=== PATIENT | female | born 1980 | race Caucasian/White ===

== ENCOUNTER 2021-12-10 15:27 | Outpatient (REF) | payer SELFPAY ==
--- OUTSIDE RECORDS SUMMARY | 2021-12-10 15:34 | XMS_ITS | Clinical Summary ---
:1980 Author Organization [facility] Address [address] [place] [address] Care Team Providers Name Role Phone Chelsea Ferrer APRN, C.N.P., D.N.P. Primary Care Provide r Source Comments Patient records contain information from all sites at [facility]. For routine questions regarding patient records, call [phone] during business hours, M-F 8:00 AM - 5:00 PM Central Time. Record requests for emergency care only can be directed to [phone] at any time.[facility] Allergies Active Allergy Reactions Severity Noted Date Comments Ketorolac Itching Low 07/16/2014 Tramadol GI intolerance Low 08/10/2014 Medications Medication Sig Dispensed Refills Start Date End Date Status MULTIVITAMIN WITH Take 1 capsule by 0 12/23/2012 Active MINERALS ORAL mouth daily. ACETAMINOPHEN ORAL Take by mouth. 0 07/16/2014 Active IBUPROFEN ORAL ibuprofen 0 07/16/2014 Acti ve propranolol Take 1 tablet (20 60 tablet 2 07/15/2017 Active (for_INDERAL) 20 mg mg total) by mouth tablet 2 (two) times a day. dextroamphetamine-amph Take 1 tablet (5 60 tablet 0 11/14/2017 Active etamine (ADDERALL) 5 mg total) by mouth mg tablet 2 (two) times a day Earliest Fill Date: 11/14/17. zolpidem (AMBIEN) 5 mg Take 1 tablet (5 30 tablet 1 11/14/2017 Active tablet mg total) by mouth at bedtime as needed for sleep. predniSONE (DELTASONE) Take 6 tabs (60mg) 42 tablet 0 07/30/19 19 Active 10 mg tablet daily for 2 days, then take 5 tabs (50mg) daily for 2 days. Continue to decrease by 1 tab (10mg) every 2 days until gone. 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 Headache Unspecified 07/14/2011 Encounters Date Type Specialty Care Team Description 10/03/2021 Telemedicine General Internal Alex Perez Personal History Of Infectious And Parasitic Disease (COVID-19) (Primary Dx); Medicine Shakila Saez Post COVID-19 Condition Parag Mark M.D. 09/09/2021 Clinical Communication General Internal Prescheduling, Triage Medicine Provider from Last 3 Months Immunizations Name Administration Dates Next Due Influenza Split 01/27/2016 Influenza, Unspecified 02/07/2017, 01/25/2015, 02/14/2014, 1 MMR 10/09/2016 Tdap 10/05/2016 Family History Medical History Relation Name Comments Migraines Brother Hypertension Father Alzheimer's disease Grandfather paternal Breast cancer Grandmother maternal Migraines Mother Ulcerative colitis Mother colonectomy w ith j-pouch Depression Sister Relation Name Status Comments Brother Father Grandfather paternal Grandmother maternal Mother Sister Social History Tobacco Use Types Packs/Day Years Used Date Smoking Tobacco: Never Smokeless Tobacco: Never Alcohol Use Standard Drinks/Week Comments Yes 0 (1 standard drink = 0.6 oz pure alcoho l) OCC Alcohol Habits Answer Date Recorded How often do you have a drink containing alcohol? Not asked How many drinks containing alcohol do you have on a typical Not asked day when you are drinking? How often do you have six or more drinks on one occasion? 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 Body Mass Index 22.31 03/01/2017 2:02 PM BUTCHER HELPER Plan of Treatment Health Maintenance Due Date Last Done Comments Depression Monitoring 1980 (PHQ-9) HIV Screening 1980 Hepatitis C Screening 1980 Mammogram 11/06/2016 11/07/2015 Fasting Lipid Panel 09/29/2017 09/29/2012 Influenza Vaccine (#1) 2022 02/27/2021, 02/27/2021, 02/20/2020, Additional history exists DTaP,Tdap,and Td Vaccines 10/05/2026 10/05/2016, 10/07/2011 , (8 - Td or Tdap) 08/14/2006, Additional history exists Hepatitis B Vaccines Completed 02/04/2005, 08/10/2004, 10/03/2003 COVID-19 Vaccine Completed 03/11/2021, 07/13/2020, 05/19/2020 Pneumococcal vaccine (0-64 Aged Out No lo nger eligible years) based on patient 's age to complete this topic Insurance Payer Benefit Plan / Subscriber ID Effective Phone Address T ype Group Dates PREFERREDONE PREFERREDONE [id number] 2018-Pr [phone] PPO ADMINISTRATIVE ADMINISTRATIVE esent [phone] SERVICES SERVICES [place] [phone] 1988 [address] [place] [address] Care Teams Mother Baby Rn Relationship Specialty Start Date End Date Chelsea Ferrer, NGHIA, C.N.P., D.N.P. PCP - General 01/05/18 [address] [address]
--- OUTSIDE RECORDS SUMMARY | 2021-12-10 15:35 | XMS_ITS | Encounter Summary ---
:1980 Author Organization [facility] Address [address] [place] [address] Care Team Providers Name Role Phone Carlos Nolan M.D. Primary Care Provider [phone] Reason for Visit Reason Comments Communication LABS PRIOR TO HER MED REFILL ? Encounter Details Date Type Department Care Team Description 03/25/2017 Clinical Department of [place] Nolan (LABS Communication Family MedicineCarlos M.D. 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 DISTRIBUTOR TENDER Telephone Encounter - Ana Bedoya L.P.N. - 03/25/2017 4:21 PM OIL DISTRIBUTOR TENDER DISTRIBUTOR TENDER Telephone Encounter - Armani Garcia - 03/25/2017 8:17 AM CST Denice is coming for her med refill on 05-05-17 and can do lab work on 05-04-16 at 9 AM. DISTRIBUTOR TENDER documented in 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 Plan of Treatment Not on filedocumented as of 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 Visit Diagnoses Diagnosis General Medical Examination Adult - Prim edwige documented in 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 Additional Health Concerns Assessment Noted Time PHQ-9 Depression Total Score: 2 09/03/2016 10:31 AM CD T documented as of 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 Care Teams Blockmason Relationship Specialty Start Date End Date Carlos Nolan M.D. PCP - General 10/08/16 01/04/18 documented as of 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
--- OUTSIDE RECORDS SUMMARY | 2021-12-10 15:35 | XMS_ITS | Encounter Summary ---
:1980 Author Organization [facility] Address [address] [place] [address] Care Team Providers Name Role Phone NabilBunnyChelseakaveh Hewitt APRN, C.N.P., D.N.P. Primary Care Provide r Reason for Visit Appointment Request (Routine) - Closed Specialty Diagnoses / Procedures Referred By Contact Refer red To Contact Allergy and Immunology Referral ID Status Reason Start Date Expiration Date Visits Requ ested Visits Authorized [id number] Closed 07/18/2018 07/18/2019 1 1 Encounter Details Date Type Department Care Team Description 07/29/2018 Office Visit Division of Allergic [place], Thanai, Harvey matitis Contact (Primary Dx); Diseases in [place] Rhinitis Allergic [place] [address] [facility] [address] [place] [phone] Social History Tobacco Use Types Packs/Day Years [...] at Date Recorded 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 - 07/29/2018 2:30 PM CDT SUBJECTIVE REFERRAL Established CHIEF COMPLAINT / REASON FOR VISIT Follow-up of contact dermatitis and chronic rhinitis HISTORY OF PRESENT ILLNESS Denice Arcos is a 38 y.o. female who presents today for follow-up of her history of contact dermatitis and chronic rhinitis. I last saw Mrs. Arcos in clinic on 03/01/2017. She has a history ofcontact dermatitis to wool products. She has been evaluated by Dermatology for this same issue. She notes no skin issues as long as she continues avoidance of wool products. In terms of her chronic rhinitis, Mrs. Arcos has a history of both allergic rhinitis and rhinitis medicamentosa. She has had difficulty weaning off of Afrin in the past despite using a Medrol Dosepak.She notes continued rhinitis symptoms consisting primarily of nasal congestion and postnasal drainage. She is using Afrin on an almost daily basis. She had been using Flonase previously, but it was discontinued due to associated headaches. Data: Allergy skin testing was last performed on 12/21/2016 that demonstrated positive results to dust mite and to several grasses. MEDICATIONS Current Outpatient Prescriptions on File Prior to Visit Medication Sig Dispense Refill ??? ACETAMINOPHEN ORAL Take by mouth. ??? dextroamphetamine-amphetamine (ADDERALL) 5 mg tablet Take 1 tablet (5 mg total) by mouth 2 (two)times a day Earliest Fill Date: 11/14/17. 60 tablet 0 ??? IBUPROFEN ORAL ibuprofen ??? MULTIVITAMIN WITH MINERALS ORAL Take 1 capsule by mouth daily. ??? propranolol (for_INDERAL) 20 mg tablet Take 1 tablet (20 mg total) by mouth 2 (two) times a day.60 tablet 2 ??? zolpidem (AMBIEN) 5 mg tablet Take 1 tablet (5 mg total) by mouth at bedtime as needed for sleep. 30 tablet 1 No current facility-administered medications on file prior to visit. ALLERGIES/ADVERSE REACTIONS Allergies Allergen Reactions ??? Toradol [Ketorolac] Itching ??? Tramadol GI intolerance REVIEW OF SYSTEMS Pertinent positives and negatives included in the History of Present Illness. ENT: Positive for sinus congestion. The following systems were negative: Constitutional, Skin, Eyes, CV, Respiratory, GI, , Hematologic, Musculoskeletal, Neuro, Psych The following portions of the patient's history were reviewed and updated as appropriate: medical history, surgical history, family history, and social history. OBJECTIVE PHYSICAL EXAM Vitals: 07/29/18 1420 Temp: 36.9 ??C TempSrc: Tympanic General: Alert in no acute distress. Head: Normocephalic, atraumatic. ENT: Ears: Tympanic membranes clear bilaterally. Nose: Erythematous nasal mucosa; no visible nasal polyps on anterior inspection. Mouth and throat are unremarkable. Lungs: Clear bilaterally. No wheezes, crackles, or rubs. Good air exchange. Heart: Regular rate and rhythm. Normal S1, S2. Neurologic: Nonfocal. Normal gait. Skin: No urticaria or angioedema. ASSESSMENT / PLAN #1 Contact dermatitis #2 Allergic rhinitis #3 Rhinitis medicamentosa In terms of her contact dermatitis, Mrs. Arcos should continue avoidance of wool products. For her chronic rhinitis symptoms, I advised her to start Zyrtec 10 mg daily as well as Nasacort AQ nasal spray two sprays to each nostril once daily. I also prescribed her a prolonged prednisone taper to assist with the weaning of her Afrin nasal spray. If she has continued rhinitis issues, she may contact meat her convenience. She voiced understanding of our discussion, and she had no further questions at the end of her visit. documented in 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 Plan of Treatment Not on filedocumented as of 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 Visit Diagnoses Diagnosis Dermatitis Contact - Primary Rhinitis Allergic documented in 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 Additional Health Concerns Assessment Noted Time PHQ-9 Depression Total Score: 1 05/14/2017 7:51 AM CAGE/VAULT SUPERVISOR documented as of 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 Care Teams Inspector Canvas Products Relationship Specialty Start Date End Date Chelsea Ferrer APRN, C.N.P., D.N.P. PCP - General 01/05/18 [address] [place] [address] documented as of 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
--- OUTSIDE RECORDS SUMMARY | 2021-12-10 15:35 | XMS_ITS | Encounter Summary ---
:1980 Author Organization [facility] Address [address] [place] [address] Care Team Providers Name Role Phone Carlos Nolan M.D. 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 documented in 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 Results DERMATOLOGY IMAGE EXAM (02/08/2017 12:00 PM CDT) Specimen (Source) Anatomical Collection Method Collection Time Re ceived Time Location / / Volume Laterality 02/08/2017 12:00 PM CDT Narrative [facility] - 02/08/2017 12:05 PM CDT This order has been created and auto-finalized to support the import of images acquired without order. The clini seth documentation to support these images can be found on the encounter mable t produced images. Provider Not In System IMG NON RAD IMAGING PROCEDUR ES Performing Organization Address City/State/ZIP Code Phon e Number [facility] NA documented in 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 Visit Diagnoses Not on filedocumented in 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 Additional Health Concerns Assessment Noted Time PHQ-9 Depression Total Score: 2 09/03/2016 10:31 AM CD T documented as of 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 Care Teams Power Press Supervisor Relationship Specialty Start Date End Date Carlos Nolan M.D. PCP - General 10/08/16 01/04/18 documented as of 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
--- OUTSIDE RECORDS SUMMARY | 2021-12-10 15:35 | XMS_ITS | Encounter Summary ---
:1980 Author Organization [facility] Address [address] [place] [address] Care Team Providers Name Role Phone Carlos Nolan M.D. Primary Care Provider Encounter Details Date Type Department Care Team Description 11/10/2016 Hospital Encounter HX [facility] Garrick Foster M.D. 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 0 07/16/2014 IBUPROFEN ORAL ibuprofen 0 07/16/2014 MULTIVITAMIN WITH MINERALS Take 1 capsule by 0 ORAL mouth daily. documented as of 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 Miscellaneous Notes Miscellaneous - Dominga Foster M.D. - 11/10/2016 2:16 PM CDT Reminder Msg Document Contains Addenda Addendum by JEANNINE FARR RN on November 10, 2016 14:30:27 CDT Pt advised and voiced understanding. From: DOMINGA FOSTER MD To: [facility]iat[facility]/Physical Medicine Rehab Nurse Line; Sent: 11/10/2016 14:16:27 CDT Show up: 11/10/2016 14:15:00 CDT Subject: Reminder Msg Please Remember to: Hi x-ray: FINDINGS: Bilateral hip joints and bilateral sacroiliac joints appear unremarkable. No evidence of fracture or dislocation. Lower pelvic phleboliths. PATIENT: ( x ) Call Patient ( ) Ask Patient to ( ) ( ) Call Relative ( ) Schedule Patient ( ) ( ) Call for Felt Hanger ( ) Follow up on Results ( ) Other: PROVIDER: ( ) Call Physician ( ) Call Pharmacist ( ) Call Lab ( ) Other: Special Instructions: Comments: Source: [facility] minicabit Document Id: [id number] Electronically signed by Zac [facility] Editor Dictionary [id number] at 11/11/2016 7:07 AM CDT documented in 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 Plan of Treatment Not on filedocumented as of 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 Procedures Procedure Name Priority Date/Time Associated Diagnosis Comme nts DX HIP AND PELVIS Routine 11/10/2016 1:19 PM Resu lts for this RIGHT 1 VIEW CDT procedure are i n the results section. documented in 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 Results DX Hips And Pelvis Right 1 View (11/10/2016 1:19 PM CDT) Anatomical Region Laterality Modality Lower Extremity, Pelvis, Hip Right Radiographi c Imaging Specimen (Source) Anatomical Collection Method Collection Time Re ceived Time Location / / Volume Laterality 11/10/2016 1:19 PM CDT Addenda Addendum by ProviderTyshawn M.D. o n 11/10/2016 1:19 PM CDT RAD^^^AL XR Pelvis Hip Right 1 view 11/10/2016 13:19:51 XR Pelvis Hip Right 1 view Addendum by ProviderTyshawn M.D. o n 11/10/2016 1:19 PM CDT RAD^^^AL XR Pelvis Hip Right 1 view 11/10/2016 13:19:51 XR Pelvis Hip Right 1 view Impressions 11/10/2016 1:44 PM CDT See below findings. FINDINGS: Bilateral hip joints and bilat eral sacroiliac joints appear unremarkable. No evidence of fracture or dislocation. Lower pelvic phleboliths. Narrative 11/10/2016 1:44 PM CDT EXAM: XR Pelvis Hip Right 1 view INDICATION: hip pain COMPARISON: None. ?? Procedure Note Jose Goel M.D. / Provider, His ryder M.D. - 01/28/2017 EXAM: XR Pelvis Hip Right 1 view INDICATION: hip pain COMPARISON: None. IMPRESSION: See below findings. FINDINGS: Bilateral hip joints and bilat eral sacroiliac joints appear unremarkable. No evidence of fracture or dislocation. Lower pelvic phleboliths. Adelaida Garrison(R)(CT), Bladimir(R) IMG DIAGNOSTIC IMAGING PROCEDURES documented in 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 Visit Diagnoses Not on filedocumented in 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 Additional Health Concerns Assessment Noted Time PHQ-9 Depression Total Score: 2 09/03/2016 10:31 AM CD T documented as of 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 Care Teams Cigarette Catcher Relationship Specialty Start Date End Date Carlos Nolan M.D. PCP - General 10/08/16 01/04/18 documented as of 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
--- OUTSIDE RECORDS SUMMARY | 2021-12-10 15:35 | XMS_ITS | Encounter Summary ---
:1980 Author Organization [facility] Address [address] [place] [address] Care Team Providers Name Role Phone Carlos Nolan M.D. 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 Nolan and was brought to 4th floor, front end technician to be faxed to Madi HEBERT documented in 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 Plan of Treatment Not on filedocumented as of 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 Visit Diagnoses Not on filedocumented in 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 Additional Health Concerns Assessment Noted Time PHQ-9 Depression Total Score: 1 05/14/2017 7:51 AM WELLNESS INSTRUCTOR documented as of 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 Care Teams Adult Education Professional Relationship Specialty Start Date End Date Carlos Nolan M.D. PCP - General 10/08/16 01/04/18 documented as of 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
--- OUTSIDE RECORDS SUMMARY | 2021-12-10 15:35 | XMS_ITS | Encounter Summary ---
:1980 Author Organization [facility] Address [address] [place] [address] Care Team Providers Name Role Phone Carlos Nolan M.D. Primary Care Provider [phone] Encounter Details Date Type Department Care Team Description 06/15/2017 Orders Only [facility], Ashwin Cardona M .D. 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 PCP - General 10/08/16 01/04/18 documented as of 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
--- OUTSIDE RECORDS SUMMARY | 2021-12-10 15:35 | XMS_ITS | Encounter Summary ---
:1980 Author Organization [facility] Address [address] [place] [address] Care Team Providers Name Role Phone Carlos Nolan M.D. Primary Care Provider [phone] Reason for Referral Medication Prior Authorization (Routine) - Closed Specialty Diagnoses / Procedures Referred By Contact Refer red To Contact Carlos Nolan M.D. [address] [place] [phone] Referral ID Status Reason Start Date Expiration Date Visits Requ ested Visits Authorized [id number] Closed . UNIX SYSTEM ADMINISTRATOR Encounter Details Date Type Department Care Team Description 06/11/2017 Orders Only Department of [facility] Carlos Nolan, Medicine, Jarod Hall M.D. 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 UNIX SYSTEM ADMINISTRATOR documented as of 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 Care Teams Dental Professional Relationship Specialty Start Date End Date Carlos Nolan M.D. PCP - General 10/08/16 01/04/18 documented as of 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
--- OUTSIDE RECORDS SUMMARY | 2021-12-10 15:35 | XMS_ITS | Encounter Summary ---
:1980 Author Organization [facility] Address [address] [place] [address] Care Team Providers Name Role Phone Carlos Nolan M.D. Primary Care Provider [phone] Encounter Details Date Type Department Care Team Description 05/31/2017 Orders Only Department of Wound Care [place] Nolan i, Medicine in Jarod Hall M.D. 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 PCP - General 10/08/16 01/04/18 documented as of 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
--- OUTSIDE RECORDS SUMMARY | 2021-12-10 15:35 | XMS_ITS | Encounter Summary ---
:1980 Author Organization [facility] Address [address] [place] [address] Care Team Providers Name Role Phone Carlos Nolan M.D. Primary Care Provider [phone] Reason for Visit Reason Onset Date Comments Medication Problem 05/14/2017 Encounter Details Date Type Department Care Team Description 05/14/[address] of [facility], Carlos Peña M.D. 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 - 05/17/2017 8:18 AM CARVING MACHINE OPERATOR Per Dr Nolan pt is call us once she gets to her destination and he will send the prescription there. Contacted pt and she stated that because of the shut down she was not able to leave town, she was told Madi was getting the medication today so she might be able to get medication here but if she doesn't she will call us once she reaches her destination. ING MACHINE OPERATOR Telephone Encounter - Colleen Rhodes R.N. - 05/14/2017 10:29 AM CARVING MACHINE OPERATOR Please advise ING MACHINE OPERATOR Telephone Encounter - Elisabeth Lyn - 05/14/2017 10:02 AM CST Medication that was prescribed this morning is not in stock at pharmacy. Patient is leaving with themilitary Wednesday and needing something more common she can get today. [facility]. ING MACHINE OPERATOR documented in 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 Plan of Treatment Not on filedocumented as of 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 Visit Diagnoses Not on filedocumented in 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 Additional Health Concerns Assessment Noted Time PHQ-9 Depression Total Score: 1 05/14/2017 7:51 AM CARVING MACHINE OPERATOR documented as of 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 Care Teams Engineer [employer] Relationship Specialty Start Date End Date Carlos Nolan M.D. PCP - General 10/08/16 01/04/18 documented as of 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
--- OUTSIDE RECORDS SUMMARY | 2021-12-10 15:35 | XMS_ITS | Encounter Summary ---
:1980 Author Organization [facility] Address [address] [place] [address] Care Team Providers Name Role Phone Carlos Nolan M.D. Primary Care Provider [phone] Reason for Visit Reason Comments Med Refill Encounter Details Date Type Department Care Team Description 05/20/2017 Refill Department of Family Medicine, Carlos Agudelo M.D. 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 - 05/20/2017 10:28 AM CORN HUSKER MACHINE OPERATOR Please confirm the dose requested per availability. Thanks. HUSKER MACHINE OPERATOR Telephone Encounter - Cari Zelaya - 05/20/2017 8:07 AM CST Nurse Review: Pharmacy Communication Provider: Dr. Nolan Medication: Butalbital/APAP Strength: 50-300 Pharmacy Comment: Rx for Butalbital 50/APAP 300 is not available at this time. Her previous Rx was for the 50-325 formulation. If this is ok, please send an Rx for the butalbital/APAP 50-325 that is available. Thank you. HUSKER MACHINE OPERATOR documented in 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 Plan of Treatment Not on filedocumented as of 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 Visit Diagnoses Not on filedocumented in 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 Additional Health Concerns Assessment Noted Time PHQ-9 Depression Total Score: 1 05/14/2017 7:51 AM CORN HUSKER MACHINE OPERATOR documented as of 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 Care Teams Wire Brush Operator Relationship Specialty Start Date End Date Carlos Nolan M.D. PCP - General 10/08/16 01/04/18 documented as of 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
--- OUTSIDE RECORDS SUMMARY | 2021-12-10 15:35 | XMS_ITS | Encounter Summary ---
:1980 Author Organization [facility] Address [address] [place] [address] Care Team Providers Name Role Phone Chelsea Ferrer APRN, C.N.P., D.N.P. Primary Care Provide r Encounter Details Date Type Department Care Team Description 12/01/2018 Orders Only [facility] PCP [facility] Chelsea Ferrer, Sc reening Mammogram MNT [facility] C.N.P., D. N.P. 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 PCP - General 01/05/18 [address] [phone] documented as of 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
--- OUTSIDE RECORDS SUMMARY | 2021-12-10 15:35 | XMS_ITS | Encounter Summary ---
:1980 Author Organization [facility] Address [address] [place] [address] Care Team Providers Name Role Phone Carlos Nolan M.D. Primary Care Provider Reason for Visit Reason Comments Med Refill Encounter Details Date Type Department Care Team Description 07/06/2017 Refill Department of Family Medicine, Carlos Agudelo M.D. 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 PCP - General 10/08/16 01/04/18 documented as of 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
--- OUTSIDE RECORDS SUMMARY | 2021-12-10 15:35 | XMS_ITS | Encounter Summary ---
:1980 Author Organization [facility] Address [address] [place] [address] Care Team Providers Name Role Phone Carlos Vang M.D. Primary Care Provider [phone] Encounter Details Date Type Department Care Team Description 10/30/2016 Hospital Encounter [facility] Carlos Vang M.D. 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 0 07/16/2014 IBUPROFEN ORAL ibuprofen 0 07/16/2014 MULTIVITAMIN WITH MINERALS Take 1 capsule by 0 ORAL mouth daily. documented as of 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 Progress Notes Carlos Vang M.D. - 10/30/2016 9:24 AM CDT [id number] CHIEF COMPLAINT/REASON FOR VISIT 1. Presumed wool allergy. 2. Right hip/right lower quadrant abdominal pain. HISTORY OF PRESENT ILLNESS Jeannine comes in her to have herself evaluated. She informs me that approximately a few weeks ago, she did come in contact with wool/woolen blanket. She says that she started having a rash in the armsas well as the neck and some tingling sensations in her lips with some bluish discoloration. She wasgiven some Benadryl immediately which helped with the symptoms. Jeannine had similar symptoms in the past and she is here to have this further evaluated. She informs me that the [employer] does require further evaluation completed. She declines any chest pain, shortness of breath, nausea, vomiting, or diarrhea. Jeannine also comes in today regarding her right-sided lower quadrant abdominal pain. We had worked this up in the past with a CT scan of the abdomen and pelvis without any significant findings. Jeannine says that she continues to feel some pain in the right lower quadrant/groin area. This can happen insidiously and sometimes can happen after exertion as well. For example, she did run 7 miles yesterday and after which the pain started then lasted for approximately an hour or 2. She declines any weakness of the extremities. Declines any bowel or bladder incontinence. Declines any back pain. She would like to have this further evaluated. PAST MEDICAL/SURGICAL HISTORY Reviewed on 10/30/2016. SOCIAL HISTORY Reviewed on 10/30/2016. FAMILY HISTORY Reviewed on 10/30/2016. MEDICATIONS Reviewed on 10/30/2016. ALLERGIES Reviewed on 10/30/2016. SYSTEMS REVIEW As above. All other systems reviewed and negative. PHYSICAL EXAMINATION VITAL SIGNS: Blood pressure 118/68, heart rate of 76, temperature 37.2. Weighs 60.6 kg. GENERAL: Alert, awake, and oriented x3. Not in distress. SPINE: No significant deformity noted. ABDOMEN: Soft, nontender. No organomegaly. No tenderness on the right quadrant noted. MUSCULOSKELETAL: Hip was examined. No significant deformity noted. Range of motion was normal. Strength was noted to be normal. She did complain of slight discomfort in the groin area. IMPRESSION/REPORT/PLAN 1. Presumed allergy to wool. Further testing has been recommended. A consultation to [facility]. She agrees with the plan. 2. Right-sided hip pain/right lower quadrant abdominal pain. The CT scan done fairly recently was noted to be negative. Further workup as well as management options were discussed. Conservative management has been recommended. In the meantime, we also did discuss evaluation by a physical therapist andshe agrees with the plan. If the symptoms do persist after the therapy, possibility of evaluation [facility] has been recommended and she agrees with the plan as well. I will have her come back to us as needed now. Vinod Orr/suly Electronically Signed By: CARLOS VANG MD On: 11/02/2016 02:21 PM Source: [facility] MHSDOLBEYNONRADSYS Document Id: [id number] documented in 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 Nursing Notes Negin Bedoya L.P.N. - 10/30/2016 2:42 PM CDT Referral to [facility]Allergy Dept Per Dr Vang referral sent to [facility] Allergy Dept to be tested for any Wool allergies Electronically Signed By: NEGIN BEDOYA LPN On: 10/30/2016 02:42 PM Source: [facility] POWERCHART Document Id: [id number] documented in 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 Miscellaneous Notes Miscellaneous - Carlos Vang M.D. - 10/30/2016 12:09 PM CDT Ambulatory Patient Summary [facility] [address] [facility] [address] [place] [id number] Visit Information Name: JEANNINE OWENS [facility] Number: [id number] Current Date: 10/30/2016 12:09:10 Physicians Attending Provider: CARLOS VANG MD Primary Care Provider: CARLOS VANG MD BETTY OWENSBRITTNY NEW has been given the following list of follow-up instructions, medication list,and patient education materials: Follow-up Instructions Your Medications Here is a list of your medications. It is important to take your medications as directed. Use a pillbox or chart to help remind you to take your medications. Please let your doctor or nurse know if you have problems taking your medications. Medication/Strength How to Take Indications/Special Instructions/Comments/Notes for Patient Medication Changes/Routing acetaminophen (Tylenol) Oral dextroamphetamine-amphetamine (dextroamphetamine-amphetamine 5 mg oral tablet) See Instructions 1 tab(s) PO with breakfast and lunch / (Adderal) please call pt for leaf size picker. Pt uses [facility]. DULoxetine (DULoxetine 40 mg oral delayed release capsule) 1 cap, Oral, once a day hydrOXYzine (hydrOXYzine pamoate 25 mg oral capsule) 1 cap, Oral, four times a day as needed for itching x 7 day(s) New Routed to [address] [id number] ibuprofen (ibuprofen) multivitamin with minerals (multivitamin with minerals Multiple Vitamins with Zinc oral capsule) 1 cap, Oral, once a day with magnesium Stop Taking the Following Medications: Medication list as of 10-30-16 12:09 Attention: If you have any medications at home that are not on this list, DO NOT take them until youcontact your provider for clarification. Give a copy of your medication list to your primary care provider. Update your medication list any time medications or doses are changed and carry your medication list at all times in case of emergency. Electronically Signed By: CARLOS VANG MD Signed On:30-OCT-2016 12:09:06 Your Allergies & Intolerances Substance Reaction Symptoms Category Comments Toradol IV/IM pruritis Drug traMADol nausea, dizzy Drug Your Problem List Problem Status Onset Comments Anxiety disorder NOS Active 07/01/2011 Palpitation Active 07/01/2011 Sleep disturbance, unspecified Active 07/14/2011 Flushing Active 07/14/2011 Headache Active 07/14/2011 Tachycardia NOS Active 07/14/2011 ADHD. Active Depression Active 02/12/12 external records Posttraumatic Stress Disorder Active 02/12/12 external records Closed fracture of phalanx of foot Active 01/23/2013 Pain Neck Active Pain Limb Generalized Active Pain Myofascial Cervical Active Pain Thoracic Myofascial Active Headache (CHRISTINE) Cervicogenic Active Your Upcoming Appointments Date Time Location Provider No Appointments found Attention: Contact your local Clinic if further appointment detail needed. Consider Using Patient Online Services Patient Online Services is a secure online and Mobile application that lets you: ?? View lab and test results ?? View portions of your medical record including clinical notes, immunizations and discharge summaries ?? Request an appointment or medication refill ?? Review your appointment schedule ?? Send secure messages to your care team Its easy to create an account if you dont have one. Go [email or web address] and click on Create Your Account. Then, follow the directions to complete the online form. Youll be asked for your [facility] number which you can find at the top of this document. Your Goals/Additional instructions: Source: [facility] POWERCHART Document Id: [id number] Miscellaneous - Carlos Vang M.D. - 10/30/2016 12:09 PM CDT Ambulatory Discharge Medication List [address] [id number] Visit Information Name: JEANNINE OWENS [facility] Number: [id number] Current Date: 10/30/2016 12:09:09 Attending Provider: CARLOS VANG MD Primary Care Provider: CARLOS VANG MD JEANNINE OWENS has been given the following list of medications: Your Medications It is important to take your medications as directed. Use a pill box or chart to help remind you to take your medications. Please let your doctor or nurse know if you have problems taking your medications. Medication/Strength How to Take Indications/Special Instructions/Comments/Notes for Patient Medication Changes/Routing acetaminophen (Tylenol) Oral dextroamphetamine-amphetamine (dextroamphetamine-amphetamine 5 mg oral tablet) See Instructions 1 tab(s) PO with breakfast and lunch / (Adderal) please call pt for leaf size picker. Pt uses [facility]. DULoxetine (DULoxetine 40 mg oral delayed release capsule) 1 cap, Oral, once a day hydrOXYzine (hydrOXYzine pamoate 25 mg oral capsule) 1 cap, Oral, four times a day as needed for itching x 7 day(s) New Routed to [place] [address] [place], [place] [id number] ibuprofen (ibuprofen) multivitamin with minerals (multivitamin with minerals Multiple Vitamins with Zinc oral capsule) 1 cap, Oral, once a day with magnesium Stop Taking the Following Medications: Medication list as of 10-30-16 12:09 Attention: If you have any medications at home that are not on this list, DO NOT take them until youcontact your provider for clarification. Give a copy of your medication list to your primary care provider. Update your medication list any time medications or doses are changed and carry your medication list at all times in case of emergency. Electronically Signed By: CARLOS VANG MD Signed On:30-OCT-2016 12:09:06 Additional Information: Source: [facility] POWERCHART Document Id: [id number] Miscellaneous - Negin Bedoya, L.P.N. - 10/30/2016 9:38 AM CDT Adult Shutdown Planner Intake/History Adult Shutdown Planner Intake/History Entered On: 10/30/2016 9:40 CDT Performed On: 10/30/2016 9:38 CDT by NEGIN BEDOYA [facility] Intake Chief Complaint : Lower right quadant pain/ Wanst referral to get tested for allergies Temperature Core : 37.2 DegC(Converted to: 99.0 DegF) Peripheral Pulse Rate : 76 /min Systolic Blood Pressure : 118 mmHg Diastolic Blood Pressure : 68 mmHg NIBP Mean : 85 mmHg BP Location : Right upper extremity Blood Pressure Cuff Size : Regular Height : 166 cm(Converted to: 5 ft 5 inch(es), 65 inch(es)) Actual Weight : 60.6 kg(Converted to: 133 lb 10 oz) Weight Source : Standing scale Dosing Weight Clinic : 60.6 kg Clinic BSA : 1.67 Body Mass Index : 21.99 kg/m2 NEGIN BEDOYA LPN - 10/30/2016 9:38 CDT General Info Information Given By : Patient Languages : Kittitian Is Patient Female and 13-50 no hysterectomy : No NEGIN BEDOYA [facility] - 10/30/2016 9:38 CDT Subjective Pain Symptoms : NEGIN Eller [facility] - 10/30/2016 9:38 CDT Dependent Habits Exposure to Tobacco Smoke : Care provider denies smoking in home, Other: NEVER Smoking Status : Never smoker Tobacco 2A : No Tobacco Use/Currently Using : No Tobacco Use/Last 30 Days : No Tobacco Use/Last 12 months : No Alcohol Use : No NEGIN BEDOYA LPN - 10/30/2016 9:38 CDT Caffeine Use Grid Caffeine Use : Current Type : Soft drinks Frequency : Weekly Amount : 3 cans per week NEGIN BEDOYA [facility] - 10/30/2016 9:38 CDT Recreational Drug Use Grid Drug Use : None NEGIN BEDOYA [facility] - 10/30/2016 9:38 CDT Source: [employer] Document Id: [id number]!39 documented in 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 Plan of Treatment Not on filedocumented as of 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 Visit Diagnoses Not on filedocumented in 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 Additional Health Concerns Assessment Noted Time PHQ-9 Depression Total Score: 2 09/03/2016 10:31 AM CD T documented as of 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 Care Teams Interior Design Consultant Relationship Specialty Start Date End Date Carlos Vang M.D. PCP - General 10/08/16 01/04/18 documented as of 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
--- OUTSIDE RECORDS SUMMARY | 2021-12-10 15:35 | XMS_ITS | Encounter Summary ---
:1980 Author Organization [facility] Address [address] [place] [address] Care Team Providers Name Role Phone Carlos Vang M.D. Primary Care Provider Encounter Details Date Type Department Care Team Description 12/28/2016 Hospital Encounter [facility] Hilario Cox, P.A. 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 0 07/16/2014 IBUPROFEN ORAL ibuprofen 0 07/16/2014 MULTIVITAMIN WITH MINERALS Take 1 capsule by 0 ORAL mouth daily. documented as of 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 Progress Notes Hilario Lomas - 12/28/2016 3:46 PM CDT [id number] Denice is a 36-year-old female who comes in today with complaints of UTI symptoms with burning. She states that symptoms started about a month ago and when they became more than she thought she couldhandle she went to her workplace walk-in clinic I suppose. At that point, she had a positive UTI based on urine dip that was performed. She was started on Bactrim this was all on Wednesday, December 25.Today she states that her symptoms just seem to be getting worse with abdominal pain and burning with urination. She denies any discharge and she has not noticed any odors. She had a hysterectomy in 2013, but still has her ovaries. Outside of the Bactrim she has not really tried anything except for nba or to being seen she did try a 3-day [id number] anti-yeast medication, but that did not seem to help either. MEDICATIONS Reviewed. ALLERGIES Reviewed. PHYSICAL EXAMINATION VITALS: Stable. GENERAL: Denice is a pleasant, awake, alert, oriented, 36-year-old female, who does not appear to be in acute distress. Nontoxic appearance. ABDOMEN: Nondistended. Positive bowel sounds throughout. Soft and supple. No tenderness with palpation present. No masses noted. No hepatomegaly. No splenomegaly. No CVA tenderness. PELVIC: On examination of the external genitalia there does not appear to be any abnormalities or discharge present. On speculum exam, there was some thick white discharge present, but no irritation orerythema of the vaginal lining. DIAGNOSTICS Urinalysis was performed which only came back with trace amount of ketones, a few epithelial cells, and some mucous. It will be set up for culture. The vaginosis panel was performed which was negative. IMPRESSION/REPORT/PLAN DIAGNOSIS: Vaginitis. TREATMENT: At this time because she is on the Diflucan I did go ahead and treat her for yeast. She was given 2 tablets of Diflucan 150 mg with instructions of taking 1 now and saving 1 for after she finishes the Diflucan if she is still having symptoms. Since all of the vaginal panels were negative she was advised to get an appointment with her CONFERENCE SERVICE COORDINATOR for further evaluation. Patient agreed with plan, acknowledged understanding. Lenny Damon/suly Electronically Signed By: HILARIO LOMAS PA-C On: 12/28/2016 07:10 PM Source: [facility] MHSDOLBEYNONRADSYS Document Id: [id number] documented in 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 Miscellaneous Notes Miscellaneous - CadottDelbert Hilario Mariana - 12/28/2016 4:26 PM CDT Ambulatory Patient Summary [place] [place] [id number] Visit Information Name: DENICE OWENS [facility] Number: [id number] Current Date: 12/28/2016 16:26:43 Physicians Attending Provider: UNKNOWN1, PROVIDER Primary Care Provider: CARLOS VANG MD DENICE OWENS has been given the following list [...] lunch / (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 DULoxetine (DULoxetine 40 mg oral delayed release capsule) 1 cap, Oral, once a day fluconazole (Diflucan 150 mg oral tablet) 1 Tablet(s), Oral, once New Routed to [facility] [address] [place] [id number] ibuprofen (ibuprofen) multivitamin with minerals (multivitamin with minerals Multiple Vitamins with Zinc oral capsule) 1 cap, Oral, once a day with magnesium Stop Taking the Following Medications: Medication list as of 12-28-16 16:26 Attention: If you have any medications at home that are not on this list, DO NOT take them until youcontact your provider for clarification. Give a copy of your medication list to your primary care provider. Update your medication list any time medications or doses are changed and carry your medication list at all times in case of emergency. Electronically Signed By: Signed On: Your Allergies & Intolerances Substance Reaction Symptoms [...] if you dont have one. Go to [email or web address] and click on Create Your Account. Then, follow the directions to complete the online form. Youll be asked for your [facility] number which you can find at the top of this document. 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 [facility] DULoxetine (DULoxetine 40 mg oral delayed release capsule) 1 cap, Oral, once a day fluconazole (Diflucan 150 mg oral tablet) 1 Tablet(s), Oral, once New Routed to [address] [id number] ibuprofen (ibuprofen) multivitamin with minerals (multivitamin with minerals Multiple Vitamins with Zinc oral capsule) 1 cap, Oral, once a day with magnesium Stop Taking the Following Medications: Medication list as of 12-28-16 16:26 Attention: If you have any medications at home that are not on this list, DO NOT take them until youcontact your provider for clarification. Give a copy of your medication list to your primary care provider. Update your medication list any time medications or doses are changed and carry your medication list at all times in case of emergency. Electronically Signed By: Signed On: Additional Information: Source: [facility] POWERCHART Document Id: [id number] Miscellaneous - Alejandra Rodriguez, C.M.A. - 12/28/2016 4:26 PM CDT Pipe Smoker Machine Operator Documentation Pipe Smoker Machine Operator Documentation Entered On: 12/28/2016 16:26 CDT Performed On: 12/28/2016 16:26 CDT by ALEJANDRA RODRIGUEZ PHYSICIAN PRACTICE MARKET MANAGER Pipe Smoker Machine Operator Documentation Exam/Procedure Performed : Pelvic exam and Vag panel CD Pipe Smoker Machine Operator Present : Yes CD Pipe Smoker Machine Operator Name : Alejandra Rodriguez Present in Room During Exam/Procedure : Alone ALEJANDRA RODRIGUEZ [facility] - 12/28/2016 16:26 CDT Source: [facility] POWERCHART Document Id: [id number] CDT!6 Miscellaneous - Alejandra Rodriguez C.M.[place]inth[place] - 12/28/2016 3:56 PM CDT Adult Preventive Medicine Specialist Intake/History Adult Preventive Medicine Specialist Intake/History Entered On: 12/28/2016 15:59 CDT Performed On: 12/28/2016 15:56 CDT by ALEJANDRA RODRIGUEZ [facility] Intake Chief Complaint : UTI Temperature Core : 37.9 DegC(Converted to: 100.2 DegF) Peripheral Pulse Rate : 64 /min Respiratory Rate : 16 /min Heart Rhythm : Regular Systolic Blood Pressure : 110 mmHg Diastolic Blood Pressure : 64 mmHg NIBP Mean : 79 mmHg BP Location : Right upper extremity Blood Pressure Cuff Size : Regular Height : 166 cm(Converted to: 5 ft 5 inch(es), 65 inch(es)) Actual Weight : 58.1 kg(Converted to: 128 lb 1 oz) Weight Source : Standing scale Dosing Weight Clinic : 58.1 kg Clinic BSA : 1.64 Body Mass Index : 21.08 kg/m2 ALEJANDRA RODRIGUEZ [facility] - 12/28/2016 15:56 CDT General Info Information Given By : Patient Preferred Communication Mode : Verbal Languages : Stateless Is Patient Female and 13-50 no hysterectomy : No ALEJANDRA RODRIGUEZ [facility] - 12/28/2016 15:56 CDT Subjective Pain Symptoms : No ALEJANDRA [facility]RIG[facility] - 12/28/2016 15:56 CDT Dependent Habits Exposure to Tobacco Smoke : Care provider denies smoking in home, Other: NEVER Smoking Status : Never smoker Tobacco 2A : No Tobacco Use/Currently Using : No Tobacco Use/Last 30 Days : No Tobacco Use/Last 12 months : No ALEJANDRA RODRIG[facility] - 12/28/2016 15:56 CDT Caffeine Use Grid Caffeine Use : Current Type : Soft drinks Frequency : Weekly Amount : 3 cans per week ALEJANDRA R[facility]IG[facility] - 12/28/2016 15:56 CDT Recreational Drug Use Grid Drug Use : None ALEJANDRA RODRIGUEZ PHYSICIAN PRACTICE MARKET MANAGER - 12/28/2016 15:56 CDT Source: [facility] POWERCHART Document Id: [id number] CDT!41 documented in 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 Plan of Treatment Not on filedocumented as of 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 Procedures Procedure Name Priority Date/Time Associated Diagnosis Comme nts VAGINITIS BATTERY, Routine 12/28/2016 4:26 PM Res ults for this DNA (GENITAL) CDT procedure are in the results section. URINALYSIS, Routine 12/28/2016 3:50 PM Results f or this MIDSTREAM, WITH CDT procedure ar e in CULTURE IF the results INDICATED section. documented in 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 Results VAGINITIS BATTERY, DNA (GENITAL) (12/28/2016 4:26 PM CDT) Component Value Ref Test Analysis Performed At [facility] gist Range Method Time Signature HXVaginitis POWERCHART Battery, DNA (Genital) HXFinal Trichomonas POWERCHART vaginalis DNA negative HXFinal Gardnerella POWERCHART vaginalis DNA negative HXFinal Yomaira species POWERCHART DNA negative HXFinal Reference: POWERCHART Negative Specimen (Source) Anatomical Collection Method Collection Time Re ceived Time Location / / Volume Laterality Vagina 12/28/2016 4:26 PM CDT Hilario Keenan LAB HISTORICAL ORDERS Performing Organization Address City/State/ZIP Code Phon e Number POWERCHART POWERCHART NA (ABNORMAL) Urinalysis, Midstream, with culture if indicated (12/28/2016 3:50 PM CDT) Analysis Performed At Patho logist Time Signature Clarity Clear Clear POWERCHART HXUr Color Colorless Colorless POWERCHART Specific 1.001 POWERCHART [place], POCT, U Comment: Reference Range Specific [place]: 1.000-1.035 pH, POCT, Urine 6.5 <5.0 POWERCHART Comment: Reference Range pH: 5.0-8.0 Protein, Ur, Dip Negative Negative MGDL POWERCHAR T Glucose Negative Negative MGDL POWERCHART Ketones, QL(U) Trace (A) Negative MGDL POWERCHART HXBILIRUBIN Negative Negative POWERCHART HXBLOOD Negative Negative POWERCHART Leukocyte Esterase Negative Negative POWERCHART HXNITRITE Negative Negative POWERCHART Urobilinogen 0.2 0.2 MGDL POWERCHART Comment: Reference Range Urobilinogen: 0.2-1.0 mg/dL HXUR WBC. None Seen None Seen HPF POWERCHART HXUR RBC. None Seen None Seen HPF POWERCHART Squamous Epithelial Occ-3 (A) None Seen HPF POWERC RUIZ Mucus Present (A) None Seen POWERCHART Specimen (Source) Anatomical Collection Method Collection Time Re ceived Time Location / / Volume Laterality Urine, First 12/28/2016 3:50 PM Voided CDT Hilario Keenan LAB URINE ORDERABLES Performing Organization Address City/State/ZIP Code Phon e Number POWERCHART POWERCHART NA documented in 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 Visit Diagnoses Not on filedocumented in 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 Additional Health Concerns Assessment Noted Time PHQ-9 Depression Total Score: 2 09/03/2016 10:31 AM CD T documented as of 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 Care Teams Welfare Manager Relationship Specialty Start Date End Date Carlos Vang M.D. PCP - General 10/08/16 01/04/18 documented as of 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
--- OUTSIDE RECORDS SUMMARY | 2021-12-10 15:35 | XMS_ITS | Encounter Summary ---
:1980 Author Organization [facility] Address [address] [place] [address] Care Team Providers Name Role Phone Carlos Nolan M.D. Primary Care Provider [phone] Reason for Visit Reason Comments Med Refill Encounter Details Date Type Department Care Team Description 09/03/2017 Refill Department of Internal Xochilt Mckeon, Med Refill Medicine in [place], NGHIA, C. N.P., HOUSE DETECTIVE-C [place] [address] 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 PCP - General 10/08/16 01/04/18 documented as of 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
--- OUTSIDE RECORDS SUMMARY | 2021-12-10 15:35 | XMS_ITS | Encounter Summary ---
:1980 Author Organization [facility] Address [address] [place] [address] Care Team Providers Name Role Phone Carlos Nolan M.D. Primary Care Provider [phone] Encounter Details Date Type Department Care Team Description 12/30/2016 Hospital Encounter [facility] Lesley Rodriguez i, M.D. 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 0 07/16/2014 IBUPROFEN ORAL ibuprofen 0 07/16/2014 MULTIVITAMIN WITH Take 1 capsule by 0 12/23/2012 MINERALS ORAL mouth daily. nortriptyline Take 1 capsule by 0 12/30/201603/27 (for_PAMELOR) 10 mg mouth daily. capsule documented as of 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 Progress Notes Dio Dickson M.D. - 12/30/2016 9:48 AM CDT [id number] CHIEF COMPLAINT/REASON FOR VISIT Presenting for abdominal discomfort and cramping. HISTORY OF PRESENT ILLNESS Denice is a 36-year-old lady who presents for the above reason. She reports that this has been going on for a few days now, around 4 to 5 days. She reports a lot of pain after urination. The pain canlast anywhere from few minutes to several hours, associated with deep vaginal itching. She has been also experiencing some urinary frequency and has not been going to work because of the discomfort. Today, she was not having any pain during the visit; however, she reports that the pain would start randomly with urination. The patient reports that she has been waking up around 2 times per night to go to the bathroom, and reports every time she wakes up she would have this pain that she will not be able to go back to sleep. Has not seen any blood in the urine. Denies any pain with urination. Most of the pain is after she urinates. Denies any changes in bowel movements. She is sexually active. Not concerned about sexually transmitted infection. She denies any pain with intercourse. Denies any fever or chills. She was evaluated in Urgent Care for those symptoms and she did have a urine which was within normal limits. She had a vaginitis panel which was negative; however, due to the itching she was empirically given a treatment with Diflucan and she has tried that without relief of her symptoms. I did review the urinalysis. The urine what seems to be clear. There were some ketones in the urine.However that urine was described as colorless with very low specific gravity. The patient currently rates her pain at 0; however, she reports that the pain can get up to 8 out of 10. PAST MEDICAL/SURGICAL HISTORY PAST MEDICAL HISTORY: Reviewed. Notable for history of ADHD, anxiety, chronic headaches; she is on nortriptyline for that. History of chest pains, abdominal pain, pelvic pain. PAST SURGICAL HISTORY: Notable for hysterectomy with bilateral salpingectomy, appendectomy, and endometrial ablation. PHYSICAL EXAMINATION GENERAL: The patient is no acute distress. Appears to be comfortable. PSYCHIATRIC: Patient is conscious, oriented, cooperative, has appropriate affect. NEUROLOGIC: Patient has grossly intact cranial nerves. No lateralizing signs. HEAD AND NECK: Head is normocephalic, atraumatic. Neck was supple, no masses. ABDOMEN: Soft, nontender. No guarding. No rebound. No evidence of any organomegaly. No evidence any hernias. PELVIC: External genitalia within normal limits. Bartholin's and Atka's glands are normal. Speculumwas inserted. The vaginal canal was inspected. Appeared to be normal. There is no abnormal discharge. No bleeding. Bimanual exam reveals no masses in the pelvis. Only positive findings on the pelvic exam was tenderness to palpation of the suprapubic area. IMPRESSION/REPORT/PLAN I did discuss the findings with the patient. At this point, due to tenderness of palpation of the bladder, we talked about giving her an empirical treatment for urinary tract infection. Advised the patient to just cut back on her fluid intake as the urine concentration was very low and then we talked about giving her Pyridium. However, the patient reports that she has tried that and that did not help. Does not seem to be interested in doing that. We talked about use of Motrin and Tylenol to manage her pain, and I did advise her that if she does not get better over the next few days that we can proceed with Urology consult. Patient was in agreement with the plan. PLAN: 1. Start Macrobid 1 tablet 2 times a day for 7 days. 2. If things do not get better, then we will proceed with Urology consult. Total time spent with the patient 25 minutes, 20 minutes were spent in counseling. Please note that her medications were reviewed and her Cymbalta was stopped by a neurologist in [place] and she was started on nortriptyline. She is taking that 10 mg every night for headache prevention and this seems to have been working well for her. Dio Dickson M.D./suly Electronically Signed By: DIO DICKSON MD On: 01/13/2017 08:47 AM Source: [facility] MHSDOLBEYNONRADSYS Document Id: [id number] documented in 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 Plan of Treatment Not on filedocumented as of 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 Visit Diagnoses Not on filedocumented in 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 Additional Health Concerns Assessment Noted Time PHQ-9 Depression Total Score: 2 09/03/2016 10:31 AM CD T documented as of 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 Care Teams Creasing Machine Operator Relationship Specialty Start Date End Date Carlos Nolan M.D. PCP - General 10/08/16 01/04/18 documented as of 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
--- OUTSIDE RECORDS SUMMARY | 2021-12-10 15:35 | XMS_ITS | Encounter Summary ---
:1980 Author Organization [facility] Address [address] [place] [address] Care Team Providers Name Role Phone Carlos Nolan M.D. Primary Care Provider [phone] Reason for Visit Reason Comments Other WANTS LETTER FOR [facility] Medication Problem Appointment Request (Routine) - Closed Specialty Diagnoses / Procedures Referred By Contact Refer red To Contact Family Medicine Referral ID Status Reason Start Date Expiration Date Visits Requ ested Visits Authorized [id number] Closed 06/15/2017 12/12/2017 1 1 Encounter Details Date Type Department Care Team Description 07/15/2017 Office Visit Department of Family Carlos Nolan (Primary Dx); Medicine, Racquel Peña M.D. 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 - 07/15/2017 2:45 PM CDT Chief Complaints: 1. Headache 2. Anxiety Generalized Disorder 3. Urticaria Idiopathic History of Present Illness Denice Arcos is a 37 y.o. female who comes in today regarding her abovementioned issues. She informs that she had been using Cymbalta was sometime. This has now stopped being effective. Instead she has been getting some side effects. She is to discuss some possible medication options to treat her chronic daily headaches. She informs that her anxiety has been well controlled. She has not taken Cymbalta for quite some time. She also continues to bothered by urticaria. In the past she has had benefit from hydroxyzine which she currently uses only as needed now. She declines any symptoms of nausea, vomiting, chest pain or shortness of breath. Past Medical History Patient Active Problem List Diagnosis ??? Depressive Disorder ??? Attention Deficit With Hyperactivity Disorder ??? Anxiety Generalized Disorder ??? Hypertension Diastolic ??? Headache ??? Urticaria Idiopathic Past Surgical History Past Surgical History: Procedure Laterality Date ??? APPENDECTOMY N/A Appendectomy ??? BILATERAL COMPLETE SALPINGECTOMY N/A 07/12/2014 Bilateral salpingectomy ??? BILATERAL TUBAL LIGATION N/A Bilateral tubal ligation ??? SECTION N/A section ??? ENDOMETRIAL ABLATION N/A Endometrial ablation ??? LAPAROSCOPIC TOTAL HYSTERECTOMY N/A 07/12/2014 Total laparoscopic hysterectomy Family History Family History Problem Relation Age of Onset ??? Migraines Mother ??? Ulcerative colitis Mother 50 colonectomy with j-pouch ??? Alzheimer's disease Grandfather ??? Breast cancer Grandmother 45 ??? Hypertension Father ??? Depression Sister ??? Migraines Brother Social History Social History Social History ??? Marital status: Spouse name: N/A ??? Number of children: N/A ??? Years of education: N/A Occupational History ??? Not on file. Social History Main Topics ??? Smoking status: Never Smoker ??? Smokeless tobacco: Never Used ??? Alcohol use Yes Comment: OCC ??? Drug use: Unknown ??? Sexual activity: Not on file Other Topics Concern ??? Not on file Social History Narrative ??? No narrative on file Current Medications Current Outpatient Prescriptions Medication Sig Dispense Refill ??? ACETAMINOPHEN ORAL Take by mouth. ??? IBUPROFEN ORAL ibuprofen ??? MULTIVITAMIN WITH MINERALS ORAL Take 1 capsule by mouth daily. ??? zolpidem (for_AMBIEN) 5 mg tablet TAKE 1 TABLET BY MOUTH DAILY AT BEDTIME NEEDED FOR SLEEP 30tablet 0 ??? propranolol (for_INDERAL) 20 mg tablet Take 1 tablet (20 mg total) by mouth 2 (two) times a day.60 tablet 2 No current facility-administered medications for this visit. Allergies Allergies Allergen Reactions ??? Toradol [Ketorolac] Itching ??? Tramadol GI intolerance Review of Systems: Per HPI, otherwise negative. Physical Examination: Vitals: BP 116/68 Pulse 72 Temp 36.2 ??C (Core) Wt 62.6 kg ? No BMI 22.31 kg/m?? GENERAL: In no apparent distress, comfortable and cooperative. EYES: JASMINA, EOMI, no conjunctival injection. ENT: Normal tympanic membrane, normal light reflex, bony landmarks visible. External nares normal and patent with no erythema or discharge. Oropharynx appears normal with no lesions. NECK: Supple with no lymphadenopathy. There is no apparent thyroid enlargement or masses. CARDIOVASCULAR: Heart sounds are normal S1, S2, no S3 or S4. Regular rate and rhythm, no murmurs or rubs. RESPIRATORY: Clear to auscultation, no wheezes. Air entry is equal bilaterally. ABDOMEN: Generally normal to inspection, palpation, percussion, and auscultation. There is no apparent hepatosplenomegaly. MUSCULOSKELETAL: No digital clubbing, cyanosis or edema. Full range of motion at all joints. NEUROLOGICAL: Alert and oriented x3. Cranial nerves II-XII grossly normal. Normal symmetrical reflexes, tone, power, and sensation. VASCULAR: Peripheral pulses generally normal and symmetrical. No peripheral cyanosis or edema. SKIN: Normal with no acute lesions. PSYCH: Mental status appears normal. LAB WORK: Lab Results Component Value Date CHOL 156 09/29/2012 Lab Results Component Value Date HDL 72 09/29/2012 Lab Results Component Value Date LDLCALC 70.6 09/29/2012 Lab Results Component Value Date TRIG 69 09/29/2012 Lab Results Component Value Date CREATININE 0.71 07/23/2016 BUN 13 07/23/2016 NA 139 07/23/2016 K 4.1 07/23/2016 CL 100 07/23/2016 CO2 27 07/23/2016 Assessment/Plan #1 Headache Med management options were discussed with her. She has tried multiple medications in the past and also has had occipital nerve block. Possible benefit of using propranolol twice a day was discussed with her. Possible side effects of the medications were discussed. Follow-up in a month or 2 from now. #2 Anxiety Generalized Disorder She currently prefers not to be on medication. No changes made.She will let me know if she does needfurther assistance. #3 Urticaria Idiopathic Hydroxyzine to be used on a daily basis has been recommended. She does have some medications remaining. She will give that a try. She will let me know if she does need further assistance. documented in 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 Plan of Treatment Not on filedocumented as of 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 Visit Diagnoses Diagnosis Headache Unspecified - Primary Anxiety Generalized Disorder Urticaria Idiopathic documented in 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 Additional Health Concerns Assessment Noted Time PHQ-9 Depression Total Score: 1 05/14/2017 7:51 AM DIRECTOR PUBLIC SERVICE documented as of 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 Care Teams Insulation Worker Furnace Installer Relationship Specialty Start Date End Date Carlos Nolan M.D. PCP - General 10/08/16 01/04/18 documented as of 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
--- OUTSIDE RECORDS SUMMARY | 2021-12-10 15:35 | XMS_ITS | Encounter Summary ---
:1980 Author Organization [facility] Address [address] [place] [address] Care Team Providers Name Role Phone Carlos Nolan M.D. Primary Care Provider [phone] Encounter Details Date Type Department Care Team Description 10/09/2016 Hospital Encounter [facility] Carlos Nolan M.D. 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 0 07/16/2014 IBUPROFEN ORAL ibuprofen 0 07/16/2014 MULTIVITAMIN WITH MINERALS Take 1 capsule by 0 ORAL mouth daily. documented as of 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 Plan of Treatment Not on filedocumented as of 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 Visit Diagnoses Not on filedocumented in 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 Additional Health Concerns Assessment Noted Time PHQ-9 Depression Total Score: 2 09/03/2016 10:31 AM CD T documented as of 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 Care Teams Surface Lay Out Technician Relationship Specialty Start Date End Date Carlos Nolan M.D. PCP - General 10/08/16 01/04/18 documented as of 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
--- OUTSIDE RECORDS SUMMARY | 2021-12-10 15:35 | XMS_ITS | Encounter Summary ---
:1980 Author Organization [facility] Address [address] [place] [address] Care Team Providers Name Role Phone Chelsea Ferrer APRN, C.N.P., D.N.P. Primary Care Provide r Encounter Details Date Type Department Care Team Description 05/01/2021 Orders Only [facility] Chelsea Ferrer, Sc reening Mammogram Breast Cancer; MNT NGHIA, C.N.P., D. N.P. 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 PCP - General 9/12/18 [address] [place] [phone] documented as of 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
--- OUTSIDE RECORDS SUMMARY | 2021-12-10 15:35 | XMS_ITS | Encounter Summary ---
:[address] [facility] Address [address] [place] [address] Care Team Providers Name Role Phone Chelsea Ferrer APRN, C.N.P., D.N.P. Primary Care Provide r Reason for Referral Outpatient (Routine) - Authorized Specialty Diagnoses / Procedures Referred By Contact Refer red To Contact General Internal Diagnoses Post COVID-19 Condition Alex Perez, [facility] [place] [address] Referral ID Status Reason Start Date Expiration Date Visits V isits Requested Authorized [id number] Authorized 09/04/2021 09/04/2022 1 1 Encounter Details Date Type Department Care Team Description 09/03/2021 [facility] Alex Perez ost COVID-19 AND BENTON Saez M.D. 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 documented as of 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 Plan of Treatment Scheduled Referrals Name Type Priority Associated Diagnoses Order [facility] Internal Outpatient Referral Routine Post COVID-19 Exp ected: Medicine Referral Condition 09/04/2021 (Approximate), Expires: 12/05/2022 documented as of 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 Visit Diagnoses Diagnosis Post COVID- Condition - Primary documented in 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 Additional Health Concerns Assessment Noted Time PHQ-9 Depression Total Score: 1 05/14/2017 7:51 AM INSTRUMENTATION ENGINEER documented as of 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 Care Teams Behavior Interventionist Relationship Specialty Start Date End Date Chelsea Ferrer, NGHIA, C.N.P., D.N.P. PCP - General 01/05/18 [address] [place] [phone] documented as of 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
--- OUTSIDE RECORDS SUMMARY | 2021-12-10 15:35 | XMS_ITS | Encounter Summary ---
:1980 Author Organization [facility] Address [address] [place] [address] Care Team Providers Name Role Phone Chelsea Ferrer APRN, C.N.P., D.N.P. Primary Care Provide r Encounter Details Date Type Department Care Team Description 05/23/2019 Orders Only [facility] MNT Chelsea Ferrer , Screening Lipid NGHIA, C.N.P., D. N.P. [address] [place] [phone] (Wo rk) Social History Tobacco Use Types [...] at Date Recorded Female 04/15/2017 7:38 PM ANSWERER documented as of 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 Plan of Treatment Scheduled Orders Name Type Priority Associated Diagnoses Order S chedule Lipid Panel Lab Routine Screening Lipid Expected: , Expires: 05/23/2022 documented as of 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 Visit Diagnoses Diagnosis Screening Lipid documented in 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 Additional Health Concerns Assessment Noted Time PHQ-9 Depression Total Score: 1 05/14/2017 7:51 AM ANSWERER documented as of 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 Care Teams Vice President Of Procurement Relationship Specialty Start Date End Date Chelsea Ferrer, NGHIA, C.N.P., D.N.P. PCP - General 01/05/18 [address] [place] [phone] documented as of 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
--- OUTSIDE RECORDS SUMMARY | 2021-12-10 15:35 | XMS_ITS | Encounter Summary ---
:1980 Author Organization [facility] Address [address] [place] [address] Care Team Providers Name Role Phone Chelsea Ferrer APRN, C.N.P., D.N.P. Primary Care Provide r Encounter Details Date Type Department Care Team Description 08/26/[address] [facility] Alex Perez ost COVID-19 AND BENTON Saez M.D. Condition (Primary [address] [facility] [address]) [place] [address] [place], [place] [phone] Social History Tobacco Use Types Packs/Day Years Used Date Smoking Tobacco: Never Smokeless Tobacco: Never Alcohol Use Standard Drinks/Week Comments Yes 0 (1 standard drink = 0.6 oz pure alcoho l) [facility] Alcohol Habits Answer Date Recorded How often do you have a drink containing alcohol? Not asked How many drinks containing alcohol do you have on a typical Not asked day when you are drinking? How often do you have six or more drinks on one occasion? 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 PCP - General 01/05/18 [address] [place] [phone] documented as of 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
--- OUTSIDE RECORDS SUMMARY | 2021-12-10 15:35 | XMS_ITS | Encounter Summary ---
:[address] [facility] Address [address] [place] [address] Care Team Providers Name Role Phone NabilBunnyChelseakaveh Hewitt APRN, C.N.P., D.N.P. 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 Request: I have medical symptoms without a clear diagnosis MAIN SYMPTOM Leg pain Description: Leg pain since michelle COVID in February of 2021. It is intermittent, moderate to severe, and worse after exercise or being active at work. Duration: Less than 6 months Previous Eval: Yes Institution: [facility] Have had: Blood or urine tests Diagnosis: Post-COVID syndrome Outcome: No outcome Expectations: Help manage symptoms ADDITIONAL - 1 Muscle twitching Description: Intermittent muscle twitching in bilateral legs Duration: Less than 6 months Previous Eval: Yes Institution: [facility] Have had: Blood or urine tests Diagnosis: Post-COVID syndrome Outcome: None Expectations: Help manage symptoms ADDITIONAL - 2 Elevated heart rate and blood pressure Description: Intermittent elevations of hr and bp Duration: Less than 6 months Previous Eval: Yes Institution: [facility] Have had: Blood or urine tests Diagnosis: Post-COVID syndrome Outcome: none Expectations: Manage symptoms ADDITIONAL - 3 Description: Duration: Previous Eval: Institution: Have had: Diagnosis: Outcome: Expectations: ADDITIONAL - 4 Description: Duration: Previous Eval: Institution: Have had: Diagnosis: Outcome: Expectations: ADDITIONAL CONCERNS: ? LIFESTYLE MEDICINE CONSULTATION: Yes? CONDITIONS: Anxiety, Pain BOTHERED BY: Feeling nervous, anxious or on edge - Several days Not being able to control or stop worrying - Several days Little interest or pleasure in doing things - Not at all Feeling down, depressed, or helpless - Not at all Willing to speak to a mental health professional - PAIN LONGER THAN 3 MONTHS: Yes CARE PROVIDERS TO DATE: 1 LOWEST PAIN LAST 7 DAYS (0 to 10): 3 PAIN INTERFERENCE PAST 3 MONTHS (0 to 10): 8 PAIN AREAS: Right HIP, Right Upper LEG, Right KNEE, Right Lower LEG, Left HIP, Left Upper LEG, Left KNEE, Left Lower LEG FATIGUE A MAIN REASON FOR VISIT: FATIGUE/HOW LONG: PROBLEMS WITH SLEEP: SLEEP PROBLEMS LAST 2 WEEKS: SLEEP APNEA DIAGNOSIS: Willing to attend FC or [facility] appointments - Definitely yes DAILY MEDS: 3 OPIOIDS: Yes CURRENT DIALYSIS: No CURRENT HEALTH/PAST YEAR: Good CONFIDENCE: Agree NOT AVAILABLE: I AM AVAILABLE ANY TIME PHONE: [phone] documented in 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 Plan of Treatment Not on filedocumented as of 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 Visit Diagnoses Not on filedocumented in 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 Additional Health Concerns Assessment Noted Time PHQ-9 Depression Total Score: 1 05/14/2017 7:51 AM CHAIRMAN documented as of 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 Care Teams Bus Attendant Relationship Specialty Start Date End Date Chelsea Ferrer APRN, C.N.P., D.N.P. PCP - General 01/05/18 [address] [place] [place] [phone] documented as of 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
--- OUTSIDE RECORDS SUMMARY | 2021-12-10 15:35 | XMS_ITS | Encounter Summary ---
:1980 Author Organization [facility] Address [address] [place] [address] Care Team Providers Name Role Phone Carlos Nolan M.D. Primary Care Provider [phone] Encounter Details Date Type Department Care Team Description 08/20/2017 Orders Only Department of Family Carlos Nolan, Medicine, [place] M.D. 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 PCP - General 10/08/16 01/04/18 documented as of 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
--- OUTSIDE RECORDS SUMMARY | 2021-12-10 15:35 | XMS_ITS | Encounter Summary ---
:1980 Author Organization [facility] Address [address] [place] [address] Care Team Providers Name Role Phone Carlos Nolan M.D. Primary Care Provider [phone] Encounter Details Date Type Department Care Team Description 04/03/2017 Abstract Department of Family Medicine, Provider, 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 PCP - General 10/08/16 01/04/18 documented as of 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
--- OUTSIDE RECORDS SUMMARY | 2021-12-10 15:35 | XMS_ITS | Encounter Summary ---
:1980 Author Organization [facility] Address [address] [place] [address] Care Team Providers Name Role Phone Carlos Nolan M.D. Primary Care Provider [phone] Reason for Visit Reason Onset Date Comments Medication Problem 05/26/2017 Encounter Details Date Type Department Care Team Description 05/26/[address] Nolan Family Medicine, Carlos Peña M.D. 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 OMER SALES DISTRIBUTOR Telephone Encounter - Carlos Nolan M.D. - 05/31/2017 12:48 PM CUSTOMER SALES DISTRIBUTOR Sent. Thanks OMER SALES DISTRIBUTOR Telephone Encounter - Charity Townsend R.N. - 05/31/2017 11:39 AM CST Spoke with patient, she states the pharmacist at [facility] recommended ordering the butalbital-acetaminophen 50-325 mg because they have had better luck with insurance companies covering the 325 mg versus the 300 mg. Please advise. OMER SALES DISTRIBUTOR Telephone Encounter - Carlos Nolan M.D. - 05/31/2017 11:28 AM CUSTOMER SALES DISTRIBUTOR We can try Imitrex or something similar. . Please see if she agrees with it. Thanks OMER SALES DISTRIBUTOR Telephone Encounter - Magda Loja - 05/26/2017 8:04 AM CST Patient was prescribed Rx for headaches back on 05/14/17 and Rx sent to [facility] although was out ofstock. When back in stock insurance was ran and cost came out to about $400. Patient wonders if provider would be able to prescribe something different that would be approved by insurance. Please call patient to discuss. Thank you. OMER SALES DISTRIBUTOR documented in 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 Plan of Treatment Not on filedocumented as of 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 Visit Diagnoses Not on filedocumented in 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 Additional Health Concerns Assessment Noted Time PHQ-9 Depression Total Score: 1 05/14/2017 7:51 AM CUSTOMER SALES DISTRIBUTOR documented as of 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 Care Teams Polymer Chemist Relationship Specialty Start Date End Date Carlos Nolan M.D. PCP - General 10/08/16 01/04/18 documented as of 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
--- OUTSIDE RECORDS SUMMARY | 2021-12-10 15:35 | XMS_ITS | Encounter Summary ---
:[address] [facility] Address [address] [place] [address] Care Team Providers Name Role Phone Carlos Nolan M.D. Primary Care Provider [phone] Reason for Visit Reason Comments Follow-up MEds Encounter Details Date Type Department Care Team Description 05/14/2017 Office Visit Department of Family Jesse Christy, PRECISION MECHANICAL INSTRUMENT MAKER, C.N.P. [address] [place] [address] Headache Chronic (Primary Dx); Medicine, [place] Carlos Nolan M.D. 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 documented as of 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 Last Filed Vital Signs Vital Sign Reading Time Taken Comments Blood Pressure 120/64 05/14/2017 7:29 AM INDIVIDUALIZED EDUCATION PLAN AIDE Pulse 68 05/14/2017 7:29 AM INDIVIDUALIZED EDUCATION PLAN AIDE Temperature 36.7 ??C (98.1 ??F) 05/14/2017 7:29 AM INDIVIDUALIZED EDUCATION PLAN AIDE Respiratory Rate - - Oxygen Saturation - - Inhaled Oxygen Concentration - - Weight 62.8 kg (138 lb 7.2 oz) 05/14/2017 7:29 AM INDIVIDUALIZED EDUCATION PLAN AIDE Height - - Body Mass Index 22.38 03/01/2017 2:02 PM INDIVIDUALIZED EDUCATION PLAN AIDE documented in 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 Progress Notes Carlos Nolan M.D. - 05/14/2017 7:30 AM CST Chief Complaints: 1. Headache Chronic 2. Insomnia Disorder 3. Attention Deficit With Hyperactivity Disorder 4. Anxiety Generalized Disorder History of Present Illness Denice Arcos is a 36 y.o. female who comes in today regarding her abovementioned issues. She comes in today as a follow-up. She informs that she has noticed significant benefit in terms of her headache as well as anxiety from Cymbalta. She declines any side effects from the medication. Maralso continues to use Ambien as needed for insomnia and this has been helping her well. Stressors have gotten better. She does have a history of anxiety issues from the past but believes he probably will not be needing any medications for now. She is also now off of her Adderall for her ADHD now that she is done with her school. She declines any symptoms of nausea, vomiting, chest pain or shortness of breath. Past Medical History Patient Active Problem List Diagnosis ??? Depressive Disorder ??? Attention Deficit With Hyperactivity Disorder ??? Anxiety Generalized Disorder Past Surgical History Past Surgical History: Procedure [...] tobacco: Never Used ??? Alcohol use Yes ??? Drug use: Unknown ??? Sexual activity: Not on file Other Topics Concern ??? Not on file Social History Narrative ??? No narrative on file Current Medications Current Outpatient Prescriptions Medication Sig Dispense Refill ??? ACETAMINOPHEN ORAL Take by mouth. ??? DULoxetine (for_CYMBALTA) [address] capsule Take 1 capsule (30 mg total) by mouth 2 (two) times aday. 180 capsule 1 ??? IBUPROFEN ORAL ibuprofen ??? MULTIVITAMIN WITH MINERALS ORAL Take 1 capsule by mouth daily. ??? zolpidem (for_AMBIEN) 5 mg tablet Take 1 tablet (5 mg total) by mouth at bedtime as needed for sleep. 30 tablet 0 ??? butalbital-acetaminophen 50-300 mg tablet Take 1 tablet by mouth 3 (three) times a day as needed(headache). 30 tablet 0 No current facility-administered medications for this visit. Allergies Allergies Allergen Reactions ??? Toradol [Ketorolac] Itching ??? Tramadol GI intolerance Review of Systems: Per HPI, otherwise negative. Physical Examination: Vitals: BP 120/64 Pulse 68 Temp 36.7 ??C Wt 62.8 kg ? No BMI 22.79 kg/m?? MENTAL STATUS: Patient is of average build, well-groomed and appears appropriate for stated age. No unusual movements or psychomotor changes noted. Makes appropriate eye contact. Very cooperative. Patient does not appear agitated, anxious, or depressed. Has normal speech with normal rate, tone, and volume without pressure. Affect reactive and mood congruent. No problems with expressive as well as receptive language. Thought processes goal directed and logical. No loose association or flight of ideasnoted. No suicidal or homicidal ideation, intent, or plan. No hallucinations or delusions during theinterview. Oriented to time, place and person. Short-term and long-term memory intact. Good insight and judgment. Assessment/Plan #1 Headache Chronic She continues to do well on Cymbalta. This has been continued. Refills provided. I have also provided her with some Fioricet to be used only as needed. #2 Insomnia Disorder Continue on Ambien as needed. Refills provided. #3 Attention Deficit With Hyperactivity Disorder Adderall has now been discontinued. She will let us know if she does need further assistance. #4 Anxiety Generalized Disorder Currently well controlled. No changes made. Continue on Cymbalta. VIDUALIZED EDUCATION PLAN AIDE documented in 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 Plan of Treatment Not on filedocumented as of 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 Visit Diagnoses Diagnosis Headache Chronic - Primary Insomnia Disorder Attention Deficit With Hyperactivity Dis order Anxiety Generalized Disorder documented in 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 Additional Health Concerns Assessment Noted Time PHQ-9 Depression Total Score: 1 05/14/2017 7:51 AM INDIVIDUALIZED EDUCATION PLAN AIDE documented as of 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 Care Teams Dean Of Boys Relationship Specialty Start Date End Date Carlos Nolan M.D. PCP - General 10/08/16 01/04/18 documented as of 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
--- OUTSIDE RECORDS SUMMARY | 2021-12-10 15:35 | XMS_ITS | Encounter Summary ---
:1980 Author Organization [facility] Address [address] [place] [address] Care Team Providers Name Role Phone Chelsea Ferrer APRN, C.N.P., D.N.P. 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 PCP - General 01/05/18 [address] [facility] [place] [address] documented as of 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
--- OUTSIDE RECORDS SUMMARY | 2021-12-10 15:35 | XMS_ITS | Encounter Summary ---
:1980 Author Organization [facility] Address [address] [place] [address] Care Team Providers Name Role Phone Chelsea Ferrer APRN, C.N.P., D.N.P. Primary Care Provide r Encounter Details Date Type Department Care Team Description 07/30/2020 Orders Only [facility] Chelsea Ferrer , Screening Lipid NGHIA C.N.P., D. N.P. 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 PCP - General 01/05/18 [address] [phone] documented as of 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
--- OUTSIDE RECORDS SUMMARY | 2021-12-10 15:35 | XMS_ITS | Encounter Summary ---
:1980 Author Organization [facility] Address [address] [place] [address] Care Team Providers Name Role Phone Carlos Nolan M.D. Primary Care Provider [phone] Encounter Details Date Type Department Care Team Description 12/23/2016 Hospital Encounter HX [facility] Adelaida Kerr, NGHIA, C.N.P., D.N.P. 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 PCP - General 10/08/16 01/04/18 documented as of 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
--- OUTSIDE RECORDS SUMMARY | 2021-12-10 15:35 | XMS_ITS | Encounter Summary ---
:1980 Author Organization [facility] Address [address] [place] [address] Care Team Providers Name Role Phone Unavailable Primary Care Provider Unavailable Encounter Details Date Type Department Care Team Description 10/05/2016 Hospital Encounter HX [facility] Carlos Nolan M.D. 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
--- OUTSIDE RECORDS SUMMARY | 2021-12-10 15:35 | XMS_ITS | Encounter Summary ---
:1980 Author Organization [facility] Address [address] [place] [address] Care Team Providers Name Role Phone Carlos Nolan M.D. Primary Care Provider [phone] Reason for Visit Reason Comments Med Refill Encounter Details Date Type Department Care Team Description 10/18/2017 Refill Department of Family Medicine, Carlos Agudelo M.D. Med Refill [facility], in [address] [address] [address] [facility] [place] [address] [phone] Social History Tobacco Use Types Packs/Day Years [...] at Date Recorded Female 04/15/2017 7:38 PM INVENTORY COORDINATOR documented as of 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 Plan of Treatment Not on filedocumented as of 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 Visit Diagnoses Not on filedocumented in 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 Additional Health Concerns Assessment Noted Time PHQ-9 Depression Total Score: 1 05/14/2017 7:51 AM INVENTORY COORDINATOR documented as of 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 Care Teams Digital Marketing Analyst Relationship Specialty Start Date End Date Carlos Nolan M.D. PCP - General 10/08/16 01/04/18 documented as of 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
--- OUTSIDE RECORDS SUMMARY | 2021-12-10 15:35 | XMS_ITS | Encounter Summary ---
:1980 Author Organization [facility] Address [address] [place] [address] Care Team Providers Name Role Phone Unavailable Primary Care Provider Unavailable Encounter Details Date Type Department Care Team Description 09/03/2016 Hospital Encounter HX [facility] Carlos Vang M.D. 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 0 07/16/2014 IBUPROFEN ORAL ibuprofen 0 07/16/2014 MULTIVITAMIN WITH MINERALS Take 1 capsule by 0 ORAL mouth daily. documented as of 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 Progress Notes Carlos Vang M.D. - 09/03/2016 9:15 AM CDT [id number] CHIEF COMPLAINT/REASON FOR VISIT 1. 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 2. Right lower quadrant abdominal pain. HISTORY OF PRESENT ILLNESS Jeannine comes in today with a request to obtain a few letters explaining to [employer] about herallergies, as well as her right lower quadrant abdominal pain. Jeannine informs me that back in 2010, while she was exercising and wearing a wool hat, she started noticing some hives in her forehead initially which subsequently became generalized to her entire body. Recently over the last week, she says that she did wear a wool sweater and she started noticing similar hives again. Jeannine would like to request a note informing the employer regarding the wool allergy and a suggestion regarding avoiding wool exposure. Jeannine also informs me that she continues to be bothered by her right lower quadrant abdominal pain. I had seen her back in 06/22/2016. Subsequent CT scan of the abdomen and pelvis on 07/27/2016, wasnoted to be normal. Jeannine informs me that if she does do some heavy lifting, she notices the paincome back again. We had discussed about possibility of developing hernia in <__IM_1: blank__>si tuations. Jeannine comes in today to request some weight restrictions, especially since she will be involved in some mobile medical unit placement within the next few weeks. She otherwise enjoys good health. IMPRESSION/REPORT/PLAN Management options including further workup regarding her possible allergy was discussed. An option of sending her to an regrind mill operator to confirm wool allergy was also mentioned. We have currently avoided that plan and currently, I did provide her with a letter mentioning the possibility of wool allergy and recommended that she avoid any exposure to wool. Weight limit of 10 pounds has also been recommended for now. If she does have some symptoms that areworsening in terms of abdominal pain or hernia, I have recommended that she let us know. She agrees with the plan. Follow up as needed. Total time spent, 15 minutes, all of which was [id number] time. Vinod Orr/suly Electronically Signed By: CARLOS VANG MD On: 09/07/2016 07:30 PM Source: [facility] MHSDOLBEYNONRADSYS Document Id: [id number] documented in 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 Miscellaneous Notes Miscellaneous - Leti Sorensen L.PCinthiaNCinthia - 09/03/2016 10:31 AM CDT PHQ-9 PHQ-9 Entered On: 09/03/2016 10:31 CDT Performed On: 09/03/2016 10:31 CDT by LETI SORENSEN LPN PHQ-9 Little interest or pleasure in doing things : Not at all Feeling down, depressed, or hopeless : Not at all Trouble falling or staying asleep, or sleeping too much : Several days Feeling tired or having little energy : Not at all Poor appetite or overeating : Not at all Feeling bad about yourself or that you are a failure : Not at all Trouble concentrating on things : Several days Moving or speaking slowly; restless or fidgety : Not at all Thoughts that you would be better off /hurting self : Not at all PHQ-9 Calculated Score : 2 Problems make work, home, or dealing with others : Not difficult at all LETI SORENSEN LPN - 09/03/2016 10:31 CDT Source: [employer] Document Id: [id number] CDT!13 Miscellaneous - Carlos Vang M.D. - 09/03/2016 9:48 AM CDT Ambulatory Patient Summary [address] [id number] Visit Information Name: JEANNINE OWENS [facility] Number: [id number] Current Date: 09/03/2016 09:48:37 Physicians Attending Provider: CARLOS VANG MD Primary [...] lunch / (Adderal) please call pt for warp picker. Pt uses [employer]. DULoxetine (DULoxetine 40 mg oral delayed release capsule) 1 cap, Oral, once a day ibuprofen (ibuprofen) multivitamin with minerals (multivitamin with minerals Multiple Vitamins with Zinc oral capsule) 1 cap, Oral, once a day with magnesium Stop Taking the Following Medications: Medication list as of 09-03-16 09:48 Attention: If you have any medications at [...] Electronically Signed By: CARLOS VANG MD Signed On:03-SEP-2016 09:48:34 Your Allergies & Intolerances Substance Reaction Symptoms [...] if you dont have one. Go to [email or web address] and click on Create Your Account. Then, follow the directions to complete the online form. Youll be asked for your [facility] number which you can find at the top of this document. Your Goals/Additional instructions: Source: [facility] POWERCHART Document Id: [id number] Miscellaneous - Carlos Vang M.D. - 09/03/2016 9:48 AM CDT Ambulatory Discharge Medication List [address] [id number] Visit Information Name: JEANNINE OWENS [facility] Number: [id number] Current Date: 09/03/2016 09:48:36 Attending Provider: CARLOS VANG MD Primary Care [...] lunch / (Adderal) please call pt for warp picker. Pt uses [employer]. DULoxetine (DULoxetine 40 mg oral delayed release capsule) 1 cap, Oral, once a day ibuprofen (ibuprofen) multivitamin with minerals (multivitamin with minerals Multiple Vitamins with Zinc oral capsule) 1 cap, Oral, once a day with magnesium Stop Taking the Following Medications: Medication list as of 09-03-16 09:48 Attention: If you have any medications at [...] Electronically Signed By: CARLOS VANG MD Signed On:03-SEP-2016 09:48:34 Additional Information: Source: [facility] POWERCHART Document Id: [id number] Andree - Carlos Vang M.D. - 09/03/2016 9:45 AM CDT Work Excuse September 03, 2016 JEANNINE OWENS [address] [place] [id number] Dear JEANNINE ROMAN, You were examined in my office on: 09/03/2016 Reason for work excuse: Medical Illness ( _ ) Yes ( _ ) No Injury ( _ ) Yes ( _ ) No Is excused from all work: ( _ ) Yes ( _ ) No Has work limitations: ( _ ) Yes ( _ ) No As follows: _ Limitations apply until: _ Follow-Up Appointment : ( _ ) Return to Work date: _ Note; 1. It appears that Ms. Jeannine Owens has an allergy to wool / wool products based on her history of recurrent reactions upon exposure. It is recommended that she avoid wool or wool products. 2.Recommend a 10 lbs weight lifting restriction until December 2016. Sincerely, CARLOS VANG [address] [place] [address] Electronic Signature Electronically Signed By: CARLOS VANG MD On: September 03, 2016 This document has images extracted. Source: [facility] POWERCHART Document Id: [id number] Andree - Negin Bedoya L.P.N. - 09/03/2016 9:23 AM CDT Adult Multimedia Engineer Intake/History Adult Multimedia Engineer Intake/History Entered On: 09/03/2016 9:25 CDT Performed On: 09/03/2016 9:23 CDT by NEGIN BEDOYA LPN Intake Chief Complaint : Talk allergic reaction to Mold Temperature Core : 36.8 DegC(Converted to: 98.2 DegF) Peripheral Pulse Rate : 72 /min Systolic Blood Pressure : 124 mmHg Diastolic Blood Pressure : 82 mmHg NIBP Mean : 96 mmHg BP Location : Right upper extremity Blood Pressure Cuff Size : Regular Height : 166 cm(Converted to: 5 ft 5 inch(es), 65 inch(es)) Actual Weight : 61.9 kg(Converted to: 136 lb 7 oz) Weight Source : Standing scale Dosing Weight Clinic : 61.9 kg Clinic BSA : 1.69 Body Mass Index : 22.46 kg/m2 NEGIN BEDOYA LPN - 09/03/2016 9:23 CDT General Info Information Given By : Patient Languages : French Is Patient Female and 13-50 no hysterectomy : No NEGIN BEDOYA LPN - 09/03/2016 9:23 CDT Subjective Pain Symptoms : No NEGIN BEDOYA LPN - 09/03/2016 9:23 CDT Dependent Habits Exposure to Tobacco Smoke : Care provider denies smoking in home, Other: NEVER Smoking Status : Never smoker Tobacco 2A : No Tobacco Use/Currently Using : No Tobacco Use/Last 30 Days : No Tobacco Use/Last 12 months : No Alcohol Use : Yes NEGIN BEDOYA LPN - 09/03/2016 9:23 CDT Caffeine Use Grid Caffeine Use : Current Type : Soft drinks Frequency : Weekly Amount : 3 cans per week NEGIN BEDOYA LPN - 09/03/2016 9:23 CDT Recreational Drug Use Grid Drug Use : None NEGIN BEDOYA LPN - 09/03/2016 9:23 CDT [facility] Document Id: [id number] CDT!39 Miscellaneous - Negin Bedoya L.P.NCinthia - 09/03/2016 9:22 AM CDT Health Assessment Health Assessment Entered On: 09/03/2016 9:23 CDT Performed On: 09/03/2016 9:22 CDT by NEGIN BEDOYA LPN Health Assessment Complete Health Assessment Complete or Modified : Annual Health Assessment Annual Health Assessment Completed : Yes NEGIN BEDOYA LPN - 09/03/2016 9:22 CDT Nutrition Nutrition Risk Factors by History Adult : None NEGIN BEDOYA LPN - 09/03/2016 9:22 CDT Functional Current Daily Living Assistance : None NEGIN BEDOYA LPN 09/03/2016 9:22 CDT Dependent Habits Exposure to Tobacco Smoke : Care provider denies smoking in home, Other: NEVER Smoking Status : Never smoker Tobacco 2A : No Tobacco Use/Currently Using : No Tobacco Use/Last 30 Days : No Tobacco Use/Last 12 months : No Alcohol Use : Yes NEGIN BEDOYA LPN 09/03/2016 9:22 CDT Caffeine Use Grid Caffeine Use : Current Type : Soft drinks Frequency : Weekly Amount : 3 cans per week NEGIN BEDOYA LPN - 09/03/2016 9:22 CDT Recreational Drug Use Grid Drug Use : None NEGIN BEDOYA LPN 09/03/2016 9:22 CDT AUDIT Tool How Often Do You Have A Drink : Monthly or less How Many Drinks in a Day When Drinking : 1 or 2 Six or More Drinks On One Occassion : Never Audit Phase 1 Score : 1 NEGIN BEDOYA LPN 09/03/2016 9:22 CDT Psychosocial Domestic Abuse Concerns : None Behavioral Health Screen/Safety Assmt : No Buddhist Preference : NEGIN Andino LPN 09/03/2016 9:22 CDT Advance Directive Advanced Directives : No Advance Directive Additional Information : No NEGIN BEDOYA LPN 09/03/2016 9:22 CDT Educ Needs Learning Style Preference Adult Grid Patient : Demonstration, Printed materials, Verbal explanation, Video/Educational TV Family : None NEGIN BEDOYA LPN 09/03/2016 9:22 CDT Source: [facility] POWERCHART Document Id: [id number] CDT!41 documented in 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 Plan of Treatment Not on filedocumented as of 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 Visit Diagnoses Not on filedocumented in 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 Additional Health Concerns Assessment Noted Time PHQ-9 Depression Total Score: 2 09/03/2016 10:31 AM CD T documented as of 

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
--- OUTSIDE RECORDS SUMMARY | 2021-12-10 15:35 | XMS_ITS | Encounter Summary ---
:[address] [facility] Address [address] [place] [address] Care Team Providers Name Role Phone Carlos Nolan M.D. 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 documented in this encounter Results DERMATOLOGY IMAGE EXAM (02/25/2017 12:00 PM CDT) Specimen (Source) Anatomical Location Collection Method / Collectio n Time Received Time / Laterality Volume Narrative [facility] - 02/26/2017 11:18 AM CDT This order has been created and [...] documented as of this encounter Care Teams Military Nurse Relationship Specialty Start Date End Date Carlos Nolan M.D. PCP - General 10/08/16 01/04/18 documented as of this encounter
--- OUTSIDE RECORDS SUMMARY | 2021-12-10 15:35 | XMS_ITS | Encounter Summary ---
:1980 Author Organization [facility] Address [address] [place] [address] Care Team Providers Name Role Phone Carlos Nolan M.D. Primary Care Provider [phone] Reason for Visit Reason Comments Med Refill Appointment Request (Routine) - Closed Specialty Diagnoses / Procedures Referred By Contact Refer red To Contact Family Medicine Referral ID Status Reason Start Date Expiration Date Visits Requ ested Visits Authorized [id number] Closed 04/15/2017 10/12/2017 1 1 Encounter Details Date Type Department Care Team Description 04/16/2017 Office Visit Department of Family Sarah Christy Head ache Benign (Primary Dx); Medicine, Jarod Jesus, NGHIA, C. N.P. 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 encounter Last Filed Vital Signs Vital Sign Reading Time Taken Comments Blood Pressure 133/89 04/16/2017 10:07 AM SILVER SOLUTION MIXER Pulse 94 04/16/2017 10:07 AM SILVER SOLUTION MIXER Temperature 36.7 ??C (98.1 ??F) 04/16/2017 10:07 AM SILVER SOLUTION MIXER Respiratory Rate - - Oxygen Saturation 99% 04/16/2017 10:07 AM SILVER SOLUTION MIXER Inhaled Oxygen Concentration - - Weight 62.9 kg (138 lb 10.7 oz) 04/16/2017 10:07 AM SILVER SOLUTION MIXER Height - - Body Mass Index 22.42 03/01/2017 2:02 PM SILVER SOLUTION MIXER documented in this encounter Progress Notes Sarah Christy APRN, RCinthiaN. - 04/16/2017 10:30 AM CST CHIEF COMPLAINT Medication renewal HISTORY OF PRESENT ILLNESS Denice Arcos is a 36 y.o. female who presents for medication renewal. Patient is requesting to resume Cymbalta for management of chronic headaches. This has worked well for her in the past for headache management but has not taken this medication for a few years. She has also tried nortriptyline but had increased irritability and weight gain; therefore, she discontinued this medication. Has afew headaches a week currently. Does not feel is headaches or migraine is in nature. Feels headachesare more tension in nature and start in the occipital region and radiates around to the forehead. Denies associated aura, nausea, numbness, tingling, weakness, lack of coordination, disorientation, decreased level consciousness. Denies weight loss or night sweats. Patient is also currently dealing with increased anxiety as she is feeling very overwhelmed she has many things going on in her life. 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 She feels she typically handle stress well and takes care of herself by eating a nutritious diet and exercises on a regular basis; however, things are getting to her more than the typically do lately. Feels her sleep is greatly impaired by her anxiety. States she is sleeping no more than 4 hours a night. Trazodone has given her tachycardia in the past. Has not tried melatonin. Ambien has been beneficial in the past. Feels she has good sleep hygiene. PHQ-9 score is 4. As patient has difficulty with sleep and fatigue. She denies thoughts of harming herself or suicidal ideation. Cruz 7 score is 11. Patient feels nervous and on edge, worries excessively about different things, trouble relaxing, was restless, easily annoyed, and frequently fears something bad is going to happen. The following portions of the patient's history were reviewed and updated as appropriate: allergies,current medications, family history, medical history, social history, surgical history and problem list. REVIEW OF SYSTEMS General: See HPI. Neurological: See HPI. Psychological: See HPI. PHYSICAL EXAMINATION VITALS: Blood pressure 133/89, pulse 94, temperature 36.7 ??C, temperature source Tympanic, weight 62.9 kg, SpO2 99 %. GENERAL: No acute distress, alert and oriented x3, dressed appropriately, well groomed, speech is clear and appropriate. LUNGS: Respirations regular and nonlabored on room air. CARDIOVASCULAR: S1 and S2, regular rhythm. MUSCULOSKELETAL: Normal range of motion and strength on extension and flexion against resistance of upper and lower extremities. NEUROLOGICAL: Alert and oriented x3, no evidence of distorted thinking. Cranial nerves II-XII intact, motor function normal. PSYCHOLOGICAL: Appropriate affect, cooperative, and makes good eye contact. PHQ- 9 score is 4. Cruz 7 score is 11. ASSESSMENT/PLAN 1. Headache Benign Prescribed Cymbalta 30 mg twice daily for chronic headaches. 2. Anxiety Prescribed Cymbalta 30 mg twice daily. Also prescribed Vistaril 25 mg up to 4 times a day to be usedfor acute anxiety and may try to prior to bedtime promote sleep. Also encouraged stress management and relaxation. 3. Insomnia Recommend patient take melatonin 5-15 mg nightly to promote sleep. Also discussed good sleep hygiene. Prescribed Ambien 5 mg to be used as needed if melatonin not beneficial. Explained that this medication is a controlled substance and should be used sparingly. Patient is going to follow up with myself or Dr. Nolan in 1 month for medication recheck. Patient is happy and receptive to this plan. ER SOLUTION MIXER documented in this encounter Plan of Treatment Not on filedocumented as of this encounter Visit Diagnoses Diagnosis Headache Benign - Primary Anxiety Insomnia documented in this encounter Additional Health Concerns Assessment Noted Time PHQ-9 Depression Total Score: 4 04/16/2017 10:40 AM CS T documented as of this encounter Care Teams Pediatric Cns Relationship Specialty Start Date End Date Carlos Nolan M.D. PCP - General 10/08/16 01/04/18 documented as of this encounter
--- OUTSIDE RECORDS SUMMARY | 2021-12-10 15:35 | XMS_ITS | Encounter Summary ---
:1980 Author Organization [facility] Address [address] [place] [address] Care Team Providers Name Role Phone Carlos Nolan M.D. Primary Care Provider [phone] Reason for Visit Reason Onset Date Comments Ovidio/ Call back 06/01/2017 Encounter Details Date Type Department Care Team Description 06/01/2017 Clinical Communication Department of Hosea Noaln/ [facility] Medicine[facility]os M.D. 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 - 06/11/2017 12:15 PM MONOLOGIST Prescription taken to 4th floor front to be faxed to [facility] LOGIST Telephone Encounter - Carlos Nolan M.D. - 06/11/2017 7:35 AM MONOLOGIST A script for 50/325 milligrams is ready. LOGIST Telephone Encounter - Elisabeth Bee R.N. - 06/01/2017 3:13 PM CST I did contact the pharmacy and the pharmacist states Ins. Would cover the 50/325 mg better, but you ordered the 25/325 mg. She states you might not want her to have that high of a dose of the Butalbital, and that Gen. Imitrex might be a better option. She doesn't see that she has ever had the Imitrex,so she wasn't sure how well ins. Would cover that, but generally most ins. Cover the generic. Pleaseadvise. I also contacted the patient and she states in the past she has gotten the 50/325 mg and didwell with that. Also she states you had sent in 50/300 mg and that was also very expensive. Please advise and send Rx to [facility]. Thanks. LOGIST Telephone Encounter - Willy Jefferson - 06/01/2017 10:52 AM CST Patient stated that she was advised by Dr. Nolan's nurse that her medication was sent to [facility] yesterday. She said that [facility] has not received the refill request. She would like a call back. Please advise, Thank you. LOGIST documented in this encounter Plan of Treatment Not on filedocumented as of this encounter Visit Diagnoses Not on filedocumented in this encounter Additional Health Concerns Assessment Noted Time PHQ-9 Depression Total Score: 1 05/14/2017 7:51 AM MONOLOGIST documented as of this encounter Care Teams Kettle Cleaner Relationship Specialty Start Date End Date Carlos Nolan M.D. PCP - General 10/08/16 01/04/18 documented as of this encounter
--- OUTSIDE RECORDS SUMMARY | 2021-12-10 15:35 | XMS_ITS | Encounter Summary ---
:1980 Author Organization [facility] Address [address] [place] [address] Care Team Providers Name Role Phone Carlos Vang M.D. Primary Care Provider [phone] Encounter Details Date Type Department Care Team Description 11/09/2016 Hospital Encounter HX [facility] Dominga Foster M.D. 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 0 07/16/2014 IBUPROFEN ORAL ibuprofen 0 07/16/2014 MULTIVITAMIN WITH MINERALS Take 1 capsule by 0 ORAL mouth daily. documented as of this encounter Progress Notes Dominga Foster M.D. - 11/09/2016 10:10 AM CDT [id number] Jeannine returns due to her pain in the right lower abdomen, pelvis, groin, thigh pain for over 1 year. She used to be seen by me for right neck pain. She underwent physical therapy and chiropractic treatment. She states her neck is doing well. She fell over her baby gate about 1 year ago. She had a history of fall, fell down some stairs in January 2016, tripped over a baby gate, injured her left thigh and right elbow. She was seen by Dr. Johnson at the time. She cannot recall whether this fall had made her pain worse. She states the pain has been over a year and seems to be getting worse, not getting any better. Pain seems to be getting worse by exercise, bending over, or position changes, sitting to stand. She is a runner regularly. At this time pain level is 4 on a scale 0 to 10 but with activity described above makes her pain worse, going up to 8 on a scale 0 to 10. She feels pain in the rightlower abdomen and groin. It goes to the anterior thigh and she does have pain lateral hip. Sometimesthe pain goes up to the abdomen, up to the lower rib area. She denies any numbness, tingling sensation. She has been taking Cymbalta 40 mg daily and ibuprofen 600 mg to 800 mg as needed for her pain and she takes Extra Strength Tylenol as well. Denies any weakness. Sometimes it is a sharp, burning, aching pain. Medication provides some relief of pain. Heat, sitting, resting makes her pain somewhat better. Denies any bladder or bowel dysfunction, any numbness, tingling any weakness sensation in the lower extremity. Sometimes pain gets worse by coughing. Denies unintentional weight loss, fever, nightsweats, chills, any sign of infection. Denies any worsening symptom at night. She does have some mild anxiety. At its best, the pain level goes to 0 on a scale 0 to 10. 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 She never tried any sort of physical therapyor chiropractic treatment for this problem. She had an abdominal CT scan due to her pain in the pelvis and groin in which was negative study. She is going to start her first physical therapy program November 23, 2016. PHYSICAL EXAMINATION GENERAL: The patient is a 36-year-old female, pleasant. MENTAL STATUS: Oriented to person, place. Appropriate mood and affect. MUSCULOSKELETAL: Ambulation without assist device. No antalgic gait noted. She has increased discomfort in the groin and thigh with stretching of the hip flexor muscle but negative for neural stretching test. She has severe tenderness in the right groin, iliopsoas bursa, tendon area and moderate tenderness in the right hip, trochanteric bursa and lower abdomen, pelvis pain on palpation as well. ABDOMEN: Soft but not distended. No palpable mass noted. MUSCLE STRENGTH: In the lower extremities normal symmetric. SENSORY: Intact to light touch, pinprick sensation. EXTREMITIES: Hip range of motion, sliding, discomfort increases with FADIR test. CHRIS test negative. Resistive hip flexor test, iliopsoas activation was negative. There is no significant tenderness inthe right SI joint, gluteal region. IMPRESSION/REPORT/PLAN Chronic right lower abdomen, pelvis, groin, thigh pain, likely iliopsoas tendonitis or bursitis. It could be some hip joint issue. Would like to have a right hip joint x-ray to evaluate any underlying hip joint osteoarthritis and also suggested diagnostic and therapeutic right hip iliopsoas bursa injection under the ultrasound guidance. She will be scheduled at her earliest convenience. She will continue current pharmacologic regimen. Dominga Foster M.D./suly Electronically Signed By: DOMINGA FOSTER MD On: 11/11/2016 03:12 PM Source: [facility] MHSDOLBEYNONRADSYS Document Id: [id number] documented in this encounter Miscellaneous Notes Miscellaneous - Dominga Foster M.D. - 11/09/2016 1:10 PM CDT Ambulatory Discharge Medication List [address] [id number] Visit Information Name: JEANNINE OWENS [facility] Number: [id number] Current Date: 11/09/2016 13:10:07 Attending Provider: DOMINGA FOSTER MD Primary Care Provider: CARLOS VNAG MD JEANNINE OWENS has been given the [...] lunch / (Adderal) please call pt for pick remover. Pt uses [employer]. DULoxetine (DULoxetine 40 mg oral delayed release capsule) 1 cap, Oral, once a day ibuprofen (ibuprofen) multivitamin with minerals (multivitamin with minerals Multiple Vitamins with Zinc oral capsule) 1 cap, Oral, once a day with magnesium Stop Taking the Following Medications: Medication list as of 11-09-16 13:10 Attention: If you have any medications at home that are not on this list, DO NOT take them until youcontact your provider for clarification. Give a copy of your medication list to your primary care provider. Update your medication list any time medications or doses are changed and carry your medication list at all times in case of emergency. Electronically Signed By: DOMINGA FOSTER MD Signed On:09-NOV-2016 13:10:05 Additional Information: Source: [facility] POWERCHART Document Id: [id number] Miscellaneous - Dominga Foster M.D. - 11/09/2016 1:10 PM CDT Ambulatory Patient Summary [address] [id number] Visit Information Name: JEANNINE OWENS [facility] Number: [id number] Current Date: 11/09/2016 13:10:08 Physicians Attending Provider: DOMINGA FOSTER MD Primary Care Provider: CARLOS VANG MD [...] lunch / (Adderal) please call pt for pick remover. Pt uses [email or web address]. DULoxetine (DULoxetine 40 mg oral delayed release capsule) 1 cap, Oral, once a day ibuprofen (ibuprofen) multivitamin with minerals (multivitamin with minerals Multiple Vitamins with Zinc oral capsule) 1 cap, Oral, once a day with magnesium Stop Taking the Following Medications: Medication list as of 11-09-16 13:10 Attention: If you have any medications at home that are not on this list, DO NOT take them until youcontact your provider for clarification. Give a copy of your medication list to your primary care provider. Update your medication list any time medications or doses are changed and carry your medication list at all times in case of emergency. Electronically Signed By: DOMINGA FOSTER MD Signed On:09-NOV-2016 13:10:05 Your Allergies & Intolerances Substance Reaction Symptoms [...] Your Upcoming Appointments Date Time Location Provider 11/18/2016 08:15 [facility] PMR Dominga Fotser MD 11/23/2016 09:30 [facility] PT Jeannine Cunha Attention: Contact your local Clinic if further [...] if you dont have one. Go to [email or web address] and click on Create Your Account. Then, follow the directions to complete the online form. Youll be asked for your [facility] number which you can find at the top of this document. Your Goals/Additional instructions: Source: [facility] POWERCHART Document Id: [id number] Miscellaneous - Karen Sweeney L.P.N. 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 Referred by . Patient reports pain comes and goes, today pain scale 4/10, can increase to 8/10 with bending, going from a sitting to standing position. Onset one year. Height : 166 cm(Converted to: 5 ft 5 inch(es), 65 inch(es)) KAREN SWEENEY LPN - 11/09/2016 10:34 CDT General Info Information Given By : Patient Languages : Chinese Is Patient Female and 13-50 no hysterectomy : No KAREN SWEENEY LPN - 11/09/2016 10:34 CDT Subjective Pain Symptoms : Yes KAREN SWEENEY LPN - 11/09/2016 10:34 CDT Pain Scale Pain Scale Verbal 0-10 : Open KAREN SWEENEY LPN - 11/09/2016 10:34 CDT Pain Pain Assessment Grid Pain 1 Pain 2 Pain 3 Location : Hip Groin Abdomen Laterality : Right Right Right Intensity : 4 4 4 KAREN SWEENEY LPN - 11/09/2016 10:34 CDT KAREN SWEENEY LPN - 11/09/2016 10:34 CDT KAREN SWEENEY LPN - 11/09/2016 10:34 CDT (Comment: Pain can increase at times to 8/10 with bending, excercise, going from a sitting to standing position. [KAREN SWEENEY LPN - 11/09/2016 10:34 CDT] ) Dependent Habits Exposure to Tobacco Smoke : Care provider denies smoking in home, Other: NEVER Smoking Status : Never smoker Tobacco 2A : No Tobacco Use/Currently Using : No Tobacco Use/Last 30 Days : No Tobacco Use/Last 12 months : No KAREN SWEENEY LPN - 11/09/2016 10:34 CDT Caffeine Use Grid Caffeine Use : Current Type : Soft drinks Frequency : Weekly Amount : 3 cans per week KAREN SWEENEY LPN - 11/09/2016 10:34 CDT Recreational Drug Use Grid Drug Use : None KAREN SWEENEY LPN - 11/09/2016 10:34 CDT Source: [employer] Document Id: [id number] documented in this encounter Plan of Treatment Not on filedocumented as of this encounter Visit Diagnoses Not on filedocumented in this encounter Additional Health Concerns Assessment Noted Time PHQ-9 Depression Total Score: 2 09/03/2016 10:31 AM CD T documented as of this encounter Care Teams Musical Performer Relationship Specialty Start Date End Date Carlos Vang M.D. PCP - General 10/08/16 01/04/18 documented as of this encounter
--- OUTSIDE RECORDS SUMMARY | 2021-12-10 15:35 | XMS_ITS | Encounter Summary ---
:1980 Author Organization [facility] Address [address] [place] [address] Care Team Providers Name Role Phone NabilChelsea Marcelina AGRAWAL, C.N.P., D.N.P. 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 - 09/11/2021 8:35 AM CDT PCOCC TRIAGE NOTE Ms. Arcos's appointment request form was reviewed with regard to potential post-COVID syndrome (PoCoS). 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 Tram Salamanca APRN, C.N.P., M.S.N. Telephone Encounter - Rhea Gilmore - 09/09/2021 1:56 PM CDT Images from the original note were not included. [id number] Denice Arcos 1980 Person filling out this form: Patient Primary critical care unit nurse: Dr. Perez Symptoms, complications, diagnosis have developed/worsened in relation to COVID-19: Yes Patient - hopes: Better ability to manage symptoms and to be able to return to somewhat of a normal life. 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 Feeling nervous, anxious, or on edge: Several days ??? Not being able to control or stop worrying: Not at all ??? Little interest or pleasure in doing things: Several days ??? Feeling down, depressed, or helpless:Not at all Willing to speak with a mental health professional: Willing to attend Health & Wellness Coaching: Yes Confident to take action: Agree Confident to follow through: Agree Why disagree with confidence in action/follow through: Read the [facility] Post COVID-19 Care Clinic online materials: Willing to do either virtual or [id number]-ov-pbyb: Yes Preference: [id number]-ke-wyiq CONTACT/SCHEDULING INFO I AM AVAILABLE ANY TIME Not available: SYMPTOMS SYMPTOM WHEN Medical Institution(s) Seen By Tests Abdominal pain Ansomia Parosmia Dysgeusia Anxiety During, After Blood clots Brain fog Chest pain/tightness Cough Depression Diarrhea Dizziness Dizziness when standing Fast beating, fluttering, or pounding heart After [facility] Primary care provider Fast heart rate After [facility] Primary care provider EKG Fatigue Fever Headache During, After [facility] Primary care provider Joint pain After [facility] Primary care provider Myalgias After [facility] Primary care provider Nausea Numbness & tingling Problems with memory, focusing, or learning Sensitivity to light Shortness of breath Sleep disturbance During, After [facility] Primary care provider Spells/tremors Tachycardia After [facility] Primary care provider EKG Tenderness Vomiting Weakness Widespread pain COMPLICATIONS COMPLICATION WHEN Medical Institution(s) Seen By Tests Amputation Blood Clots Debilitating hospitalization Pulmonary embolism Stroke DIAGNOSIS DIAGNOSIS WHEN Medical Institution(s) Seen By Tests Asthma Autonomic neuropathie Chronic fatigue COPD Fibromyalgia Interstitial lung disease POTS Pulmonary fibrosis Click Link for PDF View: [email or web address] elYwLHUOeHE1pZdD3eHv8iRVAI-855lgCumdI4lVZ-0Vg%3L6hTJp%7OpL4g-vz8ofyIMqIxU56XFKet -twZiYxxl9RLAge2R32h% 1BhwobxIAYt12gxiUux9oXehEzJLYH9c6Xo17YbOKesOSuWtBFRTXo%2E-ybwtVVaP%2ERSYPDIDVbTK CaRPjCKDmNY4R9rI6sZam Kvp6bz6%2NgmPgJwWciOTxry7ppL0Y-YHshHTzGqqGfNPzOZ-1IUO2zJXxfVVQtkz0qV6bRr%2ETPY COVID Documentation: documented in this encounter Plan of Treatment Not on filedocumented as of this encounter Visit Diagnoses Not on filedocumented in this encounter Additional Health Concerns Assessment Noted Time PHQ-9 Depression Total Score: 1 05/14/2017 7:51 AM PLASMA SPECIALIST documented as of this encounter Care Teams Case Therapist Relationship Specialty Start Date End Date Chelsea Ferrer, NGHIA, C.N.P., D.N.P. PCP - General 01/05/18 [address] [id number] documented as of this encounter
--- OUTSIDE RECORDS SUMMARY | 2021-12-10 15:35 | XMS_ITS | Encounter Summary ---
:1980 Author Organization [facility] Address [address] [place] [address] Care Team Providers Name Role Phone Chelsea Ferrer APRN, C.N.P., D.N.P. Primary Care Provide r Encounter Details Date Type Department Care Team Description 01/29/2020 Orders Only [facility] Chelsea Ferrer, Sc reening Mammogram MNT NGHIA C.N.P., D. N.P. 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 PCP - General 01/05/18 [address] [phone] documented as of this encounter
--- OUTSIDE RECORDS SUMMARY | 2021-12-10 15:35 | XMS_ITS | Encounter Summary ---
:1980 Author Organization [facility] Address [address] [place] [address] Care Team Providers Name Role Phone Carlos Nolan M.D. Primary Care Provider [phone] Encounter Details Date Type Department Care Team Description 11/12/2017 Orders Only Department of Family Carlos Nolan, Medicine, 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 PCP - General 10/08/16 01/04/18 documented as of this encounter
--- OUTSIDE RECORDS SUMMARY | 2021-12-10 15:35 | XMS_ITS | Encounter Summary ---
:1980 Author Organization [facility] Address [address] [place] [address] Care Team Providers Name Role Phone Chelsea Ferrer APRN, C.N.P., D.N.P. Primary Care Provide r Encounter Details Date Type Department Care Team Description 08/16/2020 Orders Only [facility] P[facility] Sa elmer Munoz M.D. 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 PCP - General 01/05/18 [address] [place] [address] documented as of this encounter
--- OUTSIDE RECORDS SUMMARY | 2021-12-10 15:35 | XMS_ITS | Encounter Summary ---
:1980 Author Organization [facility] Address [address] [place] [address] Care Team Providers Name Role Phone Carlos Nolan M.D. Primary Care Provider [phone] Encounter Details Date Type Department Care Team Description 11/14/2017 Orders Only Department of Family Carlos Nolan, Medicine, 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 PCP - General 10/08/16 01/04/18 documented as of this encounter
--- OUTSIDE RECORDS SUMMARY | 2021-12-10 15:36 | XMS_ITS | Encounter Summary ---
:1980 Author Organization [facility] Address [address] [place] [address] Care Team Providers Name Role Phone Unavailable Primary Care Provider Unavailable Encounter Details Date Type Department Care Team Description 07/23/2016 Hospital Encounter HX [facility] Carlos Gillette M.D. 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 documented in this encounter Results CMP (Comprehensive Metabolic Panel) (07/23/2016 9:55 AM CDT) P athologist Signature Alanine 16 7 - 45 UL POWERCHART Amniotransferas e, LD Albumin, S 4.6 3.5 - 5.2 POWERCHART GDL Comment: Reference values have not been established for patients that are less than 12 months of age. Alkaline Phosphatase, S 53 35 - 105 UL AUDREY RCHART Aspartate Aminotransferase (AST), S 16 8 - 43 POWERCHART Sodium, S 139 135 - 145 MMOLL POWERCHART Comment: Reference values have not been established for patients that are less than 12 months of age. Potassium, S 4.1 3.6 - 5.2 MMOLL POWERCHART Comment: Reference values have not been established for patients that are less than 12 months of age. Chloride, S 100 98 - 107 MMOLL POWERCHART Comment: Reference values have not been established for patients that are less than 12 months of age. CO2 Total 27 22 - 29 MMOLL POWERCHART Comment: Reference values have not been established for patients that are less than 12 months of age. BUN (Blood Urea Nitrogen), S 13 6 - 24 MGDL POWERCHART Creatinine, S 0.71 0.51 - 0.95 MGDL POWERCHAR T Comment: Reference values have not been establish ed for patients that are <12 months of age. ESTIMATED GFR >60 mL/min/BSA Note: eGFR results will not be calculate d for patients <18 Calcium, Total, S 9.8 8.6 - 10.3 MGDL POWERC RUIZ Anion Gap 12 7 - 15 MMOLL POWERCHART HXeGFR (MDRD) >60 >=60 [id number] POWERCHART eGFR Black/ >60 >=60 [id number] POWERCHART Bilirubin, Total, S 0.4 <=1.2 MGDL POWERCHAR T Comment: No estab ref range for patients 84 hours to 1 month of age. Total Protein, S 7.4 6.4 - 8.3 GDL POWERCHAR T Comment: Reference values have not been established for patients that are less than 12 months of age. Glucose 102 70 - 139 MGDL POWERCHART Comment: ADA Diagnostic Criteria: -Fasting glucose > or = 126 mg/dL after an 8 hr fast OR -2-Hr glucose > or = to 200 mg/dL during a 75 gram oral load OR -Glucose casual (random) glucose > or = 200 mg/dL plus typical symptoms 3-Hour Glucose Tolerance Diagnostic Cut- offs (after an 8-hour fast): Fasting >=95 mg/dL 1 Hour >=180 mg/dL 2 Hour >=155 mg/dL 3 Hour >=140 mg/dL Reference values have not been establish ed for patients that are less than 12 months of age. Specimen (Source) Anatomical Collection Method Collection Time Re ceived Time Location / / Volume Laterality Blood 07/23/2016 9:55 AM CDT Carlos Nolan M.D. LAB BLOOD ADD-ON Performing Organization Address City/State/ZIP Code Phon e Number POWERCHART documented in this encounter Visit Diagnoses Not on filedocumented in this encounter
--- OUTSIDE RECORDS SUMMARY | 2021-12-10 15:36 | XMS_ITS | Encounter Summary ---
:1980 Author Organization [facility] Address [address] [place] [address] Care Team Providers Name Role Phone Unavailable Primary Care Provider Unavailable Encounter Details Date Type Department Care Team Description 07/27/2016 Hospital Encounter HX [facility] Carlos Vang M.D. 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 0 07/16/2014 IBUPROFEN ORAL ibuprofen 0 07/16/2014 MULTIVITAMIN WITH MINERALS Take 1 capsule by 0 ORAL mouth daily. documented as of this encounter Procedure Notes Lenard Obando, RCinthiaT.(R) - 07/27/2016 1:15 PM CDT Peripheral IV Peripheral IV Entered On: 07/27/2016 13:10 CDT Performed On: 07/27/2016 13:15 CDT by LENARD OBANDO RT(R) Peripheral IV Peripheral IV Assess/Intervention Grid Peripheral IV #1 IV Activity : Discontinue Removal : Catheter intact, Hemostasis within expected timeframe Date of Insertion : 07/27/2016 CDT IV Site : Antecubital Laterality : Right Catheter Size : 20 Catheter Type : Protective Site Condition : No complications LENARD OBANDO(Jesse) - 07/27/2016 13:09 CDT Source: [facility] Document Id: [id number] CDT!12 Lenard Obando R.T.(Jesse) - 07/27/2016 1:05 PM CDT Peripheral IV Peripheral IV Entered On: 07/27/2016 13:06 CDT Performed On: 07/27/2016 13:05 CDT by LENARD OBANDO(R) Peripheral IV Peripheral IV Assess/Intervention Grid Peripheral IV #1 IV Activity : Start Number of Attempts : 1 Date of Insertion : 07/27/2016 CDT IV Site : Antecubital Laterality : Right Catheter Size : 20 Catheter Type : Protective Site Condition : No complications LENARD OBANDO(R) - 07/27/2016 13:05 CDT Source: [facility] Document Id: [id number] CDT!12 documented in this encounter Miscellaneous Notes Miscellaneous - Carlos Vang M.D. - 07/28/2016 9:49 PM CDT Results Notification Document Contains Addenda Addendum by STEPHAN RAJAN RN on July 29, 2016 11:22:24 CDT Pt notified of Dr. Vang's message below. From: CARLOS VANG MD To: [place] [facility] Team 1 Nurse; Sent: 07/28/2016 21:49:18 CDT Show up: 07/28/2016 21:47:00 CDT Subject: Results Notification Please inform Denice that her CT scan does not reveal any significant findings. The ovarian cyst is stable and there is a benign hemangioma in the liver. No further workup recommended. She can be reevaluated in the future if needed. Thanks Results: Date Result Type Result Name 07/27/2016 13:[address] Abdomen/Pelvis w/ contrast Source: [facility] POWERCHART Document Id: [id number] Electronically signed by Conversion, [facility] Rattling Machine Tender [id number] at 10/06/2016 6:07 AM CDT documented in this encounter Plan of Treatment Not on filedocumented as of this encounter Procedures Procedure Name Priority Date/Time Associated Diagnosis Comme nts CT ABDOMEN PELVIS Routine 07/27/2016 1:06 PM Resu lts for this WITH IV CONTRAST CDT procedure a re in the results section. documented in this encounter Results CT Abdomen Pelvis with IV Contrast (07/27/2016 1:06 PM CDT) Anatomical Region Laterality Modality Abdomen, Pelvis N/A Computed Tomography Specimen (Source) Anatomical Collection Method Collection Time Re ceived Time Location / / Volume Laterality 07/27/2016 1:06 PM CDT Addenda Addendum by Provider, Shakila Villagran n 07/27/2016 1:06 PM CDT RAD^^^AL CT Abdomen/Pelvis w/ contrast 07/27/2016 13:06:49 Addendum by Tyshawn Kim M.D. o n 07/27/2016 1:30 PM CDT RAD^^^AL CT Abdomen/Pelvis w/ contrast 07/27/2016 13:30:00 Impressions 07/27/2016 1:54 PM CDT Negative abdomen and pelvic CT. FINDINGS: Stable 8 mm cyst or hemangioma left hepatic lobe. The liver is otherwise unremarkable. The gallbladd er, spleen, pancreas, adrenal glands, and kidneys are unremarkable. No bowel obstruction. Hysterectomy. No free fluid or free air. No lymphadenopathy. Stable left ovarian cyst measuring 12 mm. No si gnificant change since 07/26/2014. Narrative 07/27/2016 1:54 PM CDT EXAM: CT Abdomen/Pelvis w/ contrast INDICATION: chronic RLQ pain COMPARISON: 07/26/2014 ?? Procedure Note Mayelin Wills M.D. / Provider, Juve alberts M.D. - 10/12/2016 EXAM: CT Abdomen/Pelvis w/ contrast INDICATION: chronic RLQ pain COMPARISON: 07/26/2014 IMPRESSION: Negative abdomen and pelvic CT. FINDINGS: Stable 8 mm cyst or hemangioma left hepatic lobe. The liver is otherwise unremarkable. The gallbladd er, spleen, pancreas, adrenal glands, and kidneys are unremarkable. No bowel obstruction. Hysterectomy. No free fluid or free air. No lymphadenopathy. Stable left ovarian cyst measuring 12 mm. No si gnificant change since 07/26/2014. Adelaida Garrison(R)(CT), R.T.(R) IMG CT PROCEDUR ES documented in this encounter Visit Diagnoses Not on filedocumented in this encounter
--- OUTSIDE RECORDS SUMMARY | 2021-12-10 15:36 | XMS_ITS | Encounter Summary ---
:1980 Author Organization [facility] Address [address] [place] [address] Care Team Providers Name Role Phone Unavailable Primary Care Provider Unavailable Encounter Details Date Type Department Care Team Description 03/25/2016 Hospital Encounter HX [facility] Carlos Vang M.D. 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 0 07/16/2014 IBUPROFEN ORAL ibuprofen 0 07/16/2014 MULTIVITAMIN WITH MINERALS Take 1 capsule by 0 ORAL mouth daily. documented as of this encounter Progress Notes Carlos Vang M.D. - 03/25/2016 8:02 AM CST [id number] CHIEF COMPLAINT/REASON FOR VISIT 1. Attention deficit with hyperactivity disorder. 2. Migraine headache. HISTORY OF PRESENT ILLNESS Denice comes in today to have herself evaluated and would like to have her medications refilled. She currently has been tolerating well from Adderall 10 mg tablet on a 2 times a day basis. She declines any significant side effects with the medication. Informs me that her ADHD symptoms have been fairly well controlled and would like to have the medications refilled. She also would like to have the medications pertaining to her migraine headache refilled. She now has been taking Cymbalta on a regular basis. She does take butalbital with acetaminophen for breakthrough pain. She would like to have that refilled as well. PAST MEDICAL/SURGICAL HISTORY Reviewed on 03/25/2016. SOCIAL HISTORY Reviewed on 03/25/2016. FAMILY HISTORY Reviewed on 03/25/2016. MEDICATIONS Reviewed on 03/25/2016. ALLERGIES Reviewed on 03/25/2016. SYSTEMS REVIEW As above. All other systems reviewed and negative. PHYSICAL EXAMINATION VITAL SIGNS: Reviewed. GENERAL: In no apparent distress, comfortable and cooperative. HEENT: Normocephalic, atraumatic. EOMI. PERRL. No conjunctival injection. Nose patent bilaterally without erythema or drainage. Oropharynx: [place] mucous membranes without lesions, exudate or drainage. NECK: Supple without lymphadenopathy. No thyromegaly or thyroid masses. CARDIOVASCULAR: Regular rate and rhythm without murmur, gallop or rubs. LUNGS: Clear to auscultation bilaterally without wheezing or rales. ABDOMEN: Soft, nontender and nondistended. Normal active positive bowel sounds. No hepatosplenomegaly or masses appreciated. EXTREMITIES: No clubbing, cyanosis or edema. IMPRESSION/REPORT/PLAN 1. Migraine headache. Currently doing well on Cymbalta on a daily basis. She does need butalbital with acetaminophen for breakthrough pain. This has been provided. Refills have been provided. 2. Attention deficit hyperactivity disorder. Currently doing well on Adderall 2 times a day. Three scripts provided. Followup as needed. Vinod Orr/suly Electronically Signed By: CARLOS VANG MD On: 03/26/2016 01:11 PM Source: [facility] MHSDOLBEYNONRADSYS Document Id: [id number] SELECTOR documented in this encounter Miscellaneous Notes Miscellaneous - Carlos Vang M.D. - 03/25/2016 9:37 AM CST Ambulatory Patient Summary [facility] [address] [facility] [place] [id number] Visit Information Name: ANDREW OWENSHUGH [facility] Number: [id number] Current Date: 03/25/2016 09:37:34 Physicians Attending Provider: CARLOS VANG MD Primary Care Provider: CARLOS VANG MD DENICE [...] for Patient Medication Changes/Routing acetaminophen (Tylenol) Oral butalbital-acetaminophen (butalbital-acetaminophen 50 mg-325 mg oral tablet) 2 Tablet(s), Oral, every 6 hours as needed for pain x 10 day(s) New Routed to [facility] dextroamphetamine-amphetamine (dextroamphetamine-amphetamine 5 mg oral tablet) See Instructions 1 tab(s) PO DAILY AM AND NOON. Can be filled 30 days after the last refill. 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 Pt uses [employer]. This is a CHANGE Routed to [facility] DULoxetine (DULoxetine 40 mg oral delayed release capsule) 1 cap, Oral, once a day This is a CHANGE Routed to [facility] [address] [facility] [place] [id number] ibuprofen (ibuprofen) indomethacin (indomethacin 25 mg oral capsule) 2 cap, Oral, three times a day as needed for Pain Take with food multivitamin with minerals (multivitamin with minerals Multiple Vitamins with Zinc oral capsule) 1 cap, Oral, once a day with magnesium Stop Taking the Following Medications: dihydroergotamine (dihydroergotamine 4 mg/mL nasal spray) ondansetron (ondansetron 4 mg oral tablet, disintegrating) Medication list as of 03-25-16 09:37 Attention: If you have any medications at [...] Electronically Signed By: CARLOS VANG MD Signed On:25-MAR-2016 09:37:31 Your Allergies & Intolerances Substance Reaction Symptoms [...] if you dont have one. Go to [email or web address] and click on Create Your Account. Then, follow the directions to complete the online form. Youll be asked for your [facility] number which you can find at the top of this document. Your Goals/Additional instructions: Source: [facility] POWERCHART Document Id: [id number] SELECTOR Miscellaneous - Carlos Vang M.D. - 03/25/2016 9:37 AM CST Ambulatory Discharge Medication List [facility] [address] [facility] [place] [id number] Visit Information Name: ASHLEYANDREW LinHUGH [facility] Number: [id number] Current Date: 03/25/2016 09:37:33 Attending Provider: CARLOS VANG MD Primary Care Provider: CARLOS VANG MD ASHLEYRileyANDREWDENICE LYNN has been given the following list of medications: Your Medications It is important to take your medications as directed. Use a pill box or chart to help remind you to take your medications. Please let your doctor or nurse know if you have problems taking your medications. Medication/Strength How to Take Indications/Special Instructions/Comments/Notes for Patient Medication Changes/Routing acetaminophen (Tylenol) Oral butalbital-acetaminophen (butalbital-acetaminophen 50 mg-325 mg oral tablet) 2 Tablet(s), Oral, every 6 hours as needed for pain x 10 day(s) New Routed to [employer] dextroamphetamine-amphetamine (dextroamphetamine-amphetamine 5 mg oral tablet) See Instructions 1 tab(s) PO DAILY AM AND NOON. Can be filled 30 days after the last refill. 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 Pt uses [facility]. This is a CHANGE Routed to [facility] DULoxetine (DULoxetine 40 mg oral delayed release capsule) 1 cap, Oral, once a day This is a CHANGE Routed to [facility] [address] [facility] [place] [id number] ibuprofen (ibuprofen) indomethacin (indomethacin 25 mg oral capsule) 2 cap, Oral, three times a day as needed for Pain Take with food multivitamin with minerals (multivitamin with minerals Multiple Vitamins with Zinc oral capsule) 1 cap, Oral, once a day with magnesium Stop Taking the Following Medications: dihydroergotamine (dihydroergotamine 4 mg/mL nasal spray) ondansetron (ondansetron 4 mg oral tablet, disintegrating) Medication list as of 03-25-16 09:37 Attention: If you have any medications at [...] Electronically Signed By: CARLOS VANG MD Signed On:25-MAR-2016 09:37:31 Additional Information: Source: [facility] POWERCHART Document Id: [id number] SELECTOR Miscellaneous - Negin Carrillo, L.P.N. - 03/25/2016 8:19 AM CST Adult Wave Guide Assembler Intake/History Adult Wave Guide Assembler Intake/History Entered On: 03/25/2016 8:21 FOOD SELECTOR Performed On: 03/25/2016 8:19 FOOD SELECTOR by NEGIN CARRILLO Intake Chief Complaint : Med refill Temperature Core : 36.6 DegC(Converted to: 97.9 DegF) Peripheral Pulse Rate : 72 /min Systolic Blood Pressure : 102 mmHg Diastolic Blood Pressure : 60 mmHg NIBP Mean : 74 mmHg Height : 166 cm(Converted to: 5 ft 5 inch(es), 65 inch(es)) Actual Weight : 59.6 kg(Converted to: 131 lb 6 oz) Weight Source : Standing scale Dosing Weight Clinic : 59.6 kg Clinic BSA : 1.66 Body Mass Index : 21.63 kg/m2 NEGIN CARRILLO - 03/25/2016 8:19 FOOD SELECTOR General Info Information Given By : Patient Languages : Swedish Is Patient Female and 13-50 no hysterectomy : No NEGIN CARRILLO - 03/25/2016 8:19 FOOD SELECTOR Subjective Pain Symptoms : No NEGIN CARRILLO - 03/25/2016 8:19 FOOD SELECTOR Dependent Habits Exposure to Tobacco Smoke : Care provider denies smoking in home, Other: NEVER Smoking Status : Never smoker Tobacco 2A : No Tobacco Use/Currently Using : No Tobacco Use/Last 30 Days : No Tobacco Use/Last 12 months : No Alcohol Use : Yes NEGIN CARRILLO - 03/25/2016 8:19 FOOD SELECTOR Caffeine Use Grid Caffeine Use : Current Type : Soft drinks Frequency : Weekly Amount : 3 cans per week NEGIN CARRILLO - 03/25/2016 8:19 FOOD SELECTOR Recreational Drug Use Grid Drug Use : None NEGIN CARRILLO - 03/25/2016 8:19 FOOD SELECTOR Source: [facility] [employer] Document Id: [id number] FOOD SELECTOR!37 SELECTOR documented in this encounter Plan of Treatment Not on filedocumented as of this encounter Visit Diagnoses Not on filedocumented in this encounter
--- OUTSIDE RECORDS SUMMARY | 2021-12-10 15:36 | XMS_ITS | Encounter Summary ---
:1980 Author Organization [facility] Address [address] [place] [address] Care Team Providers Name Role Phone Unavailable Primary Care Provider Unavailable Encounter Details Date Type Department Care Team Description 06/22/2016 Hospital Encounter HX [facility] Carlos Vang M.D. 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 documented as of this encounter Last Filed Vital Signs Vital Sign Reading Time Taken Comments Blood Pressure 123/79 06/22/2016 9:42 AM CHOCOLATE DIPPER Pulse 100 06/22/2016 9:42 AM CHOCOLATE DIPPER Temperature - - Respiratory Rate - - Oxygen Saturation - - Inhaled Oxygen Concentration - - Weight 60.3 kg (132 lb 15 oz) 06/22/2016 9:42 AM CHOCOLATE DIPPER Height 166 cm (5' 5.35) 06/22/2016 9:42 AM CHOCOLATE DIPPER Body Mass Index 21.88 06/22/2016 9:42 AM CHOCOLATE DIPPER documented in this encounter Medications at Time of Discharge Medication Sig Dispensed Refills Start Date End Date ACETAMINOPHEN ORAL Take by mouth. 0 07/16/2014 IBUPROFEN ORAL ibuprofen 0 07/16/2014 MULTIVITAMIN WITH MINERALS Take 1 capsule by 0 ORAL mouth daily. documented as of this encounter Progress Notes Carlos Vang M.D. - 06/22/2016 9:35 AM CST [id number] CHIEF COMPLAINT/REASON FOR VISIT 1. Right lower quadrant abdominal pain. 2. Migraine headache. HISTORY OF PRESENT ILLNESS Denice comes in to have herself evaluated. She informs me that approximately a year ago, she was evaluated at [facility] regarding her intermittent right-sided lower quadrant abdominal pain. She localizes the pain in the right lower quadrant almost in the groin area and informs that she notices some discomfort, sometimes starting pain. She says that the symptoms do get worse when she is trying to some activities. She declines ongoing symptoms of constipation, diarrhea, bloody stool, nausea or vomiting, chest pain, unintentional weight loss, nighttime fever or sweats. She does give a history of having had 2 C sections and hysterectomy done in the past. She is here tohave this further evaluated. In the past with Dr. Gross, she has had ultrasound of the pelvic region conducted without any significant findings. Denice also informs me that she did see Dr. Stafford at [place] for same concern without any significant findings. She comes in today to have this further evaluated. She rates the pain at around 3 to 4 out of 10 at its baseline and sometimes worse when it flares up. Denice also would like to discuss further consultation regarding ongoing issues with headache/migraine. She has been seeing her neurologist for some time now. She has had couple of occipital injections in the past with some benefit. However, the headache continues to persist. She would like to have this further evaluated. PAST MEDICAL/SURGICAL HISTORY Reviewed on 06/22/2016. SOCIAL HISTORY Reviewed on 06/22/2016. FAMILY HISTORY Reviewed on 06/22/2016. MEDICATIONS Reviewed on 06/22/2016. ALLERGIES Reviewed on 06/22/2016. SYSTEMS REVIEW As above. All other systems reviewed and negative PHYSICAL EXAMINATION VITAL SIGNS: Blood pressure 123/79, heart rate of 100, temperature 36.7, weighs 60.3 kg with a BMI of 21.88. GENERAL: In no apparent distress, comfortable and cooperative. HEENT: Normocephalic, atraumatic. EOMI. PERRL. No conjunctival injection. Nose patent bilaterally without erythema or drainage. Oropharynx: Morrow mucous membranes without lesions, exudate or drainage. NECK: Supple without lymphadenopathy. No thyromegaly or thyroid masses. CARDIOVASCULAR: Regular rate and rhythm without murmur, gallop or rubs. LUNGS: Clear to auscultation bilaterally without wheezing or rales. ABDOMEN: Soft, nontender and nondistended. Normal active positive bowel sounds. No hepatosplenomegaly or masses appreciated. The mid and the inner aspect of her right inguinal area does reveal some cough impulse with discomfort on palpation. No other findings are noted. EXTREMITIES: No clubbing, cyanosis or edema. IMPRESSION/REPORT/PLAN 1. Right-sided lower quadrant/inguinal pain. Various etiologies were discussed with Denice including possible hernia. We also did discuss the possible issues with this scar in that area secondary to a couple of sections as well as hysterectomy. She also has had an endovaginal ultrasound done without any significant findings. Various plan of workup was also discussed. I did discuss about possibly getting a CT scan of the abdomen specifically since the pain has been present for almost a year or more now. We also did discuss possible benefit of watchful waiting over the next few months especially since the pain does get worse when she is trying to some activities such as bending. Benefits of avoiding constipation as well as staying active, try not to lift heavy objects were discussed. Denice currently plans to be more proactive with observation for now and see how things go from there.If the symptoms do get worse, further workup including CT scan of the abdomen will be recommended and she agrees with the plan. 2. Regarding her ongoing issues with migraine, a consultation to [facility] Department has been placed. I will follow up as needed. Vinod Orr/suly Electronically Signed By: CARLOS VANG MD On: 07/02/2016 06:27 PM Modified by and Electronically Signed by: CARLOS VANG MD On: 07/02/2016 06:27 PM Source: [facility] MHSDOLBEYNONRADSYS Document Id: [id number] OLATE DIPPER documented in this encounter Nursing Notes Negin Bedoya L.PJennifer. - 06/23/2016 1:55 PM CST Referral To [facility] Per Dr Vang referral sent to [facility], migraines Electronically Signed By: NEGIN BEDOYA LPN On: 06/23/2016 01:56 PM Source: [facility] POWERCHART Document Id: [id number] OLATE DIPPER documented in this encounter Miscellaneous Notes Miscellaneous - Conversion, Historical Provider Ser - 07/15/2016 11:11 AM CDT CALL/CONCERNS/SHIRAMA Document Contains Addenda Addendum by RAMIRO WOLFE LPN on July 20, 2016 11:29:30 CDT Patient informed of message. Patient scheduled for blood draw on 07/20 @ 1040. Addendum by CALIXTO CHAIREZ RN on July 20, 2016 11:13:24 CDT message left for patient to return a phone call. Addendum by CARLOS VANG MD on July 20, 2016 07:29:03 CDT From: CARLOS VANG MD To: [facility]; Sent: 07/20/2016 07:29:03 CDT Subject: RE: CALL/FREDDY/TAJ CT ordered. Please recommend that she get her blood draw for kidney function taken care of within the next few days. Need it before the CT. Ordered. Thanks Addendum by CALIXTO CHAIREZ RN on July 15, 2016 11:58:21 CDT From: CALIXTO CHAIREZ RN ([facility] Nurse) To: CARLOS VANG MD; Sent: 07/15/2016 11:58:21 CDT Subject: FW: CALL/CONCERNS/TAJ patient states she experienced abdominal pain during her work out last night, went home to lay down and notice and are protruding in her right lower abdomen. patient states she went to sleep and whenshe woke up this morning the area was gone as well as the pain. patient is wondering about the CT previously discussed at her visit. please advise From: MIRELLA STOUT ([facility]) To: [facility] Nurse; Sent: 07/15/2016 11:11:58 CDT Subject: CALL/CONCERNS/ELVISJENIFFER Caller Name/Relationship: Patient Facility: Call Back #: [phone] Reason for Call: Patient calling states she has been seen recently for a hernia with Taj andstates she has been having some issues with exercising lately. Please call. Source: [facility] POWERCHART Document Id: [id number] Miscellaneous - Carlos Vang M.D. - 06/22/2016 10:04 AM CST Ambulatory Patient Summary [address] [id number] Visit Information Name: DENICE OWENS [facility] Number: [phone] Current Date: 06/22/2016 10:04:51 Physicians Attending Provider: CARLOS VANG MD Primary [...] refill. 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 Pt uses [facility]. DULoxetine (DULoxetine 40 mg oral delayed release capsule) 1 cap, Oral, once a day ibuprofen (ibuprofen) multivitamin with minerals (multivitamin with minerals Multiple Vitamins with Zinc oral capsule) 1 cap, Oral, once a day with magnesium Stop Taking the Following Medications: Medication list as of 06-22-16 10:04 Attention: If you have any medications at [...] Electronically Signed By: CARLOS VANG MD Signed On:22-JUN-2016 10:04:47 Your Allergies & Intolerances Substance Reaction Symptoms [...] if you dont have one. Go to [email or web address] and click on Create Your Account. Then, follow the directions to complete the online form. Youll be asked for your [facility] number which you can find at the top of this document. Your Goals/Additional instructions: Source: [facility] POWERCHART Document Id: [id number] OLATE DIPPER Miscellaneous - Carlos Vang M.D. - 06/22/2016 10:04 AM CST Ambulatory Discharge Medication List [address] [place] [id number] Visit Information Name: DENICE OWENS [facility] Number: [phone] Current Date: 06/22/2016 10:04:50 Attending Provider: CARLOS VANG MD Primary Care [...] refill. 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 Pt uses [facility]. 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/History 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 Intake/History Entered On: 06/22/2016 9:44 CHOCOLATE DIPPER Performed On: 06/22/2016 9:42 CHOCOLATE DIPPER by RAMIRO WOLFE LPN Intake Chief Complaint : Stomach cramps/headaches Temperature Core : 36.7 DegC(Converted to: 98.1 DegF) Peripheral Pulse Rate : 100 /min Systolic Blood Pressure : 123 mmHg Diastolic Blood Pressure : 79 mmHg NIBP Mean : 94 mmHg BP Location : Right upper extremity Blood Pressure Cuff Size : Regular SpO2 : 98 % Oxygen Therapy : Room air Height : 166 cm(Converted to: 5 ft 5 inch(es), 65 inch(es)) Actual Weight : 60.3 kg(Converted to: 132 lb 15 oz) Weight Source : Standing scale Dosing Weight Clinic : 60.3 kg Clinic BSA : 1.67 Body Mass Index : 21.88 kg/m2 RAMIRO WOLFE LPN - 06/22/2016 9:42 CHOCOLATE DIPPER General Info Information Given By : Patient Languages : Comoran Is Patient Female and 13-50 no hysterectomy : No RAMIRO WOLFE LPN - 06/22/2016 9:42 CHOCOLATE DIPPER Subjective Pain Symptoms : No RAMIRO WOLFE LPN - 06/22/2016 9:42 CHOCOLATE DIPPER Dependent Habits Exposure to Tobacco Smoke : Care provider denies smoking in home, Other: NEVER Smoking Status : Never smoker Tobacco 2A : No Tobacco Use/Currently Using : No Tobacco Use/Last 30 Days : No Tobacco Use/Last 12 months : No Alcohol Use : No RAMIRO WOLFE LPN - 06/22/2016 9:42 CHOCOLATE DIPPER Caffeine Use Grid Caffeine Use : Current Type : Soft drinks Frequency : Weekly Amount : 3 cans per week RAMIRO WOLFE LPN - 06/22/2016 9:42 CHOCOLATE DIPPER Recreational Drug Use Grid Drug Use : None RAMIRO WOLFE LPN - 06/22/2016 9:42 CHOCOLATE DIPPER [facility] Document Id: [id number] CHOCOLATE DIPPER!41 OLATE DIPPER documented in this encounter Plan of Treatment Not on filedocumented as of this encounter Visit Diagnoses Not on filedocumented in this encounter
--- OUTSIDE RECORDS SUMMARY | 2021-12-10 15:36 | XMS_ITS | Encounter Summary ---
:1980 Author Organization [facility] Address [address] [place] [address] Care Team Providers Name Role Phone Unavailable Primary Care Provider Unavailable Encounter Details Date Type Department Care Team Description 02/20/2016 Hospital Encounter HX [facility] Carlos Vang M.D. 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 0 07/16/2014 IBUPROFEN ORAL ibuprofen 0 07/16/2014 MULTIVITAMIN WITH MINERALS Take 1 capsule by 0 ORAL mouth daily. documented as of this encounter Progress Notes Carlos Vang M.D. - 02/20/2016 10:00 AM CDT [id number] CHIEF COMPLAINT/REASON FOR VISIT 1. Right shoulder pain. 2. Dysuria. HISTORY OF PRESENT ILLNESS Jeannine comes today to have herself evaluated. She informs me that approximately a week and a half ago she did end up sustaining a fall. She was evaluated by Dr. Johnson on 02/11/2016. She says that shelanded on her right shoulder. The shoulder continues to feel slightly painful. X-ray of that area did not reveal any significant findings. She complains of pain, especially when doing some overhead activities as well as some tightness in her upper back area. She rates the pain at 2 to 3 out of 10, sometimes worse. She has not been using anything over the counter so far, and has been tolerating the pain well so far. She declines any numbness of the extremities and would like to have this further evaluated. Jeannine also informs me that she completed antibiotics for a UTI approximately a month ago. Howeverho still continues to have some symptoms of dysuria and discomfort. She declines any fever or chills and currently is here to have this further evaluated. PAST MEDICAL/SURGICAL HISTORY Reviewed on 02/20/2016. SOCIAL HISTORY Reviewed on 02/20/2016. FAMILY HISTORY Reviewed on 02/20/2016. MEDICATIONS Reviewed on 02/20/2016. ALLERGIES Reviewed on 02/20/2016. SYSTEMS REVIEW As above. All other systems reviewed and negative. PHYSICAL EXAMINATION VITAL SIGNS: Blood pressure 116/62, heart rate of 80, temperature 36.6. Weighs 58.3 kg with a BMI of21.16. GENERAL: Alert, awake and oriented x3. Not in distress. Right shoulder on this person has no deformity noted. No tenderness along the bony prominences were noted. Range of motion was not compromised. She did complain of slight discomfort especially on abduction via 90 degrees as well as some resisted r otation strength of shoulder as well as elbow and wrist were noted to be normal. IMPRESSION/REPORT/PLAN 1. Right shoulder pain entirely muscular in nature. Most likely secondary to her recent fall. Conservative management was discussed with Jeannine. Benefits of Tylenol or Motrin as needed as well as adequate rest has been suggested. She also did discuss potential benefit of acupuncture to prevent future worsening pain in the neck area. I have recommended she try to give it some time and see how thingsgo. If it does get worse, a consultation with Dr. Foster will be placed. She agrees with the plan. 2. Dysuria. I have informed Jeannine that this likely may not be a recurrent urinary tract infection; however, we did talk about disruption in the bladder wall which might result from the infection. Benefits of adequate hydration was discussed. We will be checking a urinalysis today. I will update heronce the report comes back and she agrees with the plan. Vinod Orr/suly Electronically Signed By: CARLOS VANG MD On: 03/11/2016 07:18 AM Modified by and Electronically Signed by: CARLOS VANG MD On: 03/11/2016 07:18 AM Source: [facility] MHSDOLBEYNONRADSYS Document Id: [id number] ENTER/LABOR documented in this encounter Miscellaneous Notes Miscellaneous - Conversion, Historical Provider Ser - 03/12/2016 8:26 AM CARPENTER/LABOR Hosea/Adderall Document Contains Addenda Addendum by NEGIN BEDOYA on March 12, 2016 13:49:28 CARPENTER/LABOR Script taken to 4th floor front office developer to be picked up by pts ed. 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 Pt uses [facility]. 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 Pt uses [facility]. From: YOUNG JONAS ([facility] Harness Placer) To: [facility] 1 Nurse; Sent: 03/12/2016 08:26:26 CARPENTER/LABOR Subject: Hosea/Adderall Caller Name/Relationship: Pt Call Back # [phone] Reason for Call: Pt needs her Adderall refilled. Source: [facility] [employer]lect Document Id: [id number] Miscellaneous - Carlos Vang M.D. - 02/20/2016 12:23 PM CDT Results Notification Document Contains Addenda Addendum by STEPHAN RAJAN RN on February 20, 2016 13:58:29 CDT Pt notified of Dr. Vang's message below. From: CARLOS VANG MD To: [facility] 1 Nurse; Sent: 02/20/2016 12:23:41 CDT Show up: 02/20/2016 12:24:00 CDT Subject: Results Notification Please inform Jeannine that her Urine check is normal. Thanks Results: Date Result Name Ind Value Ref Range 02/20/2016 10:30 UA Color Colorless (Colorless - ) 02/20/2016 10:30 UA Clarity Clear (Clear - ) 02/20/2016 10:30 UA Spec Grav 1.002 02/20/2016 10:30 UA pH 5.5 (<5.0 - ) 02/20/2016 10:30 UA Protein Negative mg/dL (Negative - ) 02/20/2016 10:30 UA Glucose Negative mg/dL (Negative - ) 02/20/2016 10:30 UA Ketones Negative mg/dL (Negative - ) 02/20/2016 10:30 UA Bili Negative (Negative - ) 02/20/2016 10:30 UA Urobilinogen 0.2 mg/dL (0.2 - ) 02/20/2016 10:30 UA Blood Negative (Negative - ) 02/20/2016 10:30 UA Nitrite Negative (Negative - ) 02/20/2016 10:30 UA Leuk Est Negative (Negative - ) 02/20/2016 10:30 UR WBC Occ-3 /HPF (None Seen - ) 02/20/2016 10:30 UR RBC Occ-2 /HPF (None Seen - ) 02/20/2016 10:30 UR Squamous Epi Cells (*) 4-10 /HPF (None Seen - ) Source: [facility] POWERCHART Document Id: [id number] Electronically signed by Conversion, [facility] Hydraulic Boom Operator [id number] at 09/20/2016 10:17 AM CDT Miscellaneous - Carlos Vang M.D. - 02/20/2016 10:23 AM CDT Ambulatory Patient Summary [address] [id number] Visit Information Name: JEANNINE OWENS [facility] Number: [id number] Current Date: 02/20/2016 10:23:46 Physicians Attending Provider: CARLOS VANG MD Primary [...] for Patient Medication Changes/Routing acetaminophen (Tylenol) Oral azelaic acid topical (azelaic acid 20% topical cream) 1 oliver, Topical, two times a day dextroamphetamine-amphetamine (dextroamphetamine-amphetamine 5 mg oral tablet) See Instructions 1 tab(s) PO DAILY AM AND NOON. Ok to fill 30 days after the last visit. 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 dihydroergotamine (dihydroergotamine 4 mg/mL nasal spray) 1 Raleigh(s), Nostrils(Both), as needed as needed for Migraine headache Can repeat dose after 15 minutes if migraine persists. DULoxetine (Cymbalta 20 mg oral delayed release capsule) 1 cap, Oral, once a day If tolerated increase to 40mg after a week ibuprofen (ibuprofen) indomethacin (indomethacin 25 mg oral capsule) 2 cap, Oral, three times a day as needed for Pain Take with food multivitamin with minerals (multivitamin with minerals Multiple Vitamins with Zinc oral capsule) 1 cap, Oral, once a day with magnesium ondansetron (ondansetron 4 mg oral tablet, disintegrating) 1 Tablet(s), Oral, four times a day as needed for Nausea Stop Taking the Following Medications: Medication list as of 02-20-16 10:23 Attention: If you have any medications at [...] Electronically Signed By: CARLOS VANG MD Signed On:20-FEB-2016 10:23:43 Your Allergies & Intolerances Substance Reaction Symptoms [...] if you dont have one. Go to [email or web address] and click on Create Your Account. Then, follow the directions to complete the online form. Youll be asked for your [facility] number which you can find at the top of this document. Your Goals/Additional instructions: Source: [facility] POWERCHART Document Id: [id number] Miscellaneous - Carlos Vang M.D. - 02/20/2016 10:23 AM CDT Ambulatory Discharge Medication List [address] [id number] Visit Information Name: JEANNINE OWENS [facility] Number: [id number] Current Date: 02/20/2016 10:23:45 Attending Provider: CARLOS VANG MD Primary Care [...] for Patient Medication Changes/Routing acetaminophen (Tylenol) Oral azelaic acid topical (azelaic acid 20% topical cream) 1 oliver, Topical, two times a day dextroamphetamine-amphetamine (dextroamphetamine-amphetamine 5 mg oral tablet) See Instructions 1 tab(s) PO DAILY AM AND NOON. Ok to fill 30 days after the last visit. 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 dihydroergotamine (dihydroergotamine 4 mg/mL nasal spray) 1 Raleigh(s), Nostrils(Both), as needed as needed for Migraine headache Can repeat dose after 15 minutes if migraine persists. DULoxetine (Cymbalta 20 mg oral delayed release capsule) 1 cap, Oral, once a day If tolerated increase to 40mg after a week ibuprofen (ibuprofen) indomethacin (indomethacin 25 mg oral capsule) 2 cap, Oral, three times a day as needed for Pain Take with food multivitamin with minerals (multivitamin with minerals Multiple Vitamins with Zinc oral capsule) 1 cap, Oral, once a day with magnesium ondansetron (ondansetron 4 mg oral tablet, disintegrating) 1 Tablet(s), Oral, four times a day as needed for Nausea Stop Taking the Following Medications: Medication list as of 02-20-16 10:23 Attention: If you have any medications at [...] Electronically Signed By: CARLOS VANG MD Signed On:20-FEB-2016 10:23:43 Additional Information: Source: [facility] POWERCHART Document Id: [id number] Miscellaneous - Negin Bedoya, L.P.N. - 02/20/2016 10:09 AM CDT Adult Casing Splitter Intake/History Adult Casing Splitter Intake/History Entered On: 02/20/2016 10:11 CDT Performed On: 02/20/2016 10:09 CDT by NEGIN BEDOYA Intake Chief Complaint : Right shoulder pain- wanat referral for accupunture/ Still having kindey infectionsx Temperature Core : 36.6 DegC(Converted to: 97.9 DegF) Peripheral Pulse Rate : 80 /min Heart Rhythm : Regular Systolic Blood Pressure : 116 mmHg Diastolic Blood Pressure : 62 mmHg NIBP Mean : 80 mmHg BP Location : Right upper extremity Blood Pressure Cuff Size : Regular Height : 166 cm(Converted to: 5 ft 5 inch(es), 65 inch(es)) Actual Weight : 58.3 kg(Converted to: 128 lb 8 oz) Weight Source : Standing scale Dosing Weight Clinic : 58.3 kg Clinic BSA : 1.64 Body Mass Index : 21.16 kg/m2 NEGIN BEDOYA 02/20/2016 10:09 CDT General Info Information Given By : Patient Languages : Kiswahili Is Patient Female and 13-50 no hysterectomy : No NEGIN BEDOYA - 02/20/2016 10:09 CDT Subjective Pain Symptoms : No NEGIN BEDOYA 02/20/2016 10:09 CDT Dependent Habits Exposure to Tobacco Smoke : Care provider denies smoking in home, Other: NEVER Smoking Status : Never smoker Tobacco 2A : No Tobacco Use/Currently Using : No Tobacco Use/Last 30 Days : No Tobacco Use/Last 12 months : No Alcohol Use : Yes NEGIN BEDOYA 02/20/2016 10:09 CDT Caffeine Use Grid Caffeine Use : Current Type : Soft drinks Frequency : Weekly Amount : 3 cans per week NEGIN BEDOYA - 02/20/2016 10:09 CDT Recreational Drug Use Grid Drug Use : None NEGIN BEDOYA 02/20/2016 10:09 CDT Source: [employer] Document Id: [id number]!40 documented in this encounter Plan of Treatment Not on filedocumented as of this encounter Procedures Procedure Name Priority Date/Time Associated Diagnosis Comme nts URINALYSIS, Routine 02/20/2016 10:30 AM Results for this MIDSTREAM, WITH CDT procedure ar e in CULTURE IF the results INDICATED section. documented in this encounter Results (ABNORMAL) Urinalysis, Midstream, with culture if indicated (02/20/2016 10:30 AM CDT) Analysis Performed At [facility] Time Signature Clarity Clear Clear POWERCHART HXUr Color Colorless Colorless POWERCHART Specific 1.002 POWERCHART [place], POCT, U Comment: Reference Range Specific [place]: 1.000-1.035 pH, POCT, Urine 5.5 <5.0 POWERCHART Comment: Reference Range pH: 5.0-8.0 Protein, Ur, Dip Negative Negative MGDL POWERCHAR T Glucose Negative Negative MGDL POWERCHART Ketones, QL(U) Negative Negative MGDL POWERCHART HXBILIRUBIN Negative Negative POWERCHART HXBLOOD Negative Negative POWERCHART Leukocyte Esterase Negative Negative POWERCHART HXNITRITE Negative Negative POWERCHART Urobilinogen 0.2 0.2 MGDL POWERCHART Comment: Reference Range Urobilinogen: 0.2-1.0 mg/dL HXUR WBC. Occ-3 None Seen HPF POWERCHART HXUR RBC. Occ-2 None Seen HPF POWERCHART Squamous Epithelial 4-10 (A) None Seen HPF POWERC RUIZ Specimen (Source) Anatomical Collection Method Collection Time Re ceived Time Location / / Volume Laterality Urine, First 02/20/2016 10:30 Voided AM CDT Carlos Vang M.D. LAB URINE ORDERABLES Performing Organization Address City/State/ZIP Code Phon e Number POWERCHART documented in this encounter Visit Diagnoses Not on filedocumented in this encounter
--- OUTSIDE RECORDS SUMMARY | 2021-12-10 15:37 | XMS_ITS | Encounter Summary ---
:1980 Author Organization [facility] Address [address] [place] [address] Care Team Providers Name Role Phone Unavailable Primary Care Provider Unavailable Encounter Details Date Type Department Care Team Description 04/04/2015 Hospital Encounter [facility]X [facility] Carlos Vang M.D. 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 0 07/16/2014 IBUPROFEN ORAL ibuprofen 0 07/16/2014 MULTIVITAMIN WITH MINERALS Take 1 capsule by 0 ORAL mouth daily. documented as of this encounter Progress Notes Carlos Vang M.D. - 04/04/2015 7:39 AM CST [id number] CHIEF COMPLAINT/REASON FOR VISIT Chronic headaches and migraines. HISTORY OF PRESENT ILLNESS Jeannine comes today along with her . She is here to discuss ongoing issues with her migraines. She had seen Dr. Khan recently and currently is on Topamax 75 mg 2 times a day. Jeannine says that she initially did not like the side effects from the medication, however she continues to use it. Now she has been tolerating it much better, however the headache continues to persist. The headache was gone for approximately a week and for the last few days she has been noticing some significant headache come back again. She localizes the headache in the same area in her occiput mainly and then radiating all the way to her temporal and forehead area. She has tried some Vicodin in between with significant benefit. Most of the time she states she sleeps through it. She did try Maxalt as well without much benefit. She does have an upcoming visit with her neurologist on 05/14/2015 already planned. She declines any significant new changes during her medical history since her last visit. IMPRESSION/REPORT/PLAN Significant amount of time was spent today discussing management options. She currently is on Topamax and has an appointment planned with Dr. Khan already. I have avoided myself from changing anything today. I did provide her with some Percocet to be used only as needed for breakthrough pain while continuing to use Tylenol or Motrin if needed in between. She agrees with the plan. Total time spent 15 minutes, all of which was [id number] time. Vinod Orr/suly Electronically Signed By: CARLOS VANG MD On: 04/09/2015 12:05 PM Source: [facility] MHSDOLBEYNONRADSYS Document Id: [id number] LL SHEAR OPERATOR documented in this encounter Miscellaneous Notes Miscellaneous - Carlos Vang M.D. - 04/04/2015 8:20 AM CST Ambulatory Patient Summary [facility] [address] [facility] [place] [id number] Visit Information Name: JEANNINE OWENS [facility] Number: [id number] Current Date: 04/04/2015 08:20:22 Physicians Attending Provider: CARLOS VANG MD Primary Care Provider: CARLOS VANG MD ROMAN JEANNINE NEW has been given the following list [...] visit. 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 Pt uses [facility]al[facility]. ibuprofen (ibuprofen) multivitamin with minerals (multivitamin with minerals Multiple Vitamins with Zinc oral capsule) 1 cap, Oral, once a day with magnesium oxyCODONE-acetaminophen (Percocet 5/325 oral tablet) 1 to 2 tablets, Oral, once a day (at bedtime) as needed for Pain No more than 4,000mg acetaminophen/24hrs This is a CHANGE Routed to Printer rizatriptan (Maxalt 10 mg oral tablet) 1 Tablet(s), Oral, as directed as needed for Migraine headache Take 1 tablet at onset of headache. Repeat after two hours if needed. topiramate (Topamax 25 mg oral tablet) 3 Tablet(s), Oral, two times a day Stop Taking the Following Medications: Medication list as of 04-04-15 08:20 Attention: If you have any medications at [...] Electronically Signed By: CARLOS VANG MD Signed On:04-APR-2015 08:20:12 Your Allergies & Intolerances Substance Reaction Symptoms [...] Your Upcoming Appointments Date Time Location Provider 05/14/2015 08:15 [facility] Erin MARTINEZ, Tamara Attention: Contact your local Clinic if further [...] if you dont have one. Go to [email or web address] and click on Create Your Account. Then, follow the directions to complete the online form. Youll be asked for your [facility] number which you can find at the top of this document. Your Goals/Additional instructions: Source: [facility] POWERCHART Document Id: [id number] LL SHEAR OPERATOR Miscellaneous - Carlos Vang M.D. - 04/04/2015 8:20 AM CST Ambulatory Discharge Medication List [address] [id number] Visit Information Name: JEANNINE OWENS [facility] Number: [id number] Visit Date: 04/04/2015 08:20:20 Attending Provider: CARLOS VANG MD Primary Care Provider: CARLOS VANG MD ROMAN JEANNINE NEW has been given the following list [...] visit. 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 Pt uses [facility]. ibuprofen (ibuprofen) multivitamin with minerals (multivitamin with minerals Multiple Vitamins with Zinc oral capsule) 1 cap, Oral, once a day with magnesium oxyCODONE-acetaminophen (Percocet 5/325 oral tablet) 1 to 2 tablets, Oral, once a day (at bedtime) as needed for Pain No more than 4,000mg acetaminophen/24hrs This is a CHANGE Routed to Printer rizatriptan (Maxalt 10 mg oral tablet) 1 Tablet(s), Oral, as directed as needed for Migraine headache Take 1 tablet at onset of headache. Repeat after two hours if needed. topiramate (Topamax 25 mg oral tablet) 3 Tablet(s), Oral, two times a day Stop Taking the Following Medications: Medication list as of 04-04-15 08:20 Attention: If you have any medications at [...] Electronically Signed By: CARLOS VANG MD Signed On:04-APR-2015 08:20:12 Additional Information: Source: [facility] POWERCHART Document Id: [id number] LL SHEAR OPERATOR Miscellaneous - Buren, Shira K, L.PCinthiaNCinthia - 04/04/2015 7:53 AM CST Adult Automobile Radio Repairer Intake/History Adult Automobile Radio Repairer Intake/History Entered On: 04/04/2015 7:55 SCROLL SHEAR OPERATOR Performed On: 04/04/2015 7:53 SCROLL SHEAR OPERATOR by SHIRA GRIMALDO LPN Intake Chief Complaint : CHRISTINE Temperature Core : 36.5 DegC(Converted to: 97.7 DegF) Peripheral Pulse Rate : 82 /min Systolic Blood Pressure : 124 mmHg Diastolic Blood Pressure : 76 mmHg NIBP Mean : 92 mmHg BP Location : Right upper extremity Blood Pressure Cuff Size : Regular Height : 166 cm(Converted to: 5 ft 5 inch(es), 65 inch(es)) SHIRA GRIMALDO LPN - 04/04/2015 7:53 SCROLL SHEAR OPERATOR General Info Languages : Indonesian Is Patient Female and 13-50 no hysterectomy : No SHIRA GRIMALDO LPN - 04/04/2015 7:53 SCROLL SHEAR OPERATOR Subjective Pain Symptoms : Yes SHIRA GRIMALDO LPN - 04/04/2015 7:53 SCROLL SHEAR OPERATOR Pain Scale Pain Scale Verbal 0-10 : Open SHIRA GRIMALDO LPN - 04/04/2015 7:53 SCROLL SHEAR OPERATOR Pain Pain Assessment Grid Pain 1 Location : Head Intensity : 5 SHIRA GRIMALDO LPN - 04/04/2015 7:53 SCROLL SHEAR OPERATOR Dependent Habits Exposure to Tobacco Smoke : Care provider denies smoking in home, Other: NEVER Smoking Status : Never smoker Tobacco 2A : No SHIRA GRIMALDO LPN - 04/04/2015 7:53 SCROLL SHEAR OPERATOR Caffeine Use Grid Caffeine Use : Current Type : Soft drinks Frequency : Weekly Amount : 3 cans per week SHIRA GRIMALDO LPN - 04/04/2015 7:53 SCROLL SHEAR OPERATOR Recreational Drug Use Grid Drug Use : None SHIRA GRIMALDO LPN - 04/04/2015 7:53 SCROLL SHEAR OPERATOR [facility] Document Id: [id number] SCROLL SHEAR OPERATOR!36 LL SHEAR OPERATOR documented in this encounter Plan of Treatment Not on filedocumented as of this encounter Visit Diagnoses Not on filedocumented in this encounter Additional Health Concerns Assessment Noted Time PHQ-9 Depression Total Score: 3 11/29/2014 4:18 PM CDT documented as of this encounter
--- OUTSIDE RECORDS SUMMARY | 2021-12-10 15:37 | XMS_ITS | Encounter Summary ---
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 0 07/16/2014 IBUPROFEN ORAL ibuprofen 0 07/16/2014 MULTIVITAMIN WITH MINERALS Take 1 capsule by 0 ORAL mouth daily. documented as of this encounter Progress Notes Staci Gross D.Abby - 10/31/2015 11:00 AM CDT [id number] CHIEF COMPLAINT/REASON FOR VISIT Abdominal pain. HISTORY OF PRESENT ILLNESS Denice is a 35-year-old G2, P2-0-0-3, who reports today with chief complaint of right sided lower abdominal pain and left breast pain. Regarding her abdominal pain, this has been ongoing for approximately 5 months and is somewhat intermittent in nature. At its worst it is a throbbing, stabbing pain,but it can also be a burning or an aching pain. It is typically on the right lower quadrant with no radiation. She does also report that she experiences some bloating and has had some weight gain sinceApril when she began taking Cymbalta. She denies any dysuria or hematuria. She does report several episodes of urge urinary incontinence over the last couple of weeks, but this is not particularly bothe rsome to her. She denies any symptoms of constipation, diarrhea, blood in the stool or dyschezia. She denies dyspareunia. Denice had a hysterectomy performed via laparoscopic approach in 2014 with bilateral salpingectomy due to continued vaginal bleeding after an ablation. Both ovaries remained intact and she has never had any problems with her ovaries, such as cysts or otherwise. She has a historyof 2 sections and had 1 child with a surrogate for the . Additionally, Dencie reports breast pain on the left breast on the lateral side, which lasts approximately 1 week. This occurred roughly 1 month ago. During that week it was quite significant and at this time it is more of just a dull ache or an awareness of the discomfort. She feels that with self breast exams, the tissue on the outer side of that breast is somewhat more dense or thickened. Denice reports no skin changes or nipple discharge. She denies any personal history of breast imaging or biopsy. ALLERGIES Toradol. Tramadol. MEDICATIONS Azelaic acid 20% topical cream. Cymbalta 20 mg daily. Dextroamphetamine - amphetamine 5 mg morning and noon. Dihydroergotamine. Ibuprofen. Indomethacin. Multivitamin. Ondansetron. Tylenol. SOCIAL HISTORY Negative for tobacco. Reports rare alcohol intake. PAST MEDICAL/SURGICAL HISTORY PAST MEDICAL HISTORY: ADHD, anxiety, depression, post traumatic stress disorder, flushing, headache,cervicogenic, myofascial cervical neck pain, and thoracic pain, palpitations and tachycardia. PAST SURGICAL HISTORY: Salpingectomy with total laparoscopic hysterectomy July 12, 2014, appendectomy, tubal ligation, section x2 and endometrial ablation. FAMILY HISTORY She reports a maternal aunt with breast cancer diagnosed in her 50s, maternal grandmother diagnosed with breast cancer in her late 30s and at age 50, and her mother has had multiple breast biopsies but no cancer. SOCIAL HISTORY Negative for tobacco. PHYSICAL EXAMINATION VITAL SIGNS: Blood pressure 100/70, height 166 cm, weight 59.8 kg, BMI 21.7. GENERAL: No apparent distress. Alert and oriented x3. Denice does have some flushing of the skin around the neck and face during discussion. HEART: Regular rate and rhythm without murmurs, rubs, or gallops. LUNGS: Clear to auscultation bilaterally with unlabored respirations. BREASTS: Symmetry is noted bilaterally. There is no skin changes noted nor dimpling. There are no masses palpated. She does have somewhat fibrocystic type tissue. No discharge is elicited from the nipple. ABDOMEN: Soft, nondistended, nontender to palpation although she does report that there is just kindof a pressure sensation with palpation in the right lower quadrant. PELVIC: External genitalia are within normal limits. On bimanual exam, there is no tenderness to palpation over the bladder. Vaginal cuff is intact. There is no point tenderness, but again some awareness or pressure type feeling on the right aspect of the vaginal cuff. Ovaries are not specifically palpated. IMPRESSION/REPORT/PLAN 1. Right sided pelvic pain. To further evaluate Denice's ovaries, we have ordered an ultrasound ofthe pelvis. We have discussed that pelvic pain could be from multiple etiologies and we will continue to investigate for her. 2. Left breast pain. While clinical breast exam shows no abnormalities, ultrasound has been ordered for further evaluation to ensure that there are no pathologic reasons for Denice's breast pain. Approximately 20 minutes were spent on this visit, with majority being face to face counseling time. Staci Gross D.O./suly Electronically Signed By: STACI GROSS DO On: 11/29/2015 07:26 AM Modified by and Electronically Signed by: STACI GROSS DO On: 11/29/2015 07:26 AM Source: [facility] MHSDOLBEYNONRADSYS Document Id: [id number] documented in this encounter Miscellaneous Notes Miscellaneous - Nida Hassan LCinthiaP.N. - 10/31/2015 11:35 AM CDT Spa Concierge Documentation Spa Concierge Documentation Entered On: 10/31/2015 11:36 CDT Performed On: 10/31/2015 11:35 CDT by NIDA HASSAN LPN Spa Concierge Documentation Exam/Procedure Performed : Breast and bimanual exam.- CD Spa Concierge Present : Yes CD Spa Concierge Name : Kristin Hassan LPN Present in Room During Exam/Procedure : Alone NIDA HASSAN LPN - 10/31/2015 11:35 CDT [facility] Document Id: [id number] CDT!6 Miscellaneous - Nida Hassan LCinthiaP.N. 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 Patient also reports Left breast pain.- LMP Date : Hysterectomy Systolic Blood Pressure : 100 mmHg Diastolic Blood Pressure : 70 mmHg NIBP Mean : 80 mmHg BP Location : Right upper extremity Blood Pressure Cuff Size : Large Height : 166 cm(Converted to: 5 ft 5 inch(es), 65 inch(es)) Actual Weight : 59.8 kg(Converted to: 131 lb 13 oz) Dosing Weight Clinic : 59.8 kg Clinic BSA : 1.66 Body Mass Index : 21.7 kg/m2 NIDA HASSAN LPN - 10/31/2015 11:06 CDT General Info Information Given By : Patient Languages : Portuguese Is Patient Female and 13-50 no hysterectomy : No NIDA HASSAN LPN - 10/31/2015 11:06 CDT Subjective Pain Symptoms : Yes NIDA HASSAN ELEAZAR - 10/31/2015 11:06 CDT Pain Scale Pain Scale Verbal 0-10 : Open NIDA HASSAN ELEAZAR 10/31/2015 11:06 CDT Pain Pain Assessment Grid Pain 1 Pain 2 Location : Abdomen Breast Laterality : Right Left Intensity : 8 4 THEO NIDA Hewitt LPN 10/31/2015 11:06 CDT PREMLOC NIDA Hewitt LPN 10/31/2015 11:06 CDT Dependent Habits Exposure to Tobacco Smoke : Care provider denies smoking in home, Other: NEVER Smoking Status : Never smoker Tobacco 2A : No Tobacco Use/Currently Using : No Tobacco Use/Last 30 Days : No Tobacco Use/Last 12 months : No Alcohol Use : Yes RASHEEDA NIDA Hewitt LPN 10/31/2015 11:06 CDT Caffeine Use Grid Caffeine Use : Current Type : Soft drinks Frequency : Weekly Amount : 3 cans per week THEO NIDA Hewitt LPN 10/31/2015 11:06 CDT Recreational Drug Use Grid Drug Use : None DANIELLOC NIDA Hewitt LPN 10/31/2015 11:06 CDT Allergy Latex Reaction : No Latex Hives/Itch : No Latex Congestion/Eye Irr/Breathing : No Latex Symptom Progression : No Latex Previous Test : No THEO NIDA Hewitt LPN 10/31/2015 11:06 CDT (As Of: 10/31/2015 11:09:06 CDT) Allergies (Active) Toradol IV/IM Estimated Onset Date: Unspecified ; Reactions: pruritis ; Created By: KAYLYN GOULD CMA; Reaction Status: Active ; Category: Drug ; Substance: Toradol IV/IM ; Type: Allergy ; Severity: Severe ; Updated By: KAYLYN GOULD CMA; Reviewed Date: 10/31/2015 11:05 CDT traMADol Estimated Onset Date: Unspecified ; Reactions: nausea, dizzy ; Created By: NATALEE CARLSON MD; Reaction Status: Active ; Category: Drug ; Substance: traMADol ; Type: Allergy ; Updated By: NATALEE CARLSON MD; Reviewed Date: 10/31/2015 11:05 CDT Source: [facility]ART Document Id: [id number] CDT!55 documented in this encounter Plan of Treatment Not on filedocumented as of this encounter Visit Diagnoses Not on filedocumented in this encounter Additional Health Concerns Assessment Noted Time PHQ-9 Depression Total Score: 2 07/10/2015 3:55 PM CDT documented as of this encounter
--- OUTSIDE RECORDS SUMMARY | 2021-12-10 15:37 | XMS_ITS | Encounter Summary ---
:1980 Author Organization [facility] Address [address] [place] [address] Care Team Providers Name Role Phone Unavailable Primary Care Provider Unavailable Encounter Details Date Type Department Care Team Description 10/24/2014 Hospital Encounter HX [facility] Dominga Foster M.D. 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 0 07/16/2014 IBUPROFEN ORAL ibuprofen 0 07/16/2014 MULTIVITAMIN WITH MINERALS Take 1 capsule by 0 ORAL mouth daily. documented as of this encounter Progress Notes Dominga Foster M.D. - 10/24/2014 1:24 PM CDT [id number] Denice clark in Den[place] returns for acupuncture treatment. She feels much better. She feels 90% improvement for her pain. She has a right neck and headache pain. At present time she rated the pain joao 2 on a scale 0 to 10. At its worst, it was 4 on a scale 0 to 10. and the severe pain was less frequent. No other concern in other systems. PHYSICAL EXAMINATION GENERAL: The patient is a 34 year female, not in distress. MENTAL STATUS: Oriented to person, place. Appropriate mood and affect. Ambulation without assist device. NECK: The tightness of the right cervical paraspinal, tenderness in the right suboccipital region ismuch improved. There is mild trigger point noted in the right upper trapezius muscle. There is no skin lesion noted. IMPRESSION/REPORT/PLAN Chronic right posterior neck and shoulder pain. Cervicogenic headache pain improving with acupuncture treatment. Pain level rated 2 to 4 on a scale 0 to 10. She wishes to go ahead with acupuncture treatment. Written informed consent was obtained. PROCEDURE Patient was in the prone position. Skin was prepped with the ChloraPrep preparation. Acupuncture wascarried out as follows: 1. Principal Edwards treatment using points, BL 60, KI 3, KI 10 SI 3 HT 7 bilaterally with electrical stimulation from KI 3 to KI10, duration 10 minutes. 2. Si Mandujano Diaz (star) treatment with electrical stimulation in a glynn chain stimulation at 15 hertz stimulation, duration 15 minutes. 3. Local neck treatment using points, GV 15, GV 16, right GB 20, BL 10, GV 20 without electrical stimulation. Duration 15 minutes. Patient tolerated procedure well. Dominga Foster M.D./suly Electronically Signed By: DOMINGA FOSTER MD On: 10/25/2014 12:32 PM Modified by and Electronically Signed by: DOMINGA FOSTER MD On: 10/25/2014 12:32 PM Source: [facility] MHSDOLBEYNONRADSYS Document Id: [id number] documented in this encounter Miscellaneous Notes Miscellaneous - Radha Sweeney L.P.N. 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 Systolic Blood Pressure : 108 mmHg Diastolic Blood Pressure : 78 mmHg NIBP Mean : 88 mmHg BP Location : Right upper extremity Blood Pressure Cuff Size : Regular Height : 166 cm(Converted to: 5 ft 5 inch(es), 65 inch(es)) RADHA SWEENEY LPN - 10/24/2014 13:33 CDT General Info Information Given By : Patient Languages : Khmer Is Patient Female and 13-50 no hysterectomy : No RADHA SWEENEY LPN - 10/24/2014 13:33 CDT Subjective Pain Symptoms : Yes RADHA SWEENEY LPN - 10/24/2014 13:33 CDT Pain Scale Pain Scale Verbal 0-10 : Open RADHA SWEENEY LPN - 10/24/2014 13:33 CDT Pain Pain Assessment Grid Pain 1 Pain 2 Location : Head Neck Laterality : Right Right Intensity : 2 2 RADHA SWEENEY LPN - 10/24/2014 13:33 CDT RADHA SWEENEY LPN - 10/24/2014 13:33 CDT Dependent Habits Tobacco Use/Currently Using : No Exposure to Tobacco Smoke : Care provider denies smoking in home Smoking Status : Never smoker RADHA SWEENEY LPN - 10/24/2014 13:33 CDT Caffeine Use Grid Caffeine Use : Current Type : Soft drinks Frequency : Weekly Amount : 3 cans per week RADHA SWEENEY LPN - 10/24/2014 13:33 CDT Recreational Drug Use Grid Drug Use : None RADHA SWEENEY LPN - 10/24/2014 13:33 CDT [facility] Document Id: [id number] CDT!40 documented in this encounter Plan of Treatment Not on filedocumented as of this encounter Visit Diagnoses Not on filedocumented in this encounter Additional Health Concerns Assessment Noted Time PHQ-9 Depression Total Score: 2 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
--- OUTSIDE RECORDS SUMMARY | 2021-12-10 15:37 | XMS_ITS | Encounter Summary ---
:1980 Author Organization [facility] Address [address] [place] [address] Care Team Providers Name Role Phone Unavailable Primary Care Provider Unavailable Encounter Details Date Type Department Care Team Description 05/14/2015 Hospital Encounter HX [facility] Tamara Pfeiffer M .D. [address] [place] [address] (Wo rk) Social History Tobacco Use Types Packs/Day Years Used Date Smoking Tobacco: Never Assessed Sex Assigned at Date Recorded Female 04/15/2017 7:38 PM BEAUTY THERAPIST documented as of this encounter Last Filed Vital Signs Vital Sign Reading Time Taken Comments Blood Pressure 120/80 05/14/2015 8:14 AM BEAUTY THERAPIST Pulse 76 05/14/2015 8:14 AM BEAUTY THERAPIST Temperature - - Respiratory Rate - - Oxygen Saturation - - Inhaled Oxygen Concentration - - Weight 58.7 kg (129 lb 6.6 oz) 05/14/2015 8:14 AM BEAUTY THERAPIST Height 166 cm (5' 5.35) 05/14/2015 8:14 AM BEAUTY THERAPIST Body Mass Index 21.3 05/14/2015 8:14 AM BEAUTY THERAPIST documented in this encounter Medications at Time of Discharge Medication Sig Dispensed Refills Start Date End Date ACETAMINOPHEN ORAL Take by mouth. 0 07/16/2014 IBUPROFEN ORAL ibuprofen 0 07/16/2014 MULTIVITAMIN WITH MINERALS Take 1 capsule by 0 ORAL mouth daily. documented as of this encounter Progress Notes Tamara Pfeiffer M.D. - 05/14/2015 8:09 AM CST [id number] CHIEF COMPLAINT/REASON FOR VISIT Headaches. HISTORY OF PRESENT ILLNESS Denice is a 34-year-old young lady who was last seen by me in March 10, presents to the clinic with worsening headaches. During her last visit, patient was started on Topamax and titrated up to 75 mg 2 times daily. The patient reports that she is not tolerating the medication, secondary to excessive sedation and drowsiness. Subsequently was seen by her primary and was given as needed Percocet until she follows up with me. Patient reports that normally her headaches are about 2 to 3 per month but in the last few months has increased about 3 to 4 per week. Did try Maxalt as well for abortive but did not work. 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 Sleep: Poor currently, only gets about 4 to 5 hours of sleep. Depression: Denies. Bowel and bladder: Stable. Speech and swallow: Stable. Diagnostic tests done/Treatments tried: No changes. PAST MEDICAL/SURGICAL HISTORY Reviewed and unchanged as per the medical record. SOCIAL HISTORY Unchanged. FAMILY HISTORY Unchanged. SYSTEMS REVIEW All systems were reviewed and were negative unless noted here or in the HPI. PHYSICAL EXAMINATION VITALS: Her blood pressure is 120/80, pulse 76, weight 58.7. CARDIOVASCULAR: S1, S2 positive, within normal limits. RESPIRATORY: Normal breath sounds. NEUROLOGICAL EXAMINATION: The patient is well-dressed, well nourished and was an extreme pleasure totalk with. MENTAL STATUS: Alert and oriented x 3. Cranial nerves normal. Fund of knowledge is normal. Recent and remote memory are intact. Attention and concentration are normal. Speech and language are normal. CRANIAL NERVES: 2: Visual holman are full to confrontation. 3, 4, 6: Pupils are equal, and reactive to light and extraocular movements are full and conjugate. No nystagmus. 5: Facial sensation and masseter strength is normal and symmetrical. 7: Facial movements are normal and symmetrical. Eye closure is normal and symmetrical. Cheek puff isnormal and there is no facial droop. 8: Hearing clinically intact bilaterally. 9: Palate elevates symmetrically. No uvular deviation. 11: Shoulder shrug is strong and symmetrical. SCM/Trap normal. 12: Tongue protrudes in the midline and there is no tongue atrophy or fasciculations. EYES: Ophthalmoscopic examination of the optic disks and posterior elements reveals sharp disk margins, normal vessels and pigmentation. No frontal release signs. Frontal lesions: None. MUSCULOSKELETAL: Handedness: Right. Neck strength: Supple MUSCLE TONE: Normal. Muscle bulk is normal. Muscle strength is as follows: SENSORY: Intact on LT,VIB, Proprioception, Pinprick and temp bilaterally. CEREBELLAR: Normal [id number] and [id number]-[id number]. GAIT AND STATION: Tandem walking normal. Negative Romberg's. Able to walk on heels and toes. DIAGNOSTICS Past labs and imaging reviewed and discussed with the patient. IMPRESSION/REPORT/PLAN Denice is a 34-year-old young individual presents with regard to headaches. DIAGNOSIS: Chronic headaches and migraines without aura. PLAN: With regard to headaches, since she has not tolerated Topamax we will start her on indomethacin. Patient does report that most of her headaches on the right side are throbbing in nature. Denies any reddening of her eyes but does report occasionally feeling nauseous, rarely vomits and is occasionally sensitive to light and sound. We will start her on indomethacin 25 mg and slowly titrate to maximum of 50 mg 3 times a day if tolerated. In addition for abortive will start the patient on as neededMidrin. In addition, since patient is also complaining of some tenderness over the right scalp, patient wasgiven occipital nerve block. Will follow up in 3 months with regard to this. If this intervention does not work then other options would be Cymbalta or Botox. The plan of care discussed. Medications reconciled. Patient acknowledged. The plan of care was printed out, medications reconciled and discussed with patient at length and counselled and patient acknowledged understanding of the treatment and plan of care. Weic-oo-iemi was 28 minute of which the majority was spent in counseling regarding the diagnosis andaddressing concerns and questions. An additional 10 minutes was spent in doing the occipital nerve block which will be dictated separately. Tamara Pfeiffer M.D./suly Electronically Signed By: TAMARA PFEIFFER MD On: 05/17/2015 03:52 PM Modified by and Electronically Signed by: TAMARA PFEIFFER MD On: 05/17/2015 03:52 PM [facility] Document Id: [id number] TY THERAPIST documented in this encounter Procedure Notes Tamara Pfeiffer M.D. - 05/14/2015 8:48 AM CST Migraines PROCEDURAL PAUSE Procedural pause conducted to verify: correct patient identity, procedure to be performed and as applicable, correct side and site, correct patient position, and availability of implants, special equipment or special requirements PROCEDURE NOTE The occipital areas of point tenderness were identified on the right side. Used universal protocol. The rationale, risks, and benefits occipital injection in headaches were reviewed with the patient again. She has decided to proceed with the injections. After marking with pen and ink and prepped with Betadine and alcohol, skin wheal was made with 1 mL of bupivacaine and then a mixture of 3 mL bupivacaine and i mL of Kenalog 40 was injected in right side. She had complete relief of his space pressure and neck tenderness. Tolerated the injection well. INFORMED CONSENT Discussed the risks, benefits, alternatives, and the necessity of other members of the healthcare team participating in the procedure. All questions answered and consent given. IMPRESSION/REPORT/PLAN Chronic headaches with occipital neuralgia . Electronically Signed By: TAMARA PFEIFFER MD On: 05/14/2015 08:49 AM Source: [facility] POWERCHART Document Id: [id number] TY THERAPIST documented in this encounter Miscellaneous Notes Miscellaneous - Bettye Reynoso RCinthiaN. - 05/14/2015 9:22 AM CST *General Message Document Contains Addenda Addendum by BETTYE REYNOSO RN on 14 May 2015 09:25:47 BEAUTY THERAPIST pharmacy calling in error, disregard this call. From: BETTYE REYNOSO RN ([facility]) To: [facility]; Sent: 05/14/2015 09:22:49 BEAUTY THERAPIST Subject: *General Message Source: [facility] POWERCHART Document Id: [id number] Miscellaneous - Tamara Pfeiffer M.D. - 05/14/2015 8:39 AM BEAUTY THERAPIST Ambulatory Patient Summary Jarod [facility] [address] [place] [id number] Visit Information Name: ANDREW OWENSHUGH GAYTANN [facility] Number: [id number] Current Date: 05/14/2015 08:39:13 Physicians Attending Provider: TAMARA PFEIFFER MD Primary Care Provider: YOBANY VANG MD DENICE OWENS has been given [...] visit. 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 ibuprofen (ibuprofen) indomethacin (indomethacin 25 mg oral capsule) 2 cap, Oral, three times a day as needed for Pain Take with food New Routed to [place] [address] [facility] [place] [id number] isometheptene/dichloralphenazon/acetaminophen (Midrin oral capsule) See Instructions 2 capsules oncefollowed by 1 capsule every 2 hour up to 5 capsules per 24 hour period New Routed to [facility] multivitamin with minerals (multivitamin with minerals Multiple Vitamins with Zinc oral capsule) 1 cap, Oral, once a day with magnesium oxyCODONE-acetaminophen (Percocet 5/325 oral tablet) 1 to 2 tablets, Oral, once a day (at bedtime) as needed for Pain No more than 4,000mg acetaminophen/24hrs Stop Taking the Following Medications: Medication list as of 05-14-15 08:39 Attention: If you have any medications at home that are not on this list, DO NOT take them until youcontact your provider for clarification. Give a copy of your medication list to your primary care provider. Update your medication list any time medications or doses are changed and carry your medication list at all times in case of emergency. Electronically Signed By: TAMARA PFEIFFER MD Signed On:14-MAY-2015 08:39:05 Your Allergies & Intolerances Substance Reaction Symptoms [...] if you dont have one. Go to [email or web address] and click on Create Your Account. Then, follow the directions to complete the online form. Youll be asked for your [facility] number which you can find at the top of this document. Your Goals/Additional instructions: Source: [facility] POWERCHART Document Id: [id number] TY THERAPIST Miscellaneous - Tamara Pfeiffer M.D. - 05/14/2015 8:39 AM BEAUTY THERAPIST Ambulatory Discharge Medication List Jar[facility] [address] [place] [id number] Visit Information Name: ROMAN DENICE NEW [facility] Number: [id number] Visit Date: 05/14/2015 08:39:12 Attending Provider: TAMARA PFEIFFER MD Primary Care Provider: YOBANY VANG MD DENICE OWENS SHAQ has been given the following list of [...] visit. 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 ibuprofen (ibuprofen) indomethacin (indomethacin 25 mg oral capsule) 2 cap, Oral, three times a day as needed for Pain Take with food New Routed to [address] [place] [id number] isometheptene/dichloralphenazon/acetaminophen (Midrin oral capsule) See Instructions 2 capsules oncefollowed by 1 capsule every 2 hour up to 5 capsules per 24 hour period New Routed to [facility] multivitamin with minerals (multivitamin with minerals Multiple Vitamins with Zinc oral capsule) 1 cap, Oral, once a day with magnesium oxyCODONE-acetaminophen (Percocet 5/325 oral tablet) 1 to 2 tablets, Oral, once a day (at bedtime) as needed for Pain No more than 4,000mg acetaminophen/24hrs Stop Taking the Following Medications: Medication list as of 05-14-15 08:39 Attention: If you have any medications at home that are not on this list, DO NOT take them until youcontact your provider for clarification. Give a copy of your medication list to your primary care provider. Update your medication list any time medications or doses are changed and carry your medication list at all times in case of emergency. Electronically Signed By: TAMARA PFEIFFER MD Signed On:14-MAY-2015 08:39:05 Additional Information: Source: [facility] POWERCHART Document Id: [id number] TY THERAPIST Miscellaneous - Charity Johnson, L.P.N. 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 Intake/History Entered On: 05/14/2015 8:16 BEAUTY THERAPIST Performed On: 05/14/2015 8:14 BEAUTY THERAPIST by CHARITY JOHNSON LPN Intake Chief Complaint : H/A recheck Peripheral Pulse Rate : 76 /min Heart Rhythm : Regular Systolic Blood Pressure : 120 mmHg Diastolic Blood Pressure : 80 mmHg NIBP Mean : 93 mmHg BP Location : Right upper extremity Blood Pressure Cuff Size : Regular Height : 166 cm(Converted to: 5 ft 5 inch(es), 65 inch(es)) Actual Weight : 58.7 kg(Converted to: 129 lb 7 oz) Weight Source : Standing scale Dosing Weight Clinic : 58.7 kg Clinic BSA : 1.65 Body Mass Index : 21.3 kg/m2 CHARITY JOHNSON LPN - 05/14/2015 8:14 BEAUTY THERAPIST General Info Information Given By : Patient Languages : Macedonian Is Patient Female and 13-50 no hysterectomy : No CHARITY JOHNSON LPN - 05/14/2015 8:14 BEAUTY THERAPIST Subjective Pain Symptoms : No CHARITY JOHNSON LPN - 05/14/2015 8:14 BEAUTY THERAPIST Dependent Habits Exposure to Tobacco Smoke : Care provider denies smoking in home, Other: NEVER Smoking Status : Never smoker Tobacco 2A : No Tobacco Use/Currently Using : No Tobacco Use/Last 30 Days : No Tobacco Use/Last 12 months : No CHARITY JOHNSON LPN - 05/14/2015 8:14 BEAUTY THERAPIST Caffeine Use Grid Caffeine Use : Current Type : Soft drinks Frequency : Weekly Amount : 3 cans per week CHARITY JOHNSON LPN - 05/14/2015 8:14 BEAUTY THERAPIST Recreational Drug Use Grid Drug Use : None CHARITY JOHNSON LPN - 05/14/2015 8:14 BEAUTY THERAPIST Source: [facility] [employer] Document Id: [id number] BEAUTY THERAPIST!38 TY THERAPIST documented in this encounter Plan of Treatment Not on filedocumented as of this encounter Visit Diagnoses Not on filedocumented in this encounter Additional Health Concerns Assessment Noted Time PHQ-9 Depression Total Score: 3 11/29/2014 4:18 PM CDT documented as of this encounter
--- OUTSIDE RECORDS SUMMARY | 2021-12-10 15:37 | XMS_ITS | Encounter Summary ---
:1980 Author Organization [facility] Address [address] [place] [address] Care Team Providers Name Role Phone Unavailable Primary Care Provider Unavailable Encounter Details Date Type Department Care Team Description 10/08/2015 Hospital Encounter [facility]X [facility] Tamara Pfeiffer M .D. 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 0 07/16/2014 IBUPROFEN ORAL ibuprofen 0 07/16/2014 MULTIVITAMIN WITH MINERALS Take 1 capsule by 0 ORAL mouth daily. documented as of this encounter Progress Notes Tamara Pfeiffer M.D. - 10/08/2015 8:04 AM CDT [id number] CHIEF COMPLAINT/REASON FOR VISIT Headaches. HISTORY OF PRESENT ILLNESS Ms. Galdamez is a 35-year-old young lady who presents with regard to headaches. Patient was last seen in July 2015. Started on Cymbalta. Patient is currently on Cymbalta 40 mg and reports that her headaches have significantly gone down. Reports that since she last saw me, she has had only 2 headachesand was able to break it with an ibuprofen and Tylenol. Does not take her Vicodin. During one of those episodes, did take indomethacin and seems to have helped out with the headaches. Sleep overall is good. Denies any depression. Bowel, bladder, speech, and swallow stable. Weight feels like she has put on some weight since she last saw me. Appetite and exercise pretty good. PAST MEDICAL/SURGICAL HISTORY Unchanged. SOCIAL HISTORY Unchanged. Currently works at [employer] and also the [employer] as an [employer] 1 weekend a month. ALLERGIES Reviewed and reconciled. MEDICATIONS Reviewed and reconciled. FAMILY HISTORY Sister and mom both have supraventricular tachycardia and her dad has hypertension. SYSTEMS REVIEW All systems are reviewed and were negative unless stated in HPI. PHYSICAL EXAMINATION VITAL SIGNS: Blood pressure noted to be stable 120/62, pulse 60 weight 60. CARDIOVASCULAR: S1, S2 positive. RESPIRATORY: Normal breath sounds NEUROLOGICAL EXAMINATION: Patient is well dressed, well nourished, extreme pleasure to talk with. MENTAL STATUS: Alert and oriented x 3. Fund of knowledge is normal. Recent and [...] vessels and pigmentation. No frontal release signs. MUSCULOSKELETAL: Handedness: Right. MUSCLE TONE: Normal. Muscle bulk is normal. Muscle strength is as follows: SENSORY: Intact on LT,VIB, Proprioception, Pinprick and temp bilaterally. GAIT: Normal. IMPRESSION/REPORT/PLAN Ms. Galdamez is a 35-year-old young lady presents to the clinic with regard to her headaches. DIAGNOSIS: Chronic headaches and migraines without aura. With regard to the recommended, continue the Cymbalta. Indomethacin as needed. For abortive treatment, will start the patient on dihydroergotamine nasal spray since patient does not tolerate triptans. The side effects of this medication were discussed at length, including chest pain, hypertension, etc. I advised the patient not to use more than4 sprays in a day and not more than 6 sprays in a week. Will follow up as needed. Other diagnoses include performance anxiety . Advised the patient if her occipital neuralgia were to worsen in the future, then to come back for an occipital nerve block. The plan of care discussed. Medications were reconciled. Patient acknowledged understanding. Tamara Pfeiffer M.D./suly Electronically Signed By: TAMARA PFEIFFER MD On: 10/09/2015 08:09 AM Modified by and Electronically Signed by: TAMARA PFEIFFER MD On: 10/09/2015 08:09 AM Source: [facility] MHSDOLBEYNONRADSYS Document Id: [id number] documented in this encounter Miscellaneous Notes Miscellaneous - Emily Cortez R.N. - 12/11/2015 10:13 AM CDT *General Message Document Contains Addenda Addendum by YESENIA WHITING on December 12, 2015 11:40:39 CDT Patient is scheduled for 8:15am Wednesday12/16/15. Addendum by NANCI RUDOLPH on December 11, 2015 15:32:54 CDT From: NANCI RUDOLPH ([place] Neurology Nurse) To: [facility] Cardiology/Neurology Aerial Hurricane Hunter; Sent: 12/11/2015 15:32:54 CDT Subject: RE: *General Message Please call patient and Dr. Pressley will see her during the next available noon hour on Tuesdays Addendum by TAMARA PFEIFFER MD on December 11, 2015 12:07:04 CDT From: TAMARA PFEIFFER MD To: [place] Neurology Nurse; Specialty Queen'S Counsel; Sent: 12/11/2015 12:07:04 CDT Subject: RE: *General Message Thats fine with me...try to fir her in anywhere(lunch time) except lunch time on Wednesday... Addendum by CHANTEL ORR on December 11, 2015 11:40:25 CDT From: CHANTEL ORR ( Specialty Queen'S Counsel) To: TAMARA PFEIFFER MD; [place] Neurology Nurse; Sent: 12/11/2015 11:40:25 CDT Subject: RE: *General Message offered appts in [place] for and wednesday and neither day or time worked for her. wondering ifho could be seen next week? Addendum by WONG DOW LPN on December 11, 2015 11:17:31 CDT From: WONG DOW LPN ( Neurology Nurse) To: Specialty Queen'S Counsel; Sent: 12/11/2015 11:17:31 CDT Subject: FW: *General Message Addendum by WONG DOW LPN on December 11, 2015 11:17:[address] Pressley message below and call pt to schedule a 30 min-thank you. Addendum by TAMARA PFEIFFER MD on December 11, 2015 10:39:06 CDT From: TAMARA PFEIFFER MD To: [facility] Neurology Nurse; Sent: 12/11/2015 10:39:06 CDT Subject: RE: *General Message we can do it here in [place] if she wants to drive up...anytime tomorroow or Wednesday during lunch time...thx From: EMILY CORTEZ RN ([place] Specialty Nurse Line) To: TAMARA PFEIFFER MD; Cc: [place] Neurology Nurse; Sent: 12/11/2015 10:13:59 CDT Subject: *General Message Pt. calling, she was last seen for headaches 10-08-15. States she was told she could call back to schedule occipital nerve block if needed. She is aware that Dr. Pressley is out until 12-16-15. I told her thatI would put message in and request neurology nurse call her back for further assistance. Thanks. Source: [facility] POWERCHART Document Id: [id number] Electronically signed by Zac [facility] Director Regulatory Affairs [id number] at 09/19/2016 8:45 PM CDT Miscellaneous - Bettye Reynoso RCinthiaN. - 10/16/2015 3:14 PM CDT *General Message Document Contains Addenda Addendum by BETTYE REYNOSO RN on October 18, 2015 16:01:01 CDT Noted Addendum by NANCI RUDOLPH on October 18, 2015 15:54:54 CDT From: NANCI RUDOLPH ([place] Neurology Nurse) To: [place] Specialty Nurse Line; Sent: 10/18/2015 15:54:54 CDT Subject: RE: Prior auth status Receive information from [employer] that Dihydroergotamine Mesylate was approved . [email or web address] Addendum by BETTYE REYNOSO RN on October 16, 2015 15:21:02 CDT From: BETTYE REYNOSO RN ([place] Specialty Nurse Line) To: [place] Neurology Nurse; Sent: 10/16/2015 15:21:02 CDT Subject: Prior auth status Caller aware of neurology nurse return to office 10/17/15. Mariajose, from [facility] [employer] [phone]. Calling regarding prior auth for Dihydroergotamine Nasal [place]. Mariajose was informed per note in chart that prior auth was faxed on 10/14/15. Mariajose states she checked covermymeds and prior auth is in there, but not sent to the plan and that pts insurance hasn't received anything either. Please update Mariajose on status of prior auth. From: BETTYE REYNOSO RN ([place] Specialty Nurse Line) To: [place] Specialty Nurse Line; Sent: 10/16/2015 15:14:41 CDT Subject: *General Message Source: [facility] [employer]Way Document Id: [id number] Electronically signed by [employer]version, [facility] Director Regulatory Affairs [id number] at 09/19/2016 8:45 PM CDT Miscellaneous - Tamara Pfeiffer M.D. - 10/08/2015 8:36 AM CDT Ambulatory Patient Summary [address] [id number] Visit Information Name: DENICE [facility] Number: [id number] Current Date: 10/08/2015 08:36:12 Physicians Attending Provider: TAMARA PFEIFFER MD Primary [...] visit. 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 DULoxetine (Cymbalta 20 mg oral delayed release capsule) 1 cap, Oral, once a day If tolerated increase to 40mg after a week *HYDROcodone-acetaminophen (HYDROcodone-acetaminophen 5 mg-325 mg oral tablet) 1 Tablet(s), Oral, every 8 hours as needed for Pain No more than 4,000mg acetaminophen/24hrs ibuprofen (ibuprofen) indomethacin (indomethacin 25 mg oral capsule) 2 cap, Oral, three times a day as needed for Pain Take with food multivitamin with minerals (multivitamin with minerals Multiple Vitamins with Zinc oral capsule) 1 cap, Oral, once a day with magnesium ondansetron (ondansetron 4 mg oral tablet, disintegrating) 1 Tablet(s), Oral, four times a day as needed for Nausea * You have let us know that you are not taking this medication as listed. Please talk with your primary care provider or the health care provider who prescribed the medication as soon as possible. Stop Taking the Following Medications: propranolol (propranolol 20 mg oral tablet) Medication list as of 10-08-15 08:36 Attention: If you have any medications at [...] Electronically Signed By: TAMARA PFEIFFER MD Signed On:08-OCT-2015 08:36:08 Your Allergies & Intolerances Substance Reaction Symptoms [...] if you dont have one. Go to [email or web address] and click on Create Your Account. Then, follow the directions to complete the online form. Youll be asked for your [facility] number which you can find at the top of this document. Your Goals/Additional instructions: Source: [facility] POWERCHART Document Id: [id number] Miscellaneous - Tamara Pfeiffer M.D. - 10/08/2015 8:36 AM CDT Ambulatory Discharge Medication List [address] [id number] Visit Information Name: DENICE OW[facility] Number: [id number] Visit Date: 10/08/2015 08:36:11 Attending Provider: TAMARA PFEIFFER MD Primary Care [...] visit. 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 DULoxetine (Cymbalta 20 mg oral delayed release capsule) 1 cap, Oral, once a day If tolerated increase to 40mg after a week *HYDROcodone-acetaminophen (HYDROcodone-acetaminophen 5 mg-325 mg oral tablet) 1 Tablet(s), Oral, every 8 hours as needed for Pain No more than 4,000mg acetaminophen/24hrs ibuprofen (ibuprofen) indomethacin (indomethacin 25 mg oral capsule) 2 cap, Oral, three times a day as needed for Pain Take with food multivitamin with minerals (multivitamin with minerals Multiple Vitamins with Zinc oral capsule) 1 cap, Oral, once a day with magnesium ondansetron (ondansetron 4 mg oral tablet, disintegrating) 1 Tablet(s), Oral, four times a day as needed for Nausea * You have let us know that you are not taking this medication as listed. Please talk with your primary care provider or the health care provider who prescribed the medication as soon as possible. Stop Taking the Following Medications: propranolol (propranolol 20 mg oral tablet) Medication list as of 10-08-15 08:36 Attention: If you have any medications at [...] Electronically Signed By: TAMARA PFEIFFER MD Signed On:08-OCT-2015 08:36:08 Additional Information: Source: [facility] POWERCHART Document Id: [id number] Miscellaneous - Nanci Rudolph, L.P.N. 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 Entered On: 10/08/2015 8:23 CDT Performed On: 10/08/2015 8:21 CDT by NANCI RUDOLPH Intake Chief Complaint : Recheck Occipital Block Peripheral Pulse Rate : 60 /min Systolic Blood Pressure : 110 mmHg Diastolic Blood Pressure : 62 mmHg NIBP Mean : 78 mmHg BP Location : Left upper extremity Blood Pressure Cuff Size : Large Height : 166 cm(Converted to: 5 ft 5 inch(es), 65 inch(es)) Actual Weight : 60.0 kg(Converted to: 132 lb 4 oz) Dosing Weight Clinic : 60 kg Clinic BSA : 1.66 Body Mass Index : 21.77 kg/m2 NANCI RUDOLPH - 10/08/2015 8:21 CDT General Info Information Given By : Patient Languages : Guinean Is Patient Female and 13-50 no hysterectomy : No NANCI RUDOLPH - 10/08/2015 8:21 CDT Subjective Pain Symptoms : No NANCI RUDOLPH - 10/08/2015 8:21 CDT Dependent Habits Exposure to Tobacco Smoke : Care provider denies smoking in home, Other: NEVER Smoking Status : Never smoker Tobacco 2A : No Tobacco Use/Currently Using : No Tobacco Use/Last 30 Days : No Tobacco Use/Last 12 months : No Alcohol Use : Yes NANCI RUDOLPH - 10/08/2015 8:21 CDT Caffeine Use Grid Caffeine Use : Current Type : Soft drinks Frequency : Weekly Amount : 3 cans per week NANCI RUDOLPH - 10/08/2015 8:21 CDT Recreational Drug Use Grid Drug Use : None NANCI RUDOLPH - 10/08/2015 8:21 CDT [facility] Document Id: [id number] CDT!37 documented in this encounter Plan of Treatment Not on filedocumented as of this encounter Visit Diagnoses Not on filedocumented in this encounter Additional Health Concerns Assessment Noted Time PHQ-9 Depression Total Score: 2 07/10/2015 3:55 PM CDT documented as of this encounter
--- OUTSIDE RECORDS SUMMARY | 2021-12-10 15:37 | XMS_ITS | Encounter Summary ---
:1980 Author Organization [facility] Address [address] [place] [address] Care Team Providers Name Role Phone Unavailable Primary Care Provider Unavailable Encounter Details Date Type Department Care Team Description 02/22/2015 Hospital Encounter HX [facility] Carlos Vang M.D. 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 0 07/16/2014 IBUPROFEN ORAL ibuprofen 0 07/16/2014 MULTIVITAMIN WITH MINERALS Take 1 capsule by 0 ORAL mouth daily. documented as of this encounter Progress Notes Carlos Vang M.D. - 02/22/2015 10:38 AM CDT [id number] CHIEF COMPLAINT/REASON FOR VISIT Cough, postinfectious. HISTORY OF PRESENT ILLNESS Jeannine comes in today regarding her above mentioned issues. She informs me that over the last month or two she has been noticing some cough symptoms on and off. She did get symptoms of upper respiratory tract infection in the past. This continues to persist along with her son has been sick. She complains of some significant amount of drainage in the nighttime, especially when laying down associatedwith some bouts of cough. She declines any fever, declines any chills. Declines any chest pain or shortness of breath. She has been using ekzr-zru-qjhtcod antihistamines as well as nasal spray with slight benefit. She is here to see if anything further needs to be done for the symptoms. PAST MEDICAL/SURGICAL HISTORY Reviewed on 02/22/2015. SOCIAL HISTORY Reviewed on 02/22/2015. FAMILY HISTORY Reviewed on 02/22/2015. MEDICATIONS Reviewed on 02/22/2015. ALLERGIES Reviewed on 02/22/2015. SYSTEMS REVIEW As above. All other systems reviewed and negative. PHYSICAL EXAMINATION VITAL SIGNS: Reviewed. GENERAL: In no apparent distress, comfortable and cooperative. HEENT: Normocephalic, atraumatic. EOMI. PERRL. No conjunctival injection. Nose patent bilaterally without erythema or drainage. Oropharynx: [place] mucous membranes without lesions, exudate or drainage. NECK: Supple without lymphadenopathy. No thyromegaly or thyroid masses. CARDIOVASCULAR: Regular rate and rhythm without murmur, gallop or rubs. LUNGS: Clear to auscultation bilaterally without wheezing or rales. ABDOMEN: Soft, nontender and nondistended. Normal active positive bowel sounds. No hepatosplenomegaly or masses appreciated. EXTREMITIES: No clubbing, cyanosis or edema. IMPRESSION/REPORT/PLAN Cough, postinfectious. Pathophysiology of the disease was discussed with Jeannine today. Benefits ofconservative management including resting, adequate hydration as well as symptomatic treatment was discussed. Currently no further workup will be recommended. Physical examination appears normal. She agrees with the plan. I will have her come back to us as needed now. Vinod Orr/suly Electronically Signed By: CARLOS VANG MD On: 02/25/2015 06:18 PM Source: [facility] MHSDOLBEYNONRADSYS Document Id: [id number] RVISOR RECLAMATION documented in this encounter Miscellaneous Notes Miscellaneous - Carlos Vang M.D. - 02/22/2015 12:09 PM CDT Ambulatory Patient Summary [address] [place] [id number] Visit Information Name: HARDYSHAYAN JEANNINE LYNN [facility] Number: [id number] Current Date: 02/22/2015 12:09:20 Physicians Attending Provider: CARLOS VANG MD Primary [...] visit. 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 ibuprofen (ibuprofen) multivitamin with minerals (multivitamin with minerals Multiple Vitamins with Zinc oral capsule) 1 cap, Oral, once a day with magnesium Stop Taking the Following Medications: Medication list as of 02-22-15 12:09 Attention: If you have any medications [...] Electronically Signed By: CARLOS VANG MD Signed On:22-FEB-2015 12:09:15 Your Allergies & Intolerances Substance Reaction Symptoms [...] Your Upcoming Appointments Date Time Location Provider 03/01/2015 15:30 [facility] Injection Nurse 03/04/2015 14:00 [facility] RN FP Team 1 04/01/2015 09:45 [facility] Neurology Erin MARTINEZ, Tamara Attention: Contact [...] if you dont have one. Go to [email or web address] and click on Create Your Account. Then, follow the directions to complete the online form. Youll be asked for your [facility] number which you can find at the top of this document. Your Goals/Additional instructions: Source: [facility] POWERCHART Document Id: [id number] Miscellaneous - Carlos Vang M.D. - 02/22/2015 12:09 PM CDT Ambulatory Discharge Medication List [place] [address] [place] [id number] Visit Information Name: JEANNINE OWENS [facility] Number: [id number] Visit Date: 02/22/2015 12:09:19 Attending Provider: CARLOS VANG MD Primary Care [...] visit. 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 ibuprofen (ibuprofen) multivitamin with minerals (multivitamin with minerals Multiple Vitamins with Zinc oral capsule) 1 cap, Oral, once a day with magnesium Stop Taking the Following Medications: Medication list as of 02-22-15 12:09 Attention: If you have any medications [...] Electronically Signed By: CARLOS VANG MD Signed On:22-FEB-2015 12:09:15 Additional Information: Source: [facility] POWERCHART Document Id: [id number] Miscellaneous - Shira Grimaldo L.P.N. 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 Entered On: 02/22/2015 10:51 CDT Performed On: 02/22/2015 10:48 CDT by SHIRA GRIMALDO LPN Intake Chief Complaint : cough Temperature Core : 36.8 DegC(Converted to: 98.2 DegF) Peripheral Pulse Rate : 78 /min Systolic Blood Pressure : 128 mmHg Diastolic Blood Pressure : 82 mmHg NIBP Mean : 97 mmHg BP Location : Right upper extremity Blood Pressure Cuff Size : Regular SpO2 : 98 % Oxygen Therapy : Room air Height : 166 cm(Converted to: 5 ft 5 inch(es), 65 inch(es)) Actual Weight : 58.5 kg(Converted to: 129 lb 0 oz) Weight Source : Standing scale Dosing Weight Clinic : 58.5 kg Clinic BSA : 1.64 Body Mass Index : 21.23 kg/m2 SHIRA GRIMALDO LPN - 02/22/2015 10:48 CDT General Info Languages : Nigerien Is Patient Female and 13-50 no hysterectomy : No SHIRA GRIMALDO LPN - 02/22/2015 10:48 CDT Subjective Pain Symptoms : No SHIRA GRIMALDO LPN - 02/22/2015 10:48 CDT Dependent Habits Tobacco Use/Currently Using : No Exposure to Tobacco Smoke : Care provider denies smoking in home Smoking Status : Never smoker SHIRA GRIMALDO LPN - 02/22/2015 10:48 CDT Caffeine Use Grid Caffeine Use : Current Type : Soft drinks Frequency : Weekly Amount : 3 cans per week SHIRA GRIMALDO LPN - 02/22/2015 10:48 CDT Recreational Drug Use Grid Drug Use : None SHIRA GRIMALDO LPN - 02/22/2015 10:48 CDT Source: [employer] Document Id: [id number] CDT!36 documented in this encounter Plan of Treatment Not on filedocumented as of this encounter Visit Diagnoses Not on filedocumented in this encounter Additional Health Concerns Assessment Noted Time PHQ-9 Depression Total Score: 3 11/29/2014 4:18 PM CDT documented as of this encounter
--- OUTSIDE RECORDS SUMMARY | 2021-12-10 15:37 | XMS_ITS | Encounter Summary ---
:1980 Author Organization [facility] Address [address] [place] [address] Care Team Providers Name Role Phone Unavailable Primary Care Provider Unavailable Encounter Details Date Type Department Care Team Description 11/07/2015 Hospital Encounter [facility]X [facility] Jah Gross idi, D.O. 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 BI BREAST DIAGNOSTIC Routine 11/07/2015 10:16 AM Results for this BILATERAL CDT procedure are i n the results section. documented in this encounter Results BI Ultrasound Breast Focused Left (11/07/2015 10:45 AM CDT) Anatomical Region Laterality Modality Breast Left Ultrasound Specimen (Source) Anatomical Collection Method Collection Time Re ceived Time Location / / Volume Laterality 11/07/2015 10:45 AM CDT Addenda Addendum by Provider, Shakila Villagran n 11/07/2015 10:45 AM CDT RAD^^^AL US Breast Left Limited 11/07/2015 10:45:36 Impressions 11/07/2015 11:22 AM CDT Targeted left breast ultrasound was performed and dictated in conjunction with diagnostic mammogram from the same day. Please see diagnostic mammogram report d ated 11/07/2015 for full ultrasound details. BIRADS Narrative 11/07/2015 11:22 AM CDT EXAM: US Breast Left Limited Procedure Note Mayelin Wills M.D. / Provider, Juve alberts M.D. - 08/29/2016 EXAM: US Breast Left Limited IMPRESSION: Targeted left breast ultraso und was performed and dictated in conjunction with diagnostic mammogram from the same day. Please see diagnostic mammogram report d ated 11/07/2015 for full ultrasound details. BIRADS Westley Gaytan R.V.T., GypsyM.S. IMG BI PROCEDURES BI Breast Diagnostic Bilateral (11/07/2015 10:16 AM CDT) Anatomical Region Laterality Modality Breast Bilateral Mammography Specimen (Source) Anatomical Collection Method Collection Time Re ceived Time Location / / Volume Laterality 11/07/2015 10:16 AM CDT Addenda Addendum by Provider, Shakila Villagran n 11/07/2015 10:16 AM CDT RAD^^^AL MA Mammo Digital Diag Bilat Mammo 11/07/2015 10:16:10 Impressions 11/07/2015 11:21 AM CDT Negative. There is no mammographic or targeted son ographic evidence of malignancy. RECOMMENDATIONS: Screening per ACR guide lines. CODE: 1-NEGATIVE Appropriate letter sent. Full field digital mammography is used a nd Computer Aided Detection is performed on the digital mammogram im ages. Narrative 11/07/2015 11:21 AM CDT EXAM: MA Mammo Digital Diag Bilat Mammo INDICATION: Left breast pain DENSITY: The breasts are heterogeneously dense, which may obscure small masses. FINDINGS: Bilateral full field 2D and to mosynthesis images were obtained. No significant masses, calcifi cations, or other mammographic finding in either breast. S pecifically, no mammographic finding in the lateral left breast at th e site of patient's pain. Targeted left breast ultrasound was perf ormed by both the drywall worker and myself. Ultrasound images of the lat eral and inferior left breast demonstrate normal fibroglandular tissue without significant sonographic adenopathy. Procedure Note Mayelin Wills M.D. / Provider, Juve alberts M.D. - 08/29/2016 EXAM: MA Mammo Digital Diag Bilat Mammo INDICATION: Left breast pain DENSITY: The breasts are heterogeneously dense, which may obscure small masses. FINDINGS: Bilateral full field 2D and to mosynthesis images were obtained. No significant masses, calcifi cations, or other mammographic finding in either breast. S pecifically, no mammographic finding in the lateral left breast at th e site of patient's pain. Targeted left breast ultrasound was perf ormed by both the drywall worker and myself. Ultrasound images of the lat eral and inferior left breast demonstrate normal fibroglandular tissue without significant sonographic adenopathy. IMPRESSION: Negative. There is no mammographic or targeted son ographic evidence of malignancy. RECOMMENDATIONS: Screening per ACR guide lines. CODE: 1-NEGATIVE Appropriate letter sent. Full field digital mammography is used a nd Computer Aided Detection is performed on the digital mammogram im ages. Yamel Garrison(R), RCinthiaTCinthia(R)(M) IMG BI PROCEDURES documented in this encounter Visit Diagnoses Not on filedocumented in this encounter Additional Health Concerns Assessment Noted Time PHQ-9 Depression Total Score: 2 07/10/2015 3:55 PM CDT documented as of this encounter
--- OUTSIDE RECORDS SUMMARY | 2021-12-10 15:37 | XMS_ITS | Encounter Summary ---
:1980 Author Organization [facility] Address [address] [place] [address] Care Team Providers Name Role Phone Unavailable Primary Care Provider Unavailable Encounter Details Date Type Department Care Team Description 01/16/2016 Hospital Encounter HX [facility] Carlos Vang M.D. 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 0 07/16/2014 IBUPROFEN ORAL ibuprofen 0 07/16/2014 MULTIVITAMIN WITH MINERALS Take 1 capsule by 0 ORAL mouth daily. documented as of this encounter Progress Notes Carlos Vnag M.D. - 01/16/2016 8:28 AM CDT [id number] CHIEF COMPLAINT/REASON FOR VISIT Acute pyelonephritis. HISTORY OF PRESENT ILLNESS Denice comes today to have herself evaluated. She informs me that she was at the urgent care on 01/15/2016 and had complained about symptoms of urinary tract infection. She was diagnosed with UTI after urinalysis and culture currently has been pending. She says that she has been now taking Bactrim twice a day for 7 days. However, she informs me that she has a significant amount of tenderness in herleft back area. She has had a history of pyelonephritis in the past and currently wonders if she might have had this same diagnosis. She declines any chest pain, shortness of breath, nausea, vomiting, chills. She informs me that the pain has an intensity of 5 to 6 out of 10. She does feel lethargic. She would like to have this further evaluated. PAST MEDICAL/SURGICAL HISTORY Reviewed on 01/16/2016. SOCIAL HISTORY Reviewed on 01/16/2016. FAMILY HISTORY Reviewed on 01/16/2016. MEDICATIONS Reviewed on 01/16/2016. ALLERGIES Reviewed on 01/16/2016. SYSTEMS REVIEW As above. All other systems reviewed negative. VITAL SIGNS Blood pressure of 124/82, heart rate of 84, temp 37, weight 58.1 kg with a BMI of 21.08. PHYSICAL EXAMINATION GENERAL: In no apparent distress, comfortable and cooperative. HEENT: Normocephalic, atraumatic. EOMI. PERRL. No conjunctival injection. Nose patent bilaterally without erythema or drainage. Oropharynx: [place] mucous membranes without lesions, exudate or drainage. NECK: Supple without lymphadenopathy. No thyromegaly or thyroid masses. CARDIOVASCULAR: Regular rate and rhythm without murmur, gallop or rubs. LUNGS: Clear to auscultation bilaterally without wheezing or rales. ABDOMEN: Soft, nontender and nondistended. Normal active positive bowel sounds. No hepatosplenomegaly or masses appreciated. EXTREMITIES: No clubbing, cyanosis or edema. MUSCULOSKELETAL: No significant deformity in the spine noted. She did complain of slight tenderness in the left CVA area. DIAGNOSTICS Lab work from 01/15/2016 reveals cloudy urine with trace amount of ketones, moderate amount of bloodand large amount of leukocyte esterase. Culture currently pending. IMPRESSION/REPORT/PLAN Urinary tract infection with possibility of acute pyelonephritis, left. Management options were discussed with Denice. I did inform her that Bactrim can be used as an antibiotic to treat acute pyelonephritis as well. Currently, especially since she does not have any fever or chills, I have recommended against changing the antibiotic right away. I have suggested that we wait for a culture report to come back and plan for further evaluation if needed. I will update Denice once the report of culture does come back. I did suggest that if it does come back sensitive we might benefit from extending the dose of antibiotics to at least 10 to 14 days. If the symptoms worsen, we might need a CT scan of the abdomen. She agrees with the plan. I will be awaiting her culture report. Vinod Orr/suly Electronically Signed By: CARLOS VANG MD On: 01/20/2016 07:51 AM Modified by and Electronically Signed by: CARLOS VANG MD On: 01/20/2016 07:51 AM Source: [facility] MHSDOLBEYNONRADSYS Document Id: [id number] documented in this encounter Miscellaneous Notes Miscellaneous - Conversion, Historical Provider Ser - 02/12/2016 2:58 PM CDT Hosea/Adderall Document Contains Addenda Addendum by LETI SORENSEN LPN on February 13, 2016 09:32:37 CDT Rx readsy and taken to front for cone picker Addendum by SHAAN CLINE MD on February 12, 2016 16:02:07 CDT Approved Order:dextroamphetamine-amphetamine (dextroamphetamine-amphetamine 5 mg oral tablet) See Instructions 1 tab(s) PO DAILY AM AND NOON. Ok to fill 30 days after the last visit. Qty: 60 tab(s) Refills: 0 Substitutions Allowed Print - [id number] (Adderal) please call pt for cone picker. Pt uses [facility]. Signed by SHAAN CLINE MD 02/12/2016 16:02:05 Addendum by LETI SORENSEN LPN on February 12, 2016 15:46:59 CDT From: LETI SORENSEN LPN ([facility] Team 1 Nurse) To: SHAAN CLINE MD; Sent: 02/12/2016 15:46:59 CDT Subject: adderall On hold pending signature Order:dextroamphetamine-amphetamine (dextroamphetamine-amphetamine 5 mg oral tablet) See Instructions 1 tab(s) PO DAILY AM AND NOON. Ok to fill 30 days after the last visit. Qty: 60 tab(s) Refills: 0 Substitutions Allowed Print - [id number] (Adderal) please call pt for cone picker. Pt uses [facility]. From: YOUNG JONAS ([facility] Job Coaching) To: [facility] Team 1 Nurse; Sent: 02/12/2016 14:58:06 CDT Subject: Hosea/Adderall Caller Name/Relationship: Pt Call Back # [phone] Reason for Call: Pt needs refill Adderall pharmacy [facility]. Please call pt when ready. Source: [facility] POWERBookBub Document Id: [id number] Miscellaneous - Carlos Vang M.D. - 01/16/2016 4:03 PM CDT Ambulatory Patient Summary [address] [id number] Visit Information Name: DENICE OWENS [facility] Number: [id number] Current Date: 01/16/2016 16:03:15 Physicians Attending Provider: CARLOS VANG MD Primary [...] visit. / (Adderal) please call pt for cone picker. Pt uses [facility]. dihydroergotamine (dihydroergotamine 4 mg/mL nasal spray) 1 [place](s), Nostrils(Both), as needed as needed for Migraine [...] times a day as needed for Nausea sulfamethoxazole-trimethoprim (Bactrim DS 800 mg-160 mg oral tablet) 1 Tablet(s), Oral, two times a day x 7 day(s) Stop Taking the Following Medications: Medication list as of 01-16-16 16:03 Attention: If you have any medications at [...] Electronically Signed By: CARLOS VANG MD Signed On:16-JAN-2016 16:03:12 Your Allergies & Intolerances Substance Reaction Symptoms [...] if you dont have one. Go to [email or web address] and click on Create Your Account. Then, follow the directions to complete the online form. Youll be asked for your [facility] number which you can find at the top of this document. Your Goals/Additional instructions: Source: [facility] POWERCHART Document Id: [id number] Miscellaneous - Carlos Vang M.D. - 01/16/2016 4:03 PM CDT Ambulatory Discharge Medication List [address] [id number] Visit Information Name: DENICE OWENS [facility] Number: [id number] Visit Date: 01/16/2016 16:03:14 Attending Provider: CARLOS VANG MD Primary Care [...] visit. / (Adderal) please call pt for cone picker. Pt uses [facility]. dihydroergotamine (dihydroergotamine 4 mg/mL nasal spray) 1 [place](s), Nostrils(Both), as needed as needed for Migraine [...] times a day as needed for Nausea sulfamethoxazole-trimethoprim (Bactrim DS 800 mg-160 mg oral tablet) 1 Tablet(s), Oral, two times a day x 7 day(s) Stop Taking the Following Medications: Medication list as of 01-16-16 16:03 Attention: If you have any medications at [...] Electronically Signed By: CARLOS VANG MD Signed On:16-JAN-2016 16:03:12 Additional Information: Source: [facility] POWERCHART Document Id: [id number] Miscellaneous - Cords, Leti Lin L.P.NCinthia - 01/16/2016 9:21 AM CDT PHQ-9 PHQ-9 Entered On: 01/16/2016 9:21 CDT Performed On: 01/16/2016 9:21 CDT by LETI SORENSEN LPN PHQ-9 Little interest or pleasure in doing things : Not at all Feeling down, depressed, or hopeless : Not at all Trouble falling or staying asleep, or sleeping too much : Not at all Feeling tired or having little energy : Not at all Poor appetite or overeating : Not at all Feeling bad about yourself or that you are a failure : Not at all Trouble concentrating on things : Not at all Moving or speaking slowly; restless or fidgety : Not at all Thoughts that you would be better off /hurting self : Not at all PHQ-9 Calculated Score : 0 Problems make work, home, or dealing with others : Not difficult at all LETI SORENSEN LPN - 01/16/2016 9:21 CDT Source: [employer] Document Id: [id number] CDT!13 Miscellaneous - Carlos Vang M.D. - 01/16/2016 9:19 AM CDT Work Excuse January 16, 2016 DENICE OWENS [id number] [place] [id number] Dear DENICE OWENS, You were examined in my office on: 01/16/2016 Reason for work excuse: Medical Illness ( [...] _ ) Return to Work date: _ Notes: Excuse from work for 01/16/2016 and 01/17/2016 Sincerely, CARLOS VANG [address] [place] [address] Electronic Signature Electronically Signed By: CARLOS VANG MD On: January 16, 2016 This document has images extracted. Source: [facility] POWERCHART Document Id: [id number] Electronically signed by Zac [facility] Lasting Room Supervisor [id number] at 09/20/2016 4:10 AM CDT Miscellaneous - Negin Bedoya, L.P.N. 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 Entered On: 01/16/2016 8:40 CDT Performed On: 01/16/2016 8:38 CDT by NEGIN BEDOYA Intake Chief Complaint : UC follow up- bladder infection, pt states it is a kidney infection Temperature Core : 37.0 DegC(Converted to: 98.6 DegF) Peripheral Pulse Rate : 84 /min Heart Rhythm : Regular Systolic Blood Pressure : 124 mmHg Diastolic [...] 1.64 Body Mass Index : 21.08 kg/m2 NEGIN BEDOYA - 01/16/2016 8:38 CDT General Info Information Given By : Patient Languages : Greek Is Patient Female and 13-50 no hysterectomy : No NEGIN BEDOAY - 01/16/2016 8:38 CDT Subjective Pain Symptoms : Yes NEGIN BEDOYA - 01/16/2016 8:38 CDT Pain Scale Pain Scale Verbal 0-10 : Open NEGIN BEDOYA 01/16/2016 8:38 CDT Pain Pain Assessment Grid Pain 1 Location : Other: Kidneys Intensity : 6 NEGIN BEDOYA 01/16/2016 8:38 CDT Dependent Habits Exposure to Tobacco Smoke : Care provider denies smoking in home, Other: NEVER Smoking Status : Never smoker Tobacco 2A : No Tobacco Use/Currently Using : No Tobacco Use/Last 30 Days : No Tobacco Use/Last 12 months : No Alcohol Use : Yes NEGIN BEDOYA - 01/16/2016 8:38 CDT Caffeine Use Grid Caffeine Use : Current Type : Soft drinks Frequency : Weekly Amount : 3 cans per week NEGIN BEDOYA - 01/16/2016 8:38 CDT Recreational Drug Use Grid Drug Use : None NEGIN BEDOYA - 01/16/2016 8:38 CDT Source: [employer] Document Id: [id number] CDT!47 documented in this encounter Plan of Treatment Not on filedocumented as of this encounter Visit Diagnoses Not on filedocumented in this encounter
--- OUTSIDE RECORDS SUMMARY | 2021-12-10 15:37 | XMS_ITS | Encounter Summary ---
:1980 Author Organization [facility] Address [address] [place] [address] Care Team Providers Name Role Phone Unavailable Primary Care Provider Unavailable Encounter Details Date Type Department Care Team Description 10/31/2014 Hospital Encounter [facility]X [facility] Dominga Foster M.D. 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 0 07/16/2014 IBUPROFEN ORAL ibuprofen 0 07/16/2014 MULTIVITAMIN WITH MINERALS Take 1 capsule by 0 ORAL mouth daily. documented as of this encounter Progress Notes Dominga Foster M.D. - 10/31/2014 1:02 PM CDT [id number] Jeannine returns for acupuncture treatment for her neck and headache pain. Her headache pain resolved. Her posterior neck pain is resolved. She has a pain in the right upper chest muscle which is intermittent in nature. She rates the pain level 4 on a scale 0 to 10. Denies any radicular pain to the upper extremity. No longer has upper back interscapular pain. The pain gets worse by prolonged driving or sitting too long. She is working continuously with her neck and shoulder stretching exercises thatshe was taught by the therapist. This is her last session out of 12 acupuncture treatment. She had a0 no show. PHYSICAL EXAMINATION GENERAL: The patient is a 34-year-old female, not in distress. MENTAL STATUS: Oriented to person, place. Appropriate mood and affect. MUSCULOSKELETAL: Ambulation without assist device. The muscle bulging, tightness of the upper cervical paraspinal in the suboccipital region resolved. There is no significant tenderness noted in the suboccipital region on the right side. She does have still some tightness of the right upper trapezius muscle with trigger point remains to some degree. Neck range of motion within normal limits. There isno abnormal skin lesion noted. IMPRESSION/REPORT/PLAN Chronic right neck and shoulders pain and headache pain, cervicogenic origin; posterior neck and headache pain resolved at this time. She has remaining some pain in the right upper chest muscle area, myofascial pain. She wanted to go ahead with acupuncture treatment. Written informed consent was obtained. She responded very well to the dry needling technique as well to the upper trapezius muscle. PROCEDURE: Patient was in the prone position. Skin was prepped with the ChloraPrep preparation. Acupuncture was carried out as follows: 1. Principal [place] treatment using points, BL 60, KI 3, KI 10, SI 3, HT 7 bilaterally with electrical stimulation from KI 3 to KI 10, duration 10 minutes. 2. Posterior neck treatment using points, GV 15, GV 16, bilateral GB 20, BL 10, GB 21, and inner bladder line at T2, T4 bilaterally with electrical stimulation, centrally 15 Hz, peripherally 4 Hz stimulation, duration 15 minutes, duration 20 minutes. Patient tolerated procedure well. Immediately after the acupuncture treatment, she noted significant relief of pain in the right shoulder upper trapezius muscle area. I recommended she continue her home exercise program as she was taught by the therapist with the neck and shoulder with the muscle stretching exercise and strengthening program and activity modification, moist heat 20 minutes in the neck area and she will return to me if she has recurrent significant pain. She may need episodic acupuncture treatment for recurrent pain. She indicated understanding and agreed to the plan of care. Dominga Foster M.D./suly Electronically Signed By: DOMINGA FOSTER MD On: 11/28/2014 09:06 AM Modified by and Electronically Signed by: DOMINGA FOSTER MD On: 11/28/2014 09:06 AM Source: [facility] MHSDOLBEYNONRADSYS Document Id: [id number] documented in this encounter Miscellaneous Notes Miscellaneous - Dominga Foster M.D. 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 Pt uses [employer]. HYDROcodone-acetaminophen (HYDROcodone-acetaminophen 5 mg-325 mg oral tablet) 1 Tablet(s), Oral, every 8 hours as needed for Pain No more than 4,000mg acetaminophen/24hrs ibuprofen (ibuprofen) multivitamin with minerals (multivitamin with minerals Multiple Vitamins with Zinc oral capsule) 1 cap, Oral, once a day with magnesium Stop Taking the Following Medications: Medication list as of 10-31-14 17:38 Attention: If you have any medications at [...] Electronically Signed By: DOMINGA FOSTER MD Signed On:31-OCT-2014 17:37:58 Your Allergies & Intolerances Substance Reaction Symptoms [...] form. Youll be asked for your [facility] number which you can find at the top of this document. Your Goals/Additional instructions: Source: [facility] POWERCHART Document Id: [id number] Miscellaneous - Dominga Foster M.D. - 10/31/2014 5:38 PM CDT Ambulatory Discharge Medication List 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 Pt uses [employer]. HYDROcodone-acetaminophen (HYDROcodone-acetaminophen 5 mg-325 mg oral tablet) 1 Tablet(s), Oral, every 8 hours as needed for Pain No more than 4,000mg acetaminophen/24hrs ibuprofen (ibuprofen) multivitamin with minerals (multivitamin with minerals Multiple Vitamins with Zinc oral capsule) 1 cap, Oral, once a day with magnesium Stop Taking the Following Medications: Medication list as of 10-31-14 17:37 Attention: If you have any medications at [...] Electronically Signed By: DOMINGA FOSTER MD Signed On:31-OCT-2014 17:37:58 Additional Information: Source: [facility] POWERCHART Document Id: [id number] Miscellaneous - Vee, Marissa L, L.PCinthiaN. 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 Rates painat a 4/10 in right side of neck/shoulder today which patient reports is improved Height : 166 cm(Converted to: 5 ft 5 inch(es), 65 inch(es)) KEYSHA MARISSA Peña LPN - 10/31/2014 13:13 CDT General Info Information Given By : Patient Preferred Communication Mode : Verbal Languages : Hungarian Is Patient Female and 13-50 no hysterectomy : No MARISSA CHOPRA LPN - 10/31/2014 13:13 CDT Subjective Pain Symptoms : Yes MARISSA CHOPRA LPN - 10/31/2014 13:13 CDT Pain Scale Pain Scale Verbal 0-10 : Open MARISSA CHOPRA LPN - 10/31/2014 13:13 CDT Pain Pain Assessment Grid Pain 1 Pain 2 Location : Neck Shoulder Laterality : Right Right Intensity : 4 4 MARISSA CHOPRA LPN - 10/31/2014 13:13 CDT MARISSA CHOPRA LPN - 10/31/2014 13:13 CDT Dependent Habits Tobacco Use/Currently Using : No Exposure to Tobacco Smoke : Care provider denies smoking in home Smoking Status : Never smoker MARISSA CHOPRA LPN - 10/31/2014 13:13 CDT Caffeine Use Grid Caffeine Use : Current Type : Soft drinks Frequency : Weekly Amount : 3 cans per week MARISSA CHOPRA LPN - 10/31/2014 13:13 CDT Recreational Drug Use Grid Drug Use : None MARISSA CHOPRA LPN - 10/31/2014 13:13 CDT Source: [facility] SiteflyCHART Document Id: [id number] CDT!36 documented in this encounter Plan of Treatment Not on filedocumented as of this encounter Visit Diagnoses Not on filedocumented in this encounter Additional Health Concerns Assessment Noted Time PHQ-9 Depression Total Score: 2 05/04/2014 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
--- OUTSIDE RECORDS SUMMARY | 2021-12-10 15:37 | XMS_ITS | Encounter Summary ---
:1980 Author Organization [facility] Address [address] [place] [address] Care Team Providers Name Role Phone Unavailable Primary Care Provider Unavailable Encounter Details Date Type Department Care Team Description 02/25/2015 Hospital Encounter HX [facility] LABCLINIC Phan Pfeiffer M .D. 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 0 07/16/2014 IBUPROFEN ORAL ibuprofen 0 07/16/2014 MULTIVITAMIN WITH MINERALS Take 1 capsule by 0 ORAL mouth daily. documented as of this encounter Miscellaneous Notes Miscellaneous - Phan Pfeiffer M.D. - 02/25/2015 1:46 PM EYE CLINIC MANAGER Results Notification Document Contains Addenda Addendum by CHARITY JOHNSON LPN on 25 February 2015 15:32:07 EYE CLINIC MANAGER Pt. called back and I gave her lab results. Charity Addendum by CHARITY JOHNSON LPN on 25 February 2015 14:41:34 EYE CLINIC MANAGER Called and left message to call back about labs. Charity Johnson From: PHAN PFEIFFER MD To: PEGGY Neurology Nurse; Sent: 02/25/2015 13:46:35 EYE CLINIC MANAGER Show up: 02/25/2015 13:47:00 EYE CLINIC MANAGER Subject: Results Notification Normal thyroid Results: Date Result Name Value Ref Range 02/25/2015 09:43 TSH 0.55 mIU/L (0.27 - 4.20) Source: [facility] POWERCHART Document Id: [id number] documented in this encounter Plan of Treatment Not on filedocumented as of this encounter Procedures Procedure Name Priority Date/Time Associated Diagnosis Comme nts THYROID FUNCTION Routine 02/25/2015 9:43 AM Resul ts for this CASCADE, S EYE CLINIC MANAGER procedure are i n the results section. documented in this encounter Results Thyroid Function Grant (02/25/2015 9:43 AM EYE CLINIC MANAGER) P athologist Signature TSH 0.55 0.27 - 4.20 POWERCHART (Thyrotropin) MIUL Specimen (Source) Anatomical Collection Method Collection Time Re ceived Time Location / / Volume Laterality Blood 02/25/2015 9:43 AM EYE CLINIC MANAGER Phan Pfeiffer M.D. LAB BLOOD ADD-ON Performing Organization Address City/State/ZIP Code Phon e Number POWERCHART documented in this encounter Visit Diagnoses Not on filedocumented in this encounter Additional Health Concerns Assessment Noted Time PHQ-9 Depression Total Score: 3 11/29/2014 4:18 PM CDT documented as of this encounter
--- OUTSIDE RECORDS SUMMARY | 2021-12-10 15:37 | XMS_ITS | Encounter Summary ---
:1980 Author Organization [facility] Address [address] [place] [address] Care Team Providers Name Role Phone Unavailable Primary Care Provider Unavailable Encounter Details Date Type Department Care Team Description 08/19/2015 Hospital Encounter [facility]X [facility] NEUROLOGY Tamara Pfeiffer M .D. 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 0 07/16/2014 IBUPROFEN ORAL ibuprofen 0 07/16/2014 MULTIVITAMIN WITH MINERALS Take 1 capsule by 0 ORAL mouth daily. documented as of this encounter Progress Notes Tamara Pfeiffer M.D. - 08/19/2015 8:04 AM CDT [id number] PRIMARY CARE PHYSICIAN MARIANNA Orr. CHIEF COMPLAINT/REASON FOR VISIT Headaches. HISTORY OF PRESENT ILLNESS Denice is a 35-year-old young lady who presents to the clinic with regard to headaches. Patient was last seen by me in April 2015 when she received an occipital nerve block subsequent to a followup. Patient reports that overall she has been doing extremely well on indomethacin. Did have some breakthrough headaches for which she was seen by her primary back in June and was started on Midrin. Since the Midrin increased her blood pressures, was subsequently started on butalbital as needed. The patient reports the butalbital did help her. But last week when she had a severe breakthrough headache did contact her primary and was started on as needed Vicodin which has helped her.Patient reports that overall her sleep is good and denies any problems with depression or anxiety. In the past patient has not been able to tolerate any triptan since it increases the heart rate and often causes significant palpitations. Bowel and bladder stable. Speech and swallow stable. Weight and appetite stable. PAST MEDICAL/SURGICAL HISTORY Unchanged. ALLERGIES Reviewed and reconciled. MEDICATIONS Reviewed and reconciled. 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 FAMILY HISTORY Her sister and mom have history of supraventricular tachycardia and her dad has also a history of hypertension. SYSTEMS REVIEW All systems are reviewed and were negative unless stated as in HPI. PHYSICAL EXAMINATION VITAL SIGNS: Blood pressure noted stable at 110/70, pulse 62. Weight 57.6. CARDIOVASCULAR: S1, S2 positive. RESPIRATORY: Normal vesicular breath sounds. NEUROLOGIC EXAMINATION GENERAL: Patient is well dressed, well nourished. Was an extreme pleasure to talk with. MENTAL STATUS: Alert, oriented x3. CRANIAL NERVES: 2: Visual holman are full [...] vessels and pigmentation. No frontal release signs. HANDEDNESS: Right. MUSCLE TONE, BULK, AND STRENGTH: Normal. FINGER TAPS: Deferred. SENSORY: Intact to vibratory and light touch. REFLEXES: Present all over. Ankles were deferred at this time. GAIT: Normal. CEREBELLAR: Normal [id number]. IMPRESSION/REPORT/PLAN 1. Ms. Galdamez is a 35-year-old young individual who presents to the clinic with regard to headaches upon chronic headaches and migraines without aura. With regard to her headaches, patient has overall been doing well. Given the increased risk of strokes and heart attacks on indomethacin, will try her on a low dose of Cymbalta. Patient is agreeable with this plan. Will start Cymbalta at 20 mg and slowly titrate to a maximum of 40 mg at bedtime. The side effects of the medication discussed and advised the patient to call if she has any issues. If the Cymbalta works well, then the indomethacin can be used as needed when she has a breakthrough headache. The side effects of narcotics were again discussed and reiterated that they can worsen headaches in the future. The Cymbalta can also help with hermild depression and anxiety if there is any underlying atypical depression. Patient is also interested in a repeat of occipital nerve blocks to be scheduled on a later date. 2. Performance anxiety, currently stable on as-needed propranolol. Other things counseled upon were the importance of sleep. The plan of care discussed. Medications reconciled. Patient acknowledged understanding. Will follow up in a few weeks with regard to occipital nerve block and to follow up with her regarding her Cymbalta. Tamara Pfeiffer M.D./suly Electronically Signed By: TAMARA PFEIFFER MD On: 08/20/2015 09:21 AM Modified by and Electronically Signed by: TAMARA PFEIFFER MD On: 08/20/2015 09:21 AM Source: [facility] MHSDOLBEYNONRADSYS Document Id: [id number] documented in this encounter Miscellaneous Notes Miscellaneous - Tamara Pfeiffer M.D. - 08/19/2015 2:34 PM CDT Ambulatory Patient Summary [place] [facility] [address] [facility] [place] [id number] Visit Information Name: BETTY OWENSBRITTNY NEW [facility] Number: [id number] Current Date: 08/19/2015 14:34:08 Physicians Attending Provider: TAMARA PFEIFFER MD Primary Care Provider: YOBANY VANG MD ASHLEYRileyANDREWDENICE LYNN has been given [...] visit. 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 Pt uses [facility]. DULoxetine (Cymbalta 20 mg oral delayed release capsule) 1 cap, Oral, once a day If tolerated increase to 40mg after a week New Routed to [facility] [address] [facility] [place] [id number] HYDROcodone-acetaminophen (HYDROcodone-acetaminophen 5 mg-325 mg oral tablet) [...] times a day as needed for Nausea propranolol (propranolol 20 mg oral tablet) 1 Tablet(s), Oral, two times a day take as needed for performance anxiety Stop Taking the Following Medications: Medication list as of 08-19-15 14:34 Attention: If you have any medications at [...] Electronically Signed By: TAMARA PFEIFFER MD Signed On:19-AUG-2015 14:34:04 Your Allergies & Intolerances Substance Reaction Symptoms [...] if you dont have one. Go to [email or web address] and click on Create Your Account. Then, follow the directions to complete the online form. Youll be asked for your [facility] number which you can find at the top of this document. Your Goals/Additional instructions: Source: [facility] POWERCHART Document Id: [id number] Miscellaneous - Tamara Pfeiffer M.D. - 08/19/2015 2:34 PM CDT Ambulatory Discharge Medication List [place] - [address] [place] [id number] Visit Information Name: ANDREW OWENSHUGH NEW [facility] Number: [id number] Visit Date: 08/19/2015 14:34:07 Attending Provider: TAMARA PFEIFFER MD Primary Care [...] visit. 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 Pt uses [employer]. DULoxetine (Cymbalta 20 mg oral delayed release capsule) 1 cap, Oral, once a day If tolerated increase to 40mg after a week New Routed to [address] [place] [id number] HYDROcodone-acetaminophen (HYDROcodone-acetaminophen 5 mg-325 mg oral tablet) [...] times a day as needed for Nausea propranolol (propranolol 20 mg oral tablet) 1 Tablet(s), Oral, two times a day take as needed for performance anxiety Stop Taking the Following Medications: Medication list as of 08-19-15 14:34 Attention: If you have any medications at [...] Electronically Signed By: TAMARA PFEIFFER MD Signed On:19-AUG-2015 14:34:04 Additional Information: Source: [facility] POWERCHART Document Id: [id number] Miscellaneous - Nacni Rudolph, L.P.N. - 08/19/2015 8:14 AM CDT Adult Wildlife Biologist Intake/History Adult Wildlife Biologist Intake/History Entered On: 08/19/2015 8:16 CDT Performed On: 08/19/2015 8:14 CDT by NANCI RUDOLPH Intake Chief Complaint : Recheck Headaches Peripheral Pulse Rate : 62 /min Systolic Blood Pressure : 110 mmHg Diastolic Blood Pressure : 70 mmHg NIBP Mean : 83 mmHg BP Location : Left upper extremity Blood Pressure Cuff Size : Large Height : 166 cm(Converted to: 5 ft 5 inch(es), 65 inch(es)) Actual Weight : 57.6 kg(Converted to: 127 lb 0 oz) Dosing Weight Clinic : 57.6 kg Clinic BSA : 1.63 Body Mass Index : 20.9 kg/m2 NANCI RUDOLPH - 08/19/2015 8:14 CDT General Info Information Given By : Patient Languages : Puerto Rican Is Patient Female and 13-50 no hysterectomy : No NANCI RUDOLPHH - 08/19/2015 8:14 CDT Subjective Pain Symptoms : No NANCI RUDOLPHH - 08/19/2015 8:14 CDT Dependent Habits Exposure to Tobacco Smoke : Care provider denies smoking in home, Other: NEVER Smoking Status : Never smoker Tobacco 2A : No Tobacco Use/Currently Using : No Tobacco Use/Last 30 Days : No Tobacco Use/Last 12 months : No Alcohol Use : Yes NANCI RUDOLPH - 08/19/2015 8:14 CDT Caffeine Use Grid Caffeine Use : Current Type : Soft drinks Frequency : Weekly Amount : 3 cans per week NANCI RUDOLPH - 08/19/2015 8:14 CDT Recreational Drug Use Grid Drug Use : None NANCI RUDOLPHH - 08/19/2015 8:14 CDT Source: [facility] Document Id: [id number] CDT!37 documented in this encounter Plan of Treatment Not on filedocumented as of this encounter Visit Diagnoses Not on filedocumented in this encounter Additional Health Concerns Assessment Noted Time PHQ-9 Depression Total Score: 2 07/10/2015 3:55 PM CDT documented as of this encounter
--- OUTSIDE RECORDS SUMMARY | 2021-12-10 15:37 | XMS_ITS | Encounter Summary ---
:1980 Author Organization [facility] Address [address] [place] [address] Care Team Providers Name Role Phone Unavailable Primary Care Provider Unavailable Encounter Details Date Type Department Care Team Description 11/29/2014 Hospital Encounter HX [facility] Carlos Vang M.D. 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 0 07/16/2014 IBUPROFEN ORAL ibuprofen 0 07/16/2014 MULTIVITAMIN WITH MINERALS Take 1 capsule by 0 ORAL mouth daily. documented as of this encounter Progress Notes Carlos Vang M.D. - 11/29/2014 2:31 PM CDT [id number] CHIEF COMPLAINT/REASON FOR VISIT Left lower extremity numbness. HISTORY OF PRESENT ILLNESS Jeannine comes today to have herself evaluated. She informs me that over the last few years she has been noticing some on and off numbness of her left lower extremity always below her left knee. She has always been a runner and runs approximately 3 to 5 miles on a daily basis. She states that now the numbness has been a lot worse. She complains of numbness especially in her inner calf area and sometimes into her sole as well. She declines any significant weakness. She does complain of some pain in the inner aspect of the left calf. Declines any weakness of the extremities. She also states that she has been noticing some heaviness in her left foot and sometimes while walking she notices some swellin g. She declined any chest pain, shortness of breath, nausea, vomiting, or diarrhea. PAST MEDICAL/SURGICAL HISTORY Reviewed on 11/29/2014. SOCIAL HISTORY Reviewed on 11/29/2014. FAMILY HISTORY Reviewed on 11/29/2014. MEDICATIONS Reviewed on 11/29/2014. ALLERGIES Reviewed on 11/29/2014. SYSTEMS REVIEW As above. All other systems reviewed and negative. PHYSICAL EXAMINATION VITAL SIGNS: Reviewed. GENERAL: In no apparent distress, comfortable and cooperative. HEENT: Normocephalic, atraumatic. EOMI. PERRL. No conjunctival injection. Nose patent bilaterally without erythema or drainage. Oropharynx: [place] mucous membranes without lesions, exudate or drainage. NECK: Supple without lymphadenopathy. No thyromegaly or thyroid masses. CARDIOVASCULAR: Regular rate and rhythm without murmur, gallop or rubs. LUNGS: Clear to auscultation bilaterally without wheezing or rales. ABDOMEN: Soft, nontender and nondistended. Normal active positive bowel sounds. No hepatosplenomegaly or masses appreciated. EXTREMITIES: Both lower extremities were examined. No significant deformity noted. SLRT negative. External rotation of the hip did not cause any pain. Knee examination was completely normal. Ankle was normal. Peripheral pulses including dorsalis pedis as well as posterior tibial artery was noted to benormal. Her bilateral popliteal artery was also palpable. Homans and Kike signs were negative. Skinoverlying the joint as well as the entire lower extremity was noted to be normal. She did complain of some subjective numbness especially in the distribution of S2. IMPRESSION/REPORT/PLAN Left-sided leg numbness as well as some tenderness on and off, chronic. No significant findings werenoted today on the examination. It has been years since she has had this problem and she believes this has been getting slightly worse. She declines any back pain. Also declines any hip pain. No weakness or gait abnormalities were noted either. She continues to run without any significant issues. She also mentioned that the symptoms never occur while she is running. Various conditions including neuralgia were discussed with Jeannine today. I have recommended that we have this further evaluated by Dr. Foster at our PMR department. She agrees with the plan. No workup from my side has been recommended for now and she agrees with the plan. Vinod Orr/suly Electronically Signed By: CARLOS VANG MD On: 12/12/2014 03:18 PM Source: [facility] MHSDOLBEYNONRADSYS Document Id: [id number] documented in this encounter Miscellaneous Notes Miscellaneous - Conversion, Historical Provider Ser - 11/29/2014 4:18 PM CDT PHQ-9 PHQ-9 Entered On: 11/29/2014 16:18 CDT Performed On: 11/29/2014 16:18 CDT by DINO FONTENOT LPN PHQ-9 Little interest or pleasure in doing things : Not at all Feeling down, depressed, or hopeless : Not at all Trouble falling or staying asleep, or sleeping too much : Several days Feeling tired or having little energy : Several days Poor appetite or overeating : Not at all Feeling bad about yourself or that you are a failure : Not at all Trouble concentrating on things : Several days Moving or speaking slowly; restless or fidgety : Not at all Thoughts that you would be better off /hurting self : Not at all PHQ-9 Calculated Score : 3 DINO FONTENOT LPN - 11/29/2014 16:18 CDT Source: [facility] POWERCHART Document Id: [id number] CDT!12 Miscellaneous - Carlos Vang M.D. - 11/29/2014 3:20 PM CDT Ambulatory Patient Summary [facility] [facility] [address] [place] [id number] Visit Information Name: ROMAN JEANNINE LYNN [facility] Number: [id number] Current Date: 11/29/2014 15:20:57 Physicians Attending Provider: CARLOS VANG MD Primary [...] 1 tab(s) PO DAILY AM AND NOON. / (Adderal) please call pt for supervisor opening and picking. Pt uses [facility]. *HYDROcodone-acetaminophen (HYDROcodone-acetaminophen 5 mg-325 mg oral tablet) 1 Tablet(s), Oral, every 8 hours as needed for Pain No more than 4,000mg acetaminophen/24hrs ibuprofen (ibuprofen) multivitamin with minerals (multivitamin with minerals Multiple Vitamins with Zinc oral capsule) 1 cap, Oral, once a day with magnesium * You have let us know that you are not taking this medication as listed. Please talk with your primary care provider or the health care provider who prescribed the medication as soon as possible. Stop Taking the Following Medications: Medication list as of 11-29-14 15:20 Attention: If you have any medications at [...] Electronically Signed By: CARLOS VANG MD Signed On:29-NOV-2014 15:19:57 Your Allergies & Intolerances Substance Reaction Symptoms [...] online form. Youll be asked for your [facility] number which you can find at the top of this document. Your Goals/Additional instructions: Source: [facility] POWERCHART Document Id: [id number] Miscellaneous - Carlos Vang M.D. - 11/29/2014 3:20 PM CDT Ambulatory Discharge Medication List [address] [place], [place] [id number] Visit Information Name: JEANNINE OWENS [facility] Number: [id number] Visit Date: 11/29/2014 15:20:56 Attending Provider: CARLOS VANG MD Primary Care Provider: CARLOS VANG MD JEANNINE OEWNS has been given the following list of [...] 1 tab(s) PO DAILY AM AND NOON. / (Adderal) please call pt for supervisor opening and picking. Pt uses [facility]. *HYDROcodone-acetaminophen (HYDROcodone-acetaminophen 5 mg-325 mg oral tablet) 1 Tablet(s), Oral, every 8 hours as needed for Pain No more than 4,000mg acetaminophen/24hrs ibuprofen (ibuprofen) multivitamin with minerals (multivitamin with minerals Multiple Vitamins with Zinc oral capsule) 1 cap, Oral, once a day with magnesium * You have let us know that you are not taking this medication as listed. Please talk with your primary care provider or the health care provider who prescribed the medication as soon as possible. Stop Taking the Following Medications: Medication list as of 11-29-14 15:20 Attention: If you have any medications at [...] Electronically Signed By: CARLOS VANG MD Signed On:29-NOV-2014 15:19:57 Additional Information: Source: [facility] POWERCHART Document Id: [id number] Miscellaneous - Conversion, Historical Provider Ser - 11/29/2014 2:46 PM CDT Adult Director Of Analytical Development Intake/History Adult Director Of Analytical Development Intake/History Entered On: 11/29/2014 14:48 CDT Performed On: 11/29/2014 14:46 CDT by DINO FONTENOT LPN Intake Chief Complaint : left leg swelling/ pain Temperature Core : 37.2 DegC(Converted to: 99.0 DegF) Peripheral Pulse Rate : 76 /min Systolic Blood Pressure : 110 mmHg Diastolic Blood Pressure : 70 mmHg NIBP Mean : 83 mmHg Height : 166 cm(Converted to: 5 ft 5 inch(es), 65 inch(es)) Actual Weight : 59.1 kg(Converted to: 130 lb 5 oz) Dosing Weight Clinic : 59.1 kg Clinic BSA : 1.65 Body Mass Index : 21.45 kg/m2 DINO FONTENOT LPN - 11/29/2014 14:46 CDT General Info Information Given By : Patient Languages : Danish Is Patient Female and 13-50 no hysterectomy : No DINO FONTENOT LPN - 11/29/2014 14:46 CDT Subjective Pain Symptoms : No DINO FONTENOT LPN - 11/29/2014 14:46 CDT Dependent Habits Tobacco Use/Currently Using : No Exposure to Tobacco Smoke : Care provider denies smoking in home Smoking Status : Never smoker DINO FONTENOT LPN - 11/29/2014 14:46 CDT Caffeine Use Grid Caffeine Use : Current Type : Soft drinks Frequency : Weekly Amount : 3 cans per week DINO FONTENOT LPN - 11/29/2014 14:46 CDT Recreational Drug Use Grid Drug Use : None DINO FONTENOT LPN - 11/29/2014 14:46 CDT Source: [employer] POWERCHART Document Id: [id number] CDT!32 documented in this encounter Plan of Treatment Not on filedocumented as of this encounter Visit Diagnoses Not on filedocumented in this encounter Additional Health Concerns Assessment Noted Time PHQ-9 Depression Total Score: 3 11/29/2014 4:18 PM CDT documented as of this encounter
--- OUTSIDE RECORDS SUMMARY | 2021-12-10 15:37 | XMS_ITS | Encounter Summary ---
:1980 Author Organization [facility] Address [address] [place] [address] Care Team Providers Name Role Phone Unavailable Primary Care Provider Unavailable Encounter Details Date Type Department Care Team Description 03/01/2015 Hospital Encounter HX [facility] Carlos Nolan M.D. 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 0 07/16/2014 IBUPROFEN ORAL ibuprofen 0 07/16/2014 MULTIVITAMIN WITH MINERALS Take 1 capsule by 0 ORAL mouth daily. documented as of this encounter Nursing Notes Jeri Rodriguez - 03/01/2015 3:03 PM CST Nurse Only Documentation Nurse Only Documentation Entered On: 03/01/2015 15:03 GREENKEEPER Performed On: 03/01/2015 15:03 GREENKEEPER by JERI RODRIGUEZ Nurse Only Documentation Nurse Only Visit Documentation : Mantoux screening test applied right mid forearm at 1453. Will return in 48-72 hrs to be read. JERI RODRIGUEZ - 03/01/2015 15:03 GREENKEEPER Source: [facility] POWERCHART Document Id: [id number] GREENKEEPER!3 NKEEPER documented in this encounter Miscellaneous Notes Miscellaneous - Jeri Rodriguez - 03/01/2015 3:01 PM CST PPD Screen PPD Screen Entered On: 03/01/2015 15:01 GREENKEEPER Performed On: 03/01/2015 15:01 GREENKEEPER by JERI RODRIGUEZ [facility] PPD Screening PPD Screening Grid Severe reaction to previous TST (necrosis, blistering, anaphylactic shock, or ulcerations) : No Smallpox vaccine within last 4 - 6 weeks : No Yellow Fever vaccine in last 4 - 6 weeks : No Varicella vaccine within last 4 - 6 weeks : No Measles vaccine within last 4 - 6 weeks : No Any live virus vaccine within last 4 - 6 weeks : No JERI RODRIGUEZ [facility] - 03/01/2015 15:01 GREENKEEPER [facility] Document Id: [id number] GREENKEEPER!9 NKEEPER documented in this encounter Plan of Treatment Not on filedocumented as of this encounter Visit Diagnoses Not on filedocumented in this encounter Additional Health Concerns Assessment Noted Time PHQ-9 Depression Total Score: 3 11/29/2014 4:18 PM CDT documented as of this encounter
--- OUTSIDE RECORDS SUMMARY | 2021-12-10 15:37 | XMS_ITS | Encounter Summary ---
:[address] [facility] Address [address] [place] [address] Care Team Providers Name Role Phone Unavailable Primary Care Provider Unavailable Encounter Details Date Type Department Care Team Description 07/10/2015 Hospital Encounter HX [facility] Carlos Vang M.D. [address] [place], [place] [address] (Wo rk) Social History Tobacco Use Types Packs/Day Years Used Date Smoking Tobacco: Never Assessed Sex Assigned at Date Recorded Female 04/15/2017 7:38 PM [employer] documented as of this encounter Last Filed Vital Signs Vital Sign Reading Time Taken Comments Blood Pressure 122/84 07/10/2015 1:37 PM CDT Pulse 88 07/10/2015 1:37 PM CDT Temperature - - Respiratory Rate - - Oxygen Saturation - - Inhaled Oxygen Concentration - - Weight 58.2 kg (128 lb 4.9 oz) 07/10/2015 1:37 PM CDT Height 166 cm (5' 5.35) 07/10/2015 1:37 PM CDT Body Mass Index 21.12 07/10/2015 1:37 PM CDT documented in this encounter Medications at Time of Discharge Medication Sig Dispensed Refills Start Date End Date ACETAMINOPHEN ORAL Take by mouth. 0 07/16/2014 IBUPROFEN ORAL ibuprofen 0 07/16/2014 MULTIVITAMIN WITH MINERALS Take 1 capsule by 0 ORAL mouth daily. documented as of this encounter Progress Notes Carlos Vang M.D. - 07/10/2015 1:18 PM CDT [id number] CHIEF COMPLAINT/REASON FOR VISIT 1. Gastroenteritis. 2. Headache. 3. Abnormal blood test. HISTORY OF PRESENT ILLNESS Denice comes in today as a followup. She was recently evaluated in the ER on 06/23/2015 after she started having a bout of possible gastroenteritis with significant nausea and vomiting. She says that she had multiple episodes of vomiting and that is when she passed out for a moment. She was evaluatedin the ER and fluid was provided. Denice comes in today as a followup. She says she has been feeling a lot better. She declines any symptoms of nausea, vomiting, chest pain or shortness of breath. She would like to, however, be evaluated further regarding her abnormal glucose level. During the ER visit, her glucose level was noted to be high at 161. Of note, she was getting dextrose 5 fluid for rehydration. Denice says that she has been doing significantly better since her injection in the occipital areafor her ongoing headache. She continues to use oxycodone as needed. Recently, she was started on Midrin which did not agree with her. She has not taken that. She would like to know if there are any other options to help her with some breakthrough pain in the future. PAST MEDICAL/SURGICAL HISTORY Reviewed on 07/10/2015. SOCIAL HISTORY Reviewed on 07/10/2015. FAMILY HISTORY Reviewed on 07/10/2015. MEDICATIONS Reviewed on 07/10/2015. ALLERGIES Reviewed on 07/10/2015. SYSTEMS REVIEW As above. All other systems reviewed are negative. EXAMINATION VITAL SIGNS: Reviewed. GENERAL: In no apparent distress, comfortable and cooperative. HEENT: Normocephalic, atraumatic. EOMI. PERRL. No conjunctival injection. Nose patent bilaterally without erythema or drainage. Oropharynx: [place] mucous membranes without lesions, exudate or drainage. NECK: Supple without lymphadenopathy. No thyromegaly or thyroid masses. CARDIOVASCULAR: Regular rate and rhythm without murmur, gallop or rubs. LUNGS: Clear to auscultation bilaterally without wheezing or rales. ABDOMEN: Soft, nontender and nondistended. Normal active positive bowel sounds. No hepatosplenomegaly or masses appreciated. EXTREMITIES: No clubbing, cyanosis or edema. IMPRESSION/REPORT/PLAN 1. Gastroenteritis, acute. Denice currently seems to be doing very well symptomatically. No further workup will be recommended. Benefits of adequate hydration as well as proper hygiene were discussed. 2. Abnormal blood test. I have currently sent Denice to get her fasting comprehensive metabolic panel checked. This will be updated once the report comes back. 3. Headache/migraine. Management options were discussed. She did not agree with the side effects of Midrin. I have started her on butalbital/acetaminophen without caffeine to be used every 6 hours as needed. I also recommend that she try to limit the dose of Percocet for now. She agrees with the plan.She does have an upcoming visit with her neurologist next month. Vinod Orr/suly Electronically Signed By: CARLOS VANG MD On: 07/15/2015 07:37 PM Source: [facility] [email or web address] Document Id: [id number] documented in this encounter Miscellaneous Notes Miscellaneous - Maame Grimaldo L.PCinthiaN. - 07/10/2015 3:55 PM CDT PHQ-9 PHQ-9 Entered On: 07/10/2015 15:56 CDT Performed On: 07/10/2015 15:55 CDT by MAAME GRIMALDO LPN PHQ-9 Little interest or pleasure in [...] with others : Not difficult at all MAAME GRIMALDO LPN - 07/10/2015 15:55 CDT Source: [facility] POWERCHART Document Id: [id number] CDT!13 Miscellaneous - Carlos Vang M.D. - 07/10/2015 2:06 PM CDT Ambulatory Patient Summary [place] [place], [place] [id number] Visit Information Name: ROMAN DENICE LYNN [facility] Number: [id number] Current Date: 07/10/2015 14:06:37 Physicians Attending Provider: CARLOS VANG MD Primary [...] 1 oliver, Topical, two times a day butalbital-acetaminophen (butalbital-acetaminophen 50 mg-325 mg oral tablet) 2 Tablet(s), Oral, every 6 hours as needed for pain x 5 day(s) Routed to [employer] dextroamphetamine-amphetamine (dextroamphetamine-amphetamine 5 mg oral tablet) See Instructions 1 tab(s) PO DAILY AM AND NOON. Ok to fill 30 days after the last visit. / (Adderal) please call pt for tack picker. Pt uses Miiix. ibuprofen (ibuprofen) indomethacin (indomethacin 25 mg oral capsule) 2 cap, Oral, three times a day as needed for Pain Take with food *isometheptene/dichloralphenazon/acetaminophen (Midrin oral capsule) See Instructions 2 capsules once followed by 1 capsule every 2 hour up to 5 capsules per 24 hour period multivitamin with minerals (multivitamin with minerals Multiple Vitamins with Zinc oral capsule) 1 cap, Oral, once a day with magnesium ondansetron (ondansetron 4 mg oral tablet, disintegrating) 1 Tablet(s), Oral, four times a day as needed for Nausea oxyCODONE-acetaminophen (Percocet 5/325 oral tablet) 1 to 2 tablets, Oral, once a day (at bedtime) as needed for Pain No more than 4,000mg acetaminophen/24hrs * You have let us know that you are not taking this medication as listed. Please talk with your primary care provider or the health care provider who prescribed the medication as soon as possible. Stop Taking the Following Medications: Medication list as of 07-10-15 14:06 Attention: If you have any medications at [...] Electronically Signed By: CARLOS VANG MD Signed On:10-JUL-2015 14:06:31 Your Allergies & Intolerances Substance Reaction Symptoms [...] Your Upcoming Appointments Date Time Location Provider 08/19/2015 08:15 [facility] Erin MARTINEZ, Tamara Attention: Contact your local Clinic if further appointment detail needed. Consider Using Patient Online Services Patient Online [employer] is a secure online and Mobile application that lets you: ?? View lab and test results ?? View portions of your medical record including clinical notes, immunizations and discharge summaries ?? Requestan appointment or medication refill ?? Review your appointment schedule ?? Send secure messages to your care team Its easy to create an account if you dont have one. Go to [email or web address] and click on Create Your Account. Then, follow the directions to complete the online form. Youll be asked for your [facility] number which you can find at the top of this document. Your Goals/Additional instructions: Source: [facility] POWERCHART Document Id: [id number] Miscellaneous - Carlos Vang M.D. - 07/10/2015 2:06 PM CDT Ambulatory Discharge Medication List [address] [id number] Visit Information Name: DENICE OWENS [facility] Number: [id number] Visit Date: 07/10/2015 14:06:36 Attending Provider: CARLOS VANG MD Primary Care [...] 1 oliver, Topical, two times a day butalbital-acetaminophen (butalbital-acetaminophen 50 mg-325 mg oral tablet) 2 Tablet(s), Oral, every 6 hours as needed for pain x 5 day(s) Routed to [employer] dextroamphetamine-amphetamine (dextroamphetamine-amphetamine 5 mg oral tablet) See Instructions 1 tab(s) PO DAILY AM AND NOON. Ok to fill 30 days after the last visit. / (Adderal) please call pt for tack picker. Pt uses Miiix. ibuprofen (ibuprofen) indomethacin (indomethacin 25 mg oral capsule) 2 cap, Oral, three times a day as needed for Pain Take with food *isometheptene/dichloralphenazon/acetaminophen (Midrin oral capsule) See Instructions 2 capsules once followed by 1 capsule every 2 hour up to 5 capsules per 24 hour period multivitamin with minerals (multivitamin with minerals Multiple Vitamins with Zinc oral capsule) 1 cap, Oral, once a day with magnesium ondansetron (ondansetron 4 mg oral tablet, disintegrating) 1 Tablet(s), Oral, four times a day as needed for Nausea oxyCODONE-acetaminophen (Percocet 5/325 oral tablet) 1 to 2 tablets, Oral, once a day (at bedtime) as needed for Pain No more than 4,000mg acetaminophen/24hrs * You have let us know that you are not taking this medication as listed. Please talk with your primary care provider or the health care provider who prescribed the medication as soon as possible. Stop Taking the Following Medications: Medication list as of 07-10-15 14:06 Attention: If you have any medications at [...] Electronically Signed By: CARLOS VANG MD Signed On:10-JUL-2015 14:06:31 Additional Information: Source: [facility] POWERCHART Document Id: [id number] Miscellaneous - Maame Grimaldo, L.P.N. 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 Intake/History Entered On: 07/10/2015 13:39 CDT Performed On: 07/10/2015 13:37 CDT by MAAME GRIMALDO LPN Intake Chief Complaint : ER f/u-syncope, BS mars, CHRISTINE f/u Temperature Core : 36.4 DegC(Converted to: 97.5 DegF) (LOW) Peripheral Pulse Rate : 88 /min Systolic Blood Pressure : 122 mmHg Diastolic Blood Pressure : 84 mmHg NIBP Mean : 97 mmHg BP Location : Right upper extremity Blood Pressure Cuff Size : Regular Height : 166 cm(Converted to: 5 ft 5 inch(es), 65 inch(es)) Actual Weight : 58.2 kg(Converted to: 128 lb 5 oz) Dosing Weight Clinic : 58.2 kg Clinic BSA : 1.64 Body Mass Index : 21.12 kg/m2 MAAME GRIMALDO LPN - 07/10/2015 13:37 CDT General Info Languages : Indonesian Is Patient Female and 13-50 no hysterectomy : No MAAME GRIMALDO LPN - 07/10/2015 13:37 CDT Subjective Pain Symptoms : No MAAME GRIMALDO LPN - 07/10/2015 13:37 CDT Dependent Habits Exposure to Tobacco Smoke : Care provider denies smoking in home, Other: NEVER Smoking Status : Never smoker Tobacco 2A : No Tobacco Use/Currently Using : No Tobacco Use/Last 30 Days : No Tobacco Use/Last 12 months : No MAAME GRIMALDO LPN - 07/10/2015 13:37 CDT Caffeine Use Grid Caffeine Use : Current Type : Soft drinks Frequency : Weekly Amount : 3 cans per week MAAME GRIMALDO LPN - 07/10/2015 13:37 CDT Recreational Drug Use Grid Drug Use : None MAAME GRIMALDO LPN - 07/10/2015 13:37 CDT Source: [email or web address] Document Id: [id number] CDT!36 Miscellaneous - Maame Grimaldo, L.P.N. - 07/10/2015 1:37 PM CDT Health Assessment Health Assessment Entered On: 07/10/2015 13:40 CDT Performed On: 07/10/2015 13:37 CDT by MAAME GRIMALDO LPN Health Assessment Complete Health Assessment Complete or Modified : Annual Health Assessment Annual Health Assessment Completed : Yes MAAME GRIMALDO LPN - 07/10/2015 13:37 CDT Nutrition Nutrition Risk Factors by History Adult : None MAAME GRIMALDO LPN - 07/10/2015 13:37 CDT Functional Current Daily Living Assistance : None MAAME GRIMALDO LPN - 07/10/2015 13:37 CDT Dependent Habits Exposure to Tobacco Smoke : Care provider denies smoking in home, Other: NEVER Smoking Status : Never smoker Tobacco 2A : No Tobacco Use/Currently Using : No Tobacco Use/Last 30 Days : No Tobacco Use/Last 12 months : No MAAME GRIMALDO ELEAZAR - 07/10/2015 13:37 CDT Caffeine Use Grid Caffeine Use : Current Type : Soft drinks Frequency : Weekly Amount : 3 cans per week MAAME GRIMALDO ELEAZAR - 07/10/2015 13:37 CDT Alcohol Use : Yes MAAME GRIMALDO ELEAZAR - 07/10/2015 13:37 CDT Recreational Drug Use Grid Drug Use : None MAAME GRIMALDO ELEAZAR - 07/10/2015 13:37 CDT AUDIT Tool How Often Do You Have A Drink : 2 to 4 times a month How Many Drinks in a Day When Drinking : 1 or 2 Six or More Drinks On One Occassion : Never Audit Phase 1 Score : 2 MAAME GRIMALDO ELEAZAR - 07/10/2015 13:37 CDT Psychosocial Domestic Abuse Concerns : None Behavioral Health Screen/Safety Assmt : No Shinto Preference : Celia MAAME GRIMALDO Marcelina BUSH - 07/10/2015 13:37 CDT Advance Directive Advanced Directives : No Advance Directive Additional Information : No MAAME GRIMALDO Marcelina BUSH - 07/10/2015 13:37 CDT Educ Needs Learning Style Preference Adult Grid Patient : None Family : None MAAME GRIMALDO Marcelina BUSH - 07/10/2015 13:37 CDT Source: [email or web address] Document Id: [id number] CDT!41 documented in this encounter Plan of Treatment Not on filedocumented as of this encounter Visit Diagnoses Not on filedocumented in this encounter Additional Health Concerns Assessment Noted Time PHQ-9 Depression Total Score: 2 07/10/2015 3:55 PM CDT documented as of this encounter
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
--- OUTSIDE RECORDS SUMMARY | 2021-12-10 15:37 | XMS_ITS | Encounter Summary ---
:1980 Author Organization [facility] Address [address] [place] [address] Care Team Providers Name Role Phone Unavailable Primary Care Provider Unavailable Encounter Details Date Type Department Care Team Description 12/16/2015 Hospital Encounter HX [facility] Phan Pfeiffer M .D. 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 0 07/16/2014 IBUPROFEN ORAL ibuprofen 0 07/16/2014 MULTIVITAMIN WITH MINERALS Take 1 capsule by 0 ORAL mouth daily. documented as of this encounter Procedure Notes Phan Pfeiffer M.D. - 12/16/2015 8:51 AM CDT Occipital nerve block PROCEDURAL PAUSE Procedural pause conducted to verify: [...] 3 mL bupivacaine and i mL of Depomedrol was injected in right side. She had complete relief of his space pressure and neck tenderness. Tolerated the injection well. Patient is allergic to Toradol so was not injected. INFORMED CONSENT Discussed the risks, benefits, alternatives, and the necessity of other members of the healthcare team participating in the procedure. All questions answered and consent given. IMPRESSION/REPORT/PLAN Chronic headaches with occipital neuralgia Electronically Signed By: PHAN PFEIFFER MD On: 12/16/2015 08:53 AM Source: [facility] POWERCHART Document Id: [id number] documented in this encounter Miscellaneous Notes Miscellaneous - Conversion, Historical Provider Ser - 01/07/2016 11:53 AM CDT [facility] Document Contains Addenda Addendum by HOMERO SORENSEN LPN on January 08, 2016 10:11:23 CDT Rx ready and taken to bin for pharmacy picking tech Addendum by YOBANY VANG MD on January 08, 2016 07:07:06 CDT From: YOBANY VANG MD Sent: 01/08/2016 07:07:06 CDT Subject: RE:adderall Approved Order:dextroamphetamine-amphetamine (dextroamphetamine-amphetamine 5 mg oral tablet) See Instructions 1 tab(s) PO DAILY AM AND NOON. Ok to fill 30 days after the last visit. Qty: 60 tab(s) Refills: 0 Substitutions Allowed Print - [id number] (Adderal) please call pt for pharmacy picking tech. Pt [facility]. Signed by YOBANY VANG MD 01/08/2016 07:07:03 Addendum by HOMERO SORENSEN LPN on January 07, 2016 13:51:09 CDT From: HOMERO SORENSEN LPN ([facility] Family Medicine Team 1 Nurse) To: YOBANY VANG MD; Sent: 01/07/2016 13:51:09 CDT Subject: adderall On hold pending signature Order:dextroamphetamine-amphetamine (dextroamphetamine-amphetamine 5 mg oral tablet) See Instructions 1 tab(s) PO DAILY AM AND NOON. Ok to fill 30 days after the last visit. Qty: 60 tab(s) Refills: 0 Substitutions Allowed Print - [id number] (Adderal) please call pt for pharmacy picking tech. [facility]. From: MILAGRO WATSON ([facility] Family Medicine Career Technical Education Teacher) To: [facility] Family Medicine Team 1 Nurse; Sent: 01/07/2016 11:53:45 CDT Subject: [facility] Caller Name/Relationship: Self Facility: Call Back #:[phone] Reason for Call:Patient needs refill of Adderall. Madi hall. Source: [facility] POWERCHART Document Id: [id number] Miscellaneous - Phan Pfeiffer M.D. - 12/16/2015 8:55 AM CDT Ambulatory Patient Summary [place] [address] [place] [id number] Visit Information Name: JEANNINE OWENS [facility] Number: [id number] Current Date: 12/16/2015 08:55:46 Physicians Attending Provider: PHAN PFEIFFER MD Primary [...] visit. / (Adderal) please call pt for pharmacy picking tech. Pt uses [facility]. dihydroergotamine (dihydroergotamine 4 mg/mL nasal spray) 1 [place](s), Nostrils(Both), as needed as needed for Migraine headache Can repeat dose after 15 minutes if migraine persists. *DULoxetine (Cymbalta 20 mg oral delayed release capsule) [...] the Following Medications: Medication list as of 12-16-15 08:55 Attention: If you have any medications at [...] Electronically Signed By: PHAN PFEIFFER MD Signed On:16-DEC-2015 08:55:43 Your Allergies & Intolerances Substance Reaction Symptoms [...] if you dont have one. Go to [email or web address] and click on Create Your Account. Then, follow the directions to complete the online form. Youll be asked for your [facility] number which you can find at the top of this document. Your Goals/Additional instructions: Source: [facility] POWERCHART Document Id: [id number] Miscellaneous - Phan Pfeiffer M.D. - 12/16/2015 8:55 AM CDT Ambulatory Discharge Medication List [place] [place], [place] [id number] Visit Information Name: JEANNINE OWENS [facility] Number: [id number] Visit Date: 12/16/2015 08:55:45 Attending Provider: PHAN PFEIFFER MD Primary Care [...] visit. / (Adderal) please call pt for pharmacy picking tech. Pt uses [facility]. dihydroergotamine (dihydroergotamine 4 mg/mL nasal spray) 1 [place](s), Nostrils(Both), as needed as needed for Migraine headache Can repeat dose after 15 minutes if migraine persists. *DULoxetine (Cymbalta 20 mg oral delayed release capsule) [...] the Following Medications: Medication list as of 12-16-15 08:55 Attention: If you have any medications at [...] Electronically Signed By: PHAN PFEIFFER MD Signed On:16-DEC-2015 08:55:43 Additional Information: Source: [facility] POWERCHART Document Id: [id number] Miscellaneous - Nanci Rudolph L.PCinthiaNCinthia - 12/16/2015 8:21 AM CDT Adult Steam Trap Man Intake/History Adult Steam Trap Man Intake/History Entered On: 12/16/2015 8:23 CDT Performed On: 12/16/2015 8:21 CDT by NANCI RUDOLPH Intake Chief Complaint : Recheck Headaches Peripheral Pulse Rate : 62 /min Systolic Blood Pressure : 110 mmHg Diastolic Blood Pressure : 70 mmHg NIBP Mean : 83 mmHg BP Location : Right upper extremity Blood Pressure Cuff Size : Large Height : 166 cm(Converted to: 5 ft 5 inch(es), 65 inch(es)) Actual Weight : 59.8 kg(Converted to: 131 lb 13 oz) Dosing Weight Clinic : 59.8 kg Clinic BSA : 1.66 Body Mass Index : 21.7 kg/m2 NANCI RUDOLPH - 12/16/2015 8:21 CDT General Info Information Given By : Patient Languages : Slovak Is Patient Female and 13-50 no hysterectomy : No NANCI RUDOLPH - 12/16/2015 8:21 CDT Subjective Pain Symptoms : Yes NANCI RUDOLPH - 12/16/2015 8:21 CDT Pain Scale Pain Scale Verbal 0-10 : Open NANCI RUDOLPH - 12/16/2015 8:21 CDT Pain Pain Assessment Grid Pain 1 Location : Other: Headache Intensity : 5 NANCI RUDOLPH - 12/16/2015 8:21 CDT Dependent Habits Exposure to Tobacco Smoke : Care provider denies smoking in home, Other: NEVER Smoking Status : Never smoker Tobacco 2A : No Tobacco Use/Currently Using : No Tobacco Use/Last 30 Days : No Tobacco Use/Last 12 months : No Alcohol Use : Yes NANCI RUDOLPH - 12/16/2015 8:21 CDT Caffeine Use Grid Caffeine Use : Current Type : Soft drinks Frequency : Weekly Amount : 3 cans per week NANCI RUDOLPH - 12/16/2015 8:21 CDT Recreational Drug Use Grid Drug Use : None NANCI RUDOLPH - 12/16/2015 8:21 CDT Source: [facility] POWERCHART Document Id: [id number] CDT!44 documented in this encounter Plan of Treatment Not on filedocumented as of this encounter Visit Diagnoses Not on filedocumented in this encounter Additional Health Concerns Assessment Noted Time PHQ-9 Depression Total Score: 2 07/10/2015 3:55 PM CDT documented as of this encounter
--- OUTSIDE RECORDS SUMMARY | 2021-12-10 15:37 | XMS_ITS | Encounter Summary ---
:1980 Author Organization [facility] Address [address] [place] [address] Care Team Providers Name Role Phone Unavailable Primary Care Provider Unavailable Encounter Details Date Type Department Care Team Description 01/15/2016 Hospital Encounter [facility]X [facility] Marcelina Esquivel, NGHIA, C.N.P., FN [facility] [address] [place] [address] (Wo rk) Social History Tobacco Use Types Packs/Day Years Used Date Smoking Tobacco: Never Assessed Sex Assigned at Date Recorded Female 04/15/2017 7:38 PM [employer]ER [employer]ER documented as of this encounter Last Filed Vital Signs Vital Sign Reading Time Taken Comments Blood Pressure 143/99 01/15/2016 5:39 PM CDT Pulse - - Temperature - - Respiratory Rate 14 01/15/2016 5:37 PM CDT Oxygen Saturation - - Inhaled Oxygen Concentration - - Weight - - Height 166 cm (5' 5.35) 01/15/2016 5:39 PM CDT Body Mass Index - - documented in this encounter Medications at Time of Discharge Medication Sig Dispensed Refills Start Date End Date ACETAMINOPHEN ORAL Take by mouth. 0 07/16/2014 IBUPROFEN ORAL ibuprofen 0 07/16/2014 MULTIVITAMIN WITH MINERALS Take 1 capsule by 0 ORAL mouth daily. documented as of this encounter Progress Notes Kristin Esquivel, C.N.P. - 01/15/2016 5:23 PM CDT [id number] CHIEF COMPLAINT/REASON FOR VISIT UTI. HISTORY OF PRESENT ILLNESS Patient states she has had urinary frequency and burning for about one week. She has been trying to increase her fluids to help with her symptoms. She noticed some back pain on the left flank this afternoon. States the pain does radiate to the front to the left abdomen. The pain is a 6 out of 10. She has tried ibuprofen for this. Denies any fever, vomiting. However, she does have some nausea, no diarrhea. Denies any vaginal discharge. Denies being . She has had a hysterectomy. Has had a kidney infection, patient states in the remote past. PAST MEDICAL/SURGICAL HISTORY Reviewed. ALLERGIES Reviewed. MEDICATIONS Reviewed. PHYSICAL EXAMINATION VITAL SIGNS: 151/94, 36.7 temp, pulse 100, respirations 14, sats 99. GENERAL: Patient appears to be in no acute distress. SKIN: Warm, dry, and pink. HEART: Rate regular. LUNGS: Sound clear. ABDOMEN: Soft, nontender. Bowel sounds active. CVA tenderness on the left. DIAGNOSTICS Urinalysis positive for blood, leukocyte esterase, WBCs, RBCs, and bacteria present. A culture is pending at present. IMPRESSION/REPORT/PLAN Urinary tract infection. We will treat with Bactrim 2 times a day for 7 days. Tylenol or Motrin as needed. Discussion with patient, I have some concern because she has pain in the left flank area, which radiates to the front. This possibly could indicate a kidney stone. If pain worsens or if there is no improvement, if she gets a fever or she gets nausea and vomiting or generally feels worse, she must return for reevaluation and possibly evaluate for stone at the time. Patient is understanding of instructions. Caitlin Duff/suly Electronically Signed By: KRISTIN ESQUIVEL [facility] On: 01/17/2016 07:49 AM Source: [facility] MHSDOLBEYNONRADSYS Document Id: [id number] documented in this encounter Nursing Notes Kristin Esquivel C.NBk. - 01/15/2016 5:57 PM CDT Ambulatory Patient Education The following Patient Education Materials have been given to the patient: Patient Education Materials: Ambulatory BLADDER INFECTION, Female (Adult) Ambulatory Bladder Infection, Female (Adult) A bladder infection (cystitis or UTI) usually causes a constant urge to urinate and a burning when passing urine. Urine may be cloudy, smelly or dark. There may be pain in the lower abdomen. A bladder infection occurs when bacteria from the vaginal area enter the bladder opening (urethra). This can occur from sexual intercourse, wearing tight clothing, dehydration and other factors. Home Care: ?? Drink lots of fluids (at least 6-8 glasses a day, unless you must restrict fluids for other medical reasons). This will force the medicine into your urinary system and flush the bacteria out of yourbody. ?? Avoid sexual intercourse until your symptoms are gone. ?? Avoid caffeine, alcohol and spicy foods. These can irritate the bladder. ?? A bladder infection is treated with antibiotics. You may also be given Pyridium (generic = phenazopyridine) to reduce the burning sensation. This medicine will cause your urine to become a bright orange color. The orange urine may stain clothing. You may wear a pad or panty-liner to protect clothing. Preventing Future Infections: ?? Always wipe from front to back after a bowel movement. ?? Keep the genital area clean and dry. ?? Drink plenty of fluids each day to avoid dehydration. ?? Both sexual partners should wash before intercourse. ?? Urinate right after intercourse to flush out the bladder. ?? Wear cotton underwear and cotton-lined panty hose; avoid tight-fitting pants. ?? If you are on control pills and are having frequent bladder infections, discuss with your doctor. Follow Up: Return to this facility or see your doctor if ALL symptoms are not gone after three days of treatment. Get Prompt Medical Attention if any of the following occur: ?? Fever of 100.4??F (38??C) or higher, or as directed by your healthcare provider ?? No improvement by the third day of treatment ?? Increasing back or abdominal pain ?? Repeated vomiting; unable to keep medicine down ?? Weakness, dizziness or fainting ?? Vaginal discharge ?? Pain, redness or swelling in the labia (outer vaginal area) ?? [phone] Alejandra Sullivan, [address] [place] [address], [place] [address]. All rights reserved. This information is not intended as a substitute for professional medical care. Always follow your healthcare professional's instructions. This document has images extracted. Please consider using OneBuild for all your patient education needs. Source: [facility] POWERCHART Document Id: [id number] documented in this encounter Miscellaneous Notes Miscellaneous - Kristin Esquivel C.N.P. - 01/15/2016 5:57 PM CDT Ambulatory Patient Summary [address] [place] [id number] Visit Information Name: DENICE OWENS [facility] Number: [phone] Current Date: 01/15/2016 17:57:45 Physicians Attending Provider: UNKNOWN1, PROVIDER Primary Care Provider: CARLOS VANG MD HARDYDENICE DOWNEY has been given the following list of follow-up instructions, medication list,and patient education materials: Follow-up Instructions With: Address: When: Follow up with primary care provider Within As Needed Your Medications Here is a list of [...] visit. 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 dihydroergotamine (dihydroergotamine 4 mg/mL nasal spray) 1 [place](s), Nostrils(Both), as needed as needed for Migraine [...] two times a day x 7 day(s) New Routed to [address] [id number] Stop Taking the Following Medications: Medication list as of 01-15-16 17:57 Attention: If you have any medications at home that are not on this list, DO NOT take them until youcontact your provider for clarification. Give a copy of your medication list to your primary care provider. Update your medication list any time medications or doses are changed and carry your medication list at all times in case of emergency. Electronically Signed By: KRISTIN ESQUIVEL Signed On:15-JAN-2016 17:57:04 Your Allergies & Intolerances Substance Reaction Symptoms [...] Your Upcoming Appointments Date Time Location Provider 01/16/2016 08:30 [facility] Ovidio MARTINEZ, Carlos Peña Attention:Contact your local Clinic if further appointment detail needed. Bladder Infection, Female (Adult) A bladder infection (cystitis or UTI) usually causes a constant urge to urinate and a burning when passing urine. Urine may be cloudy, smelly or dark. There may be pain in the lower abdomen. A bladder infection occurs when bacteria from the vaginal area enter the bladder opening (urethra). This can occur from sexual intercourse, wearing tight clothing, dehydration and other factors. Home Care: ?? Drink lots of fluids (at least 6-8 glasses a day, unless you must restrict fluids for other medical reasons). This will force the medicine into your urinary system and flush the bacteria out of yourbody. ?? Avoid sexual intercourse until your symptoms are gone. ?? Avoid caffeine, alcohol and spicy foods. These can irritate the bladder. ?? A bladder infection is treated with antibiotics. You may also be given Pyridium (generic = phenazopyridine) to reduce the burning sensation. This medicine will cause your urine to become a bright orange color. The orange urine may stain clothing. You may wear a pad or panty-liner to protect clothing. Preventing Future Infections: ?? Always wipe from front to back after a bowel movement. ?? Keep the genital area clean and dry. ?? Drink plenty of fluids each day to avoid dehydration. ?? Both sexual partners should wash before intercourse. ?? Urinate right after intercourse to flush out the bladder. ?? Wear cotton underwear and cotton-lined panty hose; avoid tight-fitting pants. ?? If you are on control pills and are having frequent bladder infections, discuss with your doctor. Follow Up: Return to this facility or see your doctor if ALL symptoms are not gone after three days of treatment. Get Prompt Medical Attention if any of the following occur: ?? Fever of 100.4?F (38?C) or higher, or as directed by your healthcare provider ?? No improvement by the third day of treatment ?? Increasing back or abdominal pain ?? Repeated vomiting; unable to keep medicine down ?? Weakness, dizziness or fainting ?? Vaginal discharge ?? Pain, redness or swelling in the labia (outer vaginal area) ?? [phone] Alejandra Sullivan, [address] [place] [address], [place] [address]. All rights reserved. This information is not intended as a substitute for professional medical care. Always follow your healthcare professional's instructions. Consider Using Patient Online Services Patient Online [...] if you dont have one. Go to [email or web address] and click on Create Your Account. Then, follow the directions to complete the online form. Youll be asked for your [facility] number which you can find at the top of this document. Your Goals/Additional instructions: This document has images extracted. Please consider using OneBuild for all your patient education needs. Source: [facility] POWERCHART Document Id: [id number] Miscellaneous - Kristin Esquivel C.NCinthiaP. - 01/15/2016 5:57 PM CDT Ambulatory Discharge Medication List [address] [id number] Visit Information Name: ANDREW OWENSHUGH GAYTANN [facility] Number: [phone] Visit Date: 01/15/2016 17:57:44 Attending Provider: UNKNOWN1, PROVIDER Primary Care Provider: [...] visit. 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 dihydroergotamine (dihydroergotamine 4 mg/mL nasal spray) 1 [place](s), Nostrils(Both), as needed as needed for Migraine [...] two times a day x 7 day(s) New Routed to [address] [phone] Stop Taking the Following Medications: Medication list as of 01-15-16 17:57 Attention: If you have any medications at home that are not on this list, DO NOT take them until youcontact your provider for clarification. Give a copy of your medication list to your primary care provider. Update your medication list any time medications or doses are changed and carry your medication list at all times in case of emergency. Electronically Signed By: KRISTIN ESQUIVEL [facility] Signed On:15-JAN-2016 17:57:04 Additional Information: Source: [facility] POWERCHART Document Id: [id number] Miscellaneous - Kay Pena, L.P.N. - 01/15/2016 5:39 PM CDT Ambulatory Vitals Height Weight Ambulatory Vitals Height Weight Entered On: 01/15/2016 17:40 CDT Performed On: 01/15/2016 17:39 CDT by KAY PENA Vitals/Ht/Wt Systolic Blood Pressure : 143 mmHg (HI) Diastolic Blood Pressure : 99 mmHg (>HHI) NIBP Mean : 114 mmHg Height : 166 cm(Converted to: 5 ft 5 inch(es), 65 inch(es)) KAY PENA SN - 01/15/2016 17:39 CDT Source: [facility] [employer] Document Id: [id number] CDT!6 Miscellaneous - Kay Pena L.P.N. 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 Has had symptoms for about a week. Temperature Core : 36.7 DegC(Converted to: 98.1 DegF) Apical Heart Rate : 100 /min Respiratory Rate : 14 /min Systolic Blood Pressure : 155 mmHg (HI) Diastolic Blood Pressure : 94 mmHg (>HHI) NIBP Mean : 114 mmHg BP Location : Right upper extremity Blood Pressure Cuff Size : Regular SpO2 : 99 % Oxygen Therapy : Room air Height : 166 cm(Converted to: 5 ft 5 inch(es), 65 inch(es)) KAY PENA - 01/15/2016 17:37 CDT General Info Information Given By : Patient Preferred Communication Mode : Verbal Languages : Thai Is Patient Female and 13-50 no hysterectomy : No KAY PENA - 01/15/2016 17:37 CDT Subjective Pain Symptoms : Yes KAY PENA - 01/15/2016 17:37 CDT Pain Scale Pain Scale Verbal 0-10 : Open KAY PENA - 01/15/2016 17:37 CDT Pain Pain Assessment Grid Pain 1 Location : Lower back Laterality : Left Intensity : 6 KAY PENA - 01/15/2016 17:37 CDT Dependent Habits Exposure to Tobacco Smoke : Care provider denies smoking in home, Other: NEVER Smoking Status : Never smoker Tobacco 2A : No Tobacco Use/Currently Using : No Tobacco Use/Last 30 Days : No Tobacco Use/Last 12 months : No KAY PENA - 01/15/2016 17:37 CDT Caffeine Use Grid Caffeine Use : Current Type : Soft drinks Frequency : Weekly Amount : 3 cans per week KAY PENA SN - 01/15/2016 17:37 CDT Recreational Drug Use Grid Drug Use : None KAY PENA SN - 01/15/2016 17:37 CDT Source: [facility] POWERCHART Document Id: [id number] CDT!45 documented in this encounter Plan of Treatment Not on filedocumented as of this encounter Procedures Procedure Name Priority Date/Time Associated Comments Diagnosis BACTERIAL CULTURE, Routine 01/15/2016 5:42 PM Res ults for this AEROBIC, URINE CDT procedure are in the results section. HXUR % DYSMORPHIC RBC Routine 01/15/2016 5:40 PM Results for this CDT procedure are i n the results section. URINALYSIS WITH Routine 01/15/2016 5:40 PM Result s for this MICROSCOPIC CDT procedure are i n the results section. documented in this encounter Results (ABNORMAL) Bacterial Culture, Aerobic, Urine (01/15/2016 5:42 PM CDT) Analysis Performed At Patho logist Time Signature Bacterial EC <=2 POWERCHART Culture, (POSITIVE) Aerobic, Urine HXPre EC POWERCHART Comment: >100,000 cfu/mL Escherichia coli Susceptibility to follow. HXFinal EC POWERCHART Comment: >100,000 cfu/mL Escherichia col i Specimen (Source) Anatomical Collection Method Collection Time Re ceived Time Location / / Volume Laterality Urine, First 01/15/2016 5:42 PM Voided CDT Organism Antibiotic Method Susceptibility Escherichia coli Ampicillin SUSCEPTIBILITY, ALICIA <=2: Suscep tible (MCG/ML) Escherichia coli Ampicillin + Sulbactam SUSCEPTIBILITY, ALICIA <=2: Susceptible (MCG/ML) Escherichia coli Aztreonam SUSCEPTIBILITY, ALICIA <=1: Suscep tible (MCG/ML) Escherichia coli Cefazolin SUSCEPTIBILITY, ALICIA <=4: Suscep tible (MCG/ML) Escherichia coli Cefepime SUSCEPTIBILITY, ALICIA <=1: Suscep tible (MCG/ML) Escherichia coli Ceftazidime SUSCEPTIBILITY, ALICIA <=1: Suscep tible (MCG/ML) Escherichia coli Ceftriaxone SUSCEPTIBILITY, ALICIA <=1: Suscep tible (MCG/ML) Escherichia coli ESBL Confirmation Test SUSCEPTIBILITY, ALICIA Neg: Negative (MCG/ML) Escherichia coli Ertapenem SUSCEPTIBILITY, ALICIA <=0.5: Susc eptible (MCG/ML) Escherichia coli Gentamicin SUSCEPTIBILITY, ALICIA <=1: Suscep tible (MCG/ML) Escherichia coli Levofloxacin SUSCEPTIBILITY, ALICIA <=0.12: Kavya ceptible (MCG/ML) Escherichia coli Meropenem SUSCEPTIBILITY, ALICIA <=0.25: Kavya ceptible (MCG/ML) Escherichia coli Nitrofurantoin SUSCEPTIBILITY, ALICIA <=16: Susce ptible (MCG/ML) Escherichia coli Piperacillin + Tazobactam SUSCEPTIBILITY, ALICIA < =4: Susceptible (MCG/ML) Escherichia coli Trimethoprim + SUSCEPTIBILITY, ALICIA <=20: Susce ptible Sulfamethoxazole (MCG/ML) Escherichia coli Tobramycin SUSCEPTIBILITY, ALICIA <=1: Suscep tible (MCG/ML) Kristin Esquivel APRN, C.N.P., [facility]-C LAB MICROBIOLOGY - GENERAL ORDERABLES Performing Organization Address City/[facility] Phon e Number POWERCHART HXUR % DYSMORPHIC RBC (01/15/2016 5:40 PM CDT) athologist Signature Dysmorphic RBC <=25 <=25 POWERCHART Specimen Anatomical Collection Method Collection Time Receive d Time (Source) Location / / Volume Laterality Urine, First 01/15/2016 5:40 PM 6 5:40 Voided CDT PM CDT Kristin Esquivel APRN, C.N.P., [facility]-C LAB HISTORICAL ORD ERS Performing Organization Address City/[facility] Phon e Number POWERCHART (ABNORMAL) Urinalysis, Complete, Includes Microscopic (01/15/2016 5:40 PM CDT) [facility] gist Method Time Signature Clarity Slightly Clear POWERCHART Cloudy (A) HXUr Color Colorless Colorless POWERCHART Specific 1.003 POWERCHART Merritt, POCT, U pH, POCT, Urine 6.0 <5.0 POWERCHART Protein, Ur, Trace Negative POWERCHART Dip MGDL Glucose Negative Negative POWERCHART MGDL Ketones, QL(U) Trace (A) Negative POWERCHART MGDL HXBILIRUBIN Negative Negative POWERCHART HXBLOOD Moderate (A) Negative POWERCHART Leukocyte Large (A) Negative POWERCHART Esterase HXNITRITE Negative Negative POWERCHART Urobilinogen 0.2 0.2 MGDL POWERCHART HXUR WBC. 51-100 (A) None Seen POWERCHART HPF HXUR RBC. 3-10 (A) None Seen POWERCHART HPF Squamous Occ-3 (A) None Seen POWERCHART Epithelial HPF HXUR Bacteria, Present (A) None Seen POWERCHART Specimen (Source) Anatomical Collection Method Collection Time Re ceived Time Location / / Volume Laterality Urine, First 01/15/2016 5:40 PM Voided CDT Kristin Esquivel APRN, C.N.P., [facility]-C LAB URINE ORDERABL ES Performing Organization Address City/State/ZIP Code Phon e Number POWERCHART documented in this encounter Visit Diagnoses Not on filedocumented in this encounter Additional Health Concerns Assessment Noted Time PHQ-9 Depression Total Score: 2 07/10/2015 3:55 PM CDT documented as of this encounter
--- OUTSIDE RECORDS SUMMARY | 2021-12-10 15:37 | XMS_ITS | Encounter Summary ---
:1980 Author Organization [facility] Address [address] [place] [address] Care Team Providers Name Role Phone Unavailable Primary Care Provider Unavailable Encounter Details Date Type Department Care Team Description 11/05/2015 Hospital Encounter HX 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 0 07/16/2014 IBUPROFEN ORAL ibuprofen 0 07/16/2014 MULTIVITAMIN WITH MINERALS Take 1 capsule by 0 ORAL mouth daily. documented as of this encounter Progress Notes Staci Gross, D.Abby - 11/05/2015 9:58 AM CDT [id number] CHIEF COMPLAINT/REASON FOR VISIT Follow up on pelvic pain. HISTORY OF PRESENT ILLNESS Denice is a 35-year-old female who had a hysterectomy in June 2014 with bilateral salpingectomy. She reports today for an ultrasound to evaluate intermittent chronic right pelvic pain. Additionally,she has a scheduled mammogram to evaluate her left breast pain. She reports that after her clinical breast exam she did experience increased tenderness in the left breast. ALLERGIES Toradol and tramadol. MEDICATIONS Azelaic acid. Cymbalta. Dextroamphetamine-amphetamine. Dihydroergotamine. Ibuprofen. Indomethacin. Multivitamins. Zofran. Tylenol. PHYSICAL EXAMINATION VITAL SIGNS: From 10/31/2015: Blood pressure 100/70, height 166 cm, weight 59.8 kg. BMI 21.7. GENERAL: No apparent distress. Alert and oriented x3. HEART: Regular rate and rhythm without murmurs, rubs, or gallops. LUNGS: Clear to auscultation bilaterally with unlabored respirations. DIAGNOSTICS Pelvic ultrasound is performed, which reveals surgical absence of the uterus. Bilateral ovaries appeared normal. These images are reviewed with the patient. Please see ultrasound report for further details. IMPRESSION/REPORT/PLAN 1. Chronic pelvic pain, right side greater than left. At this time does it does not appear to be a pathologic etiology of the ovaries. We did discuss that though she does not have a uterus anymore she is still of reproductive age and may have ovarian follicles develop into cysts and perhaps 1 of the episodes with acute pain may have been a cyst rupturing. At this time no further gynecologic intervention is necessary for this pain nor does Denice request any. 2. Breast pain. Mammogram is ordered to further evaluate. We have discussed that as she had pain after clinical breast exam she is likely to have pain after mammogram as well but she plans to proceed with this to further evaluate this complaint. 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.- LMP Date : Hysterectomy BP Location : Other: VS WNL in past 30 days.- Height : 166 cm(Converted to: 5 ft 5 inch(es), 65 inch(es)) NIDA HASSAN LPN - 11/05/2015 10:04 CDT General Info Information Given By : Patient Languages : Ukrainian Is Patient Female and 13-50 no hysterectomy : No NIDA HASSAN LPN - 11/05/2015 10:04 CDT Subjective Pain Symptoms : Yes NIDA HASSAN LPN - 11/05/2015 10:04 CDT Pain Scale Pain Scale Verbal 0-10 : Open NIDA HASSAN LPN - 11/05/2015 10:04 CDT Pain Pain Assessment Grid Pain 1 Location : Abdomen (Comment: RLQ.- [NIDA HASSAN LPN - 11/05/2015 10:04 CDT] ) NIDA HASSAN LPN - 11/05/2015 10:04 CDT Dependent Habits Exposure to Tobacco Smoke : Care provider denies smoking in home, Other: NEVER Smoking Status : Never smoker Tobacco 2A : No Tobacco Use/Currently Using : No Tobacco Use/Last 30 Days : No Tobacco Use/Last 12 months : No Alcohol Use : Yes NIDA HASSAN LPN - 11/05/2015 10:04 CDT Caffeine Use Grid Caffeine Use : Current Type : Soft drinks Frequency : Weekly Amount : 3 cans per week NIDA HASSAN LPN - 11/05/2015 10:04 CDT Recreational Drug Use Grid Drug Use : None NIDA HASSAN LPN - 11/05/2015 10:04 CDT Allergy Latex Reaction : No Latex Hives/Itch : No Latex Congestion/Eye Irr/Breathing : No Latex Symptom Progression : No Latex Previous Test : No NIDA HASSAN LPN - 11/05/2015 10:04 CDT (As Of: 11/05/2015 10:06:27 CDT) Allergies (Active) Toradol IV/IM Estimated Onset Date: Unspecified ; Reactions: pruritis ; Created By: HAMERSMA, KAYLYN J OPTICAL LAB TECHNICIAN; Reaction Status: Active ; Category: Drug ; Substance: Toradol IV/IM ; Type: Allergy ; Severity: Severe ; Updated By: KAYLYN GOULD CMA; Reviewed Date: 11/05/2015 10:03 CDT traMADol Estimated Onset Date: Unspecified ; Reactions: nausea, dizzy ; Created By: NATALEE CARLSON MD; Reaction Status: Active ; Category: Drug ; Substance: traMADol ; Type: Allergy ; Updated By: NATALEE CARLSON MD; Reviewed Date: 11/05/2015 10:03 CDT Source: [facility] PrestigosCHART Document Id: [id number] CDT!41 documented in this encounter Plan of Treatment Not on filedocumented as of this encounter Procedures Procedure Name Priority Date/Time Associated Diagnosis Comme nts US OB ENDOVAGINAL Routine 11/05/2015 10:11 AM Res ults for this CDT procedure are i n the results section. documented in this encounter Results US OB Endovaginal (11/05/2015 10:11 AM CDT) Anatomical Region Laterality Modality Ultrasound Specimen (Source) Anatomical Collection Method Collection Time Re ceived Time Location / / Volume Laterality 11/05/2015 10:11 AM CDT Addenda Addendum by Provider, Shakila Villagran 11/05/2015 10:11 AM CDT RAD^^^AL US OB Endovaginal 11/05/2015 10:11:03 Impressions 11/07/2015 8:09 AM CDT 1.Surgically absent uterus and cervix. N ormal-appearing bilateral ovaries. Narrative 11/07/2015 8:09 AM CDT EXAM: US OB Endovaginal INDICATION: right sided pelvic pain- s/p hysterectomy COMPARISON: Previous ultrasound on 2014 is prior to hysterectomy TECHNIQUE: Transvaginal ultrasound FINDINGS: Uterus: Surgically absent Cervix: Surgically absent Adnexa: Right Ovary: Measures 2.81 x 1.71 x 2.02 cm. Several small follicles are noted. Left Ovary: Measures 2.32 x 2.25 x 2.06 cm. cul-de-sac: No free fluid noted Procedure Note Staci Gross D.OCinthia / Provider, Chun hernandez M.D. - 08/29/2016 EXAM: US OB Endovaginal INDICATION: right sided pelvic pain- s/p hysterectomy COMPARISON: Previous ultrasound on 2014 is prior to hysterectomy TECHNIQUE: Transvaginal ultrasound FINDINGS: Uterus: Surgically absent Cervix: Surgically absent Adnexa: Right Ovary: Measures 2.81 x 1.71 x 2.02 cm. Several small follicles are noted. Left Ovary: Measures 2.32 x 2.25 x 2.06 cm. cul-de-sac: No free fluid noted IMPRESSION: 1.Surgically absent uterus and cervix. N ormal-appearing bilateral ovaries. Karen Brandon R.V.T. RRainaMCinthiaS. IMG OB US PROCEDURES documented in this encounter Visit Diagnoses Not on filedocumented in this encounter Additional Health Concerns Assessment Noted Time PHQ-9 Depression Total Score: 2 07/10/2015 3:55 PM CDT documented as of this encounter
--- OUTSIDE RECORDS SUMMARY | 2021-12-10 15:37 | XMS_ITS | Encounter Summary ---
:1980 Author Organization [facility] Address [address] [place] [address] Care Team Providers Name Role Phone Unavailable Primary Care Provider Unavailable Encounter Details Date Type Department Care Team Description 02/11/2016 Hospital Encounter HX [facility] Valentine Prado M.D. 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 0 07/16/2014 IBUPROFEN ORAL ibuprofen 0 07/16/2014 MULTIVITAMIN WITH MINERALS Take 1 capsule by 0 ORAL mouth daily. documented as of this encounter Progress Notes David Woodson M.D. - 02/11/2016 2:49 PM CDT [id number] Denice is a <__IM_1: right vs. left? __> -hand dominant 35-year-old, who fell down some stairs yesterday, tripped over a baby gate and injured her left thigh, but then landed onto her right elbow and had pain in her right shoulder. [facility] and is in today now to see me for followup. She is complaining of anterior shoulder pain. Denies any numbness or tingling. Again, she is <__IM_2: right vs. left? __>-hand dominant. X-rays were obtained prior to seeing her and I do not see any evidence of fracture, dislocation or separation. PHYSICAL EXAMINATION On exam, she is tender over her coracoid and along her subscapularis. Resisted internal rotation causes her pain. External rotation is excellent. Empty can testing is excellent, although generates a little bit of pain. She has full internal and external rotation, full abduction and forward flexion. IMPRESSION/REPORT/PLAN I do not see any evidence of any kind of definitive fracture. She seems to have some pain with internal rotation. She may have a strain of her subscapularis. I recommend watching this at this point. Weare just a day out. There is no bruising. If she has any issues over the next couple of weeks then we could consider an MRI. She seemed pleased this approach. She will update us on her progress. Ten minutes, 8 of which was discussion. David Woodson M.D./suly Electronically Signed By: DAVID WOODSON MD On: 02/18/2016 04:26 PM Source: [facility] MHSDOLBEYNONRADSYS Document Id: [id number] documented in this encounter Miscellaneous Notes Miscellaneous - Jeovanny James - 02/11/2016 3:33 PM CDT Ambulatory Patient Summary [place] [facility] [address] [facility] [place], [place] [id number] Visit Information Name: DENICE OWENS [facility] Number: [id number] Current Date: 02/11/2016 15:33:44 Physicians Attending Provider: DAVID WOODSON MD Primary Care Provider: CARLOS VANG MD [...] visit. / (Adderal) please call pt for apple picker. Pt uses [facility]. dihydroergotamine (dihydroergotamine 4 mg/mL nasal spray) 1 [place](s), Nostrils(Both), as needed as needed for Migraine [...] the Following Medications: Medication list as of 02-11-16 15:33 Attention: If you have any medications at home that are not on this list, DO NOT take them until youcontact your provider for clarification. Give a copy of your medication list to your primary care provider. Update your medication list any time medications or doses are changed and carry your medication list at all times in case of emergency. Electronically Signed By: JEOVANNY JAMES PA-C Signed On:11-FEB-2016 15:33:40 Your Allergies & Intolerances Substance Reaction Symptoms [...] Your Upcoming Appointments Date Time Location Provider 02/11/2016 16:00 [facility] Urgent Care Scheduled C 02/13/2016 14:15 [facility]ARTINE[facility], Mary Gonzalez 02/20/2016 10:00 [facility] Carlos Vang MD Attention: Contact your local Clinic if further [...] have one. Go to [email or web address] and click on Create Your Account. Then, follow the directions to complete the online form. Youll be asked for your [facility] number which you can find at the top of this document. Your Goals/Additional instructions: Source: [facility] POWERCHART Document Id: [id number] Miscellaneous - Jeovanny James - 02/11/2016 3:33 PM CDT Ambulatory Discharge Medication List [address] [id number] Visit Information Name: DENICE OWENS [facility] Number: [id number] Current Date: 02/11/2016 15:33:43 Attending Provider: DAVID WOODSON MD Primary Care Provider: CARLOS VANG MD [...] visit. / (Adderal) please call pt for apple picker. Pt uses [facility]. dihydroergotamine (dihydroergotamine 4 mg/mL nasal spray) 1 [place](s), Nostrils(Both), as needed as needed for Migraine [...] the Following Medications: Medication list as of 02-11-16 15:33 Attention: If you have any medications at home that are not on this list, DO NOT take them until youcontact your provider for clarification. Give a copy of your medication list to your primary care provider. Update your medication list any time medications or doses are changed and carry your medication list at all times in case of emergency. Electronically Signed By: JEOVANNY JAMES PA-C Signed On:11-FEB-2016 15:33:40 Additional Information: Source: [facility] POWERCHART Document Id: [id number] Miscellaneous - Arabella Ragland L.P.N. 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 States she fell down stairs last evening. Height : 166 cm(Converted to: 5 ft 5 inch(es), 65 inch(es)) ARABELLA RAGLAND LPN - 02/11/2016 14:59 CDT General Info Information Given By : Patient Preferred Communication Mode : Verbal Languages : Arabic Is Patient Female and 13-50 no hysterectomy : No ARABELLA RAGLAND LPN - 02/11/2016 14:59 CDT Subjective Pain Symptoms : Yes ARABELLA RAGLAND LPN - 02/11/2016 14:59 CDT Pain Scale Pain Scale Verbal 0-10 : Open ARABELLA RAGLAND LPN - 02/11/2016 14:59 CDT Pain Pain Assessment Grid Pain 1 Location : Shoulder Laterality : Right Intensity : 7 ARABELLA RAGLAND LPN - 02/11/2016 14:59 CDT Dependent Habits Exposure to Tobacco Smoke : Care provider denies smoking in home, Other: NEVER Smoking Status : Never smoker Tobacco 2A : No Tobacco Use/Currently Using : No Tobacco Use/Last 30 Days : No Tobacco Use/Last 12 months : No ARABELLA RAGLAND LPN - 02/11/2016 14:59 CDT Caffeine Use Grid Caffeine Use : Current Type : Soft drinks Frequency : Weekly Amount : 3 cans per week ARABELLA RAGLAND LPN - 02/11/2016 14:59 CDT Recreational Drug Use Grid Drug Use : None ARABELLA RAGLAND LPN - 02/11/2016 14:59 CDT Source: [facility] Document Id: [id number] CDT!35 documented in this encounter Plan of Treatment Not on filedocumented as of this encounter Procedures Procedure Name Priority Date/Time Associated Diagnosis Comme nts DX SHOULDER RIGHT Routine 02/11/2016 3:10 PM Resu lts for this 2+ VIEWS CDT procedure are i n the results section. documented in this encounter Results DX Shoulder Right 2+ Views (02/11/2016 3:10 PM CDT) Anatomical Region Laterality Modality Upper Extremity, Shoulder Right Radiographic I maging Specimen (Source) Anatomical Collection Method Collection Time Re ceived Time Location / / Volume Laterality 02/11/2016 3:10 PM CDT Addenda Addendum by Provider, Shakila Villagran 02/11/2016 3:10 PM CDT RAD^^^AL XR Shoulder Right 2 or more views 02/11/2016 15:10:34 Impressions 02/11/2016 3:24 PM CDT Normal right shoulder Narrative 02/11/2016 3:24 PM CDT EXAM: XR Shoulder Right 2 or more views INDICATION: right shoulder COMPARISON: None. FINDINGS: No abnormality is identified Procedure Note Alvaro Waite D.O. / Provider, Km beltran M.D. - 08/29/2016 EXAM: XR Shoulder Right 2 or more views INDICATION: right shoulder COMPARISON: None. FINDINGS: No abnormality is identified IMPRESSION: Normal right shoulder Elli Berman R.T.(R)(CT), R.T.(R) IMG DIAGNOSTIC GYPSY GING PROCEDURES documented in this encounter Visit Diagnoses Not on filedocumented in this encounter
--- OUTSIDE RECORDS SUMMARY | 2021-12-10 15:37 | XMS_ITS | Encounter Summary ---
:1980 Author Organization [facility] Address [address] [place] [address] Care Team Providers Name Role Phone Unavailable Primary Care Provider Unavailable Encounter Details Date Type Department Care Team Description 03/04/2015 Hospital Encounter HX [facility] Carlos Nolan M.D. 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 0 07/16/2014 IBUPROFEN ORAL ibuprofen 0 07/16/2014 MULTIVITAMIN WITH MINERALS Take 1 capsule by 0 ORAL mouth daily. documented as of this encounter Procedure Notes Wesley Mustafa, C.M.A. - 03/04/2015 2:03 PM CST PPD Reading PPD Reading Entered On: 03/04/2015 14:04 WATER TREATMENT TECHNICIAN Performed On: 03/04/2015 14:03 WATER TREATMENT TECHNICIAN by WESLEY MUSTAFA CMA PPD Reading MM of Induration : 0 mm PPD Interpretation : Negative PPD Placed On : Right inner forearm PPD Date/Time Administered : 03/01/2015 14:53 WATER TREATMENT TECHNICIAN WESLEY MUSTAFA CMA - 03/04/2015 14:03 WATER TREATMENT TECHNICIAN Source: [facility] POWERCHART Document Id: [id number] WATER TREATMENT TECHNICIAN!6 R TREATMENT TECHNICIAN documented in this encounter Miscellaneous Notes Telephone Encounter - Conversion, Historical Provider Ser - 03/28/2015 2:10 PM CST Vishwak/headaches Document Contains Addenda Addendum by NORA GREGG on 29 March 2015 08:59:49 WATER TREATMENT TECHNICIAN This is done. Addendum by YANA LOPEZ RN on 29 March 2015 08:47:15 WATER TREATMENT TECHNICIAN From: YANA LOPEZ RN ([facility] Team 1 Nurse) To: [facility] Aircraft Cabin Cleaner; Sent: 03/29/2015 08:47:15 WATER TREATMENT TECHNICIAN Subject: FW: Vishwak/headaches Addendum by YANA LOPEZ RN on 29 March 2015 08:47:07 WATER TREATMENT TECHNICIAN Please schedule patient to Dr. Nolan on 04/04 at 8 am nurse-headaches Patient aware. Thanks Addendum by RUBIN PALAFOX on 29 March 2015 08:18:13 WATER TREATMENT TECHNICIAN From: RUBIN PALAFOX ([facility] Aircraft Cabin Cleaner) To: [facility] Team 1 Nurse; Sent: 03/29/2015 08:18:13 WATER TREATMENT TECHNICIAN Subject: FW: Vishwak/headaches Spouse Phan called to cancel appt w/ Obermeyer for today. Pt would like to see Dr Nolan pcp, nazia. Spouse thought discussion may have lead to a 04/04/15 appt w/ pcp. Pls advise. Bobby phone is [phone]. Addendum by HOMERO SORENSEN LPN on 28 March 2015 16:00:21 WATER TREATMENT TECHNICIAN called back. She has been taking topamax and still not improving at all off and on headachex3 weeks. Really would like to be seen again, had discussed with Ovidio last week when brought baby in. Was able work her into [email or web address] schedule tomorrow at 1000 03/29/2015. Addendum by YANA LOPEZ RN on 28 March 2015 14:46:43 WATER TREATMENT TECHNICIAN Left messaege for Phan to return call. From: YOUNG JONAS ([facility] Aircraft Cabin Cleaner) To: [facility] Team 1 Nurse; Sent: 03/28/2015 14:10:06 WATER TREATMENT TECHNICIAN Subject: Vishwak/headaches Caller is: ( ) Patient ( ) Mother ( ) Father ( ) Spouse ( ) Daughter ( ) Son ( ) Pharmacy ( ) Other: Physician: Ovidio Patient Reason for Call: Pts Phan calling regarding his Denice she has been having headaches and would like a nurse to call back [phone]. Message: Advice/Action: Source used: ( ) Verbalizes understanding of instructions ( ) Instructed to call back if symptoms worsen or do not resolve ( ) Refused to see provider ( ) Appointment Scheduled ( ) OK to leave message on voice mail ( ) Patient told to expect return call: ( ) today ( ) tomorrow ( ) next work day ( ) Patient's email ( ) Patient told physician out of office, will call upon return call on ( ) ( ) Patient told physician out of office, routed to other physician ( ) Other ( ) Call back telephone number ( ) Call back cell phone number ( ) Source: [facility] POWERCHART Document Id: [id number] documented in this encounter Plan of Treatment Not on filedocumented as of this encounter Procedures Procedure Name Priority Date/Time Associated Diagnosis Comme nts HX TB SKIN TEST-LAB Routine 03/04/2015 2:03 PM Re sults for this WATER TREATMENT TECHNICIAN procedure are i n the results section. documented in this encounter Results HX TB SKIN TEST-LAB (03/04/2015 2:03 PM WATER TREATMENT TECHNICIAN) P athologist Signature TB Skin Test 0 MM POWERCHART TB Skin Test Negative POWERCHART Specimen (Source) Anatomical Collection Method Collection Time Re ceived Time Location / / Volume Laterality 03/04/2015 2:03 PM WATER TREATMENT TECHNICIAN Carlos Nolan M.D. LAB HISTORICAL ORDERS Performing Organization Address City/State/ZIP Code Phon e Number POWERCHART documented in this encounter Visit Diagnoses Not on filedocumented in this encounter Additional Health Concerns Assessment Noted Time PHQ-9 Depression Total Score: 3 11/29/2014 4:18 PM CDT documented as of this encounter
--- OUTSIDE RECORDS SUMMARY | 2021-12-10 15:37 | XMS_ITS | Encounter Summary ---
:1980 Author Organization [facility] Address [address] [place] [address] Care Team Providers Name Role Phone Unavailable Primary Care Provider Unavailable Encounter Details Date Type Department Care Team Description 07/15/2015 Hospital Encounter [facility]X [facility] Homa Wong APRN, C.N.P. 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 0 07/16/2014 IBUPROFEN ORAL ibuprofen 0 07/16/2014 MULTIVITAMIN WITH MINERALS Take 1 capsule by 0 ORAL mouth daily. documented as of this encounter Progress Notes Sarah Wong APRN, R.N. - 07/15/2015 2:43 PM CDT [id number] CHIEF COMPLAINT/REASON FOR VISIT Facial flushing HISTORY OF PRESENT ILLNESS Denice Owens is a 35-year-old female who presents today for facial flushing secondary to performance anxiety. Patient previously sought dermatology and was given a beta lidia to take prior tostressful situations that may provoke facial flushing secondary to performance anxiety. She has a job interview on and is requesting a refill of this medication. Patient has history of anxietyand ADHD. Patient is without other complaints or concerns today as she saw Dr. Vang, her primary care provider, this past Wednesday and had all other concerns addressed. MEDICATIONS Reviewed, as listed in the electronic medical record. ALLERGIES Reviewed, as listed in the electronic medical record. PAST MEDICAL/SURGICAL HISTORY PAST MEDICAL HISTORY: Reviewed, as listed in the electronic medical record. SURGICAL HISTORY: Reviewed, as listed in the electronic medical record. SYSTEMS REVIEW SKIN: See HPI PSYCHOLOGICAL: See HPI PHYSICAL EXAMINATION VITAL SIGNS: Blood pressure 136/95, temperature 36.8, pulse 96, weight 58kg. GENERAL: No acute distress, alert and oriented x3, dressed appropriately, well groomed, speech is clear and appropriate. SKIN: Warm, dry, intact, without rash, lesions, or abrasions. PSYCHOLOGICAL: Appropriate affect, patient is alert, cooperative, and makes good eye contact. IMPRESSION/REPORT/PLAN Performance anxiety PLAN: Patient discussed with Dr. Vang, her primary care provider, prescribed propranolol 20 mg twice daily to be used as needed for performance anxiety. Patient will follow up as needed with . Patient receptive and happy with this plan. Sarah Wong N.Michael/grady Electronically Signed By: SARAH WONG APRN, CNP On: 07/17/2015 08:22 AM Modified by and Electronically Signed by: SARAH WONG APRN, CNP On: 07/17/2015 08:22 AM Source: [facility] MHSDOLBEYNAMOSSYJenna Document Id: [id number] documented in this encounter Miscellaneous Notes Miscellaneous - Sarah Wong APRN, R.N. - 07/15/2015 3:43 PM CDT Ambulatory Discharge Medication List [address] [place] [id number] Visit Information Name: DENICE OWENS [facility] Number: [id number] Visit Date: 07/15/2015 15:43:49 Attending Provider: SARAH WONG APRN TROUBLE DISPATCHER Primary Care Provider: YOBANY VANG MD DENICE [...] visit. / (Adderal) please call pt for peanut picker. Pt uses [facility]. ibuprofen (ibuprofen) indomethacin (indomethacin 25 mg oral [...] day take as needed for performance anxiety New Routed to [address] [place] [phone] Stop Taking the Following Medications: isometheptene/dichloralphenazon/acetaminophen (Midrin oral capsule) oxyCODONE-acetaminophen (Percocet 5/325 oral tablet) Medication list as of 07-15-15 15:43 Attention: If you have any medications at home that are not on this list, DO NOT take them until youcontact your provider for clarification. Give a copy of your medication list to your primary care provider. Update your medication list any time medications or doses are changed and carry your medication list at all times in case of emergency. Electronically Signed By: SARAH WONG APRN, CNP Signed On:15-JUL-2015 15:43:44 Additional Information: Source: [facility] POWERCHART Document Id: [id number] Miscellaneous - Sarah Wong APRN, R.N. - 07/15/2015 3:43 PM CDT Ambulatory Patient Summary [address] [id number] Visit Information Name: DENICE OWENS [facility] Number: [id number] Current Date: 07/15/2015 15:43:50 Physicians Attending Provider: SARAH WONG APRN, CNP Primary Care Provider: YOBANY VANG MD DENICE [...] visit. / (Adderal) please call pt for peanut picker. Pt uses [facility]. ibuprofen (ibuprofen) indomethacin (indomethacin 25 mg oral [...] day take as needed for performance anxiety New Routed to [address] [phone] Stop Taking the Following Medications: isometheptene/dichloralphenazon/acetaminophen (Midrin oral capsule) oxyCODONE-acetaminophen (Percocet 5/325 oral tablet) Medication list as of 07-15-15 15:43 Attention: If you have any medications at home that are not on this list, DO NOT take them until youcontact your provider for clarification. Give a copy of your medication list to your primary care provider. Update your medication list any time medications or doses are changed and carry your medication list at all times in case of emergency. Electronically Signed By: SARAH WONG APRN, CNP Signed On:15-JUL-2015 15:43:44 Your Allergies & Intolerances Substance Reaction Symptoms [...] if you dont have one. Go to [email or web address] and click on Create Your Account. Then, follow the directions to complete the online form. Youll be asked for your [facility] number which you can find at the top of this document. Your Goals/Additional instructions: Source: [facility] Document Id: [id number] Andree - Ramiro Mendiola L.P.N. - 07/15/2015 2:53 PM CDT Ambulatory Vitals Height Weight Ambulatory Vitals Height Weight Entered On: 07/15/2015 14:53 CDT Performed On: 07/15/2015 14:53 CDT by RAMIRO MENDIOLA LPN Vitals/Ht/Wt Systolic Blood Pressure : 136 mmHg Diastolic Blood Pressure : 95 mmHg (>HHI) NIBP Mean : 109 mmHg BP Location : Right upper extremity Blood Pressure Cuff Size : Regular Height : 166 cm(Converted to: 5 ft 5 inch(es), 65 inch(es)) RAMIRO MENDIOLA LPN - 07/15/2015 14:53 CDT Source: [facility] Document Id: [id number] CDT!8 Andree - Ramiro Mendiola L.P.[place] - 07/15/2015 2:50 PM CDT Adult Crotch Breaker Intake/History Adult Crotch Breaker Intake/History Entered On: 07/15/2015 14:53 CDT Performed On: 07/15/2015 14:50 CDT by RAMIRO MENDIOLA LPN Intake Chief Complaint : Concern/skin Ambulatory Intake Additional Information : skin gets blotchy Temperature Core : 36.8 DegC(Converted to: 98.2 DegF) Peripheral Pulse Rate : 96 /min Systolic Blood Pressure : 141 mmHg (HI) Diastolic Blood Pressure : 97 mmHg (>HHI) NIBP Mean : 112 mmHg BP Location : Right upper extremity Blood Pressure Cuff Size : Regular SpO2 : 99 % Oxygen Therapy : Room air Height : 166 cm(Converted to: 5 ft 5 inch(es), 65 inch(es)) Actual Weight : 58 kg(Converted to: 127 lb 14 oz) Weight Source : Standing scale Dosing Weight Clinic : 58 kg Clinic BSA : 1.64 Body Mass Index : 21.05 kg/m2 RAMIRO MENDIOLA LPN - 07/15/2015 14:50 CDT General Info Information Given By : Patient Languages : Venezuelan Is Patient Female and 13-50 no hysterectomy : No RAMIRO MENDIOLA LPN - 07/15/2015 14:50 CDT Subjective Pain Symptoms : No RAMIRO MENDIOLA LPN 07/15/2015 14:50 CDT Dependent Habits Exposure to Tobacco Smoke : Care provider denies smoking in home, Other: NEVER Smoking Status : Never smoker Tobacco 2A : No Tobacco Use/Currently Using : No Tobacco Use/Last 30 Days : No Tobacco Use/Last 12 months : No Alcohol Use : Yes RAMIRO MENDIOLA LPN - 07/15/2015 14:50 CDT Caffeine Use Grid Caffeine Use : Current Type : Soft drinks Frequency : Weekly Amount : 3 cans per week RAMIRO MENDIOLA LPN - 07/15/2015 14:50 CDT Recreational Drug Use Grid Drug Use : None RAMIRO MENDIOLA LPN - 07/15/2015 14:50 CDT Source: [facility] Document Id: [id number] CDT!42 documented in this encounter Plan of Treatment Not on filedocumented as of this encounter Visit Diagnoses Not on filedocumented in this encounter Additional Health Concerns Assessment Noted Time PHQ-9 Depression Total Score: 2 07/10/2015 3:55 PM CDT documented as of this encounter
--- OUTSIDE RECORDS SUMMARY | 2021-12-10 15:37 | XMS_ITS | Encounter Summary ---
:1980 Author Organization [facility] Address [address] [place] [address] Care Team Providers Name Role Phone Unavailable Primary Care Provider Unavailable Encounter Details Date Type Department Care Team Description 01/25/2015 Hospital Encounter HX [facility] Carlos Vang M.D. 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 0 07/16/2014 IBUPROFEN ORAL ibuprofen 0 07/16/2014 MULTIVITAMIN WITH MINERALS Take 1 capsule by 0 ORAL mouth daily. documented as of this encounter Progress Notes Carlos Vang M.D. - 01/25/2015 10:19 AM CDT [id number] CHIEF COMPLAINT/REASON FOR VISIT Headache, cervical. HISTORY OF PRESENT ILLNESS Jeannine comes in today, along with her . She has now been following Dr. Foster regarding her ongoing neck pain as well as headache. She has been complaining about this pain for quite some time now, localizing it in the neck area, especially at the nape of the neck, and sometimes radiating to almost her vertex as well as the temporal area. She complains of this pain sometimes coming up suddenly, lasting from a few hours to some sometimes a few days. She complains of more of a stabbing pain with this. We had tried amitriptyline in the past, also tried Flexeril, from which she did get some side effects of palpitations. Recently with Dr. Foster she had been getting some sessions with acupuncture. This did in fact help her significantly, but she informs me that the pain is now back again. She has had significant amount of pain lately, sometimes rating it around 8 to 9 out of 10, localizing on the above-mentioned area. She declines any nausea, vomiting, chest pain, or shortness of breath. Declines any gait problems associated with this. PAST MEDICAL/SURGICAL HISTORY Reviewed on 01/25/2015. SOCIAL HISTORY Reviewed on 01/25/2015. FAMILY HISTORY Reviewed on 01/25/2015. MEDICATIONS Reviewed on 01/25/2015. ALLERGIES Reviewed on 01/25/2015. SYSTEMS REVIEW As above. All other systems reviewed and negative. PHYSICAL EXAMINATION VITAL SIGNS: Reviewed. GENERAL: Alert, awake, and oriented x3. Not in distress. MUSCULOSKELETAL: Cervical spine area was examined. No significant deformity noted. No tenderness along the entire spinous processes were noted. However, she did have pain localized at the back of the neck, more on the right side. This has always been limited on the right side. Some stiffness in the neck muscle area was also noted today. IMPRESSION/REPORT/PLAN Headache. Various etiologies, including possibility of occipital neuralgia, was discussed with Jeannine today. Management options were discussed. I have currently recommended that we have this further evaluated and confirmed by a neurological evaluation. A consultation to our neurologist has been placed. Treatment options including antidepressants or antiseizure medications if diagnosed was also discussed. We also did discuss the possibility of having this injected in further diagnosis. Jeannine does inform me that in the past, in the [facility], she had some injections done in the area but does not recall if it helped her significantly. Until she sees Dr. Khan, I have provided her with a script of [place], which she has used in the past for these kind of headaches. She agrees with the plan. I will have her come back to us as needed now. Vinod Orr/suly Electronically Signed By: CARLOS VANG MD On: 01/28/2015 02:53 PM Source: [facility] MHSDOLBEYNONRADSYS Document Id: [id number] documented in this encounter Miscellaneous Notes Miscellaneous - Carlos Vang M.D. - 01/25/2015 11:17 AM CDT Ambulatory Patient Summary [address] [id number] Visit Information Name: JEANNINE OWENS [facility] Number: [id number] Current Date: 01/25/2015 11:17:59 Physicians Attending Provider: CARLOS VANG MD Primary [...] visit. / (Adderal) please call pt for nut picker. Pt uses [facility]. HYDROcodone-acetaminophen ([place] 5 mg-325 mg oral tablet) 1 to 2 tablets, Oral, every 6 hours as needed for Pain x 7 day(s) No more than 4,000mg acetaminophen/24hrs New Routed to [facility] ibuprofen (ibuprofen) multivitamin with minerals (multivitamin with minerals Multiple Vitamins with Zinc oral capsule) 1 cap, Oral, once a day with magnesium Stop Taking the Following Medications: Medication list as of 01-25-15 11:17 Attention: If you have any medications at [...] Electronically Signed By: CARLOS VANG MD Signed On:25-JAN-2015 11:17:52 Your Allergies & Intolerances Substance Reaction Symptoms [...] if you dont have one. Go to [email or web address] and click on Create Your Account. Then, follow the directions to complete the online form. Youll be asked for your [facility] number which you can find at the top of this document. Your Goals/Additional instructions: Source: [facility] POWERCHART Document Id: [id number] Miscellaneous - Carlos Vang M.D. - 01/25/2015 11:17 AM CDT Ambulatory Discharge Medication List [address] [place], [place] [id number] Visit Information Name: ANDREW OWENSHUGH NEW [facility] Number: [id number] Visit Date: 01/25/2015 11:17:57 Attending Provider: CARLOS VANG MD Primary Care Provider: CARLOS VANG MD ANDREW OWENSHUGH NEW has been given the following list [...] visit. / (Adderal) please call pt for nut picker. Pt uses [facility]. HYDROcodone-acetaminophen ([place] 5 mg-325 mg oral tablet) 1 to 2 tablets, Oral, every 6 hours as needed for Pain x 7 day(s) No more than 4,000mg acetaminophen/24hrs New Routed to [facility] ib[facility]rofen (ibuprofen) multivitamin with minerals (multivitamin with minerals Multiple Vitamins with Zinc oral capsule) 1 cap, Oral, once a day with magnesium Stop Taking the Following Medications: Medication list as of 01-25-15 11:17 Attention: If you have any medications at [...] Electronically Signed By: CARLOS VANG MD Signed On:25-JAN-2015 11:17:52 Additional Information: Source: [facility] POWERCHART Document Id: [id number] Miscellaneous - Leti Martin L.PCinthiaN. - 01/25/2015 10:40 AM CDT Adult Intervention Analyst Intake/History Adult Intervention Analyst Intake/History Entered On: 01/25/2015 10:43 CDT Performed On: 01/25/2015 10:40 CDT by LETI MARTIN LPN Intake Chief Complaint : CHRISTINE chronic/ flu shots Temperature Core : 37 DegC(Converted to: 98.6 DegF) Peripheral Pulse Rate : 82 /min Heart Rhythm : Regular Systolic Blood Pressure : 106 mmHg Diastolic Blood Pressure : 78 mmHg NIBP Mean : 87 mmHg BP Location : Right upper extremity Blood Pressure Cuff Size : Regular Height : 166 cm(Converted to: 5 ft 5 inch(es), 65 inch(es)) Actual Weight : 60.1 kg(Converted to: 132 lb 8 oz) Weight Source : Standing scale Dosing Weight Clinic : 60.1 kg Clinic BSA : 1.66 Body Mass Index : 21.81 kg/m2 LETI MARTIN LPN - 01/25/2015 10:40 CDT General Info Information Given By : Patient Languages : Mongolian Is Patient Female and 13-50 no hysterectomy : No LETI MARTIN LPN - 01/25/2015 10:40 CDT Subjective Pain Symptoms : No LETI MARTIN LPN - 01/25/2015 10:40 CDT Dependent Habits Tobacco Use/Currently Using : No Exposure to Tobacco Smoke : Care provider denies smoking in home Smoking Status : Former smoker LETI MARTIN LPN - 01/25/2015 10:40 CDT Caffeine Use Grid Caffeine Use : Current Type : Soft drinks Frequency : Weekly Amount : 3 cans per week LETI MARTIN LPN - 01/25/2015 10:40 CDT Recreational Drug Use Grid Drug Use : None LETI MARTIN LPN - 01/25/2015 10:40 CDT Source: [facility] [employer] Document Id: [id number] CDT!36 documented in this encounter Plan of Treatment Not on filedocumented as of this encounter Visit Diagnoses Not on filedocumented in this encounter Additional Health Concerns Assessment Noted Time PHQ-9 Depression Total Score: 3 11/29/2014 4:18 PM CDT documented as of this encounter
--- OUTSIDE RECORDS SUMMARY | 2021-12-10 15:37 | XMS_ITS | Encounter Summary ---
:1980 Author Organization [facility] Address [address] [place] [address] Care Team Providers Name Role Phone Unavailable Primary Care Provider Unavailable Encounter Details Date Type Department Care Team Description 09/03/2015 Hospital Encounter HX [facility] Carlos Vang M.D. [address] [place], [place] [address] (Wo rk) Social History Tobacco Use Types Packs/Day Years Used Date Smoking Tobacco: Never Assessed Sex Assigned at Date Recorded Female 04/15/2017 7:38 PM [employer] documented as of this encounter Last Filed Vital Signs Vital Sign Reading Time Taken Comments Blood Pressure 122/72 09/03/2015 10:59 AM CDT Pulse 80 09/03/2015 10:59 AM CDT Temperature - - Respiratory Rate - - Oxygen Saturation - - Inhaled Oxygen Concentration - - Weight 58.1 kg (128 lb 1.4 oz) 09/03/2015 10:59 AM CDT Height 166 cm (5' 5.35) 09/03/2015 10:59 AM CDT Body Mass Index 21.08 09/03/2015 10:59 AM CDT documented in this encounter Medications at Time of Discharge Medication Sig Dispensed Refills Start Date End Date ACETAMINOPHEN ORAL Take by mouth. 0 07/16/2014 IBUPROFEN ORAL ibuprofen 0 07/16/2014 MULTIVITAMIN WITH MINERALS Take 1 capsule by 0 ORAL mouth daily. documented as of this encounter Progress Notes Carlos Vang M.D. - 09/03/2015 10:51 AM CDT [id number] CHIEF COMPLAINT/REASON FOR VISIT Headache, occipital. HISTORY OF PRESENT ILLNESS Denice comes in today to have herself evaluated. She currently comes in requesting a letter to present to her office informing that she is not able to do pushups secondary to her ongoing issues with right-sided occipital pain. She has had a history of ongoing headache, especially in the occipital area and has undergone occipital nerve block per Dr. Khan fairly recently. Denice says she isable to do her usual activities including running without any significant issues. However while she does the pushups she can notice a significant amount of stiffness in her right side of the neck, napeof the neck. This leads her to have worsening headaches. IMPRESSION/REPORT/PLAN A note was provided to Denice. Please have a look at the scanned documents for details. I will have her come back to us as needed now. Vinod Orr/suly Electronically Signed By: CARLOS VANG MD On: 09/04/2015 11:57 AM Source: [facility] MHSDOLBEYNONRADSYS Document Id: [id number] documented in this encounter Miscellaneous Notes Miscellaneous - Carlos Vang M.D. - 01/17/2016 1:17 PM CDT Work Excuse January 17, 2016 DENICE OWENS [id number] [place] [id number] Dear DENICE OWENS, You were examined in [...] ) Return to Work date: _ Notes: Return to work on 01/20/2016 Sincerely, CARLOS VANG [address] [place] [address] Electronic Signature Electronically Signed By: CARLOS VANG MD On: January 17, 2016 This document has images extracted. 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 Pt will be notified when ready to be picked up Addendum by CARLOS VANG MD on January 17, 2016 13:17:57 CDT From: CARLOS VANG MD To: [place] [facility] 1 Nurse; Sent: 01/17/2016 13:17:57 CDT Subject: RE: Hosea/ Work Note Ready. Thanks Addendum by NEGIN CARRILLO on January 17, 2016 13:11:36 CDT From: NEGIN CARRILLO ([place] [facility] Team 1 Nurse) To: CARLOS VANG MD; Sent: 01/17/2016 13:11:36 CDT Subject: RE: Hosea/ Work Note Please note message below and advise, pt was seen yesterday 01/15 From: NORA GREGG ([place] [facility] Therapist Physical) To: [place] [facility] Team 1 Nurse; Sent: 01/17/2016 12:20:46 CDT Subject: Hosea/ Work Note Caller/ Relationship:Self Facility: Call Back #[phone] Reason For Call: Denice would like her work note extended through the weekend with a return date of 01/19. Please advise, thank you. [facility] Document Id: [id number] Miscellaneous - Conversion, Historical Provider Ser - 11/27/2015 10:56 AM CDT Hosea/adderall Document Contains Addenda Addendum by CHERYL MATTHEWS on November 27, 2015 14:34:58 CDT Rx brought to registration for patient ed pick-up. Addendum by FIDENCIO NELSON on November 27, 2015 11:45:32 CDT From: FIDENCIO NELSON Sent: 11/27/2015 11:45:32 CDT Subject: RE:adderall Approved Order:dextroamphetamine-amphetamine (dextroamphetamine-amphetamine 5 mg oral tablet) See Instructions 1 tab(s) PO DAILY AM AND NOON. Ok to fill 30 days after the last visit. Qty: 60 tab(s) Refills: 0 Substitutions Allowed Print - [id number] (Adderal) please call pt for pepper picker. Pt uses [facility]. Signed by FIDENCIO NELSON 11/27/2015 11:45:30 Addendum by PRIYA FARR LPN on November 27, 2015 11:43:42 CDT From: PRIYA FARR LPN ([place] [facility] Team 1 Nurse) To: FIDENCIO NELSON; Sent: 11/27/2015 11:43:42 CDT Subject: adderall Addendum by PRIYA FARR LPN on November 27, 2015 11:42:53 CDT On hold pending signature Order:dextroamphetamine-amphetamine (dextroamphetamine-amphetamine 5 mg oral tablet) See Instructions 1 tab(s) PO DAILY AM AND NOON. Ok to fill 30 days after the last visit. Qty: 60 tab(s) Refills: 0 Substitutions Allowed Print - [id number] (Adderal) please call pt for pepper picker. Pt uses [facility]. Addendum by PRIYA FARR LPN on November 27, 2015 11:16:17 CDT Left generic message for pt to call back. From: YOUNG JONAS ([place] [facility] Therapist Physical) To: [place] [facility] Team 1 Nurse; Sent: 11/27/2015 10:56:33 CDT Subject: Hosea/adderall Caller Name/Relationship: Pt Facility: Call Back # [phone] Reason for Call: Pt calling regarding her adderall Source: [facility] [employer] Document Id: [id number] Miscellaneous - Conversion, Historical Provider Ser - 10/07/2015 11:51 AM CDT [facility] Document Contains Addenda Addendum by NEGIN CARRILLO on October 08, 2015 08:08:43 CDT Pt notified of script ready to be picked up at 4th floor front end ui developer. Addendum by CARLOS VANG MD on October 07, 2015 16:30:59 CDT From: CARLOS VANG MD Sent: 10/07/2015 16:30:59 CDT Subject: RE:adderrall Approved Order:dextroamphetamine-amphetamine (dextroamphetamine-amphetamine 5 mg oral tablet) See Instructions 1 tab(s) PO DAILY AM AND NOON. Ok to fill 30 days after the last visit. Qty: 60 tab(s) Refills: 0 Substitutions Allowed Print - [id number] (Adderal) please call pt for pepper picker. Pt uses [facility]. Signed by CARLOS VANG MD 10/07/2015 16:30:56 Addendum by PRIYA FARR LPN on October 07, 2015 12:46:47 CDT From: PRIYA FARR LPN ([place] [facility] Team 1 Nurse) To: CARLOS VANG MD; Sent: 10/07/2015 12:46:47 CDT Subject: adderrall Addendum by PRIYA FARR LPN on October 07, 2015 12:46:36 CDT On hold pending signature Order:dextroamphetamine-amphetamine (dextroamphetamine-amphetamine 5 mg oral tablet) See Instructions 1 tab(s) PO DAILY AM AND NOON. Ok to fill 30 days after the last visit. Qty: 60 tab(s) Refills: 0 Substitutions Allowed Print - [id number] (Adderal) please call pt for pepper picker. Pt uses [facility]. From: DINO MENDIOLA ([place] [facility] Therapist Physical) To: [place] [facility] Team 1 Nurse; Sent: 10/07/2015 11:51:50 CDT Subject: MEDS-ELVISKmRAJESH Patient calling in. States she needs a refill on her adderall. Patient uses [facility] pharmacy. She can be reached at [phone]. Source: [facility] [employer] Document Id: [id number] Miscellaneous - Carlos Vang M.D. - 09/03/2015 11:31 AM CDT Ambulatory Patient Summary [address] [id number] Visit Information Name: DENICE OWENS [facility] Number: [id number] Current Date: 09/03/2015 11:31:07 Physicians Attending Provider: CARLOS VANG MD Primary [...] for Patient Medication Changes/Routing acetaminophen (Tylenol) Oral *azelaic acid topical (azelaic acid 20% topical cream) 1 oliver, Topical, two times a day dextroamphetamine-amphetamine (dextroamphetamine-amphetamine 5 mg oral tablet) See Instructions 1 tab(s) PO DAILY AM AND NOON. Ok to fill 30 days after the last visit. / (Adderal) please call pt for pepper picker. Pt uses [facility]. DULoxetine (Cymbalta 20 mg oral delayed release capsule) 1 cap, Oral, once a day If tolerated increase to 40mg after a week HYDROcodone-acetaminophen (HYDROcodone-acetaminophen 5 mg-325 mg oral tablet) 1 Tablet(s), Oral, every 8 hours as needed for Pain No more than 4,000mg acetaminophen/24hrs ibuprofen (ibuprofen) *indomethacin (indomethacin 25 mg oral capsule) 2 cap, Oral, three times a day as needed for Pain Take with food multivitamin with minerals (multivitamin with minerals Multiple Vitamins with Zinc oral capsule) 1 cap, Oral, once a day with magnesium ondansetron (ondansetron 4 mg oral tablet, disintegrating) 1 Tablet(s), Oral, four times a day as needed for Nausea *propranolol (propranolol 20 mg oral tablet) 1 Tablet(s), Oral, two times a day take as needed for performance anxiety * You have let us know that you are not taking this medication as listed. Please talk with your primary care provider or the health care provider who prescribed the medication as soon as possible. Stop Taking the Following Medications: Medication list as of 09-03-15 11:31 Attention: If you have any medications at [...] Electronically Signed By: CARLOS VANG MD Signed On:03-SEP-2015 11:31:04 Your Allergies & Intolerances Substance Reaction Symptoms [...] Your Upcoming Appointments Date Time Location Provider 10/08/2015 08:15 [facility] Erin MARTINEZ, Tamara Attention: [...] if you dont have one. Go to [email or web address] and click on Create Your Account. Then, follow the directions to complete the online form. Youll be asked for your [facility] number which you can find at the top of this document. Your Goals/Additional instructions: Source: [facility] POWERCHART Document Id: [id number] Miscellaneous - Carlos Vang M.D. - 09/03/2015 11:31 AM CDT Ambulatory Discharge Medication List [address] [id number] Visit Information Name: DENICE OWENS [facility] Number: [id number] Visit Date: 09/03/2015 11:31:06 Attending Provider: CARLOS VANG MD Primary Care [...] for Patient Medication Changes/Routing acetaminophen (Tylenol) Oral *azelaic acid topical (azelaic acid 20% topical cream) 1 oliver, Topical, two times a day dextroamphetamine-amphetamine (dextroamphetamine-amphetamine 5 mg oral tablet) See Instructions 1 tab(s) PO DAILY AM AND NOON. Ok to fill 30 days after the last visit. / (Adderal) please call pt for pepper picker. Pt uses [facility]. DULoxetine (Cymbalta 20 mg oral delayed release capsule) 1 cap, Oral, once a day If tolerated increase to 40mg after a week HYDROcodone-acetaminophen (HYDROcodone-acetaminophen 5 mg-325 mg oral tablet) 1 Tablet(s), Oral, every 8 hours as needed for Pain No more than 4,000mg acetaminophen/24hrs ibuprofen (ibuprofen) *indomethacin (indomethacin 25 mg oral capsule) 2 cap, Oral, three times a day as needed for Pain Take with food multivitamin with minerals (multivitamin with minerals Multiple Vitamins with Zinc oral capsule) 1 cap, Oral, once a day with magnesium ondansetron (ondansetron 4 mg oral tablet, disintegrating) 1 Tablet(s), Oral, four times a day as needed for Nausea *propranolol (propranolol 20 mg oral tablet) 1 Tablet(s), Oral, two times a day take as needed for performance anxiety * You have let us know that you are not taking this medication as listed. Please talk with your primary care provider or the health care provider who prescribed the medication as soon as possible. Stop Taking the Following Medications: Medication list as of 09-03-15 11:31 Attention: If you have any medications at [...] Electronically Signed By: CARLOS VANG MD Signed On:03-SEP-2015 11:31:04 Additional Information: Source: [facility]OWERCHART Document Id: [id number] Jennifercellmadeline - Carlos Vang M.D. 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 Sincerely, CARLOS VANG [address] [place] [address] Electronic Signature Electronically Signed By: CARLOS VANG MD On: September 03, 2015 This document has images extracted. Source: [facility] POWERCHART Document Id: [id number] Miscellaneous - Alejandra Grossman LCinthiaPCinthiaN. - 09/03/2015 10:59 AM CDT Adult Therapeutic Strategy Lead Intake/History Adult Therapeutic Strategy Lead Intake/History Entered On: 09/03/2015 11:02 CDT Performed On: 09/03/2015 10:59 CDT by ALEJANDRA GROSSMAN LPN Intake Chief Complaint : Need medical documentation for physical restrictions Temperature Core : 37.2 DegC(Converted to: 99.0 DegF) Peripheral Pulse Rate : 80 /min Systolic Blood Pressure : 122 mmHg Diastolic Blood Pressure : 72 mmHg NIBP Mean : 89 mmHg BP Location : Right upper extremity Height : 166 cm(Converted to: 5 ft 5 inch(es), 65 inch(es)) Actual Weight : 58.1 kg(Converted to: 128 lb 1 oz) Dosing Weight Clinic : 58.1 kg Clinic BSA : 1.64 Body Mass Index : 21.08 kg/m2 ALEJANDRA GROSSMAN LPN - 09/03/2015 10:59 CDT General Info Information Given By : Patient Languages : Libyan Is Patient Female and 13-50 no hysterectomy : No ALEJANDRA GROSSMAN [facility] - 09/03/2015 10:59 CDT Subjective Pain Symptoms : No ALEJANDRA GROSSMAN LPN - 09/03/2015 10:59 CDT Dependent Habits Exposure to Tobacco Smoke : Care provider denies smoking in home, Other: NEVER Smoking Status : Never smoker Tobacco 2A : No Tobacco Use/Currently Using : No Tobacco Use/Last 30 Days : No Tobacco Use/Last 12 months : No ALEJANDRA GROSSMAN LPN - 09/03/2015 10:59 CDT Caffeine Use Grid Caffeine Use : Current Type : Soft drinks Frequency : Weekly Amount : 3 cans per week ALEJANDRA GROSSMAN LPN - 09/03/2015 10:59 CDT Recreational Drug Use Grid Drug Use : None ALEJANDRA GROSSMAN DISABILITY CASE MANAGER - 09/03/2015 10:59 CDT Source: [employer] Document Id: [id number] CDT!36 documented in this encounter Plan of Treatment Not on filedocumented as of this encounter Visit Diagnoses Not on filedocumented in this encounter Additional Health Concerns Assessment Noted Time PHQ-9 Depression Total Score: 2 07/10/2015 3:55 PM CDT documented as of this encounter
--- OUTSIDE RECORDS SUMMARY | 2021-12-10 15:37 | XMS_ITS | Encounter Summary ---
:1980 Author Organization [facility] Address [address] [place] [address] Care Team Providers Name Role Phone Unavailable Primary Care Provider Unavailable Encounter Details Date Type Department Care Team Description 06/23/2015 Hospital Encounter HX [facility] ED Igor Navas M.B ., [place], M.B. [id number] [id number] (Wo rk) Social History Tobacco Use Types Packs/Day Years Used Date Smoking Tobacco: Never Assessed Sex Assigned at Date Recorded Female 04/15/2017 7:38 PM GRADUATE TEACHING ASSISTANT documented as of this encounter Last Filed Vital Signs Vital Sign Reading Time Taken Comments Blood Pressure 122/82 06/23/2015 8:36 PM GRADUATE TEACHING ASSISTANT Pulse - - Temperature - - Respiratory Rate 22 06/23/2015 8:36 PM GRADUATE TEACHING ASSISTANT Oxygen Saturation - - Inhaled Oxygen Concentration - - Weight 57.9 kg (127 lb 10.3 oz) 06/23/2015 4:48 PM GRADUATE TEACHING ASSISTANT Height - - Body Mass Index 21.01 05/14/2015 8:14 AM GRADUATE TEACHING ASSISTANT documented in this encounter Discharge Summaries Brittany Mckeon RCinthiaN. - 06/23/2015 9:13 PM CST ED Discharge Instructions [address] [address] or [phone] Name: DENICE OWENS Date of : 1980 12:00 AM Visit Date: 06/23/2015 4:45 PM [facility] Number: [id number] Address: [address] [place] [address] [place] [id number] Primary Care Provider: YOBANY VANG MD IMPORTANT: [facility] in [place] would like to thank you for allowing us to assistyou with your healthcare needs. The following includes patient education materials and information regarding your injury/illness Diagnosis: Dehydration; Gastroenteritis Infectious Follow-Up Instructions: With: Address: When: YOBANY VANG [address] [facility] [place] [address] Business (1) Within As Needed Comments: Keep well hydrated by drinking a variety of liquids including Gatoraide. If you crave salt, try drinking broth. Gently advance your diet to discourage nausea. Use the ONDANSETRON as needed and prescribed for nausea. Be extra careful about washing your hands since your condition is likely contageous. Followup with your provider in two days if your symptoms have not significantly improved or resolved. If your symptoms worsen or change in a way that concerns you, please be seen sooner or return to the ER. Your Upcoming Appointments: Date Time Location Provider 08/19/2015 08:15 [facility] Erin MARTINEZ, Tamara Patient Education Materials: Viral Gastroenteritis (6Yr-Adult) Gastroenteritis is another name for the stomach flu. It is most often caused by a virus that affectsthe stomach and intestinal tract. Symptoms include stomach cramping and fever, vomiting and/or diarrhea, and can last from 2 to 7 days. The danger from repeated vomiting or diarrhea is dehydration. This is the loss of too much water andminerals from the body. When this occurs, body fluids must be replaced. Antibiotics are not effective for this illness, but simple home treatment will be helpful. Home Care ?? If symptoms are severe, rest at home for the next 24 hours. ?? Avoid tobacco, caffeine, and alcohol use, which can worsen symptoms. ?? Acetaminophen (Tylenol) or ibuprofen (Motrin, Advil) may be used for fever or pain unless anothermedication was prescribed. NOTE: If you have chronic liver or kidney disease or ever had a stomach ulcer or GI bleeding, talk with your doctor before using these medicines. Aspirin should never be usedin anyone under 18 years of age who is ill with a fever. It may cause severe liver damage. ?? If medicines for diarrhea or vomiting were prescribed, be sure they are taken only as directed. ?? If vomiting, drink small amounts of clear fluids (such as water, sports drinks, clear sodas) at frequent intervals to prevent dehydration. Start with 1 to 2 tablespoons every 10 minutes. Once vomiting stops, follow these guidelines: During The First 12 To 24 Hours follow the diet below: ?? Beverages: Sport drinks like Gatorade, soft drinks without caffeine; bruna rip, mineral water (plain or flavored), decaffeinated tea and coffee. ?? Soups: Clear broth, consomm? and bouillon ?? Desserts: Plain gelatin (Jell-O), Popsicles and fruit juice bars. During The Next 24 Hours you may add the following to the above: ?? Hot cereal, plain toast, bread, rolls, crackers ?? Plain noodles, rice, mashed potatoes, chicken noodle or rice soup ?? Unsweetened canned fruit (avoid pineapple), bananas ?? Limit fat intake to less than 15 grams per day by avoiding margarine, butter, oils, mayonnaise, sauces, gravies, fried foods, peanut butter, meat, poultry, and fish. ?? Limit fiber; avoid raw or cooked vegetables, fresh fruits (except bananas), and bran cereals. ?? Limit caffeine and chocolate. Do not use spices or seasonings except salt. During The Next 24 Hours The patient can gradually resume a normal diet as symptoms lessen. Preventing Spread ?? Hand washing with soap and water is the best way to prevent the spread of viruses. Caregivers should wash their hands before and after touching the sick person. ?? The sick person, as well as everyone in the family, should wash their hands after using the toilet and before meals. ?? Clean the toilet after each use. ?? People with diarrhea should not prepare food for others. If you are preparing your own foods, wash your hands before and after. Follow Up with your doctor as advised. Call your doctor if you are not improving over the next 2 to 3 days. Ifa stool (diarrhea) sample was taken, you may call in 2 days (or as directed) for the results. Get Prompt Medical Attention if any of the following occur: ?? Increasing abdominal pain ?? Continued vomiting (unable to keep liquids down) ?? Frequent diarrhea (more than 5 times a day) ?? Blood in vomit or stool (black or red color) ?? Dark urine, reduced urine output, or extreme thirst ?? Weakness, dizziness, fainting ?? Drowsiness, confusion, stiff neck, or seizure ?? Fever of 100.4?F (38?C) oral or higher, not better with fever medication ?? New rash ?? [phone] [facility], [address] [place] [address], [place] [address]. All rights reserved. This information is not [...] if you dont have one. Go to [email or web address] and click on Create Your Account. Then, follow the directions to complete the online form. Youll be asked for your [facility] number which you can find at the top of this document. ED Tests and Procedures: Order Status Glucose POC. Completed EKG-Lab. InProcess CBC (includes Auto Differential) Completed Comprehensive Metabolic Panel Completed Automated Diff-5 Part Completed Urinalysis with Culture if Indicated Completed Beta hCG Qualitative Urine Completed Discharge Prescriptions & Home Medications: Medication/Strength Dose Route Frequency Indications/Special Instructions/Comments/Notes ondansetron (ondansetron 4 mg oral tablet, disintegrating) 4 mg Oral four times a day as needed for Nausea ondansetron (ondansetron 4 mg oral tablet, disintegrating) See Instructions 1 tab(s) PO 4 times per day indomethacin (indomethacin 25 mg oral capsule) 50 mg Oral three times a day as needed for Pain Take with food isometheptene/dichloralphenazon/acetaminophen (Midrin oral capsule) See Instructions 2 capsules oncefollowed by 1 capsule every 2 hour up to 5 capsules per 24 hour period oxyCODONE-acetaminophen (Percocet 5/325 oral tablet) 1 to 2 tablets Oral once a day (at bedtime) as needed for Pain No more than 4,000mg acetaminophen/24hrs dextroamphetamine-amphetamine (dextroamphetamine-amphetamine 5 mg oral tablet) See Instructions 1 tab(s) PO DAILY AM AND NOON. Ok to fill 30 days after the last visit. 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 Pt uses [facility]. acetaminophen (Tylenol) Oral ibuprofen (ibuprofen) azelaic acid topical (azelaic acid 20% topical cream) 1 oliver Topical two times a day multivitamin with minerals (multivitamin with minerals Multiple Vitamins with Zinc oral capsule) 1 cap(s) Oral once a day with magnesium Comment: Attention: If you have any medications at home that are not on this list, DO NOT take them until youcontact your provider for clarification. Give a copy of your medication list to your primary care provider. Update your medication list any time medications or doses are changed and carry your medication list at all times in case of emergency. IMPORTANT: We examined and treated you today on an emergency basis only. This was not a substitute for, or an effort to provide, complete medical care. In most cases, you must let your doctor check youagain. Tell your doctor about any new or lasting problems. We cannot recognize and treat all injuries or illnesses in one Emergency Department visit. If you had special tests, such as EKG's or X- rays, we will review them again within 24 hours. We will call you if there are any new suggestions. Please follow the instructions above carefully. If you are being transferred to another facility your followup plan of care will be determined by the receiving facility. If you are a patient that is being discharged from the Emergency Department after receiving narcotics or other medications that may impair your judgment you may be a risk to yourself or others if you operate a motor vehicle. We recommend that you arrange a ride home with a responsible libertarian. ROMAN Velasco JENNIFER LYNN , or responsible libertarian have received this information and my questions have been answered. I have discussed any challenges I see with this plan with the nurse or physician. Patient Signature or Responsible Democrat/Relationship Date Time Provider Signature Date Time IMPORTANT: We examined and treated you today on an emergency basis only. This was not a substitute for, or an effort to provide, complete medical care. In most cases, you must let your doctor check youagain. Tell your doctor about any new or lasting problems. We cannot recognize and treat all injuries or illnesses in one Emergency Department visit. If you had special tests, such as EKG's or X- rays, we will review them again within 24 hours. We will call you if there are any new suggestions. Please follow the instructions above carefully. If you are being transferred to another facility your followup plan of care will be determined by the receiving facility. If you are a patient that is being discharged from the Emergency Department after receiving narcotics or other medications that may impair your judgment you may be a risk to yourself or others if you operate a motor vehicle. We recommend that you arrange a ride home with a responsible libertarian. ROMAN Velasco JENNIFER LYNN , or responsible libertarian have received this information and my questions have been answered. I have discussed any challenges I see with this plan with the nurse or physician. Patient Signature or Responsible Democrat/Relationship Date Time Provider Signature Date Time This document has images extracted. Please consider using [employer] for all your patient education needs. Source: [facility] POWERCHART Document Id: [id number] UATE TEACHING ASSISTANT Brittany Mckeon, RCinthiaN. - 06/23/2015 9:13 PM CST ED Depart Summary [facility] Emergency Department Clinical Discharge Summary PERSON INFORMATION Name DENICE OWENS Age 35 Years 1980 12:00 AM Sex Female Language New Zealander PCP YOBANY VANG MD Marital Status Visit Id Visit Reason Syncope/Near syncope; Weakness or fatigue; Vomiting; VOMITING / WEAK Specialty Enc Type Emergency Med Service Emergency Medicine Referred by Track Group [facility] ED/UC Discharge 06/23/2015 8:44 PM Tracking Id [id number] Checkout 06/23/2015 8:44 PM Checkin 06/23/2015 4:45 PM Acuity 2 -Emergent Dispo Type * Discharged to Home or Self Care Arrival 06/23/2015 4:45 PM Reg Status Complete LOS 000 03:59 Address: [address] [place] [phone] Comment: PROVIDER INFORMATION Provider Role Provider Contact Time BRITTANY MCKEON RN ED Nurse 06/23/15 17:00 IGOR NAVAS MD ED Provider 06/23/15 17:14 DIAGNOSIS Dehydration; Gastroenteritis Infectious Comment: PATIENT EDUCATION INFORMATION Instructions: GASTROENTERITIS, Viral [6y-Adult] Follow up: With: Address: When: YOBANY VANG [address] [place] [id number] [facility] (1) Within As Needed Comments: Keep well hydrated by drinking a variety of liquids including Gatoraide. If you crave salt, try drinking broth. Gently advance your diet to discourage nausea. Use the ONDANSETRON as needed and prescribed for nausea. Be extra careful about washing your hands since your condition is likely contageous. Followup with your provider in two days if your symptoms have not significantly improved or resolved. If your symptoms worsen or change in a way that concerns you, please be seen sooner or return to the ER. Source: [facility] POWERCHART Document Id: [id number] UATE TEACHING ASSISTANT documented in this encounter Medications at Time of Discharge Medication Sig Dispensed Refills Start Date End Date ACETAMINOPHEN ORAL Take by mouth. 0 07/16/2014 IBUPROFEN ORAL ibuprofen 0 07/16/2014 MULTIVITAMIN WITH MINERALS Take 1 capsule by 0 ORAL mouth daily. documented as of this encounter ED Notes Brittany Mckeon R.N. - 06/23/2015 8:44 PM CST ED Disposition Summary ED Disposition Summary Entered On: 06/23/2015 21:13 GRADUATE TEACHING ASSISTANT Performed On: 06/23/2015 20:44 GRADUATE TEACHING ASSISTANT by BRITTANY MCKEON RN ED Disposition Summary Present in Room During Exam/Procedure : Spouse Mode of Discharge : Ambulatory Transportation : Private vehicle Discharge From ED With : Home Med List Printed Discharge Instructions Given to Patient : Yes Patient Status at Discharge from ED : Improved BRITTANY MCKEON RN - 06/23/2015 21:12 GRADUATE TEACHING ASSISTANT Source: [employer] Document Id: [id number] GRADUATE TEACHING ASSISTANT!8 UATE TEACHING ASSISTANT Brittany Mckeon R.N. - 06/23/2015 8:30 PM CST ED Nurse Reassess ED Nurse Reassess Entered On: 06/23/2015 21:12 GRADUATE TEACHING ASSISTANT Performed On: 06/23/2015 20:30 GRADUATE TEACHING ASSISTANT by BRITTANY MCKEON RN Pain Assessment Pain Symptoms : Yes BRITTANY MCKEON RN - 06/23/2015 21:09 GRADUATE TEACHING ASSISTANT Pain Scale Pain Scale Verbal 0-10 : Open BRITTANY MCKEON RN - 06/23/2015 21:09 GRADUATE TEACHING ASSISTANT Pain Pain Assessment Grid Pain 1 Location : Lower back Intensity : 1 BRITTANY MCKEON RN - 06/23/2015 21:09 GRADUATE TEACHING ASSISTANT Resp Reassess Respiratory Patient Stated Symptoms : None Distress : None Airway : Patent Respiratory Pattern : Regular Respirations : Unlabored Cough : None BRITTANY MCKEON RN - 06/23/2015 21:09 GRADUATE TEACHING ASSISTANT CV Reassess CV Patient Stated Symptoms : None Skin Color : Normal for ethnicity Skin Description : Dry Skin Temperature : Warm Nail Bed Color : Thrall Capillary Refill : Less than 2 seconds Heart Rhythm : Regular BRITTANY MCKEON RN - 06/23/2015 21:09 GRADUATE TEACHING ASSISTANT Neuro Reassess Last Well Time Known : Not applicable Orientation : Oriented x 3 Characteristics of Speech : Clear Level of Consciousness : Alert BRITTANY MCKEON RN - 06/23/2015 21:09 GRADUATE TEACHING ASSISTANT Behavioral Health Screen/Safety Reassmt Affect/Behavior : Calm, Cooperative, Appropriate Behavioral Health Note : reports feeling better BRITTANY MCKEON RN - 06/23/2015 21:09 GRADUATE TEACHING ASSISTANT Integumentary Integumentary Patient Stated Symptoms : None Skin Turgor : Elastic Skin Integrity : Intact Mucous Membrane Color : Thrall Mucous Membrane Description : Moist Skin Color : Normal for ethnicity Skin Description : Dry Skin Temperature : Warm BRITTANY MCKEON RN - 06/23/2015 21:09 GRADUATE TEACHING ASSISTANT Source: [employer] Document Id: [id number] GRADUATE TEACHING ASSISTANT!42 UATE TEACHING ASSISTANT Brittany Mckeon R.N. - 06/23/2015 7:40 PM CST ED Nurse Reassess ED Nurse Reassess Entered On: 06/23/2015 20:51 GRADUATE TEACHING ASSISTANT Performed On: 06/23/2015 19:40 GRADUATE TEACHING ASSISTANT by BRITTANY MCKEON RN Pain Assessment Pain Symptoms : Yes BRITTANY MCKEON RN - 06/23/2015 20:49 GRADUATE TEACHING ASSISTANT Pain Scale Pain Scale Verbal 0-10 : Open BRITTANY MCKEON RN - 06/23/2015 20:49 GRADUATE TEACHING ASSISTANT Pain Pain Assessment Grid Pain 1 Location : Lower back Laterality : Bilateral Intensity : 2 BRITTANY MCKEON RN - 06/23/2015 20:49 GRADUATE TEACHING ASSISTANT Resp Reassess Respiratory Patient Stated Symptoms : None Distress : None Airway : Patent Respiratory Pattern : Regular Respirations : Unlabored Cough : None BRITTANY MCKEON RN - 06/23/2015 20:49 GRADUATE TEACHING ASSISTANT CV Reassess CV Patient Stated Symptoms : None Skin Color : Normal for ethnicity Skin Description : Dry Skin Temperature : Warm Nail Bed Color : Thrall Capillary Refill : Less than 2 seconds Heart Rhythm : Regular BRITTANY MCKEON RN - 06/23/2015 20:49 GRADUATE TEACHING ASSISTANT Neuro Reassess Last Well Time Known : Not applicable Orientation : Oriented x 3 Characteristics of Speech : Clear Level of Consciousness : Alert BRITTANY MCKEON RN - 06/23/2015 20:49 GRADUATE TEACHING ASSISTANT Behavioral Health Screen/Safety Reassmt Affect/Behavior : Calm, Cooperative, Appropriate BRITTANY MCKEON RN - 06/23/2015 20:49 GRADUATE TEACHING ASSISTANT /OB Reassess /OB Note : pt transfers to/from commode. denies feeling lightheaded. urine is dk yellow- urine sample obtained and sent to lab for UA BRITTANY MCKEON RN - 06/23/2015 20:49 GRADUATE TEACHING ASSISTANT Integumentary Integumentary Patient Stated Symptoms : None Skin Turgor : Elastic Skin Integrity : Intact Mucous Membrane Color : Thrall Mucous Membrane Description : Moist Skin Color : Normal for ethnicity Skin Description : Dry Skin Temperature : Warm BRITTANY MCKEON RN - 06/23/2015 20:49 GRADUATE TEACHING ASSISTANT Source: [employer] Document Id: [id number] GRADUATE TEACHING ASSISTANT!44 UATE TEACHING ASSISTANT Brittany Mckeon R.N. - 06/23/2015 6:51 PM CST ED Nurse Reassess ED Nurse Reassess Entered On: 06/23/2015 18:51 GRADUATE TEACHING ASSISTANT Performed On: 06/23/2015 18:51 GRADUATE TEACHING ASSISTANT by BRITTANY MCKEON RN Pain Assessment Pain Symptoms : Yes BRITTANY MCKEON RN - 06/23/2015 18:51 GRADUATE TEACHING ASSISTANT Pain Scale Pain Scale Verbal 0-10 : Open BRITTANY MCKEON RN - 06/23/2015 18:51 GRADUATE TEACHING ASSISTANT Pain Pain Assessment Grid Pain 1 Location : Lower back Intensity : 6 BRITTANY MCKEON RN - 06/23/2015 18:51 GRADUATE TEACHING ASSISTANT Resp Reassess Respiratory Patient Stated Symptoms : None Distress : None Airway : Patent Respiratory Pattern : Regular Respirations : Unlabored Cough : None BRITTANY MCKEON RN - 06/23/2015 18:51 GRADUATE TEACHING ASSISTANT CV Reassess CV Patient Stated Symptoms : None Skin Color : Normal for ethnicity Skin Description : Dry Skin Temperature : Warm Nail Bed Color : Thrall Capillary Refill : Less than 2 seconds Heart Rhythm : Regular BRITTANY MCKEON RN - 06/23/2015 18:51 GRADUATE TEACHING ASSISTANT Neuro Reassess Last Well Time Known : Not applicable Orientation : Oriented x 3 Characteristics of Speech : Clear Level of Consciousness : Alert BRITTANY MCKEON RN - 06/23/2015 18:51 GRADUATE TEACHING ASSISTANT Behavioral Health Screen/Safety Reassmt Affect/Behavior : Calm, Cooperative, Appropriate BRITTANY MCKEON RN - 06/23/2015 18:51 GRADUATE TEACHING ASSISTANT Source: [employer] Document Id: [id number] GRADUATE TEACHING ASSISTANT!32 UATE TEACHING ASSISTANT Brittany Mckeon R.N. - 06/23/2015 6:10 PM CST ED Nurse Reassess ED Nurse Reassess Entered On: 06/23/2015 19:00 GRADUATE TEACHING ASSISTANT Performed On: 06/23/2015 18:10 GRADUATE TEACHING ASSISTANT by BRITTANY MCKEON RN Pain Assessment Pain Symptoms : Yes BRITTANY MCKEON RN - 06/23/2015 18:59 GRADUATE TEACHING ASSISTANT Pain Scale Pain Scale Verbal 0-10 : Open BRITTANY MCKEON RN - 06/23/2015 18:59 GRADUATE TEACHING ASSISTANT Pain Pain Assessment Grid Pain 1 Location : Lower back Laterality : Bilateral Intensity : 7 BRITTANY MCKEON RN - 06/23/2015 18:59 GRADUATE TEACHING ASSISTANT Resp Reassess Respiratory Patient Stated Symptoms : None Distress : None Airway : Patent Respiratory Pattern : Regular Respirations : Unlabored Cough : None BRITTANY MCKEON RN - 06/23/2015 18:59 GRADUATE TEACHING ASSISTANT CV Reassess CV Patient Stated Symptoms : None Skin Color : Normal for ethnicity Skin Description : Dry Skin Temperature : Warm Nail Bed Color : Thrall Capillary Refill : Less than 2 seconds Heart Rhythm : Regular BRITTANY MCKEON RN - 06/23/2015 18:59 GRADUATE TEACHING ASSISTANT Neuro Reassess Last Well Time Known : Not applicable Orientation : Oriented x 3 Characteristics of Speech : Clear Level of Consciousness : Alert BRITTANY MCKEON RN - 06/23/2015 18:59 GRADUATE TEACHING ASSISTANT Behavioral Health Screen/Safety Reassmt Affect/Behavior : Anxious, Restless Behavioral Health Note : pt restless after haldol administered. Dr. Navas notified. will administer benadryl IV- see MAR. BRITTANY MCKEON RN - 06/23/2015 18:59 GRADUATE TEACHING ASSISTANT Source: [employer] Document Id: [id number] GRADUATE TEACHING ASSISTANT!34 UATE TEACHING ASSISTANT Brittany Mckeon R.N. - 06/23/2015 5:50 PM CST ED Nurse Reassess ED Nurse Reassess Entered On: 06/23/2015 19:03 GRADUATE TEACHING ASSISTANT Performed On: 06/23/2015 17:50 GRADUATE TEACHING ASSISTANT by BRITTANY MCKEON RN Pain Assessment Pain Symptoms : Yes BRITTANY MCKEON RN - 06/23/2015 19:01 GRADUATE TEACHING ASSISTANT Pain Scale Pain Scale Verbal 0-10 : Open BRITTANY MCKEON RN - 06/23/2015 19:01 GRADUATE TEACHING ASSISTANT Pain Pain Assessment Grid Pain 1 Location : Lower back Laterality : Bilateral Intensity : 8 BRITTANY MCKEON RN - 06/23/2015 19:01 GRADUATE TEACHING ASSISTANT Resp Reassess Respiratory Patient Stated Symptoms : None Distress : None Airway : Patent Respiratory Pattern : Regular Respirations : Labored, Tachypnea Cough : None BRITTANY MCKEON RN - 06/23/2015 19:01 GRADUATE TEACHING ASSISTANT CV Reassess CV Patient Stated Symptoms : None Skin Color : Normal for ethnicity Skin Description : Dry Skin Temperature : Warm Nail Bed Color : Thrall Capillary Refill : Less than 2 seconds Heart Rhythm : Regular Cardiac Rhythm : Sinus tachycardia BRITTANY MCKEON RN - 06/23/2015 19:01 GRADUATE TEACHING ASSISTANT Neuro Reassess Last Well Time Known : Not applicable Orientation : Oriented x 3 Characteristics of Speech : Clear Level of Consciousness : Alert BRITTANY MCKEON RN - 06/23/2015 19:01 GRADUATE TEACHING ASSISTANT Behavioral Health Screen/Safety Reassmt Affect/Behavior : Calm, Cooperative, Appropriate BRITTANY MCKEON RN - 06/23/2015 19:01 GRADUATE TEACHING ASSISTANT Integumentary Integumentary Patient Stated Symptoms : None Skin Turgor : Elastic Skin Integrity : Intact Mucous Membrane Color : Thrall Mucous Membrane Description : Moist Skin Color : Normal for ethnicity Skin Description : Dry Skin Temperature : Warm BRITTANY MCKEON RN - 06/23/2015 19:01 GRADUATE TEACHING ASSISTANT Source: [facility] POWERCHART Document Id: [id number] GRADUATE TEACHING ASSISTANT!43 UATE TEACHING ASSISTANT Igor Navas M.B., Ch.B. - 06/23/2015 5:24 PM CST Vomiting, Weakness or fatigue, Syncope/Near syncope Document Contains Addenda Addendum by IGOR NAVAS MD on 23 June 2015 20:41 GRADUATE TEACHING ASSISTANT I discussed the patient's glucosuria and elevated blood sugar and the need for followup. As indicated above, I think there is a possibility this is spurious and not an component of today's presentation. With regard to the latter, she did receive IV D5LR. I would not expect this to bump her sugar thismuch but perhaps in the setting of elevated cortisol from her illness, she has had less tight endogenous glucose control. In any event, she will followup this week for a recheck. Electronically Signed By: IGOR NAVAS MD On: 06/23/2015 08:32 PM Modified by and Electronically Signed by: IGOR NAVAS MD On: 06/23/2015 08:36 PM Co-Signed By: IGOR NAVAS MD On: 06/23/2015 08:36 PM Modified by and Electronically Signed by: IGOR NAVAS MD On: 06/23/2015 08:41 PM Addendum by IGOR NAVAS MD on 23 June 2015 20:36 GRADUATE TEACHING ASSISTANT UA is negative for infection. Glucose inurine is incongruous with the patient's serum glucose level. Nursing indicates a similar situation occurred yesterday. May be lab error. Hemoconcentration. Normal renal function and electrolytes. Electronically Signed By: IGOR NAVAS MD On: 06/23/2015 08:32 PM Modified by and Electronically Signed by: IGOR NAVAS MD On: 06/23/2015 08:36 PM Co-Signed By: IGOR NAAVS MD On: 06/23/2015 08:36 PM Modified by and Electronically Signed by: IGOR NAVAS MD On: 06/23/2015 08:36 PM Vomiting, Weakness or fatigue, Syncope/Near syncope Patient: DENICE OWENS Age: 35 years Sex: Female : 1980 Author: IGOR NAVAS MD Attachments: None Basic Information Time seen: Date & time 06/23/2015 17:24:00. History source: Patient. Arrival mode: Private vehicle. History limitation: None. 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 Her had similar symptoms yesterday. She estimates about 10 episodes of non-bloody, non-bilious vomiting andan episode of diarrhea. She denies any significant abdominal pain. She took Imodium prior to arrival. She takes Percocet for chronic headaches and neck pain. She has had an appendectomy, BROOKE, and cesarian section in the past, though none recently. She reports RIGHT CVA tenderness that seems roughly coincident with her vomiting. She denies any urinary symptoms. She reports chills but denies fevers or sweats. She thinks she may have fallen unconscious and her says he found her laying on the lena or. She is denying any symptoms or signs of injury. Review of Systems Constitutional symptoms: Chills, but no fever or no sweats. Skin symptoms: No jaundice or no rash. Eye symptoms: No recent vision problems. ENMT symptoms: No ear pain, no sore throat or no nasal congestion. Respiratory symptoms: No shortness of breath, no cough or no hemoptysis. Cardiovascular symptoms: No chest pain or no palpitations. Gastrointestinal symptoms: Nausea, vomiting and diarrhea, but no abdominal pain. Genitourinary symptoms: No dysuria or no hematuria. Musculoskeletal symptoms: Back pain. Neurologic symptoms: Headache, but no dizziness or no altered level of consciousness. Psychiatric symptoms: Anxiety, but no depression. Endocrine symptoms: Negative except as documented in HPI. Hematologic/Lymphatic symptoms: Negative except as documented in HPI. Allergy/immunologic symptoms: Negative except as documented in HPI. Additional review of systems information: All other systems reviewed and otherwise negative, All systems reviewed as documented in chart. Health Status Allergies: Allergic Reactions (All) Severe Toradol IV/IM- Pruritis. Severity Not Documented TraMADol- Nausea, dizzy. Canceled/Inactive Reactions (All) NKA. Medications: Per nurse's notes. Immunizations: Per nurse's notes. Menstrual history: Per nurse's notes. history: reviewed in medical record. Past Medical/ Family/ Social History Medical history: Resolved acute pyelonephritis (590.10): Onset in 2010 at 30 years. Resolved. Bilateral tubal ligation (201362107): Onset in 2008 at 28 years. Resolved. delivery NOS (669.71): Onset in 2001 at 21 years. Resolved. Headache Migraine (346.90): Onset in 2000 at 20 years. Resolved. section (): Onset in 1999 at 19 years. Resolved. Appendectomy ([id number]): Onset in 1997 at 17 years. Resolved. (197151501): Resolved in 1999 at 18 years. ([id number]): Resolved in 2000 at 19 years., Reviewed as documented in chart. Surgical history: Bilateral salpingectomy ([id number]) on 07/12/2014 at 34 Years. Total laparoscopic hysterectomy ([id number]) on 07/12/2014 at 34 Years. Appendectomy ([id number]). section (). Comments: 02/12/2012 10:14 - DENICE DAVIS x2 Endometrial ablation ([id number]). Bilateral tubal ligation (053903126)., Reviewed as documented in chart. Family history: Ulcerative colitis Mother: onset at 50 . 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 Hypertension Father Migraine Mother Brother Depression Sister Alzheimer's disease Grandfather (paternal, ) , Reviewed as documented in chart. Social history: Reviewed as documented in chart, Alcohol use: per nurses notes, Tobacco use: per nurses notes, Drug use: per nurses notes, Occupation: per nurses notes, Family/social situation: per nurses notes. Problem list: All Problems Anxiety disorder NOS / 300.00 / Confirmed Posttraumatic Stress Disorder / 309.81 / Confirmed external records Depression / 311 / Confirmed external records ADHD. / 314.01 / Confirmed Pain Neck / 723.1 / Confirmed Pain Myofascial Cervical / 723.1 / Confirmed Pain Thoracic Myofascial / 724.1 / Confirmed Pain Limb Generalized / 729.5 / Confirmed Sleep disturbance, unspecified / 780.50 / Confirmed Flushing / 782.62 / Confirmed Headache / 784.0 / Confirmed Headache (CHRISTINE) Cervicogenic / 784.0 / Confirmed Tachycardia NOS / 785.0 / Confirmed Palpitation / 785.1 / Confirmed Closed fracture of phalanx of foot / 826.0 / Confirmed Resolved: Appendectomy / [id number] Resolved: / 876103035 Resolved: / 308781923 Resolved: section / 22352980 Resolved: Headache Migraine / 346.90 Resolved: Bilateral tubal ligation / 260380020 Resolved: acute pyelonephritis / 590.10 Resolved: delivery NOS / 669.71. Physical Examination Vital Signs: Vital Signs 06/23/2015 17:45 GRADUATE TEACHING ASSISTANT Heart Rate Monitored 109 /min HI Pulse SpO2 109 /min Respiratory Rate 24 /min HI SpO2 100 % Systolic Blood Pressure 120 mmHg Diastolic Blood Pressure 75 mmHg Mean Arterial Pressure 88 mmHg 06/23/2015 17:30 GRADUATE TEACHING ASSISTANT Heart Rate Monitored 131 /min HI Pulse SpO2 125 /min Respiratory Rate 23 /min HI SpO2 99 % Systolic Blood Pressure 108 mmHg Diastolic Blood Pressure 82 mmHg Mean Arterial Pressure 91 mmHg 06/23/2015 17:15 GRADUATE TEACHING ASSISTANT Heart Rate Monitored 122 /min HI Pulse SpO2 126 /min Respiratory Rate 29 /min HI SpO2 98 % Systolic Blood Pressure 108 mmHg Diastolic Blood Pressure 85 mmHg Mean Arterial Pressure 93 mmHg 06/23/2015 17:00 GRADUATE TEACHING ASSISTANT Heart Rate Monitored 139 /min HI Pulse SpO2 140 /min Respiratory Rate 44 /min >HHI SpO2 100 % Systolic Blood Pressure 108 mmHg Diastolic Blood Pressure 85 mmHg Mean Arterial Pressure 93 mmHg 06/23/2015 16:48 GRADUATE TEACHING ASSISTANT Temperature Core 37.6 DegC Apical Heart Rate 140 /min HI Respiratory Rate 40 /min >HHI SpO2 98 % Systolic Blood Pressure 108 mmHg Diastolic Blood Pressure 76 mmHg Mean Arterial Pressure 87 mmHg , oxygen saturation. General: Alert, mild distress and anxious, but not ill-appearing. Skin: Warm, dry, intact and normal for ethnicity. Head: Normocephalic. Neck: Trachea midline. Eye: Extraocular movements are intact and normal conjunctiva. Ears, nose, mouth and throat: dehydration of the oral mucosa. Cardiovascular: Normal peripheral perfusion and No edema. Respiratory: Respirations are non-labored and Symmetrical chest wall expansion. Chest wall: No deformity. Back: mild right CVA tenderness to percussion; left is negative. Gastrointestinal: Soft, Nontender and Non distended. Neurological: Alert and oriented to person, place, time, and situation and normal speech observed. Psychiatric: Cooperative, appropriate mood & affect and normal judgment. Medical Decision Making Differential Diagnosis:Nausea, vomiting, gastroenteritis, food toxicity, gastritis, ischemic bowel, bowel obstruction, renal colic, dehydration, electrolyte abnormality, viral syndrome not appendicitis, not . Differential Diagnosis:Syncope, near syncope. Differential Diagnosis:Hypoglycemia. Rationale:The patient has been seen for lightheadedness type symptoms in the past without any specific findings to account for it. She has no seizure history and is denying any injuries from her possible syncope. Given the fact that her had nearly identical symptoms yesterday, I am inclined tobelieve that she has caught the GI bug that has been going around lately. We are conducting labs andrehydrating her currently., The patient has a history of sinus tachycardia and I noted that she is currently tachycardic. 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 Documents reviewed:Emergency department nurses' notes. Electrocardiogram:Time 06/23/2015 17:00:00, rate 142, normal sinus rhythm, EP Interp, Computer reading PA interval as short but likely rate related. I do not see stigmata of WPW. Reexamination/ Reevaluation Time: 06/23/2015 19:30:00 . Course: improving. Pain status: decreased. Notes: The patient reports she is feeling much better but has yet to urinate. We will continue fluids until she does., Rechecked patient again at 2029. She indicates she is feeling even better and has voided a second time. Discussed home measures and the near for care to prevent infection of others. Impression and Plan Diagnosis gastroenteritis dehydration Plan Condition: Improved, Stable. Disposition: Discharged: Time 06/23/2015 20:32:00, to home. Prescriptions: Prescription [facility]: ondansetron 4 mg oral tablet, disintegrating (Prescribe): See Instructions, 1 tab(s) PO 4 times per day, 2 tab(s), 0 Refill(s). Patient was given the following educational materials: GASTROENTERITIS, Viral [6y-Adult]. Follow up with: YOBANY VANG Within As Needed Keep well hydrated by drinking a variety of liquids including Gatoraide. If you crave salt, try drinking broth. Gently advance your diet to discourage nausea. Use the ONDANSETRON as needed and prescribed for nausea. Be extra careful about washing your hands since your condition is likely contageous. Followup with your provider in two days if your symptoms have not significantly improved or resolved. If your symptoms worsen or change in a way that concerns you, please be seen sooner or return to the ER.. Counseled: Patient, Regarding diagnosis, Regarding diagnostic results, Regarding treatment plan, Regarding prescription, Patient indicated understanding of instructions. Notes: All questions asked were answered and the patient is discharged in stable and much improved condition.. Electronically Signed By: IGOR NAVAS MD On: 06/23/2015 08:32 PM Modified by and Electronically Signed by: IGOR NAVAS MD On: 06/23/2015 08:36 PM Co-Signed By: IGOR NAVAS MD On: 06/23/2015 08:36 PM Source: [facility] First Opinion Document Id: {[id number]} UATE TEACHING ASSISTANT Brittany Mckeon, RCinthiaN. - 06/23/2015 4:48 PM CST ED Primary Assessment Document Has Been Updated ED Primary Assessment Entered On: 06/23/2015 17:27 GRADUATE TEACHING ASSISTANT Performed On: 06/23/2015 16:48 GRADUATE TEACHING ASSISTANT by BRITTANY MCKEON RN Reason For Visit (As Of: 06/23/2015 17:27:35 GRADUATE TEACHING ASSISTANT) Problems(Active) ADHD. (ICD-9-CM :314.01 ) Name of Problem: ADHD. ; Recorder: YOBANY VANG MD; Confirmation: Confirmed ; Classification: Medical ; Code: 314.01 ; Contributor System: ISORG ; Last Updated: 02/03/2012 17:05 CDT ; Life Cycle Date: 02/03/2012 ; Life Cycle Status: Active ; Responsible Provider: YOBANY LARRY MD; Vocabulary: ICD-9-CM Anxiety disorder NOS (ICD-9-CM :300.00 ) Name of Problem: Anxiety disorder NOS ; Onset Date: 07/01/2011 ; Recorder: LEEANN SANDERS MD; Confirmation: Confirmed ; Classification: Medical ; Code: 300.00 ; Last Updated: 07/01/2011 5:45 GRADUATE TEACHING ASSISTANT ; Life Cycle Status: Active ; Responsible Provider: LEEANN SANDERS MD;Vocabulary: ICD-9-CM Closed fracture of phalanx of foot (ICD-9-CM :826.0 ) Name of Problem: Closed fracture of phalanx offoot ; Onset Date: 01/23/2013 ; Recorder: FIDEL EDMONDS DPM; Confirmation: Confirmed ; Classification: Medical ; Code: 826.0 ; Last Updated: 01/23/2013 9:40 CDT ; Life Cycle Status: Active ; Responsible Provider: FIDEL EDMONDS DPM; Vocabulary: ICD-9-CM Depression (ICD-9-CM :311 ) Name of Problem: Depression ; Recorder: DENICE DAVIS; Confirmation: Confirmed ; Classification: Medical ; Code: 311 ; Contributor System: ISORG ; Last Updated: 02/12/2012 10:13 CDT ; Life Cycle Date: 02/12/2012 ; Life Cycle Status: Active ; Responsible Provider:DENICE DAVIS; Vocabulary: ICD-9-CM ; Comments: 02/12/2012 10:13 - DENICE DAVIS external records Flushing (ICD-9-CM :782.62 ) Name of Problem: Flushing ; Onset Date: 07/14/2011 ; Recorder: TO NGO RN, CNP; Confirmation: Confirmed ; Classification: UPDATE NEEDED ; Code: 782.62 ; Last Updated: 07/14/2011 15:30 CDT ; Life Cycle Status: Active ; Responsible Provider: TO NGO RN, CNP; Vocabulary: ICD-9-CM Headache (ICD-9-CM :784.0 ) Name of Problem: Headache ; Onset Date: 07/14/2011 ; Recorder: TO NGO RN, CNP; Confirmation: Confirmed ; Classification: Medical ; Code: 784.0 ; Last Updated: 07/14/2011 15:30 CDT ; Life Cycle Status: Active ; Responsible Provider: TO NGO RN, CNP; Vocabulary: ICD-9-CM Headache (CHRISTINE) Cervicogenic (ICD-9-CM :784.0 ) Name of Problem: Headache (CHRISTINE) Cervicogenic ; Recorder: NATALEE CARLSON MD; Confirmation: Confirmed ; Classification: Medical ; Code: 784.0 ; Contributor System: ISORG ; Last Updated: 10/10/2014 15:18 CDT ; Life Cycle Status: Active ; Responsible Provider:NATALEE CARLSON MD; Vocabulary: ICD-9-CM Pain Limb Generalized (ICD-9-CM :729.5 ) Name of Problem: Pain Limb Generalized ; Recorder: MAINOR CARLSON MD; Confirmation: Confirmed ; Classification: Medical ; Code: 729.5 ; Contributor System: WrappChart ; Last Updated: 04/27/2014 15:51 GRADUATE TEACHING ASSISTANT ; Life Cycle Status: Active ; Responsible Provider: NATALEE CARLSON MD; Vocabulary: ICD-9-CM Pain Myofascial Cervical (ICD-9-CM :723.1 ) Name of Problem: Pain Myofascial Cervical ; Recorder: NATALEE CARLSON MD; Confirmation: Confirmed ; Classification: Medical ; Code: 723.1 ; Contributor System: PowerChart ; Last Updated: 05/18/2014 16:10 GRADUATE TEACHING ASSISTANT ; Life Cycle Status: Active ; Responsible Provider: NATALEE CARLSON MD; Vocabulary: ICD-9-CM Pain Neck (ICD-9-CM :723.1 ) Name of Problem: Pain Neck ; Recorder: NATALEE CARLSON MD; Confirmation: Confirmed ; Classification: Medical ; Code: 723.1 ; Contributor System: PowerChart ; Last Updated: 04/27/2014 14:57 GRADUATE TEACHING ASSISTANT ; Life Cycle Status: Active ; Responsible Provider: NATALEE CARLSON MD; Vocabulary: ICD-9-CM Pain Thoracic Myofascial (ICD-9-CM :724.1 ) Name of Problem: Pain Thoracic Myofascial ; Recorder: NATALEE CARLSON MD; Confirmation: Confirmed ; Classification: Medical ; Code: 724.1 ; Contributor System: PowerChart ; Last Updated: 06/22/2014 14:56 GRADUATE TEACHING ASSISTANT ; Life Cycle Status: Active ; Responsible Provider: NATALEE CARLSON MD; Vocabulary: ICD-9-CM Palpitation (ICD-9-CM :785.1 ) Name of Problem: Palpitation ; Onset Date: 07/01/2011 ; Recorder: LEEANN SANDERS MD; Confirmation: Confirmed ; Classification: Medical ; Code: 785.1 ; Last Updated: 07/01/2011 6:47 GRADUATE TEACHING ASSISTANT ; Life Cycle Status: Active ; Responsible Provider: LEEANN SANDERS MD; Vocabulary: ICD-9-CM Posttraumatic Stress Disorder (ICD-9-CM :309.81 ) Name of Problem: Posttraumatic Stress Disorder ; Recorder: DENICE DAVIS; Confirmation: Confirmed ; Classification: Medical ; Code: 309.81 ; Contributor System: PowerChart ; Last Updated: 02/12/2012 10:13 CDT ; Life Cycle Date: 02/12/2012 ; Life Cycle Status: Active ; Responsible Provider: DENICE DAVIS; Vocabulary: ICD-9-CM ; Comments: 02/12/2012 10:13 - DENICE DAVIS external records Sleep disturbance, unspecified (ICD-9-CM :780.50 ) Name of Problem: Sleep disturbance, unspecified ;Onset Date: 07/14/2011 ; Recorder: TO NGO RN, CNP; Confirmation: Confirmed ; Classification:Medical ; Code: 780.50 ; Last Updated: 07/14/2011 15:29 CDT ; Life Cycle Status: Active ; Responsible Provider: TO NGO RN, CNP; Vocabulary: ICD-9-CM Tachycardia NOS (ICD-9-CM :785.0 ) Name of Problem: Tachycardia NOS ; Onset Date: 07/14/2011 ; Recorder: TO NGO RN, CNP; Confirmation: Confirmed ; Classification: Medical ; Code: 785.0 ; Last Updated: 07/14/2011 15:31 CDT ; Life Cycle Status: Active ; Responsible Provider: TO NGO RN, CNP; Vocabulary: ICD-9-CM Diagnoses(Active) Syncope/Near syncope Date: 06/23/2015 ; Diagnosis Type: Reason For Visit ; Confirmation: Complaint of ; Clinical Dx: Syncope/Near syncope ; Classification: Medical ; Clinical Service: Emergency medicine ; Code: PNED ; Probability: 0 ; Diagnosis Code: [id number] Vomiting Date: 06/23/2015 ; Diagnosis Type: Reason For Visit ; Confirmation: Complaint of ; ClinicalDx: Vomiting ; Classification: Medical ; Clinical Service: Emergency medicine ; Code: PNED ; Probability: 0 ; Diagnosis Code: [id number] Weakness or fatigue Date: 06/23/2015 ; Diagnosis Type: Reason For Visit ; Confirmation: Complaint of; Clinical Dx: Weakness or fatigue ; Classification: Medical ; Clinical Service: Emergency medicine ; Code: PNED ; Probability: 0 ; Diagnosis Code: [id number] Triage Chief Complaint Description : pt c/o diarrhea. hyperventilating. reports numbness/tingling to fingers/toes. reports passing out repeatedly this afternoon. c/o lower back pain- 12/03 Information Given By : Patient Present in Room During Exam/Procedure : Spouse Mode of Arrival ED : Private vehicle Track : Medical Languages : [place] Vital Signs Assessed : Yes GCS Assessed : Yes Treatments Prior to Arrival : None Is Patient Female and 13-50 no hysterectomy : No BRITTANY MCKEON RN - 06/23/2015 17:07 GRADUATE TEACHING ASSISTANT Vital Signs Temperature Core : 37.6 DegC(Converted to: 99.7 DegF) Apical Heart Rate : 140 /min (HI) Respiratory Rate : 40 /min (>HHI) Systolic Blood Pressure : 108 mmHg Diastolic Blood Pressure : 76 mmHg NIBP Mean : 87 mmHg SpO2 : 98 % Oxygen Therapy : Room air Actual Weight : 57.9 kg Actual Weight Conversion to Pounds : 127.38 lb BRITTANY MCKEON RN - 06/23/2015 17:07 GRADUATE TEACHING ASSISTANT [place] Coma Eye Opening Response Irene : Spontaneously Best Verbal Response [place] : Oriented Best Motor Response [place] : Obeys simple commands Irene Coma Score : 15 BRITTANY MCKEON RN - 06/23/2015 17:07 GRADUATE TEACHING ASSISTANT Pain Assessment Pain Symptoms : Yes BRITTANY MCKEON RN - 06/23/2015 17:07 GRADUATE TEACHING ASSISTANT Pain Scale Pain Scale Verbal 0-10 : Open BRITTANY MCKEON RN - 06/23/2015 17:07 GRADUATE TEACHING ASSISTANT Pain Pain Assessment Grid Pain 1 Location : Lower back Laterality : Bilateral Intensity : 8 BRITTANY MCKEON RN - 06/23/2015 17:07 GRADUATE TEACHING ASSISTANT ED Physician Notification Time ED Physician Notification Time : 06/23/2015 16:48 GRADUATE TEACHING ASSISTANT BRITTANY MCKEON RN - 06/23/2015 17:07 GRADUATE TEACHING ASSISTANT HORACIO HORACIO Level 1 : No HORACIO Level 2 : Yes BRITTANY MCKEON RN - 06/23/2015 17:07 GRADUATE TEACHING ASSISTANT DCP GENERIC CODE Tracking Acuity : 2 -Emergent Tracking Group : [facility] ED/ BRITTANY MCKEON RN - 06/23/2015 17:07 GRADUATE TEACHING ASSISTANT Respiratory Airway : Patent Respirations : Unlabored, Labored, Tachypnea Respiratory Pattern : Regular Respiratory Detailed Assessment : Yes BRITTANY MCKEON RN - 06/23/2015 17:07 GRADUATE TEACHING ASSISTANT Resp Detailed Respiratory Patient Stated Symptoms : None Distress : Mild Cough : None BRITTANY MCKEON RN - 06/23/2015 17:07 GRADUATE TEACHING ASSISTANT Cardiovascular Heart Rhythm : Regular Skin Color : Normal for ethnicity Skin Description : Dry Skin Temperature : Warm Cardiovascular Detailed Assessment : Yes Monitoring Lead : III Monitoring Lead Tool Repair Technician : Initiated BRITTANY MCKEON RN - 06/23/2015 17:07 GRADUATE TEACHING ASSISTANT CV Detailed CV Patient Stated Symptoms : None Nail Bed Color : Thrall Capillary Refill : Less than 2 seconds Cardiac Rhythm : Sinus tachycardia BRITTANY MCKEON RN - 06/23/2015 17:07 GRADUATE TEACHING ASSISTANT Neurological Last Well Time Known : Not applicable Level of Consciousness : Alert Orientation : Oriented x 3 Characteristics of Speech : Clear BRITTANY MCKEON RN - 06/23/2015 17:07 GRADUATE TEACHING ASSISTANT ED Psychosocial Affect/Behavior : Cooperative, Anxious Domestic Abuse Concerns : None Behavioral Health Screen/Safety Assmt : No Emotional Support Available : Yes ED Psychosocial Deviation : at bedside with pt BRITTANY MCKEON RN - 06/23/2015 17:07 GRADUATE TEACHING ASSISTANT Gastrointestinal Nutrition ED : Adequate BRITTANY MCKEON RN - 06/23/2015 17:07 GRADUATE TEACHING ASSISTANT Musculoskeletal Fall Prevention Education Provided : BRITTANY CHATMAN RN - 06/23/2015 17:07 GRADUATE TEACHING ASSISTANT Social Habits Exposure to Tobacco Smoke : Care provider denies smoking in home, Other: NEVER Smoking Status : Never smoker Tobacco 2A : No Tobacco Use/Currently Using : No Tobacco Use/Last 30 Days : No Tobacco Use/Last 12 months : No BRITTANY MCKEON RN - 06/23/2015 17:07 GRADUATE TEACHING ASSISTANT Alcohol Use Grid Alcohol Use : Yes Type : Wine Frequency : Weekly Amount : 2 glasses BRITTANY MCKEON RN - 06/23/2015 17:07 GRADUATE TEACHING ASSISTANT Recreational Drug Use Grid Drug Use : None BRITTANY MCKEON RN - 06/23/2015 17:07 GRADUATE TEACHING ASSISTANT Peripheral IV Peripheral IV Assess/Intervention Grid Peripheral IV #1 IV Activity : Start, Saline lock Number of Attempts : 1 Date of Insertion : 06/23/2015 GRADUATE TEACHING ASSISTANT IV Site : Antecubital Laterality : Left Catheter Size : 18 Catheter Type : Protective Site Condition : No complications Drainage Description : None BRITTANY MCKEON RN - 06/23/2015 17:07 GRADUATE TEACHING ASSISTANT Source: [facility] First Opinion Document Id: [id number] GRADUATE TEACHING ASSISTANT!111 UATE TEACHING ASSISTANT documented in this encounter Miscellaneous Notes Miscellaneous - Brittany Mckeon R.N. - 06/23/2015 8:44 PM CST Valuables/Belongings Valuables/Belongings Entered On: 06/23/2015 21:13 GRADUATE TEACHING ASSISTANT Performed On: 06/23/2015 20:44 GRADUATE TEACHING ASSISTANT by BRITTANY MCKEON RN Valuables/Belongings Valuables/Belongings Grid Valuables with Patient Clothes, Patient Valuables : Coat, Pants, Shirt, Shoes, Undergarments BRITTANY MCKEON RN - 06/23/2015 21:13 GRADUATE TEACHING ASSISTANT Belongings Sent Home With : patient Home Medication Disposition : None brought in with patient BRITTANY MCKEON RN - 06/23/2015 21:13 GRADUATE TEACHING ASSISTANT Source: [facility] First Opinion Document Id: [id number] GRADUATE TEACHING ASSISTANT!7 UATE TEACHING ASSISTANT Miscellaneous - Conversion, Historical Provider Ser - 06/23/2015 8:44 PM GRADUATE TEACHING ASSISTANT Coding Summary-Paper Based CODING DATE: 07/03/2015 FINAL [facility] STATUS: * Discharged to Home or Self Care PAYOR: Commercial Insurance ADMIT DX: R11.10 Vomiting, unspecified REASON FOR VISIT DX: R11.10 Vomiting, unspecified FINAL DX: PRINCIPAL: K52.9 Noninfective gastroenteritis and colitis, unspecified SECONDARY: E86.0 Dehydration PROCEDURES DOCTOR NAME DATE NOTE: The code number assigned matches the documented diagnosis and / or procedure in the patient's chart. However, the narrative phrase printed from the coding software may appear abbreviated, or result in slightly different terminology. Coded By: BRADEN MAK Date Saved: 07/03/2015 10:53 am Source: [facility] First Opinion Document Id: [id number] Miscellaneous - Brittany Mckeon RCinthiaN. - 06/23/2015 8:39 PM CST Communication Note Communication Note Entered On: 06/23/2015 20:46 GRADUATE TEACHING ASSISTANT Performed On: 06/23/2015 20:39 GRADUATE TEACHING ASSISTANT by BRITTANY MCKEON RN Communication Assessment Communication Note : Dr. Navas in to see pt BRITTANY MCKEON RN - 06/23/2015 20:45 GRADUATE TEACHING ASSISTANT [facility]: [facility] [facility] POWERCHART Document Id: [id number] GRADUATE TEACHING ASSISTANT!3 UATE TEACHING ASSISTANT documented in this encounter Plan of Treatment Not on filedocumented as of this encounter Procedures Procedure Name Priority Date/Time Associated Comments Diagnosis GLUCOSE POCT, B Routine 06/23/2015 8:36 PM Result s for this GRADUATE TEACHING ASSISTANT procedure are i n the results section. TEST, U Routine 06/23/2015 7:40 PM Resu lts for this GRADUATE TEACHING ASSISTANT procedure are i n the results section. URINALYSIS, MIDSTREAM, Routine 06/23/2015 7:40 PM Results for this WITH CULTURE IF GRADUATE TEACHING ASSISTANT procedure ar e in INDICATED the results section. AUTOMATED Routine 06/23/2015 5:00 PM Results f or this DIFFERENTIAL, B GRADUATE TEACHING ASSISTANT procedure ar e in the results section. CBC WITH DIFFERENTIAL, Routine 06/23/2015 5:00 PM Results for this B GRADUATE TEACHING ASSISTANT procedure are i n the results section. COMPREHENSIVE Routine 06/23/2015 5:00 PM Results for this METABOLIC PANEL, S/P GRADUATE TEACHING ASSISTANT procedu re are in the results section. documented in this encounter Results (ABNORMAL) Glucose, POCT (06/23/2015 8:36 PM GRADUATE TEACHING ASSISTANT) P athologist Signature Glucose, POCT, 161 (H) 70 - 139 POWERCHART B MGDL Comment: AnalyzedBy [id number] Joe Meléndez Performed at [facility] [address] ??[id number] Specimen Anatomical Collection Method Collection Time Receive d Time (Source) Location / / Volume Laterality Blood 06/23/2015 8:36 PM 6 8:36 GRADUATE TEACHING ASSISTANT PM GRADUATE TEACHING ASSISTANT Denia Oliveira M.D., M.S. LAB POCT ORDERABLES-MANUAL Performing Organization Address [facility] Phon e Number POWERCHART Test, Qualitative, Urine (06/23/2015 7:40 PM GRADUATE TEACHING ASSISTANT) [facility] [employer] Method Time Signature HXBeta-hCG Negative POWERCHART Qualitative Urine Specimen (Source) Anatomical Collection Method Collection Time Re ceived Time Location / / Volume Laterality Urine 06/23/2015 7:40 PM GRADUATE TEACHING ASSISTANT Igor Whyte, Casey, M.B. LAB URINE ORDERABLES Performing Organization Address [facility] Phon e Number POWERCHART (ABNORMAL) Urinalysis, Midstream, with culture if indicated (06/23/2015 7:40 PM GRADUATE TEACHING ASSISTANT) [facility] [employer] Method Time Signature Clarity Clear Clear POWERCHART HXUr Color Yellow Colorless POWERCHART Specific 1.018 POWERCHART [place], POCT, U pH, POCT, Urine 5.5 <5.0 POWERCHART Protein, Ur, Negative Negative POWERCHART Dip MGDL Glucose >=1000 (A) Negative POWERCHART MGDL Ketones, QL(U) 80 (A) Negative POWERCHART MGDL HXBILIRUBIN Negative Negative POWERCHART HXBLOOD Negative Negative POWERCHART Leukocyte Negative Negative POWERCHART Esterase HXNITRITE Negative Negative POWERCHART Urobilinogen 0.2 0.2 MGDL POWERCHART HXUR WBC. Occ-3 None Seen POWERCHART HPF HXUR RBC. Occ-2 None Seen POWERCHART HPF Squamous Occ-3 (A) None Seen POWERCHART Epithelial HPF Mucus Present (A) None Seen POWERCHART Specimen (Source) Anatomical Collection Method Collection Time Re ceived Time Location / / Volume Laterality Urine, First 06/23/2015 7:40 PM Voided GRADUATE TEACHING ASSISTANT Igor Whyte, Casey, M.B. LAB URINE ORDERABLES Performing Organization Address [place]/[facility] Phon e Number POWERCHART (ABNORMAL) Automated Differential (06/23/2015 5:00 PM GRADUATE TEACHING ASSISTANT) [facility] [employer] Method Time Signature Absolute 13.43 (H) 1.70 - POWERCHART Neutrophils 7.00 109L Lymphocytes 1.07 0.90 - POWERCHART 2.90 X109L Monocytes 0.61 0.30 - POWERCHART 0.90 X109L Eosinophils 0.05 0.05 - POWERCHART 0.50 X109L Absolute 0.01 0.00 - POWERCHART Basophil 0.30 X109L Specimen Anatomical Collection Method Collection Time Receive d Time (Source) Location / / Volume Laterality Blood 06/23/2015 5:00 PM 6 5:00 GRADUATE TEACHING ASSISTANT PM GRADUATE TEACHING ASSISTANT Igor Whyte, Casey, M.B. LAB BLOOD ADD-ON Performing Organization Address [place]/[facility] Code Phon e Number POWERCHART (ABNORMAL) CBC with Differential (06/23/2015 5:00 PM GRADUATE TEACHING ASSISTANT) Analysis Performed At Patho logist Time Signature Leukocytes 15.2 (H) 3.4 - 10.5 POWERCHART X109L Erythrocytes 5.03 3.90 - POWERCHART 5.03 [id number] Hemoglobin 15.9 (H) 12.0 - POWERCHART 15.5 GDL Hematocrit 45.5 (H) 34.9 - POWERCHART 44.5 MCV 90.5 82.0 - POWERCHART 98.0 FL HX RDW 12.9 11.9 - POWERCHART 15.5 Platelet Count 204 150 - 450 POWERCHART X109L Specimen (Source) Anatomical Collection Method Collection Time Re ceived Time Location / / Volume Laterality Blood 06/23/2015 5:00 PM GRADUATE TEACHING ASSISTANT Igor Whyte, Casey, M.B. LAB BLOOD ADD-ON Performing Organization Address [facility] Phon e Number POWERCHART (ABNORMAL) CMP (Comprehensive Metabolic Panel) (06/23/2015 5:00 PM GRADUATE TEACHING ASSISTANT) P athologist Signature Alanine 18 7 - 45 UL POWERCHART Amniotransferas e, LD Albumin, S 4.7 3.5 - 5.2 POWERCHART GDL Comment: Reference values have not been established for patients that are less than 12 months of age. Alkaline Phosphatase, S 56 35 - 105 UL AUDREY RCHART Aspartate Aminotransferase (AST), S 20 8 - 43 POWERCHART Sodium, S 138 135 - 145 MMOLL POWERCHART Comment: Reference values have not been established for patients that are less than 12 months of age. Potassium, S 3.7 3.5 - 5.1 MMOLL POWERCHART Comment: Reference values have not been established for patients that are less than 12 months of age. Chloride, S 100 98 - 107 MMOLL POWERCHART Comment: Reference values have not been established for patients that are less than 12 months of age. CO2 Total 20 (L) 22 - 29 MMOLL POWERCHART Comment: Reference values have not been established for patients that are less than 12 months of age. BUN (Blood Urea Nitrogen), S 16 6 - 24 MGDL POWERCHART Creatinine, S 0.68 0.51 - 0.95 MGDL POWERCHAR T Comment: Reference values have not been establish ed for patients that are <12 months of age. ESTIMATED GFR >60 mL/min/BSA Note: eGFR results will not be calculate d for patients <18 Calcium, Total, S 9.9 8.6 - 10.3 MGDL POWERC RUIZ Anion Gap 18 (H) 7 - 15 MMOLL POWERCHART HXeGFR (MDRD) >60 >=60 [id number] POWERCHART eGFR Black/ >60 >=60 [id number] POWERCHART Bilirubin, Total, S 0.8 <=1.2 MGDL POWERCHAR T Comment: No estab ref range for patients 84 hours to 1 month of age. Total Protein, S 8.1 6.4 - 8.3 GDL POWERCHAR T Comment: Reference values have not been established for patients that are less than 12 months of age. Glucose 114 70 - 139 MGDL POWERCHART Comment: ADA [...] Time Location / / Volume Laterality Blood 06/23/2015 5:00 PM GRADUATE TEACHING ASSISTANT Igor Whyte, Casey, M.B. LAB BLOOD ADD-ON Performing Organization Address City/State/ZIP Code Phon e Number POWERCHART documented in this encounter Visit Diagnoses Not on filedocumented in this encounter Additional Health Concerns Assessment Noted Time PHQ-9 Depression Total Score: 3 11/29/2014 4:18 PM CDT documented as of this encounter
--- OUTSIDE RECORDS SUMMARY | 2021-12-10 15:38 | XMS_ITS | Encounter Summary ---
:1980 Author Organization [facility] Address [address] [place] [address] Care Team Providers Name Role Phone Unavailable Primary Care Provider Unavailable Encounter Details Date Type Department Care Team Description 09/19/2014 Hospital Encounter HX [facility] Dominga Foster M.D. 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 0 07/16/2014 IBUPROFEN ORAL ibuprofen 0 07/16/2014 MULTIVITAMIN WITH MINERALS Take 1 capsule by 0 ORAL mouth daily. documented as of this encounter Progress Notes Dominga Foster M.D. - 09/19/2014 1:32 PM CDT [id number] Jeannine returns for acupuncture treatment. She rated the pain level 8 on a scale of 0 to 10 in the right posterior neck and shoulder, upper chest muscle. Most pain is in the suboccipital region and itgoes up to the right side of the occipital frontal temporal area up to the eye. She feels like a throbbing headache pain in the right frontotemporal area. Denies any new injury incidence. PHYSICAL EXAMINATION GENERAL: The patient is a pleasant 34-year-old female, not in acute distress. MENTAL STATUS: Oriented to person, place. Appropriate mood and affect. Ambulation without assist device. MUSCULOSKELETAL: There is a tight muscle in the right suboccipital region with tenderness in the right suboccipital region, cervical paraspinal muscle very tight. Tenderness in the right upper trapezius muscles with trigger point palpated. There is no skin lesion noted. Her skin is very sensitive and with some pressure will leave red dave immediately. Mild tenderness in the upper thoracic paraspinal muscle. IMPRESSION/REPORT/PLAN Chronic neck and shoulders pain right much greater than the left side with severe muscle spasm tightness in the cervical paraspinal muscles, upper trapezius muscle, myofascial pain. She does have referred pain to the occipital temporoparietal on the right side. Discussed about acupuncture treatment and she has agreed to go ahead with the treatment as planned. Written informed consent was obtained. PROCEDURE Patient was in the prone position. Skin was prepped with ChloraPrep preparation and acupuncture was carried out as follows. 1. [place] treatment using points BL 40, BL 60, KI 3, KI 10, SI 3 bilaterally without electrical stimulation. Duration 20 minutes. 2. Local treatment in the neck and head area using points GB 20, GB 21, (dry needling in the GB 21 point), GV 20, and local scalp needling in the right temporoparietal area in a circular pattern without electrical stimulation, duration 15 minutes. Patient tolerated procedure well. She reported immediately the throbbing pain has lessened in the head area and some loosened up and reduced pain in the neck and shoulder area as well. She will return to [place] for another acupuncture treatment as scheduled. Dominga Foster M.D./suly Electronically Signed By: DOMINGA FOSTER MD On: 09/22/2014 05:26 AM Modified by and Electronically Signed by: DOMINGA FOSTER MD On: 09/22/2014 05:26 AM Source: [facility] MHSDOLBEYNONRADSYS Document Id: [id number] documented in this encounter Miscellaneous Notes Miscellaneous - Dominga Foster M.D. - 09/19/2014 2:39 PM CDT Ambulatory Patient Summary [facility] [address] [facility] [place] [place] [id number] Visit Information Name: JEANNINE OWENS [facility] Number: [id number] Current Date: 09/19/2014 14:39:14 Physicians Attending Provider: DOMINGA FOSTER MD Primary [...] the morning) AM & Noon / (Adderal) HYDROcodone-acetaminophen (HYDROcodone-acetaminophen 5 mg-325 mg oral tablet) 1 Tablet(s), Oral, every 8 hours as needed for Pain No more than 4,000mg acetaminophen/24hrs ibuprofen (ibuprofen) multivitamin with minerals (multivitamin with minerals Multiple Vitamins with Zinc oral capsule) 1 cap, Oral, once a day with magnesium Stop Taking the Following Medications: Medication list as of 09-19-14 14:39 Attention: If you have any medications at [...] Electronically Signed By: DOMINGA FOSTER MD Signed On:19-SEP-2014 14:39:06 Your Allergies & Intolerances Substance Reaction Symptoms [...] Myofascial Cervical Active Pain Thoracic Myofascial Active Your Upcoming Appointments Date Time Location Provider 09/26/2014 14:15 ALCL PMR Dominga Foster MD 10/03/2014 10:15 [facility] PMDominga Flores MD 10/10/2014 14:15 ALCL PMR Kristin MARTINEZ, Dominga Gamez 10/17/2014 13:45 ALCL PMR Dominga Foster MD 10/24/2014 13:30 ALCL PMR Kristin MARTINEZ, Dominga Gamez 10/31/2014 13:15 ALCL PMR Kristin MARTINEZ, Dominga Gamez Attention: Contact your local Clinic if further appointment detail needed. Your Goals/Additional instructions: Source: [facility] POWERCHART Document Id: [id number] Miscellaneous - Dominga Foster M.D. - 09/19/2014 2:39 PM CDT Ambulatory Discharge Medication List [address] [id number] Visit Information Name: JEANNINE OWENS [facility] Number: [id number] Visit Date: 09/19/2014 14:39:13 Attending Provider: DOMINGA FOSTER MD Primary Care [...] the morning) AM & Noon / (Adderal) HYDROcodone-acetaminophen (HYDROcodone-acetaminophen 5 mg-325 mg oral tablet) 1 Tablet(s), Oral, every 8 hours as needed for Pain No more than 4,000mg acetaminophen/24hrs ibuprofen (ibuprofen) multivitamin with minerals (multivitamin with minerals Multiple Vitamins with Zinc oral capsule) 1 cap, Oral, once a day with magnesium Stop Taking the Following Medications: Medication list as of 09-19-14 14:39 Attention: If you have any medications at [...] Electronically Signed By: DOMINGA FOSTER MD Signed On:19-SEP-2014 14:39:06 Additional Information: Source: [facility] POWERCHART Document Id: [id number] Miscellaneous - Shannan Urban LCinthiaPCinthiaN. - 09/19/2014 1:58 PM CDT Adult Cardiology Clinical Nurse Specialist Intake/History Adult Cardiology Clinical Nurse Specialist Intake/History Entered On: 09/19/2014 14:02 CDT Performed On: 09/19/2014 13:58 CDT by SHANNAN URBAN Intake Chief Complaint : patient presents for acupuncture rates discomfort 8/10 neck and head. but also states she feels this procedure is helping Height : 166 cm(Converted to: 5 ft 5 inch(es), 65 inch(es)) SHANNAN URBAN - 09/19/2014 13:58 CDT General Info Information Given By : Patient Preferred Communication Mode : Verbal Languages : Slovak Is Patient Female and 13-50 no hysterectomy : No SHANNAN URBAN - 09/19/2014 13:58 CDT Subjective Pain Symptoms : Yes SHANNAN URBAN 09/19/2014 13:58 CDT Pain Scale Pain Scale Verbal 0-10 : Open SHANNAN URBAN 09/19/2014 13:58 CDT Pain Pain Assessment Grid Pain 1 Pain 2 Location : Neck Head Intensity : 8 8 SHANNAN URBAN 09/19/2014 13:58 CDT SHANNAN URBAN 09/19/2014 13:58 CDT Dependent Habits Tobacco Use/Currently Using : No Exposure to Tobacco Smoke : Care provider denies smoking in home Smoking Status : Unknown if ever smoke SHANNAN URBAN 09/19/2014 13:58 CDT Caffeine Use Grid Caffeine Use : Current Type : Soft drinks Frequency : Weekly Amount : 3 cans per week SHANNAN URBAN - 09/19/2014 13:58 CDT Recreational Drug Use Grid Drug Use : None SHANNAN URBAN 09/19/2014 13:58 CDT ID Screen Drug Resistant Organism : No Travel Within Last 21 Days : No Contact with someone with Ebola : No SHANNAN URBAN 09/19/2014 13:58 CDT Source: [employer] Document Id: [id number] CDT!38 Miscellaneous - Shannan Urban L.P.N. - 09/19/2014 1:58 PM CDT Health Assessment Health Assessment Entered On: 09/19/2014 14:03 CDT Performed On: 09/19/2014 13:58 CDT by SHANNAN URBAN Health Assessment Complete Health Assessment Complete or Modified : Modified Health Assessment SHANNAN URBAN - 09/19/2014 13:58 CDT Nutrition Nutrition Risk Factors by History Adult : None SHANNAN URBAN - 09/19/2014 13:58 CDT Functional Current Daily Living Assistance : None SHANNAN URBAN - 09/19/2014 13:58 CDT Dependent Habits Tobacco Use/Currently Using : No Exposure to Tobacco Smoke : Care provider denies smoking in home Smoking Status : Unknown if ever smoke SHANNAN URBAN - 09/19/2014 13:58 CDT Caffeine Use Grid Caffeine Use : Current Type : Soft drinks Frequency : Weekly Amount : 3 cans per week SHANNAN URBAN - 09/19/2014 13:58 CDT Recreational Drug Use Grid Drug Use : None SHANNAN URBAN - 09/19/2014 13:58 CDT Psychosocial Domestic Abuse Concerns : None Behavioral Health Screen/Safety Assmt : No Adventism Preference : SHANNAN Becker - 09/19/2014 13:58 CDT Advance Directive Advanced Directives : No Advance Directive Additional Information : No SHANNAN URBAN - 09/19/2014 13:58 CDT Educ Needs Learning Style Preference Adult Grid Patient : Verbal explanation Family : Verbal explanation SHANNAN URBAN - 09/19/2014 13:58 CDT Source: [employer] Document Id: [id number] CDT!31 documented in this encounter Plan of Treatment Not on filedocumented as of this encounter Visit Diagnoses Not on filedocumented in this encounter Additional Health Concerns Assessment Noted Time PHQ-9 Depression Total Score: 2 05/04/2014 8:13 AM 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
--- OUTSIDE RECORDS SUMMARY | 2021-12-10 15:38 | XMS_ITS | Encounter Summary ---
:1980 Author Organization [facility] Address [address] [place] [address] Care Team Providers Name Role Phone Unavailable Primary Care Provider Unavailable Encounter Details Date Type Department Care Team Description 05/07/2014 Hospital Encounter HX [facility] MRI Dominga Foster M.D. 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 documented as of this encounter Plan of Treatment Not on filedocumented as of this encounter Procedures Procedure Name Priority Date/Time Associated Diagnosis Comme nts MR CERVICAL SPINE Routine 05/07/2014 12:30 PM Res ults for this WITHOUT IV CONTRAST [employer] procedur e are in the results section. documented in this encounter Results MR Cervical Spine without IV Contrast (05/07/2014 12:30 PM LABOR[employer]) Anatomical Region Laterality Modality Spine, Cervical Spine N/A Magnetic Resonance Specimen (Source) Anatomical Collection Method Collection Time Re ceived Time Location / / Volume Laterality 05/07/2014 12:30 PM [employer] Impressions 05/07/2014 3:47 PM [employer] 1. ??Straightening of the curve 2. No disc herniation demonstrated Addendum: In the body of C7 right of mid line focal region of increased signal seen particularly on th e T2 examination diminishing slightly with the fat saturation in a pa ttern most consistent with a hemangioma. Impression: 3. C7 hemangioma Narrative 05/07/2014 3:47 PM [employer] EXAM: MR Cervical Spine w/o contrast INDICATION: right posterior neck and per iscapular pain and radicular pain to right upper limb, r/o HNP COMPARISON: None. FINDINGS: MRI the cervical spine was done in sagit sebas and axial projection utilizing conventional protocols. Height and shape of vertebral bodies are maintained. Marrow signal is normal. Intervertebral discs have normal height, shape in position. N o disc herniations are demonstrated. Craniocervical junction is normal. Spinal cord is of normal course caliber and signal intensi ty. Posterior elements are intact. Mild straightening of the curve which may suggest muscle spasm Procedure Note Alyssa, Yo Jesus M.D. / Provider, Jones ann M.D. - 09/02/2016 EXAM: MR Cervical Spine w/o contrast INDICATION: right posterior neck and per iscapular pain and radicular pain to right upper limb, r/o HNP COMPARISON: None. FINDINGS: MRI the cervical spine was done in sagit sebas and axial projection utilizing conventional protocols. Height and shape of vertebral bodies are maintained. Marrow signal is normal. Intervertebral discs have normal height, shape in position. N o disc herniations are demonstrated. Craniocervical junction is normal. Spinal cord is of normal course caliber and signal intensi ty. Posterior elements are intact. Mild straightening of the curve which may suggest muscle spasm IMPRESSION: 1. Straightening of the curve 2. No disc herniation demonstrated Addendum: In the body of C7 right of mid line focal region of increased signal seen particularly on th e T2 examination diminishing slightly with the fat saturation in a pa ttern most consistent with a hemangioma. Impression: 3. C7 hemangioma Lexi Molina.TCinthia(R)(CT), R.TCinthia(R) IMG MRI PROCEDUR ES documented in this encounter Visit Diagnoses Not on filedocumented in this encounter Additional Health Concerns Assessment Noted Time PHQ-9 Depression Total Score: 2 05/04/2014 8:13 AM LAB[employer]ER [employer] documented as of this encounter
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
--- OUTSIDE RECORDS SUMMARY | 2021-12-10 15:38 | XMS_ITS | Encounter Summary ---
:1980 Author Organization [facility] Address [address] [place] [address] Care Team Providers Name Role Phone Unavailable Primary Care Provider Unavailable Encounter Details Date Type Department Care Team Description 07/26/2014 Hospital Encounter HX [facility] Lesley Rodriguez i, M.D. [address] [place] 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 0 07/16/2014 IBUPROFEN ORAL ibuprofen 0 07/16/2014 MULTIVITAMIN WITH MINERALS Take 1 capsule by 0 ORAL mouth daily. documented as of this encounter Progress Notes Dio Dickson M.D. - 07/26/2014 3:36 PM CDT [id number] CHIEF COMPLAINT/REASON FOR VISIT Presenting for postop check. HISTORY OF PRESENT ILLNESS Ms. Galdamez is a 34-year-old lady who presents for the above reason. She is status post laparoscopic hysterectomy with uterosacral ligament suspension, cystoscopy and bilateral salpingectomy. Patient's postop course was complicated by acute postop fever that seems to have resolved the 2nd day. Patient was then discharged home. She did well; however, she was then re-evaluated because of persistent fever at home. On the day of evaluation, the patient did not have a temperature. She had an evaluation which was negative. This included CBC, CMP and urine evaluation. Patient then was instructed to follow up in case of fever, chills. She did not report any fever. Today, she presents and reports that she has continued to have a fever at night. She reports that the temperature reaches up to 101. Yesterday it was 100.8 and the day before was 100.5. Patient pains have been gradually improving. She has been improving. She has not used narcotic medicines over the last 3 days. She has been using Tylenol andMotrin and this seems to be controlling her pain well. Denies any urinary symptoms. Denies any discharge or bleeding. Denies any bowel symptoms. Tolerating by mouth intake well and overall is active and feels well. PHYSICAL EXAMINATION GENERAL: Appears in no acute distress. VITAL SIGNS: Temperature 37.5, blood pressure 124/68, pulse in the 80s, respirations 16. ABDOMEN: Soft, nontender. No guarding. No rebound. Incisions have healed well. PELVIC: External genitalia within normal limits. Bartholin's and Panacea's are normal. Speculum inserted. The vaginal apex was identified, appeared to be normal. There is no evidence of any abnormal discharge. No adhesions, no erythema, no signs of infection. Bimanual exam reveals an intact apex, soft, m obile, appropriately tender. IMPRESSION/REPORT/PLAN Patient was reassured about the findings on the exam. However, given her persistent fever, we decided to proceed with a CT scan evaluation of the pelvis to exclude pelvic vein thrombosis, ureteral injury, deep pelvic abscess. All her questions in this regard were answered. PLAN: 1. Check results of CT scan. 2. Further management accordingly. iDo Dickson M.D./suly Electronically Signed By: DIO DICKSON MD On: 08/24/2014 09:50 AM Source: [facility] MHSDOLBEYNONRADSYS Document Id: [id number] documented in this encounter Procedure Notes Debby Marcelino R.T.(Jesse) - 07/26/2014 4:39 PM CDT Peripheral IV Peripheral IV Entered On: 07/26/2014 16:40 CDT Performed On: 07/26/2014 16:39 CDT by DEBBY MARCELINO Peripheral IV Peripheral IV Assess/Intervention Grid Peripheral IV #1 IV Activity : Discontinue Number of Attempts : 1 Date of Insertion : 07/26/2014 CDT IV Site : Antecubital Laterality : Right Catheter Size : 20 Catheter Type : Protective Site Condition : No complications DEBBY MARCELINO - 07/26/2014 16:38 CDT Source: [employer] Document Id: [id number] CDT!12 Debby Marcelino R.T.(Jesse) - 07/26/2014 4:20 PM CDT Peripheral IV Peripheral IV Entered On: 07/26/2014 16:38 CDT Performed On: 07/26/2014 16:20 CDT by DEBBY MARCELINO Peripheral IV Peripheral IV Assess/Intervention Grid Peripheral IV #1 IV Activity : Start Number of Attempts : 1 Date of Insertion : 07/26/2014 CDT IV Site : Antecubital Laterality : Right Catheter Size : 20 Catheter Type : Protective Site Condition : No complications DEBBY MARCELINO - 07/26/2014 16:37 CDT Source: [employer] Document Id: [id number] CDT!12 documented in this encounter Miscellaneous Notes Miscellaneous - Dio Dickson M.D. - 07/27/2014 8:56 AM CDT Results Notification Document Contains Addenda Addendum by KAYLYN GOULD CMA on 27 July 2014 14:50:07 CDT Patient notified and verbalizes understanding and will call next week. From: DIO DICKSON MD To: PEGGY Dickson Nurse; Sent: 07/27/2014 08:56:31 CDT Show up: 07/27/2014 08:56:00 CDT Subject: Results Notification plz let Denice know that her ct scan did not show any problems. let her monitor her temp and giveus an update on how things are going next week. Results: Date Result Type Result Name 07/26/2014 17:[address] Abdomen/Pelvis w/ contrast Source: [facility] POWERCHART Document Id: [id number] Electronically signed by Conversion, [facility] Commercial Installer [id number] at 09/20/2016 3:04 PM CDT Miscellaneous - Dio Dickson M.D. - 07/26/2014 4:36 PM CDT Ambulatory Patient Summary [address] [id number] Visit Information Name: ANDREW OWENSHUGH GAYTANN [facility] Number: [id number] Current Date: 07/26/2014 16:36:47 Physicians Attending Provider: DIO DICKSON MD Primary Care Provider: YOBANY VANG MD [...] 1 oliver, Topical, two times a day docusate (Colace 100 mg oral capsule) 1 cap, Oral, two times a day ibuprofen (ibuprofen) multivitamin with minerals (multivitamin with minerals Multiple Vitamins with Zinc oral capsule) 1 cap, Oral, once a day with magnesium Stop Taking the Following Medications: Medication list as of 07-26-14 16:36 Attention: If you have any medications at [...] Symptoms Category Comments Toradol IV/IM pruritis Drug Your Problem List Problem Status Onset [...] Your Upcoming Appointments Date Time Location Provider 08/10/2014 13:45 AL[facility] PMDominga Flores MD 08/21/2014 12:45 [facility] PMDominga Flores MD 08/28/2014 13:00 ALCL Dominga Estrada MD 09/04/2014 14:00 [facility]CL PMR Kristin MARTINEZ, Dominga Gamez Attention: Contact your local Clinic if further appointment detail needed. Your Goals/Additional instructions: Source: [facility] POWERCHART Document Id: [id number] Miscellaneous - Dio Dickson M.D. - 07/26/2014 4:36 PM CDT Ambulatory Discharge Medication List [address] [id number] Visit Information Name: DENICE OWENS [facility] Number: [id number] Visit Date: 07/26/2014 16:36:46 Attending Provider: DIO DICKSON MD Primary Care Provider: YOBANY VANG MD [...] 1 oliver, Topical, two times a day docusate (Colace 100 mg oral capsule) 1 cap, Oral, two times a day ibuprofen (ibuprofen) multivitamin with minerals (multivitamin with minerals Multiple Vitamins with Zinc oral capsule) 1 cap, Oral, once a day with magnesium Stop Taking the Following Medications: Medication list as of 07-26-14 16:36 Attention: If you have any medications at [...] Signed By: Signed On: Additional Information: Source: [facility] POWERCHART Document Id: [id number] Miscellaneous - Kaylyn Gould, C.M.A. 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 Assistant Attorney General Intake/History Entered On: 07/26/2014 15:42 CDT Performed On: 07/26/2014 15:41 CDT by KAYLYN GOULD LANGUAGE INTERPRETER Intake Chief Complaint : 2 wk post op Temperature Core : 37.5 DegC(Converted to: 99.5 DegF) Systolic Blood Pressure : 124 mmHg Diastolic Blood Pressure : 68 mmHg NIBP Mean : 87 mmHg BP Location : Left upper extremity Blood Pressure Cuff Size : Regular Height : 166 cm(Converted to: 5 ft 5 inch(es), 65 inch(es)) KAYLYN GOULD [facility] - 07/26/2014 15:41 CDT General Info Information Given By : Patient Languages : Romanian Is Patient Female and 13-50 no hysterectomy : No KAYLYN GOULD [facility] - 07/26/2014 15:41 CDT Subjective Pain Symptoms : Yes KAYLYN GOULD [facility] - 07/26/2014 15:41 CDT Pain Scale Pain Scale Verbal 0-10 : Open KAYLYN GOULD [facility] - 07/26/2014 15:41 CDT Pain Pain Assessment Grid Pain 1 Location : Other: incisional pain on right side Intensity : 5 KAYLYN GOULD [facility] - 07/26/2014 15:41 CDT Dependent Habits Tobacco Use/Currently Using : No Exposure to Tobacco Smoke : Care provider denies smoking in home Smoking Status : Never smoker KAYLYN GOULD [facility] - 07/26/2014 15:41 CDT Tobacco Use Grid Last Use : never KAYLYN GOULD [facility] - 07/26/2014 15:41 CDT Caffeine Use Grid Caffeine Use : Current Type : Soft drinks Frequency : Weekly Amount : 3 cans per week KAYLYN GOULD [facility] - 07/26/2014 15:41 CDT Recreational Drug Use Grid Drug Use : None KAYLYN GOULD [facility] - 07/26/2014 15:41 CDT ID Screen Drug Resistant Organism : No Travel Within Last 21 Days : No Contact with someone with Ebola : No KAYLYN GOULD [facility] - 07/26/2014 15:41 CDT Source: [facility] POWERCHART Document Id: [id number] CDT!43 Miscellaneous - Carol Ann Gates S, R.N. - 07/16/2014 12:51 PM CDT Addendum by STEPHAN RAJAN RN on 16 July 2014 13:08:19 CDT Pt notified and transferred to registration to book appt. Addendum by DIO DICKSON MD on 16 July 2014 13:00:08 CDT From: DIO DICKSON MD To: PEGGY Obstetrics/Gynecology Nurse Line; Sent: 07/16/2014 13:00:08 CDT Subject: RE: let her come in for evaluation From: CAROL ANN GATES RN ([facility] Nurse [facility]) To: DIO DICKSON MD; Sent: 07/16/2014 12:51:12 CDT Patient called stating sh had her Hysterectomy last week and was discharged 07/13. she was told to call if fever/ She had temp of 101 last evening and today at 101.3 with takine her Tylenol and Ibuprofen. Medication helps pain but she feels really blah and did have feve in Hospital as well. Please advise. followup. Patient would use [facility] and may be reached at [phone] Source: [facility] POWERCHART Document Id: [id number] Electronically signed by Conversion, [facility] Commercial Installer [id number] at 09/20/2016 3:04 PM CDT documented in this encounter Plan of Treatment Not on filedocumented as of this encounter Procedures Procedure Name Priority Date/Time Associated Diagnosis Comme nts CT ABDOMEN PELVIS Routine 07/26/2014 4:28 PM Resu lts for this WITH IV CONTRAST CDT procedure a re in the results section. documented in this encounter Results CT Abdomen Pelvis with IV Contrast (07/26/2014 4:28 PM CDT) Anatomical Region Laterality Modality Abdomen, Pelvis N/A Computed Tomography Specimen (Source) Anatomical Collection Method Collection Time Re ceived Time Location / / Volume Laterality 07/26/2014 4:28 PM CDT Impressions 07/26/2014 5:00 PM CDT 1. ??Status post recent hysterectomy 2. Normal ureters without evidence of ex travasation 3. Trace amount of pelvic fluid as noted above 4. No definitive abscess in the pelvis n oted however multiple loops of nonopacified bowel may obscure a smal l collection as noted above Narrative 07/26/2014 5:00 PM CDT EXAM: CT Abdomen/Pelvis w/ contrast INDICATION: post op pain COMPARISON: August 04, 2011 FINDINGS: CT scan of the abdomen pelvis was done f rom the inferior cardiac border to the symphysis pubis following 80 cc of intravenous Omnipaque and no oral contrast. Heart si ze is normal. Lung bases are free of infiltrate or effusion. Liver, s pleen, pancreas, gallbladder adrenal glands are unremarkable. Kidneys enhance equally. Aorta shows normal course and caliber with no retrop eritoneal lymphadenopathy. Noncontrast in the bowel diminishes cons picuity and made secure a subtle abnormality. Bladder outlines nor francisca. Uterus is absent consist with a recent hysterectomy. Appe ars be a very small amount of free fluid in the left pelvis. Following a delay ureters are identified well opacified extending to t he bladder with no extraneous leakage. Small amount of contrast is see n in the bladder. Small bowel shows a normal course and caliber withou t evidence of obstruction with multiple loops in the pelvis. These loops of fluid-filled the possible of a subtle small extraluminal fluid collection being obscured cannot be totally dismissed. Co keren shows a normal course and caliber. Some retained fecal material in the colon. Bones are unremarkable. Procedure Note Yo Shah M.D. / Provider, Jones ann M.D. - 09/02/2016 EXAM: CT Abdomen/Pelvis w/ contrast INDICATION: post op pain COMPARISON: August 04, 2011 FINDINGS: CT scan of the abdomen pelvis was done f rom the inferior cardiac border to the symphysis pubis following 80 cc of intravenous Omnipaque and no oral contrast. Heart si ze is normal. Lung bases are free of infiltrate or effusion. Liver, s pleen, pancreas, gallbladder adrenal glands are unremarkable. Kidneys enhance equally. Aorta shows normal course and caliber with no retrop eritoneal lymphadenopathy. Noncontrast in the bowel diminishes cons picuity and made secure a subtle abnormality. Bladder outlines nor francisca. Uterus is absent consist with a recent hysterectomy. Appe ars be a very small amount of free fluid in the left pelvis. Following a delay ureters are identified well opacified extending to t he bladder with no extraneous leakage. Small amount of contrast is see n in the bladder. Small bowel shows a normal course and caliber withou t evidence of obstruction with multiple loops in the pelvis. These loops of fluid-filled the possible of a subtle small extraluminal fluid collection being obscured cannot be totally dismissed. Co keren shows a normal course and caliber. Some retained fecal material in the colon. Bones are unremarkable. IMPRESSION: 1. Status post recent hysterectomy 2. Normal ureters without evidence of ex travasation 3. Trace amount of pelvic fluid as noted above 4. 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
--- OUTSIDE RECORDS SUMMARY | 2021-12-10 15:38 | XMS_ITS | Encounter Summary ---
:1980 Author Organization [facility] Address [address] [place] [address] Care Team Providers Name Role Phone Unavailable Primary Care Provider Unavailable Encounter Details Date Type Department Care Team Description 09/26/2014 Hospital Encounter HX [facility] Dominga Foster M.D. 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 0 07/16/2014 IBUPROFEN ORAL ibuprofen 0 07/16/2014 MULTIVITAMIN WITH MINERALS Take 1 capsule by 0 ORAL mouth daily. documented as of this encounter Progress Notes Dominga Foster M.D. - 09/26/2014 2:03 PM CDT [id number] Denice returns for acupuncture treatment for her chronic neck and shoulder headache pain. She feltbetter improvement for 3 days after the acupuncture treatment. She occasionally takes Vicodin a couple times of week. It provides good relief of pain for a day if she takes it. This morning she took it2 hours before she came in today. She rated the pain level today 2 on a scale 0 to 10. Daily she gets headache pain in the right temporoparietal area. She gets increased pain after sitting in the classif she goes to school, by sitting or long driving. PHYSICAL EXAMINATION GENERAL: Patient is a 34-year-old female, not in acute distress. MENTAL STATUS: Oriented to person, place. Appropriate mood and affect. MUSCULOSKELETAL: Ambulation without assist device. Her gait is stable. She still has tightness in the right upper chest muscle, tenderness to the suboccipital region, but overall muscle spasm in the cervical paraspinal area is much relieved. There is no significant tenderness in the upper thoracic interscapular area. SKIN: There is no skin lesion. IMPRESSION/REPORT/PLAN Chronic right posterior neck and shoulder pain, mostly in the suboccipital region, headache pain going into the occiput temporoparietal area on the right side. She feels somewhat improvement of her headache and neck pain with acupuncture treatment. She wishes to go ahead with acupuncture treatment as [place]en [place]. Written informed consent was obtained. PROCEDURE Patient was in the prone position. Skin was prepped with the ChloraPrep preparation. Acupuncture wascarried out as follows: 1. Principal [place] treatment using points, BL 40, BL 60, KI 3, KI 10, SI 3 bilaterally, without electrical stimulation, duration 20 minutes. 2. Right ear acupuncture treatment using points, Mandujano Men, Point Zero, tranquilizer, master cerebral, occiput headache point, shoulder point, without electrical stimulation. At the same time local point in the right scalp temporoparietal area in a circular pattern, and GV 20, right GB 20 and GB 21 (dry needling was done in the upper trapezius muscle belly, which caused significant muscle twitching response) without electrical stimulation, duration 15 minutes. 3. Patient tolerated procedure well. She reported significant improvement of her muscle tightness inthe neck area after the acupuncture treatment. Post acupuncture care discussed with her and she willreturn to me in 1 week for another acupuncture treatment. 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 Entered On: 09/26/2014 14:18 CDT Performed On: 09/26/2014 14:17 CDT by SHANNAN URBAN Intake Chief Complaint : patient presents for acupuncture Height : 166 cm(Converted to: 5 ft 5 inch(es), 65 inch(es)) SHANNAN URBAN - 09/26/2014 14:17 CDT General Info Information Given By : Patient Preferred Communication Mode : Verbal Languages : Turkish Is Patient Female and 13-50 no hysterectomy : No SHANNAN URBAN - 09/26/2014 14:17 CDT Subjective Pain Symptoms : Yes SHANNAN URBAN - 09/26/2014 14:17 CDT Pain Scale Pain Scale Verbal 0-10 : Open SHANNAN URBAN - 09/26/2014 14:17 CDT Pain Pain Assessment Grid Pain 1 Location : Neck Intensity : 2 SHANNAN URBAN - 09/26/2014 14:17 CDT Dependent Habits Tobacco Use/Currently Using : No Exposure to Tobacco Smoke : Care provider denies smoking in home Smoking Status : Unknown if ever smoke SHANNAN URBAN - 09/26/2014 14:17 CDT Caffeine Use Grid Caffeine Use : Current Type : Soft drinks Frequency : Weekly Amount : 3 cans per week SHANNAN URBAN - 09/26/2014 14:17 CDT Recreational Drug Use Grid Drug Use : None SHANNAN URBAN - 09/26/2014 14:17 CDT ID Screen Drug Resistant Organism : No Travel Within Last 21 Days : No Contact with someone with Ebola : No SHANNAN URBAN - 09/26/2014 14:17 CDT Source: [facility] POWERCHART Document Id: [id number] CDT!35 Miscellaneous - Shannan Urban LCinthiaPCinthiaN. - 09/26/2014 2:17 PM CDT Health Assessment Health Assessment Entered On: 09/26/2014 14:19 CDT Performed On: 09/26/2014 14:17 CDT by SHANNAN URBAN Health Assessment Complete Health Assessment Complete or Modified : Modified Health Assessment SHANNAN URBAN - 09/26/2014 14:17 CDT Nutrition Nutrition Risk Factors by History Adult : None SHANNAN URBAN - 09/26/2014 14:17 CDT Functional Current Daily Living Assistance : None SHANNAN URBAN - 09/26/2014 14:17 CDT Dependent Habits Tobacco Use/Currently Using : No Exposure to Tobacco Smoke : Care provider denies smoking in home Smoking Status : Unknown if ever smoke SHANNAN URBAN - 09/26/2014 14:17 CDT Caffeine Use Grid Caffeine Use : Current Type : Soft drinks Frequency : Weekly Amount : 3 cans per week SHANNAN URBAN - 09/26/2014 14:17 CDT Recreational Drug Use Grid Drug Use : None SHANNAN URBAN - 09/26/2014 14:17 CDT Psychosocial Domestic Abuse Concerns : None Behavioral Health Screen/Safety Assmt : No Religion Preference : SHANNAN Becker - 09/26/2014 14:17 CDT Advance Directive Advanced Directives : No Advance Directive Additional Information : No SHANNAN URBAN - 09/26/2014 14:17 CDT Educ Needs Learning Style Preference Adult Grid Patient : Verbal explanation Family : Verbal explanation SHANNAN URBAN - 09/26/2014 14:17 CDT Source: [facility] POWERCHART Document Id: [id number] CDT!31 documented in this encounter Plan of Treatment Not on filedocumented as of this encounter Visit Diagnoses Not on filedocumented in this encounter Additional Health Concerns Assessment Noted Time PHQ-9 Depression Total Score: 2 05/04/2014 8:13 AM 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
--- OUTSIDE RECORDS SUMMARY | 2021-12-10 15:38 | XMS_ITS | Encounter Summary ---
:1980 Author Organization [facility] Address [address] [place] [address] Care Team Providers Name Role Phone Unavailable Primary Care Provider Unavailable Encounter Details Date Type Department Care Team Description 10/17/2014 Hospital Encounter HX [facility] Dominga Foster M.D. 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 0 07/16/2014 IBUPROFEN ORAL ibuprofen 0 07/16/2014 MULTIVITAMIN WITH MINERALS Take 1 capsule by 0 ORAL mouth daily. documented as of this encounter Progress Notes Dominga Foster M.D. - 10/17/2014 1:39 PM CDT [id number] Jeannine returns for acupuncture treatment for her neck and headache pain. She feels much better. Her pain level is 3 on a scale of 0 to 10. She feels somewhat better in her headache pain, in the temporal area. No upper trapezius or thoracic paraspinal pain. PHYSICAL EXAMINATION GENERAL: The patient is a pleasant 34-year-old female, not in acute distress. MENTAL STATUS: Oriented to person, place. Appropriate mood and affect. MUSCULOSKELETAL: Ambulation without assist device. The upper trapezius dry needling did not recreateany muscle twitch response. Still tight muscles in the right upper cervical paraspinal muscles with tenderness in the suboccipital region but overall cervical paraspinal muscle tightness is much relieved. There is no skin lesion noted. IMPRESSION/REPORT/PLAN 1. Chronic neck and right neck and shoulder pain. 2. Cervicogenic headache pain. She is making significant improvement with acupuncture treatment. Muscle spasm which was very tight in the upper cervical paraspinal and upper chest muscle is much, much improved. She wishes to go ahead with acupuncture treatment. Written informed consent was obtained. PROCEDURE Patient was in the prone position. Skin was prepped with the ChloraPrep preparation. Acupuncture wascarried out as follows: 1. Principal Levels treatment using points, BL 60, KI 3, KI 10, SI 3, HT 7 bilaterally, with electrical stimulation. Duration 10 minutes. 2. Local neck treatment using points, GV 15, GV 16, right GB 20, GB 21, BL 10, without electrical stimulation. Duration 15 minutes. At the same time, GV 20, Si Mandujano Diaz (star) treatment with electrical stimulation, in a glynn chain pattern frequency, 15 hertz. Duration 15 minutes. Patient tolerated the procedure well. Dominga Foster M.D./suly Electronically Signed By: DOMINGA FOSTER MD On: 10/18/2014 10:24 PM Modified by and Electronically Signed by: DOMINGA FOSTER MD On: 10/18/2014 10:24 PM Source: [facility] MHSDOLBEYNONRADSYS Document Id: [id number] documented in this encounter Miscellaneous Notes Miscellaneous - Dominga Foster M.D. - 10/17/2014 2:32 PM CDT Ambulatory Patient Summary [address] [id number] Visit Information Name: JEANNINE OWENS [facility] Number: [id number] Current Date: 10/17/2014 14:32:05 Physicians Attending Provider: DOMINGA FOSTER MD Primary [...] the Following Medications: Medication list as of 10-17-14 14:32 Attention: If you have any medications at [...] Electronically Signed By: DOMINGA FOSTER MD Signed On:17-OCT-2014 14:31:59 Your Allergies & Intolerances Substance Reaction Symptoms [...] Your Upcoming Appointments Date Time Location Provider 10/24/2014 13:30 ALCL PMR Dominga Foster MD 10/31/2014 13:15 ALCL PMR Dominga Foster MD Attention: Contact your local Clinic if further appointment detail needed. Your Goals/Additional instructions: Source: [facility] POWERCHART Document Id: [id number] Miscellaneous - Dominga Foster M.D. - 10/17/2014 2:32 PM CDT Ambulatory Discharge Medication List [address] [id number] Visit Information Name: ANDREW OWENSHUGH GAYTANN [facility] Number: [id number] Visit Date: 10/17/2014 14:32:04 Attending Provider: DOMINGA FOSTER MD Primary Care [...] the Following Medications: Medication list as of 10-17-14 14:32 Attention: If you have any medications at [...] Electronically Signed By: DOMINGA FOSTER MD Signed On:17-OCT-2014 14:31:59 Additional Information: Source: [facility] POWERCHART Document Id: [id number] Miscellaneous - Shannan Urban L.PCinthiaNCinthia - 10/17/2014 2:04 PM CDT 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 Operator 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 Operator Intake/History Entered On: 10/17/2014 14:05 CDT Performed On: 10/17/2014 14:04 CDT by SHANNAN URBAN Intake Chief Complaint : presents for acupuncture, rates discomfort 07/03 Height : 166 cm(Converted to: 5 ft 5 inch(es), 65 inch(es)) SHANNAN URBAN - 10/17/2014 14:04 CDT General Info Information Given By : Patient Preferred Communication Mode : Verbal Languages : Tamazight Is Patient Female and 13-50 no hysterectomy : No SHANNAN URBAN - 10/17/2014 14:04 CDT Subjective Pain Symptoms : Yes SHANNAN URBAN - 10/17/2014 14:04 CDT Pain Scale Pain Scale Verbal 0-10 : Open SHANNAN URBAN - 10/17/2014 14:04 CDT Pain Pain Assessment Grid Pain 1 Location : Neck Intensity : 3 SHANNAN URBAN - 10/17/2014 14:04 CDT Dependent Habits Tobacco Use/Currently Using : No Exposure to Tobacco Smoke : Care provider denies smoking in home Smoking Status : Never smoker SHANNAN URBAN - 10/17/2014 14:04 CDT Caffeine Use Grid Caffeine Use : Current Type : Soft drinks Frequency : Weekly Amount : 3 cans per week SHANNAN URBAN - 10/17/2014 14:04 CDT Recreational Drug Use Grid Drug Use : None SHANNAN URBAN - 10/17/2014 14:04 CDT Source: [employer] Document Id: [id number] CDT!31 Miscellaneous - Shannan Urban L.P.N. - 10/17/2014 2:04 PM CDT Health Assessment Health Assessment Entered On: 10/17/2014 14:05 CDT Performed On: 10/17/2014 14:04 CDT by SHANNAN URBAN Health Assessment Complete Health Assessment Complete or Modified : Modified Health Assessment SHANNAN URBAN - 10/17/2014 14:04 CDT Nutrition Nutrition Risk Factors by History Adult : None SHANNAN URBAN - 10/17/2014 14:04 CDT Functional Current Daily Living Assistance : None SHANNAN URBAN - 10/17/2014 14:04 CDT Dependent Habits Tobacco Use/Currently Using : No Exposure to Tobacco Smoke : Care provider denies smoking in home Smoking Status : Never smoker SHANNAN URBAN - 10/17/2014 14:04 CDT Caffeine Use Grid Caffeine Use : Current Type : Soft drinks Frequency : Weekly Amount : 3 cans per week SHANNAN URBAN - 10/17/2014 14:04 CDT Recreational Drug Use Grid Drug Use : None SHANNAN URBAN - 10/17/2014 14:04 CDT Psychosocial Domestic Abuse Concerns : None Behavioral Health Screen/Safety Assmt : No Mosque Preference : SHANNAN Becker - 10/17/2014 14:04 CDT Advance Directive Advanced Directives : No Advance Directive Additional Information : No SHANNAN URBAN - 10/17/2014 14:04 CDT Educ Needs Learning Style Preference Adult Grid Patient : Verbal explanation Family : Verbal explanation SHANNAN URBAN - 10/17/2014 14:04 CDT Source: [employer] Document Id: [id number] CDT!31 documented in this encounter Plan of Treatment Not on filedocumented as of this encounter Visit Diagnoses Not on filedocumented in this encounter Additional Health Concerns Assessment Noted Time PHQ-9 Depression Total Score: 2 05/04/2014 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
--- OUTSIDE RECORDS SUMMARY | 2021-12-10 15:38 | XMS_ITS | Encounter Summary ---
:1980 Author Organization [facility] Address [address] [place] [address] Care Team Providers Name Role Phone Unavailable Primary Care Provider Unavailable Encounter Details Date Type Department Care Team Description 09/12/2014 Hospital Encounter HX [facility] Lesley Rodriguez i, M.D. 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 0 07/16/2014 IBUPROFEN ORAL ibuprofen 0 07/16/2014 MULTIVITAMIN WITH MINERALS Take 1 capsule by 0 ORAL mouth daily. documented as of this encounter Progress Notes Dio Dickson M.D. - 09/12/2014 3:46 PM CDT [id number] CHIEF COMPLAINT/REASON FOR VISIT Presenting for spotting after hysterectomy. HISTORY OF PRESENT ILLNESS Denice is a 34-year-old lady who had a hysterectomy in June of 2014, presents because she has been spotting consistently. Reports that she changes around a pad per day. A very scant amount of pinkish brownish discharge. She also had some yellowish discharge. She reports that sometimes she would go the whole day without any brownish discharge and then she might have some or wake up in the morning with some when she wipes. She has had intercourse without any problems. SYSTEMS REVIEW Otherwise negative. PHYSICAL EXAMINATION GENERAL APPEARANCE: No acute distress. PELVIC: External genitalia within normal limits. Bartholin's and Tutwiler's are normal. Speculum inserted. The vaginal apex was identified, appeared to be healed well. There is normal discharge with a very light pinkish tinge. There are no signs of infection. There is no granulation tissue noted on the vaginal apex. No raw areas noted. The apex was put on stretch and palpated thoroughly with no defects noted. I did use silver nitrate on the vaginal apex line. Then a bimanual exam was performed confirming that the apex is without any defects. IMPRESSION/REPORT/PLAN The patient was instructed of the findings. I think that this is normal part of the healing. She could be experiencing some continued discharge with the presence of PDS sutures that might require some additional time to heal and resolve completely. I did reassure the patient and informed her to expectthis to gradually resolve. If she continues to have those symptoms in 4 weeks, she is to follow up for re-evaluation. If she has heavier bleeding, she is to follow up earlier. I do not expect any complications based on today's exam. Total time spent with the patient 15 minutes, more than 50% of time was spent in counseling. Dio Dickson M.D./suly Electronically Signed By: DIO DICKSON MD On: 10/12/2014 01:40 PM Source: [facility] MHSDOLBEYNONRADSYS Document Id: [id number] documented in this encounter Miscellaneous Notes Miscellaneous - Dio Dickson M.D. - 09/12/2014 4:29 PM CDT Ambulatory Patient Summary [place] [address] [place] [id number] Visit Information Name: DENICE OWENS [facility] Number: [id number] Current Date: 09/12/2014 16:29:43 Physicians Attending Provider: DIO DICKSON MD Primary [...] the Following Medications: Medication list as of 09-12-14 16:29 Attention: If you have any medications at [...] NOS Active 07/14/2011 ADHD. Active Depression Active 10/19/12 external records Posttraumatic Stress Disorder Active 02/12/12 external records Closed fracture of phalanx of foot Active 01/23/2013 Pain Neck Active Pain Limb Generalized Active Pain Myofascial Cervical Active Pain Thoracic Myofascial Active Your Upcoming Appointments Date Time Location Provider 09/19/2014 13:45 ALCL TWYLA Foster MD, Dominga Gamez 09/26/2014 14:15 ALCL PMJesse Foster MD, Dominga Gamez 10/03/2014 10:15 ALCL WTYLA Foster MD, Dominga Gamez 10/10/2014 14:15 ALCL TWYLA Foster MD, Dominga Gamez 10/17/2014 13:45 ALCL TWYLA Foster MD, Dominga Gamez 10/24/2014 13:30 ALCL TWYLA Foster MD, Dominga Gamez 10/31/2014 13:15 ALCL PMJesse Foster MD, Dominga Gamez Attention: Contact your local Clinic if further appointment detail needed. Your Goals/Additional instructions: [facility] Document Id: [id number] Miscellaneous - Dio Dickson M.D. - 09/12/2014 4:29 PM CDT Ambulatory Discharge Medication List [address] [id number] Visit Information Name: DENICE OWENS [facility] Number: [id number] Visit Date: 09/12/2014 16:29:42 Attending Provider: DIO DICKSON MD Primary Care [...] the Following Medications: Medication list as of 09-12-14 16:29 Attention: If you have any medications at [...] Signed By: Signed On: Additional Information: Source: [facility] IMshopping Document Id: [id number] Andree - Aristeo Joyce R.N. - 09/12/2014 4:22 PM CDT Automatic Clipper And Stripper Documentation Automatic Clipper And Stripper Documentation Entered On: 09/12/2014 16:22 CDT Performed On: 09/12/2014 16:22 CDT by ARISTEO JOYCE LPN Automatic Clipper And Stripper Documentation CD Procedure Performed : pelvic exam CD Automatic Clipper And Stripper Present : Yes CD Automatic Clipper And Stripper Name : aristeo Accompanied By : Alone ARISTEO JOYCE LPN - 09/12/2014 16:22 CDT Source: [facility] [employer] Document Id: [id number] CDT!6 Jennifercellmadeline - Aristeo Joyce R.N. - 09/12/2014 3:53 PM CDT Adult Network Director Intake/History Adult Network Director Intake/History Entered On: 09/12/2014 15:53 CDT Performed On: 09/12/2014 15:53 CDT by ARISTEO JOYCE CARD GAME OPERATOR Intake Chief Complaint : spotting after surgery Temperature Core : 37.4 DegC(Converted to: 99.3 DegF) Height : 166 cm(Converted to: 5 ft 5 inch(es), 65 inch(es)) ARISTEO JOYCE [facility] - 09/12/2014 15:53 CDT General Info Information Given By : Patient Languages : Irish Is Patient Female and 13-50 no hysterectomy : No ARISTEO JOYCE [facility] - 09/12/2014 15:53 CDT Subjective Pain Symptoms : Yes ARISTEO JOYCE [facility] 09/12/2014 15:53 CDT Pain Scale Pain Scale Verbal 0-10 : Open ARISTEO JOYCE [facility] 09/12/2014 15:53 CDT Pain Pain Assessment Grid Pain 1 Location : Suprapubic Intensity : 2 ARISTEO JOYCE [facility] - 09/12/2014 15:53 CDT Dependent Habits Tobacco Use/Currently Using : No Exposure to Tobacco Smoke : Care provider denies smoking in home Smoking Status : Never smoker ARISTEO JOYCE [facility] - 09/12/2014 15:53 CDT Caffeine Use Grid Caffeine Use : Current Type : Soft drinks Frequency : Weekly Amount : 3 cans per week ARISTEO JOYCE [facility] 09/12/2014 15:53 CDT Recreational Drug Use Grid Drug Use : None ARISTEO JOYCE [facility] - 09/12/2014 15:53 CDT ID Screen Drug Resistant Organism : No Travel Within Last 21 Days : No Contact with someone with Ebola : No ARISTEO JOYCE 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
--- OUTSIDE RECORDS SUMMARY | 2021-12-10 15:38 | XMS_ITS | Encounter Summary ---
:1980 Author Organization [facility] Address [address] [place] [address] Care Team Providers Name Role Phone Unavailable Primary Care Provider Unavailable Encounter Details Date Type Department Care Team Description 05/29/2014 Hospital Encounter HX [facility] Lesley Rodriguez i, M.D. [address] [facility] [place] [id number] (Wo rk) Social History Tobacco Use Types Packs/Day Years Used Date Smoking Tobacco: Never Assessed Sex Assigned at Date Recorded Female 04/15/2017 7:38 PM TEAM PRIMARY CARE PHYSICIAN documented as of this encounter Last Filed Vital Signs Vital Sign Reading Time Taken Comments Blood Pressure 110/78 05/29/2014 9:14 AM TEAM PRIMARY CARE PHYSICIAN Pulse - - Temperature - - Respiratory Rate - - Oxygen Saturation - - Inhaled Oxygen Concentration - - Weight 58.5 kg (128 lb 15.5 oz) 05/29/2014 9:14 AM TEAM PRIMARY CARE PHYSICIAN Height 166 cm (5' 5.35) 05/29/2014 9:14 AM TEAM PRIMARY CARE PHYSICIAN Body Mass Index 21.23 05/29/2014 9:14 AM TEAM PRIMARY CARE PHYSICIAN documented in this encounter Medications at Time of Discharge Medication Sig Dispensed Refills Start Date End Date MULTIVITAMIN WITH MINERALS Take 1 capsule by 0 ORAL mouth daily. documented as of this encounter Progress Notes Dio Dickson M.D. - 05/29/2014 8:52 AM CST [id number] CHIEF COMPLAINT/REASON FOR VISIT Presenting to discuss hysterectomy. HISTORY OF PRESENT ILLNESS Ms. Galdamez is a 33-year-old lady, who presents for the above reason. Patient has been experiencingcyclic pelvic pain that recently has exacerbated and became continuous pain. Patient has history of tubal ligation and previous endometrial ablation. 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 This is supported by finding of hypoechogenic material trapped inside the endometrial cavity.Previously, we talked about the management of this issue and we talked about different modalities including hormonal treatment, conservative surgery with hysteroscopy and laparoscopy with bilateral salpingectomy, and we talked about definitive treatment with hysterectomy. Today, she presents and wouldlike to proceed with hysterectomy. We reviewed the operative consent. We discussed indication: 1. Pelvic pain. 2. History suggestive of post tubal ligation syndrome. 3. Stage I uterine prolapse. Procedure: 1. Total laparoscopic hysterectomy. 2. Bilateral salpingectomy. 3. Uterosacral ligament suspension. 4. Cystoscopy. We talked about the procedure, risks including serious intra-abdominal organ injury, need for laparotomy, need for further surgery, risk of infection, risk of blood clots, and risk of , benefits and the patient was instructed that this is the best treatment for post tubal ligation syndrome. The patient, however, was instructed that pain complaints can arise from any organ in the pelvis and so she was instructed to expect 3 possible outcomes, 1. Resolution of the pain. 2. Persistent back pain. 3. Worsening of the pain. So she does understand the results of the procedure as I am not guaranteed and this fact was discussed with her today and on her last evaluation. We talked about alternatives as mentioned above including hormonal suppression including conservative surgery. We discussed the teams involved in her care. We talked about the fact that additional procedure may be necessary based on the findings on exam. We discussed risks related to blood transfusion and alternatives. We talked about sending specimen to pathology. We talked about performing appropriate workup, if we get exposed to blood or body fluids. Patient understands, was given the opportunity to ask questions. All her questions were answered. She did sign the operative consent. We did review the sterilization form. Note that the patient is sterile by bilateral tubal ligation, so the patient understands that hysterectomy is a much higher level sterilization as compared to tubal ligation. She did sign the consent form. PAST MEDICAL/SURGICAL HISTORY PAST MEDICAL HISTORY: Is notable for history of ADHD. Patient is rarely uses Adderall. In her chart,she had a history of palpitation. Patient reports that this has happened to her once in the past, her cardiology evaluation, which was negative and over the last 3 years, has not had any symptoms. Notethat the patient is very active. She runs around an hour every day 5 days a week. She is in the [employer] together with her partner. So her functional status is close to 10 metabolic equivalents. PAST SURGICAL HISTORY: Notable for, Two C sections. Bilateral tubal ligation. Endometrial ablation in 2007. MEDICATIONS [place]. Ibuprofen. IMPRESSION/REPORT/PLAN Patient appears to be optimized for surgical procedure. She will need to follow up a week prior to her procedure date, which is June 14 in order to have an updated preoperative clearance. Note that the patient's Pap smear is up to date. Total time spent with the patient 25 minutes. More than 50% of the time was spent in counseling. Dio Dickson M.D./suly Electronically Signed By: DIO DICKSON MD On: 06/27/2014 09:43 AM Source: [facility] MHSDOLBEYNONRADSYS Document Id: [id number] PRIMARY CARE PHYSICIAN documented in this encounter Miscellaneous Notes Miscellaneous - Dio Dickson M.D. - 05/29/2014 1:13 PM CST Ambulatory Patient Summary [address] [id number] Visit Information Name: DENICE OWENS [facility] Number: [id number] Current Date: 05/29/2014 13:13:13 Physicians Attending Provider: DIO DICKSON MD Primary [...] Take Indications/Special Instructions/Comments/Notes for Patient Medication Changes/Routing azelaic acid topical (azelaic acid 20% topical cream) 1 oliver, Topical, two times a day dextroamphetamine-amphetamine (Adderall XR 10 mg oral capsule, extended release) 1 cap, Oral, once aday (in the morning) HYDROcodone-acetaminophen (HYDROcodone-acetaminophen 5 mg-325 mg oral tablet) 1 Tablet(s), Oral, twotimes a day as needed for Pain No more than 4,000mg acetaminophen/24hrs HYDROcodone-acetaminophen ([place] 5 mg-325 mg oral tablet) 1 to 2 tablets, Oral, every 6 hours as needed for Pain x 7 day(s) No more than 4,000mg acetaminophen/24hrs multivitamin with minerals (multivitamin with minerals Multiple Vitamins with Zinc oral capsule) 1 cap, Oral, once a day with magnesium tiZANidine (tiZANidine 2 mg oral tablet) 1 Tablet(s), Oral, three times a day as needed for muscle spasm, pain Stop Taking the Following Medications: Medication list as of 05-29-14 13:13 Attention: If you have any medications at [...] & Intolerances Substance Reaction Symptoms Category Comments No Known Allergies Drug Your Problem List Problem Status Onset [...] Limb Generalized Active Pain Myofascial Cervical Active Your Upcoming Appointments Date Time Location Provider 06/08/2014 13:35 [facility] Cy MARTINEZ, Dio 06/15/2014 12:45 [facility] Kristin MARTINEZ, Dominga Gamez 06/22/2014 12:45 [facility] Dominga Foster MD 06/29/2014 12:45 [facility] Kristin MARTINEZ, Dominga Gamez 07/06/2014 12:45 [facility] Dominga Foster MD 07/13/2014 12:45 [facility] Kristin MARTINEZ, Dominga Gamez 07/20/2014 12:45 [facility] Kristin MARTINEZ, Dominga Gamez Attention: Contact your local Clinic if further appointment detail needed. Your Goals/Additional instructions: Source: [facility] POWERCHART Document Id: [id number] PRIMARY CARE PHYSICIAN Miscellaneous - Dio Dickson M.D. - 05/29/2014 1:13 PM CST Ambulatory Discharge Medication List [address] [id number] Visit Information Name: DENICE OWENS [facility] Number: [id number] Visit Date: 05/29/2014 13:13:11 Attending Provider: DIO DICKSON MD Primary Care [...] Take Indications/Special Instructions/Comments/Notes for Patient Medication Changes/Routing azelaic acid topical (azelaic acid 20% topical cream) 1 oliver, Topical, two times a day dextroamphetamine-amphetamine (Adderall XR 10 mg oral capsule, extended release) 1 cap, Oral, once aday (in the morning) HYDROcodone-acetaminophen (HYDROcodone-acetaminophen 5 mg-325 mg oral tablet) 1 Tablet(s), Oral, twotimes a day as needed for Pain No more than 4,000mg acetaminophen/24hrs HYDROcodone-acetaminophen ([place] 5 mg-325 mg oral tablet) 1 to 2 tablets, Oral, every 6 hours as needed for Pain x 7 day(s) No more than 4,000mg acetaminophen/24hrs multivitamin with minerals (multivitamin with minerals Multiple Vitamins with Zinc oral capsule) 1 cap, Oral, once a day with magnesium tiZANidine (tiZANidine 2 mg oral tablet) 1 Tablet(s), Oral, three times a day as needed for muscle spasm, pain Stop Taking the Following Medications: Medication list as of 05-29-14 13:13 Attention: If you have any medications at [...] Signed By: Signed On: Additional Information: Source: [facility] POWERCHART Document Id: [id number] PRIMARY CARE PHYSICIAN Andree - Carol Ann Gates RChoco - 05/29/2014 10:21 AM CST Addendum by ARISTEO JOYCE LPN on 29 May 2014 11:11:03 TEAM PRIMARY CARE PHYSICIAN spoke to pt and she would like it rescheduled to july 12, she will come in the week of july 02for recheck and instructions. From: CAROL ANN GATES RN ([place] Obstetrics/Gynecology Nurse Line) To: PEGGY Dickson Nurse; Sent: 05/29/2014 10:21:35 TEAM PRIMARY CARE PHYSICIAN Patient called stating she was just in and scheduled Hysterectomy but found conflict in her scheduleand asked to reschedule her Surgery. She may be reached at [phone] Source: [facility] POWERCHART Document Id: [id number] Electronically signed by Zac [facility] Sub[facility] Abuse Counselor [id number] at 09/20/2016 8:35 PM CDT Andree - Aristeo Joyce R.N. - 05/29/2014 9:14 AM CST Adult Technical Professional Intake/History Adult Technical Professional Intake/History Entered On: 05/29/2014 9:15 TEAM PRIMARY CARE PHYSICIAN Performed On: 05/29/2014 9:14 TEAM PRIMARY CARE PHYSICIAN by ARISTEO JOYCE FLATCAR WHACKER Intake Systolic Blood Pressure : 110 mmHg Diastolic Blood Pressure : 78 mmHg NIBP Mean : 89 mmHg BP Location : Left upper extremity Blood Pressure Cuff Size : Regular Height : 166 cm(Converted to: 5 ft 5 inch(es), 65 inch(es)) Actual Weight : 58.5 kg(Converted to: 129 lb 0 oz) Weight Source : Standing scale Dosing Weight Clinic : 58.5 kg Clinic BSA : 1.64 Body Mass Index : 21.23 kg/m2 ARISTEO JOYCE [facility] 05/29/2014 9:14 TEAM PRIMARY CARE PHYSICIAN General Info Information Given By : Patient Languages : [place] Is Patient Female and 13-50 no hysterectomy : Yes Status : Patient denies Are you ? : No ARISTEO JOYCE [facility] 05/29/2014 9:14 TEAM PRIMARY CARE PHYSICIAN Subjective Pain Symptoms : Yes ARISTEO JOYCE [facility] 05/29/2014 9:14 TEAM PRIMARY CARE PHYSICIAN Pain Scale Pain Scale Verbal 0-10 : Open ARISTEO JOYCE [facility] 05/29/2014 9:14 TEAM PRIMARY CARE PHYSICIAN Pain Pain Assessment Grid Pain 1 Location : Pelvic Laterality : Left Intensity : 5 ARISTEO JOYCE [facility] 05/29/2014 9:14 TEAM PRIMARY CARE PHYSICIAN Dependent Habits Tobacco Use/Currently Using : No Exposure to Tobacco Smoke : Care provider denies smoking in home Smoking Status : Never smoker ARISTEO JOYCE [facility] 05/29/2014 9:14 TEAM PRIMARY CARE PHYSICIAN Tobacco Use Grid Last Use : never ARISTEO JOYCE [facility] 05/29/2014 9:14 TEAM PRIMARY CARE PHYSICIAN Alcohol Use : No ARISTEO JOYCE [facility] 05/29/2014 9:14 TEAM PRIMARY CARE PHYSICIAN Caffeine Use Grid Caffeine Use : Current Type : Soft drinks Frequency : Weekly Amount : 3 cans per week ARISTEO JOYCE [facility] 05/29/2014 9:14 TEAM PRIMARY CARE PHYSICIAN Recreational Drug Use Grid Drug Use : None ARISTEO JOYCE [facility] 05/29/2014 9:14 TEAM PRIMARY CARE PHYSICIAN ID Screen Drug Resistant Organism : No Travel Within Last 21 Days : No ARISTEO JOYCE [facility] 05/29/2014 9:14 TEAM PRIMARY CARE PHYSICIAN Source: [facility] POWERCHART Document Id: [id number] TEAM PRIMARY CARE PHYSICIAN!49 PRIMARY CARE PHYSICIAN documented in this encounter Plan of Treatment Not on filedocumented as of this encounter Visit Diagnoses Not on filedocumented in this encounter Additional Health Concerns Assessment Noted Time PHQ-9 Depression Total Score: 2 05/04/2014 8:13 AM TEAM PRIMARY CARE PHYSICIAN documented as of this encounter
--- OUTSIDE RECORDS SUMMARY | 2021-12-10 15:38 | XMS_ITS | Encounter Summary ---
:1980 Author Organization [facility] Address [address] [place] [address] Care Team Providers Name Role Phone Unavailable Primary Care Provider Unavailable Encounter Details Date Type Department Care Team Description 07/12/2014 - Hospital Encounter HX [facility] Rocco Dickson , 07/13/2014 [place] [address] [place] [id number] Social History Tobacco Use Types Packs/Day Years Used Date Smoking Tobacco: Never Assessed Sex Assigned at Date Recorded Female 04/15/2017 7:38 PM [employer] documented as of this encounter Last Filed Vital Signs Vital Sign Reading Time Taken Comments Blood Pressure 134/90 07/13/2014 8:30 PM CDT Pulse 76 07/13/2014 12:15 PM CDT Temperature - - Respiratory Rate 16 07/13/2014 8:30 PM CDT Oxygen Saturation - - Inhaled Oxygen Concentration - - Weight 58.2 kg (128 lb 4.9 oz) 07/12/2014 6:17 AM CDT Height 166 cm (5' 5.35) 07/13/2014 6:30 PM CDT Body Mass Index 21.12 07/12/2014 6:17 AM CDT documented in this encounter Discharge Summaries Anne Alexander R.N. - 07/13/2014 9:50 PM CDT Discharge Summary Discharge Summary Entered On: 07/13/2014 21:53 CDT Performed On: 07/13/2014 21:50 CDT by ANNE ALEXANDER RN DC Information Discharged to : Home independently Current Home Treatments : None Home Equipment : None Professional Skilled Services : None Special Services and Community Resources : None Mode of Discharge : Wheelchair Discharge Transportation : Private vehicle Accompanied By : Nurse Date/Time of Discharge : 07/13/2014 21:45 CDT ANNE ALEXANDER RN - 07/13/2014 21:51 CDT Education General Patient Education [employer] Topics : Activity limitations/expectations, Bathing/Hygiene, Discharge instructions/Medication list,Exercise, Importance of follow-up visits, Individual plan for pain management, Medication dosage, route, scheduling, Pain Management, Physical limitations, Turn/Cough/Deep breathing Individuals Taught : Patient, Spouse Barriers to Learning : None evident Teaching Method : Demonstration, Explanation, Printed materials Teaching Evaluation : Verbalizes understanding ANNE ALEXANDER RN - 07/13/2014 21:51 CDT Source: [employer] Document Id: [id number] CDT!19 Anne Alexander R.N. - 07/13/2014 9:32 PM CDT Hospital Discharge Instructions [address] [address] Patient Discharge Instructions Name: DENICE OWENS Current Date: 07/13/2014 21:32:31 : 1980 12:00 AM [facility] Number: [id number] Patient [address]: [address] [place] [phone] Patient Primary Care Provider: Name: YOBANY VANG MD Discharge Diagnosis: [facility] in [place] would like to thank you for allowing us to assist you with your healthcare needs. The following includes patient education materials and information regarding your injury/illness. Comment: DENICE OWENS has been given the following list of follow-up instructions, medication list and patient education materials: Follow-up Instructions Discharge Diet Diet Type: Regular Discharge Instruction General Activity Limitations: Activity as tolerated Avoid Lifting: Greater than 20 pounds Duration of Lifting Limitations: 6 weeks Exercise Instructions: Avoid Strenuous exercise Driving Limitations: Don't drive while taking pain medicine Sexual Activity Limitations: No intercourse for 6 weeks Call for worsening symptoms: Contact Primary Care Provider Special Instructions: FOLLOW UP IMMEDIATELY IN CASE OF FEVER, CHILLS, NAUSEA, VOMITING, EXCESSIVE BLEEDING OR PAIN. Medications Medication/Strength How to Take Indications/Special Instructions/Comments/Notes for Patient Medication Changes/Routing azelaic acid topical (azelaic acid 20% topical cream) 1 oliver, Topical, two times a day docusate (Colace 100 mg oral capsule) 1 cap, Oral, two times a day Routed to [address] [phone] multivitamin with minerals (multivitamin with minerals Multiple Vitamins with Zinc oral capsule) 1 cap, Oral, once a day with magnesium oxyCODONE (oxyCODONE 5 mg oral tablet) 2 Tablet(s), Oral, every 4 hours as needed for pain x 14 day(s) Routed to [employer] Taking the Following Medications: misoprostol (Cytotec 200 mcg oral tablet) Medication list as of 07-13-14 21:32 Attention: If you have any medications at home that are not on this list, DO NOT take them until youcontact your provider for clarification. Give a copy of your medication list to your primary care provider. Update your medication list any time medications or doses are changed and carry your medication list at all times in case of emergency. Comment: Electronically Signed By: ROCCO DICKSON MD Signed On:13-JUL-2014 21:25:50 Your Upcoming Appointments Date Time Location Provider 07/20/2014 12:45 [facility] TWYLA Foster MD, Dominga Gamez 07/26/2014 15:35 [facility] HR OPERATIONS ADVISOR Rocco Dickson MD 08/03/2014 13:45 [facility] TWYLA Foster MD, Dominga Gamez 08/10/2014 13:45 [facility] TW[facility] Foster MD, Dominga Gamez 08/21/2014 12:45 [facility] TW[facility]LA Foster MD, ROMAN Lopez JENNIFER LYNN , have received the attached patient education materials/instructions and have verbalized understanding: Patient Signature Date Time Care Provider Signature Date Time Laparoscopic Hysterectomy: Your Home Recovery When you leave the hospital, youll receive instructions on caring for yourself at home. Following these instructions helps ensure a faster recovery. It often takes about 1 to 4 weeks to recover from laparoscopic hysterectomy. But recovery time varies from woman to woman. Taking Care of Yourself ainFollow these tips to make your recovery as safe and comfortable as possible: ?? To avoid constipation, eat fruits, vegetables, and whole grains. Drink plenty of water. Your doctor may suggest that you use a laxative or a mild stool softener. ?? Ask your friends and family to help with chores and errands while you recover. ?? Do not lift anything over 10 pounds to avoid straining your incisions. ?? Do not get your incisions wet until your doctor says its okay to do so. ?? Do not put anything in the vagina until your doctor says its safe to do so. This includes using tampons and douches and having sexual intercourse. ?? Schedule follow-up visits with your doctor. When to Call Your Doctor Call your doctor if you notice any of the following: Chills or a fever of 100.4?F or higher. Bright red vaginal bleeding or a smelly discharge. Difficulty urinating or burning during urination. Severe abdominal pain or bloating. A red, swollen, or draining incision site. ?? [id number] [facility], [address] [place] [address], [place] [address]. All rights reserved. This information is not intended as a substitute for professional medical care. Always follow your healthcare professional's instructions. Discharge Instructions for Laparoscopic Hysterectomy You had a procedure called laparoscopic hysterectomy. A surgeon removed your uterus using instruments inserted through small incisions in your abdomen. These incisions may be tender or sore. You may also have pain in your upper back or shoulders. This is from the gas used to enlarge your abdomen to allow your doctor to see inside your pelvis and perform the procedure. This pain usually goes away in aday or two. It usually takes from 1--4 weeks to recover from laparoscopic hysterectomy. Remember, though, that recovery time varies from woman to woman. Here's what you can do to speed your recovery following surgery. Home Care ?? Continue the coughing and deep breathing exercises that you learned in the hospital. ?? Take your medications exactly as directed by your doctor. ?? Avoid constipation. ?? Eat fruits, vegetables, and whole grains. ?? Drink 6--8 glasses of water a day, unless told to do otherwise. ?? Use a laxative or a mild stool softener if your doctor says it's okay. ?? Shower as usual. Wash your incisions with mild soap and water. Pat dry. ?? Don't use oils, powders, or lotions on your incisions. ?? Don't put anything in your vagina until your doctor says it's safe to do so. Don't use tampons ordouches. Don't have sexual intercourse. ?? If you had both ovaries removed, report hot flashes, mood swings, and irritability to your doctor. There may be medications that can help you. Activity ?? Ask your doctor when you can start driving again. It's usually okay to drive as soon as you are free of pain and able to move comfortably from side to side. Don't drive while you are still taking narcotic pain medications. ?? Ask others to help with chores and errands while you recover. ?? Dont lift anything heavier than 10 pounds for 4 weeks. ?? Dont vacuum or do other strenuous activities until the doctor says it's okay. ?? Walk as often as you feel able. ?? Climb stairs slowly and pause after every few steps. Follow-Up Make a follow-up appointment as directed by our staff. When to Call Your Doctor Call your doctor right away if you have any of the following: Fever above 100.4?F (38?C) or chills Bright red vaginal bleeding or vaginal bleeding that soaks more than one sanitary pad per hour A foul smelling discharge from the vagina Trouble urinating or burning when you urinate Severe pain or bloating in your abdomen Redness, swelling, or drainage at your incision sites Shortness of breath or chest pain ?? [id number] [facility], [address] [place] [address], [place] [address]. All rights reserved. This information is not intended as a substitute for professional medical care. Always follow your healthcare professional's instructions. This document has images extracted. Please consider using [employer] for all your patient education needs. Source: [facility] POWERCHART Document Id: [id number] Anne Alexander R.N. - 07/13/2014 9:32 PM CDT Hospital Discharge Medication List [address] [address] Discharge Medication List Name: DENICE OWENS Current Date: 07/13/2014 21:32:30 : 1980 12:00 AM [facility] Number: [id number] Patient Address: [address] [place] [phone] Patient Primary Care Provider: Name: YOBANY VANG MD Discharge Diagnosis: [facility] in [place] would like to thank you for allowing us to assist you with your healthcare needs. The following includes patient education materials and information regarding your injury/illness. Medications Medication/Strength How to Take Indications/Special Instructions/Comments/Notes for Patient Medication Changes/Routing azelaic acid topical (azelaic acid 20% topical cream) 1 oliver, Topical, two times a day docusate (Colace 100 mg oral capsule) 1 cap, Oral, two times a day Routed to [address] [phone] multivitamin with minerals (multivitamin with minerals Multiple Vitamins with Zinc oral capsule) 1 cap, Oral, once a day with magnesium oxyCODONE (oxyCODONE 5 mg oral tablet) 2 Tablet(s), Oral, every 4 hours as needed for pain x 14 day(s) Routed to [employer] Taking the Following Medications: misoprostol (Cytotec 200 mcg oral tablet) Medication list as of 07-13-14 21:32 Attention: If you have any medications at home that are not on this list, DO NOT take them until youcontact your provider for clarification. Give a copy of your medication list to your primary care provider. Update your medication list any time medications or doses are changed and carry your medication list at all times in case of emergency. Comment: Electronically Signed By: ROCCO DICKSON MD Signed On:13-JUL-2014 21:25:50 Source: [facility] POWERCHART Document Id: [id number] Rocco Dickson M.D. - 07/13/2014 12:00 AM CDT [id number] ADMISSION DATE: 07/12/2014 DISCHARGE DATE: 07/13/2014 DISCHARGE DIAGNOSES 1. Status post laparoscopic hysterectomy with uterosacral ligament suspension, bilateral salpingectomy and cystoscopy with lysis of adhesions. 2. Postop fever. HISTORY OF PRESENT ILLNESS Ms. Galdamez is a 34-year-old lady who present to the hospital for surgical intervention. This was performed without intraoperative complications and postop, the patient developed a fever up to 37.9, that is postop and later on postop day #0, she had a temperature of 38.6. There was no focus of infection noted. Initially, she was on morphine. This was DC'd due to the possibility of causing a fever. Patient had intrathecal narcotic block immediately postoperative for pain management. On postop day #1, the patient remained afebrile. However, the highest temperature was 37.8. She improved significantly, was able to tolerate by mouth intake well. Has had multiple meals during her stay in the hospital,again had no nausea. Her pains were initially not well controlled; however, with modification of thepain medication, her pain control improved significantly. She was able to ambulate, tolerated ambulation without difficulty, had minimal bleeding. Was able to void without difficulty. PHYSICAL EXAMINATION On postop day 1, I have performed serial physical exam evaluations during the day. All her exams were benign and those include lung exam, abdominal exam and check for signs of deep vein thrombosis. VITAL SIGNS: She remains for the most part to be normotensive, no tachycardia, high oxygen saturation levels and her temperature on postop day #1 range between 37 to 37.8. The patient was kept throughout the day for monitoring and was discharged around hour 2100. In my last evaluation, I did discuss with the patient, keeping her overnight for observation prior to discharge home, patient reports that she felt very well and wanted to be discharged home. We talked about signs and symptoms that should bring her in including a temperature of 100.4, nausea, vomiting, excessive pain, excessive bleeding, or any other concerns. Patient was given prescription for oxycodone. Patient reports she had Motrin 800 at home and Tylenol, which she would be taking. She was also given a prescription for Colace. Patient is to follow up in2 weeks for postop check. Patient is to stay without intercourse. Rocco Dickson M.D./suly Electronically Signed By: ROCCO DICKSON MD On: 08/12/2014 01:52 PM Source: [facility] MHSDOLBEYNONRADSYS Document Id: [id number] documented in this encounter Medications at Time of Discharge Medication Sig Dispensed Refills Start Date End Date MULTIVITAMIN WITH MINERALS Take 1 capsule by 0 ORAL mouth daily. documented as of this encounter Progress Notes Rocco Dickson M.D. - 07/13/2014 12:00 AM CDT [id number] I was called and the patient had some complaints about itching and medication concerns in regard to metoprolol. Denice is status post laparoscopic hysterectomy with uterosacral ligament suspension, cystoscopy and bilateral salpingectomy. It was brought to my attention the patient had developed a fever, the highest was 38.6. The patient, postop, had a temperature of 37.9, then her temperature went up to 38.1, then came down to the 37s, and then I was called because her temperature was 38.6. Patient otherwise is doing well, ambulating, tolerating oral intake well. Has had multiple meals. She is passing gas. Denies any focus of significant pain or discomfort. Her pains were adequately controlled. PHYSICAL EXAMINATION GENERAL APPEARANCE: No acute distress. Appears to be comfortable. LUNGS: Clear. Good bilateral air entry. ABDOMEN: Soft, appropriately tender. No guarding. No rebound. No peritoneal signs. Incisions clean, dry, and intact. LOWER EXTREMITIES: No evidence of deep vein thrombosis and SCDs applied. Urine output adequate. VITAL SIGNS: Blood pressures are normotensive, pulse in the 80s to 90s, respirations 16. Patient hasbeen using her incentive spirometer. IMPRESSION/REPORT/PLAN This is an immediate postop fever, most likely secondary to medication. Review of her medicine revealed the patient is on morphine, and this was discontinued. We will continue to monitor the patient and reassess in the morning, or earlier as needed. Rocco Dickson M.D./suly Electronically Signed By: ROCCO DICKSON MD On: 08/12/2014 01:52 PM Source: [facility] MHSDOLBEYNONRADSYS Document Id: [id number] documented in this encounter Procedure Notes Eliana Osorio R.N. - 07/13/2014 7:35 AM CDT Urinary Catheter Insertion/Discontinuation Urinary Catheter Insertion/Discontinuation Entered On: 07/13/2014 7:48 CDT Performed On: 07/13/2014 7:35 CDT by ELIANA OSORIO RN Urinary Catheter Urinary Catheter Activity Type : Discontinue Date/Time Catheter Discontinued : 07/13/2014 7:35 CDT Urinary Catheter Procedure Response : Expected ELIANA OSORIO RN - 07/13/2014 7:48 CDT Source: [facility] POWERCHART Document Id: [id number] CDT!5 Nico Pagan R.R.[facility], C.R.T. - 07/12/2014 3:45 PM CDT RT Oxygen Therapy w/ Exercise RT Oxygen Therapy w/ Exercise Entered On: 07/12/2014 15:45 CDT Performed On: 07/12/2014 15:45 CDT by NICO PAGAN O2 Therapy w/ Exercise Done By : Respiratory Therapy Oxygen Therapy : Room air NICO PAGAN - 07/12/2014 15:45 CDT RT Charges Therapy Subsequent : RT Visit Oxygen Hourly Charge : 2 units NICO PAGAN - 07/12/2014 15:45 CDT Source: [employer] Document Id: [id number] CDT!7 Jace Perdomo R.R.T. - 07/12/2014 2:20 PM CDT RT Oxygen Therapy w/ Exercise RT Oxygen Therapy w/ Exercise Entered On: 07/12/2014 14:20 CDT Performed On: 07/12/2014 14:20 CDT by JACE PERDOMO O2 Therapy w/ Exercise Done By : Respiratory Therapy Oxygen Therapy : Nasal Cannula Oxygen Flow Rate : 3 L/min JACE PERDOMO - 07/12/2014 14:20 CDT RT Charges Therapy Initial : RT Visit JACE PERDOMO - 07/12/2014 14:20 CDT RT Therapy Equipment Charges Equipment Set-Up/Initial Charges : Nasal Cannula JACE PERDOMO - 07/12/2014 14:20 CDT Source: [employer] Document Id: [id number] CDT!9 Jace Perdomo R[employer] - 07/12/2014 2:14 PM CDT RT Hyperinflation Therapy RT Hyperinflation Therapy Entered On: 07/12/2014 14:16 CDT Performed On: 07/12/2014 14:14 CDT by JACE PERDOMO Hyperinflation Therapy Done By : Respiratory Therapy RT Indication : Prevent atelectasis Incentive Spirometry Volume Achieved : 1,200 mL Number of Breaths : 20 Self Administration Frequency : q 1 hour Turn, Cough, and Deep Breath : With encouragement Breath Hold : Yes Incentive Spirometry Patient Effort : Good Pt Participation in Treatment - IS : Cooperative JACE PERDOMO - 07/12/2014 14:14 CDT Post Tx Assess Cough and Deep Breathe : Done Spontaneous Cough : No Suction : None Cough : Dry, Fair, Non-Productive Sputum Amount : None JACE PERDOMO - 07/12/2014 14:14 CDT Post Tx Assess II Level of Consciousness : Alert JACE PERDOMO 07/12/2014 14:14 CDT Education Respiratory Therapy Education Grid. Topics : Incentive spirometry Individuals Taught : Patient Barriers to Learning : None evident Teaching Method : Explanation Teaching Evaluation : Returns demonstrations correctly JACE PERDOMO - 07/12/2014 14:14 CDT RT Charges Therapy Initial : RT Visit JACE PERDOMO - 07/12/2014 14:14 CDT RT Therapy Equipment Charges Equipment Set-Up/Initial Charges : Incentive spirometry device JACE PERDOMO 07/12/2014 14:14 CDT Source: [employer] Document Id: [id number] CDT!31 Debby Campos R.N. - 07/12/2014 6:17 AM CDT Preprocedure Checklist Document Has Been Updated Preprocedure Checklist Entered On: 07/12/2014 6:19 CDT Performed On: 07/12/2014 6:17 CDT by DEBBY CAMPOS RN Checklist Last Fluid Intake : 07/11/2014 21:00 CDT Last Food Intake : 07/11/2014 21:00 CDT DEBBY CAMPOS RN - 07/12/2014 6:30 CDT Surgery Prep Grid Contacts/Glasses Removed : NA Dentures Removed : NA Hairpins/Hairpiecies Removed : NA Hearing Aid Removed : NA Home Prep Complete : NA Jewelry/Piercing Removed : NA Makeup/Nail [place] Removed : NA Oral Hygiene : Yes Preop Scrub AM of Surgery : Yes Preop Scrub Night Prior to Surgery : Yes Prosthesis Removed : NA Surgical Prep Verified : Yes Tampon Removed : NA Wearing Patient Gown : Yes Voided manager utilization review to procedure : Yes DEBBY CAMPOS RN - 07/12/2014 6:30 CDT Surgical Preparation : Clipped DEBBY CAMPOS RN - 07/12/2014 6:30 CDT Patient Rights Grid Blood Consent Signed : Yes Surgical/Procedure Consent Signed : Yes DEBBY CAMPOS RN - 07/12/2014 6:30 CDT Family Location : [facility] here DEBBY CAMPOS RN - 07/12/2014 6:30 CDT Status : Patient denies (Comment: had tubal [DEBBY CAMPOS RN - 07/12/2014 6:17 CDT] ) DEBBY CAMPOS RN - 07/12/2014 6:17 CDT Checklist II Patient Safety Grid Allergy Band on and Verified : Yes Anesthesia Consult : Yes DEBBY CAMPOS RN - 07/12/2014 6:17 CDT Band on for Limb Alert : NA Blood Band on and Verified : NA DEBBY CAMPOS RN - 07/12/2014 6:30 CDT Current ECG in Medical Record : Yes Current H&P in Medical Record : Yes DEBBY CAMPOS RN - 07/12/2014 6:17 CDT Implants Verified : DEBBY ARANA RN - 07/12/2014 6:30 CDT Medication Reconciliation on Chart : Yes DEBBY CAMPOS RN - 07/12/2014 6:17 CDT Pacemaker/AICD Verified : DEBBY ARANA RN - 07/12/2014 6:30 CDT ID Band on and Verified : Yes Preop Medications Sent With Patient : Yes Relevant Images in Medical Record : Yes Review of Labs : Yes Procedure/Site Verified by Patient/Family : Yes Procedure/Site Verified by RN : Yes Procedure/Site Verified by Physician : Yes Type & Screen/Type & Cross Completed : Yes RN Who Verified Site : DEBBY CAMPOS RN Physician Who Verified Site : ROCCO DICKSON MD, CHERYL ANN RN - 07/12/2014 6:17 CDT Valuables/Belongings Valuables/Belongings Grid Valuables at Bedside Clothes, Patient Valuables : Jacket, Pants, Shirt, Shoes, Undergarments Electronic Devices : Cell phone Jewelry : None Monetary Items : None Personal Devices : None Miscellaneous : None DEBBY CAMPOS RN - 07/12/2014 6:30 CDT Room Orientation/Facility Policy Reviewed : Yes Home Medication Disposition : None brought in with patient DEBBY CAMPOS RN - 07/12/2014 6:30 CDT Education Preprocedure Education Grid Procedure Type : hysterectomy Education Topics : Pain management, Patient rights and responsibilities, Plan of care, Tubes/Drains/IV's Individuals Taught : Patient Barriers to Learning : None evident Teaching Method : Explanation Teaching Evaluation : Verbalizes understanding DEBBY CAMPOS RN - 07/12/2014 6:17 CDT Preop Holding Mode of Arrival : Cart Preoperative Orders Complete : Yes DEBBY CAMPOS RN - 07/12/2014 6:17 CDT Advance Directive Advanced Directives : No Advance Directive Additional Information : No DEBBY CAMPOS RN - 07/12/2014 6:17 CDT Vital Signs Temperature Core : 37.0 DegC(Converted to: 98.6 DegF) Apical Heart Rate : 111 /min (HI) Respiratory Rate : 16 /min Systolic Blood Pressure : 132 mmHg Diastolic Blood Pressure : 94 mmHg (>HHI) NIBP Mean : 107 mmHg BP Location : Left upper extremity SpO2 : 99 % Oxygen Saturation Monitoring Frequency : Continuous Oxygen Therapy : Room air DEBBY CAMPOS RN - 07/12/2014 6:30 CDT Height : 166 cm(Converted to: 5 ft 5 inch(es)) Actual Weight : 58.2 kg Actual Weight Conversion to Pounds : 128.04 lb Weight Source : Standing scale Height Source : Measured Body Mass Index : 21.12 kg/m2 DEBBY CAMPOS RN - 07/12/2014 6:17 CDT Allergy (As Of: 07/12/2014 06:19:31 CDT) Allergies (Active) NKA Estimated Onset Date: Unspecified ; Created By: BRITTANY WALTON; Reaction Status: Active ; Category: Drug ; Substance: NKA ; Type: Allergy ; Updated By: BRITTANY WALTON; Reviewed Date: 07/12/2014 6:16 CDT Source: [employer] Document Id: [id number] CDT!53 documented in this encounter Nursing Notes Joycelyn Angeles R.N. - 07/13/2014 5:38 PM CDT PRN Response PRN Response Entered On: 07/13/2014 19:44 CDT Performed On: 07/13/2014 17:38 CDT by JOYCELYN ANGELES RN PRN Medication Effectiveness Evaluation PRN Medication Effective : Yes Post Medication Pain Assessment : 3 JOYCELYN ANGELES RN - 07/13/2014 19:40 CDT Source: [employer] Document Id: [id number] CDT!4 Yvonne Torres R.N. - 07/13/2014 1:15 PM CDT PRN Response PRN Response Entered On: 07/13/2014 13:44 CDT Performed On: 07/13/2014 13:15 CDT by YVONNE TORRES RN PRN Medication Effectiveness Evaluation PRN Medication Effective : Yes Post Medication Pain Assessment : 3 YVONNE TORRES RN - 07/13/2014 13:44 CDT Source: [employer] Document Id: [id number] CDT!4 Yvonne Torres R.N. - 07/13/2014 9:25 AM CDT PRN Response PRN Response Entered On: 07/13/2014 9:41 CDT Performed On: 07/13/2014 9:25 CDT by YVONNE TORRES RN PRN Medication Effectiveness Evaluation PRN Medication Effective : Yes Post Medication Pain Assessment : 5 YVONNE TORRES RN - 07/13/2014 9:41 CDT Source: [employer] Document Id: [id number] CDT!4 Eliana Osorio R.N. - 07/13/2014 5:30 AM CDT PRN Response PRN Response Entered On: 07/13/2014 5:31 CDT Performed On: 07/13/2014 5:30 CDT by ELIANA OSORIO RN PRN Medication Effectiveness Evaluation PRN Medication Effective : Yes Post Medication Pain Assessment : 6 ELIANA OSORIO RN - 07/13/2014 5:31 CDT Jurado Jurado Agitation Sedation Scale (RASS) : Alert and calm RASS Score : 0 ELIANA OSORIO RN - 07/13/2014 5:31 CDT Respiratory Respirations : Unlabored Respiratory Pattern : Regular ELIANA OSORIO RN - 07/13/2014 5:31 CDT Source: [employer] Document Id: [id number] CDT!10 Eliana Osorio R.N. - 07/13/2014 4:00 AM CDT PRN Response PRN Response Entered On: 07/13/2014 4:26 CDT Performed On: 07/13/2014 4:00 CDT by ELIANA OSORIO RN PRN Medication Effectiveness Evaluation PRN Medication Effective : No ELIANA OSORIO RN - 07/13/2014 4:25 CDT Source: [employer] Document Id: [id number] CDT!3 Eliana Osorio R.N. - 07/13/2014 1:36 AM CDT PRN Response PRN Response Entered On: 07/13/2014 1:37 CDT Performed On: 07/13/2014 1:36 CDT by ELIANA OSORIO RN PRN Medication Effectiveness Evaluation PRN Medication Effective : Yes Post Medication Pain Assessment : 5 ELIANA OSORIO RN - 07/13/2014 1:36 CDT Comfort Measures Comfort Measures Grid Heat Therapy : Yes Positioning : Yes Quiet Environment : Yes CHRISELIANA ALEXANDRA RN - 07/13/2014 1:36 CDT Comfort Measures Response : Comfort level increased CHRISELIANA ALEXANDRA RN - 07/13/2014 1:36 CDT Jurado Jurado Agitation Sedation Scale (RASS) : Alert and calm RASS Score : 0 ELIANA OSORIO RN - 07/13/2014 1:36 CDT Respiratory Respirations : Unlabored Respiratory Pattern : Regular ELIANA OSORIO RN - 07/13/2014 1:36 CDT Source: [employer] Document Id: [id number] CDT!16 Steff De La Cruz R.N. - 07/13/2014 12:03 AM CDT PRN Response PRN Response Entered On: 07/12/2014 23:50 CDT Performed On: 07/13/2014 0:03 CDT by STEFF DE LA CRUZ RN PRN Medication Effectiveness Evaluation PRN Medication Effective : Yes STEFF DE LA CRUZ RN - 07/12/2014 23:50 CDT Source: [employer] Document Id: [id number] CDT!3 Steff De La Cruz R.N. - 07/12/2014 10:33 PM CDT PRN Response PRN Response Entered On: 07/12/2014 22:36 CDT Performed On: 07/12/2014 22:33 CDT by STEFF DE LA CRUZ RN PRN Medication Effectiveness Evaluation PRN Medication Effective : Yes Post Medication Pain Assessment : 6 STEFF DE LA CRUZ RN - 07/12/2014 22:36 CDT Source: [employer] Document Id: [id number] CDT!4 Steff De La Cruz R.N. - 07/12/2014 9:07 PM CDT PRN Response PRN Response Entered On: 07/12/2014 22:11 CDT Performed On: 07/12/2014 21:07 CDT by STEFF DE LA CRUZ RN PRN Medication Effectiveness Evaluation PRN Medication Effective : Yes Post Medication Pain Assessment : 5 STEFF DE LA CRUZ RN - 07/12/2014 22:11 CDT Source: [employer] Document Id: [id number] CDT!4 Steff De La Cruz R.N. - 07/12/2014 5:29 PM CDT PRN Response PRN Response Entered On: 07/12/2014 17:27 CDT Performed On: 07/12/2014 17:29 CDT by STEFF DE LA CRUZ RN PRN Medication Effectiveness Evaluation PRN Medication Effective : Yes Post Medication Pain Assessment : 4 STEFF DE LA CRUZ RN - 07/12/2014 17:27 CDT Source: [employer] Document Id: [id number] CDT!4 Steff De La Cruz R.N. - 07/12/2014 4:21 PM CDT PRN Response PRN Response Entered On: 07/12/2014 16:41 CDT Performed On: 07/12/2014 16:21 CDT by STEFF DE LA CRUZ RN PRN Medication Effectiveness Evaluation PRN Medication Effective : Yes Post Medication Pain Assessment : 6 STEFF DE LA CRUZ RN - 07/12/2014 16:41 CDT Source: [employer] Document Id: [id number] CDT!4 Steff De La Cruz R.N. - 07/12/2014 3:53 PM CDT PRN Response PRN Response Entered On: 07/12/2014 16:25 CDT Performed On: 07/12/2014 15:53 CDT by STEFF DE LA CRUZ RN PRN Medication Effectiveness Evaluation PRN Medication Effective : Yes STEFF DE LA CRUZ RN - 07/12/2014 16:25 CDT Source: [employer] Document Id: [id number] CDT!3 Bhavesh Reddy R.N. - 07/12/2014 1:42 PM CDT PRN Response PRN Response Entered On: 07/12/2014 13:32 CDT Performed On: 07/12/2014 13:42 CDT by BHAVESH REDDY RN PRN Medication Effectiveness Evaluation PRN Medication Effective : Yes Post Medication Pain Assessment : 6 BHAVESH REDDY RN - 07/12/2014 13:31 CDT Source: [employer] Document Id: [id number] CDT!4 Bhavesh Reddy R.N. - 07/12/2014 1:12 PM CDT PRN Response PRN Response Entered On: 07/12/2014 13:03 CDT Performed On: 07/12/2014 13:12 CDT by BHAVESH REDDY RN PRN Medication Effectiveness Evaluation PRN Medication Effective : Yes Post Medication Pain Assessment : 5 BHAVESH REDDY RN - 07/12/2014 13:03 CDT Source: [employer] Document Id: [id number] CDT!4 Bhavesh Reddy R.N. - 07/12/2014 12:20 PM CDT PRN Response PRN Response Entered On: 07/12/2014 13:44 CDT Performed On: 07/12/2014 12:20 CDT by BHAVESH REDDY RN PRN Medication Effectiveness Evaluation PRN Medication Effective : Yes BHAVESH REDDY RN - 07/12/2014 13:44 CDT Source: [employer] Document Id: [id number] CDT!3 Bhavesh Reddy R.N. - 07/12/2014 12:10 PM CDT PRN Response PRN Response Entered On: 07/12/2014 12:25 CDT Performed On: 07/12/2014 12:10 CDT by BHAVESH REDDY RN PRN Medication Effectiveness Evaluation PRN Medication Effective : No BHAVESH REDDY RN - 07/12/2014 12:25 CDT Source: [employer] Document Id: [id number] CDT!3 Bhavesh Reddy R.N. - 07/12/2014 12:02 PM CDT PRN Response PRN Response Entered On: 07/12/2014 12:25 CDT Performed On: 07/12/2014 12:02 CDT by BHAVESH REDDY RN PRN Medication Effectiveness Evaluation PRN Medication Effective : No BHAVESH REDDY RN - 07/12/2014 12:25 CDT Source: [employer] Document Id: [id number] CDT!3 Bhavesh Reddy R.N. - 07/12/2014 11:53 AM CDT PRN Response PRN Response Entered On: 07/12/2014 12:25 CDT Performed On: 07/12/2014 11:53 CDT by BHAVESH REDDY RN PRN Medication Effectiveness Evaluation PRN Medication Effective : No BHAVESH REDDY RN - 07/12/2014 12:25 CDT Source: [employer] Document Id: [id number] CDT!3 Bhavesh Reddy R.N. - 07/12/2014 11:12 AM CDT PRN Response PRN Response Entered On: 07/12/2014 13:41 CDT Performed On: 07/12/2014 11:12 CDT by BHAVESH REDDY RN PRN Medication Effectiveness Evaluation PRN Medication Effective : No BHAVESH REDDY RN - 07/12/2014 13:40 CDT Source: [employer] Document Id: [id number] CDT!3 Bhavesh Reddy R.N. - 07/12/2014 11:08 AM CDT PRN Response PRN Response Entered On: 07/12/2014 13:41 CDT Performed On: 07/12/2014 11:08 CDT by BHAVESH REDDY RN PRN Medication Effectiveness Evaluation PRN Medication Effective : No BHAVESH REDDY RN - 07/12/2014 13:41 CDT Source: [employer] Document Id: [id number] CDT!3 Debby Campos R.N. - 07/12/2014 6:21 AM CDT Pneumonia Immunization Assessment Pneumonia Immunization Assessment Entered On: 07/12/2014 6:21 CDT Performed On: 07/12/2014 6:21 CDT by DEBBY CAMPOS RN Pneumonia Protocol Pneumococcal Vaccine Exclusions : Patient has none of the below exclusions Pneumococcal Vaccine Age Group : Age 5 to 64 Pneumococcal Criteria 5 to 64 : Patient has none of the below criteria, vaccine is not indicated Pneumococcal Vaccine Candidate : No - Patient does not meet the criteria DEBBY CAMPOS RN - 07/12/2014 6:21 CDT Source: [employer] Document Id: [id number] CDT!6 Debby Campos R.N. - 07/12/2014 6:21 AM CDT Influenza Immunization Asmt Influenza Immunization Asmt Entered On: 07/12/2014 6:21 CDT Performed On: 07/12/2014 6:21 CDT by DEBBY CAMPOS RN Influenza Protocol Influenza Vaccine Exclusions : Patient is 9 years of age or older and has been previously immunized this season DEBBY CAMPOS RN - 07/12/2014 6:21 CDT Source: [employer] Document Id: [id number] CDT!3 Debby Campos R.N. - 07/12/2014 6:17 AM CDT Protocol Vascular Access Adult Protocol Vascular Access Adult Entered On: 07/12/2014 6:17 CDT Performed On: 07/12/2014 6:17 CDT by DEBBY CAMPOS RN Vascular Access Adult Protocol Age 15 years or older Adult Protocol : Yes Vascular Access Device Adult : Yes Exclusion Criteria Adult Vascular Access Protocol : Patient has none of the below exclusions Vascular Access Protocol Status Adult : Criteria Met DEBBY CAMPOS RN - 07/12/2014 6:17 CDT Source: [facility] [employer] Document Id: [id number] CDT!6 documented in this encounter OR Notes Op Note - Rocco Dickson M.D. - 07/12/2014 12:00 AM CDT [id number] PREOPERATIVE DIAGNOSES 1. Pelvic pain. 2. History suggestive of post tubal ligation syndrome. 3. Stage I uterine prolapse. PROCEDURES 1. Total laparoscopic hysterectomy. 2. Bilateral salpingectomy. 3. Uterosacral ligament suspension. 4. Cystoscopy. 5. Lysis of adhesions. ANESTHESIA General. ESTIMATED BLOOD LOSS 25 mL. COMPLICATIONS None. PROCEDURE DESCRIPTION The patient was taken to the operating room, was put under general anesthesia in the dorsal lithotomy position. The abdomen, perineum, and vagina were scrubbed and draped in the usual sterile fashion. A timeout was performed identifying the patient and the procedure. The procedure was then initiated by assembling the ZUMI uterine manipulator. The cervix was initially dilated with Chow dilators and then two 0 Vicryl sutures were taken to attach the DOMINGO colpotomizer to the cervix and the ZUMI was assembled adequately. A Valladares catheter was inserted. Attention was then turned to the abdomen. Local anesthetic was applied to the umbilical area and a 5 mm incision was made and the abdomen was entered under direct visualization. The abdomen was inflated with CO2 gas. There was no visceral injuries, adhesions at the level of entry. There was some adhesions in the lower abdomen blocking access to the pelvic. These adhesions were omentum adherent to the anterior abdominal wall. Those were released. A right 11 mm trocar was introduced and a left 5 mm trocar was introduced. The procedure was then initiated on the left side. The utero-ovarian round ligament and tube were resected. The anterior and posterior leaf of the broad ligament was dissected. The bladder flap was developed on the right side. The uterine vasculature was skeletonized and coagulated using LigaSure. Attention was taken to visualize the ureter which appeared to be away the areas of dissection. Similar procedure was performed on the right side. The uterine vasculature was resected using LigaSure and then the cervicovaginal junction was resected. The uterus was then exteriorized. The vaginal apex was closed using 0 PDS sutures [id number]. The uterosacral ligaments were then identified and then were attached to the vaginal apex. A total of 4 sutures were taken attaching the uterosacral ligament to the vaginal apex. Attention wastaken to avoid ureteral injuries. At this point, the tubes were excised using LigaSure and then the abdomen was deflated of CO2 gas and inspected under low pressure. There was some oozing from the right edge of the vaginal apex. The oozer was identified and then the proximity of the vaginal apex angleto the ureter was identified and I was able to visualize the ureter in that area and then coagulatedthe bladder making sure that the ureter was not injured. Otherwise, there did not appear to be any si gnificant oozing. At this point, cystoscopy was performed revealing an intact bladder. No blood in the bladder. No sutures in the bladder. The bowel was visualized. Bilateral jets of urine were visualized coming out of the ureter orifices. At this point, a Ced-Ewa device was used to close the 11 mm trocar fascial defect and then a second 0 Vicryl was taken. There was some oozing from the 5 mmtrocar in the left lower quadrant. This was controlled with a 0 Vicryl in the fascia and subcutaneous suture using 3-0 Vicryl. There was also some minor oozing from the right lower quadrant subcutaneous layer. This was controlled by using 3-0 Vicryl subcutaneous suture. The skin was then approximated using 3-0 Vicryl subcuticular sutures. The vagina was inspected. The apex appeared to be adequately closed. There was no blood in the vaginal canal. Patient received intravenous antibiotics manager utilization review to the OR. Instruments, needle, and lap count were correct x2. Patient was transferred to the recovery room in good condition. Rocco Dickson M.D./suly Electronically Signed By: ROCCO DICKSON MD On: 07/26/2014 02:11 PM Source: [facility]OLBE[facility]SYS Document Id: [id number] documented in this encounter Miscellaneous Notes Miscellaneous - Conversion, Historical Provider Ser - 07/13/2014 9:45 PM CDT Coding Summary-Paper Based CODING DATE: 07/16/2014 [facility] STATUS: * Discharged to Home or Self Care PAYOR: Commercial Insurance APC DESCRIPTION 0131 Level II Laparoscopy ADMIT DX: 625.9 Unspecified Symptom Associated with Female Genital Organs REASON FOR VISIT DX: 625.9 Unspecified Symptom Associated with Female Genital Organs FINAL DX: PRINCIPAL: 625.9 Unspecified Symptom Associated with Female Genital Organs SECONDARY: 618.1 Uterine Prolapse without Mention of Vaginal Wall Prolapse 621.8 Other Specified Disorders of Uterus, Not Elsewhere Classified 620.8 Other Noninflammatory Disorders of Ovary, Fallopian Tube, and Broad Ligament 780.62 Postprocedural Fever PYMT PROC APC STAT DESCRIPTION DOCTOR NAME DATE [id number] T Laparoscopymelany YAHYA, FADI B MD 07/12/2014 with total hysterectomy, for uterus 250 g or less; with removal of tube(s) and/or ovary(s).. [id number] T Laparoscopymelany YAHYA, FADI B MD 07/12/2014 colpopexy (suspension of vaginal apex).. NOTE: The code number assigned matches the documented diagnosis and / or procedure in the patient's chart. However, the narrative phrase printed from the coding software may appear abbreviated, or result in slightly different terminology. Coded By: DARRYL HINSON Date Saved: 07/16/2014 01:50 pm [facility] [employer] Document Id: [id number] Miscellaneous - Anne Alexander R.N. - 07/13/2014 8:30 PM CDT Adult Activities of Daily Living Adult Activities of Daily Living Entered On: 07/13/2014 20:48 CDT Performed On: 07/13/2014 20:30 CDT by ANNE ALEXANDER RN ADLs I Patient Position : Sitting in bed Activity Status ADL : Up ad mariano Activity Assistance : Independent Assistive Device : None Repositioning/Pressure Reducing Devices : Pillow ANNE ALEXANDER RN - 07/13/2014 20:46 CDT ADLs II Hygiene Assistance Grid Back Rub : Maximum assistance Oral Care : Independent Yasmeen Care : Independent ANNE ALEXANDER RN - 07/13/2014 20:46 CDT Bowel Movement Last Date : 07/12/2014 CDT Standard Safety : Bed in low position, Call device within reach, ID band check, Night light, Non-Slip footwear, Rounds every 1 hour, Upper/Half-length side- rails up, Wheels locked ANNE ALEXANDER RN - 07/13/2014 20:46 CDT [facility] [employer] Document Id: [id number] CDT!14 Miscellaneous - Anne Alexander R.N. - 07/13/2014 8:30 PM CDT Adult Ongoing Assessment Adult Ongoing Assessment Entered On: 07/13/2014 20:54 CDT Performed On: 07/13/2014 20:30 CDT by ANNE ALEXANDER RN Respiratory Respiratory Patient Stated Symptoms : None Respirations : Unlabored Respiratory Pattern : Regular All Lobes Breath Sounds : Clear Cough and Deep Breathe : Done Cough : None ANNE ALEXANDER RN - 07/13/2014 20:48 CDT Cardiovascular CV Patient Stated Symptoms : None Heart Rhythm : Regular Antiembolism Device Yes/No : Yes Nail Bed Color : [place] Capillary Refill : Less than 2 seconds Edema Assessment : No ANNE ALEXANDER RN - 07/13/2014 20:48 CDT Pulses Grid Dorsalis Pedis Pulse, Left : 2+ Normal Dorsalis Pedis Pulse, Right : 2+ Normal ANNE ALEXANDER RN - 07/13/2014 20:48 CDT Skin Color : Normal for ethnicity Skin Description : Dry Skin Temperature : Warm Activity Tolerance : Without distress ANNE ALEXANDER RN - 07/13/2014 20:48 CDT Antiembolism Device Antiembolism Device : Sequential Compression Device Antiembolism Device Laterality : Bilateral Antiembolism Device Removal Reason : Activity, Patient refused Antiembolism Device Status : Off ANNE ALEXANDER RN - 07/13/2014 20:48 CDT Neurological Neuro Patient Stated Symptoms : None Orientation : Oriented x 3 Level of Consciousness : Alert Gait : Steady Swallowing Difficulty/Aspiration Risk : None ANNE ALEXANDER RN - 07/13/2014 20:48 CDT Psycho/Emotional Affect/Behavior : Calm, Cooperative, Appropriate Pain Symptoms : No ANNE ALEXANDER RN - 07/13/2014 20:48 CDT Coping Grid Identifies effective strategies : Yes Uses effective strategies : Yes Reports increase in psychological comfort : Yes Indicates sense of control : Yes Stressors perceived within control : Yes Stable mood with appropriate affect : Yes Behaviors indicate use of coping mechanism : Yes Family supportive and involved in care : Yes Values/Beliefs incorporated appropriately : Yes ANNE ALEXANDER RN - 07/13/2014 20:48 CDT Safety Grid Vision, Hearing, Mobility Adequate to Meet Safety Needs : Yes ANNE ALEXANDER RN - 07/13/2014 20:48 CDT Gastrointestinal GI Patient Stated Symptoms : None Abdomen Description : Incision/Open wound, Symmetric Abdomen Palpation : Soft Bowel Movement Last Date : 07/12/2014 CDT Bowel Sounds All Quadrants : Present Passing Flatus : Yes ANNE ALEXANDER RN - 07/13/2014 20:48 CDT Genitourinary Patient Stated Symptoms : None Urinary Elimination : Voiding, no difficulties Urine Color : Yellow Urine Description : Clear ANNE ALEXANDER RN - 07/13/2014 20:48 CDT Integumentary Integumentary Patient Stated Symptoms : None Skin Turgor : Elastic Skin Integrity : Not intact Mucous Membrane Color : [place] Mucous Membrane Description : Moist ANNE ALEXANDER RN - 07/13/2014 20:48 CDT Bar Assistant Integumentary - Grid Bar Assistant : Sequential Compression Device ANNE ALEXANDER RN - 07/13/2014 20:48 CDT Skin Color : Normal for ethnicity Skin Description : Dry Skin Temperature : Warm ANNE ALEXANDER RN - 07/13/2014 20:48 CDT Incision/Wound Incision/Wound Care Grid Activity : Assessed, Dressing intact Assessed, Dressing intact Assessed, Dressing intact Assessed Type : Surgical incision Surgical incision Surgical incision Other: yasmeen pad Location : Abdomen Abdomen Abdomen Vagina Laterality : Other: Right #1 Central Other: Left #3 Drainage : None None None Bloody Drainage Amount : Scant ANNE ALEXANDER RN - 07/13/2014 20:48 CDT ANNE ALEXANDER RN - 07/13/2014 20:48 CDT ANNE ALEXANDER RN - 07/13/2014 20:48 CDT ANNE ALEXANDER RN - 07/13/2014 20:48 CDT Musculoskeletal Musculoskeletal Patient Stated Symptoms : None Activity Tolerance : Without distress ANNE ALEXANDER RN - 07/13/2014 20:48 CDT Peripheral IV Peripheral IV Assess/Intervention Grid Peripheral IV #1 IV Activity : Assessment, Saline lock Number of Attempts : 1 Date of Insertion : 07/12/2014 CDT IV Site : Hand Laterality : Left Catheter Size : 18 Catheter Type : Protective Primary Tubing Changed : 07/12/2014 CDT ANNE ALEXANDER RN - 07/13/2014 20:48 CDT Hendrich II Fall Risk Confusion/Disorientation Hendrich : No Depression Fall Risk Hendrich : No Altered Elimination Fall Risk Hendrich : No Dizziness/Vertigo Fall Risk Hendrich : No Gender, Male Fall Risk Hendrich : No Prescribed Antiepileptics Hendrich : No Prescribed Benzodiazepines Hendrich : No Rising From Chair Fall Risk Hendrich : Able to rise in a single movement, no loss of balance with steps Fall Risk Score Hendrich II : 0 ANNE ALEXANDER RN - 07/13/2014 20:48 CDT Safe Patient Handling Safe Pt Handling Independent : Yes - No equipment needed Safe Pt Handling Equipment Rec : No Equipment Needed ANNE ALEXANDER RN - 07/13/2014 20:48 CDT Education General Patient Education [employer] Topics : Activity limitations/expectations, Equipment, Medication generic/brand names, purpose, action, Pain Management, Plan of care, Safety, fall, Unit procedures, Use of pain scale(s) Individuals Taught : Patient Barriers to Learning : None evident Teaching Method : Explanation Teaching Evaluation : Verbalizes understanding ANNE ALEXANDER RN - 07/13/2014 20:48 CDT [facility] [employer] Document Id: [id number] CDT!133 Miscellaneous - Joycelyn Angeles R.N. - 07/13/2014 5:00 PM CDT Adult Activities of Daily Living Adult Activities of Daily Living Entered On: 07/13/2014 17:51 CDT Performed On: 07/13/2014 17:00 CDT by JOYCELYN ANGELES RN ADLs I Activity Status ADL : Ambulating in tse, Ambulating in room Activity Assistance : Independent JOYCELYN ANGELES RN - 07/13/2014 17:51 CDT ADLs II Elimination Assistance Offered Q2H : Independent Bowel Movement Last Date : 07/12/2014 CDT Standard Safety : Bed in low position, Call device within reach, ID band check, Non-Slip footwear, Rounds every 1 hour, Upper/Half-length side-rails up, Wheels locked JOYCELYN ANGELES RN - 07/13/2014 17:51 CDT ADLs Adult Nutrition Diet Type : Diet -- 07/12/14 12:13:00 CDT, Transition, transition to regular as tolerated JOYCELYN ANGELES RN - 07/13/2014 17:51 CDT Source: [employer] Document Id: [id number] CDT!10 Miscellaneous - Joycelyn Angeles RChoco - 07/13/2014 4:30 PM CDT Adult Ongoing Assessment Adult Ongoing Assessment Entered On: 07/13/2014 17:32 CDT Performed On: 07/13/2014 16:30 CDT by JOYCELYN ANGELES RN Respiratory Respiratory Patient Stated Symptoms : None Respirations : Unlabored Respiratory Pattern : Regular All Lobes Breath Sounds : Clear Cough and Deep Breathe : Done Cough : None JOYCELYN ANGELES RN - 07/13/2014 17:31 CDT Cardiovascular CV Patient Stated Symptoms : None Heart Rhythm : Regular Antiembolism Device Yes/No : No Nail Bed Color : [place] Capillary Refill : Less than 2 seconds Edema Assessment : No JOYCELYN ANGELES RN - 07/13/2014 17:31 CDT Pulses Grid Dorsalis Pedis Pulse, Left : 2+ Normal Dorsalis Pedis Pulse, Right : 2+ Normal JOYCELYN ANGELES RN - 07/13/2014 17:31 CDT Skin Color : Normal for ethnicity Skin Description : Dry Skin Temperature : Warm JOYCELYN ANGELES RN - 07/13/2014 17:31 CDT Neurological Neuro Patient Stated Symptoms : None Orientation : Oriented x 3 Level of Consciousness : Alert Gait : Steady Swallowing Difficulty/Aspiration Risk : None JOYCELYN ANGELES 07/13/2014 17:31 CDT Psycho/Emotional Affect/Behavior : Calm, Cooperative, Appropriate Pain Symptoms : Yes JOYCELYN ANGELES 07/13/2014 17:31 CDT Pain Scale Pain Scale Verbal 0-10 : Open JOYCELYN ANGELES 07/13/2014 17:31 CDT Pain Pain Assessment Grid Pain 1 Location : Abdomen Laterality : Bilateral Intensity : 8 JOYCELYN ANGELES 07/13/2014 17:31 CDT Gastrointestinal GI Patient Stated Symptoms : None Abdomen Palpation : Non-Tender, Soft Bowel Movement Last Date : 07/12/2014 CDT Bowel Sounds All Quadrants : Present JOYCELYN ANGELES 07/13/2014 17:46 CDT Nutrition Eating Difficulties : None Appetite : Good JOYCELYN ANGELES 07/13/2014 17:46 CDT Genitourinary Patient Stated Symptoms : None Urinary Elimination : Voiding, no difficulties JOYCELYN ANGELES 07/13/2014 17:46 CDT Integumentary Integumentary Patient Stated Symptoms : None Skin Turgor : Elastic Skin Integrity : Not intact Mucous Membrane Color : [place] Mucous Membrane Description : Moist JOYCELYN ANGELES 07/13/2014 17:46 CDT Bar Assistant Integumentary - Grid Bar Assistant : Sequential Compression Device JOYCELYN ANGELES 07/13/2014 17:46 CDT Skin Color : Normal for ethnicity Skin Description : Dry Skin Temperature : Warm JOYCELYN ANGELES 07/13/2014 17:46 CDT Incision/Wound Incision/Wound Care Grid Activity : Assessed, Dressing intact Assessed, Dressing intact Assessed, Dressing intact Assessed Type : Surgical incision Surgical incision Surgical incision Other: yasmeen pad Location : Abdomen Abdomen Abdomen Vagina Laterality : Other: Right #1 Central Other: Left #3 Drainage : None None None None JOYCELYN ANGELES 07/13/2014 17:46 CDT JOYCELYN ANGELES 07/13/2014 17:46 CDT JOYCELYN ANGELES 07/13/2014 17:46 CDT JOYCELYN ANGELES 07/13/2014 17:46 CDT Koby Sensory Perception Koby : No impairment Moisture Koby : Rarely moist Activity Koby : Walks frequently Mobility Koby : No limitations Nutrition Koby : Excellent Friction and Shear Koby : Potential problem Koby Score : 22 JOYCELYN ANGELES RN - 07/13/2014 17:46 CDT Musculoskeletal Musculoskeletal Patient Stated Symptoms : None Activity Tolerance : Without distress JOYCELYN ANGELES RN - 07/13/2014 17:46 CDT Peripheral IV Peripheral IV Assess/Intervention Grid Peripheral IV #1 IV Activity : Assessment, Saline lock Number of Attempts : 1 Date of Insertion : 07/12/2014 CDT IV Site : Hand Laterality : Left Catheter Size : 18 Catheter Type : Protective Site Condition : No complications Primary Tubing Changed : 07/12/2014 CDT JOYCELYN ANGELES RN - 07/13/2014 17:46 CDT Hendrich II Fall Risk Confusion/Disorientation Hendrich : No Depression Fall Risk Hendrich : No Altered Elimination Fall Risk Hendrich : No Dizziness/Vertigo Fall Risk Hendrich : No Gender, Male Fall Risk Hendrich : No Prescribed Antiepileptics Hendrich : No Prescribed Benzodiazepines Hendrich : No Rising From Chair Fall Risk Hendrich : Able to rise in a single movement, no loss of balance with steps Fall Risk Score Hendrich II : 0 JOYCELYN ANGELES RN - 07/13/2014 17:46 CDT Safe Patient Handling Safe Pt Handling Independent : Yes - No equipment needed Safe Pt Handling Equipment Rec : No Equipment Needed JOYCELYN ANGELES RN - 07/13/2014 17:46 CDT Education General Patient Education Power[employer] Topics : Activity limitations/expectations, Disease process, Individual plan for pain management, Medication dosage, route, scheduling, Plan of care, Safety, fall, Turn/Cough/Deep breathing, Unit procedures, Use of pain scale(s) Individuals Taught : Patient Barriers to Learning : Acuity of Illness Teaching Method : Explanation, Printed materials Teaching Evaluation : Verbalizes understanding JOYCELYN ANGELES RN - 07/13/2014 17:46 CDT Source: [employer] Document Id: [id number] CDT!130 Miscellaneous - Yvonne Torres R.N. - 07/13/2014 12:20 PM CDT Neurovascular Assessment Lower Extremity Neurovascular Assessment Lower Extremity Entered On: 07/13/2014 13:03 CDT Performed On: 07/13/2014 12:20 CDT by YVONNE TORRES RN Lower Extremity Nail Bed Color Feet Grid Left Foot : [place] Right Foot : [place] YVONNE TORRES RN - 07/13/2014 13:03 CDT Capillary Refill Feet Grid Left Foot : < 2 seconds Right Foot : < 2 seconds YVONNE TORRES RN - 07/13/2014 13:03 CDT NV Lower Extremity Color Grid Left : [place] Right : [place] YVONNE TORRES RN - 07/13/2014 13:03 CDT NV Lower Extremity Temperature Grid Left : Warm Right : Warm YVONNE TORRES RN - 07/13/2014 13:03 CDT Lower Extremity Peripheral Pulses Grid Dorsalis Pedis Pulse, Left : 2+ Normal Dorsalis Pedis Pulse, Right : 2+ Normal YVONNE TORRES RN - 07/13/2014 13:03 CDT Effected Lower Extremity Pain : Controlled with medications, Within expected range Pain With Passive Flexion LE : None Pain With Passive Extension LE : None Muscle Tension LE : Not applicable YVONNE TORRES RN - 07/13/2014 13:03 CDT Source: [employer] Document Id: [id number] CDT!21 Miscellaneous - Yvonne Torres R.N. - 07/13/2014 12:20 PM CDT Adult Ongoing Assessment Adult Ongoing Assessment Entered On: 07/13/2014 13:07 CDT Performed On: 07/13/2014 12:20 CDT by YVONNE TORRES RN Respiratory Respiratory Patient Stated Symptoms : None Incentive Spirometry Volume Achieved : 2,500 mL Respirations : Unlabored Respiratory Pattern : Regular All Lobes Breath Sounds : Clear Cough and Deep Breathe : Done Cough : Able to clear secretions, Fair, Non-Productive, Spontaneous Sputum Amount : None Suction : None Airway : Patent YVONNE TORRES RN - 07/13/2014 13:04 CDT Cardiovascular CV Patient Stated Symptoms : None Heart Rhythm : Regular Heart Sounds ICU : S1S2 Antiembolism Device Yes/No : Yes YVONNE TORRES RN - 07/13/2014 13:04 CDT Antiembolism Device Antiembolism Device : Sequential Compression Device Antiembolism Device Laterality : Bilateral Antiembolism Device Removal Reason : Activity Compression Stockings : Knee High Antiembolism Device Status : Off YVONNE TORRES - 07/13/2014 13:04 CDT Neurological Neuro Patient Stated Symptoms : None Orientation : Oriented x 3 Level of Consciousness : Alert Gait : Steady Swallowing Difficulty/Aspiration Risk : None YVONNE TORRES - 07/13/2014 13:04 CDT Psycho/Emotional Affect/Behavior : Calm, Cooperative, Appropriate Pain Symptoms : Yes Feels Rested : Yes YVONNE TORRES - 07/13/2014 13:04 CDT Safety Grid Vision, Hearing, Mobility Adequate to Meet Safety Needs : Yes YVONNE TORRES - 07/13/2014 13:04 CDT Pain Scale Pain Scale Verbal 0-10 : Open YVONNE TORRES - 07/13/2014 13:04 CDT Pain Pain Assessment Grid Pain 1 Location : Abdomen Laterality : Bilateral Intensity : 7 YVONNE TORRES - 07/13/2014 13:04 CDT Gastrointestinal GI Patient Stated Symptoms : Abdominal pain Abdomen Description : Flat, Symmetric Abdomen Palpation : Soft, Tender Tenderness : All quadrants Bowel Movement Last Date : 07/12/2014 CDT Bowel Sounds All Quadrants : Present Passing Flatus : Yes YVONNE TORRES - 07/13/2014 13:04 CDT Nutrition Eating Difficulties : None Appetite : Good Nutrition Risk Factors by History Adult : None YVONNE TORRES - 07/13/2014 13:04 CDT Genitourinary Urinary Elimination : Voiding, no difficulties Bladder Distention : Absent YVONNE TORRES - 07/13/2014 13:04 CDT Integumentary Integumentary Patient Stated Symptoms : None Skin Turgor : Elastic Skin Integrity : Not intact Mucous Membrane Color : [place] Mucous Membrane Description : Moist YVONNE TORRES ELIO - 07/13/2014 13:04 CDT Bar Assistant Integumentary - Grid Bar Assistant : Sequential Compression Device Assessment/Action : Removed Skin Appearance : Normal YVONNE TORRES - 07/13/2014 13:04 CDT Incision/Wound Incision/Wound Care Grid Activity : Assessed, Dressing intact Assessed, Dressing intact Assessed, Dressing intact Assessed Type : Surgical incision Surgical incision Surgical incision Other: yasmeen pad Location : Abdomen Abdomen Abdomen Vagina Laterality : Other: Right #1 Central Other: Left #3 Drainage : None None None Serosanguineous Drainage Amount : Scant Surrounding Tissue : Dry, Intact Dry, Intact Dry, Intact Dry, Intact Wound Dressing : Gauze bandage, Transparent dressing Gauze bandage, Transparent dressing Gauze bandage, Transparent dressing Neurovascular Status : Neurovascular intact distal to injury Neurovascular intact distal to injury Neurovascular intact distal to injury YVONNE TORRES RN - 07/13/2014 13:04 CDT YVONNE TORRES RN - 07/13/2014 13:04 CDT YVONNE TORRES RN - 07/13/2014 13:04 CDT YVONNE TORRES RN - 07/13/2014 13:04 CDT Peripheral IV Peripheral IV Assess/Intervention Grid Peripheral IV #1 IV Activity : Assessment, Saline lock Number of Attempts : 1 Date of Insertion : 07/12/2014 CDT IV Site : Hand Laterality : Left Catheter Size : 18 Catheter Type : Protective Site Condition : No complications Drainage Description : None Infiltration Score : 0 Phlebitis Score : 0 Primary Tubing Changed : 07/12/2014 CDT Dressing/ Activity : Dry, Intact, Transparent YVONNE TORRES RN - 07/13/2014 13:04 CDT Source: [employer] Document Id: [id number] CDT!121 Miscellaneous - Yvonne Torres R.N. - 07/13/2014 10:45 AM CDT Adult Activities of Daily Living Adult Activities of Daily Living Entered On: 07/13/2014 11:02 CDT Performed On: 07/13/2014 10:45 CDT by YVONNE TORRES RN ADLs I Activity Assistance : Stand-by assistance Assistive Device : None Antiembolism Device : Sequential Compression Device Antiembolism Device Laterality : Bilateral Antiembolism Device Removal Reason : Activity Range of Motion LUE : Active Range of Motion RUE : Active Range of Motion LLE : Active Range of Motion RLE : Active Ambulation Distance : 0 m(Converted to: 0 ft 0 inch(es), 0 cm) (Comment: AMBULATING IN ROOM. TO SHOWER ROOM, BACK TO BED [YVONNE TORRES RN - 07/13/2014 11:04 CDT] ) Ambulation Patient Effort : Good YVONNE TORRES RN - 07/13/2014 11:04 CDT ADLs II Hygiene Assistance Grid Hair Care : Independent Oral Care : Independent Yasmeen Care : Independent Shower : Independent YVONNE TORRES RN - 07/13/2014 11:02 CDT Elimination Assistance Offered Q2H : Independent Bowel Movement Last Date : 07/12/2014 CDT YVONNE TORRES RN - 07/13/2014 11:02 CDT Source: [employer] Document Id: [id number] CDT!13 Miscellaneous - Yvonne Torres R.N. - 07/13/2014 8:15 AM CDT Neurovascular Assessment Lower Extremity Neurovascular Assessment Lower Extremity Entered On: 07/13/2014 8:16 CDT Performed On: 07/13/2014 8:15 CDT by YVONNE TORRES RN Lower Extremity Nail Bed Color Feet Grid Left Foot : [place] Right Foot : [place] YVONNE TORRES RN - 07/13/2014 8:15 CDT Capillary Refill Feet Grid Left Foot : < 2 seconds Right Foot : < 2 seconds YVONNE TORRES RN - 07/13/2014 8:15 CDT NV Lower Extremity Color Grid Left : [place] Right : [place] YVONNE TORRES RN - 07/13/2014 8:15 CDT NV Lower Extremity Temperature Grid Left : Warm Right : Warm YVONNE TORRES RN - 07/13/2014 8:15 CDT Lower Extremity Peripheral Pulses Grid Dorsalis Pedis Pulse, Left : 2+ Normal Dorsalis Pedis Pulse, Right : 2+ Normal YVONNE TORRES RN - 07/13/2014 8:15 CDT Effected Lower Extremity Pain : Controlled with medications Pain With Passive Flexion LE : None Pain With Passive Extension LE : None Muscle Tension LE : Not applicable YVONNE TORRES RN - 07/13/2014 8:15 CDT Source: [employer] Document Id: [id number] CDT!21 Miscellaneous - Yvonne Torres R.N. - 07/13/2014 8:15 AM CDT Adult Ongoing Assessment Adult Ongoing Assessment Entered On: 07/13/2014 8:40 CDT Performed On: 07/13/2014 8:15 CDT by YVONNE TORRES RN Respiratory Respiratory Patient Stated Symptoms : None Incentive Spirometry Volume Achieved : 2,500 mL Respirations : Unlabored Respiratory Pattern : Regular All Lobes Breath Sounds : Clear Cough and Deep Breathe : Done Cough : Able to clear secretions, Fair, Non-Productive, Spontaneous Sputum Amount : None Suction : None Airway : Patent YVONNE TORRES RN - 07/13/2014 8:33 CDT Cardiovascular CV Patient Stated Symptoms : None Heart Rhythm : Regular Heart Sounds ICU : S1S2 Antiembolism Device Yes/No : Yes Nail Bed Color : [place] Capillary Refill : Less than 2 seconds Edema Assessment : No Pacer : No YVONNE TORRES RN - 07/13/2014 8:33 CDT Pulses Grid Radial Pulse, Left : 2+ Normal Radial Pulse, Right : 2+ Normal Dorsalis Pedis Pulse, Left : 2+ Normal Dorsalis Pedis Pulse, Right : 2+ Normal YVONNE TORRES RN - 07/13/2014 8:33 CDT Skin Color : Normal for ethnicity Skin Description : Normal Skin Temperature : Warm Activity Tolerance : Minimal distress YVONNE TORRES RN - 07/13/2014 8:33 CDT Antiembolism Device Antiembolism Device : Sequential Compression Device Antiembolism Device Laterality : Bilateral Antiembolism Device Removal Reason : Activity Compression Stockings : Knee High Antiembolism Device Status : Off YVONNE TORRES RN - 07/13/2014 8:33 CDT Neurological Neuro Patient Stated Symptoms : Weakness Orientation : Oriented x 3 Level of Consciousness : Alert Swallowing Difficulty/Aspiration Risk : None YVONNE TORRES RN - 07/13/2014 8:33 CDT Psycho/Emotional Affect/Behavior : Calm, Cooperative, Appropriate Pain Symptoms : Yes Feels Rested : Yes YVONNE TORRES RN 07/13/2014 8:33 CDT Coping Grid Identifies effective strategies : Yes Uses effective strategies : Yes Reports increase in psychological comfort : Yes Indicates sense of control : Yes Stressors perceived within control : Yes Stable mood with appropriate affect : Yes Behaviors indicate use of coping mechanism : Yes Family supportive and involved in care : Yes Values/Beliefs incorporated appropriately : Yes YVONNE TORRES - 07/13/2014 8:33 CDT Safety Grid Vision, Hearing, Mobility Adequate to Meet Safety Needs : Yes YVONNE TORRES 07/13/2014 8:33 CDT Pain Scale Pain Scale Verbal 0-10 : Open YVONNE TORRES - 07/13/2014 8:33 CDT Effects of Pain Grid Appetite : Mild Concentration : Mild Daily Life : Mild Sleep : Mild YVONNE TORRES 07/13/2014 8:33 CDT Pain Pain Assessment Grid Pain 1 Location : Abdomen Laterality : Bilateral Intensity : 8 YVONNE TORRES 07/13/2014 8:33 CDT Gastrointestinal GI Patient Stated Symptoms : Abdominal pain Abdomen Description : Flat, Symmetric Abdomen Palpation : Soft, Tender Tenderness : All quadrants Bowel Movement Last Date : 07/12/2014 CDT Bowel Sounds All Quadrants : Present Passing Flatus : Yes YVONNE TORRES - 07/13/2014 8:33 CDT Nutrition Eating Difficulties : None Appetite : Good Nutrition Risk Factors by History Adult : None YVONNE TORRES 07/13/2014 8:33 CDT Genitourinary Patient Stated Symptoms : None Urinary Elimination : Other: VALLADARES CATHETER DISCONTINUED THIS AM. NO VOID YET. Bladder Distention : Absent YVONNE TORRES - 07/13/2014 8:33 CDT Integumentary Integumentary Patient Stated Symptoms : None Skin Turgor : Elastic Skin Integrity : Not intact Mucous Membrane Color : [place] Mucous Membrane Description : Moist YVONNE TORRES - 07/13/2014 8:33 CDT Bar Assistant Integumentary - Grid Bar Assistant : Sequential Compression Device Assessment/Action : Removed Skin Appearance : Normal YVONNE TORRES 07/13/2014 8:33 CDT Skin Color : Normal for ethnicity Skin Description : Normal Skin Temperature : Warm YVONNE TORRES - 07/13/2014 8:33 CDT Incision/Wound Incision/Wound Care Grid Activity : Assessed, Dressing intact Assessed, Dressing intact Assessed, Dressing intact Assessed Type : Surgical incision Surgical incision Surgical incision Other: yasmeen pad Location : Abdomen Abdomen Abdomen Vagina Laterality : Other: Right #1 Central Other: Left #3 Drainage : None None None Serosanguineous Drainage Amount : Scant Surrounding Tissue : Dry, Intact Dry, Intact Dry, Intact Dry, Intact Wound Dressing : Gauze bandage, Transparent dressing Gauze bandage, Transparent dressing Gauze bandage, Transparent dressing Neurovascular Status : Neurovascular intact distal to injury Neurovascular intact distal to injury Neurovascular intact distal to injury NARCISO TORRESLE Riley - 07/13/2014 8:33 CDT YVONNE TORRES [facility] 07/13/2014 8:33 CDT YVONNE TORRES [facility] - 07/13/2014 8:33 CDT YVONNE TORRES [facility] - 07/13/2014 8:33 CDT Koby Sensory Perception Koby : No impairment Moisture Koby : Rarely moist Activity Koby : Walks occasionally Mobility Koby : Slightly limited Nutrition Koby : Adequate Friction and Shear Koby : No apparent problem Koby Score : 20 LILY YVONNE [facility] 07/13/2014 8:33 CDT Musculoskeletal Musculoskeletal Patient Stated Symptoms : None Activity Tolerance : Without distress YVONNE TORRES - 07/13/2014 8:33 CDT Musculoskeletal Strength Grid Left Upper Extremity Right Upper Extremity Left Lower Extremity Right Lower Extremity Strength : Strong to gravity and resistance Strong to gravity and resistance Strong to gravity and resistance Strong to gravity and resistance Sensation : Normal Normal Normal Normal NARCISO TORRESLE [facility] - 07/13/2014 8:33 CDT YVONNE TORRES [facility] 07/13/2014 8:33 CDT YVONNE TORRES [facility] - 07/13/2014 8:33 CDT YVONNE TORRES [facility] 07/13/2014 8:33 CDT Peripheral IV Peripheral IV Assess/Intervention Grid Peripheral IV #1 IV Activity : Assessment Number of Attempts : 1 Date of Insertion : 07/12/2014 CDT IV Site : Hand Laterality : Left Catheter Size : 18 Catheter Type : Protective Site Condition : No complications Drainage Description : None Infiltration Score : 0 Phlebitis Score : 0 Primary Tubing Changed : 07/12/2014 CDT Dressing/ Activity : Dry, Intact, Transparent Flow/ Patency : No complications YVONNE TORRES - 07/13/2014 8:33 CDT Hendrich II Fall Risk Confusion/Disorientation Hendrich : No Depression Fall Risk Hendrich : No Altered Elimination Fall Risk Hendrich : No Dizziness/Vertigo Fall Risk Hendrich : No Gender, Male Fall Risk Hendrich : No Prescribed Antiepileptics Hendrich : No Prescribed Benzodiazepines Hendrich : No Rising From Chair Fall Risk Hendrich : Multiple attempts but successful Fall Risk Score Hendrich II : 3 YVONNE TORRES RN - 07/13/2014 8:33 CDT Safe Patient Handling Safe Pt Handling Independent : Yes - No equipment needed Safe Pt Handling Equipment Rec : No Equipment Needed Repositioning Device Recommended : No YVONNE TORRES RN - 07/13/2014 8:33 CDT Education General Patient Education [employer] Topics : Activity limitations/expectations, Equipment, Medication dosage, route, scheduling, Medication generic/brand names, purpose, action, Nutrition/Diet, Pain Management, Plan of care, Safety, fall, Turn/Cough/Deep breathing, Use of pain scale(s) Individuals Taught : Patient Barriers to Learning : None evident Teaching Method : Explanation Teaching Evaluation : Verbalizes understanding YVONNE TORRES RN - 07/13/2014 8:33 CDT Source: [employer] Document Id: [id number] CDT!199 Miscellaneous - Yvonne Torres R.N. - 07/13/2014 8:05 AM CDT Adult Activities of Daily Living Adult Activities of Daily Living Entered On: 07/13/2014 8:32 CDT Performed On: 07/13/2014 8:05 CDT by YVONNE TORRES RN ADLs I Patient Position : Supine Antiembolism Device : Sequential Compression Device Antiembolism Device Laterality : Bilateral Antiembolism Device Removal Reason : Activity Range of Motion LUE : Active Range of Motion RUE : Active Range of Motion LLE : Active Range of Motion RLE : Active YVONNE TORRES RN - 07/13/2014 8:32 CDT ADLs II Elimination Assistance Offered Q2H : Offered/Declined Bowel Movement Last Date : 07/12/2014 CDT Standard Safety : TABATHA/SCD/HERMAN on per policy, Bed in low position, Call device within reach, ID band check, Non-Slip footwear, Rounds every 1 hour, Upper/Half- length side-rails up, Wheels locked YVONNE TORRES RN - 07/13/2014 8:32 CDT Source: [employer] Document Id: [id number] CDT!14 Eliana Marquez R.N. - 07/13/2014 4:27 AM CDT Neurovascular Assessment Lower Extremity Neurovascular Assessment Lower Extremity Entered On: 07/13/2014 4:28 CDT Performed On: 07/13/2014 4:27 CDT by ELIANA OSORIO RN Lower Extremity Nail Bed Color Feet Grid Left Foot : [place] Right Foot : [place] ELIANA OSORIO RN - 07/13/2014 4:27 CDT Capillary Refill Feet Grid Left Foot : < 2 seconds Right Foot : < 2 seconds ELIANA OSORIO RN - 07/13/2014 4:27 CDT NV Lower Extremity Color Grid Left : [place] Right : [place] ELIANA OSORIO RN - 07/13/2014 4:27 CDT NV Lower Extremity Temperature Grid Left : Warm Right : Warm ELIANA OSORIO RN - 07/13/2014 4:27 CDT Lower Extremity Peripheral Pulses Grid Dorsalis Pedis Pulse, Left : 2+ Normal Dorsalis Pedis Pulse, Right : 2+ Normal ELIANA OSORIO RN - 07/13/2014 4:27 CDT Effected Lower Extremity Pain : Controlled with medications ELIANA OSORIO RN - 07/13/2014 4:27 CDT Source: [employer] Document Id: [id number] CDT!18 Eliana Marquez R.N. - 07/13/2014 12:30 AM CDT Neurovascular Assessment Lower Extremity Neurovascular Assessment Lower Extremity Entered On: 07/13/2014 0:30 CDT Performed On: 07/13/2014 0:30 CDT by ELIANA OSORIO RN Lower Extremity Nail Bed Color Feet Grid Left Foot : [place] Right Foot : [place] ELIANA OSORIO RN - 07/13/2014 0:28 CDT Capillary Refill Feet Grid Left Foot : < 2 seconds Right Foot : < 2 seconds ELIANA OSORIO RN - 07/13/2014 0:28 CDT NV Lower Extremity Color Grid Left : [place] Right : [place] ELIANA OSORIO RN - 07/13/2014 0:28 CDT NV Lower Extremity Temperature Grid Left : Warm Right : Warm ELIANA OSORIO RN - 07/13/2014 0:28 CDT Lower Extremity Peripheral Pulses Grid Dorsalis Pedis Pulse, Left : 2+ Normal Dorsalis Pedis Pulse, Right : 2+ Normal ELIANA OSORIO RN - 07/13/2014 0:28 CDT Source: [employer] Document Id: [id number] CDT!17 Miscellaneous - Eliana Osorio R.N. - 07/13/2014 12:20 AM CDT Adult Activities of Daily Living Adult Activities of Daily Living Entered On: 07/13/2014 0:29 CDT Performed On: 07/13/2014 0:20 CDT by ELIANA OSORIO RN ADLs I Patient Position : Supine ELIANA OSORIO RN - 07/13/2014 0:28 CDT ADLs II Bowel Movement Last Date : 07/12/2014 CDT Standard Safety : TABATHA/SCD/HERMAN on per policy, Bed in low position, Call device within reach, Night light, Non-Slip footwear, Rounds every 2 hours, Upper/Half- length side-rails up, Wheels locked ELIANA OSORIO RN - 07/13/2014 0:28 CDT ADLs Adult Nutrition Diet Type : Diet -- 07/12/14 12:13:00 CDT, Transition, transition to regular as tolerated ELIANA OSORIO RN - 07/13/2014 0:28 CDT Source: [employer] Document Id: [id number] CDT!8 Miscellaneous - Eliana Osorio R.N. - 07/13/2014 12:05 AM CDT Adult Ongoing Assessment Adult Ongoing Assessment Entered On: 07/13/2014 3:12 CDT Performed On: 07/13/2014 0:05 CDT by ELIANA OSORIO RN Respiratory Respiratory Patient Stated Symptoms : None Respirations : Unlabored Respiratory Pattern : Regular All Lobes Breath Sounds : Clear Cough and Deep Breathe : Done Cough : None Sputum Amount : None Suction : None Airway : Patent ELIANA OSORIO RN - 07/13/2014 3:06 CDT Cardiovascular CV Patient Stated Symptoms : None Heart Rhythm : Regular Antiembolism Device Yes/No : Yes Nail Bed Color : [place] Capillary Refill : Less than 2 seconds Edema Assessment : No ELIANA OSORIO RN - 07/13/2014 3:06 CDT Pulses Grid Dorsalis Pedis Pulse, Left : 2+ Normal Dorsalis Pedis Pulse, Right : 2+ Normal ELIANA OSORIO RN - 07/13/2014 3:06 CDT Skin Color : Normal for ethnicity Skin Description : Normal Skin Temperature : Warm ELIANA OSORIO RN - 07/13/2014 3:06 CDT Antiembolism Device Antiembolism Device : Sequential Compression Device Antiembolism Device Laterality : Bilateral Antiembolism Device Status : On ELIANA OSORIO RN - 07/13/2014 3:06 CDT Neurological Neuro Patient Stated Symptoms : None Orientation : Oriented x 3 Level of Consciousness : Alert Swallowing Difficulty/Aspiration Risk : None ELIANA OSORIO RN - 07/13/2014 3:06 CDT Psycho/Emotional Affect/Behavior : Calm, Cooperative, Appropriate Pain Symptoms : Yes ELIANA OSORIO RN - 07/13/2014 3:06 CDT Coping Grid Identifies effective strategies : Yes Uses effective strategies : Yes Reports increase in psychological comfort : Yes Indicates sense of control : Yes Stressors perceived within control : Yes Stable mood with appropriate affect : Yes Behaviors indicate use of coping mechanism : Yes Family supportive and involved in care : Yes ELIANA OSORIO RN - 07/13/2014 3:06 CDT Safety Grid Vision, Hearing, Mobility Adequate to Meet Safety Needs : Yes LEIANA OSORIO RN - 07/13/2014 3:06 CDT Pain Scale Pain Scale Verbal 0-10 : Open ELIANA OSORIO Pamela - 07/13/2014 3:06 CDT Pain Pain Assessment Grid Pain 1 Location : Abdomen Intensity : 7 Quality : Cramping Alleviating Factors : Medication, Moist heat, Repositioning Associated Symptoms : None Interventions : Heat, Medications, Repositioning ELIANA OSORIO Pamela - 07/13/2014 3:06 CDT Gastrointestinal GI Patient Stated Symptoms : None Abdomen Description : Flat Abdomen Palpation : Non-Tender, Soft Bowel Movement Last Date : 07/12/2014 CDT Bowel Sounds All Quadrants : Present Passing Flatus : Yes ELIANA OSORIO Pamela - 07/13/2014 3:06 CDT Genitourinary Patient Stated Symptoms : None Urinary Elimination : Urinary catheter Urine Color : Yellow Urine Description : Clear Urine Odor : Odorless ELIANA OSORIO Pamela - 07/13/2014 3:06 CDT Urinary Catheter Details Urinary Catheter Clinical Indication : Perioperative management Continued Need for Urinary Catheter : Yes Catheter discontinued : No SHARIF ELIANA Santiago - 07/13/2014 3:06 CDT Integumentary Integumentary Patient Stated Symptoms : None Skin Turgor : Elastic Skin Integrity : Not intact Mucous Membrane Color : [place] Mucous Membrane Description : Moist ELIANA OSORIO Pamela - 07/13/2014 3:06 CDT Bar Assistant Integumentary - Grid Bar Assistant : Sequential Compression Device Assessment/Action : Repositioned Skin Appearance : Normal ELIANA OSORIO Pamela - 07/13/2014 3:06 CDT Incision/Wound Incision/Wound Care Grid Activity : Assessed, Dressing intact Assessed, Dressing intact Assessed, Dressing intact Assessed, Dressing intact Type : Surgical incision Surgical incision Surgical incision Other: yasmeen pad Location : Abdomen Abdomen Abdomen Vagina Laterality : Other: Right #1 Central Other: Left #3 Drainage : None None None None Neurovascular Status : Neurovascular intact distal to injury, Pulses distal to injury palpable, Skindistal to injury warm and pink Neurovascular intact distal to injury, Pulses distal to injury palpable, Skin distal to injury warm and pink Neurovascular intact distal to injury, Pulses distal to injury palpable, Skin distal to injury warm and pink Neurovascular intact distal to injury, Pulses distal to injury palpable, Skin distal to injury warm and pink ELIANA OSORIO - 07/13/2014 3:06 CDT ELIANA OSORIO [facility] 07/13/2014 3:06 CDT ELIANA OSORIO RN - 07/13/2014 3:06 CDT ELIANA OSORIO RN - 07/13/2014 3:06 CDT Musculoskeletal Musculoskeletal Patient Stated Symptoms : None ELIANA OSORIO RN - 07/13/2014 3:06 CDT Peripheral IV Peripheral IV Assess/Intervention Grid Peripheral IV #1 IV Activity : Assessment Number of Attempts : 1 Date of Insertion : 07/12/2014 CDT IV Site : Hand Laterality : Left Catheter Size : 18 Catheter Type : Protective Site Condition : No complications Drainage Description : None Infiltration Score : 0 Phlebitis Score : 0 Primary Tubing Changed : 07/12/2014 CDT Dressing/ Activity : Dry, Intact, Transparent Flow/ Patency : No complications IV Equipment/Supplies : Regular ELIANA OSORIO RN - 07/13/2014 3:06 CDT Hendrich II Fall Risk Confusion/Disorientation Hendrich : No Depression Fall Risk Hendrich : No Altered Elimination Fall Risk Hendrich : No Dizziness/Vertigo Fall Risk Hendrich : No Gender, Male Fall Risk Hendrich : No Prescribed Antiepileptics Hendrich : No Prescribed Benzodiazepines Hendrich : No Rising From Chair Fall Risk Hendrich : Multiple attempts but successful Fall Risk Score Hendrich II : 3 ELIANA OSORIO RN - 07/13/2014 3:06 CDT Safe Patient Handling Safe Pt Handling Independent : Yes - No equipment needed Safe Pt Handling Equipment Rec : No Equipment Needed ELIANA OSORIO RN - 07/13/2014 3:06 CDT Education General Patient Education Powergrid Topics : Activity limitations/expectations, Medication dosage, route, scheduling, Plan of care, Safety, fall, Turn/Cough/Deep breathing, Unit procedures, Use of pain scale(s) Individuals Taught : Patient Barriers to Learning : None evident Teaching Method : Demonstration, Explanation Teaching Evaluation : Verbalizes understanding ELIANA OSORIO RN - 07/13/2014 3:06 CDT [facility] [employer] Document Id: [id number] CDT!156 Miscellaneous - Steff De La Cruz R.N. - 07/12/2014 11:30 PM CDT Communication Note Communication Note Entered On: 07/12/2014 23:53 CDT Performed On: 07/12/2014 23:30 CDT by STEFF DE LA CRUZ RN Communication Subject of Note : M.D. Notification Assessment Communication Note : temp now 38.0. Benadryl helped itching. Feels fine. Using I/S well. Lungs clear. Pain level about a 6. Name of provider notified : ROCCO DICKSON MD Name of provider notified d/t : 07/12/2014 23:30 CDT Response : Dr. britt Morphine--pt informed. Has Percocet and Motrin for pain. pt fine w/ this. STEFF DE LA CRUZ RN - 07/12/2014 23:51 CDT Source: [employer] Document Id: [id number] CDT!7 Miscellaneous - Steff De La Cruz R.[place] - 07/12/2014 10:25 PM CDT Communication Note Communication Note Entered On: 07/12/2014 23:27 CDT Performed On: 07/12/2014 22:25 CDT by STEFF DE LA CRUZ RN Communication Assessment Communication Note : temp 38.6, also c/o Toradol making her nauseated, stomach pain and itching. Says this happened once in ER and had to have Benadryl. Says tolerates Motrin at home. Name of provider notified : ROCCO DICKSON MD Name of provider notified d/t : 07/12/2014 22:25 CDT Response : orders entered into computer by Dr. Dickson. Will recheck temp at 2330 and call him back with report. STEFF DE LA CRUZ RN - 07/12/2014 23:24 CDT Source: [employer] Document Id: [id number] CDT!6 Miscellaneous - Steff De La Cruz R.N. - 07/12/2014 10:15 PM CDT Neurovascular Assessment Lower Extremity Neurovascular Assessment Lower Extremity Entered On: 07/12/2014 23:50 CDT Performed On: 07/12/2014 22:15 CDT by STEFF DE LA CRUZ RN Lower Extremity Nail Bed Color Feet Grid Left Foot : [place] Right Foot : [place] STEFF DE LA CRUZ RN - 07/12/2014 23:50 CDT Capillary Refill Feet Grid Left Foot : < 2 seconds Right Foot : < 2 seconds STEFF DE LA CRUZ RN - 07/12/2014 23:50 CDT NV Lower Extremity Color Grid Left : [place] Right : [place] STEFF DE LA CRUZ RN - 07/12/2014 23:50 CDT NV Lower Extremity Temperature Grid Left : Warm Right : Warm STEFF DE LA CRUZ RN - 07/12/2014 23:50 CDT Lower Extremity Peripheral Pulses Grid Dorsalis Pedis Pulse, Left : 2+ Normal Dorsalis Pedis Pulse, Right : 2+ Normal STEFF DE LA CRUZ RN - 07/12/2014 23:50 CDT Source: [employer] Document Id: [id number] CDT!17 Miscellaneous - Steff De La Cruz R.N. - 07/12/2014 9:10 PM CDT Adult Activities of Daily Living Adult Activities of Daily Living Entered On: 07/12/2014 23:57 CDT Performed On: 07/12/2014 21:10 CDT by STEFF DE LA CRUZ RN ADLs I Activity Status ADL : Ambulating in tse, Other: walked to about 212 and back to room and back to bed. Tolerated well. Activity Assistance : Supervision/Minimum 1 person assistance Assistive Device : Other: cart Antiembolism Device : Sequential Compression Device Antiembolism Device Laterality : Bilateral Antiembolism Device Removal Reason : Activity STEFF DE LA CRUZ RN - 07/12/2014 23:56 CDT Source: [employer] Document Id: [id number] CDT!8 Miscellaneous - Steff De La Cruz R.N. - 07/12/2014 7:00 PM CDT Adult Ongoing Assessment Adult Ongoing Assessment Entered On: 07/12/2014 19:13 CDT Performed On: 07/12/2014 19:00 CDT by STEFF DE LA CRUZ RN Respiratory Respiratory Patient Stated Symptoms : None Incentive Spirometry Volume Achieved : 1,500 mL Respirations : Unlabored Respiratory Pattern : Regular Cough : None Airway : Patent STEFF DE LA CRUZ RN - 07/12/2014 19:09 CDT Cardiovascular CV Patient Stated Symptoms : None Heart Rhythm : Regular Antiembolism Device Yes/No : Yes Nail Bed Color : [place] Skin Color : Normal for ethnicity Skin Description : Normal Skin Temperature : Warm STEFF DE LA CRUZ RN - 07/12/2014 19:09 CDT Antiembolism Device Antiembolism Device : Sequential Compression Device Antiembolism Device Laterality : Bilateral STEFF DE LA CRUZ RN 07/12/2014 19:09 CDT Neurological Neuro Patient Stated Symptoms : None Orientation : Oriented x 3 Level of Consciousness : Alert STEFF DE LA CRUZ RN - 07/12/2014 19:09 CDT Psycho/Emotional Affect/Behavior : Calm, Cooperative, Appropriate Pain Symptoms : Yes STEFF DE LA CRUZ RN - 07/12/2014 19:09 CDT Coping Grid Uses effective strategies : Yes Stressors perceived within control : Yes Stable mood with appropriate affect : Yes Behaviors indicate use of coping mechanism : Yes STEFF DE LA CRUZ RN - 07/12/2014 19:09 CDT Safety Grid Vision, Hearing, Mobility Adequate to Meet Safety Needs : No (Comment: up with help [STEFF DE LA CRUZ RN - 07/12/2014 19:09 CDT] ) STEFF DE LA CRUZ RN - 07/12/2014 19:09 CDT Gastrointestinal GI Patient Stated Symptoms : None Abdomen Description : Flat Abdomen Palpation : Soft Bowel Movement Last Date : 07/12/2014 CDT Bowel Sounds All Quadrants : Present Passing Flatus : No STEFF DE LA CRUZ RN - 07/12/2014 19:09 CDT Genitourinary Patient Stated Symptoms : None Urinary Elimination : Urinary catheter Urine Color : Yellow Urine Description : Clear STEFF DE LA CRUZ RN - 07/12/2014 19:09 CDT Urinary Catheter Details Urinary Catheter Clinical Indication : Perioperative management Continued Need for Urinary Catheter : Yes Catheter discontinued : No STEFF DE LA CRUZ RN 07/12/2014 19:09 CDT Integumentary Integumentary Patient Stated Symptoms : None Skin Turgor : Elastic Skin Integrity : Not intact Mucous Membrane Color : [place] Mucous Membrane Description : Moist Skin Color : Normal for ethnicity Skin Description : Normal Skin Temperature : Warm STEFF DE LA CRUZ 07/12/2014 19:09 CDT Incision/Wound Incision/Wound Care Grid Activity : Assessed, Dressing intact Assessed, Dressing intact Assessed Type : Surgical incision Surgical incision Surgical incision Other: yasmeen pad Location : Abdomen Abdomen Abdomen Laterality : Other: Right #1 Central Other: Left #3 Drainage : None None None None JONO STEFF Peña 07/12/2014 19:09 CDT LIGHT, STEFF Peña 07/12/2014 19:09 CDT JONO STEFF Peña 07/12/2014 19:09 CDT LIGHT, STEFF Peña 07/12/2014 19:09 CDT Koby Sensory Perception Koby : No impairment Moisture Koby : Rarely moist Activity Koby : Walks occasionally Mobility Koby : Slightly limited Nutrition Koby : Adequate Friction and Shear Koby : No apparent problem Koby Score : 20 JONOSTEFF 07/12/2014 19:09 CDT Peripheral IV Peripheral IV Assess/Intervention Grid Peripheral IV #1 IV Activity : Assessment Number of Attempts : 1 Date of Insertion : 07/12/2014 CDT IV Site : Hand Laterality : Left Catheter Size : 18 Catheter Type : Protective Infiltration Score : 0 Phlebitis Score : 0 Primary Tubing Changed : 07/12/2014 CDT IV Equipment/Supplies : Pump tubing, Pump, infusion JONOSTEFF 07/12/2014 19:09 CDT Hendrich II Fall Risk Confusion/Disorientation Hendrich : No Depression Fall Risk Hendrich : No Altered Elimination Fall Risk Hendrich : No Dizziness/Vertigo Fall Risk Hendrich : No Gender, Male Fall Risk Hendrich : No Prescribed Antiepileptics Hendrich : No Prescribed Benzodiazepines Hendrich : No Rising From Chair Fall Risk Hendrich : Multiple attempts but successful Fall Risk Score Hendrich II : 3 STEFF DE LA CRUZ 07/12/2014 19:09 CDT Safe Patient Handling Safe Pt Handling Independent : No Safe Pt Handling Supervision/Minimal Assistance : Yes - Unmotorized Equipment Safe Pt Handling Equipment Rec : Unmotorized Equipment JONO STEFF Mariana 07/12/2014 19:09 CDT Education General Patient Education Powergrid Topics : Activity limitations/expectations, Pain Management Individuals Taught : Patient Barriers to Learning : None evident Teaching Method : Explanation Teaching Evaluation : Verbalizes understanding STEFF DE LA CRUZ RN - 07/12/2014 19:09 CDT Source: [facility] [employer] Document Id: [id number] CDT!125 Miscellaneous - Steff De La Cruz R.N. - 07/12/2014 4:20 PM CDT Adult Postprocedure Assessment Adult Postprocedure Assessment Entered On: 07/12/2014 16:47 CDT Performed On: 07/12/2014 16:20 CDT by STEFF DE LA CRUZ RN Vital Signs Temperature Core : 37.4 DegC(Converted to: 99.3 DegF) Apical Heart Rate : 76 /min Respiratory Rate : 16 /min Systolic Blood Pressure : 105 mmHg Diastolic Blood Pressure : 70 mmHg NIBP Mean : 82 mmHg BP Location : Right upper extremity SpO2 : 96 % Oxygen Saturation Monitoring Frequency : Continuous Oxygen Therapy : Room air Height : 166 cm(Converted to: 5 ft 5 inch(es)) STEFF DE LA CRUZ RN - 07/12/2014 16:42 CDT General Level of Consciousness : Alert Orientation : Oriented x 3 Skin Color : Normal for ethnicity Skin Description : Normal Skin Temperature : Warm Pain Symptoms : Yes STEFF DE LA CRUZ RN - 07/12/2014 16:42 CDT Pain Scale Pain Scale Verbal 0-10 : Open STEFF DE LA CRUZ RN - 07/12/2014 16:42 CDT Pain Pain Assessment Grid Pain 1 Location : Abdomen Laterality : Bilateral Intensity : 7 Interventions : Heat, Medications, Rest STEFF DE LA CRUZ RN - 07/12/2014 16:42 CDT Cardiovascular Heart Rhythm : Regular Nail Bed Color : [place] Antiembolism Device : Sequential Compression Device Antiembolism Device Laterality : Bilateral STEFF DE LA CRUZ RN - 07/12/2014 16:42 CDT Respiratory All Lobes Breath Sounds : Clear Cough and Deep Breathe : Done STEFF DE LA CRUZ RN - 07/12/2014 16:49 CDT Respiratory Patient Stated Symptoms : None Respirations : Unlabored Respiratory Pattern : Regular Cough : None Airway : Patent LIGHT, STEFF L 07/12/2014 16:42 CDT GI/ Nausea Symptoms : No Urinary Elimination : Urinary catheter Urine Color : Yellow STEFF DE LA CRUZ 07/12/2014 16:42 CDT Urinary Catheter Details Urinary Catheter Clinical Indication : Perioperative management Continued Need for Urinary Catheter : Yes Catheter discontinued : No STEFF DE LA CRUZ 07/12/2014 16:42 CDT Integumentary Integumentary Patient Stated Symptoms : None Skin Turgor : Elastic Skin Integrity : Not intact Mucous Membrane Color : [place] Mucous Membrane Description : Moist Skin Color : Normal for ethnicity Skin Description : Normal Skin Temperature : Warm STEFF DE LA CRUZ 07/12/2014 16:42 CDT Incision/Wound Incision/Wound Care Grid Activity : Assessed, Dressing intact Assessed, Dressing intact Assessed Assessed Type : Surgical incision Surgical incision Surgical incision Other: yasmeen pad Location : Abdomen Abdomen Abdomen Laterality : Other: Right #1 Central Other: Left #3 Drainage : None None None None STEFF DE LA CRUZ 07/12/2014 16:42 CDT STEFF DE LA CRUZ 07/12/2014 16:42 CDT STEFF DE LA CRUZ 07/12/2014 16:42 CDT STEFF DE LA CRUZ 07/12/2014 16:42 CDT Peripheral IV Peripheral IV Assess/Intervention Grid Peripheral IV #1 IV Activity : Assessment Number of Attempts : 1 Date of Insertion : 07/12/2014 CDT IV Site : Hand Laterality : Left Catheter Size : 18 Catheter Type : Protective Infiltration Score : 0 Phlebitis Score : 0 Primary Tubing Changed : 07/12/2014 CDT STEFF DE LA CRUZ 07/12/2014 16:42 CDT Lower Extremity Nail Bed Color Feet Grid Left Foot : [place] Right Foot : [place] JONOSTEFF 07/12/2014 16:42 CDT Capillary Refill Feet Grid Left Foot : < 2 seconds Right Foot : < 2 seconds STEFF DE LA CRUZ 07/12/2014 16:42 CDT NV Lower Extremity Color Grid Left : [place] Right : [place] STEFF DE LA CRUZ 07/12/2014 16:42 CDT NV Lower Extremity Temperature Grid Left : Warm Right : Warm JONOSTEFF 07/12/2014 16:42 CDT Lower Extremity Peripheral Pulses Grid Dorsalis Pedis Pulse, Left : 2+ Normal Dorsalis Pedis Pulse, Right : 2+ Normal STEFF DE LA CRUZ RN - 07/12/2014 16:42 CDT Activity Patient Position : Semi-Dotson's STEFF DE LA CRUZ RN - 07/12/2014 16:42 CDT Jurado Jurado Agitation Sedation Scale (RASS) : Alert and calm RASS Score : 0 STEFF DE LA CRUZ RN - 07/12/2014 16:42 CDT Source: [facility] [employer] Document Id: [id number] CDT!4 Miscellaneous - Steff De La Cruz R.N. - 07/12/2014 3:20 PM CDT Adult Postprocedure Assessment Document Has Been Updated Adult Postprocedure Assessment Entered On: 07/12/2014 16:00 CDT Performed On: 07/12/2014 15:20 CDT by STEFF DE LA CRUZ RN Vital Signs Temperature Core : 37.6 DegC(Converted to: 99.7 DegF) Apical Heart Rate : 72 /min Respiratory Rate : 16 /min Systolic Blood Pressure : 108 mmHg Diastolic Blood Pressure : 70 mmHg NIBP Mean : 83 mmHg BP Location : Right upper extremity SpO2 : 95 % Oxygen Saturation Monitoring Frequency : Continuous Oxygen Therapy : Room air Height : 166 cm(Converted to: 5 ft 5 inch(es)) STEFF DE LA CRUZ RN - 07/12/2014 16:01 CDT General Level of Consciousness : Alert Orientation : Oriented x 3 Skin Color : Normal for ethnicity Skin Description : Normal Skin Temperature : Warm Pain Symptoms : Yes STEFF DE LA CRUZ RN 07/12/2014 16:01 CDT Pain Scale Pain Scale Verbal 0-10 : Open STEFF DE LA CRUZ RN 07/12/2014 16:01 CDT Pain Pain Assessment Grid Pain 1 Location : Abdomen STEFF DE LA CRUZ RN 07/12/2014 16:01 CDT Laterality : Bilateral STEFF DE LA CRUZ RN 07/12/2014 16:01 CDT Intensity : 7 STEFF DE LA CRUZ RN - 07/12/2014 16:01 CDT Quality : Cramping, Sharp STEFF DE LA CRUZ RN 07/12/2014 16:01 CDT Interventions : Heat, Medications, Rest STEFF DE LA CRUZ 07/12/2014 16:01 CDT LIGHTSTEFF 07/12/2014 15:52 CDT Cardiovascular Heart Rhythm : Regular Nail Bed Color : [place] Edema Assessment : No Capillary Refill : Less than 2 seconds STEFF DE LA CRUZ 07/12/2014 16:01 CDT Pulses Grid Dorsalis Pedis Pulse, Left : 2+ Normal Dorsalis Pedis Pulse, Right : 2+ Normal STEFF DE LA CRUZ 07/12/2014 16:01 CDT Antiembolism Device : Sequential Compression Device Antiembolism Device Laterality : Bilateral STEFF DE LA CRUZ 07/12/2014 16:01 CDT Respiratory Respiratory Patient Stated Symptoms : None Respirations : Unlabored Respiratory Pattern : Regular Airway : Patent STEFF DE LA CRUZ 07/12/2014 16:01 CDT GI/ Urinary Elimination : Urinary catheter Urine Color : Yellow STEFF DE LA CRUZ 07/12/2014 16:47 CDT Nausea Symptoms : Yes Nursing Interventions : Patient medicated Abdomen Palpation : Soft Bowel Sounds All Quadrants : Absent (Comment: except rare LLQ [STEFF DE LA CRUZ 07/12/2014 16:01 CDT] ) STEFF DE LA CRUZ 07/12/2014 16:01 CDT Urinary Catheter Details Urinary Catheter Clinical Indication : Perioperative management Continued Need for Urinary Catheter : Yes Catheter discontinued : No STEFF DE LA CRUZ 07/12/2014 16:47 CDT Integumentary Integumentary Patient Stated Symptoms : None Skin Turgor : Elastic Skin Integrity : Not intact Mucous Membrane Color : [place] Mucous Membrane Description : Moist, Dry Skin Color : Normal for ethnicity Skin Description : Normal Skin Temperature : Warm STEFF DE LA CRUZ 07/12/2014 16:01 CDT Incision/Wound Incision/Wound Care Grid Activity : Assessed Assessed, Dressing intact Assessed, Dressing intact Assessed, Dressing intact Type : Other: yasmeen pad Surgical incision Surgical incision Surgical incision Location : Abdomen Abdomen Abdomen Laterality : Other: Right #1 Central Other: Left #3 Drainage : None None None None STEFF DE LA CRUZ 07/12/2014 16:47 CDT STEFF DE LA CRUZ 07/12/2014 15:52 CDT STEFF DE LA CRUZ [facility]07/12/2014 15:52 CDT LIGHT, STEFF Peña 07/12/2014 15:52 CDT Peripheral IV Peripheral IV Assess/Intervention Grid Peripheral IV #1 IV Activity : Assessment LIGHT, STEFF Peña 07/12/2014 16:01 CDT Number of Attempts : 1 STEFF DE LA CRUZ 07/12/2014 16:01 CDT Date of Insertion : 07/12/2014 CDT LIGHT, STEFF [facility] 07/12/2014 16:01 CDT IV Site : Hand LIGHT, STEFF Peña 07/12/2014 16:01 CDT Laterality : Left STEFF DE LA CRUZ 07/12/2014 16:01 CDT Catheter Size : 18 LIGHT, STEFF [facility] 07/12/2014 16:01 CDT Catheter Type : Protective LIGHT, STEFF Peña 07/12/2014 16:01 CDT Infiltration Score : 0 LIGHT, STEFF [facility] 07/12/2014 16:01 CDT Phlebitis Score : 0 LIGHT, STEFF Peña 07/12/2014 16:01 CDT Primary Tubing Changed : 07/12/2014 CDT LIGHT, STEFF [facility] 07/12/2014 16:01 CDT IV Equipment/Supplies : Pump tubing, Pump, infusion LIGHT, STEFF [facility] 07/12/2014 16:01 CDT LIGHT, STEFF [facility] 07/12/2014 15:52 CDT Lower Extremity Nail Bed Color Feet Grid Left Foot : [place] Right Foot : [place] LIGHT, STEFF Peña 07/12/2014 16:01 CDT Capillary Refill Feet Grid Left Foot : < 2 seconds Right Foot : < 2 seconds LIGHT STEFF Peña 07/12/2014 16:01 CDT NV Lower Extremity Color Grid Left : [place] Right : [place] LIGHT, STEFF Peña 07/12/2014 16:01 CDT NV Lower Extremity Temperature Grid Left : Warm Right : Warm LIGHT, STEFF Peña 07/12/2014 16:01 CDT Lower Extremity Peripheral Pulses Grid Dorsalis Pedis Pulse, Left : 2+ Normal Dorsalis Pedis Pulse, Right : 2+ Normal LIGHT, STEFF Peña 07/12/2014 16:01 CDT Upper Extremity Nail Bed Color Hands Grid Left Hand : [place] Right Hand : [place] LIGHT, STEFF Peña 07/12/2014 16:01 CDT Upper Extremity Color Grid Left : [place] Right : [place] STEFF DE LA CRUZ RN - 07/12/2014 16:01 CDT Activity Patient Position : Semi-Dotson's STEFF DE LA CRUZ RN - 07/12/2014 16:01 CDT Jurado Jurado Agitation Sedation Scale (RASS) : Alert and calm RASS Score : 0 STEFF DE LA CRUZ RN - 07/12/2014 16:01 CDT Koby Sensory Perception Koby : No impairment Moisture Koby : Rarely moist Activity Koby : Walks occasionally Mobility Koby : Slightly limited Nutrition Koby : Very poor Friction and Shear Koby : No apparent problem Koby Score : 18 STEFF DE LA CRZU RN - 07/12/2014 16:01 CDT Hendrich II Fall Risk Confusion/Disorientation Hendrich : No Depression Fall Risk Hendrich : No Altered Elimination Fall Risk Hendrich : No Dizziness/Vertigo Fall Risk Hendrich : No Gender, Male Fall Risk Hendrich : No Prescribed Antiepileptics Hendrich : No Prescribed Benzodiazepines Hendrich : No Rising From Chair Fall Risk Hendrich : Unable to rise without assistance Fall Risk Score Hendrich II : 4 STEFF DE LA CRUZ RN - 07/12/2014 16:01 CDT Safe Patient Handling Safe Pt Handling Independent : Yes - No equipment needed Safe Pt Handling Equipment Rec : No Equipment Needed STEFF DE LA CRUZ RN - 07/12/2014 16:01 CDT Education General Patient Education [employer] Topics : Medication dosage, route, scheduling, Medication generic/brand names, purpose, action, PainManagement, Plan of care STEFF DE LA CRUZ RN - 07/12/2014 16:01 CDT Individuals Taught : Patient STEFF DE LA CRUZ RN - 07/12/2014 16:01 CDT Barriers to Learning : None evident STEFF DE LA CRUZ RN - 07/12/2014 16:01 CDT Teaching Method : Explanation STEFF DE LA CRUZ RN - 07/12/2014 16:01 CDT Teaching Evaluation : Verbalizes understanding STEFF DE LA CRUZ RN - 07/12/2014 16:01 CDT STEFF DE LA CRUZ RN - 07/12/2014 15:52 CDT Source: [place] Document Id: [id number] CDT!14 Miscellaneous - Steff De La Cruz R.N. - 07/12/2014 3:20 PM CDT Neurovascular Assessment Lower Extremity Neurovascular Assessment Lower Extremity Entered On: 07/12/2014 16:41 CDT Performed On: 07/12/2014 15:20 CDT by STEFF DE LA CRUZ RN Lower Extremity Nail Bed Color Feet Grid Left Foot : [place] Right Foot : [place] STEFF DE LA CRUZ RN - 07/12/2014 16:41 CDT Capillary Refill Feet Grid Left Foot : < 2 seconds Right Foot : < 2 seconds STEFF DE LA CRUZ RN - 07/12/2014 16:41 CDT NV Lower Extremity Color Grid Left : [place] Right : [place] STEFF DE LA CRUZ RN - 07/12/2014 16:41 CDT NV Lower Extremity Temperature Grid Left : Warm Right : Warm STEFF DE LA CRUZ RN - 07/12/2014 16:41 CDT Lower Extremity Peripheral Pulses Grid Dorsalis Pedis Pulse, Left : 2+ Normal Dorsalis Pedis Pulse, Right : 2+ Normal STEFF DE LA CRUZ RN - 07/12/2014 16:41 CDT Source: [employer] Document Id: [id number] CDT!17 Andree - Bhavesh Reddy R.N. - 07/12/2014 3:00 PM CDT Neurovascular Assessment Lower Extremity Neurovascular Assessment Lower Extremity Entered On: 07/12/2014 15:41 CDT Performed On: 07/12/2014 15:00 CDT by BHAVESH REDDY RN Lower Extremity Nail Bed Color Feet Grid Left Foot : [place] Right Foot : [place] BHAVESH REDDY RN - 07/12/2014 15:41 CDT Capillary Refill Feet Grid Left Foot : < 2 seconds Right Foot : < 2 seconds BHAVESH REDDY RN - 07/12/2014 15:41 CDT NV Lower Extremity Color Grid Left : [place] Right : [place] BHAVESH REDDY RN - 07/12/2014 15:41 CDT NV Lower Extremity Temperature Grid Left : Warm Right : Warm BHAVESH REDDY RN - 07/12/2014 15:41 CDT Lower Extremity Peripheral Pulses Grid Dorsalis Pedis Pulse, Left : 2+ Normal Dorsalis Pedis Pulse, Right : 2+ Normal BHAVESH REDDY RN - 07/12/2014 15:41 CDT Source: [facility] [employer] Document Id: [id number] CDT!17 Miscellaneous - Bhavesh Reddy R.N. - 07/12/2014 2:30 PM CDT Adult Postprocedure Assessment Adult Postprocedure Assessment Entered On: 07/12/2014 15:47 CDT Performed On: 07/12/2014 14:30 CDT by BHAVESH REDDY RN Vital Signs Temperature Core : 37.9 DegC(Converted to: 100.2 DegF) Apical Heart Rate : 72 /min Respiratory Rate : 12 /min (LOW) Systolic Blood Pressure : 115 mmHg Diastolic Blood Pressure : 72 mmHg NIBP Mean : 86 mmHg BP Location : Right upper extremity SpO2 : 99 % Oxygen Saturation Monitoring Frequency : Continuous Oxygen Flow Rate : 1 L/min Oxygen Therapy : Nasal Cannula Height : 166 cm(Converted to: 5 ft 5 inch(es)) BHAVESH REDDY RN - 07/12/2014 15:43 CDT General Level of Consciousness : Alert Orientation : Oriented x 3 Skin Color : [place] Skin Description : Dry Skin Temperature : Warm Pain Symptoms : Yes BHAVESH REDDY RN - 07/12/2014 15:43 CDT Pain Scale Pain Scale Verbal 0-10 : Open BHAVESH REDDY RN - 07/12/2014 15:43 CDT Pain Pain Assessment Grid Pain 1 Location : Abdomen Laterality : Bilateral Intensity : 6 Acceptable Intensity : 3 BHAVESH REDDY RN - 07/12/2014 15:43 CDT Cardiovascular Heart Rhythm : Regular Nail Bed Color : [place] Edema Assessment : No Capillary Refill : Less than 2 seconds BHAVESH REDDY RN - 07/12/2014 15:43 CDT Pulses Grid Dorsalis Pedis Pulse, Left : 2+ Normal Dorsalis Pedis Pulse, Right : 2+ Normal BHAVESH REDDY RN - 07/12/2014 15:43 CDT Antiembolism Device : Sequential Compression Device Antiembolism Device Laterality : Bilateral BHAVESH REDDY - 07/12/2014 15:43 CDT Respiratory Respiratory Patient Stated Symptoms : None Respirations : Unlabored Respiratory Pattern : Regular All Lobes Breath Sounds : Clear Cough and Deep Breathe : Done Cough : None Sputum Amount : None Suction : None RAIMUNDO REDDYARA Wendie - 07/12/2014 15:43 CDT GI/ Nausea Symptoms : No Abdomen Palpation : Soft Bowel Sounds All Quadrants : Present Abdomen Description : Flat Urinary Elimination : Urinary catheter Urine Color : Straw VIRGIEPerfectoRAIMUNDOBHAVESH Wendie - 07/12/2014 15:43 CDT Urinary Catheter Details Urinary Catheter Clinical Indication : Perioperative management Continued Need for Urinary Catheter : Yes Catheter discontinued : No RAIMUNDO REDDYARA Wendie - 07/12/2014 15:43 CDT Integumentary Integumentary Patient Stated Symptoms : None Skin Turgor : Elastic Skin Integrity : Not intact Mucous Membrane Color : [place] Mucous Membrane Description : Moist Skin Color : [place] Skin Description : Dry Skin Temperature : Warm VIRGIEPerfectoRAIMUNDOBHAVESH [place]ie - 07/12/2014 15:43 CDT Incision/Wound Incision/Wound Care Grid Activity : Assessed, Dressing intact Assessed, Dressing intact Assessed, Dressing intact Type : Surgical incision Surgical incision Surgical incision Location : Abdomen Abdomen Abdomen Laterality : Other: Right #1 Central Other: Left #3 Drainage : None None None RAIMUNDO REDDYARA [place]ie - 07/12/2014 15:43 CDT BHAVESH REDDY - 07/12/2014 15:43 CDT BHAVESH REDDY - 07/12/2014 15:43 CDT Nutrition Afternoon Snack : 75 % BHAVESH REDDY - 07/12/2014 15:43 CDT Activity Patient Position : Supine Activity Status ADL : Complete bedrest Positioning/Pressure Reducing Devices : Pillow Range of Motion LUE : Active Range of Motion RUE : Active Range of Motion LLE : Active Range of Motion RLE : Active DAGOBERTO BHAVESH Wendie - 07/12/2014 15:43 CDT Modified Bert Activity : Moves 4 extremities voluntarily or on command Respiratory : Able to deep breathe and cough freely Circulation : BP +/- 20% of preprocedural level or not unusually high or low Consciousness : Fully awake O2 Saturation : O2 SAT at preprocedural level Bert l Score : 10 BHAVESH REDDY RN - 07/12/2014 15:43 CDT Koby Sensory Perception Koby : No impairment Moisture Koby : Rarely moist Activity Koby : Walks occasionally Mobility Kboy : No limitations Nutrition Koby : Adequate Friction and Shear Koby : No apparent problem Koby Score : 21 BHAVESH REDDY RN - 07/12/2014 15:43 CDT Safe Patient Handling Safe Pt Handling Independent : Yes - No equipment needed Safe Pt Handling Equipment Rec : No Equipment Needed BHAVESH REDDY RN - 07/12/2014 15:43 CDT Source: [employer] Document Id: [id number] CDT!117 Miscellaneous - Bhavesh Reddy RCinthiaNCinthia - 07/12/2014 1:15 PM CDT Adult Postprocedure Assessment Adult Postprocedure Assessment Entered On: 07/12/2014 14:08 CDT Performed On: 07/12/2014 13:15 CDT by BHAVESH REDDY RN Vital Signs Temperature Core : 37.2 DegC(Converted to: 99.0 DegF) Apical Heart Rate : 82 /min Respiratory Rate : 12 /min (LOW) Systolic Blood Pressure : 115 mmHg Diastolic Blood Pressure : 68 mmHg NIBP Mean : 84 mmHg BP Location : Right upper extremity SpO2 : 99 % Oxygen Saturation Monitoring Frequency : Continuous Oxygen Flow Rate : 2 L/min Oxygen Therapy : Nasal Cannula Height : 166 cm(Converted to: 5 ft 5 inch(es)) BHAVESH REDDY RN - 07/12/2014 14:05 CDT General Level of Consciousness : Alert Orientation : Oriented x 3 Skin Color : [place] Skin Description : Dry Skin Temperature : Warm Pain Symptoms : Yes BHAVESH REDDY RN - 07/12/2014 14:05 CDT Pain Scale Pain Scale Verbal 0-10 : Open BHAVESH REDDY RN - 07/12/2014 14:05 CDT Pain Pain Assessment Grid Pain 1 Location : Abdomen Laterality : Bilateral Intensity : 5 Acceptable Intensity : 3 BHAVESH REDDY 07/12/2014 14:05 CDT Cardiovascular Heart Rhythm : Regular Nail Bed Color : [place] Edema Assessment : No Capillary Refill : Less than 2 seconds BHAVESH REDDY 07/12/2014 14:05 CDT Pulses Grid Dorsalis Pedis Pulse, Left : 2+ Normal Dorsalis Pedis Pulse, Right : 2+ Normal BHAVESH REDDY 07/12/2014 14:05 CDT Antiembolism Device : Sequential Compression Device Antiembolism Device Laterality : Bilateral BHAVESH REDDY 07/12/2014 14:05 CDT Respiratory Respiratory Patient Stated Symptoms : None Respirations : Unlabored Respiratory Pattern : Regular All Lobes Breath Sounds : Clear BHAVESH REDDY 07/12/2014 14:05 CDT GI/ Nausea Symptoms : No Abdomen Palpation : Soft Abdomen Description : Flat Urinary Elimination : Urinary catheter Urine Color : Straw PATRICEKYARABHAVESH [place] 07/12/2014 14:05 CDT Urinary Catheter Details Urinary Catheter Clinical Indication : Perioperative management Continued Need for Urinary Catheter : Yes Catheter discontinued : No PATRICEKYARABHAVESH rGove 07/12/2014 14:05 CDT Integumentary Integumentary Patient Stated Symptoms : None Skin Turgor : Elastic Skin Integrity : Not intact Mucous Membrane Color : [place] Mucous Membrane Description : Moist Skin Color : [place] Skin Description : Dry Skin Temperature : Warm BHAVESH REDDY 07/12/2014 14:05 CDT Incision/Wound Incision/Wound Care Grid Activity : Assessed, Dressing intact Assessed, Dressing intact Assessed, Dressing intact Type : Surgical incision Surgical incision Surgical incision Location : Abdomen Abdomen Abdomen Laterality : Other: Right #1 Central Other: Left #3 Drainage : None None None PATRICEKYARABHAVESH [place] 07/12/2014 14:05 CDT DAGOBERTO BHAVESH [place] 07/12/2014 14:05 CDT PATRICEKYARAPerfecto BHAVESH [place] 07/12/2014 14:05 CDT Jurado Jurado Agitation Sedation Scale (RASS) : Alert and calm RASS Score : 0 PATRICEKYARABHAVESH [place] 07/12/2014 14:05 CDT Koby Sensory Perception Koby : No impairment Moisture Koby : Rarely moist Activity Koby : Walks occasionally Mobility Koby : No limitations Nutrition Koby : Adequate Friction and Shear Koby : No apparent problem Koby Score : 21 BHAVESH REDDY RN - 07/12/2014 14:05 CDT Hendrich II Fall Risk Confusion/Disorientation Hendrich : No Depression Fall Risk Hendrich : No Altered Elimination Fall Risk Hendrich : No Dizziness/Vertigo Fall Risk Hendrich : No Gender, Male Fall Risk Hendrich : No Prescribed Antiepileptics Hendrich : No Prescribed Benzodiazepines Hendrich : No Rising From Chair Fall Risk Hendrich : Unable to rise without assistance Fall Risk Score Hendrich II : 4 BHAVESH REDDY RN - 07/12/2014 14:05 CDT Source: [employer] Document Id: [id number] CDT!105 Miscellaneous - Bhavesh Reddy R.N. - 07/12/2014 12:45 PM CDT Adult Postprocedure Assessment Adult Postprocedure Assessment Entered On: 07/12/2014 14:05 CDT Performed On: 07/12/2014 12:45 CDT by BHAVESH REDDY RN Vital Signs Temperature Core : 37.5 DegC(Converted to: 99.5 DegF) Apical Heart Rate : 80 /min Respiratory Rate : 12 /min (LOW) Systolic Blood Pressure : 121 mmHg Diastolic Blood Pressure : 75 mmHg NIBP Mean : 90 mmHg BP Location : Right upper extremity SpO2 : 100 % Oxygen Saturation Monitoring Frequency : Continuous Oxygen Flow Rate : 3 L/min Oxygen Therapy : Nasal Cannula Height : 166 cm(Converted to: 5 ft 5 inch(es)) BHAVESH REDDY RN - 07/12/2014 14:02 CDT General Level of Consciousness : Alert Orientation : Oriented x 3 Skin Description : Dry Skin Temperature : Warm Pain Symptoms : Yes BHAVESH REDDY RN - 07/12/2014 14:02 CDT Pain Scale Pain Scale Verbal 0-10 : Open BHAVESH REDYD RN - 07/12/2014 14:02 CDT Pain Pain Assessment Grid Pain 1 Location : Abdomen Laterality : Bilateral Intensity : 5 Acceptable Intensity : 3 BHAVESH REDDY RN - 07/12/2014 14:02 CDT Cardiovascular Heart Rhythm : Regular Nail Bed Color : [place] Edema Assessment : No Capillary Refill : Less than 2 seconds Antiembolism Device : Sequential Compression Device Antiembolism Device Laterality : Bilateral BHAVESH REDDY RN - 07/12/2014 14:02 CDT Respiratory Respiratory Patient Stated Symptoms : None Respirations : Unlabored Respiratory Pattern : Regular All Lobes Breath Sounds : Clear Cough : None Suction : None BHAVESH REDDY RN - 07/12/2014 14:02 CDT GI/ Nausea Symptoms : No Abdomen Palpation : Soft Abdomen Description : Flat Urinary Elimination : Urinary catheter Urine Color : Straw BHAVESH REDDY RN - 07/12/2014 14:02 CDT Urinary Catheter Details Urinary Catheter Clinical Indication : Perioperative management Continued Need for Urinary Catheter : Yes Catheter discontinued : No BHAVESH REDDY RN - 07/12/2014 14:02 CDT Integumentary Integumentary Patient Stated Symptoms : None Skin Turgor : Elastic Skin Integrity : Not intact Mucous Membrane Color : [place] Mucous Membrane Description : Moist Skin Color : [place] Skin Description : Dry Skin Temperature : Warm BHAVESH REDDY RN - 07/12/2014 14:02 CDT Incision/Wound Incision/Wound Care Grid Activity : Assessed, Dressing intact Assessed, Dressing intact Assessed, Dressing intact Type : Surgical incision Surgical incision Surgical incision Location : Abdomen Abdomen Abdomen Laterality : Other: Right #1 Central Other: Left #3 Drainage : None None None BHAVESH REDDY RN - 07/12/2014 14:02 CDT BHAVESH REDDY RN - 07/12/2014 14:02 CDT BHAVESH REDDY RN - 07/12/2014 14:02 CDT Activity Patient Position : Elevate head of bed 30 degrees, Supine Activity Status ADL : Complete bedrest Range of Motion LUE : Active Range of Motion RUE : Active Range of Motion LLE : Active Range of Motion RLE : Active BHAVESH REDDY RN - 07/12/2014 14:02 CDT Modified Bert Activity : Moves 4 extremities voluntarily or on command Respiratory : Able to deep breathe and cough freely Circulation : BP +/- 20% of preprocedural level or not unusually high or low Consciousness : Fully awake O2 Saturation : O2 SAT at preprocedural level Bert l Score : 10 BHAVESH REDDY RN - 07/12/2014 14:02 CDT Jurado Jurado Agitation Sedation Scale (RASS) : Alert and calm RASS Score : 0 BHAVESH REDDY RN - 07/12/2014 14:02 CDT Safe Patient Handling Safe Pt Handling Independent : Yes - No equipment needed Safe Pt Handling Equipment Rec : No Equipment Needed BHAVESH REDDY RN - 07/12/2014 14:02 CDT [facility] [employer] Document Id: [id number] CDT!102 Miscellaneous - Bhavesh Reddy R.N. - 07/12/2014 12:15 PM CDT Adult Postprocedure Assessment Adult Postprocedure Assessment Entered On: 07/12/2014 14:01 CDT Performed On: 07/12/2014 12:15 CDT by BHAVESH REDDY RN Vital Signs Temperature Core : 37.4 DegC(Converted to: 99.3 DegF) Apical Heart Rate : 80 /min Respiratory Rate : 12 /min (LOW) Systolic Blood Pressure : 123 mmHg Diastolic Blood Pressure : 78 mmHg NIBP Mean : 93 mmHg BP Location : Right upper extremity SpO2 : 100 % Oxygen Saturation Monitoring Frequency : Continuous Oxygen Flow Rate : 3 L/min Oxygen Therapy : Nasal Cannula Height : 166 cm(Converted to: 5 ft 5 inch(es)) BHAVESH REDDY RN - 07/12/2014 13:44 CDT General Level of Consciousness : Alert Orientation : Oriented x 3 Skin Color : [place] Skin Description : Dry Skin Temperature : Warm Pain Symptoms : Yes BHAVESH REDDY RN - 07/12/2014 13:44 CDT Pain Scale Pain Scale Verbal 0-10 : Open BHAVESH REDDY RN - 07/12/2014 13:44 CDT Pain Pain Assessment Grid Pain 1 Location : Abdomen Laterality : Bilateral Intensity : 7 Acceptable Intensity : 3 Aggravating Factors : Movement Alleviating Factors : Medication BHAVESH REDDY RN - 07/12/2014 13:44 CDT Cardiovascular Heart Rhythm : Regular Nail Bed Color : [place] Edema Assessment : No Capillary Refill : Less than 2 seconds VIRGIEBHAVESH [place] Wendie - 07/12/2014 13:44 CDT Pulses Grid Dorsalis Pedis Pulse, Left : 2+ Normal Dorsalis Pedis Pulse, Right : 2+ Normal VIRGIEPerfecto BHAVESH [place] - 07/12/2014 13:44 CDT Antiembolism Device : Sequential Compression Device Antiembolism Device Laterality : Bilateral VIRGIEPerfectoRAIMUNDOBHAVESH [place] - 07/12/2014 13:44 CDT Respiratory Respiratory Patient Stated Symptoms : None Respirations : Unlabored Respiratory Pattern : Regular All Lobes Breath Sounds : Clear Cough : None Sputum Amount : None Suction : None DAGOBERTO BHAVESH [place] - 07/12/2014 13:44 CDT GI/ Nausea Symptoms : No Abdomen Palpation : Soft Bowel Sounds All Quadrants : Hypoactive Abdomen Description : Flat Urinary Elimination : Urinary catheter Urine Color : Yellow RAIMUNDO REDDYARA [place] - 07/12/2014 13:44 CDT Urinary Catheter Details Urinary Catheter Clinical Indication : Perioperative management Continued Need for Urinary Catheter : Yes Catheter discontinued : No BHAVESH REDDY - 07/12/2014 13:44 CDT Integumentary Integumentary Patient Stated Symptoms : None Skin Turgor : Elastic Skin Integrity : Not intact Mucous Membrane Color : [place] Mucous Membrane Description : Moist Skin Color : [place] Skin Description : Dry Skin Temperature : Warm VIRGIEPerfecto BHAVESH Wendie - 07/12/2014 13:44 CDT Incision/Wound Incision/Wound Care Grid Activity : Assessed, Dressing intact Assessed, Dressing intact Assessed, Dressing intact Type : Surgical incision Surgical incision Surgical incision Location : Abdomen Abdomen Abdomen Laterality : Other: Right #1 Central Other: Left #3 Drainage : None None None Surrounding Tissue : Healthy, Intact Healthy, Intact Healthy, Intact DAGOBERTO BHAVESH Wendie - 07/12/2014 13:44 CDT BHAVESH REDDY - 07/12/2014 13:44 CDT BHAVESH REDDY - 07/12/2014 13:44 CDT Peripheral IV Peripheral IV Assess/Intervention Grid Peripheral IV #1 IV Activity : Assessment Number of Attempts : 1 Date of Insertion : 07/12/2014 CDT IV Site : Hand Laterality : Left Catheter Size : 18 Catheter Type : Protective Site Condition : No complications Drainage Description : None Primary Tubing Changed : 07/12/2014 CDT DYVIBHAVESH [place] - 07/12/2014 13:44 CDT Neurologic Swallowing Difficulty/Aspiration Risk : None Extremity Movement : Equal BHAVESH REDDY 07/12/2014 13:44 CDT Lower Extremity Nail Bed Color Feet Grid Left Foot : [place] Right Foot : [place] BHAVESH REDDY - 07/12/2014 13:44 CDT Capillary Refill Feet Grid Left Foot : < 2 seconds Right Foot : < 2 seconds BHAVESH REDDY 07/12/2014 13:44 CDT NV Lower Extremity Color Grid Left : [place] Right : [place] BHAVESH REDDY 07/12/2014 13:44 CDT NV Lower Extremity Temperature Grid Left : Warm Right : Warm BHAVESH REDDY 07/12/2014 13:44 CDT Lower Extremity Peripheral Pulses Grid Dorsalis Pedis Pulse, Left : 2+ Normal Dorsalis Pedis Pulse, Right : 2+ Normal BHAVESH REDDY 07/12/2014 13:44 CDT Activity Patient Position : Head of bed flat, Supine Activity Status ADL : Complete bedrest Positioning/Pressure Reducing Devices : Pillow Range of Motion LUE : Active Range of Motion RUE : Active Range of Motion LLE : Active Range of Motion RLE : Active VIRGIEBHAVESH [place] 07/12/2014 13:44 CDT Modified Bert Activity : Moves 4 extremities voluntarily or on command Respiratory : Able to deep breathe and cough freely Circulation : BP +/- 20% of preprocedural level or not unusually high or low Consciousness : Fully awake O2 Saturation : O2 SAT at preprocedural level Bert l Score : 10 PATRICEBHAVESH IRVIN - 07/12/2014 13:44 CDT Jurado Jurado Agitation Sedation Scale (RASS) : Alert and calm RASS Score : 0 PATRICEBHAVESH IRVIN - 07/12/2014 13:44 CDT Koby Sensory Perception Koby : No impairment Moisture Koby : Rarely moist Activity Koby : Walks occasionally Mobility Koby : No limitations Nutrition Koby : Adequate Friction and Shear Koby : No apparent problem Koby Score : 21 VIRGIEBHAVESH [place] - 07/12/2014 13:44 CDT Hendrich II Fall Risk Confusion/Disorientation Hendrich : No Depression Fall Risk Hendrich : No Altered Elimination Fall Risk Hendrich : No Dizziness/Vertigo Fall Risk Hendrich : No Gender, Male Fall Risk Hendrich : No Prescribed Antiepileptics Hendrich : No Prescribed Benzodiazepines Hendrich : No Rising From Chair Fall Risk Hendrich : Pushes up, successful in one attempt Fall Risk Score Hendrich II : 1 BHAVESH REDDY RN - 07/12/2014 13:44 CDT Safe Patient Handling Safe Pt Handling Independent : Yes - No equipment needed Safe Pt Handling Equipment Rec : No Equipment Needed BHAVESH REDDY RN - 07/12/2014 13:44 CDT Education General Patient Education Powergrid Topics : Activity limitations/expectations, Medication dosage, route, scheduling, Nutrition/Diet, Pain Management, Physical limitations, Plan of care, Safety, fall Individuals Taught : Patient Barriers to Learning : None evident Teaching Method : Explanation Teaching Evaluation : Verbalizes understanding BHAVESH REDDY RN - 07/12/2014 13:44 CDT Source: [employer] Document Id: [id number] CDT!172 Miscellaneous - Debby Campos R.N. - 07/12/2014 6:32 AM CDT Adult Admission History Adult Admission History Entered On: 07/12/2014 6:32 CDT Performed On: 07/12/2014 6:32 CDT by DEBBY CAMPOS RN General Info Preferred Name : denice Admitted From : Non-Health Care Facility Point of Origin Mode of Arrival : Ambulatory Accompanied By : Spouse Chief Complaint : hyst Preferred Communication Mode : Verbal Information Given By : Patient Languages : Slovak Have you received chemotherapy in last 48 hours? : No Is Patient Female and 13-50 no hysterectomy : Yes Status : Patient denies Are you ? : No DEBBY CAMPOS RN - 07/12/2014 6:32 CDT ID Screen Drug Resistant Organism : No Travel Within Last 21 Days : No Contact with someone with Ebola : No DEBBY CAMPOS RN - 07/12/2014 6:32 CDT Nutrition Nutrition Risk Factors by History Adult : None Home Diet : Regular DEBBY CAMPOS RN - 07/12/2014 6:32 CDT Home Environment Current Daily Living Assistance : None Living Situation : Home independently Home Equipment : None Sensory Deficits : None Mobility Assistance Prior to Admission : Independent Current Home Treatments : None Professional Skilled Services : None Special Services and Community Resources : None DEBBY CAMPOS RN - 07/12/2014 6:32 CDT Psychosocial Adult Domestic Abuse Concerns : None Islam Preference : Quaker DEBBY CAMPOS RN - 07/12/2014 6:32 CDT Advance Directive Advanced Directives : No Advance Directive Additional Information : No DEBBY CAMPOS RN - 07/12/2014 6:32 CDT Educ Needs Patient/Family Education Needs : Surgery DEBBY CAMPOS RN - 07/12/2014 6:32 CDT Learning Style Preference Adult Grid Patient : Verbal explanation, Printed materials Family : Printed materials, Verbal explanation DEBBY CAMPOS RN - 07/12/2014 6:32 CDT Source: [employer] Document Id: [id number] CDT!41 Miscellaneous - Debby Campos RCinthiaNCinthia - 07/12/2014 6:21 AM CDT Adult Admission Assessment Adult Admission Assessment Entered On: 07/12/2014 6:22 CDT Performed On: 07/12/2014 6:21 CDT by DEBBY CAMPOS RN Respiratory Respiratory Patient Stated Symptoms : None Respirations : Unlabored All Lobes Breath Sounds : Clear DEBBY CAMPOS RN - 07/12/2014 6:21 CDT Cardiovascular CV Patient Stated Symptoms : None Heart Rhythm : Regular Antiembolism Device Yes/No : Yes Nail Bed Color : [place] Skin Color : Normal for ethnicity Skin Description : Dry Skin Temperature : Warm DEBBY CAMPOS RN - 07/12/2014 6:21 CDT Antiembolism Device Antiembolism Device : Sequential Compression Device Antiembolism Device Laterality : Bilateral Anti Embolism Devices Time Applied : 07/12/2014 6:21 CDT Compression Stockings : Knee High Antiembolism Device Status : Off DEBBY CAMPOS RN - 07/12/2014 6:21 CDT Neurological Neuro Patient Stated Symptoms : None Orientation : Oriented x 3 Level of Consciousness : Alert Gait : Steady Swallowing Difficulty/Aspiration Risk : None DEBBY CAMPOS MARYJANE RN - 07/12/2014 6:21 CDT Psycho/Emotional Pain Symptoms : No Affect/Behavior : Calm, Cooperative, Appropriate Feels Rested : Yes DEBBY CAMPOS MARYJANE RN - 07/12/2014 6:21 CDT Safety Grid Vision, Hearing, Mobility Adequate to Meet Safety Needs : Yes DEBBY CAMPOS MARYJANE RN - 07/12/2014 6:21 CDT Gastrointestinal GI Patient Stated Symptoms : None Bowel Movement Last Date : 07/12/2014 CDT Bowel Sounds All Quadrants : Present DEBBY CAMPOS MARYJANE RN - 07/12/2014 6:33 CDT Genitourinary Patient Stated Symptoms : None Urinary Elimination : Voiding, no difficulties IMANSAMANTHA DEBBY WESLEY RN - 07/12/2014 6:33 CDT Koby Sensory Perception Koby : No impairment Moisture Koby : Rarely moist Activity Koby : Walks frequently Mobility Koby : No limitations Nutrition Koby : Excellent Friction and Shear Koby : No apparent problem Koby Score : 23 IMANDEBBY SINGH MARYJANE RN - 07/12/2014 6:33 CDT Peripheral IV Peripheral IV Assess/Intervention Grid Peripheral IV #1 IV Activity : Start Number of Attempts : 1 Date of Insertion : 07/12/2014 CDT IV Site : Hand Laterality : Left Catheter Size : 18 Catheter Type : Protective Site Condition : No complications DEBBY CAMPOS MARYJANE RN - 07/12/2014 6:33 CDT Hendrich II Fall Risk Confusion/Disorientation Hendrich : No Depression Fall Risk Hendrich : No Altered Elimination Fall Risk Hendrich : No Dizziness/Vertigo Fall Risk Hendrich : No Gender, Male Fall Risk Hendrich : No Prescribed Antiepileptics Hendrich : No Prescribed Benzodiazepines Hendrich : No Rising From Chair Fall Risk Hendrich : Able to rise in a single movement, no loss of balance with steps Fall Risk Score Hendrich II : 0 KATHLEEN CAMPOSKATALINA WESLEY RN - 07/12/2014 6:33 CDT Source: [employer] Document Id: [id number] CDT!37 documented in this encounter Plan of Treatment Not on filedocumented as of this encounter Procedures Procedure Name Priority Date/Time Associated Diagnosis Comme nts SURGICAL PATHOLOGY Routine 07/12/2014 11:29 AM Re sults for this CDT procedure are i n the results section. documented in this encounter Results Pathology Surgical Pathology (07/12/2014 11:29 AM CDT) Specimen (Source) Anatomical Collection Method Collection Time Re ceived Time Location / / Volume Laterality 07/12/2014 11:29 AM CDT Narrative [facility] - 07/16/2014 10:26 AM CDT [facility] in [address] [place] [id number] Patient Name: DENICE OWENS Patient ID #: [id number] Collected: 07/12/2014 Address: City/State/Zip: [id number] [place] [address] ??[phone] Received: Reported: 07/13/2014 07/16/2014 Soc. Sec. #: ?/Age/Sex 1980 (Age: 34) ??F Physician(s): Efraín DICKSON Copy To: ? [facility] ??[phone] [facility], ??[place] ??[id number] SURGICAL PATHOLOGY REPORT FINAL DIAGNOSIS: UTERUS, CERVIX: --- NO HISTOPATHOLOGICAL DIAGNOSIS. UTERUS, ENDOMETRIUM: --- ABLATION WITH FIBROSIS. UTERUS, MYOMETRIUM: --- NO HISTOPATHOLOGICAL DIAGNOSIS. FALLOPIAN TUBES, BILATERAL: --- ONE REVEALING PARATUBAL CYSTS. --- ACCOMPANYING FIMBRIA. [facility]/07/16/2014 JUANJO ELIZABETH M.D. Report electronically released. Interpretation by JUANJO ELIZABETH M.D. SPECIMEN(S) RECEIVED: UTERUS AND BILATERAL FALLOPIAN TUBES CLINICAL HISTORY: PELVIC PAIN ??STAGE I UTERINE PROLAPSE GROSS DESCRIPTION: Submitted as uterus and bilateral tubes is a 103 gram, 8.5 x 6.5 x 4.3 cm symmetrical uterus without adnexa. The overlying serosa is richey and smooth. The cervix is pink white with an ovoid os. The endoce rvical canal is patent. The endometrial cavity is dilated and contains blood, but no maribell s or polyps. The endometrium is 0.1 cm thick. The myometrium is 1.9 cm thick, without masses or polyps. One free-floating fallopian tube is 3 x 0.5 cm. The second fallopian tube is 3.3 x 0.7 cm and has a distal 0.5 cm richey clear cyst. RS, seven cassettes. 1-2 ? - cervix 3-5 ? - full thickness endometrium, myometrium, serosa 6 ? - first described fallopian tube 7 ? - last described fallopian tube with cyst ([id number]) EAE/AMANDA/07/13/2014 MICROSCOPIC DESCRIPTION: Reviewed by Juanjo Elizabeth M.D.; Path ologist AMANDA/07/16/2014 Rocco Dickson M.D. 

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
--- OUTSIDE RECORDS SUMMARY | 2021-12-10 15:38 | XMS_ITS | Encounter Summary ---
:1980 Author Organization [facility] Address [address] [place] [address] Care Team Providers Name Role Phone Unavailable Primary Care Provider Unavailable Encounter Details Date Type Department Care Team Description 07/16/2014 Hospital Encounter HX [facility] Lesley Rodriguez i, M.D. 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 0 07/16/2014 IBUPROFEN ORAL ibuprofen 0 07/16/2014 MULTIVITAMIN WITH MINERALS Take 1 capsule by 0 ORAL mouth daily. documented as of this encounter Progress Notes Dio Dickson M.D. - 07/16/2014 1:54 PM CDT [id number] CHIEF COMPLAINT/REASON FOR VISIT Presenting for fever. HISTORY OF PRESENT ILLNESS Ms. Galdamez is a 34-year-old lady who presents for the above reason. She reports that yesterday evening, she had a temperature of 101 and this morning, she had a temperature of 101.3. Denies any nausea or vomiting. Reports that her pains are well controlled when she is taking the medication. She alsoreports that when her temperatures are at 99 when she is taking the meds and when she stops the painmeds, her temperature goes up to 101. She reports that today, she has taken Tylenol around 2 hours prior to presentation to the hospital and ibuprofen around 4 hours prior to presentation. Patient reports that she is tolerating by mouth intake well. Denies any abnormal discharge or bleeding. Denies any problems with urination. Denies any troubles with bowel movements. She reports that she has not pass a bowel movement since discharge from the hospital although she has been passing gas regularly. Denies any cough. Denies any chest pain. Denies any trouble breathing. Denies any nasal congestion. Denie s any sore throat. Denies any CVA tenderness. PHYSICAL EXAMINATION GENERAL: Appears in no acute distress. Well dressed, well groomed, well developed. PSYCHIATRIC/NEUROLOGIC: Patient is conscious, oriented, cooperative, has appropriate affect. VITAL SIGNS: Blood pressure 100/74, temperature 37.3, pulse initially was 112 and then decreased to the 80s. LUNGS: Clear. Good bilateral air entry. HEART: Normal S1, S2. No murmurs. ABDOMEN: Soft, nontender. No guarding. No rebound. No evidence of peritoneal signs. PELVIC: External genitalia within normal limits. Bartholin and Raton glands are normal. Speculum inserted. The vaginal apex was identified. Appeared to be healing well. There is small amount of brownish discharge. There is no evidence of cellulitis or pus discharge or dehiscence. Bimanual exam revealsthe apex to be very adequately closed and I could palpate the pelvis without any obvious discomfort to the patient. IMPRESSION/REPORT/PLAN We discussed the findings on the examination and we decided to proceed with evaluation as patient reports that temperature keeps recurring. We did perform a compressive metabolic panel, which was normal except for the ALT, which was slightly elevated at 50. A CBC was also performed revealing a hemoglobin and hematocrit of 13.1 and 39.4 with a white blood cell count of 7800 and 60% segmented. Her urine analysis was also within normal limits. The patient was then informed of the results. We decided togive her a course of treatment with Flagyl just to cover any potential bacterial infection. The patient was instructed to monitor her temperature and her symptoms over the next few days and to follow up for re-evaluation. If her temperature continues to spike, we will consider performing a CT scan to rule out urological injury as there does not seem to be any gastrointestinal injuries as the patient has been tolerating by mouth intake very well. All her questions were answered. Dio Dickson M.D./suly Electronically Signed By: DIO DICKSON MD On: 08/12/2014 01:51 PM Source: [facility] MHSDOLBEYNONRADSYS Document Id: [id number] documented in this encounter Miscellaneous Notes Miscellaneous - Dio Dickson M.D. - 07/16/2014 5:25 PM CDT Ambulatory Patient Summary [address] [id number] Visit Information Name: DENICE OWENS [facility] Number: [id number] Current Date: 07/16/2014 17:25:32 Physicians Attending Provider: DIO DICKSON MD Primary Care Provider: CARLOS VANG MD [...] Oral, two times a day ibuprofen (ibuprofen) metroNIDAZOLE (Flagyl 500 mg oral tablet) 1 Tablet(s), Oral, two times a day x 7 day(s) New Routed to [address] [place] [id number] multivitamin with minerals (multivitamin with minerals Multiple Vitamins with Zinc oral capsule) 1 cap, Oral, once a day with magnesium oxyCODONE (oxyCODONE 5 mg oral tablet) 2 Tablet(s), Oral, every 4 hours as needed for pain x 14 day(s) Stop Taking the Following Medications: Medication list as of 07-16-14 17:25 Attention: If you have any medications at [...] Date Time Location Provider 07/20/2014 12:45 ALCL Dominga Estrada MD 07/26/2014 13:45 ALCL FamilyPrac Ovidio MARTINEZ, Carlos Peña 07/26/2014 15:35 AL[facility] TOOL AND 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 Your Goals/Additional instructions: Source: [facility] POWERCHART Document Id: [id number] Miscellaneous - Dio Dickson M.D. - 07/16/2014 5:25 PM CDT Ambulatory Discharge Medication List [place] [address] [place] [id number] Visit Information Name: DENICE OWENS [facility] Number: [id number] Visit Date: 07/16/2014 17:25:31 Attending Provider: DIO DICKSON MD Primary Care Provider: CARLOS VANG MD [...] Oral, two times a day ibuprofen (ibuprofen) metroNIDAZOLE (Flagyl 500 mg oral tablet) 1 Tablet(s), Oral, two times a day x 7 day(s) New Routed to [address] [place], [place] [phone] multivitamin with minerals (multivitamin with minerals Multiple Vitamins with Zinc oral capsule) 1 cap, Oral, once a day with magnesium oxyCODONE (oxyCODONE 5 mg oral tablet) 2 Tablet(s), Oral, every 4 hours as needed for pain x 14 day(s) Stop Taking the Following Medications: Medication list as of 07-16-14 17:25 Attention: If you have any medications at [...] Signed By: Signed On: Additional Information: Source: [facility] POWERCHART Document Id: [id number] Jennifercellmadeline - Carol Ann Gates R.N. - 07/16/2014 5:08 PM CDT Addendum by CAROL ANN GATES RN on 17 July 2014 09:27:32 CDT Spoke with patient and her ,Phan, will come to pepper picker RX. Addendum by DIO DICKSON MD on 17 July 2014 09:17:47 CDT From: DIO DICKSON MD To: [facility]; Sent: 07/17/2014 09:17:47 CDT Subject: RE: i have printed a prescription for her. From: CAROL ANN AGTES RN ([facility]) To: DIO DICKSON MD; Sent: 07/16/2014 17:08:20 CDT Patient called stating she was seen today and forgot to ask for futher RX of her Oxycodone. She has i1days worth left.. She may be reached at [phone] and her could come to pick this up tomorow. Source: [facility] POWERCHART Document Id: [id number] Andree - Kaylyn Gould, C.M.A. - 07/16/2014 2:40 PM CDT Transmitter Engineer Documentation Transmitter Engineer Documentation Entered On: 07/16/2014 14:40 CDT Performed On: 07/16/2014 14:40 CDT by KAYLYN GOULD HOG MAN Transmitter Engineer Documentation CD Procedure Performed : pelvic exam CD Transmitter Engineer Present : Yes CD Transmitter Engineer Name : KAYLYN Starr CMA, CMA - 07/16/2014 14:40 CDT Source: [facility] POWERCHART Document Id: [id number] CDT!5 Miscellaneous - Kaylyn Gould C.M.A. 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 Automatic Intake/History Entered On: 07/16/2014 14:07 CDT Performed On: 07/16/2014 14:05 CDT by KAYLYN GOULD [facility] Intake Chief Complaint : post op fever Temperature Core : 37.3 DegC(Converted to: 99.1 DegF) Peripheral Pulse Rate : 112 /min (HI) Systolic Blood Pressure : 100 mmHg Diastolic Blood Pressure : 74 mmHg NIBP Mean : 83 mmHg BP Location : Left upper extremity Blood Pressure Cuff Size : Regular Height : 166 cm(Converted to: 5 ft 5 inch(es), 65 inch(es)) KAYLYN GOULD [facility] - 07/16/2014 14:05 CDT General Info Information Given By : Patient Languages : Maori Is Patient Female and 13-50 no hysterectomy : No KAYLYN GOULD HOG MAN - 07/16/2014 14:05 CDT Subjective Pain Symptoms : No KAYLYN GOULD CMA - 07/16/2014 14:05 CDT Dependent Habits Tobacco Use/Currently Using : No Exposure to Tobacco Smoke : Care provider denies smoking in home Smoking Status : Never smoker KAYLYN GOULD [facility] - 07/16/2014 14:05 CDT Tobacco Use Grid Last Use : never KAYLYN GOULD CMA - 07/16/2014 14:05 CDT Caffeine Use Grid Caffeine Use : Current Type : Soft drinks Frequency : Weekly Amount : 3 cans per week KAYLYN GOULD [facility] - 07/16/2014 14:05 CDT Recreational Drug Use Grid Drug Use : None KAYLYN GOULD CMA - 07/16/2014 14:05 CDT ID Screen Drug Resistant Organism : No Travel Within Last 21 Days : No Contact with someone with Ebola : No KAYLYN GOULD CMA - 07/16/2014 14:05 CDT Source: [facility] POWERCHART Document Id: [id number] CDT!37 documented in this encounter Plan of Treatment Not on filedocumented as of this encounter Procedures Procedure Name Priority Date/Time Associated Comments Diagnosis URINALYSIS, MIDSTREAM, Routine 07/16/2014 2:45 PM Results for this WITH CULTURE IF CDT procedure ar e in INDICATED the results section. HXCBC W/ MANUAL DIFF Routine 07/16/2014 2:38 PM R esults for this CDT procedure are i n the results section. COMPREHENSIVE Routine 07/16/2014 2:38 PM Results for this METABOLIC PANEL, S/P CDT procedu re are in the results section. documented in this encounter Results (ABNORMAL) Urinalysis, Midstream, with culture if indicated (07/16/2014 2:45 PM CDT) [facility] Qewz Method Time Signature Clarity Clear Clear POWERCHART HXUr Color Yellow Colorless POWERCHART Specific 1.010 POWERCHART Clarinda, POCT, U pH, POCT, Urine 7.0 <5.0 POWERCHART Protein, Ur, Negative Negative POWERCHART Dip MGDL Glucose Negative Negative POWERCHART MGDL Ketones, QL(U) Negative Negative POWERCHART MGDL HXBILIRUBIN Negative Negative POWERCHART HXBLOOD Negative Negative POWERCHART Leukocyte Negative Negative POWERCHART Esterase HXNITRITE Negative Negative POWERCHART Urobilinogen 0.2 0.2 MGDL POWERCHART HXUR WBC. Occ-3 None Seen POWERCHART HPF HXUR RBC. None Seen None Seen POWERCHART HPF Squamous Occ-3 (A) None Seen POWERCHART Epithelial HPF Mucus Present (A) None Seen POWERCHART Specimen (Source) Anatomical Collection Method Collection Time Re ceived Time Location / / Volume Laterality Urine, First 07/16/2014 2:45 PM Voided CDT Dio Dickson M.D. LAB URINE ORDERABLES Performing Organization Address City/State/ZIP Code Phon e Number POWERCHART HXCBC W/ MANUAL DIFF (07/16/2014 2:38 PM CDT) [facility] Qewz Method Time Signature Leukocytes 7.8 3.4 - POWERCHART 10.5 X109L Erythrocytes 4.18 3.90 - POWERCHART 5.03 [id number] Hemoglobin 13.1 12.0 - POWERCHART 15.5 GDL Hematocrit 39.4 34.9 - POWERCHART 44.5 MCV 94.3 82.0 - POWERCHART 98.0 FL Platelet Count 182 150 - 450 POWERCHART X109L RBC Morphology Unremarkable POWERCHART . PLT Estimate Adequate POWERCHART HX RDW 13.0 11.9 - POWERCHART 15.5 Absolute 60.0 41.0 - POWERCHART Neutrophil Count 77.0 Absolute 4.68 1.70 - POWERCHART Neutrophil Count 7.00 X109L HX Lymph Manual 33.0 20.0 - POWERCHART 45.0 Monocytes 7.0 0.0 - POWERCHART 12.0 Specimen (Source) Anatomical Collection Method Collection Time Re ceived Time Location / / Volume Laterality Blood 07/16/2014 2:38 PM CDT Dio Dickson M.D. LAB HISTORICAL ORDERS Performing Organization Address City/State/ZIP Code Phon e Number POWERCHART (ABNORMAL) CMP (Comprehensive Metabolic Panel) (07/16/2014 2:38 PM CDT) [facility] gist Method Time Signature Anion Gap 14 7 - 15 POWERCHART MMOLL Alkaline 57 35 - 105 POWERCHART Phosphatase, S UL Alanine 50 (H) 7 - 45 UL POWERCHART Amniotransferase, LD Aspartate 40 8 - 43 POWERCHART Aminotransferase (AST), S Bilirubin, Total, S 0.2 <=1.2 POWERCHART MGDL Comment: No estab ref range for patients 84 hours to 1 month of age. BUN (Blood Urea Nitrogen), S 10 6 - 24 MGDL POWERCHART Chloride, S 100 98 - 107 MMOLL POWERCHART Comment: Reference values have not been established for patients that are less than 12 months of age. CO2 Total 27 22 - 29 MMOLL POWERCHART Comment: Reference values have not been established for patients that are less than 12 months of age. Creatinine, S 0.83 0.51 - 0.95 MGDL POWERCHAR T Comment: Reference values have not been establish ed for patients that are <12 months of age. ESTIMATED GFR >60 mL/min/BSA Note: eGFR results will not be calculate d for patients <18 Total Protein, S 7.0 6.4 - 8.3 GDL POWERCHAR T Comment: Reference values have not been established for patients that are less than 12 months of age. Glucose 97 70 - 139 MGDL POWERCHART Comment: ADA [...] are less than 12 months of age. Calcium, Total, S 9.8 8.6 - 10.3 MGDL POWERC RUIZ Sodium, S 141 136 - 145 MMOLL POWERCHART Comment: Reference values have not been established for patients that are less than 12 months of age. Potassium, S 4.3 3.5 - 5.1 MMOLL POWERCHART Comment: Reference values have not been established for patients that are less than 12 months of age. Albumin, S 4.4 3.5 - 5.2 GDL POWERCHART Comment: Reference values have not been established for patients that are less than 12 months of age. HXeGFR (MDRD) >60 >=60 [id number] POWERCHART eGFR Black/ >60 >=60 [id number] POWERCHART Specimen (Source) Anatomical Collection Method Collection Time Re ceived Time Location / / Volume Laterality Blood 07/16/2014 2:38 PM CDT Dio Dickson M.D. 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
--- OUTSIDE RECORDS SUMMARY | 2021-12-10 15:38 | XMS_ITS | Encounter Summary ---
:[address] [facility] Address [address] [place] [address] Care Team Providers Name Role Phone Unavailable Primary Care Provider Unavailable Encounter Details Date Type Department Care Team Description 07/26/2014 Hospital Encounter HX [facility] FAMILYPRA Carlos Vang M.D. 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 0 07/16/2014 IBUPROFEN ORAL ibuprofen 0 07/16/2014 MULTIVITAMIN WITH MINERALS Take 1 capsule by 0 ORAL mouth daily. documented as of this encounter Progress Notes Carlos Vang M.D. - 07/26/2014 1:34 PM CDT [id number] CHIEF COMPLAINT/REASON FOR VISIT Fever, postoperative. HISTORY OF PRESENT ILLNESS Denice comes in today to have herself evaluated. She underwent laparoscopic hysterectomy with uterosacral ligament suspension and bilateral salpingectomy and cystoscopy with lysis of adhesions back on 07/12/2014. It has been 2 weeks postop and Denice says that she continues to have some fever especially in the night time. There was a mention of immediate postop fever most likely secondary to medication. Her examination during her hospital stay was noted to be normal along with the blood work. She has seen Dr. Benoit back on 07/16/2014 for postop fever, again. Denice informs me that her morningtemperatures have ranged from 99-100 degrees Fahrenheit, while her afternoon temperatures have ranged from 98- 99. In the night time, however, after 10:00, she has been noticing some fever ranging from 100.8-101 degrees Fahrenheit today. Denice otherwise feels completely normal she says she has been doing a lot better postoperatively. She declines any headache, blurred vision, slurred speech, declines any sinus issues, declines any cough, cold, or runny nose. Also declines any chest pain, or shortness of breath. Her abdominal pain has been getting better and she has some tenderness in the incisionline. She also declines any bowel or bladder dysfunction. Also declines any burning urination. She says that she feels energetic. She has feels more energetic every day and apart from her fevers only in the nighttime, she has been recovering well. PAST MEDICAL/SURGICAL HISTORY Reviewed on 07/26/2014. SOCIAL HISTORY Reviewed on 07/26/2014. FAMILY HISTORY Reviewed on 07/26/2014. MEDICATIONS Reviewed on 07/26/2014. ALLERGIES Reviewed on 07/26/2014. SYSTEMS REVIEW As above. All other systems reviewed and negative. PHYSICAL EXAMINATION VITAL SIGNS: Reviewed. GENERAL: In no apparent distress, comfortable and cooperative. HEENT: Normocephalic, atraumatic. EOMI. PERRL. No conjunctival injection. Nose patent bilaterally without erythema or drainage. Oropharynx: [place] mucous membranes without lesions, exudate or drainage. NECK: Supple without lymphadenopathy. No thyromegaly or thyroid masses. CARDIOVASCULAR: Regular rate and rhythm without murmur, gallop or rubs. LUNGS: Clear to auscultation bilaterally without wheezing or rales. ABDOMEN: Soft, nontender and nondistended. Normal active positive bowel sounds. No hepatosplenomegaly or masses appreciated. Slight tenderness along the incision sites were noted. EXTREMITIES: No clubbing, cyanosis or edema. IMPRESSION/REPORT/PLAN Fever postoperatively. Various etiologies of these kinds of fever were discussed, immediate as well as delayed postop. Her physical examination, however, looks completely normal. Her recent lab work from 07/16/2014 were also noted to be normal. No significant events were noted pre and postoperatively.She has been eating well, voiding well. He declines any recent changes in her medication. We did discuss the possibility of getting a blood count as well as blood culture, chest x-ray, and a possible CT scan of the abdomen done if needed. She does see Dr. Benoit today at 3:15. I also did get a chance to talk to Dr. Benoit regarding her condition. We will get back together after her visit and plan for further workup if needed. Denice currently agrees with the plan. Vinod Orr/suly Electronically Signed By: CARLOS VANG MD On: 07/27/2014 08:01 AM Source: [facility] MHSDOLBEYNONRADSYS Document Id: [id number] documented in this encounter Miscellaneous Notes Miscellaneous - Carlos Vang M.D. - 07/26/2014 2:15 PM CDT Ambulatory Patient Summary [address] [place], [place] [id number] Visit Information Name: DENICE OWENS [facility] Number: [id number] Current Date: 07/26/2014 14:15:27 Physicians Attending Provider: CARLOS VANG MD Primary [...] Following Medications: Medication list as of 07-26-14 14:15 Attention: If you have any medications at [...] Electronically Signed By: CARLOS VANG MD Signed On:26-JUL-2014 14:15:21 Your Allergies & Intolerances Substance Reaction Symptoms [...] Your Upcoming Appointments Date Time Location Provider 07/26/2014 15:35 AL[facility] SAP BI DEVELOPER Cy MARTINEZ, Dio 08/10/2014 13:45 ALCL Dominga Estrada MD 08/21/2014 12:45 ALCL Dominga Estrada MD 08/28/2014 13:00 ALCL Dominga Estrada MD 09/04/2014 14:00 ALCL PMR Kristin MARTINEZ, Dominga Gamez Attention: Contact your local Clinic if further appointment detail needed. Your Goals/Additional instructions: Source: [facility] POWERCHART Document Id: [id number] Miscellaneous - Carlos Vang M.D. - 07/26/2014 2:15 PM CDT Ambulatory Discharge Medication List [address] [id number] Visit Information Name: HARDYBETTY DOWNEYBRITTNY NEW [facility] Number: [id number] Visit Date: 07/26/2014 14:15:25 Attending Provider: CARLOS VANG MD Primary Care [...] Following Medications: Medication list as of 07-26-14 14:15 Attention: If you have any medications at [...] Electronically Signed By: CARLOS VANG MD Signed On:26-JUL-2014 14:15:21 Additional Information: Source: [facility] POWERCHART Document Id: [id number] Miscellaneous - Lydia Monsivais L.P.N. - 07/26/2014 1:40 PM CDT Adult Messenger Office Intake/History Adult Messenger Office Intake/History Entered On: 07/26/2014 13:43 CDT Performed On: 07/26/2014 13:40 CDT by LYDIA MONSIVAIS [facility] Intake Chief Complaint : Hospital follwo up- fever after recent hysterectomy. Temperature Core : 37.5 DegC(Converted to: 99.5 DegF) Peripheral Pulse Rate : 80 /min Systolic Blood Pressure : 112 mmHg Diastolic Blood Pressure : 70 mmHg NIBP Mean : 84 mmHg BP Location : Right upper extremity Blood Pressure Cuff Size : Regular Height : 166 cm(Converted to: 5 ft 5 inch(es), 65 inch(es)) Actual Weight : 58.4 kg(Converted to: 128 lb 12 oz) Weight Source : Standing scale Dosing Weight Clinic : 58.4 kg Clinic BSA : 1.64 Body Mass Index : 21.19 kg/m2 LYDIA MONSIVAIS [facility] - 07/26/2014 13:40 CDT General Info Languages : Australian Is Patient Female and 13-50 no hysterectomy : No LYDIA MONSIVAIS [facility] - 07/26/2014 13:40 CDT Subjective Pain Symptoms : No LYDIA MONSIVAIS [facility] - 07/26/2014 13:40 CDT Dependent Habits Tobacco Use/Currently Using : No Exposure to Tobacco Smoke : Care provider denies smoking in home Smoking Status : Never smoker LYDIA MONSIVAIS [facility] - 07/26/2014 13:40 CDT Tobacco Use Grid Last Use : never LYDIA MONSIVAIS [facility] - 07/26/2014 13:40 CDT Caffeine Use Grid Caffeine Use : Current Type : Soft drinks Frequency : Weekly Amount : 3 cans per week LYDIA MONSIVAIS [facility] - 07/26/2014 13:40 CDT Recreational Drug Use Grid Drug Use : None LYDIA MONSIVAIS [facility] - 07/26/2014 13:40 CDT ID Screen Drug Resistant Organism : No Travel Within Last 21 Days : No Contact with someone with Ebola : No LYDIA MONSIVAIS LPN - 07/26/2014 13:40 CDT Source: [facility] WorldWinger Document Id: [id number] CDT!41 documented in this encounter Plan of Treatment Not on filedocumented as of this encounter Visit Diagnoses Not on filedocumented in this encounter Additional Health Concerns Assessment Noted Time PHQ-9 Depression Total Score: 2 05/04/2014 8:13 AM 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
--- OUTSIDE RECORDS SUMMARY | 2021-12-10 15:38 | XMS_ITS | Encounter Summary ---
:1980 Author Organization [facility] Address [address] [place] [address] Care Team Providers Name Role Phone Unavailable Primary Care Provider Unavailable Encounter Details Date Type Department Care Team Description 08/15/2014 Hospital Encounter [facility]X [facility] FAMILYPRA Carlos Vang M.D. 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 0 07/16/2014 IBUPROFEN ORAL ibuprofen 0 07/16/2014 MULTIVITAMIN WITH MINERALS Take 1 capsule by 0 ORAL mouth daily. documented as of this encounter Progress Notes Carlos Vang M.D. - 08/15/2014 2:02 PM CDT [id number] CHIEF COMPLAINT/REASON FOR VISIT 1. Dermatographic urticaria. 2. ADHD. HISTORY OF PRESENT ILLNESS Denice comes in today to have herself evaluated. She says that over the last couple of months she has been noticing some rash develop through her body. 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 This later spread to her entire body with significant amount of itchiness.She states that the blotchiness then spread to her back as well as legs and the thighs, which lastedfor a day or 2. This got better; however, since then she has been getting these welts approximately once every 2 to 3 days. They can last for an hour or so and then get better. She also complains of some significant amount of itchiness associated with this. She also has been noticing some small red palpable rashes along with this. She had an episode yesterday but none today. She has been using Benadryl as needed for the itchiness which does seem to calm things down; however, she complains of the rashes coming back again. She would like to have this further evaluated. The rashes are more predominantespecially in the evening. No other family members have noticed similar symptoms. She declines any contact with possible scabies or other transmissible infections. Denice also would like to give a trial of Adderall. She had been using Adderall XR 10 mg in the past only as needed. She would like to give a trial of 5 mg immediate release to help her with her studies, especially in the morning and noontime. PAST MEDICAL/SURGICAL HISTORY Reviewed on 08/15/2014. SOCIAL HISTORY Reviewed on 08/15/2014. FAMILY HISTORY Reviewed on 08/15/2014. MEDICATIONS Reviewed on 08/15/2014. ALLERGIES Reviewed on 08/15/2014. SYSTEMS REVIEW As above. All other systems reviewed and negative. PHYSICAL EXAMINATION VITAL SIGNS: Reviewed. GENERAL: Alert, awake and oriented x3. Not in distress. SKIN: Skin of the forearm as well as neck areas were examined. On inspection no significant deformity noted. No visible rashes noted today, no urticaria noted. However, dermatographism was positive on the right forearm. IMPRESSION/REPORT/PLAN 1. Dermatographic urticaria. Various management options were discussed with Denice. We also did discuss the difficulty in treating these kinds of issues. She has been using Benadryl. I have recommended that she could try using Marlene or cetirizine to see if the side effect of drowsiness can be better tolerated. I have also provided her with some hydroxyzine 25 mg tablet which can be used 4 times aday as needed for itchiness. If her symptoms do get worse, I have recommended that she let us know. She agrees with the plan. 2. Attention deficit hyperactivity disorder. A trial of Adderall 5 mg immediate release once a day as needed has been recommended. Prescription has been provided. Possible side effects were discussed. I will have Denice come back to us as needed now. She will update me on how things go. Vinod Orr/suly Electronically Signed By: CARLOS VANG MD On: 08/17/2014 12:37 PM Source: [facility] MHSDOLBEYNONRADSYS Document Id: [id number] documented in this encounter Miscellaneous Notes Miscellaneous - Conversion, Historical Provider Ser - 11/15/2014 9:39 AM CDT *Medication Refill Msg Document Contains Addenda Addendum by SHIRA GRIMALDO LPN on 15 November 2014 10:29:02 CDT Patient contacted and told that RX is ready for picker box operator from 4th floor front desk team member. Addendum by CARLOS VANG MD on 15 November 2014 10:06:18 CDT Approved Order:dextroamphetamine-amphetamine (dextroamphetamine-amphetamine 5 mg oral tablet) See Instructions 1 tab(s) PO DAILY AM AND NOON. Qty: 60 tab(s) Refills: 0 Substitutions Allowed Print - [id number] (Adderal) please call pt for picker box operator. Pt uses [facility]. Signed by CARLOS VANG MD 11/15/2014 10:06:13 Addendum by SHIRA GRIMALDO LPN on 15 November 2014 09:45:22 CDT From: SHIRA GRIMALDO LPN ([facility] Team 1 Nurse) To: CARLOS VANG MD; Sent: 11/15/2014 09:45:22 CDT Subject: Adderall On hold pending signature Order:dextroamphetamine-amphetamine (dextroamphetamine-amphetamine 5 mg oral tablet) See Instructions 1 tab(s) PO DAILY AM AND NOON. Qty: 60 tab(s) Refills: 0 Substitutions Allowed Print - [id number] (Adderal) please call pt for picker box operator. Pt uses [facility]. From: FANI RODRIGUES ([facility] Turbine Operator) To: [facility] Team 1 Nurse; Sent: 11/15/2014 09:39:05 CDT Subject: *Medication Refill Msg Caller is: ( X ) Patient ( ) Mother ( ) Father ( ) Spouse ( ) Daughter ( ) Son ( ) Pharmacy ( ) Other: Provider: [facility]: Name of Medications Needing Refill: ADHD Last Refill Date: Additional Information: Was told if she needs to increase due to school she may call in for this. Please advise and call Pt. Last / Future Appointment: Disposition: ( ) Send to Pharmacy ( ) Call to Pharmacy ( X ) Patient will picker box operator Script ( ) Mail Rxto Patient Source: [facility] POWERCHART Document Id: [id number] Miscellaneous - Carlos Vang M.D. - 08/15/2014 3:38 PM CDT Ambulatory Patient Summary [address] [place] [id number] Visit Information Name: DENICE OWENS [facility] Number: [id number] Current Date: 08/15/2014 15:38:27 Physicians Attending Provider: CARLOS VANG MD Primary [...] the morning) AM & Noon / (Adderal) New Routed to [facility] docusate (Colace 100 mg oral capsule) 1 cap, Oral, two times a day HYDROcodone-acetaminophen (Wilmore 5 mg-325 mg oral tablet) 1 Tablet(s), Oral, once a day as needed for Pain No more than 4,000mg acetaminophen/24hrs hydrOXYzine (hydrOXYzine pamoate 25 mg oral capsule) 1 cap, Oral, four times a day as needed for itching x 7 day(s) New Routed to [address] [id number] ibuprofen (ibuprofen) multivitamin with minerals (multivitamin with minerals Multiple Vitamins with Zinc oral capsule) 1 cap, Oral, once a day with magnesium Stop Taking the Following Medications: Medication list as of 08-15-14 15:38 Attention: If you have any medications at [...] Electronically Signed By: CARLOS VANG MD Signed On:15-AUG-2014 15:38:19 Your Allergies & Intolerances Substance Reaction Symptoms [...] Your Upcoming Appointments Date Time Location Provider 08/21/2014 12:45 ALCL PMR Kristin MARTINEZ, Dominga Gamez 08/24/2014 13:45 [facility]CL DICTAPHONE OPERATOR Cy MARTINEZ, Dio 08/28/2014 13:00 ALCL PMJesse Foster MD, Dominga Gamez 09/04/2014 14:00 ALCL PMJesse Foster MD, Dominga Gamez Attention: Contact your local Clinic if further appointment detail needed. Your Goals/Additional instructions: Source: [facility] POWERCHART Document Id: [id number] Miscellaneous - Carlos Vang M.D. - 08/15/2014 3:38 PM CDT Ambulatory Discharge Medication List [address] [id number] Visit Information Name: DENICE OWENS [facility] Number: [id number] Visit Date: 08/15/2014 15:38:26 Attending Provider: CARLOS VANG MD Primary Care [...] the morning) AM & Noon / (Adderal) New Routed to [employer] docusate (Colace 100 mg oral capsule) 1 cap, Oral, two times a day HYDROcodone-acetaminophen (Wilmore 5 mg-325 mg oral tablet) 1 Tablet(s), Oral, once a day as needed for Pain No more than 4,000mg acetaminophen/24hrs hydrOXYzine (hydrOXYzine pamoate 25 mg oral capsule) 1 cap, Oral, four times a day as needed for itching x 7 day(s) New Routed to [address] [id number] ibuprofen (ibuprofen) multivitamin with minerals (multivitamin with minerals Multiple Vitamins with Zinc oral capsule) 1 cap, Oral, once a day with magnesium Stop Taking the Following Medications: Medication list as of 08-15-14 15:38 Attention: If you have any medications at [...] Electronically Signed By: CARLOS VANG MD Signed On:15-AUG-2014 15:38:19 Additional Information: Source: [facility] POWERCHART Document Id: [id number] Miscellaneous - Lydia Monsivais, L.P.N. - 08/15/2014 2:30 PM CDT Adult Toe Pounder Intake/History Adult Toe Pounder Intake/History Entered On: 08/15/2014 14:33 CDT Performed On: 08/15/2014 14:30 CDT by LYDIA MONSIVAIS LPN Intake Chief Complaint : medication refills and hives. Temperature Core : 37.7 DegC(Converted to: 99.9 DegF) Peripheral Pulse Rate : 80 /min Systolic Blood Pressure : 118 mmHg Diastolic Blood Pressure : 74 mmHg NIBP Mean : 89 mmHg BP Location : Right upper extremity Blood Pressure Cuff Size : Regular Height : 166 cm(Converted to: 5 ft 5 inch(es), 65 inch(es)) Actual Weight : 58.7 kg(Converted to: 129 lb 7 oz) Weight Source : Standing scale Dosing Weight Clinic : 58.7 kg Clinic BSA : 1.65 Body Mass Index : 21.3 kg/m2 LYDIA MONSIVAIS [facility] - 08/15/2014 14:30 CDT General Info Information Given By : Patient Languages : Ivorian Is Patient Female and 13-50 no hysterectomy : No LYDIA MONSIVAIS [facility] 08/15/2014 14:30 CDT Subjective Pain Symptoms : LYDIA Foley [facility] 08/15/2014 14:30 CDT Dependent Habits Tobacco Use/Currently Using : No Exposure to Tobacco Smoke : Care provider denies smoking in home Smoking Status : Never smoker LYDIA MONSIVAIS [facility] 08/15/2014 14:30 CDT Tobacco Use Grid Last Use : never LYDIA MONSIVAIS [facility] 08/15/2014 14:30 CDT Caffeine Use Grid Caffeine Use : Current Type : Soft drinks Frequency : Weekly Amount : 3 cans per week LYDIA MONSIVAIS [facility] 08/15/2014 14:30 CDT Recreational Drug Use Grid Drug Use : None LYDIA MONSIVAIS [facility] 08/15/2014 14:30 CDT ID Screen Drug Resistant Organism : No Travel Within Last 21 Days : No Contact with someone with Ebola : No LYDIA MONSIVAIS [facility] 08/15/2014 14:30 CDT Source: [employer] Document Id: [id number] CDT!42 documented in this encounter Plan of Treatment Not on filedocumented as of this encounter Visit Diagnoses Not on filedocumented in this encounter Additional Health Concerns Assessment Noted Time PHQ-9 Depression Total Score: 2 05/04/2014 8:13 AM FINISHER HAND documented as of this encounter
--- OUTSIDE RECORDS SUMMARY | 2021-12-10 15:38 | XMS_ITS | Encounter Summary ---
:1980 Author Organization [facility] Address [address] [place] [address] Care Team Providers Name Role Phone Unavailable Primary Care Provider Unavailable Encounter Details Date Type Department Care Team Description 05/25/2014 Hospital Encounter HX [facility] Joycelyn Capps, NGHIA, C.N.P. 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 documented as of this encounter Miscellaneous Notes Miscellaneous - Chelsea Kim, L.P.N. - 05/25/2014 3:08 PM RISK LEAD Adult Despatching And Receiving Clerk Intake/History Adult Despatching And Receiving Clerk Intake/History Entered On: 05/25/2014 15:09 RISK LEAD Performed On: 05/25/2014 15:08 RISK LEAD by CHELSEA KIM LPN Intake Chief Complaint : Cramping and pelvic pain Height : 166 cm(Converted to: 5 ft 5 inch(es), 65 inch(es)) CHELSEA KIM LPN - 05/25/2014 15:08 RISK LEAD General Info Information Given By : Patient Languages : Citizen Of [place] Is Patient Female and 13-50 no hysterectomy : Yes Status : Patient denies Are you ? : No CHELSEA KIM [facility] 05/25/2014 15:08 RISK LEAD Subjective Pain Symptoms : Yes CHELSEA KIM [facility] 05/25/2014 15:08 RISK LEAD Pain Scale Pain Scale Verbal 0-10 : Open CHELSEA KIM [facility] 05/25/2014 15:08 RISK LEAD Pain Pain Assessment Grid Pain 1 Location : Pelvic Intensity : 9 CHELSEA KIM [facility] 05/25/2014 15:08 RISK LEAD Dependent Habits Tobacco Use/Currently Using : No Exposure to Tobacco Smoke : Care provider denies smoking in home Smoking Status : Never smoker CHELSEA KIM [facility] 05/25/2014 15:08 RISK LEAD Tobacco Use Grid Last Use : never CHELSEA KIM [facility] 05/25/2014 15:08 RISK LEAD Caffeine Use Grid Caffeine Use : Current Type : Soft drinks Frequency : Weekly Amount : 3 cans per week CHELSEA KIM [facility] 05/25/2014 15:08 RISK LEAD Recreational Drug Use Grid Drug Use : None CHELSEA KIM [facility] 05/25/2014 15:08 RISK LEAD ID Screen Drug Resistant Organism : No Travel Within Last 21 Days : No CHELSEA KIM [facility] 05/25/2014 15:08 RISK LEAD [facility] [employer] Document Id: [id number] RISK LEAD!38 LEAD documented in this encounter Plan of Treatment Not on filedocumented as of this encounter Visit Diagnoses Not on filedocumented in this encounter Additional Health Concerns Assessment Noted Time PHQ-9 Depression Total Score: 2 05/04/2014 8:13 AM RISK LEAD documented as of this encounter
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
--- OUTSIDE RECORDS SUMMARY | 2021-12-10 15:38 | XMS_ITS | Encounter Summary ---
:1980 Author Organization [facility] Address [address] [place] [address] Care Team Providers Name Role Phone Unavailable Primary Care Provider Unavailable Encounter Details Date Type Department Care Team Description 07/11/2014 Hospital Encounter HX [facility] Dio Wilkins M.D. 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 documented as of this encounter Plan of Treatment Not on filedocumented as of this encounter Procedures Procedure Name Priority Date/Time Associated Diagnosis Comme nts ABSC GEL Routine 07/11/2014 10:40 AM Results for this CDT procedure are i n the results section. AUTOMATED Routine 07/11/2014 10:40 AM Results for this DIFFERENTIAL, B CDT procedure ar e in the results section. ABORH, RBC Routine 07/11/2014 10:40 AM Results for this CDT procedure are i n the results section. CBC WITH Routine 07/11/2014 10:40 AM Results for this DIFFERENTIAL, B CDT procedure ar e in the results section. documented in this encounter Results Automated Differential (07/11/2014 10:40 AM CDT) P athologist Signature Absolute 2.44 1.70 - POWERCHART Neutrophils 7.00 109L Lymphocytes 2.26 0.90 - POWERCHART 2.90 X109L Monocytes 0.47 0.30 - POWERCHART 0.90 X109L Eosinophils 0.11 0.05 - POWERCHART 0.50 X109L Absolute 0.04 0.00 - POWERCHART Basophil 0.30 X109L Specimen Anatomical Collection Method Collection Time Receive d Time (Source) Location / / Volume Laterality Blood 07/11/2014 10:40 07/11/2014 AM CDT 10:40 AM CDT Dio Benoit M.D. LAB BLOOD ADD-ON Performing Organization Address City/State/ZIP Code Phon e Number POWERCHART CBC with Differential (07/11/2014 10:40 AM CDT) athologist Signature Leukocytes 5.3 3.4 - 10.5 POWERCHART X109L Erythrocytes 4.37 3.90 - 5.03 POWERCHART H5480A Hemoglobin 13.4 12.0 - 15.5 POWERCHART GDL Hematocrit 40.8 34.9 - 44.5 POWERCHART MCV 93.4 82.0 - 98.0 POWERCHART FL HX RDW 12.9 11.9 - 15.5 POWERCHART Platelet Count 187 150 - 450 POWERCHART X109L Specimen (Source) Anatomical Collection Method Collection Time Re ceived Time Location / / Volume Laterality Blood 07/11/2014 10:40 AM CDT Dio Benoit M.D. LAB BLOOD ADD-ON Performing Organization Address City/State/ZIP Code Phon e Number POWERCHART ABSC GEL (07/11/2014 10:40 AM CDT) [facility] gist Method Time Signature HX ABSC Gel Negative ABSC POWERCHART Specimen (Source) Anatomical Collection Method Collection Time Re ceived Time Location / / Volume Laterality 07/11/2014 10:40 AM CDT Dio Benoit M.D. LAB HISTORICAL ORDERS Performing Organization Address City/State/ZIP Code Phon e Number POWERCHART ABO/Rh (07/11/2014 10:40 AM CDT) athologist Signature ABORh Interp A POS POWERCHART Specimen (Source) Anatomical Collection Method Collection Time Re ceived Time Location / / Volume Laterality 07/11/2014 10:40 AM CDT Dio Benoit M.D. LAB BLOOD BANK TEST ORDERABL ES Performing Organization Address City/State/ZIP Code Phon e Number POWERCHART documented in this encounter Visit Diagnoses Not on filedocumented in this encounter Additional Health Concerns Assessment Noted Time PHQ-9 Depression Total Score: 2 05/04/2014 8:13 AM MATERIALS COORDINATOR documented as of this encounter
--- OUTSIDE RECORDS SUMMARY | 2021-12-10 15:38 | XMS_ITS | Encounter Summary ---
:1980 Author Organization [facility] Address [address] [place] [address] Care Team Providers Name Role Phone Unavailable Primary Care Provider Unavailable Encounter Details Date Type Department Care Team Description 08/24/[address] [facility] Lesley Rodriguez i, M.D. 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 0 07/16/2014 IBUPROFEN ORAL ibuprofen 0 07/16/2014 MULTIVITAMIN WITH MINERALS Take 1 capsule by 0 ORAL mouth daily. documented as of this encounter Progress Notes Dio Dickson M.D. - 08/24/2014 1:49 PM CDT [id number] CHIEF COMPLAINT/REASON FOR VISIT Presenting for postop check. HISTORY OF PRESENT ILLNESS Ms. Galdamez is a 34-year-old lady status post laparoscopic hysterectomy, presents today. The patient has course complicated by fever of unknown origin. This has resolved spontaneously. During her evaluation, she did have a CT scan of the pelvis that was nonrevealing. At this point, patient reports that she has not experienced any fever, reports since her last evaluation reports no pelvic pain today, reports that she has experienced some spotting yesterday. Denies any significant discharge. Denies any troubles with urination or change in bowel movements. PHYSICAL EXAMINATION GENERAL: No acute distress. ABDOMEN: Soft, nontender. No guarding. No rebound. Incisions have healed well. PELVIC: External genitalia within normal limits. Bartholin's and [place]um[place]'s gland are normal. Speculum inserted. The vaginal canal was inspected. Appeared to be free of any abnormal discharge. The vaginalapex appeared to be healed well. There are very minor areas of granulation tissue noted. This was treated with silver nitrate. The apex was put on stretch and palpated and appeared to be very well closed. Bimanual exam reveals no masses in the pelvis. The apex very well closed and tight. Patient tolerated the exam very well. IMPRESSION/REPORT/PLAN Patient was instructed to avoid intercourse for 2 weeks and then to start having intercourse and I did explain how to resume intercourse after hysterectomy. Patient is to follow up as needed. Dio Dickson M.D./suly Electronically Signed By: DIO DICKSON MD On: 09/16/2014 09:28 PM Source: [facility] MHSDOLBEYNONRADSYS Document Id: [id number] documented in this encounter Miscellaneous Notes Miscellaneous - Nanci Qureshi, RCinthiaN. - 09/12/2014 12:43 PM CDT Addendum by OLGA NUNES RN on 12 Sep 2014 13:50:01 CDT From: OLGA NUNES RN ([facility] Obstetrics/Gynecology Nurse Line) To: DIO DICKSON MD; Cc: [facility] Dickson Nurse; Sent: 09/12/2014 13:50:01 CDT Subject: RE: Patient contacted and added to the schedule today at 1350. Thank you. Addendum by DIO DICKSON MD on 12 Sep 2014 13:43:41 CDT From: DIO DICKSON MD To: [place] Obstetrics/Gynecology Nurse Line; Sent: 09/12/2014 13:43:41 CDT Subject: RE: let her come inn for check From: NANCI QURESHI RN ([place] Obstetrics/Gynecology Nurse Line) To: DIO DICKSON MD; Sent: 09/12/2014 12:43:01 CDT Pt. had a hysterectomy in June. She started spotting 11 days ago ago and it continues. No pain or cramping. She is concerned as it is consistent. Please advise. Ph#[phone]. Thanks. Source: [facility] [employer] Document Id: [id number] Miscellaneous - Aristeo Joyce RCinthiaNCinthia - 08/24/2014 2:55 PM CDT Semiconductor Engineer Documentation Semiconductor Engineer Documentation Entered On: 08/24/2014 14:56 CDT Performed On: 08/24/2014 14:55 CDT by ARISTEO JOYCE LPN Semiconductor Engineer Documentation CD Procedure Performed : post op pelvic exam CD Semiconductor Engineer Present : Yes CD Semiconductor Engineer Name : aristeo Accompanied By : Alone ARISTEO JOYCE LPN - 08/24/2014 14:55 CDT Source: [facility] [employer] Document Id: [id number] CDT!6 Miscellaneous - Dio Dickson M.D. - 08/24/2014 2:24 PM CDT Ambulatory Patient Summary [facility] [address] [facility] [place] [id number] Visit Information Name: DENICE OWENS [facility] Number: [id number] Current Date: 08/24/2014 14:24:28 Physicians Attending Provider: DIO DICKSON MD Primary [...] morning) AM & Noon / (Adderal) HYDROcodone-acetaminophen ([place] 5 mg-325 mg oral tablet) 1 Tablet(s), Oral, once a day as needed for Pain No more than 4,000mg acetaminophen/24hrs ibuprofen (ibuprofen) multivitamin with minerals (multivitamin with minerals Multiple Vitamins with Zinc oral capsule) 1 cap, Oral, once a day with magnesium Stop Taking the Following Medications: Medication list as of 08-24-14 14:24 Attention: If you have any medications at [...] Your Upcoming Appointments Date Time Location Provider 08/28/2014 13:00 [facility] PMDominga Flores MD 09/04/2014 14:00 ALCL PMR Kristin MARTINEZ, Dominga Gamez Attention: Contact your local Clinic if further appointment detail needed. Your Goals/Additional instructions: Source: [facility] POWERCHART Document Id: [id number] Miscellaneous - Dio Dickson M.D. - 08/24/2014 2:24 PM CDT Ambulatory Discharge Medication List [address] [id number] Visit Information Name: DENICE OWENS [facility] Number: [id number] Visit Date: 08/24/2014 14:24:26 Attending Provider: DIO DICKSON MD Primary Care [...] morning) AM & Noon / (Adderal) HYDROcodone-acetaminophen ([place] 5 mg-325 mg oral tablet) 1 Tablet(s), Oral, once a day as needed for Pain No more than 4,000mg acetaminophen/24hrs ibuprofen (ibuprofen) multivitamin with minerals (multivitamin with minerals Multiple Vitamins with Zinc oral capsule) 1 cap, Oral, once a day with magnesium Stop Taking the Following Medications: Medication list as of 08-24-14 14:24 Attention: If you have any medications at [...] Signed By: Signed On: Additional Information: Source: [facility] POWERCHART Document Id: [id number] Miscellaneous - Aristeo Joyce R.N. 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 Intake/History Entered On: 08/24/2014 13:58 CDT Performed On: 08/24/2014 13:57 CDT by ARISTEO JOYCE LPN Intake Chief Complaint : post op check Temperature Core : 37.2 DegC(Converted to: 99.0 DegF) Height : 166 cm(Converted to: 5 ft 5 inch(es), 65 inch(es)) ARISTEO JOYCE [facility] - 08/24/2014 13:57 CDT General Info Information Given By : Patient Languages : Syriac Is Patient Female and 13-50 no hysterectomy : No ARISTEO JOYCE LPN 08/24/2014 13:57 CDT Subjective Pain Symptoms : No ARISTEO JOYCE LPN 08/24/2014 13:57 CDT Dependent Habits Tobacco Use/Currently Using : No Exposure to Tobacco Smoke : Care provider denies smoking in home Smoking Status : Never smoker ARISTEO JOYCE LPN 08/24/2014 13:57 CDT Caffeine Use Grid Caffeine Use : Current Type : Soft drinks Frequency : Weekly Amount : 3 cans per week ARISTEO JOYCE LPN 08/24/2014 13:57 CDT Recreational Drug Use Grid Drug Use : None ARISTEO JOYCE LPN 08/24/2014 13:57 CDT ID Screen Drug Resistant Organism : No Travel Within Last 21 Days : No Contact with someone with Ebola : No ARISTEO JOYCE LPN - 08/24/2014 13:57 CDT Source: [facility] [employer] Document Id: [id number] CDT!28 documented in this encounter Plan of Treatment Not on filedocumented as of this encounter Visit Diagnoses Not on filedocumented in this encounter Additional Health Concerns Assessment Noted Time PHQ-9 Depression Total Score: 2 05/04/2014 8:13 AM 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
--- OUTSIDE RECORDS SUMMARY | 2021-12-10 15:38 | XMS_ITS | Encounter Summary ---
:1980 Author Organization [facility] Address [address] [place] [address] Care Team Providers Name Role Phone Unavailable Primary Care Provider Unavailable Encounter Details Date Type Department Care Team Description 06/11/2014 Hospital Encounter HX [facility] OBLesley Farrell i, M.D. 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 documented as of this encounter Progress Notes Dio Dickson M.D. - 06/11/2014 2:38 PM CST [id number] CHIEF COMPLAINT/REASON FOR VISIT Presenting for followup. HISTORY OF PRESENT ILLNESS Ms. Galdamez is a 34-year-old lady who presents to discuss her level of activity and pain management. Previously, I evaluated her for pelvic pain. 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 The patient elected to proceed with a hysterectomy. Initially, we planned to perform her procedure on June 14. The patient then called and wanted to schedule her surgery on July 12. Today, she presents, reports that she is scheduled to have training through [employer], at around the time where she expects her cyclical pain to start. She was requesting to be taken off work for that period. Given her the intensity of the pain she has been experiencing, we decided togive her time off as of today. So, she will not have to be involved in any kind of exercises or training protocols until after her surgical procedure. Please see printed note for details of the plan. In regards to pain management, patient has used [place]. She reports that this has not helped with herpain. She is requesting to get something stronger. Patient report that she has received Percocet in the past and feels that this might help. Note also that the patient is already on Motrin. She takes Motrin 800 mg with the surgical pain and she alternates that with the narcotic pills. So, I did give her a prescription for Percocet 24 tablets. She is to use it at around the time when her cyclical painstarts. Patient is scheduled to follow up for preoperative clearance on July 06. All her questions were answered. Total time spent with the patient 15 minutes, more than 50% of the time was spent in counseling. Dio Dickson M.D./suly Electronically Signed By: DIO DICKSON MD On: 06/22/2014 01:26 PM Source: [facility] MHSDOLBEYNONRADSYS Document Id: [id number] MILL PROGRAMMER documented in this encounter Miscellaneous Notes Miscellaneous - Dio Dickson M.D. - 06/11/2014 4:23 PM CST Ambulatory Patient Summary [facility] [address] [facility] [place] [id number] Visit Information Name: DENICE OWENS [facility] Number: [id number] Current Date: 06/11/2014 16:23:27 Physicians Attending Provider: DIO DICKSON MD Primary [...] 7 day(s) No more than 4,000mg acetaminophen/24hrs This is a CHANGE Routed to Printer tiZANidine (tiZANidine 2 mg oral tablet) 1 Tablet(s), Oral, three times a day as needed for muscle spasm, pain Stop Taking the Following Medications: Medication list as of 06-11-14 16:23 Attention: If you have any medications at [...] Your Upcoming Appointments Date Time Location Provider 06/15/2014 12:45 [facility] PMJesse Foster MD, Dominga Gamez 06/22/2014 12:45 [facility] PMJesse Foster MD, Dominga Gamez 06/29/2014 12:45 [facility] PMJesse Foster MD, Dominga Gamez 07/06/2014 09:55 [facility] PRODUCTION SUPPORT SPECIALIST Dio Dickson MD 07/06/2014 12:45 [facility] PMJesse Foster MD, Dominga Gamez 07/13/2014 12:45 [facility] PMJesse Foster MD, Dominga Gamez 07/20/2014 12:45 [facility] PMJesse Foster MD, Dominga Gamez Attention: Contact your local Clinic if further appointment detail needed. Your Goals/Additional instructions: Source: [facility] POWERCHART Document Id: [id number] MILL PROGRAMMER Miscellaneous - Dio Dickson M.D. - 06/11/2014 4:23 PM CST Ambulatory Discharge Medication List [address] [id number] Visit Information Name: DENICE OWENS [facility] Number: [id number] Visit Date: 06/11/2014 16:23:26 Attending Provider: DIO DICKSON MD Primary Care [...] 7 day(s) No more than 4,000mg acetaminophen/24hrs This is a CHANGE Routed to Printer tiZANidine (tiZANidine 2 mg oral tablet) 1 Tablet(s), Oral, three times a day as needed for muscle spasm, pain Stop Taking the Following Medications: Medication list as of 06-11-14 16:23 Attention: If you have any medications at [...] Signed By: Signed On: Additional Information: Source: [facility] POWERCHART Document Id: [id number] MILL PROGRAMMER Miscellaneous - Dio Dickson M.D. - 06/11/2014 2:56 PM CST Work Excuse 11 June 2014 DENICE ROMAN [address] [place] [phone] Dear DENICE OWENS, Please allow Ms Owens to be excused from any duties with the [employer] as of 06/11/2014 and for 6 weeks after her planned surgical procedure on 07/12/2014. Sincerely, DIO DICKSON [address] [facility] [place] [place] [address] Electronic Signature Electronically Signed By: DIO DICKSON MD On: 11 June 2014 This document has images extracted. Source: [facility] POWERCHART Document Id: [id number] Miscellaneous - Kaylyn Gould C.M.A. - 06/11/2014 2:44 PM CST Adult Bottom Wheeler Intake/History Adult Bottom Wheeler Intake/History Entered On: 06/11/2014 14:45 CNC MILL PROGRAMMER Performed On: 06/11/2014 14:44 CNC MILL PROGRAMMER by KAYLYN GOULD [facility] Intake Chief Complaint : Talk regarding surgery and paperwork for [facility] Ambulatory Intake Additional Information : vitals normal within 30 days Height : 166 cm(Converted to: 5 ft 5 inch(es), 65 inch(es)) KAYLYN GOULD [facility] - 06/11/2014 14:44 CNC MILL PROGRAMMER General Info Information Given By : Patient Languages : British Is Patient Female and 13-50 no hysterectomy : Yes Status : Patient denies Are you ? : No KAYLYN GOULD [facility] - 06/11/2014 14:44 CNC MILL PROGRAMMER Subjective Pain Symptoms : No KAYLYN GOULD [facility] - 06/11/2014 14:44 CNC MILL PROGRAMMER Dependent Habits Tobacco Use/Currently Using : No Exposure to Tobacco Smoke : Care provider denies smoking in home Smoking Status : Never smoker KAYLYN GOULD [facility] - 06/11/2014 14:44 CNC MILL PROGRAMMER Tobacco Use Grid Last Use : never KYALYN GOULD [facility] - 06/11/2014 14:44 CNC MILL PROGRAMMER Caffeine Use Grid Caffeine Use : Current Type : Soft drinks Frequency : Weekly Amount : 3 cans per week KAYLYN GOULD [facility] - 06/11/2014 14:44 CNC MILL PROGRAMMER Recreational Drug Use Grid Drug Use : None KAYLYN GOULD [facility] - 06/11/2014 14:44 CNC MILL PROGRAMMER ID Screen Drug Resistant Organism : No Travel Within Last 21 Days : No KAYLYN GOULD BUILDING CUSTODIAN - 06/11/2014 14:44 CNC MILL PROGRAMMER Source: [facility] POWERCHART Document Id: [id number] CNC MILL PROGRAMMER!32 MILL PROGRAMMER documented in this encounter Plan of Treatment Not on filedocumented as of this encounter Visit Diagnoses Not on filedocumented in this encounter Additional Health Concerns Assessment Noted Time PHQ-9 Depression Total Score: 2 05/04/2014 8:13 AM CNC MILL PROGRAMMER documented as of this encounter
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
--- OUTSIDE RECORDS SUMMARY | 2021-12-10 15:38 | XMS_ITS | Encounter Summary ---
:1980 Author Organization [facility] Address [address] [place] [address] Care Team Providers Name Role Phone Unavailable Primary Care Provider Unavailable Encounter Details Date Type Department Care Team Description 10/10/2014 Hospital Encounter HX [facility] PMR Dominga Foster M.D. 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 0 07/16/2014 IBUPROFEN ORAL ibuprofen 0 07/16/2014 MULTIVITAMIN WITH MINERALS Take 1 capsule by 0 ORAL mouth daily. documented as of this encounter Progress Notes Dominga Foster M.D. - 10/10/2014 2:04 PM CDT [id number] Jeannine returns for acupuncture treatment. She states she feels much better with acupuncture treatment. The neck pain is almost resolved. She has continuous headache pain in the right side, the parietal area, and pain in the suboccipital region. She rated the pain level today 3 on a scale 0 to 10 in the headache. No neck and shoulders pain. No thoracic pain. Prolonged driving sitting makes her pain worse. At that time pain level goes up to 7. She takes Vicodin for severe pain. She used to take every day basis but now she takes very occasionally, once a week. She wants me to refill her Vicodin medication. She used to have severe pain up to 9 on a scale 0 to 10. PHYSICAL EXAMINATION GENERAL: Patient is a 34-year-old female not in acute distress. MENTAL STATUS: Oriented to person, place. Displays appropriate mood and affect. MUSCULOSKELETAL: Ambulation without assist device. She still has tenderness in the right suboccipital region. Tight muscle in the upper cervical paraspinal, but there is no significant tenderness notedin the lower cervical paraspinal and thoracic paraspinal and upper trapezius muscle. There is no skin lesion noted. IMPRESSION/REPORT/PLAN Chronic neck and shoulders pain and cervicogenic headache pain. She is making progress with acupuncture treatment. Current pain level 3 on a scale 0 to 10. At its worst it goes up to 7 on a scale 0 to 10. I renewed her Vicodin medication. She will take very occasionally, 15 tablets were given without refill. She wishes to go ahead with acupuncture treatment. Written informed consent was obtained. PROCEDURE Patient was in the prone position. Skin was prepped with the ChloraPrep preparation. Acupuncture wascarried out as follows: 1. Principal Aurora treatment using point BL 40, BL 60, KI 3, KI 10, HT 7 bilaterally with electrical stimulation, 10 minutes. 2. Local neck treatment using points, GV15, GV 16, right GB 20, GB 21, dry needling was performed inthe right upper trapezius muscle belly (still there is a slight muscle twitching response with dry needling), duration 15 minutes without electrical stimulation. 3. Right ear acupuncture treatment using points, Mandujano Men, point zero, tranquilizer, muscle cerebral, hypothalamus, hippocampus, amygdala without electrical stimulation, duration 15 minutes. 4. Si Mandujano Diaz (star) with electrical stimulation in a glynn chain, frequency 15 hertz, duration 15minutes. Patient tolerated the procedure well. Dominga Foster M.D./suly Electronically Signed By: DOMINGA FOSTER MD On: 10/11/2014 04:39 PM Modified by and Electronically Signed by: DOMINGA FOSTER MD On: 10/11/2014 04:39 PM Source: [facility] MHSDOLBEYNONRADSYS Document Id: [id number] documented in this encounter Miscellaneous Notes Miscellaneous - Dominga Foster M.D. - 10/10/2014 3:20 PM CDT Ambulatory Patient Summary [address] [place] [id number] Visit Information Name: JEANNINE OWENS [facility] Number: [id number] Current Date: 10/10/2014 15:20:07 Physicians Attending Provider: DOMINGA FOSTER MD Primary [...] This is a CHANGE Routed to Printer ibuprofen (ibuprofen) multivitamin with minerals (multivitamin with minerals Multiple Vitamins with Zinc oral capsule) 1 cap, Oral, once a day with magnesium Stop Taking the Following Medications: Medication list as of 10-10-14 15:20 Attention: If you have any medications [...] Electronically Signed By: DOMINGA FOSTER MD Signed On:10-OCT-2014 15:20:00 Your Allergies & Intolerances Substance Reaction Symptoms [...] Your Upcoming Appointments Date Time Location Provider 10/17/2014 13:45 ALCL PMR Dominga Foster MD 10/24/2014 13:30 ALCL PMR Dominga Foster MD 10/31/2014 13:15 ALCL PMR Dominga Foster MD Attention: Contact your local Clinic if further appointment detail needed. Your Goals/Additional instructions: Source: [facility] POWERCHART Document Id: [id number] Miscellaneous - Dominga Foster M.D. - 10/10/2014 3:20 PM CDT Ambulatory Discharge Medication List [address] [id number] Visit Information Name: JEANNINE OWENS [facility] Number: [id number] Visit Date: 10/10/2014 15:20:06 Attending Provider: DOMINGA FOSTER MD Primary Care [...] This is a CHANGE Routed to Printer ibuprofen (ibuprofen) multivitamin with minerals (multivitamin with minerals Multiple Vitamins with Zinc oral capsule) 1 cap, Oral, once a day with magnesium Stop Taking the Following Medications: Medication list as of 10-10-14 15:20 Attention: If you have any medications [...] Electronically Signed By: DOMINGA FOSTER MD Signed On:10-OCT-2014 15:20:00 Additional Information: Source: [facility] POWERCHART Document Id: [id number] Miscellaneous - Cassie Mederos L.P.N. 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 Primary Care Sales Intake/History Entered On: 10/10/2014 14:28 CDT Performed On: 10/10/2014 14:27 CDT by CASSIE MEDEROS LPN Intake Chief Complaint : Acupuncture for neck, head and R shoulder Height : 166 cm(Converted to: 5 ft 5 inch(es), 65 inch(es)) CASSIE MEDEROS LPN - 10/10/2014 14:27 CDT General Info Information Given By : Patient Languages : Armenian Is Patient Female and 13-50 no hysterectomy : No CA CASSIE Peña LPN - 10/10/2014 14:27 CDT Subjective Pain Symptoms : Yes CASSIE MEDEROS LPN - 10/10/2014 14:27 CDT Pain Scale Pain Scale Verbal 0-10 : Open CASSIE MEDEROS LPN - 10/10/2014 14:27 CDT Pain Pain Assessment Grid Pain 1 Pain 2 Location : Neck Shoulder Laterality : Right Right Intensity : 3 3 CASSIE MEDEROS LPN - 10/10/2014 14:27 CDT CASSIE MEDEROS LPN - 10/10/2014 14:27 CDT Dependent Habits Tobacco Use/Currently Using : No Exposure to Tobacco Smoke : Care provider denies smoking in home Smoking Status : Never smoker CASSIE MEDEROS LPN - 10/10/2014 14:27 CDT Caffeine Use Grid Caffeine Use : Current Type : Soft drinks Frequency : Weekly Amount : 3 cans per week CASSIE MEDEROS LPN - 10/10/2014 14:27 CDT Recreational Drug Use Grid Drug Use : None CASSIE MEDEROS LPN - 10/10/2014 14:27 CDT Source: [employer] Document Id: [id number]!35 documented in this encounter Plan of Treatment Not on filedocumented as of this encounter Visit Diagnoses Not on filedocumented in this encounter Additional Health Concerns Assessment Noted Time PHQ-9 Depression Total Score: 2 05/04/2014 8:13 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
--- OUTSIDE RECORDS SUMMARY | 2021-12-10 15:38 | XMS_ITS | Encounter Summary ---
:1980 Author Organization [facility] Address [address] [place] [address] Care Team Providers Name Role Phone Unavailable Primary Care Provider Unavailable Encounter Details Date Type Department Care Team Description 05/25/2014 Hospital Encounter HX [facility] Lesley Rodriguez i, M.D. 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 documented as of this encounter Progress Notes Dio Dickson M.D. - 05/25/2014 3:31 PM CST [id number] CHIEF COMPLAINT/REASON FOR VISIT Presenting for pelvic pain. HISTORY OF PRESENT ILLNESS Ms. Galdamez is a 33-year-old lady who presents for the above reason. The patient reports that the pain has been going on for 3 to 4 weeks now, the pain intensity reaching up to 9 out of 10. The pain is located in the pelvic area nonradiating. Patient has been trying to take Vicodin, has tried 800 mg of ibuprofen with only partial response. Denies any exacerbating factor and reports that she has not been finding any significant relieving factors. Patient denies any bleeding or abnormal discharge. Denies any concerns about sexually- transmitted infection. Reports that the pain history dates back to several months ago where she was experiencing cyclic pelvic pain, until the last 2 to 3 weeks where she had continuous pain. The patient has history of endometrial ablation with bilateral tubal ligation.She experiences very light cycles which are basically spotting for a day. The patient reports that the pain mostly happens around the time of her periods. Patient denies any nausea or vomiting. Denies any fever or chills. Denies any burning or pain with urination. Denies any troubles with bowel movements. SYSTEMS REVIEW Otherwise negative. PAST MEDICAL/SURGICAL HISTORY PAST MEDICAL HISTORY: Reviewed. Notable for: ADHD. History of heart palpitations evaluated through Cardiology with negative evaluation. PAST SURGICAL HISTORY: Notable for: Two C-sections. Bilateral tubal ligation. Endometrial ablation in 2007. PHYSICAL EXAMINATION GENERAL APPEARANCE: No acute distress. ABDOMEN: Soft, nontender. No guarding. No rebound. PELVIC: External genitalia within normal limits. Bartholin's and Lamboglia's are normal. Speculum inserted. Cervix identified, appeared to be normal. Bimanual exam reveals no cervical motion tenderness. There is tenderness to palpation of the uterus. IMPRESSION/REPORT/PLAN We did proceed with ultrasound evaluation and this reveals hypoechogenic areas inside the endometrial cavity with heterogeneity in the uterus. I did explain the findings to the patient. Those appear tome as isolated lakes of blood. 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 So, wetalked about that and discussed the management of that. The patient was instructed about conservative options with hormonal suppression of her ovarian cycle. We talked about surgical intervention with hysteroscopy, dilation and curettage, laparoscopy with bilateral salpingectomy and hysterectomy as the best treatment for her for her condition. The patient appeared to be leaning more towards a hysterectomy. So the risks of hysterectomy were discussed with her at length. Specifically about the potential outcome of the procedure. Patient instructed to expect 3 possible outcomes, most likely her pains would improve; however, she needs to expect that her pain will worsen or her pain will stay the same.Patient was instructed that multiple etiologies can cause pelvic pain. We also discussed the need toevaluate and exclude endometrial cancer/hyperplasia. We talked about the importance of that. She is low risk for endometrial cancer. The patient was instructed that if she decides to proceed with conservative management, then we will need to try to obtain a sample to exclude cancer or precancer. Patient understands all that. She was given some educational material about hysterectomy. She was also given a prescription for [place] to assist her with pain control. She is to communicate with us after she makes her final determinations. Total time spent with the patient 25 minutes. More than 50% of the time was spent in counseling. Dio Dickson M.D./suly Electronically Signed By: DIO DICKSON MD On: 06/05/2014 09:08 PM Source: [facility] MHSDOLBEYNONRADSYS Document Id: [id number] NESS APPLICATIONS SPECIALIST documented in this encounter Miscellaneous Notes Miscellaneous - Carol Ann Gates R.N. - 05/28/2014 8:41 AM CST Addendum by DIO DICKSON MD on 28 May 2014 12:59:54 BUSINESS APPLICATIONS SPECIALIST From: DIO DICKSON MD To: [facility] Line; Sent: 05/28/2014 12:59:54 BUSINESS APPLICATIONS SPECIALIST Subject: RE: THANKS Addendum by ANNE YORK RN on 28 May 2014 12:12:18 BUSINESS APPLICATIONS SPECIALIST From: ANNE YORK RN ([facility] Nurse Line) To: DIO DICKSON MD; Sent: 05/28/2014 12:12:18 BUSINESS APPLICATIONS SPECIALIST Subject: RE: Addendum by ANNE YORK RN on 28 May 2014 12:12:14 BUSINESS APPLICATIONS SPECIALIST Pt. called back and she was assisted in scheduling an appt. this week. Addendum by CAROL ANN GATES RN on 28 May 2014 09:22:26 BUSINESS APPLICATIONS SPECIALIST left message for patient to call nurseline of Dr. Dickson for further info Addendum by DIO DICKSON MD on 28 May 2014 09:16:49 BUSINESS APPLICATIONS SPECIALIST From: DIO DICKSON MD To: [facility] Nurse Line; Sent: 05/28/2014 09:16:49 BUSINESS APPLICATIONS SPECIALIST Subject: RE: let her schedule f/u this week and we can discuss this and schedule surgery From: CAROL ANN GATES RN ([facility] Nurse [facility]) To: DIO DICKSON MD; Sent: 05/28/2014 08:41:10 BUSINESS APPLICATIONS SPECIALIST Patient called stating she was seen 05/25/14 and was to call with decision regarding Hysterectomy andhas decided sshe would like to go forward with this. She may be reached at [phone] for further discussion and scheduling. Source: [facility] POWERCHART Document Id: [id number] Miscellaneous - Dio Dickson M.D. - 05/25/2014 8:32 PM CST Ambulatory Patient Summary [address] [id number] Visit Information Name: DENICE OWENS [facility] Number: [id number] Current Date: 05/25/2014 20:32:25 Physicians Attending Provider: DIO DICKSON MD Primary [...] 1 oliver, Topical, two times a day *dextroamphetamine-amphetamine (Adderall XR 10 mg oral capsule, extended release) 1 cap, Oral, once a day (in the morning) HYDROcodone-acetaminophen (HYDROcodone-acetaminophen 5 mg-325 mg oral tablet) 1 Tablet(s), Oral, twotimes a day as needed for Pain No more than 4,000mg acetaminophen/24hrs This is a CHANGE HYDROcodone-acetaminophen (Grand Canyon 5 mg-325 mg oral tablet) 1 to [...] day as needed for muscle spasm, pain * You have let us know that you are not taking this medication as listed. Please talk with your primary care provider or the health care provider who prescribed the medication as soon as possible. Stop Taking the Following Medications: Medication list as of 05-25-14 20:32 Attention: If you have any medications at [...] Foster MD, Dominga Gamez 06/22/2014 12:45 ALCL PMR Dominga Foster MD 06/29/2014 12:45 ALCL PMDominga Flores MD 07/06/2014 12:45 ALCL PMDominga Flores MD 07/13/2014 12:45 ALCL PMDominga Flores MD 07/20/2014 12:45 ALCL PMR Kristin MARTINEZ, Dominga Gamez Attention: Contact your local Clinic if further appointment detail needed. Your Goals/Additional instructions: Source: [facility] POWERCHART Document Id: [id number] NESS APPLICATIONS SPECIALIST Miscellaneous - Dio Dickson M.D. - 05/25/2014 8:32 PM CST Ambulatory Discharge Medication List [address] [id number] Visit Information Name: DENICE OWENS [facility] Number: [id number] Visit Date: 05/25/2014 20:32:23 Attending Provider: DIO DICKSON MD Primary Care [...] 1 oliver, Topical, two times a day *dextroamphetamine-amphetamine (Adderall XR 10 mg oral capsule, extended release) 1 cap, Oral, once a day (in the morning) HYDROcodone-acetaminophen (HYDROcodone-acetaminophen 5 mg-325 mg oral tablet) 1 Tablet(s), Oral, twotimes a day as needed for Pain No more than 4,000mg acetaminophen/24hrs This is a CHANGE HYDROcodone-acetaminophen ([place] 5 mg-325 mg oral tablet) 1 to [...] day as needed for muscle spasm, pain * You have let us know that you are not taking this medication as listed. Please talk with your primary care provider or the health care provider who prescribed the medication as soon as possible. Stop Taking the Following Medications: Medication list as of 05-25-14 20:32 Attention: If you have any medications at [...] Signed By: Signed On: Additional Information: Source: [facility] [employer] Document Id: [id number] NESS APPLICATIONS SPECIALIST Miscellaneous - Kaylyn Gould, C.M.[place]inth[place] - 05/25/2014 4:39 PM CST Retail Merchandising Specialist Documentation Retail Merchandising Specialist Documentation Entered On: 05/25/2014 16:39 BUSINESS APPLICATIONS SPECIALIST Performed On: 05/25/2014 16:39 BUSINESS APPLICATIONS SPECIALIST by KAYLYN GOULD [facility] Retail Merchandising Specialist Documentation CD Procedure Performed : pelvic exam CD Retail Merchandising Specialist Present : Yes KAYLYN GOULD CMA - 05/25/2014 16:39 BUSINESS APPLICATIONS SPECIALIST Source: [facility] [employer] Document Id: [id number] BUSINESS APPLICATIONS SPECIALIST!4 NESS APPLICATIONS SPECIALIST documented in this encounter Plan of Treatment Not on filedocumented as of this encounter Procedures Procedure Name Priority Date/Time Associated Comments Diagnosis TEST, U Routine 05/25/2014 4:51 PM Resu lts for this BUSINESS APPLICATIONS SPECIALIST procedure are i n the results section. US PELVIS Routine 05/25/2014 3:47 PM Results f or this TRANSABDOMINAL BUSINESS APPLICATIONS SPECIALIST procedure are in the results section. documented in this encounter Results Test, Qualitative, Urine (05/25/2014 4:51 PM BUSINESS APPLICATIONS SPECIALIST) Patholo gist Method Time Signature HXBeta-hCG Negative POWERCHART Qualitative Urine Specimen (Source) Anatomical Collection Method Collection Time Re ceived Time Location / / Volume Laterality Urine 05/25/2014 4:51 PM BUSINESS APPLICATIONS SPECIALIST Dio Dickson M.D. LAB URINE ORDERABLES Performing Organization Address City/State/ZIP Code Phon e Number POWERCHART US Pelvis Transabdominal (05/25/2014 3:47 PM BUSINESS APPLICATIONS SPECIALIST) Anatomical Region Laterality Modality Pelvis N/A Ultrasound Specimen (Source) Anatomical Collection Method Collection Time Re ceived Time Location / / Volume Laterality 05/25/2014 3:47 PM BUSINESS APPLICATIONS SPECIALIST Narrative 05/31/2014 10:30 AM BUSINESS APPLICATIONS SPECIALIST Procedure: Transvaginal ultrasound Indication: Pelvic pain. History of endo metrial ablation. History of bilateral tubal ligation. Findings: The uterus is heterogenous and measures 8.23 cm in longitudinal section. There are hypoecho genic fluid collections in the endometrial cavity and myometrium. T he largest of the fluid collection measures 1.05 cm. The finding s are ??suggestive of trapped blood. Findings are also suggestive of a denomyosis. Both ovaries were visualized and are within normal limits. 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 Procedure Note Dio Dickson M.D. / ProviderChun M.D. - 09/02/2016 Procedure: Transvaginal ultrasound Indication: Pelvic pain. History of endo metrial ablation. History of bilateral tubal ligation. Findings: The uterus is heterogenous and measures 8.23 cm in longitudinal section. There are hypoecho genic fluid collections in the endometrial cavity and myometrium. T he largest of the fluid collection measures 1.05 cm. The finding s are suggestive of trapped blood. Findings are also suggestive of a denomyosis. Both ovaries were visualized and are within normal limits. 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 Kathy Winter R.V.T., Gypsy[place]inthia[place]inth[place] IMG US PROCEDURES documented in this encounter Visit Diagnoses Not on filedocumented in this encounter Additional Health Concerns Assessment Noted Time PHQ-9 Depression Total Score: 2 05/04/2014 8:13 AM BUSINESS APPLICATIONS SPECIALIST documented as of this encounter
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
--- OUTSIDE RECORDS SUMMARY | 2021-12-10 15:38 | XMS_ITS | Encounter Summary ---
:1980 Author Organization [facility] Address [address] [place] [address] Care Team Providers Name Role Phone Unavailable Primary Care Provider Unavailable Encounter Details Date Type Department Care Team Description 07/06/2014 Hospital Encounter HX [facility] Lesley Rodriguez i, M.D. 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 documented as of this encounter Progress Notes Dio Dickson M.D. - 07/06/2014 9:51 AM CDT [id number] CHIEF COMPLAINT/REASON FOR VISIT Presenting for preoperative finalization. HISTORY OF PRESENT ILLNESS Ms. Galdamez is a 34-year-old lady who presents for the above reason. Has no complaints today. She reports that she continues to have some pelvic pain. She is using the pain medicines, which we have her given her before with adequate control. SYSTEMS REVIEW Otherwise negative. PAST MEDICAL/SURGICAL HISTORY PAST MEDICAL HISTORY: Reviewed and notable for ADHD. Patient has not been on Adderall and is doing well. Patient has a remote history of heart palpitations, this was evaluated through Cardiology and was negative and has not experienced any problems over the last 3 years, and she is very active and exercise on a regular basis. She is in the [employer]. Her functional status is close to 10 metabolic equivalents. PAST SURGICAL HISTORY: Notable for 2 C-sections, bilateral tubal ligation, and endometrial ablation. MEDICATIONS Currently on [place] and ibuprofen. SOCIAL HISTORY Denies any alcohol, drugs, or tobacco. DISCUSSION We reviewed the operative report. We talked about the indication of the surgery, including, 1. Pelvic pain. 2. History suggestive of post tubal ligation syndrome. 3. Stage I uterine prolapse. We discussed the procedure, which is, 1. Total laparoscopic hysterectomy. 2. Bilateral salpingectomy. 3. Uterosacral ligament suspension. 4. Cystoscopy. Patient understands the risks, benefits of the procedure, understands that the risks include seriousinjuries and , understands that the outcome is not guaranteed and there are 3 possible outcomes. Resolution of the pain, persistent pain, or worsening of the pain. Understands her alternatives including conservative management with conservative surgery or hormonal treatment. She understands the risks and alternatives to blood transfusion. She understands the teams involved in her care. She understands that the procedure is not going to be filmed. Patient understands all of the specimens collected will be sent to pathology for evaluation. She does allow us to perform appropriate workup if we get exposed to her blood or body fluids. Patient agrees with a procedure plan. The sterilization form was also reviewed and the patient understands that she would not be able to get after this procedure. All her questions in this regard were answered. PHYSICAL EXAMINATION GENERAL APPEARANCE: No acute distress. Well dressed, well groomed, well developed. PSYCHIATRIC/NEUROLOGIC: Patient is conscious, oriented, cooperative, has appropriate affect. VITAL SIGNS: Blood pressure 102/74, respirations 16, pulse in the 70s to 80s. NECK: Normal. Thyroid is normal. LUNGS: Clear. Good bilateral air entry. HEART: Normal S1, S2. No murmurs. ABDOMEN: Soft, nontender. No guarding. No rebound. No evidence of any organomegaly. No evidence of any hernias. Incisions of previous as noted in the lower abdomen. SKIN: Normal without evidence of rash. IMPRESSION/REPORT/PLAN Patient asked to stay nothing by mouth after midnight the night before the surgery. Follow up for surgical procedure on July 12. Total time spent with the patient 15 minutes, more than 50% of the time was spent in counseling. Dio Dickson M.D./suly Electronically Signed By: DIO DICKSON MD On: 07/26/2014 02:23 PM Source: [facility] MHSDOLBEYNONRADSYS Document Id: [id number] documented in this encounter Nursing Notes Kaylyn Gould C.MUlisses - 07/06/2014 10:50 AM CDT Surgery instructions Patient given surgery instructions for hysterectomy scheduled for 07/12/2014 Electronically Signed By: KAYLYN GOULD CMA On: 07/06/2014 10:51 AM Source: [facility] POWERCHART Document Id: [id number] documented in this encounter Miscellaneous Notes Miscellaneous - Dio Dickson M.D. - 07/06/2014 1:06 PM CDT Ambulatory Patient Summary [address] [id number] Visit Information Name: DENICE OWENS [facility] Number: [id number] Current Date: 07/06/2014 13:06:13 Physicians Attending Provider: DIO DICKSON MD Primary [...] 1 oliver, Topical, two times a day multivitamin with minerals (multivitamin with minerals Multiple Vitamins with Zinc oral capsule) 1 cap, Oral, once a day with magnesium Stop Taking the Following Medications: dextroamphetamine-amphetamine (Adderall XR 10 mg oral capsule, extended release) Medication list as of 07-06-14 13:06 Attention: If you have any medications at home that are not on this list, DO NOT take them until youcontact your provider for clarification. Give a copy of your medication list to your primary care provider. Update your medication list any time medications or doses are changed and carry your medication list at all times in case of emergency. Electronically Signed By: DIO DICKSON MD Signed On:06-JUL-2014 13:06:08 Your Allergies & Intolerances Substance Reaction Symptoms [...] Provider 07/20/2014 12:45 ALCL Dominga Estrada MD 08/03/2014 13:45 ALCL Dominga Estrada MD 08/10/2014 13:45 ALCL Dominga Estrada MD 08/21/2014 12:45 ALCL PMDominga Flores MD Attention: Contact your local Clinic if further appointment detail needed. Your Goals/Additional instructions: Source: [facility] POWERCHART Document Id: [id number] Andree - Dio Dickson M.D. - 07/06/2014 1:06 PM CDT Ambulatory Discharge Medication List [address] [place] [id number] Visit Information Name: DENICE OWENS [facility] Number: [id number] Visit Date: 07/06/2014 13:06:12 Attending Provider: DIO DICKSON MD Primary Care [...] 1 oliver, Topical, two times a day multivitamin with minerals (multivitamin with minerals Multiple Vitamins with Zinc oral capsule) 1 cap, Oral, once a day with magnesium Stop Taking the Following Medications: dextroamphetamine-amphetamine (Adderall XR 10 mg oral capsule, extended release) Medication list as of 07-06-14 13:06 Attention: If you have any medications at home that are not on this list, DO NOT take them until youcontact your provider for clarification. Give a copy of your medication list to your primary care provider. Update your medication list any time medications or doses are changed and carry your medication list at all times in case of emergency. Electronically Signed By: DIO DICKSON MD Signed On:06-JUL-2014 13:06:08 Additional Information: Source: [facility] POWERCHART Document Id: [id number] Andree - Kaylyn Gould C.M.A. - 07/06/2014 10:45 AM CDT Obstructive Sleep Apnea Obstructive Sleep Apnea Entered On: 07/06/2014 10:46 CDT Performed On: 07/06/2014 10:45 CDT by KAYLYN GOULD [facility] ROSALIA Screening Known Obstructive Sleep Apnea : No - NOT diagnosed with ROSALIA KAYLYN GOULD [facility] - 07/06/2014 10:45 CDT ROSALIA Assessment Do you have high blood pressure or have you been told to take medication for high blood pressure? : No Frequency of Snoring : Never Frequency of Gasping, Choking, Snorting : Never Total Number of Historical Features : 0 Neck Circumference (cm) : 32/33 Total Sleep Apnea Clinical Score Calc : 0 KAYLYN GOULD CMA - 07/06/2014 10:45 CDT Source: [employer] Document Id: [id number] CDT!10 Miscellaneous - Maria Guadalupe Panda, LCinthiaPCinthiaNCinthia - 07/06/2014 10:19 AM CDT Adult Emergency Room Nurse Intake/History Adult Emergency Room Nurse Intake/History Entered On: 07/06/2014 10:20 CDT Performed On: 07/06/2014 10:19 CDT by MARIA GUADALUPE PANDA LPN Intake Chief Complaint : PRE-OP Systolic Blood Pressure : 102 mmHg Diastolic Blood Pressure : 74 mmHg NIBP Mean : 83 mmHg BP Location : Left upper extremity Blood Pressure Cuff Size : Regular Height : 166 cm(Converted to: 5 ft 5 inch(es), 65 inch(es)) Actual Weight : 58.2 kg(Converted to: 128 lb 5 oz) Weight Source : Standing scale Dosing Weight Clinic : 58.2 kg Clinic BSA : 1.64 Body Mass Index : 21.12 kg/m2 MARIA GUADALUPE PANDA LPN - 07/06/2014 10:19 CDT General Info Information Given By : Patient Preferred Communication Mode : Verbal Languages : Romanian Is Patient Female and 13-50 no hysterectomy : Yes Status : Patient denies Are you ? : No MARIA GUADALUPE PANDA LPN - 07/06/2014 10:19 CDT Subjective Pain Symptoms : No PANDAGARYWendie [facility] 07/06/2014 10:19 CDT Dependent Habits Tobacco Use/Currently Using : No Exposure to Tobacco Smoke : Care provider denies smoking in home Smoking Status : Never smoker PANDAGARYWendie [facility] 07/06/2014 10:19 CDT Tobacco Use Grid Last Use : never MARIA GUADALUPE PANDA [facility] 07/06/2014 10:19 CDT Alcohol Use : Yes (Comment: Rarely [MARIA GUADALUPE PANDA [facility] - 07/06/2014 10:19 CDT] ) MARIA GUADALUPE PANDA [facility] 07/06/2014 10:19 CDT Caffeine Use Grid Caffeine Use : Current Type : Soft drinks Frequency : Weekly Amount : 3 cans per week MARIA GUADALUPE PANDA [facility] 07/06/2014 10:19 CDT Recreational Drug Use Grid Drug Use : None MARIA GUADALUPE PANDA [facility] 07/06/2014 10:19 CDT ID Screen Drug Resistant Organism : No Travel Within Last 21 Days : No Contact with someone with Ebola : No MRAIA GUADALUPE PANDA [facility] 07/06/2014 10:19 CDT Source: [employer] Document Id: [id number] CDT!44 documented in this encounter Plan of Treatment Not on filedocumented as of this encounter Visit Diagnoses Not on filedocumented in this encounter Additional Health Concerns Assessment Noted Time PHQ-9 Depression Total Score: 2 05/04/2014 8:13 AM 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
--- OUTSIDE RECORDS SUMMARY | 2021-12-10 15:39 | XMS_ITS | Encounter Summary ---
:1980 Author Organization [facility] Address [address] [place] [address] Care Team Providers Name Role Phone Unavailable Primary Care Provider Unavailable Encounter Details Date Type Department Care Team Description 03/16/2014 Hospital Encounter HX [facility] ALCL FAMILYPRA Carlos Nolan M.D. 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
--- OUTSIDE RECORDS SUMMARY | 2021-12-10 15:39 | XMS_ITS | Encounter Summary ---
:1980 Author Organization [facility] Address [address] [place] [address] Care Team Providers Name Role Phone Unavailable Primary Care Provider Unavailable Encounter Details Date Type Department Care Team Description 02/16/2013 Hospital Encounter HX [facility] Carlos Vang M.D. 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 documented as of this encounter Procedure Notes Conversion, Historical Provider Ser - 02/16/2013 2:53 PM CDT PPD Reading PPD Reading Entered On: 02/16/2013 14:54 CDT Performed On: 02/16/2013 14:53 CDT by MEI HAWKINS RN PPD Reading MM of Induration : 0 mm PPD Interpretation : Negative PPD Placed On : Right inner forearm PPD Date/Time Administered : 02/14/2013 14:36 CDT PPD Reading Comment : This completes #1 mantoux for school requirement. MEI HAWKINS RN - 02/16/2013 14:53 CDT Source: [facility] POWERCHART Document Id: [id number] CDT!7 documented in this encounter Miscellaneous Notes Miscellaneous - Yolis Lopez R.N. 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 Addendum by YOLIS LOPEZ RN on 07 February 2014 13:29:03 CDT From: YOLIS LOPEZ RN ([facility] Nurse Line) To: PEGGY Vang Nurse; Sent: 02/07/2014 13:29:03 CDT Subject: RE: Med Management Addendum by YOLIS LOPEZ RN on 07 February 2014 13:28:41 CDT Please contact patient when hard signed copy is ready. Addendum by CARLOS VANG MD on 07 February 2014 12:54:03 CDT From: CARLOS VANG MD Sent: 02/07/2014 12:54:03 CDT Subject: RE:Med Management Approved Order:dextroamphetamine-amphetamine (Adderall XR 10 mg oral capsule, extended release) 1 cap(s) PO Daily AM Qty: 30 cap(s) Refills: 0 Substitutions Allowed Print - [id number] Signed by CARLOS VANG MD 02/07/2014 12:53:54 From: YOLIS LOPEZ RN ([facility] Nurse Line) To: CARLOS VANG MD; Sent: 02/07/2014 10:57:13 CDT Subject: Med Management On hold pending signature Order:dextroamphetamine-amphetamine (Adderall XR 10 mg oral capsule, extended release) 1 cap(s) PO Daily AM Qty: 30 cap(s) Refills: 0 Substitutions Allowed Print - [id number] Patient was seen in September for ADHD. According to Denice the plan was use Adderall only in situations that she neeed increased concentratrion. She is currently taking a difficult class and would like this medication refilled. Source: [facility] POWERCHART Document Id: [id number] documented in this encounter Plan of Treatment Not on filedocumented as of this encounter Procedures Procedure Name Priority Date/Time Associated Diagnosis Comme nts HX TB SKIN TEST-LAB Routine 02/16/2013 2:53 PM Re sults for this CDT procedure are i n the results section. documented in this encounter Results HX TB SKIN TEST-LAB (02/16/2013 2:53 PM CDT) P athologist Signature TB Skin Test 0 MM POWERCHART TB Skin Test Negative POWERCHART Specimen (Source) Anatomical Collection Method Collection Time Re ceived Time Location / / Volume Laterality 02/16/2013 2:53 PM CDT Parag Flowers M.D. LAB HISTORICAL ORDERS Performing Organization Address City/State/ZIP Code Phon e Number POWERCHART documented in this encounter Visit Diagnoses Not on filedocumented in this encounter
--- OUTSIDE RECORDS SUMMARY | 2021-12-10 15:39 | XMS_ITS | Encounter Summary ---
:1980 Author Organization [facility] Address [address] [place] [address] Care Team Providers Name Role Phone Unavailable Primary Care Provider Unavailable Encounter Details Date Type Department Care Team Description 09/01/2012 Hospital Encounter [facility] Carlos Vang M.D. 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 - 09/01/2012 2:22 PM CDT [id number] CHIEF COMPLAINT/REASON FOR VISIT 1. Migraine headache. 2. ADHD. HISTORY OF PRESENT ILLNESS Denice comes in today to talk about her above-mentioned problem. She gives a history of having been diagnosed with migraine almost 11 years ago and says that it has been fairly well-controlled in thepast. She gives a history of having suffered through at least 2 headaches within the last year, the second 1 has been going on for at least a week and half now. She says that the headache is usually localized in the right parietal area and is associated with worsening symptoms if she hears noises. Mak complains of associated nausea with this, has been trying Excedrin migraine as well as naproxenwithout any significant problem and without any significant benefit. She also says that she has tried multiple medications in the past for migraine, but has not had any benefit. She currently denies any blurred vision, slurred speech, weakness of extremities or any bowel or bladder incontinence. The headaches are usually pretty mild but this time it has been there for quite some time. She also is here to talk about her ADHD medication. She has restarted taking her Adderall 5 mg tablet twice a day and says that though it controls her hyperactivity she feels significantly rundown by the end of the day. She currently wonders if the medication might be a little too strong for her and is here to see if other options are available. PAST MEDICAL/SURGICAL HISTORY Reviewed. CURRENT MEDICATIONS Reviewed. ALLERGIES Reviewed. SOCIAL HISTORY Reviewed. FAMILY HISTORY Reviewed. SYSTEMS REVIEW As above, all other systems reviewed and negative. PHYSICAL EXAMINATION VITAL SIGNS: Reviewed. GENERAL: In no apparent distress, comfortable and cooperative. HEENT: Normocephalic, atraumatic. EOMI. PERRL. No conjunctival injection. Nose patent bilaterally without erythema or drainage. Oropharynx: [place] mucous membranes without lesions, exudate or drainage. NECK: Supple without lymphadenopathy. No thyromegaly or thyroid masses. CARDIOVASCULAR: Regular rate and rhythm without murmur, gallop or rubs. LUNGS: Clear to auscultation bilaterally without wheezing or rales. ABDOMEN: Soft, nontender and nondistended. Normal active positive bowel sounds. No hepatosplenomegaly or masses appreciated. EXTREMITIES: No clubbing, cyanosis or edema. NEUROLOGICAL EXAM: Cranial nerves II-XII are normal. No sensory or motor deficit noted. Power 5/5 inall extremities. Gait not compromised. Deep tendon reflexes intact. IMPRESSION/REPORT/PLAN 1. Migraine headache. At this point I have suggested that we could give her an injection of Phenergan 25 mg intramuscular once has been provided today. I have also sent her home with some Fioricet to be taken 4 to 5 times a day as needed. Side effects of the medication discussed with the patient. 2. ADHD medication. We have agreed to switch her to Ritalin 10 mg twice a day. Side effects of the medication were discussed with the patient. I will have her update me on how the medication takes careof her. Vinod Orr/tong Electronically Signed By: CARLOS VANG MD On: 09/13/2012 07:51 AM Source: [facility] [id number] Document Id: [id number] documented in this encounter Miscellaneous Notes Miscellaneous - Yana Lopez [place] - 09/02/2012 11:18 AM CDT General Message Document Contains Addenda Addendum by CARLOS VANG MD on 02 Sep 2012 14:35:04 CDT Talked to the patient. I have recommended reducing the fioricet if needed. In addition, a script ofreglan has been sent to the pharmacy. She agrees. Carlos From: YANA LOPEZ RN To: CARLOS VANG MD; Sent: 09/02/2012 11:18:24 CDT ! Subject: General Message Patient was seen yesterday for headache and nausea. The injection for nausea helped but she feels she is more nauseated today and still has a headache and dizziness. Rates headache at 7-8/10. She tried the Fiorcet x 2 with no relief. [facility] Pharmacy is [facility]. She states you discussed other meds shecould try. Source: [facility] POWERCHART Document Id: [id number] Electronically signed by [facility] Director Furniture [id number] at 09/23/2016 6:26 AM CDT Miscellaneous - Carlos Vang M.D. - 09/01/2012 4:59 PM CDT Ambulatory Patient Summary [address] [place] [address] Visit Information Name: DENICE OWENS [facility] Number: [id number] Current Date: 09/01/2012 16:59:52 Physicians Attending Provider: CARLOS VANG MD Primary Care Provider: CARLOS VANG MD Your Medications Here is a list of your medications. It is important to take your medications as directed. Use a pillbox or chart to help remind you to take your medications. Please let your doctor or nurse know if you have problems taking your medications. Medication/Strength Dose Route Frequency Indications/Special Instructions/Comments butalbital/acetaminophen/caffeine (butalbital/acetaminophen/caffeine 50 mg-300 mg-40 mg oral capsule) 1 cap(s) Oral every 4 hours for 7 Days methylphenidate (Ritalin 10 mg oral tablet) 10 mg Oral two times a day AM & Afternoon ibuprofen (ibuprofen 200 mg oral tablet) 400 mg Oral as needed as needed for Pain APAP/ASA/caffeine (Excedrin Migraine Geltab oral tablet) 2 tab(s) Oral every 6 hours *lidocaine topical (lidocaine 2% mucous membrane solution) 1 oliver Topical four times a day as needed for mouth sore pain *triamcinolone topical (triamcinolone 0.1% mucous membrane paste) See Instructions Topical up to 4xDay to affected areas for 7 day(s) * You have let us know that you are not taking this medication as listed. Please talk with your primary care provider or the health care provider who prescribed the medication as soon as possible. Attention: If you have any medications at home that are not on this list, DO NOT take them until youcontact your provider for clarification. Your Allergies & Intolerances Substance Reaction Symptoms Category Comments No Known Allergies Drug Your Problem List Problem Status Onset Comments Anxiety disorder NOS Active 07/01/2011 Palpitation Active 07/01/2011 Sleep disturbance, unspecified Active 07/14/2011 [place]ushing Active 07/14/2011 Headache Active 07/14/2011 Tachycardia NOS Active 07/14/2011 ADHD. Active Depression Active 02/12/12 external records Posttraumatic Stress Disorder Active 02/12/12 external records Your Upcoming Appointments Date Time Location Reason Provider No Appointments found Your Goals/Additional instructions: Source: [facility] POWERCHART Document Id: [id number] Miscellaneous - Carlos Vang M.D. - 09/01/2012 4:59 PM CDT Ambulatory Depart Summary [address] [place] [address] Visit Information Name: ANDREW OWENSHUGH NEW [facility] Number: [id number] Visit Date: 09/01/2012 16:59:51 Attending Provider: CARLOS VANG MD Primary Care Provider: CARLOS VANG MD ANDREW OWENSFER SHAQ has been given the following list of medications: Your Medications It is important to take your medications as directed. Use a pill box or chart to help remind you to take your medications. Please let your doctor or nurse know if you have problems taking your medications. Medication/Strength Dose Route Frequency Indications/Special Instructions/Comments butalbital/acetaminophen/caffeine (butalbital/acetaminophen/caffeine 50 mg-300 mg-40 mg oral capsule) 1 cap(s) Oral every 4 hours for 7 Days methylphenidate (Ritalin 10 mg oral tablet) 10 mg Oral two times a day AM & Afternoon ibuprofen (ibuprofen 200 mg oral tablet) 400 mg Oral as needed as needed for Pain APAP/ASA/caffeine (Excedrin Migraine Geltab oral tablet) 2 tab(s) Oral every 6 hours *lidocaine topical (lidocaine 2% mucous membrane solution) 1 oliver Topical four times a day as needed for mouth sore pain *triamcinolone topical (triamcinolone 0.1% mucous membrane paste) See Instructions Topical up to 4xDay to affected areas for 7 day(s) * You have let us know that you are not taking this medication as listed. Please talk with your primary care provider or the health care provider who prescribed the medication as soon as possible. Attention: If you have any medications at home that are not on this list, DO NOT take them until youcontact your provider for clarification. Additional Information: Source: [facility] POWERCHART Document Id: [id number] Miscellaneous - Linda Dawkins C.MUlisses - 09/01/2012 2:41 PM CDT Adult Pediatric Physiatrist Intake/History Adult Pediatric Physiatrist Intake/History Entered On: 09/01/2012 14:44 CDT Performed On: 09/01/2012 14:41 CDT by LINDA DAWKINS Intake Chief Complaint : Headaches x 2 weeks / discuss Addrell Rx Temperature Core : 36.8 DegC(Converted to: 98.2 DegF) Peripheral Pulse Rate : 80 /min Systolic Blood Pressure : 112 mmHg Diastolic Blood Pressure : 72 mmHg NIBP Mean : 85 mmHg BP Location : Left upper extremity Blood Pressure Cuff Size : Large Actual Weight : 58.8 kg(Converted to: 129 lb 10 oz) Weight Source : Standing scale Dosing Weight Clinic : 58.8 kg LINDA DAWKINS - 09/01/2012 14:41 CDT General Info Languages : Grenadian LINDA DAWKINS - 09/01/2012 14:41 CDT Subjective Pain Symptoms : Yes LINDA DAWKINS 09/01/2012 14:41 CDT Pain Pain Assessment Grid Pain 1 Location : Head Laterality : Right (Comment: top [LINDA DAWKINS 09/01/2012 14:41 CDT] ) Intensity : 6 Time Pattern : Acute (Comment: 2 weeks [LINDA DAWKINS 09/01/2012 14:41 CDT] ) Quality : Throbbing Aggravating Factors : Movement (Comment: running [LINDA DAWKINS 09/01/2012 14:41 CDT] ) LINDA DAWKINS - 09/01/2012 14:41 CDT Dependent Habits Tobacco Use/Currently Using : No Smoking Status : Never smoker LINDA DAWKINS 09/01/2012 14:41 CDT Tobacco Use Grid Last Use : never LINDA DAWKINS - 09/01/2012 14:41 CDT Alcohol Use : No LINDA DAWKINS 09/01/2012 14:41 CDT Caffeine Use Grid Caffeine Use : Current Type : Soft drinks Frequency : Weekly Amount : 3 cans per week LINDA DAWKINS - 09/01/2012 14:41 CDT Recreational Drug Use Grid Drug Use : None LINDA DAWKINS - 09/01/2012 14:41 CDT Source: [facility] [employer] Document Id: [id number] CDT!42 Andree - Linda Dawkins C.M.A. - 09/01/2012 2:41 PM CDT PHQ-9 PHQ-9 Entered On: 09/01/2012 14:45 CDT Performed On: 09/01/2012 14:41 CDT by LINDA DAWKINS PHQ-9 Little interest or pleasure in doing [...] at all PHQ-9 Calculated Score : 0 LINDA DAWKINS - 09/01/2012 14:41 CDT Source: [facility] [employer] Document Id: [id number] CDT!12 Linda Castillo, C.M.A. - 09/01/2012 2:41 PM CDT Quality Measures Quality Measures Entered On: 09/01/2012 14:45 CDT Performed On: 09/01/2012 14:41 CDT by LINDA DAWKINS Depression PHQ-9 Score : 0 LINDA DAWKINS - 09/01/2012 14:41 CDT Source: [facility] AloompaCHART Document Id: [id number] CDT!3 documented in this encounter Plan of Treatment Not on filedocumented as of this encounter Visit Diagnoses Not on filedocumented in this encounter
--- OUTSIDE RECORDS SUMMARY | 2021-12-10 15:39 | XMS_ITS | Encounter Summary ---
:1980 Author Organization [facility] Address [address] [place] [address] Care Team Providers Name Role Phone Unavailable Primary Care Provider Unavailable Encounter Details Date Type Department Care Team Description 10/21/2011 Hospital Encounter HX [facility] AL[facility] CARDIOLOG Mati James M.D., Ph.D. 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 - 10/21/2011 12:00 AM CDT [id number] CHIEF COMPLAINT/REASON FOR VISIT Prescheduled followup HISTORY OF PRESENT ILLNESS Ms. Owens is a very pleasant 31-year-old woman from the [facility] whom I last saw on August 12, 2011. Please see my note from that date for an account of Ms. Owens's history of worsening palpitations and intermittent episodes of unheralded flushing, nausea and increased blood pressure increases up to 180 systolically and up to 120 diastolically, that was new in the 6 weeks preceding her visit with me. She also described her toes turning purple in the shower and at night. At the time of Ms. Owens's initial visit with us, our plan was to have her seen in autonomic neurology after completing a 24-hour urinary sodium, orthostatic serum catecholamines, autonomic reflex screen, thermoregulatory sweat testing and cardiovascular tilt table testing and 24-hour concomitant ECG and blood pressure monitoring. Today, I spent 25 minutes fygv-hx-self with Ms. Owens, all of which was spent on counseling and coordination of care. Ms. Owens reports running or biking 3-4 times a week for 1 hour at a time, and that her symptoms of palpitations, flushing and headaches have dramatically decreased. She has not started any new medications and is uncertain why her symptoms are so much improved. Ms. Owens's fractionated catecholamines supine were normal and what appears to be appropriately increased to 923 during standing. Urinary sodium and sodium concentration were normal, and so was tryptase. The thermoregulatory sweat test was normal and the autonomic reflex screen was abnormal for early and late orthostatic tachycardia with symptoms consistent with postural orthostatic tachycardia syndrome (POTS). The full tilt table test from October 06, 2011, showed normal response to carotid sinus massage and no vasodepressor syncope with prolonged tilt. Peak blood pressure observed was 170/90. At that time, she had her typical symptoms of feeling flushed and nasal congestion. The 24-hour blood pressure and ECG recording was technically satisfactory and showed one episode of flushing and tachycardia during which time blood pressure and heart rate were increased. She had intermittent diastolic hypertension. Her average blood pressure was 130/91, her average heart rate 97. Ms. Owens was seen by Dr. Maryam Gamez on July 07, 2011. Dr. Gamez felt that she had probable mild autonomic storms and migraines. Her symptoms could represent a form of brainstem dysregulation and her migraines are likely secondary to hypertension, and it is not felt that the hypertension is the result of migraines. Dr. Gamez suggested adding a small dose of diltiazem to her clonidine as soon as she has spells, in hopes that the diltiazem will also take care of the migraines. IMPRESSION/REPORT/PLAN 1. Palpitations, improving. 2. Intermittent tachycardia, improving. 3. Flushing, improving. 4. Blood pressure fluctuations, improving. 5. Probable mild autonomic storms, NOS. 6. Lifelong history of exercise intolerance. 7. Family history of supraventricular tachycardia and sudden cardiac . 8. Normal left ventricular function. 9. Absence of ischemia. Ms. Owens reports feeling much better and expresses concerns that putting her on medication may disqualify her from her work. Given the results of her evaluation, including the presence of no more than borderline systolic and diastolic blood pressures, I believe it is fair to observe. Ms. Owens will use clonidine 0.1 mg by mouth as needed for symptoms of hypertension. She will call us if her symptoms get worse to the extent where she would like to try pharmacologic therapy with diltiazem. Otherwise, we will plan on seeing her back for a recheck in 6 months with an electrocardiogram. Shiela James M.D., Ph.D./kadi Electronically Signed By: SHIELA JAMES MD PHD On: 10/21/2011 12:34 PM Source: [facility] MHSDOLBEYNONRADSYS Document Id: [id number] documented in this encounter Nursing Notes Mary Pelaez L.P.N. - 10/21/2011 9:15 AM CDT Plan of Care Jacob Plan of Care from appointment with Dr James on 10-20. No medication changes. Carry Clonidine for prn use. Special Instructions: Keep well hydrated. Consider compression stockings. Check BP regularly. Return to work slip signed. Follow up in 6 months with EKG. Information gone over with patient and she verbalized good understanding and agrees with plan. She will call if anything changes. Electronically Signed By: MARY PELAEZ On: 10/21/2011 09:19 AM Source: [facility] POWERGoSave Document Id: [id number] documented in this encounter Miscellaneous Notes Miscellaneous - Shiela James M.D., Ph.D. - 10/21/2011 9:01 AM CDT Ambulatory Patient Summary [address] [place] [address] Visit Information Name: DENICE OWENS Current Date: 10/21/2011 09:01:38 Physicians Attending Provider: SHIELA JAMES MD PHD Primary Care Provider: YOBANY VANG MD Your Medications Here is a list of your medications. It is important to take your medications as directed. Use a pillbox or chart to help remind you to take your medications. Please let your doctor or nurse know if you have problems taking your medications. Medication/Strength Dose Route Frequency Indications/Special Instructions/Comments clonidine (clonidine 0.1 mg oral tablet) See Instructions as needed for symptomatic hypertension hydrOXYzine (Vistaril 50 mg oral capsule) 50 mg Oral four times a day metoclopramide (Reglan 10 mg oral tablet) 20 mg Oral once 2 tablets one time for each headache dextroamphetamine-amphetamine (Adderall) 10 mg Oral once a day (in the morning) Attention: If you have any medications at [...] Headache Active 07/14/2011 Tachycardia NOS Active 07/14/2011 Your Upcoming Appointments Date Time Location Reason Provider No Appointments found Your Goals/Additional instructions: Source: [facility] POWERCHART Document Id: [id number] Miscellaneous - Shiela James M.D., Ph.D. - 10/21/2011 9:01 AM CDT Ambulatory Depart Summary [address] [place] [address] Visit Information Name: DENICE OWENS Visit Date: 10/21/2011 09:01:37 Attending Provider: SHIELA JAMES MD PHD Primary Care Provider: YOBANY VANG MD DENICE OWENS has been given the following list of medications: Your Medications It is important to take your medications as directed. Use a pill box or chart to help remind you to take your medications. Please let your doctor or nurse know if you have problems taking your medications. Medication/Strength Dose Route Frequency Indications/Special Instructions/Comments clonidine (clonidine 0.1 mg oral tablet) See Instructions as needed for symptomatic hypertension hydrOXYzine (Vistaril 50 mg oral capsule) 50 mg Oral four times a day metoclopramide (Reglan 10 mg oral tablet) 20 mg Oral once 2 tablets one time for each headache dextroamphetamine-amphetamine (Adderall) 10 mg Oral once a day (in the morning) Attention: If you have any medications at home that are not on this list, DO NOT take them until youcontact your provider for clarification. Additional Information: Yes - . Source: [facility] POWERCHART Document Id: [id number] Miscellaneous - Mary Brody, L.P.N. 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 Intake/History Entered On: 10/21/2011 8:33 CDT Performed On: 10/21/2011 8:29 CDT by MARY BRODY Intake Chief Complaint : recheck after Peace testing Apical Heart Rate : 100/min Heart Rhythm : Regular Systolic Blood Pressure : 118mmHg Diastolic Blood Pressure : 72mmHg NIBP Mean : 87mmHg BP Location : Right upper extremity Blood Pressure Cuff Size : Regular Height : 165cm(Converted to: 5ft 5inch(es), 64.96inch(es)) Actual Weight : 56.4kg(Converted to: 124lb 5oz) Weight Source : Standing scale Dosing Weight Clinic : 56.40kg Clinic BSA : 1.61 Body Mass Index : 20.72kg/m2 MARY BRODY - 10/21/2011 8:29 CDT Subjective Pain Symptoms : No MARY BRODY - 10/21/2011 8:29 CDT Dependent Habits Tobacco Use/Currently Using : No Smoking Status : Never smoker MARY BRODY - 10/21/2011 8:29 CDT Tobacco Use Grid Last Use : never MARY BROYD - 10/21/2011 8:29 CDT Caffeine Use Grid Caffeine Use : Current Type : Soft drinks Frequency : Daily MARY BRODY - 10/21/2011 8:29 CDT Recreational Drug Use Grid Drug Use : None MARY BRODY - 10/21/2011 8:29 CDT Allergy Allergies (Active) NKA Estimated Onset Date: Unspecified ; Created By: BRITTANY WALTON; Reaction Status: Active ; Category: Drug ; Substance: NKA ; Type: Allergy ; Updated By: BRITTANY WALTON; Reviewed Date: 10/21/2011 8:28 CDT Activity/Exercise Exercise Type : Bicycling, Jogging/Running Exercise Frequency : 2-3 times per week Duration : 60-90 minutes MARY BRODY - 10/21/2011 8:29 CDT [facility] POWER[facility] Document Id: [id number] Miscellaneous - Mary Brody L.P.N. - 10/21/2011 8:29 AM CDT Ambulatory Vitals Height Weight Ambulatory Vitals Height Weight Entered On: 10/21/2011 8:34 CDT Performed On: 10/21/2011 8:29 CDT by MARY BRODY Vitals/Ht/Wt Systolic Blood Pressure : 114mmHg Diastolic Blood Pressure : 68mmHg NIBP Mean : 83mmHg BP Location : Left upper extremity Blood Pressure Cuff Size : Regular MARY BRODY - 10/21/2011 8:29 CDT Source: [facility] Intellicheck Mobilisa Document Id: [id number] documented in this encounter Plan of Treatment Not on filedocumented as of this encounter Visit Diagnoses Not on filedocumented in this encounter
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
--- OUTSIDE RECORDS SUMMARY | 2021-12-10 15:39 | XMS_ITS | Encounter Summary ---
:1980 Author Organization [facility] Address [address] [place] [address] Care Team Providers Name Role Phone Unavailable Primary Care Provider Unavailable Encounter Details Date Type Department Care Team Description 04/13/2012 Hospital Encounter HX [facility] Carlos Vang M.D. 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 - 04/13/2012 2:38 PM CST [id number] CHIEF COMPLAINT/REASON FOR VISIT Chest heaviness. HISTORY OF PRESENT ILLNESS Denice comes in today to talk about her above-mentioned problem. Patient said that over the last couple of months she has been noticing significant problem with her sinus. She does have a history of chronic sinusitis in the past but now says that her ear feels full. She also complains of this chest heaviness and says that every time she does some kind of labored working she has to take a deep breath. She always has this kind of constriction around the chest. Also has slight cough which is usually nonproductive. She denies any fever, denies any chest pain, shortness of breath, nausea, vomiting, ordiarrhea. Denies any wheezing. Does complain of these symptoms coming intermittently and notices this with slight tightness as well. Patient denies any history of gastroesophageal reflux disease or asthma from the past. Does not smoke. Recently had an entire cardiac workup done which was reported to be negative. PAST MEDICAL/SURGICAL HISTORY Reviewed. CURRENT MEDICATIONS Reviewed. ALLERGIES Reviewed. SOCIAL HISTORY Reviewed. FAMILY HISTORY Reviewed. SYSTEMS REVIEW As above. All other systems reviewed and negative. PHYSICAL EXAMINATION VITAL SIGNS: Reviewed. GENERAL: In no apparent distress, comfortable and cooperative. HEENT: Normocephalic, atraumatic. EOMI. PERRL. No conjunctival injection. Nose patent bilaterally without erythema or drainage. Oropharynx: [place] mucous membranes without lesions, exudate or drainage. NECK: Supple without lymphadenopathy. No thyromegaly or thyroid masses. CARDIOVASCULAR: Regular rate and rhythm without murmur, gallop or rubs. LUNGS: Clear to auscultation bilaterally without wheezing or rales. ABDOMEN: Soft, nontender and nondistended. Normal active positive bowel sounds. No hepatosplenomegaly or masses appreciated. EXTREMITIES: No clubbing, cyanosis or edema. IMPRESSION/REPORT/PLAN Chest heaviness with slight breathing problem. At this point I have suggested that we might need to think about either gastroesophageal reflux disease or possible reactive airway disease. Management options as well as plans for a workup was discussed with the patient. We have currently chosen to give a trial of omeprazole 20 mg capsule to be taken once a day. I have also asked her to continue taking her Flonase spray as well as add Claritin on it. Side effects of the medication were discussed with the patient. If the symptoms do get better she will be kept on proton pump inhibitors continuously. Ifnot we will probably need a trial either for bronchodilator or do a pulmonary function test. Patient is agreeable with this plan. I will be seeing the patient back as needed. Vinod Orr/ Electronically Signed By: CARLOS VANG MD On: 04/22/2012 06:47 PM Source: [facility] MHSDOLBEYNONRADSYS Document Id: [id number] O REPAIR PERSON documented in this encounter Miscellaneous Notes Miscellaneous - Carlos Vang M.D. - 04/13/2012 3:14 PM CST Ambulatory Depart Summary [place] [id number] Visit Information Name: HARDYANTIONEBETTY LinDENICEBRITTNY NEW [facility] Number: [id number] Visit Date: 04/13/2012 15:14:41 Attending Provider: CARLOS VANG MD Primary Care [...] medications. Medication/Strength Dose Route Frequency Indications/Special Instructions/Comments omeprazole (omeprazole 20 mg oral delayed release capsule) 20 mg Oral once a day dextroamphetamine-amphetamine (Adderall 10 mg oral tablet) 10 mg Oral once a day (in the morning) cannot be refilled before 04/01/12 fluticasone nasal (Flonase 50 mcg/inh nasal spray) 1 spray(s) Nasal two times a day Attention: If you have any medications at home that are not on this list, DO NOT take them until youcontact your provider for clarification. Additional Information: Source: [facility] POWERCHART Document Id: [id number] O REPAIR PERSON Miscellaneous - Carlos Vang M.D. - 04/13/2012 3:14 PM CST Ambulatory Patient Summary [address] [address] Visit Information Name: DENICE OWENS [facility] Number: [id number] Current Date: 04/13/2012 15:14:42 Physicians Attending Provider: CARLOS VANG MD Primary Care Provider: CARLOS VANG MD Your Medications Here is a list of your medications. It is important to take your medications as directed. Use a pillbox or chart to help remind you to take your medications. Please let your doctor or nurse know if you have problems taking your medications. Medication/Strength Dose Route Frequency Indications/Special Instructions/Comments omeprazole (omeprazole 20 mg oral delayed release capsule) 20 mg Oral once a day dextroamphetamine-amphetamine (Adderall 10 mg oral tablet) 10 mg Oral once a day (in the morning) cannot be refilled before 04/01/12 fluticasone nasal (Flonase 50 mcg/inh nasal spray) 1 spray(s) Nasal two times a day Attention: If you have any medications at [...] Upcoming Appointments Date Time Location Reason Provider 04/21/2012 10:00 [facility] Your Goals/Additional instructions: Source: [facility] POWERCHART Document Id: [id number] O REPAIR PERSON Miscellaneous - Conversion, Historical Provider Ser - 04/13/2012 2:50 PM 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/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 Entered On: 04/13/2012 14:54 BANJO REPAIR PERSON Performed On: 04/13/2012 14:50 BANJO REPAIR PERSON by DINO FONTENOT LPN Intake Chief Complaint : Past 2 months pt feels like she has to cough but unable to, she becomes winded andfeels fatigue now for the past week has had a CHRISTINE Temperature Core : 37.0C(Converted to: 98.6DegF) Peripheral Pulse Rate : 80/min Systolic Blood Pressure : 118mmHg Diastolic Blood Pressure : 80mmHg NIBP Mean : 93mmHg BP Location : Right upper extremity Blood Pressure Cuff Size : Regular Actual Weight : 59.1kg(Converted to: 130lb 5oz) Dosing Weight Clinic : 59.10kg DINO FONTENOT ELEAZAR - 04/13/2012 14:50 BANJO REPAIR PERSON Subjective Pain Symptoms : Yes DINO FONTENOT ELEAZAR 04/13/2012 14:50 BANJO REPAIR PERSON Pain Pain Assessment Grid Pain 1 Location : Head (Comment: headache [DINO FONTENOT [employer] 04/13/2012 14:50 BANJO REPAIR PERSON] ) Laterality : Bilateral (Comment: headache on top of head [PO DINO [employer] 04/13/2012 14:50 BANJO REPAIR PERSON] ) Intensity : 7 DINO FONTENOT [employer] 04/13/2012 14:50 BANJO REPAIR PERSON Dependent Habits Tobacco Use/Currently Using : No Smoking Status : Never smoker DINO FONTENOT [employer] 04/13/2012 14:50 BANJO REPAIR PERSON Tobacco Use Grid Last Use : never DINO FONTENOT [employer] 04/13/2012 14:50 BANJO REPAIR PERSON Caffeine Use Grid Caffeine Use : Current Type : Soft drinks Frequency : Daily CHARLOTTEDINO STRINGER COMMISS[employer] 04/13/2012 14:50 BANJO REPAIR PERSON Recreational Drug Use Grid Drug Use : None RYANNBALBIRDINO STRINGER [employer] 04/13/2012 14:50 BANJO REPAIR PERSON Allergy Allergies (Active) NKA Estimated Onset Date: Unspecified ; Created By: BRITTANY WALTON; Reaction Status: Active ; Category: Drug ; Substance: NKA ; Type: Allergy ; Updated By: BRITTANY WALTON; Reviewed Date: 02/03/2012 15:55 CDT [facility]ART Document Id: [id number] Miscellaneous - Yana Lopez R.N. - 04/13/2012 9:20 AM CST General Message From: YANA LOPEZ RN ([facility] Triage Nurse) To: [facility] Triage Nurse; Sent: 04/13/2012 09:20:00 BANJO REPAIR PERSON Subject: General Message calling for an appointment for his for sinus respiratory symptoms. [facility] will be home this afternoon. No specific info available regarding symptoms. She is scheduled at 3 pm today. Source: [facility] POWERCHART Document Id: [id number] Electronically signed by Conversion, [facility] Engineering Department Chair [id number] at 09/26/2016 4:00 PM CDT documented in this encounter Plan of Treatment Not on filedocumented as of this encounter Visit Diagnoses Not on filedocumented in this encounter
--- OUTSIDE RECORDS SUMMARY | 2021-12-10 15:39 | XMS_ITS | Encounter Summary ---
:1980 Author Organization [facility] Address [address] [place] [address] Care Team Providers Name Role Phone Unavailable Primary Care Provider Unavailable Encounter Details Date Type Department Care Team Description 09/29/2012 Hospital Encounter HX [facility] Carlos Vang M.D. 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 - 09/29/2012 3:53 PM CDT [id number] CHIEF COMPLAINT/REASON FOR VISIT Physical examination for administrative purposes. HISTORY OF PRESENT ILLNESS Denice comes in to have a complete physical examination performed. 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 She would like to have her complete physical examinationperformed, her lab work updated and documentations filled. She currently enjoys good health. Denies any problems. She says that she runs almost 8 miles every day without any significant problems of chest pain or shortness of breath. She has been fairly healthy without any concerns today. She also would like a letter addressed to [facility] [employer] pertaining to her use of Ritalin. PAST MEDICAL/SURGICAL HISTORY Significant for ADHD. Surgical history: section and tubal ligation. ALLERGIES None. CURRENT MEDICATIONS Consists of Ritalin 10 mg tablet twice a day. Ibuprofen as needed. SOCIAL HISTORY Nonsmoker, nondrinker. No street drug abuse in the past. FAMILY HISTORY Significant for sister with a history of depression. Father with history of hypertension. Brother with history of migraine and mother with history of migraine. SYSTEMS REVIEW GENERAL: Denies fever, chills or fatigue, weight loss or night sweats. HEAD AND NECK: Negative. No change in any of the patient's 5 senses. Able to masticate and deglutinate normally. ENT: No recurrentotitis, sinusitis or pharyngitis. CHEST: No cough. No sputum or dyspnea. No hemoptysis. CARDIOVASCULAR: No tachyrhythmia or angina-like pain, orthopnea, paroxysmal nocturnal dyspnea, or peripheral edema. No history of intermittent claudication. ABDOMEN: No weight change. Appetite is good. No history of nausea, vomiting, reflux or dyspepsia. No other abdominal discomforts. No change in bowel habits. No constipation or diarrhea. Denies hematemesis, melena or hematochezia. No mucus or pus. No history of hepatitis. GENITOURINARY: Denies dribbling. No nocturia, dysuria, urgency, frequency or hematuria. NEUROLOGIC: No change in balance, gait or coordination. SKIN: No concerning rashes or moles or lumps.ANESTHESIA: No problems with anesthesia in the past. BLEEDING TENDENCY: No history of bleeding tendencies or blood transfusions. MUSCULOSKELETAL: No history of persistent joint pain, erythema or swelling. PHYSICAL EXAMINATION VITAL SIGNS: With blood pressure of 132/82, heart rate of 104, temperature 36.9, weight is 59.6 kg and measures 167.5 cm with a BMI of 21.24. GENERAL: In no apparent distress, comfortable and cooperative. HEENT: Normocephalic, atraumatic. EOMI. PERRL. No conjunctival injection. Nose patent bilaterally without erythema or drainage. Oropharynx: [place] mucous membranes without lesions, exudate or drainage. NECK: Supple without lymphadenopathy. No thyromegaly or thyroid masses. CARDIOVASCULAR: Regular rate and rhythm without murmur, gallop or rubs. LUNGS: Clear to auscultation bilaterally without wheezing or rales. ABDOMEN: Soft, nontender and nondistended. Normal active positive bowel sounds. No hepatosplenomegaly or masses appreciated. EXTREMITIES: No clubbing, cyanosis or edema. NEUROLOGIC EXAMINATION: Cranial nerves II-XII are normal. No sensorimotor deficit noted. Power 5/5 in all extremities. Gait not compromised. Deep tendon reflexes intact. MENTAL STATUS: Patient is of average build, [...] and long-term memory intact. Good insight and judgement. LABORATORY: Work from today reveals a hemoglobin of 13.4, hematocrit of 39, white cell count of 5.9,platelet count of 160. Normal electrolyte panel. Normal kidney and liver function tests. Fasting glucose of 82. Urinalysis normal. Total cholesterol of 156, triglyceride 69, HDL of 72 and LDL of 70.6. This was updated the patient. IMPRESSION/REPORT/PLAN Physical examination for administrative purpose. Complete physical examination was performed. No further workup has been recommended. Lab work has been updated. Paperwork for her application has been filled. Please have a look at the scanned document for details. No further recommendation has been made. I have refilled her Ritalin today. She seems to be doing very well in terms of her ADHD controlled. A letter for [employer] will also be sent. Geraldo OrrSCinthia/tong Electronically Signed By: CARLOS VANG MD On: 10/10/2012 06:15 PM Source: [facility] MHSDOLBEYNONRADSYS Document Id: [id number] documented in this encounter Miscellaneous Notes Miscellaneous - Yana Lopez RCinthiaN. 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 patient was called Addendum by CARLOS VANG MD on 25 November 2012 12:29:46 CDT Approved Order:methylphenidate (Ritalin 10 mg oral tablet) 1 tab(s) PO 2xDay AM & Afternoon call [phone] when rx is ready Qty: 60 tab(s) Refills: 0 Substitutions Allowed Print - [id number] Signed by CARLOS VANG MD 11/25/2012 12:29:39 From: YANA LOPEZ RN (AL High Risk Patient) To: CARLOS VANG MD; Sent: 11/24/2012 10:17:53 CDT Subject: Med Management On hold pending signature Order:methylphenidate (Ritalin 10 mg oral tablet) 1 tab(s) PO 2xDay AM & Afternoon call [phone] when rx is ready Qty: 60 tab(s) Refills: 0 Substitutions Allowed Print - [id number] Patient requesting refill of Ritalin 10 mg po bid. She can be reached at [phone] when rx is ready.Last visit- physical for school on 09-29-12. Source: [facility] POWERCHART Document Id: [id number] Electronically signed by Zac [facility] Specialist [id number] at 09/23/2016 1:07 AM CDT Miscellaneous - Carlos Vang M.D. - 09/29/2012 4:50 PM CDT Ambulatory Patient Summary [address] [place] [address] Visit Information Name: DENICE OWENS [facility] Number: [id number] Current Date: 09/29/2012 16:50:10 Physicians Attending Provider: CARLOS VANG MD Primary Care Provider: CARLOS VANG MD Your Medications Here is a list of your medications. It is important to take your medications as directed. Use a pillbox or chart to help remind you to take your medications. Please let your doctor or nurse know if you have problems taking your medications. Medication/Strength Dose Route Frequency Indications/Special Instructions/Comments methylphenidate (Ritalin 10 mg oral tablet) 10 [...] No Appointments found Your Goals/Additional instructions: Source: [facility] POWERCHART Document Id: [id number] Andree - Carlos Vang M.D. - 09/29/2012 4:50 PM CDT Ambulatory Depart Summary [address] [place] [address] Visit Information Name: DENICE OWENS [facility] Number: [id number] Visit Date: 09/29/2012 16:50:09 Attending Provider: CARLOS VANG MD Primary Care [...] medications. Medication/Strength Dose Route Frequency Indications/Special Instructions/Comments methylphenidate (Ritalin 10 mg oral tablet) 10 [...] your provider for clarification. 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 Entered On: 09/29/2012 16:03 CDT Performed On: 09/29/2012 16:00 CDT by LINDA DAWKINS Intake Chief Complaint : Px / Form Temperature Core : 36.9 DegC(Converted to: 98.4 DegF) Peripheral Pulse Rate : 104 /min (HI) Systolic Blood Pressure : 132 mmHg Diastolic Blood Pressure : 82 mmHg NIBP Mean : 99 mmHg BP Location : Right upper extremity Blood Pressure Cuff Size : Regular Height : 167.5 cm(Converted to: 5 ft 6 inch(es), 65.94 inch(es)) Actual Weight : 59.6 kg(Converted to: 131 lb 6 oz) Weight Source : Standing scale Dosing Weight Clinic : 59.6 kg Clinic BSA : 1.67 Body Mass Index : 21.24 kg/m2 LINDA DAWKINS - 09/29/2012 16:00 CDT General Info Languages : Tuvaluan LINDA DAWKINS - 09/29/2012 16:00 CDT Subjective Pain Symptoms : No LINDA DAWKINS - 09/29/2012 16:00 CDT Dependent Habits Tobacco Use/Currently Using : No Smoking Status : Never smoker LINDA DAWKINS - 09/29/2012 16:00 CDT Tobacco Use Grid Last Use : never LINDA DAWKINS - 09/29/2012 16:00 CDT Alcohol Use : No LINDA DAWKINS - 09/29/2012 16:00 CDT Caffeine Use Grid Caffeine Use : Current Type : Soft drinks Frequency : Weekly Amount : 3 cans per week LINDA DAWKINS - 09/29/2012 16:00 CDT Recreational Drug Use Grid Drug Use : None LINDA DAWKINS - 09/29/2012 16:00 CDT [facility] POWER[facility] Document Id: [id number]!36 documented in this encounter Plan of Treatment Not on filedocumented as of this encounter Visit Diagnoses Not on filedocumented in this encounter
--- OUTSIDE RECORDS SUMMARY | 2021-12-10 15:39 | XMS_ITS | Encounter Summary ---
:1980 Author Organization [facility] Address [address] [place] [address] Care Team Providers Name Role Phone Unavailable Primary Care Provider Unavailable Encounter Details Date Type Department Care Team Description 08/12/[address] [facility] CARDIOLOG Mati James M.D., Ph.D. 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 - 08/12/2011 12:00 AM CDT [id number] CHIEF COMPLAINT/PURPOSE OF VISIT 1. Flushing. 2. Palpitations. 3. Tachycardia. 4. Hypertension. HISTORY OF PRESENT ILLNESS Mrs. Owens is a pleasant 31-year-old woman from the [facility] who serves in non-flying capacity in the [employer]. She describes a 6-week history of worsening palpitations and intermittent episodes of unheralded flushing, nausea and blood pressure increases up to 180 systolically and up to 120 diastolically. Mrs. Owens also has a long standing history of headaches which have become much more severe over the last 6-8 weeks. In addition to the above she describes her toes turning purple in the shower and often turning purple together with itching when she is in bed at night. Mrs. Owens does not describe dyspnea or chest pain at rest or with exertion. Mrs. Owens describes a life long history of stable exercise intolerance. She tends to get dizzy and presyncopal with long runs. She is able to manage the 1.5 miles required for her physical within the prescribed amount of time. She can prevent her symptoms to some extent by adequate prehydration. She has never tried compression stockings and has never been in midodrine or similar drugs. Mrs. Owens apparently was first noted to having increased heart rate when he enlisted for the at the age of 17. Initially she was not to be admitted, but subsequently received a waiver. Based on her recent symptoms, Mrs. Owens has been tentatively diagnosed with anxiety disorder. She notes that taking clonidine or sipping wine will help relieve her palpitations and also the flushing and nausea, when present, within 45 minutes. Mrs. Owens has not previously undergone invasive diagnostic or therapeutic cardiovascular procedures. She carries no personal history of cardiovascular disease. Specifically, she denies prior myocardial infarction, congestive heart failure, stroke, valvular disease, electrophysiologic abnormalities or congenital heart disease. Mrs. Owens reports her mother having been diagnosed with supraventricular tachycardia and several paternal granduncles having in the early 50s. PAST MEDICAL/SURGICAL HISTORY Reviewed in electronic medical record. Accuracy confirmed with patient. SOCIAL HISTORY Reviewed in electronic medical record. Accuracy confirmed with patient. FAMILY HISTORY Reviewed in electronic medical record. Accuracy confirmed with patient. CURRENT MEDICATIONS Reviewed in electronic medical record. Accuracy confirmed with patient. ALLERGIES Reviewed in electronic medical record. Accuracy confirmed with patient. SYSTEMS REVIEW GENERAL: Difficulty sleeping. Occasional anxiety. Denies excessive fatigue, excessive thirst or heat or cold intolerance. DERMATOLOGIC: Denies rash or hives. HEENT: Denies headaches. Denies hearing changes, ringing in ears, ear pain, visual disturbances, epistaxis, or difficulty swallowing. CARDIOVASCULAR: See History of Present Illness. RESPIRATORY: See History of Present Illness. GASTROINTESTINAL: Denies belching, abdominal pain, anorexia, black or tarry stools, frequent nausea or vomiting, diarrhea or constipation. No history of bleeding ulcers. MUSCULOSKELETAL: Denies neck pain, joint stiffness or pain. NEUROLOGIC: See History of Present Illness. Remaining review of systems negative. PHYSICAL EXAM VITAL SIGNS: Reviewed in electronic medical record. GENERAL: Normal body habitus. Well groomed. PSYCHIATRIC: Normal mood and affect. Oriented to person, place, and time. EYES: No xanthelasma or conjunctivitis. ENT: No oral mucosal pallor or cyanosis. HEART: Pronounced fluctuation of heart rate with respiration. Intermittent breif episodes of tachycardia for 5-6 beats. Normal first and second heart sounds. No murmurs, gallops, or rubs. Jugular venous pressure and pulsation normal. VESSELS: No carotid bruits. Normal pedal pulses. LUNGS: Normal respiratory effort and air movement. Clear to auscultation. ABDOMEN: Normal sized liver and spleen. No abdominal masses or tenderness. EXTREMITIES: No clubbing or cyanosis. No lower extremity edema. GAIT: Normal. SKIN: Blotchy erythema on the right side of the neck and below the right side of the chin. No stasis dermatitis or ulceration. LABORATORY/RADIOLOGY Urine HIAA and serum metanephrines within normal limits. Electrocardiogram (July 02, 2011), tracing viewed personally, my interpretation is as follows: Atrial tachycardia with short IL. Heart rate 131 beat per minute. Compared to July 03, 2011, her heart rate is increased. Holter monitor (July 23, 2011): Sinus rhythm and sinus tachycardia with episodes of atrial tachycardia with rate up to 171 beat per minute. Echocardiogram (July 23, 2011): 112% of functional aerobic capacity achieved. No chest pain. Echocardiogram negative for ischemia. IMPRESSION/REPORT/PLAN 1. Palpitations. 2. Intermittent tachycardia. 3. Flushing. 4. Blood pressure fluctuations. 5. Life long history of exercise intolerance. 6. Family history of supraventricular tachycardia and sudden cardiac . 7. Normal left ventricular function. 8. Absence of ischemia. PLAN: I had a long discussion with Mrs. Owens and her . Her electrocardiogram does show episodes of atrial tachycardia at rates that make it unlikely to be sinus. Her family history of supraventricular tachycardia is recognized. However, I am having difficulty reconciling the episodes of flushing and hypertension with paroxysmal supraventricular tachycardia. At this stage we will start looking for a unifying cause of tachycardia, flushing and episodic hypertension. There is no current laboratory evidence of adrenaline or serotonin producing tumors and we will abandon that line of investigation for now. I believe that Mrs. Owens's symptoms are most consistent with autonomic dysfunction. To this end, we will obtain a battery of tests to include 24-hour urinary sodium, orthostatic serum catecholamines, autonomic reflex screen, thermoregulatory sweat test and cardiovascular tilt table along with 24-hour concomitant ECG and blood pressure monitoring. With this information we will have her see autonomic neurology in [place]. We note that she has not had a complete resting echocardiogram, but the resting portion of the stress echocardiogram did not suggest significant abnormalities. We will revisit addressing left ventricular function and structure in detail along with consideration of an electrophysiology consultation if the first round of evaluation outlined above is unrewarding. I will plan on seeing Mrs. Owens back after all tests and consults have been obtained to chart a further course from here. The patient and her had ample time to ask questions at the end of our meeting. All questions were answered to the best of my abilities. At the end of our meeting, the patient verbalized understanding of the plan of care. Shiela James M.D., Ph.D./mmb Electronically Signed By: SHIELA JAMES MD PHD On: 08/13/2011 09:55 AM Modified by and Electronically Signed by: SHIELA JAMES MD PHD On: 08/13/2011 09:55 AM Source: [facility] MHSDOLBEYNONRADSYS Document Id: [id number] documented in this encounter Nursing Notes Nanci Rudolph, L.P.N. - 08/12/2011 3:47 PM CDT No Change in medication . Dr. James would like some test ran in [place] includes Autonomic reflex screen ,termoregulatory sweat test,orthostatic sermum catecholamines,cardiovascular tilt table test, before seeing Autonomic Neurologist . Return visit [facility] Dr. James after test and consults results. P atient understood. A copy of Dr. Berger instruction was given to Adelaida Peterson Electronically Signed By: NANCI RUDOLPH On: 08/12/2011 03:55 PM Source: [facility] POWERCHART Document Id: [id number] documented in this encounter Miscellaneous Notes Miscellaneous - Shiela James M.D., Ph.D. - 09/09/2011 12:00 AM CDT [id number] DENICE OWENS September [birth year], [address] [place] [phone] To Whom It May Concern: Mrs. Owens is currently undergoing cardiology evaluation. This will include appointments at [facility] in [place] which will occur from October 04-. Until her cardiology evaluation is complete, Mrs. Owens should abstain from vigorous exercise. Please do not hesitate to contact us if you have questions or concerns. Sincerely, Shiela James M.D., Ph.D. Department of Cardiology hrf Electronically Signed By: SHIELA JAMES MD PHD On: 09/10/2011 08:28 AM Source: [facility] MHSDOLBEYNONRADSYS Document Id: [id number] Telephone Encounter - Conversion, Historical Provider Ser - 09/07/2011 3:37 PM CDT Phone Message Document Contains Addenda Addendum by BRAD BRODY on 17 Sep 2011 16:11:43 CDT A letter was dictated and sent to pt. Addendum by BRAD BRODY on 08 Sep 2011 11:05:34 CDT pt returned call. She states she needs a letter stating she is unable to exercise without furhter testing. I told her Dr. James will return on 09/09/11 and I will address with him. Addendum by MAGGIE BROWN RN on 07 Sep 2011 17:31:26 CDT Received message back from Dr. James stating I can't provide a letter to that effect without any test results that would support the conclusion that it is safe for her to exercise. Attempted to call patient and phone number provided but no answer. Left message for her to please return our call regarding her questions. Addendum by MAGGIE BROWN RN on 07 Sep 2011 17:00:21 CDT Message relayed to Dr. James. However, recommended tests in [place] to evaluate these symptoms are not scheduled until October 04 and follow-up for discussion of test results with Dr. James is notscheduled until 10/21/11. Will contact patient when I hear back from Dr. James with his response to her question. From: VALERIE FERNANDEZ RN ([place] Cardiology/Int Med Triage Nurse) To: JANESSA RAMIREZ GAME AUTHOR; Cc: SHIELA JAMES MD PHD; [place] Cardiology Nurse; Sent: 09/07/2011 15:37:16 CDT Subject: Phone Message Caller is: ( x ) Patient ( ) Mother ( ) Father ( ) Spouse ( ) Daughter ( ) Son ( ) Pharmacy ( ) Other: Physician: Patient MRN #: Reason for Call: Message: Patient called and said she saw Dr. James on 08/12/11 for palpitations, tachycardia and flushing. Says she is in the and needs to have a physical fitness test. Says the doctors are requesting a letter from you stating patient is OK to exercise. Patient is requesting that theletter be faxed to her work place at [phone]. Denice can be reached at [phone] she is aware Dr. James is not at [facility] until 09/09/11. Advice/Action: Source used: ( ) Verbalizes understanding [...] back cell phone number ( ) Source: [facility] POWERCHART Document Id: [id number] Miscellaneous - Shiela James M.D., Ph.D. - 08/12/2011 2:33 PM CDT Ambulatory Patient Summary [address] [address] Visit Information Name: DENICE OWENS Current Date: 08/12/2011 14:33:53 Physicians Attending Provider: SHIELA JAMES MD PHD [...] medications. Medication/Strength Dose Route Frequency Indications/Special Instructions/Comments hydrOXYzine (Vistaril 50 mg oral capsule) 50 mg Oral four times a day metoprolol (Metoprolol Tartrate 25 mg oral tablet) 25 mg Oral two times a day alprazolam (Xanax 1 mg oral tablet) 1 mg Oral three times a day zolpidem (Ambien 10 mg oral tablet) 10 mg Oral once a day (at bedtime) sleep disturbance metoclopramide (Reglan 10 mg oral tablet) 20 [...] Upcoming Appointments Date Time Location Reason Provider 08/19/2011 09:45 [facility] Cardiology consult/birchem/passing out Your Goals/Additional instructions: [facility] Document Id: [id number] Miscellaneous - Shiela James M.D., Ph.D. - 08/12/2011 2:33 PM CDT Ambulatory Depart Summary [address] [address] Visit Information Name: ROMAN DENICE LYNN Visit Date: 08/12/2011 14:33:53 Attending Provider: SHIELA JAMES MD PHD Primary [...] medications. Medication/Strength Dose Route Frequency Indications/Special Instructions/Comments hydrOXYzine (Vistaril 50 mg oral capsule) 50 mg Oral four times a day metoprolol (Metoprolol Tartrate 25 mg oral tablet) 25 mg Oral two times a day alprazolam (Xanax 1 mg oral tablet) 1 mg Oral three times a day zolpidem (Ambien 10 mg oral tablet) 10 mg Oral once a day (at bedtime) sleep disturbance metoclopramide (Reglan 10 mg oral tablet) 20 mg Oral once 2 tablets one time for each headache dextroamphetamine-amphetamine (Adderall) 10 mg Oral once a day (in the morning) Attention: If you have any medications at home that are not on this list, DO NOT take them until youcontact your provider for clarification. Additional Information: Yes - . [facility] Document Id: [id number] Miscellaneous - Nanci Rudolph L.P.N. - 08/12/2011 1:19 PM CDT Adult Research Administrator Intake/History Document Has Been Updated Adult Research Administrator Intake/History Entered On: 08/12/2011 13:26 CDT Performed On: 08/12/2011 13:19 CDT by NANCI RUDOLPH Intake Apical Heart Rate : 100/min NANCI RUDOLPH - 08/12/2011 13:31 CDT Chief Complaint : Palpitations refer NANCI Dumas - 08/12/2011 13:19 CDT NANCI RUDOLPH - 08/12/2011 13:31 CDT Systolic Blood Pressure : 110mmHg Diastolic Blood Pressure : 70mmHg NIBP Mean : 83mmHg BP Location : Right upper extremity Blood Pressure Cuff Size : Large Height : 165cm(Converted to: 5ft 5inch(es), 64.96inch(es)) Actual Weight : 54.5kg(Converted to: 120lb 2oz) Dosing Weight Clinic : 54.50kg Clinic BSA : 1.58 Body Mass Index : 20.02kg/m2 NANCI RUDOLPH - 08/12/2011 13:19 CDT Subjective Pain Symptoms : No NANCI RUDOLPH - 08/12/2011 13:19 CDT Dependent Habits Tobacco Use/Currently Using : No Smoking Status : Never smoker NANCI RUDOLPH - 08/12/2011 13:19 CDT Tobacco Use Grid Last Use : never NANCI RUDOLPH - 08/12/2011 13:19 CDT Alcohol Use : No NANCI RUDOLPH 08/12/2011 13:19 CDT Caffeine Use Grid Caffeine Use : Current Type : Soft drinks Frequency : Daily NANCI RUDOLPH - 08/12/2011 13:19 CDT Recreational Drug Use Grid Drug Use : None NANCI RUDOLPH - 08/12/2011 13:19 CDT Allergy Allergies (Active) NKA Estimated Onset Date: Unspecified ; Created By: BRITTANY WALTON; Reaction Status: Active ; Category: Drug ; Substance: NKA ; Type: Allergy ; Updated By: BRITTANY WALTON; Reviewed Date: 08/12/2011 13:19 CDT Source: [facility] [employer] Document Id: [id number] CDT!4 documented in this encounter Plan of Treatment Not on filedocumented as of this encounter Visit Diagnoses Not on filedocumented in this encounter
--- OUTSIDE RECORDS SUMMARY | 2021-12-10 15:39 | XMS_ITS | Encounter Summary ---
:1980 Author Organization [facility] Address [address] [place] [address] Care Team Providers Name Role Phone Unavailable Primary Care Provider Unavailable Encounter Details Date Type Department Care Team Description 02/14/2013 Hospital Encounter HX [facility] FAMILYPRA Carlos Nolan M.D. 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 documented as of this encounter Plan of Treatment Not on filedocumented as of this encounter Visit Diagnoses Not on filedocumented in this encounter
--- OUTSIDE RECORDS SUMMARY | 2021-12-10 15:39 | XMS_ITS | Encounter Summary ---
:1980 Author Organization [facility] Address [address] [place] [address] Care Team Providers Name Role Phone Unavailable Primary Care Provider Unavailable Encounter Details Date Type Department Care Team Description 12/23/2012 Hospital Encounter HX [facility] OBGYJoycelyn Maciel APRN, C.N.P. 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 documented as of this encounter H&P Notes Joycelyn Carr APRN, C.N.P. - 12/23/2012 1:30 PM CDT [id number] CHIEF COMPLAINT/REASON FOR VISIT Annual exam. HISTORY OF PRESENT ILLNESS 32-year-old G2, P2-0-0-2 having had ablation and bilateral tubal ligation for noncancerous heavy bleeding. This was done back in 2007. She had previously had 2 daughters, they are 11 and 13. The first 1 was due to failure to progress, the second was a planned repeat. She has since gotten remarried and they are desiring a child together and have sought help from [facility] in [place] and are planning to have a with a surrogate. Therefore she does present with some papers to be filled out today and mailed back to them. She states that her also has2 grown daughters, they are 27 and 25. 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 Her works in [employer] at the [employer]. SOCIAL HISTORY No tobacco. Socially uses alcohol. No drug use. Caffeine occasionally during the week. Exercise she is a daily runner. Nutrition is adequate. She does take a multivitamin. She has been for 3 years. CURRENT MEDICATIONS Multivitamin with magnesium. Ritalin. 10 mg twice a day. Ibuprofen as needed for pain. Excedrin Migraine as needed. ALLERGIES No known food, drug or latex allergies. VACCINES: She states she is up-to-date. She is in the national [employer] and states she has had a Tdap as well as both hepatitis series. FOOT SPECIALIST HISTORY: See history of present illness. She does deny any abnormal Pap smears or STDs in herhistory. She is not having periods at all since her ablation. PAST MEDICAL/SURGICAL HISTORY ADHD on Ritalin. Sees Dr. Vang. She has a history of heart palpitations was seen by cardiology Dr. James for a year and states that eventually it went away and was likely POTS. Dr. James's last note stated re-EKG in 6 months. This has not been done since June 2011. Therefore will do that today. FAMILY HISTORY She has 2 brothers and a sister that are healthy. Mom with migraines. She also had ulcerative colitis and had her colon removed at age 48. She is 52 years now has a J-pouch. Dad is alive and healthy. He has hypertension. Paternal grandfather is healthy. Paternal grandfather of Alzheimer's. Maternal grandmother around age 50 from breast cancer which was diagnosed around age 45 and paternal grandmother is healthy. SYSTEMS REVIEW GENERAL: Patient denies unexplained weight gain or loss. Denies fatigue or any other associated symptoms. HEENT: Denies blurred vision, double vision. Denies hoarseness or difficulty swallowing. Deniesoral cavity ulcers or changes. Does not routinely see the eye doctor. She does routinely see the dentist. She is encouraged a complete eye exam. RESPIRATORY: Denies productive cough or dyspnea. CARDIOVASCULAR: Denies history of chest pain or shortness of breath. Denies heart palpitations. Denies swelling of extremities. GASTROINTESTINAL: Denies change in appetite, nausea, vomiting, constipation or diarrhea. GENITOURINARY: Denies frequency, urgency, or dysuria. Denies symptoms of urinary stress incont inence. Denies vaginal discharge, pelvic or abdominal pain. MUSCULOSKELETAL: Denies bone or joint discomfort or low back pain. NEUROLOGIC: Denies syncopal episodes. No dizziness. Denies weakness, paresthesias or tremors of extremities. ENDOCRINE: Patient denies heat or cold intolerance, polyuria, polydipsia, hot flashing or night sweats. DERMATOLOGIC: Denies rashes, change in moles, pruritus or pigmentation changes. Denies bruising. PSYCHIATRIC: Denies any prolonged periods of sadness. Has never been treated for depression or other mental health disorders. Denies current or past physical, emotional, sexual abuse or violence. PHQ9P is a 0. PHYSICAL EXAMINATION Well-nourished, well-developed female in no acute distress. MENTAL STATUS: Mood and affect appear normal. VITAL SIGNS: Height 168. Weight 60. BMI 21, blood pressure 122/76. HEENT: Eyes PERRLA. Ears are clear bilaterally with good light reflex noted. Throat within normal limits with no visible exudate. Oropharynx is pink and moist. Dentition in good repair. NECK: Symmetrical to inspection. Trachea midline. No palpable lymphadenopathy. Thyroid is within normal limits of size and there are no palpable nodules. LUNGS: Respirations are easy. Lungs are clear bilaterally to auscultation. HEART: Regular rate and rhythm without murmurs or gallops noted. BREASTS: Examined in the upright and supine position. To inspection the breasts are symmetrical withno obvious dimpling or retraction noted. Bilaterally the axillae are free of any palpable masses or lymphadenopathy. Breast tissue is soft, nontender to palpation, and there are no distinct palpable masses noted. No nipple discharge on exam, and the patient denies any history of such. Self- breast examis reviewed with the patient and encouraged on a monthly basis. BACK: Spine is straight. There is no CVA tenderness bilaterally. ABDOMEN: Soft and flat, muscular. No tenderness or guarding to palpation. No palpable masses or organomegaly on exam. EXTREMITIES: Skin is pink, warm, and dry. No rashes or lesions. No dependent edema or cyanosis noted. Nail beds are pink with no clubbing noted. PELVIC: Groin: No lymphadenopathy or herniation noted. External genitalia appears within normal limits. No lesions noted. BSU negative. Perineum intact. Vagina: Appears pink and rugated with normal discharge. Cervix: Earling, smooth, with no lesions or cervical discharge noted. Pap smear obtained. GC andchlamydia obtained. Uterus: On bimanual exam the uterus is small, firm, smooth, moves freely, and there is no cervical motion tenderness. Bladder is nontender. Adnexa: To palpation bilaterally the adnexa reveal no palpable masses or fullness. No tenderness to palpation. Rectovaginal: The anus and perineum are normal in appearance. LABORATORY: Review September 2012: Normal CBC, electrolytes. Chem panel: Lipids total 156, HDL 72, LDL 78, triglycerides 69. Urinalysis negative. IMPRESSION/REPORT/PLAN 1. Annual healthcare maintenance. Pap smear with HPV typing done. If both are negative she will moveto 5-year intervals. She is encouraged to be seen annually for breast and pelvic exams and perform monthly self-breast exam. Will go ahead and screen for gonorrhea and chlamydia as well as she is not sure if she has been screened since she was remarried 3 years ago. 2. Paperwork is filled out with no reservations or concerns to the [facility] and mailed to them. 3. Will go ahead and repeat her EKG as recommended by Dr. James June of 2011. 4. Congratulated on her choice to have a surrogate and encouraged to call with anything we can do for her. Riley Pelayo.S.N., C.N.P./tiffany Electronically Signed By: JOYCELYN CARR RN, CNP On: 12/28/2012 10:39 AM Source: [facility] Document Id: [id number] documented in this encounter Procedure Notes Martita Jarrett R.N. - 01/12/2013 4:45 PM CDT PPD Reading PPD Reading Entered On: 01/12/2013 16:46 CDT Performed On: 01/12/2013 16:45 CDT by MARTITA JARRETT PPD Reading MM of Induration : 0 mm PPD Interpretation : Negative PPD Placed On : Right inner forearm PPD Date/Time Administered : 01/10/2013 14:36 CDT MARTITA JARRETT - 01/12/2013 16:45 CDT Source: [facility] TVbeat Document Id: [id number] CDT!6 documented in this encounter Miscellaneous Notes Miscellaneous - Joycelyn Carr APRN, C.N.P. - 01/06/2013 8:47 AM CDT Results Notification Document Contains Addenda Addendum by CHELSEA KIM on 06 January 2013 09:12:51 CDT noted From: JOYCELYN CARR RN NUT TAPPER To: PEGGY Carr Nurse; Sent: 01/06/2013 08:47:13 CDT ! Show up: 01/06/2013 13:47:13 [facility] Subject: Results Notification Actions: Note to Nurse Reminder Comments: neg pap, neg hpv, letter dictated Results: Date Result Type Result Name 01/05/2013 15:11 Document - DOC GEODESIST Cytology Source: [facility] TV[employer] Document Id: [id number] Miscellaneous - Joycelyn Carr APRN, C.N.P. - 01/05/2013 12:00 AM CDT [id number] DENICE OWENS January 05, 2013 [id number] [place] [id number] Dear Denice: I have received the results of your Pap smear and [facility] [place]. Your Pap smear and HPV typing are both negative which is normal and reassuring. With this information, Pap smear intervals can be extended, however, I do encourage you to be seen annually for breast and pelvic exams. Gonorrhea and chlamydia testing are both negative which is normal and reassuring and your EKG reported back as normal sinus rhythm which is also reassuring. If you have any questions or concerns regarding any of these results, please do not hesitate to contact me through the phone nurse at [phone]. It was a pleasure meeting you and I look forward to seeing you in the future. Sincerely, Osbaldo Pelayo, C.N.P. Department [facility] Obstetrics [facility] Enclosure Electronically Signed By: JOYCELYN CARR RN NUT TAPPER On: 01/05/2013 04:09 PM Source: [facility] MHSDOLBEYNONRADSYS Document Id: [id number] Miscellaneous - Joycelyn Carr APRN, C.N.P. - 12/23/2012 2:47 PM CDT Ambulatory Patient Summary [place] [facility] [address] [facility] [place] [address] Visit Information Name: DENICE OWENS [facility] Number: [id number] Current Date: 12/23/2012 14:47:20 Physicians Attending Provider: JOYCELYN CARR RN, CNP Primary Care Provider: CARLOS VANG MD Your Medications Here is a list of your medications. It is important to take your medications as directed. Use a pillbox or chart to help remind you to take your medications. Please let your doctor or nurse know if you have problems taking your medications. Medication/Strength Dose Route Frequency Indications/Special Instructions/Comments/Notes multivitamin with minerals (multivitamin with minerals Multiple Vitamins with Zinc oral capsule) 1 cap(s) Oral once a day with magnesium methylphenidate (Ritalin 10 mg oral tablet) 10 mg Oral two times a day AM & Afternoon call [phone] when rx is ready ibuprofen (ibuprofen 200 mg oral tablet) 400 mg Oral as needed as needed for Pain APAP/ASA/caffeine (Excedrin Migraine Geltab oral tablet) 2 tab(s) Oral every 6 hours Attention: If you have any medications at [...] No Appointments found Your Goals/Additional instructions: Source: [facility] POWERCHART Document Id: [id number] Miscellaneous - Joycelyn Carr APRN, C.N.P. - 12/23/2012 2:47 PM CDT Ambulatory Depart Summary [address] [address] Visit Information Name: ANDREW OWENSFER SHAQ [facility] Number: [id number] Visit Date: 12/23/2012 14:47:19 Attending Provider: JOYCELYN CARR RN [facility] Primary Care Provider: CARLOS VANG MD DENICE OWENS has been given the following list of medications: Your Medications It is important to take your medications as directed. Use a pill box or chart to help remind you to take your medications. Please let your doctor or nurse know if you have problems taking your medications. Medication/Strength Dose Route Frequency Indications/Special Instructions/Comments/Notes multivitamin with minerals (multivitamin with minerals Multiple Vitamins with Zinc oral capsule) 1 cap(s) Oral once a day with magnesium methylphenidate (Ritalin 10 mg oral tablet) 10 mg Oral two times a day AM & Afternoon call [phone] when rx is ready ibuprofen (ibuprofen 200 mg oral tablet) 400 mg Oral as needed as needed for Pain APAP/ASA/caffeine (Excedrin Migraine Geltab oral tablet) 2 tab(s) Oral every 6 hours Attention: If you have any medications at home that are not on this list, DO NOT take them until youcontact your provider for clarification. Additional Information: Source: 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 Entered On: 12/23/2012 13:53 CDT Performed On: 12/23/2012 13:52 CDT by CHELSEA KIM Intake Temperature Core : 38 DegC(Converted to: 100.4 DegF) Peripheral Pulse Rate : 60 /min Respiratory Rate : 16 /min CHELSEA KIM - 12/23/2012 14:20 CDT Chief Complaint : Annual Systolic Blood Pressure : 122 mmHg Diastolic Blood Pressure : 76 mmHg NIBP Mean : 91 mmHg Height : 168 cm(Converted to: 5 ft 6 inch(es), 66.14 inch(es)) Actual Weight : 60.1 kg(Converted to: 132 lb 8 oz) Dosing Weight Clinic : 60.1 kg Clinic BSA : 1.67 Body Mass Index : 21.29 kg/m2 CHELSEA KIM - 12/23/2012 13:52 CDT General Info Information Given By : Patient Languages : [place] Rican CHELSEA KIM - 12/23/2012 13:52 CDT Subjective Pain Symptoms : No CHELSEA KIM - 12/23/2012 13:52 CDT Dependent Habits Tobacco Use/Currently Using : No Smoking Status : Never smoker CHELSEA KIM - 12/23/2012 13:52 CDT Tobacco Use Grid Last Use : never CHELSEA KIM 12/23/2012 13:52 CDT Caffeine Use Grid Caffeine Use : Current Type : Soft drinks Frequency : Weekly Amount : 3 cans per week CHELSEA KIM - 12/23/2012 13:52 CDT Recreational Drug Use Grid Drug Use : None CHELSEA KIM - 12/23/2012 13:52 CDT Source: [facility] TV[employer] Document Id: [id number] CDT!5 Miscellaneous - Chelsea Kim L.P.NCinthia - 12/23/2012 1:52 PM CDT Health Assessment Health Assessment Entered On: 12/23/2012 13:54 CDT Performed On: 12/23/2012 13:52 CDT by CHELSEA KIM Health Assessment Complete Health Assessment Complete or Modified : Annual Health Assessment Annual Health Assessment Completed : Yes YVONNEDAVISCHELSEA - 12/23/2012 13:52 CDT Nutrition Nutrition Risk Factors by History Adult : None CHELSEA KIM - 12/23/2012 13:52 CDT Functional Current Daily Living Assistance : None CHELSEA KIM 12/23/2012 13:52 CDT Dependent Habits Tobacco Use/Currently Using : No Smoking Status : Never smoker CHELSEA KIM 12/23/2012 13:52 CDT Tobacco Use Grid Last Use : never CHELSEA KIM 12/23/2012 13:52 CDT Alcohol Use : Yes EB CHELSEA Kenny 12/23/2012 13:52 CDT Caffeine Use Grid Caffeine Use : Current Type : Soft drinks Frequency : Weekly Amount : 3 cans per week CHELSEA KIM 12/23/2012 13:52 CDT Recreational Drug Use Grid Drug Use : None YVONNEDAVISCHELSEA 12/23/2012 13:52 CDT AUDIT Tool How Often Do You Have A Drink : Monthly or less How Many Drinks in a Day When Drinking : 1 or 2 Six or More Drinks On One Occassion : Never Audit Phase 1 Score : 1 CHELSEA KIM - 12/23/2012 13:52 CDT Psychosocial Domestic Abuse Concerns : None Marital Status : Years of Marriage : 3 Number of Children : 2 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 - 12/23/2012 1:52 PM CDT PHQ-9 PHQ-9 Entered On: 12/23/2012 13:54 CDT Performed On: 12/23/2012 13:52 CDT by CHELSEA KIM PHQ-9 Little interest or pleasure in doing things : Not at all Feeling down, depressed, or hopeless : Not at all Trouble falling or staying asleep, or sleeping too much : Not at all Feeling tired or having little energy : Not at all Poor appetite or overeating : Not at all Trouble concentrating on things : Not at all Moving or speaking slowly; restless or fidgety : Not at all Thoughts that you would be better off /hurting self : Not at all Problems make work, home, or dealing with others : Not difficult at all CHELSEA KIM - 12/23/2012 13:52 CDT Source: [employer] Document Id: [id number] CDT!11 documented in this encounter Plan of Treatment Not on filedocumented as of this encounter Procedures Procedure Name Priority Date/Time Associated Comments Diagnosis HX TB SKIN TEST-LAB Routine 01/12/2013 4:45 PM Re sults for this CDT procedure are i n the results section. CHLAMYDIA TRACHOMATIS Routine 12/23/2012 3:40 PM Results for this AMPLIFIED RNA CDT procedure are in the results section. CHLAMYDIA/GONORRHOEAE Routine 12/23/2012 2:35 PM Results for this AMPLIFIED RNA CDT procedure are in the results section. PATHOLOGY GEODESIST Routine 12/23/2012 12:00 Results fo r this CYTOLOGY AM CDT procedure are i n the results section. documented in this encounter Results HX TB SKIN TEST-LAB (01/12/2013 4:45 PM CDT) P athologist Signature TB Skin Test 0 MM POWERCHART TB Skin Test Negative POWERCHART Specimen (Source) Anatomical Collection Method Collection Time Re ceived Time Location / / Volume Laterality 01/12/2013 4:45 PM CDT Carlos Vang M.D. LAB HISTORICAL ORDERS Performing Organization Address City/[facility]/ZIP Code Phon e Number POWERCHART Chlamydia Trachomatis Amplified RNA (12/23/2012 3:40 PM CDT) Component Value Ref Test Analysis Performed At Patholo gist Range Method Time Signature HXChlamydia by POWERCHART Nucleic Acid Amplification HXFinal Negative for POWERCHART Chlamydia trachomatis by DNA amplification. HXFinal Reference: POWERCHART Negative Specimen (Source) Anatomical Collection Method Collection Time Re ceived Time Location / / Volume Laterality Cervix/Endocervix 12/23/2012 3:40 PM CDT Joycelyn Carr APRN, C.N.P. LAB MICROBIOLOGY - GENERAL ORDERABLES Performing Organization Address City/[facility]/ZIP Code Phon e Number POWERCHART Chlamydia / Gonorrhoeae Amplified RNA (12/23/2012 2:35 PM CDT) Component Value Ref Test Analysis Performed At Patholo gist Range Method Time Signature HX GC by Nucleic POWERCHART Acid Amplification HXFinal Negative for POWERCHART Neisseria gonorrhea by DNA amplification . HXFinal Reference: POWERCHART Negative Specimen (Source) Anatomical Collection Method Collection Time Re ceived Time Location / / Volume Laterality Cervix/Endocervix 12/23/2012 2:35 PM CDT Joycelyn Carr APRN, C.N.P. LAB MICROBIOLOGY - GENERAL ORDERABLES Performing Organization Address City/[facility]/ZIP Code Phon e Number ABRAHAN Pathology GEODESIST Cytology (12/23/2012 12:00 AM CDT) Specimen (Source) Anatomical Location Collection Method / Collectio n Time Received Time / Laterality Volume 12/23/2012 Narrative [facility] - 01/05/2013 3:11 PM CDT [facility] in [address] ??[phone] Patient Name: DENICE OWENS Patient ID #: [id number] Collected: 12/23/2012 Address: [facility]/Zip: [id number] [place] [address] ??[phone] Received: Reported: 12/28/2012 01/03/2013 Soc. Sec. #: ?/Age/Sex 1980 (Age: 32) ??F Physician(s): PEGGY CARR CNP Copy To: ? [facility] ??[phone] [facility], ??[place] ??[id number] CYTOPATHOLOGY GEODESIST REPORT FINAL CYTOLOGIC DIAGNOSIS Pap Smear - ThinPrep: NEGATIVE FOR INTRAEPITHELIAL LESION OR MALIGNANCY SPARSE TO NO ENDOCERVICAL COMPONENT PRES ENT. SATISFACTORY SPECIMEN FOR EVALUATION. Electronically Signed Out By shahabw/01/03/2013 SHAHAB GARCIA(ASCP) The Pap test is a screening procedure an d, as such, is subject to both false positive and false negative results as evidenced by published data. ??It is not a diagnostic test and results should be inter preted in the context of the patient's h istory and other clinical findings. ??Obtaining per iodic Pap tests may help to minimize the consequences of any false negatives that may occur. Procedures/Addenda: HUMAN PAPILLOMA VIRUS TESTING (HPV) ? Date Ordered: ? 01/05/2013 ? Status: ??Signed Out Date Complete: ? 01/05/2013 ? By: ??RJ Luthi CT(ASCP) Date Reported: ? 01/05/2013 INTERPRETATION: Test: CervistaTM High Risk HPV Result: NEGATIVE FOR HIGH RISK HPV Specimen Description: ThinPrep? ?? Pap Test PreservCyt Solution The FDA-approved Hologic CervistaTM HPV High Risk Test is an in vitro diagnostic test for the qualitative detection of DNA from 14 high-risk Human Papillomavirus (HPV) types (16, 18, 31, 33, 35, 39, 45, 51, 52, 56, 58, 59, 66, and 68) in cervical specimen using the Invader? ?? chemistry, a signal amplification method for detection of specific nucleic acid sequences. Interpretation for patients with ASC-US cytology: Low likelihood of underlying high-grade CIN2-3 or cancer; results are not intended to prevent women from proceeding to colposcopy. Interpretation for patients with NILM cy tology who are over 30 years old: Very low likelihood of underlying high-grade CHAN or cancer; results do not preclude future HPV infection or cytologic abnormalities with underlying CIN2-3 or cancer. SPECIMEN(S) RECEIVED: Pap Smear - ThinPrep CLINICAL HISTORY: Date of Last PAP: 2009 ? MIKE MCKEON Other Clinical Conditions: HPV TYPING REQUESTED Joycelyn Carr APRN C.N.PCinthia LAB PAP COPATH ORDERABLES Performing Organization Address City/State/ZIP Code Phon e Number [facility] documented in this encounter Visit Diagnoses Not on filedocumented in this encounter
--- OUTSIDE RECORDS SUMMARY | 2021-12-10 15:39 | XMS_ITS | Encounter Summary ---
:1980 Author Organization [facility] Address [address] [place] [address] Care Team Providers Name Role Phone Unavailable Primary Care Provider Unavailable Encounter Details Date Type Department Care Team Description 07/20/2011 Hospital Encounter HX [facility] Ev Navarro M.D. 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 - 07/20/2011 12:00 AM CDT [id number] CHIEF COMPLAINT/REASON FOR VISIT Headache. HISTORY OF PRESENT ILLNESS The patient is a 31-year-old female who arrives into Urgent Care with complaint of tachycardia, syncope, nausea and development of a headache. The patient has been having complications with heart palpitations for several years with etiology remaining unknown. These had been evaluated by doweling machine operator and attributed to anxiety disorder. Symptoms have been escalating during the past month and she has been having heart rates up to 170 beats per minute which is attributed to sinus tachycardia. She is currently on event monitor and now Dr. Nolan has established her onto a Holter monitor to get more of a continuous data with stress echo that is scheduled in the next 72 hours. She has been previously on Adderall but has had to discontinue the medication. She has been given metoprolol to start after the stress echo has been complete. She has also been on Xanax 1 mg 3 times a day and Ativan in the past but with only marginal results. She has been having complications with headache that has been resistant to nonsteroidal anti-inflammatory, tramadol, steroids, antinausea medications, Fiorinal and Percocet. She is frustrated that there is not any particular medication that has been useful for her. Using Imitrex class medications causes tachycardia. She was evaluated last night in the emergency room and EKG demonstrates a normal sinus rhythm without evidence of a Brugada or Ohmss-Jmkyxwuna-Evnbb syndrome. Her chemistries are within normal limits including TSH. She is getting workup for flushing syndrome that may attribute it from a tumor into the adrenal glands. The patient is here this evening. She is fearing that her headache started at 4/10 after the ER visit from last night has no escalated to 7/10. She is worried that the headaches will be worse tonight. She is looking for a medication that will not interfere with the results of the event monitor and at the same finding ways to control her symptoms as well. ALLERGIES None. CURRENT MEDICATIONS Was on Adderall but none at this time. Ambien 10 mg. Xanax 1 mg 3 times a day. She is taking 1 tablet today. PAST MEDICAL/SURGICAL HISTORY Insomnia. Cephalgia. Anxiety disorder. Flushing syndrome. Cephalgia. Heart palpitations. SYSTEMS REVIEW If not mentioned in HPI is noncontributory. SOCIAL HISTORY No tobacco use and no recent consumption of alcohol. PHYSICAL EXAM VITAL SIGNS: Temperature 37.7, pulse 94, respirations 16, blood pressure 142/108 with pulse oximetry 98%, weight of 53 kg. GENERAL: She is a female in no apparent distress and nontoxic in appearance. She is here with her who is supportive of care. NECK: Supple. No lymphadenopathy. LUNGS: Clear to auscultation. No rales, rhonchi. CARDIOVASCULAR: Regular rate and rhythm with no gallops, rubs or murmurs. ABDOMEN: Positive bowel sounds. No focal tenderness noted. SKIN: No rash. EXTREMITIES: Warm with no clubbing, cyanosis or edema with negative Homen sign. LABORATORY/RADIOLOGY Reviewing the EKG demonstrates at times she has tachycardia without evidence of Brugada wide and QTC syndrome or Eeqgm-Sxnrrepmq-Dpnuo syndrome. The patient last night had a Chem-7 including sodium, potassium within normal limits. She has historically had normal thyroid stimulating hormone and hemoglobin. Her CT of the head last night was also within normal limits. Differential diagnosis include pulmonary embolism with posterior orthostatic tachycardia syndrome and appropriate sinus tachycardia, episodic ventricular tachycardia are certain possibilities; however, the patient has been having a pulse oximetry between 98 and 100% which would decrease the probability of development of pulmonary embolism. Her heart rate is less than 100 beats. She does not take any estrogen based medications. Her perk score fortuitously satisfies all 8/8 questions. After reviewing the results and discussing the importance not to interfere with her upcoming cardiac tests, the patient was willing to have a trial of Vistaril to help control the headache, nausea and anxiety. IMPRESSION/REPORT/PLAN 1. Nausea. 2. Anxiety. 3. Heart palpitations. 4. Headache. PLAN: The patient will have a trial of Vistaril 50 mg 4 times a day. She will continue to be placed on event monitor. Dr. Nolan is also debating about initiating a Holter monitor. She is scheduled for echocardiogram on June. The patient to follow up if new symptoms develop, particularly shortness of breath or chest pain. Ev Navarro M.D./jesus Electronically Signed By: EV NAVARRO On: 07/27/2011 03:41 PM Source: [facility] MHSDOLBEYNONRADSYS Document Id: [id number] documented in this encounter Miscellaneous Notes Miscellaneous - Lydia Young, L.P.N. - 07/20/2011 6:45 PM CDT Ambulatory Vitals Height Weight Ambulatory Vitals Height Weight Entered On: 07/20/2011 18:47 CDT Performed On: 07/20/2011 18:45 CDT by LYDIA YOUNG Vitals/Ht/Wt Systolic Blood Pressure : 142mmHg (HI) Diastolic Blood Pressure : 108mmHg (>HHI) NIBP Mean : 119mmHg BP Location : Right upper extremity (Comment: Regular cuff. [LYDIA YOUNG - 07/20/2011 18:45 CDT] ) LYDIA YONUG - 07/20/2011 18:45 CDT Source: [employer] Document Id: [id number] CDT!6 Miscellaneous - Lydia Young L.P.N. 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 Temperature Core : 37.7C(Converted to: 99.9DegF) Peripheral Pulse Rate : 94/min Systolic Blood Pressure : 142mmHg (HI) Diastolic Blood Pressure : 110mmHg (>HHI) NIBP Mean : 121mmHg BP Location : Right upper extremity (Comment: Regular cuff. Hypertension protocol. [LYDIA YOUNG - 07/20/2011 18:42 CDT] ) SpO2 : 98% Oxygen Therapy : Room air LYDIA YOUNG - 07/20/2011 18:42 CDT Subjective Pain Symptoms : Yes LYDIA YOUNG - 07/20/2011 18:42 CDT Pain Pain Assessment Grid Pain 1 Location : Head Intensity : 7 LYDIA YOUNG - 07/20/2011 18:42 CDT Dependent Habits Tobacco Use/Currently Using : No Smoking Status : Never smoker LYDIA YOUNG - 07/20/2011 18:42 CDT Tobacco Use Grid Last Use : never LYDIA YOUNG - 07/20/2011 18:42 CDT Caffeine Use Grid Caffeine Use : Current Type : Soft drinks Frequency : Daily LYDIA YOUNG 07/20/2011 18:42 CDT Recreational Drug Use Grid Drug Use : None LYDIA YOUNG - 07/20/2011 18:42 CDT Allergy Allergies (Active) NKA Estimated Onset Date: Unspecified ; Created By: BRITTANY WALTON; Reaction Status: Active ; Category: Drug ; Substance: NKA ; Type: Allergy ; Updated By: BRITTANY WALTON; Reviewed Date: 07/20/2011 18:40 CDT [facility] Document Id: [id number] CDT!32 documented in this encounter Plan of Treatment Not on filedocumented as of this encounter Visit Diagnoses Not on filedocumented in this encounter
--- OUTSIDE RECORDS SUMMARY | 2021-12-10 15:39 | XMS_ITS | Encounter Summary ---
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
--- OUTSIDE RECORDS SUMMARY | 2021-12-10 15:39 | XMS_ITS | Encounter Summary ---
:1980 Author Organization [facility] Address [address] [place] [address] Care Team Providers Name Role Phone Unavailable Primary Care Provider Unavailable Encounter Details Date Type Department Care Team Description 01/25/2012 Hospital Encounter HX [facility] Carlos Vang M.D. 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 - 01/25/2012 2:46 PM CDT [id number] CHIEF COMPLAINT/REASON FOR VISIT Sinusitis. HISTORY OF PRESENT ILLNESS This 31-year-old lady comes in today complaining about significant pain in the forehead. She says that every time she tries to lay down or face down she has significant amount of headache. Patient alsogives a history of having had recurrent sinus problems in the past. These symptoms have been going on for at least a month now, but recently has been getting worse. She also says that every time she wakes up in the morning she feels something draining out to her nose. She also complains of significantsoreness of the left ear which started almost a couple of days ago. She does give a history of having been diagnosed with allergies in the past for which she takes Zyrtec or Claritin. Denies any nausea, denies any vomiting, denies any chest pain or shortness of breath. Denies any fever or cough. PAST MEDICAL/SURGICAL HISTORY Reviewed. CURRENT MEDICATIONS Reviewed. CURRENT MEDICATIONS Reviewed. ALLERGIES Reviewed. SOCIAL HISTORY Reviewed. FAMILY HISTORY Reviewed. SYSTEMS REVIEW As above. All other systems reviewed and negative. PHYSICAL EXAM VITAL SIGNS: Reviewed. GENERAL: In no apparent distress, comfortable and cooperative. HEENT: Normocephalic, atraumatic. EOMI. PERRL. No conjunctival injection. Nose patent bilaterally without erythema or drainage. Oropharynx: Bradner mucous membranes without lesions, exudate or drainage. Bilateral medullary sinus was slightly tender, the frontal sinus was significantly tender. NECK: Supple without lymphadenopathy. No thyromegaly or thyroid masses. CARDIOVASCULAR: Regular rate and rhythm without murmur, gallop or rubs. LUNGS: Clear to auscultation bilaterally without wheezing or rales. ABDOMEN: Soft, nontender and nondistended. Normal active positive bowel sounds. No hepatosplenomegaly or masses appreciated. EXTREMITIES: No clubbing, cyanosis or edema. IMPRESSION/REPORT/PLAN Sinusitis frontal as well as maxillary. At this point I have suggested that we start her on amoxicillin 875 mg tablet twice a day for 10 days. Side effects of the medications were also discussed with the patient. In the meantime I have also started her on Flonase one spray to be used twice a day. Adequate rehydration was also suggested. I have also asked her to make sure that she continues Zyrtec or Claritin as needed. I will be seeing the patient back as needed. Vindo Orr/cristina Electronically Signed By: CARLOS VANG MD On: 02/02/2012 05:29 PM Source: [facility] MHSDOLBEYNONRADSYS Document Id: [id number] documented in this encounter Miscellaneous Notes Miscellaneous - Carlos Vang M.D. - 01/25/2012 3:35 PM CDT Ambulatory Patient Summary [address] [id number] Visit Information Name: JEANNINE OWENS Current Date: 01/25/2012 15:35:48 Physicians Attending Provider: CARLOS VANG MD Primary Care Provider: CARLOS VANG MD Your Medications Here is a list of your medications. It is important to take your medications as directed. Use a pillbox or chart to help remind you to take your medications. Please let your doctor or nurse know if you have problems taking your medications. Medication/Strength Dose Route Frequency Indications/Special Instructions/Comments fluticasone nasal (Flonase 50 mcg/inh nasal spray) 1 spray(s) Nasal two times a day amoxicillin (amoxicillin 875 mg oral tablet) 875 mg Oral two times a day for 10 Days dextroamphetamine-amphetamine (Adderall) 10 mg Oral once a [...] 10:00 [facility]inic Your Goals/Additional instructions: Source: [facility] POWERCHART Document Id: [id number] Miscellaneous - Carlos Vang M.D. - 01/25/2012 3:35 PM CDT Ambulatory Depart Summary [address] [place] [address] Visit Information Name: JEANNINE OWENS Visit Date: 01/25/2012 15:35:47 Attending Provider: CARLOS VANG MD Primary Care [...] medications. Medication/Strength Dose Route Frequency Indications/Special Instructions/Comments fluticasone nasal (Flonase 50 mcg/inh nasal spray) 1 spray(s) Nasal two times a day amoxicillin (amoxicillin 875 mg oral tablet) 875 mg Oral two times a day for 10 Days dextroamphetamine-amphetamine (Adderall) 10 mg Oral once a day (in the morning) Attention: If you have any medications at home that are not on this list, DO NOT take them until youcontact your provider for clarification. Additional Information: Source: [facility] POWERCHART Document Id: [id number] Miscellaneous - Conversion, Historical Provider Ser - 01/25/2012 3:06 PM CDT Health Assessment Health Assessment Entered On: 01/25/2012 15:06 CDT Performed On: 01/25/2012 15:06 CDT by JENN LR LPN Health Assessment Complete Health Assessment Complete or Modified : Annual Health Assessment Annual Health Assessment Completed : Yes JENN LR LPN - 01/25/2012 15:06 CDT Nutrition Nutrition Risk Factors by History Adult : None JENN LR LPN - 01/25/2012 15:06 CDT Functional Current Daily Living Assistance : None JENN LR LPN - 01/25/2012 15:06 CDT Dependent Habits Tobacco Use/Currently Using : No Smoking Status : Never smoker JENN LR LPN - 01/25/2012 15:06 CDT Tobacco Use Grid Last Use : never JENN LR LPN - 01/25/2012 15:06 CDT Caffeine Use Grid Caffeine Use : Current Type : Soft drinks Frequency : Daily JENN LR LPN - 01/25/2012 15:06 CDT Recreational Drug Use Grid Drug Use : None JENN LR LPN - 01/25/2012 15:06 CDT Psychosocial Domestic Abuse Concerns : None JENN LR LPN - 01/25/2012 15:06 CDT Advance Directive Advanced Directives : No JENN LR LPN - 01/25/2012 15:06 CDT Educ Needs Learning Style Preference Adult Grid Patient : None Family : None JENN LR LPN - 01/25/2012 15:06 CDT Source: [employer] Document Id: [id number] Miscellaneous - Conversion, Historical Provider Ser - 01/25/2012 3:03 PM CDT 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 Intake/History Entered On: 01/25/2012 15:05 CDT Performed On: 01/25/2012 15:03 CDT by JENN LR LPN Intake Chief Complaint : sinus issues and left sore ear Temperature Core : 36.6C(Converted to: 97.9DegF) Peripheral Pulse Rate : 92/min Systolic Blood Pressure : 110mmHg Diastolic Blood Pressure : 80mmHg NIBP Mean : 90mmHg BP Location : Left upper extremity Blood Pressure Cuff Size : Regular Height : 168.2cm(Converted to: 5ft 6inch(es), 66.22inch(es)) Actual Weight : 58.5kg(Converted to: 129lb 0oz) Dosing Weight Clinic : 58.50kg Clinic BSA : 1.65 Body Mass Index : 20.68kg/m2 JENN LR LPN - 01/25/2012 15:03 CDT Subjective Pain Symptoms : Yes JENN LR LPN - 01/25/2012 15:03 CDT Pain Pain Assessment Grid Pain 1 Location : Ear Laterality : Left Intensity : 5 JENN LR [facility] 01/25/2012 15:03 CDT Dependent Habits Tobacco Use/Currently Using : No Smoking Status : Never smoker JENN LR [facility] - 01/25/2012 15:03 CDT Tobacco Use Grid Last Use : never JENN LR [facility] 01/25/2012 15:03 CDT Caffeine Use Grid Caffeine Use : Current Type : Soft drinks Frequency : Daily JENN LR Se [facility] 01/25/2012 15:03 CDT Recreational Drug Use Grid Drug Use : None JENN LR [facility] 01/25/2012 15:03 CDT Allergy Allergies (Active) NKA Estimated Onset Date: Unspecified ; Created By: BRITTANY WALTON; Reaction Status: Active ; Category: Drug ; Substance: NKA ; Type: Allergy ; Updated By: BRITTANY WALTON; Reviewed Date: 01/25/2012 15:00 CDT Source: [facility] POWERCHART Document Id: [id number] documented in this encounter Plan of Treatment Not on filedocumented as of this encounter Visit Diagnoses Not on filedocumented in this encounter
--- OUTSIDE RECORDS SUMMARY | 2021-12-10 15:39 | XMS_ITS | Encounter Summary ---
:1980 Author Organization [facility] Address [address] [place] [address] Care Team Providers Name Role Phone Unavailable Primary Care Provider Unavailable Encounter Details Date Type Department Care Team Description 02/03/[address] [facility] Carlos Vang M.D. 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 - 02/03/2012 3:33 PM CDT [id number] CHIEF COMPLAINT/REASON FOR VISIT 1. ADHD. 2. Eustachian tube dysfunction. HISTORY OF PRESENT ILLNESS This is a 31-year-old lady who comes in today along with her . She is seeing me for the firsttime regarding her ADHD. The patient gives a history of having been diagnosed with ADHD in the past.Has been taking Adderall 10 mg tablet twice a day. She stopped the medication while we were talking and dealing with her syncopal and near syncopal episodes which currently has been diagnosed as POTS. The patient recently has restarted her Adderall and wants to have that refilled. Initially was taken care of at [facility] regarding her medical issues. The patient otherwise seems to be doing well and says that after restarting her medication she seems to be doing very well and is currently back towork without any problems. She was also seen recently for upper respiratory tract infection/sinusitis. Currently status post antibiotics. She says that this infection has completely gone away and the headache is a lot better. She did have some drainage in the past out of the nose as well as some allergy issues. She wants to know if anything further can be done for that. PAST MEDICAL/SURGICAL HISTORY Reviewed. CURRENT MEDICATIONS Reviewed. ALLERGIES Reviewed. SOCIAL HISTORY Reviewed. FAMILY HISTORY Reviewed. SYSTEMS REVIEW As above. All other systems reviewed and negative. PHYSICAL EXAM VITAL SIGNS: Reviewed. GENERAL: In no apparent distress, comfortable and cooperative. HEENT: Normocephalic, atraumatic. EOMI. PERRL. No conjunctival injection. Nose patent bilaterally without erythema or drainage. Oropharynx: Bath mucous membranes without lesions, exudate or drainage. NECK: Supple without lymphadenopathy. No thyromegaly or thyroid masses. CARDIOVASCULAR: Regular rate and rhythm without murmur, gallop or rubs. LUNGS: Clear to auscultation bilaterally without wheezing or rales. ABDOMEN: Soft, nontender and nondistended. Normal active positive bowel sounds. No hepatosplenomegaly or masses appreciated. EXTREMITIES: No clubbing, cyanosis or edema. IMPRESSION/REPORT/PLAN 1. ADHD, currently the patient has been on Adderall 10 mg tablet twice a day. This has been continued. I have sent the patient with 3 month supply of the prescription for her Adderall. I will be seeingthe patient back every 3 months from now and probably space it as she feels stable. 2. Regarding eustachian tube dysfunction and currently is status post recent sinus infection, I havesuggested that she control her allergies. She is currently on Flonase as well as taking [id number] Claritin. This has not benefited much. I have suggested that she continue Flonase while trying to switch to [id number] Marlene 160 mg tablet once a day. The patient is in agreement with this plan. I will be seeing the patient back as needed. Vinod Orr/jovana Electronically Signed By: CARLOS VANG MD On: 02/11/2012 07:24 PM Source: [facility] MHSDOLBEYNONRADSYS Document Id: [id number] documented in this encounter Miscellaneous Notes Miscellaneous - Carlos Vang M.D. - 02/03/2012 5:06 PM CDT [place] [address] Visit Information Name: JEANNINE OWENS Visit Date: 02/03/2012 17:06:08 Attending Provider: CARLOS VANG MD Primary Care [...] medications. Medication/Strength Dose Route Frequency Indications/Special Instructions/Comments dextroamphetamine-amphetamine (Adderall 10 mg oral tablet) 10 mg Oral once a day (in the morning) cannot be refilled before 04/01/12 fluticasone nasal (Flonase 50 mcg/inh nasal spray) 1 spray(s) Nasal two times a day amoxicillin (amoxicillin 875 mg oral tablet) 875 mg Oral two times a day for 10 Days Attention: If you have any medications at home that are not on this list, DO NOT take them until youcontact your provider for clarification. Additional Information: Source: [facility] POWERCHART Document Id: [id number] Miscellaneous - Carlos Vang M.D. - 02/03/2012 5:06 PM CDT Ambulatory Patient Summary [place] - [address] [place] [address] Visit Information Name: JEANNINE OWENS Current Date: 02/03/2012 17:06:09 Physicians Attending Provider: CARLOS VANG MD Primary Care Provider: CARLOS VANG MD Your Medications Here is a list of your medications. It is important to take your medications as directed. Use a pillbox or chart to help remind you to take your medications. Please let your doctor or nurse know if you have problems taking your medications. Medication/Strength Dose Route Frequency Indications/Special Instructions/Comments dextroamphetamine-amphetamine (Adderall 10 mg oral tablet) 10 mg Oral once a day (in the morning) cannot be refilled before 04/01/12 fluticasone nasal (Flonase 50 mcg/inh nasal spray) 1 spray(s) Nasal two times a day amoxicillin (amoxicillin 875 mg oral tablet) 875 mg Oral two times a day for 10 Days Attention: If you have any medications at [...] 07/14/2011 Tachycardia NOS Active 07/14/2011 ADHD. 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 Intake/History Entered On: 02/03/2012 16:00 CDT Performed On: 02/03/2012 15:58 CDT by JENN LR LPN Intake Chief Complaint : follow up on sinus infection, med refills Temperature Core : 36.8C(Converted to: 98.2DegF) Peripheral Pulse Rate : 72/min Systolic Blood Pressure : 126mmHg Diastolic Blood Pressure : 88mmHg NIBP Mean : 101mmHg BP Location : Right upper extremity Blood Pressure Cuff Size : Regular Height : 168.2cm(Converted to: 5ft 6inch(es), 66.22inch(es)) Actual Weight : 58.5kg(Converted to: 129lb 0oz) Dosing Weight Clinic : 58.50kg Clinic BSA : 1.65 Body Mass Index : 20.68kg/m2 JENN LR [facility] - 02/03/2012 15:58 CDT Subjective Pain Symptoms : No JENN LR LPN - 02/03/2012 15:58 CDT Dependent Habits Tobacco Use/Currently Using : No Smoking Status : Never smoker JENN LR ANCIENT ART CURATOR - 02/03/2012 15:58 CDT Tobacco Use Grid Last Use : never JENN LR LPN - 02/03/2012 15:58 CDT Caffeine Use Grid Caffeine Use : Current Type : Soft drinks Frequency : Daily JENN LR ANCIENT ART CURATOR - 02/03/2012 15:58 CDT Recreational Drug Use Grid Drug Use : None JENN LR [facility] 02/03/2012 15:58 CDT Allergy Allergies (Active) NKA Estimated Onset Date: Unspecified ; Created By: BRITTANY WALTON; Reaction Status: Active ; Category: Drug ; Substance: NKA ; Type: Allergy ; Updated By: BRITTANY WALTON; Reviewed Date: 02/03/2012 15:55 CDT Source: [facility] Document Id: [id number] documented in this encounter Plan of Treatment Not on filedocumented as of this encounter Visit Diagnoses Not on filedocumented in this encounter
--- OUTSIDE RECORDS SUMMARY | 2021-12-10 15:39 | XMS_ITS | Encounter Summary ---
:1980 Author Organization [facility] Address [address] [place] [address] Care Team Providers Name Role Phone Unavailable Primary Care Provider Unavailable Encounter Details Date Type Department Care Team Description 07/18/2012 Hospital Encounter HX [facility] Km Aguilar, NGHIA, C.N.P. 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 - 07/18/2012 12:48 PM CDT [id number] CHIEF COMPLAINT/REASON FOR VISIT Denice presents to the clinic today complaining of sores in her mouth that have been there for several days. HISTORY OF PRESENT ILLNESS She states that she has had an outbreak of these 3 times in the past 2 months. She states that the pain increases with talking or eating and that certain foods make the pain worse. She said that she ate a banana this morning and it made the pain worse. Currently she has sores located on the left side of her tongue. She says that they have occurred in other areas, however, it does seem to effect the left side of her tongue more than normal. She denies any difficulties swallowing. No drooling. No other cold symptoms. No fevers, vomiting, or diarrhea. CURRENT MEDICATIONS Adderall 5 mg twice a day. ALLERGIES None. PHYSICAL EXAMINATION VITAL SIGNS: Blood pressure 102/78, temperature 36.4, pulse 80, weight of 59.2 kg and a height of 165 cm. GENERAL: She is a very pleasant, cooperative 32-year-old female who appears in no acute distress. Upon inspection of the mouth, there are 2 circular lesions located on the left side of the tongue. Theyare erythematous and have circumscribed margins. They are painful to touch. There are no other lesions located in the rest of the mouth. IMPRESSION/REPORT/PLAN Aphthous ulcers. I would like to treat her with Triamcinolone 0.1% paste. She should apply that 4 times a day and I would like her to continue that for 7 days. In addition to that she will do a chlorhexidine 0.12% swish. She will do that twice a day. I would like her to abstain from citrusy type foods for the next couple of days until the areas heal as well as keep a diary for future reoccurrences to try to identify any triggers of this. If symptoms worsen or do not improve, she is advised to call. She was happy with the plan of care and stated understanding. Alejandra Aguilar R.N., C.N.PCinthia/raul Electronically Signed By: ALEJANDRA AGUILAR RN, CNP On: 07/28/2012 02:05 PM Modified by and Electronically Signed by: ALEJANDRA AGUILAR RN, CNP On: 07/28/2012 02:05 PM Source: [facility] TRINOSDOLBEYNEMILY Document Id: [id number] documented in this encounter Miscellaneous Notes Miscellaneous - Alf Terry R.N. - 08/16/2012 10:14 AM CDT Med Management Document Contains Addenda Addendum by JENN LR LPN on 17 August 2012 7:51 CDT patient was called, message was left to call [phone]. written Rx is up on 4th floor, front desk monitor. Addendum by YOBANY VANG MD on 16 August 2012 12:10:18 CDT Approved Order:dextroamphetamine-amphetamine (Adderall 5 mg oral tablet) 1 tab(s) PO 2xDay AM & Noon Qty: 60 tab(s) Refills: 0 Substitutions Allowed Print - [id number] Signed by YOBANY VANG MD 08/16/2012 12:10:11 From: ALF TERRY RN ([facility] Medicine Nurse Line) To: YOBANY VANG MD; Sent: 08/16/2012 10:14:11 CDT Subject: Med Management On hold pending signature Order:dextroamphetamine-amphetamine (Adderall 5 mg oral tablet) 1 tab(s) PO 2xDay AM & Noon Qty: 60 tab(s) Refills: 0 Substitutions Allowed Print - [id number] Patient last saw you 05/11/12. 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 Last fill 07/11/12. Thanks. Source: [facility] POWERCHART Document Id: [id number] Miscellaneous - Alf Terry RJennifer. - 07/19/2012 12:05 PM CDT General Message Document Contains Addenda Addendum by ALF TERRY RN on 19 July 2012 13:24:40 CDT Patient called back and advised as recommended. Encouraged to call if symptoms persist or worsen. Patient voices understanding and agrees with plan. Addendum by ALF TERRY RN on 19 July 2012 13:19:47 CDT Message left to return call. Addendum by ALEJANDRA AGUILAR RN POLYTECHNIC REGISTRAR on 19 July 2012 12:31:00 CDT From: ALEJANDRA AGUILAR RN POLYTECHNIC REGISTRAR To: [facility] Nurse Line; Sent: 07/19/2012 12:31:00 CDT Subject: RE: General Message I would like her to continue with current regimen. I will send a prescription to [facility] for topical lidocaine to help with the discomfort. She may use this up to four times a day. Thanks! From: ALF TERRY RN ([facility] Medicine Nurse Line) To: ALEJANDRA AGUILAR RN POLYTECHNIC REGISTRAR; Sent: 07/19/2012 12:05:53 CDT Subject: General Message Patient called today in follow up of her appointment yesterday for mouth sores. She believes it has worsened sore under tongue looks bigger and notes my tongue itches left side only. Also complainsof burning without swelling. Afebrile. She started Triamcinolone0.1% paste (used last night and one time this am). Patient states the mouthwash works real well until after drinking and the burning sensation resumes. Any further interventions? Please advise. MARTINEZ Barraza. [phone] Source: [facility] POWERCHART Document Id: [id number] Miscellaneous - Alejandra Aguilar CCinthiaNJitendra - 07/18/2012 3:46 PM CDT Ambulatory Depart Summary [address] [place] [address] Visit Information Name: DENICE OWENS [facility] Number: [id number] Visit Date: 07/18/2012 15:46:12 Attending Provider: ALEJANDRA AGUILAR RN, CNP Primary Care Provider: YOBANY VANG MD DENICE OWENS has been given the following list of medications: Your Medications It is important to take your medications as directed. Use a pill box or chart to help remind you to take your medications. Please let your doctor or nurse know if you have problems taking your medications. Medication/Strength Dose Route Frequency Indications/Special Instructions/Comments triamcinolone topical (triamcinolone 0.1% mucous membrane paste) See Instructions Topical up to 4xDay to affected areas for 7 day(s) chlorhexidine topical (chlorhexidine 0.12% mucous membrane liquid) 0.018 gm Oral two times a day for7 Days dextroamphetamine-amphetamine (Adderall 5 mg oral tablet) 5 mg Oral two times a day AM & Noon Attention: If you have any medications at home that are not on this list, DO NOT take them until youcontact your provider for clarification. Additional Information: Source: [facility] POWERCHART Document Id: [id number] Miscellaneous - Alejandra Aguilar, C.N.P. - 07/18/2012 3:46 PM CDT Ambulatory Patient Summary [address] [place] [address] Visit Information Name: DENICE OWENS [facility] Number: [id number] Current Date: 07/18/2012 15:46:13 Physicians Attending Provider: ALEJANDRA AGUILAR RN, CNP Primary Care Provider: YOBANY VANG MD Your Medications Here is a list of your medications. It is important to take your medications as directed. Use a pillbox or chart to help remind you to take your medications. Please let your doctor or nurse know if you have problems taking your medications. Medication/Strength Dose Route Frequency Indications/Special Instructions/Comments triamcinolone topical (triamcinolone 0.1% mucous membrane paste) See Instructions Topical up to 4xDay to affected areas for 7 day(s) chlorhexidine topical (chlorhexidine 0.12% mucous membrane liquid) 0.018 gm Oral two times a day for7 Days dextroamphetamine-amphetamine (Adderall 5 mg oral tablet) 5 mg Oral two times a day AM & Noon Attention: If you have any medications at [...] No Appointments found Your Goals/Additional instructions: Source: [facility] POWERCHART Document Id: [id number] Miscellaneous - Arti Nunes, L.P.N. - 07/18/2012 3:20 PM CDT Adult Marketing Rep Intake/History Adult Marketing Rep Intake/History Entered On: 07/18/2012 15:24 CDT Performed On: 07/18/2012 15:20 CDT by ARTI NUNES Intake Chief Complaint : mouth sores, left side the worst past several days Onset of Symptoms : 2-3 months Temperature Core : 36.4DegC(Converted to: 97.5DegF) (LOW) Apical Heart Rate : 80/min Systolic Blood Pressure : 102mmHg Diastolic Blood Pressure : 78mmHg NIBP Mean : 86mmHg BP Location : Right upper extremity Blood Pressure Cuff Size : Large Height : 165cm(Converted to: 5ft 5inch(es), 64.96inch(es)) Actual Weight : 59.2kg(Converted to: 130lb 8oz) Weight Source : Standing scale Dosing Weight Clinic : 59.20kg Clinic BSA : 1.65 Body Mass Index : 21.74kg/m2 ARTI NUNES 07/18/2012 15:20 CDT General Info Information Given By : Patient Preferred Communication Mode : Verbal Languages : Danish ARTI NUNES 07/18/2012 15:20 CDT Subjective Pain Symptoms : Yes ARTI NUNES 07/18/2012 15:20 CDT Pain Pain Assessment Grid Pain 1 Location : Other: tongue ARTI NUNES 07/18/2012 15:20 CDT Dependent Habits Tobacco Use/Currently Using : No Smoking Status : Never smoker ARTI NUNES 07/18/2012 15:20 CDT Tobacco Use Grid Last Use : never ARTI NUNES 07/18/2012 15:20 CDT Caffeine Use Grid Caffeine Use : Current Type : Soft drinks Frequency : Weekly ARTI NUNES 07/18/2012 15:20 CDT Recreational Drug Use Grid Drug Use : None ARTI NUNES 07/18/2012 15:20 CDT Allergy Allergies (Active) NKA Estimated Onset Date: Unspecified ; Created By: BRITTANY WALTON; Reaction Status: Active ; Category: Drug ; Substance: NKA ; Type: Allergy ; Updated By: BRITTANY WALTON; Reviewed Date: 07/18/2012 15:19 CDT [facility] Document Id: [id number] documented in this encounter Plan of Treatment Not on filedocumented as of this encounter Visit Diagnoses Not on filedocumented in this encounter
--- OUTSIDE RECORDS SUMMARY | 2021-12-10 15:39 | XMS_ITS | Encounter Summary ---
:1980 Author Organization [facility] Address [address] [place] [address] Care Team Providers Name Role Phone Unavailable Primary Care Provider Unavailable Encounter Details Date Type Department Care Team Description 01/23/2013 Hospital Encounter HX [facility] Melony Murillo P.A.-C. 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 documented as of this encounter Progress Notes Lizzy Murillo P.A.-C. - 01/23/2013 8:02 AM CDT [id number] CHIEF COMPLAINT/REASON FOR VISIT Toe injury. HISTORY OF PRESENT ILLNESS Patient is a 32-year-old female who presents to Urgent Care today for the above. Denice got up during the night to use the restroom. When she returned, she struck her foot on the bed leg. Immediate pain and discomfort. She reports that she has quite a bit of pain around the fourth and fifth toes. Onthe top of her foot. There has been some mild swelling. She rates her pain as 6 on a scale of 10. Denies any previous history of any injury. Is able to ambulate, but has some discomfort. PAST MEDICAL/SURGICAL HISTORY Reviewed briefly. ALLERGIES Reviewed. CURRENT MEDICATIONS Reviewed. PHYSICAL EXAMINATION VITAL SIGNS: Stable. GENERAL: This is an alert 32-year-old female. No acute distress is noted. Visualization of the foot shows mild swelling on the dorsum of the foot around the distal fourth andfifth metatarsals as well as the proximal phalanx. There is some mild bruising. Some angulation laterally of the fourth toe. Mild swelling. On palpation, most of the tenderness is at the base of the proximal phalanx of the fourth toe with little on the 5th. She has no pain more proximal in the foot atall. She has a good pulse on the dorsum of the foot as well as in the posterior tibialis. Distal neurovascular exam is normal. X-ray is done. There is fracture noted of the distal portion of the proximal phalanx of the fourth toe. Some degree of angulation is noted. I contacted Dr. Danilo Covarrubias's office. I asked for him to review the film. Question whether this needs a little bit of reduction. He is going to see the patient, so the patient was sent there yeimi seen. IMPRESSION/REPORT/PLAN 1. Contusion of foot/toe. 2. Fracture of proximal phalanx of toe, fourth. PLAN: As above. Lenny Silvestre/jaimie Electronically Signed By: LIZZY MURILLO PA-C On: 01/23/2013 02:36 PM Source: [facility] MHSDOLBEYNONTOVASYS Document Id: [id number] documented in this encounter Miscellaneous Notes Miscellaneous - Conversion, Historical Provider Ser - 01/23/2013 8:08 AM CDT Adult Electrical Inspector Intake/History Adult Electrical Inspector Intake/History Entered On: 01/23/2013 8:12 CDT Performed On: 01/23/2013 8:08 CDT by SADIQ KAT Intake Chief Complaint : hit side of bed last night-toe/foot pain Temperature Core : 36.8 DegC(Converted to: 98.2 DegF) Peripheral Pulse Rate : 92 /min Systolic Blood Pressure : 104 mmHg Diastolic Blood Pressure : 78 mmHg NIBP Mean : 87 mmHg BP Location : Right upper extremity Blood Pressure Cuff Size : Regular Actual Weight : 61 kg(Converted to: 134 lb 8 oz) Dosing Weight Clinic : 61 kg SADIQ KAT - 01/23/2013 8:08 CDT General Info Information Given By : Patient Languages : Turkish SADIQ KAT - 01/23/2013 8:08 CDT Subjective Pain Symptoms : Yes SADIQ KAT - 01/23/2013 8:08 CDT Pain Pain Assessment Grid Pain 1 Location : Foot Intensity : 6 SADIQ KAT - 01/23/2013 8:08 CDT Dependent Habits Tobacco Use/Currently Using : No Smoking Status : Never smoker SADIQ KAT - 01/23/2013 8:08 CDT Tobacco Use Grid Last Use : never SADIQ KAT - 01/23/2013 8:08 CDT Caffeine Use Grid Caffeine Use : Current Type : Soft drinks Frequency : Weekly Amount : 3 cans per week SADIQ KAT - 01/23/2013 8:08 CDT Recreational Drug Use Grid Drug Use : None SADIQ KAT - 01/23/2013 8:08 CDT Source: [employer] Document Id: [id number] CDT!37 documented in this encounter Plan of Treatment Not on filedocumented as of this encounter Procedures Procedure Name Priority Date/Time Associated Diagnosis Comme nts DX FOOT LEFT 3+ Routine 01/23/2013 8:43 AM Result s for this VIEWS CDT procedure are i n the results section. documented in this encounter Results DX Foot Left 3+ Views (01/23/2013 8:43 AM CDT) Anatomical Region Laterality Modality Lower Extremity, Foot Left Radiographic Imagi ng Specimen (Source) Anatomical Collection Method Collection Time Re ceived Time Location / / Volume Laterality 01/23/2013 8:43 AM CDT Narrative 01/23/2013 8:54 AM CDT EXAM: XR Foot Left 3 or more views INDICATION: STruck foot on leg of bed du ring night. Pain around the distal 4th/5th metatarsals. 4 views of theleft foot. Is a fracture t he proximal phalanx of the fourth toe. Remaining bones appear to be intact. Soft tissue otherwise generally normal. Impression:Fracture proximal phalanx of the fourth toe Procedure Note Yo Shah M.D. / Provider, Jones ann M.D. - 09/11/2016 EXAM: XR Foot Left 3 or more views INDICATION: STruck foot on leg of bed du ring night. Pain around the distal 4th/5th metatarsals. 4 views of theleft foot. Is a fracture t he proximal phalanx of the fourth toe. Remaining bones appear to be intact. Soft tissue otherwise generally normal. Impression:Fracture proximal phalanx of the fourth toe Patricia Garcia R.T.(R), R.T.(R)(M) IMG DIAGNOSTIC I MAGING PROCEDURES documented in this encounter Visit Diagnoses Not on filedocumented in this encounter
--- OUTSIDE RECORDS SUMMARY | 2021-12-10 15:39 | XMS_ITS | Encounter Summary ---
:1980 Author Organization [facility] Address [address] [place] [address] Care Team Providers Name Role Phone Unavailable Primary Care Provider Unavailable Encounter Details Date Type Department Care Team Description 02/14/2013 Hospital Encounter HX [facility] Valentine Prado M.D. 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 documented as of this encounter Progress Notes David Woodson M.D. - 02/14/2013 2:46 PM CDT [id number] Denice is a patient Dr. Covarrubias's I am seeing her in his absence today. She is 3 weeks and 2 days from injury of her left fourth toe. She fractured the proximal phalanx. Dr. Covarrubias did a closed reduction. She has been a cast. The cast got wet this weekend. She took it off, just has been walking in it and just went into a regular shoe today. She is really not having any pain. PHYSICAL EXAMINATION On exam she is nontender. I discussed with her caitie-taping for 3 weeks. She can then resume activities if she continues to bepainless. She will let us know if there is any other issues. Postop exam no charge. 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 Cast got wet and was removed on 02-10-13. Ptremained non WB over the weekend. Is WB today in tennis shoe. BP Location : Other: normal per pt HOMERO VANN 02/14/2013 15:04 CDT General Info Information Given By : Patient Languages : Kiswahili HOMERO VANN 02/14/2013 15:04 CDT Subjective Pain Symptoms : Yes HOMERO VANN 02/14/2013 15:04 CDT Pain Pain Assessment Grid Pain 1 Location : Foot Laterality : Left Intensity : 5 HOMERO VANN 02/14/2013 15:04 CDT Dependent Habits Tobacco Use/Currently Using : No Smoking Status : Never smoker HOMERO VANN 02/14/2013 15:04 CDT Tobacco Use Grid Last Use : never HOMERO VANN 02/14/2013 15:04 CDT Caffeine Use Grid Caffeine Use : Current Type : Soft drinks Frequency : Weekly Amount : 3 cans per week HOMERO VANN 02/14/2013 15:04 CDT Recreational Drug Use Grid Drug Use : None HOMERO VANN 02/14/2013 15:04 CDT Source: [facility]OWERCHART Document Id: [id number] CDT!30 documented in this encounter Plan of Treatment Not on filedocumented as of this encounter Procedures Procedure Name Priority Date/Time Associated Diagnosis Comme nts DX FOOT LEFT 3+ Routine 02/14/2013 3:01 PM Result s for this VIEWS CDT procedure are i n the results section. documented in this encounter Results DX Foot Left 3+ Views (02/14/2013 3:01 PM CDT) Anatomical Region Laterality Modality Lower Extremity, Foot Left Radiographic Imagi ng Specimen (Source) Anatomical Collection Method Collection Time Re ceived Time Location / / Volume Laterality 02/14/2013 3:01 PM CDT Impressions 02/14/2013 3:50 PM CDT 1. ??No fractures or dislocations. Narrative 02/14/2013 3:50 PM CDT EXAM: XR Foot Left 3 or more views INDICATION: recheck fx COMPARISON: 01/23/2013 FINDINGS: There are no fractures or dislocations. Mild degenerative changes. Procedure Note Eric Guzman M.D. / Provider, Jones ann M.D. - 09/11/2016 EXAM: XR Foot Left 3 or more views INDICATION: recheck fx COMPARISON: 01/23/2013 FINDINGS: There are no fractures or dislocations. Mild degenerative changes. IMPRESSION: 1. No fractures or dislocations. Elli Berman R.T.(R)(CT), R.T.(R) IMG DIAGNOSTIC GYPSY GING PROCEDURES documented in this encounter Visit Diagnoses Not on filedocumented in this encounter
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
--- OUTSIDE RECORDS SUMMARY | 2021-12-10 15:39 | XMS_ITS | Encounter Summary ---
:1980 Author Organization [facility] Address [address] [place] [address] Care Team Providers Name Role Phone Unavailable Primary Care Provider Unavailable Encounter Details Date Type Department Care Team Description 08/04/2011 Hospital Encounter HX NO MAPPING Ambrose Smith M.D. [address] [place] [address] 55 [phone] (Wo rk) Social History Tobacco Use Types Packs/Day Years Used Date Smoking Tobacco: Never Assessed Sex Assigned at Date Recorded Female 04/15/2017 7:38 PM [employer] documented as of this encounter Plan of Treatment Not on filedocumented as of this encounter Visit Diagnoses Not on filedocumented in this encounter
--- OUTSIDE RECORDS SUMMARY | 2021-12-10 15:39 | XMS_ITS | Encounter Summary ---
:1980 Author Organization [facility] Address [address] [place] [address] Care Team Providers Name Role Phone Unavailable Primary Care Provider Unavailable Encounter Details Date Type Department Care Team Description 01/12/2013 Hospital Encounter [facility] Carlos Vang M.D. 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 documented as of this encounter Miscellaneous Notes Miscellaneous - Tiara Robert R.N. - 02/07/2013 12:23 PM CDT General Message Document Contains Addenda Addendum by TIARA ROBERT RN on 08 February 2013 09:57:45 CDT Patient returned phone call and was informed that the Rx is at 4th floor Registrations desk. Addendum by JENN LR LPN on 08 February 2013 09:53:05 CDT From: JENN LR LPN (PEGGY Vang Nurse) To: [place] [facility] Nurse Line; Sent: 02/08/2013 09:53:05 CDT Subject: RE: General Message patient was called, message left to call [phone]. written rx up on 4th floor, front edger. Addendum by RAKAN TIDWELL RN on 08 February 2013 08:45:44 CDT From: ARKAN TIDWELL RN ([place] [facility] Nurse Line) To: PEGGY Vang Nurse; Sent: 02/08/2013 08:45:44 CDT Subject: FW: General Message Addendum by RAKAN TIDWELL RN on 08 February 2013 08:45:34 CDT Gabby, please call pt. once rx up at 4th floor desk. 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 Thanks carlos From: TIARA ROBERT RN ([place] [facility] Nurse Line) To: CARLOS VANG MD; Sent: 02/07/2013 12:23:00 CDT Subject: General Message Patient calling today for refill of her Adderall. She has been on Adderall XR 5mg. She is asking ifshe can get the Adderall 5mg Immediate Release to take twice a day. Please advise. Phone # as listed. Source: [facility] POWERCHART Document Id: [id number] Electronically signed by Conversion, [facility] Software Solutions Architect [id number] at 09/23/2016 11:14 PM CDT documented in this encounter Plan of Treatment Not on filedocumented as of this encounter Visit Diagnoses Not on filedocumented in this encounter
--- OUTSIDE RECORDS SUMMARY | 2021-12-10 15:39 | XMS_ITS | Encounter Summary ---
:1980 Author Organization [facility] Address [address] [place] [address] Care Team Providers Name Role Phone Unavailable Primary Care Provider Unavailable Encounter Details Date Type Department Care Team Description 07/23/2011 Hospital Encounter HX [facility] CARDIOLOG Carlos Nolan M.D. 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 - 07/23/2011 3:44 PM CDT Clinic Procedure Documentation Clinic Procedure Documentation Entered On: 07/23/2011 15:45 CDT Performed On: 07/23/2011 15:44 CDT by MAGGIE DONOVAN RN Checklist Ambulatory Procedure : Stress echo. MAGGIE DONOVAN RN - 07/23/2011 15:44 CDT Amb/Home Prep Complete Surgical/Procedure Consent Signed : Yes MAGGIE DONOVAN RN - 07/23/2011 15:44 CDT Pain Symptoms : No MAGGIE DONOVAN RN - 07/23/2011 15:44 CDT Allergy Allergies (Active) NKA Estimated Onset Date: Unspecified ; Created By: BRITTANY WALTON; Reaction Status: Active ; Category: Drug ; Substance: NKA ; Type: Allergy ; Updated By: BRITTANY WALTON; Reviewed Date: 07/20/2011 18:40 CDT Source: [facility] POWERCHART Document Id: [id number] documented in this encounter Plan of Treatment Not on filedocumented as of this encounter Visit Diagnoses Not on filedocumented in this encounter
--- OUTSIDE RECORDS SUMMARY | 2021-12-10 15:39 | XMS_ITS | Encounter Summary ---
:1980 Author Organization [facility] Address [address] [place] [address] Care Team Providers Name Role Phone Unavailable Primary Care Provider Unavailable Encounter Details Date Type Department Care Team Description 07/23/2011 Hospital Encounter HX [facility]CL CARDIOLOG Carlos Nolan M.D. 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 Amato, for elevated heart rate with activity, monitor #[id number] patient verbalized understanding to bring moniter back tomorrow at this time or later. Electronically Signed By: SHANNAN DIA On: 07/23/2011 05:03 PM Source: [facility] POWERCHART Document Id: [id number] documented in this encounter Plan of Treatment Not on filedocumented as of this encounter Visit Diagnoses Not on filedocumented in this encounter
--- OUTSIDE RECORDS SUMMARY | 2021-12-10 15:39 | XMS_ITS | Encounter Summary ---
:1980 Author Organization [facility] Address [address] [place] [address] Care Team Providers Name Role Phone Unavailable Primary Care Provider Unavailable Encounter Details Date Type Department Care Team Description 01/10/2013 Hospital Encounter HX [facility] Carlos Nolan M.D. 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 documented as of this encounter Plan of Treatment Not on filedocumented as of this encounter Visit Diagnoses Not on filedocumented in this encounter
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
--- OUTSIDE RECORDS SUMMARY | 2021-12-10 15:39 | XMS_ITS | Encounter Summary ---
:1980 Author Organization [facility] Address [address] [place] [address] Care Team Providers Name Role Phone Unavailable Primary Care Provider Unavailable Encounter Details Date Type Department Care Team Description 03/19/2014 Hospital Encounter [facility] Carlos Nolan M.D. 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
--- OUTSIDE RECORDS SUMMARY | 2021-12-10 15:39 | XMS_ITS | Encounter Summary ---
:1980 Author Organization [facility] Address [address] [place] [address] Care Team Providers Name Role Phone Unavailable Primary Care Provider Unavailable Encounter Details Date Type Department Care Team Description 07/13/2013 Hospital Encounter [facility]X [facility] OBGYJoycelyn Maciel APRN, C.N.P. 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 documented as of this encounter Progress Notes Joycelyn Carr APRN, C.N.P. - 07/13/2013 3:45 PM CDT [id number] CHIEF COMPLAINT/REASON FOR VISIT information. HISTORY OF PRESENT ILLNESS Denice is a 33-year-old, G2, P2-0-0-2, having had ablation with bilateral tubal ligation for noncancerous heavy bleeding back in 2007. Prior to that, she had 2 daughters, her first was a due to failure to progress and the second was a plan to repeat. I last saw her for an annual exam on December 23. At that time, she told me that she was desiring a child through surrogacy and she presents with her after 3 years today and informed me that they are with their own biologic child through surrogate, who is in [facility]. She states that the due date is December 20, 2013, planning avaginal delivery. This will be surrogate's fourth delivery, first time surrogacy. They are joining her tomorrow up in the [facility] for 3D ultrasound and hoping to find out the gender of the baby. So far,the has been healthy and they have 1 viable embryo that was implanted and it took at the first try. They are very excited. Denice's has 2 grown daughters, age 28 and 25 and also a granddaughter and Denice's daughters are 12 and 13. She states that she lactated after Janie's birthfor about a month, and after her second daughter's for about 2 weeks, fairly average milk supply; however, she does supplement as well. She states that neither one of them matched well and that she pumped. Their interest today is re-lactating. She is interested in doing that without medication if possible. We sat down and discussed supplemental nursing system with the tube to the breast, talkedabout reinitiating with pumping with the hospital guide pump. She is advised to look into insurance coverage and cost of this for them and also the possibility of medication. I advised them that I wish to discuss the plan with our absence management consultant, Nanci Dacosta and get back to them. They are happy with this plan. Denice is on no medications that would be contraindicated to breast feeding. She is taking [facility] multivitamin. She is not using any tobacco, drugs or alcohol, and is a healthy woman. 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 LAB REVIEW September of 2012, normal CBC, electrolytes, and chem panel. Lipid: Total 156, HDL 72, LDL 78, and triglycerides 69. Urinalysis negative. Pap smear with HPV typing both negative in November of 2012. Gonorrheaand Chlamydia in November also negative for screening. EKG was normal sinus rhythm. VITAL SIGNS Weight 61 kg. Blood pressure 130/82. BMI is 21. About 15 minutes spent with the patient, greater than 50% counseling. Osbaldo Pelayo, C.N.P./suly Electronically Signed By: JOYCELYN CARR RN SUPERVISOR BEATER ROOM On: 07/17/2013 09:27 AM Source: [facility] MHSDOLBEYNONRADSYS Document Id: [id number] documented in this encounter Miscellaneous Notes Miscellaneous - Joycelyn Carr APRN, C.N.P. - 07/21/2013 9:50 AM CDT relactation Document Contains Addenda Addendum by JOYCELYN CARR RN, CNP on 10 August 2013 10:55:56 CDT I called Denice she has been busy and not picked up pump yet. Surrogate is going well. Little boy due in November. From: JOYCELYN CARR RN SUPERVISOR BEATER ROOM To: JOYCELYN CARR RN, CNP; Cc: NANCI DACOSTA NP; Sent: 07/21/2013 09:50:20 CDT Subject: relactation I spoke to Denice and advised to start double pumping with hosp grade pump 15min 6-8 times daily to attempt to relactate. She would like to not use medications at this time. She will update us in a few weeks. Source: [facility] POWERCHART Document Id: [id number] Miscellaneous - Joycelyn Carr APRN, C.N.P. - 07/13/2013 4:49 PM CDT Ambulatory Patient Summary [address] [place] [id number] Visit Information Name: DENICE OWENS [facility] Number: [id number] Current Date: 07/13/2013 16:49:55 Physicians Attending Provider: JOYCELYN CARR RN SUPERVISOR BEATER ROOM Primary Care Provider: YOBANY VANG MD DENICE [...] Take Indications/Special Instructions/Comments/Notes for Patient Medication Changes/Routing ibuprofen (ibuprofen 200 mg oral tablet) 2 Tablet(s), Oral, as needed as needed for Pain multivitamin with minerals (multivitamin with minerals Multiple Vitamins with Zinc oral capsule) 1 cap, Oral, once a day with magnesium Stop Taking the Following Medications: APAP/ASA/caffeine (Excedrin Migraine Geltab oral tablet) dextroamphetamine-amphetamine (dextroamphetamine-amphetamine 10 mg oral tablet) HYDROcodone-acetaminophen (Lortab 5/500 oral tablet) methylphenidate (Ritalin 10 mg oral tablet) Medication list as of 07-13-13 16:49 Attention: If you have any medications at home that are not on this list, DO NOT take them until youcontact your provider for clarification. Give a copy of your medication list to your primary care provider. Update your medication list any time medications or doses are changed and carry your medication list at all times in case of emergency. Your Allergies & Intolerances Substance Reaction Symptoms [...] 01/23/2013 Your Upcoming Appointments Date Time Location Reason Provider No Appointments found Attention: Contact your local Clinic if further appointment detail needed. Your Goals/Additional instructions: Source: [facility] POWERCHART Document Id: [id number] Miscellaneous - Joycelyn Carr APRN, C.N.P. - 07/13/2013 4:49 PM CDT Ambulatory Discharge Medication List [place] [place] [id number] Visit Information Name: DENICE OWENS [facility] Number: [id number] Visit Date: 07/13/2013 16:49:54 Attending Provider: JOYCELYN CARR RN SUPERVISOR BEATER ROOM Primary Care Provider: YOBANY VANG MD DENICE [...] Take Indications/Special Instructions/Comments/Notes for Patient Medication Changes/Routing ibuprofen (ibuprofen 200 mg oral tablet) 2 Tablet(s), Oral, as needed as needed for Pain multivitamin with minerals (multivitamin with minerals Multiple Vitamins with Zinc oral capsule) 1 cap, Oral, once a day with magnesium Stop Taking the Following Medications: APAP/ASA/caffeine (Excedrin Migraine Geltab oral tablet) dextroamphetamine-amphetamine (dextroamphetamine-amphetamine 10 mg oral tablet) HYDROcodone-acetaminophen (Lortab 5/500 oral tablet) methylphenidate (Ritalin 10 mg oral tablet) Medication list as of 07-13-13 16:49 Attention: If you have any medications at home that are not on this list, DO NOT take them until youcontact your provider for clarification. Give a copy of your medication list to your primary care provider. Update your medication list any time medications or doses are changed and carry your medication list at all times in case of emergency. Additional Information: Source: [facility] POWERCHART Document Id: [id number] Miscellaneous - Chelsea Kim L.P.N. 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 Intake/History Adult Motor Vehicle Inspector Intake/History Entered On: 07/13/2013 15:51 CDT Performed On: 07/13/2013 15:50 CDT by CHELSEA KIM OPERATOR COATING FURNACE Intake Systolic Blood Pressure : 130 mmHg Diastolic Blood Pressure : 82 mmHg NIBP Mean : 98 mmHg BP Location : Left upper extremity Blood Pressure Cuff Size : Regular (Comment: BP protoccal reviewed [CHELSEA KIM [facility] - 07/13/2013 15:50 CDT] ) Actual Weight : 61.5 kg(Converted to: 135 lb 9 oz) Weight Source : Standing scale Dosing Weight Clinic : 61.5 kg CHELSEA KIM [facility] - 07/13/2013 15:50 CDT General Info Information Given By : Patient Languages : Bengali CHELSEA KIM [facility] - 07/13/2013 15:50 CDT Subjective Pain Symptoms : No CHELSEA KIM [facility] - 07/13/2013 15:50 CDT Dependent Habits Tobacco Use/Currently Using : No Smoking Status : Never smoker CHELSEA KIM [facility] - 07/13/2013 15:50 CDT Tobacco Use Grid Last Use : never CHELSEA KIM [facility] - 07/13/2013 15:50 CDT Caffeine Use Grid Caffeine Use : Current Type : Soft drinks Frequency : Weekly Amount : 3 cans per week CHELSEA KIM [facility] - 07/13/2013 15:50 CDT Recreational Drug Use Grid Drug Use : None CHELSEA KIM [facility] - 07/13/2013 15:50 CDT [facility] Document Id: [id number] CDT!30 documented in this encounter Plan of Treatment Not on filedocumented as of this encounter Visit Diagnoses Not on filedocumented in this encounter
--- OUTSIDE RECORDS SUMMARY | 2021-12-10 15:39 | XMS_ITS | Encounter Summary ---
:1980 Author Organization [facility] Address [address] [place] [address] Care Team Providers Name Role Phone Unavailable Primary Care Provider Unavailable Encounter Details Date Type Department Care Team Description 09/29/2012 Hospital Encounter HX [facility] LABCLINIC Carlos Vang M.D. 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 - 09/29/2012 12:00 AM CDT [id number] [employer] September 29, 2012 [id number] RE: Denice Arcos : 1980 To Whom It May Concern: I am writing this letter on behalf of Denice Arcos, date of 1980. I have known Denice since 2010 and I have been following her medical issues. She has had a history of diagnosed ADHD from the past and currently is on Ritalin 10 mg tablet twice a day. Denice uses this medication on an as needed basis. The symptoms are currently very well-controlled on the above mentioned medication. She has been ableto handle her symptoms well and sometimes does not need the medication for the management. I believeshalley would be able to handle herself well without taking the medication if situations arise. She has been using this medication appropriately, has not abused it, and I do not have any concerns regarding the usage of the medication. If you have further questions, please feel free to contact us at . Sincerely, Isabell OrrB.S. Department of Family Medicine at [facility] FAX Electronically Signed By: CARLOS VANG MD On: 10/15/2012 05:44 PM Source: [facility] MHSDOLBEYNONRADSYS Document Id: [id number] documented in this encounter Plan of Treatment Not on filedocumented as of this encounter Procedures Procedure Name Priority Date/Time Associated Comments Diagnosis DIPSTICK, U Routine 09/29/2012 7:30 AM Results f or this CDT procedure are i n the results section. LIPID PANEL, S Routine 09/29/2012 7:17 AM Results for this CDT procedure are i n the results section. CBC WITHOUT Routine 09/29/2012 7:17 AM Results f or this DIFFERENTIAL, B CDT procedure ar e in the results section. COMPREHENSIVE Routine 09/29/2012 7:17 AM Results for this METABOLIC PANEL, S/P CDT procedu re are in the results section. documented in this encounter Results Dipstick, Urine (09/29/2012 7:30 AM CDT) [facility] gist Method Time Signature Source Clean Void POWERCHART Urine HXUr Color Yellow POWERCHART Appearance Clear POWERCHART Specific 1.013 1.003 - POWERCHART [place], POCT, U 1.035 pH, POCT, Urine 7.0 5.0 - 9.0 POWERCHART Protein, Ur, Dip Negative Negative POWERCHART Glucose Negative Negative POWERCHART Ketones, QL(U) Negative Negative POWERCHART HXBILIRUBIN Negative Negative POWERCHART HXBLOOD Negative Negative POWERCHART Leukocyte Negative Negative POWERCHART Esterase HXNITRITE Negative Negative POWERCHART Urobilinogen Normal 1.0 MGDL POWERCHART Specimen (Source) Anatomical Collection Method Collection Time Re ceived Time Location / / Volume Laterality Urine 09/29/2012 7:30 AM CDT Carlos Vang M.D. LAB URINE ORDERABLES Performing Organization Address City/State/ZIP Code Phon e Number POWERCHART CBC without Differential (09/29/2012 7:17 AM CDT) P athologist Signature Leukocytes 5.9 3.4 - 10.5 POWERCHART X109L Erythrocytes 4.18 3.90 - 5.03 POWERCHART [id number] Hemoglobin 13.4 12.0 - 15.5 POWERCHART GDL Hematocrit 39.0 34.9 - 44.5 POWERCHART MCV 93.3 82.0 - 98.0 POWERCHART FL HX RDW 12.7 11.9 - 15.5 POWERCHART Platelet Count 160 150 - 450 POWERCHART X109L Specimen (Source) Anatomical Collection Method Collection Time Re ceived Time Location / / Volume Laterality Blood 09/29/2012 7:17 AM CDT Carlos Vang M.D. LAB BLOOD ADD-ON Performing Organization Address City/[facility]/ZIP Code Phon e Number POWERCHART Lipid Panel (09/29/2012 7:17 AM CDT) Analysis Performed At Patho logist Time Signature Cholesterol, Total 156 100 - 200 POWERCHART MGDL Triglycerides 69 30 - 150 POWERCHART MGDL HX HDL 72 MGDL POWERCHART Comment: < 35 mg/dL is considered a risk factor f or CHD >60 mg/dL is associated with reduced ris k for CHD. Per the National Cholesterol Education P rogram guidelines. CHD is Coronary Heart Disease. Calculated LDL 70.6 0.0 - 100.0 MGDL POWERCHA RT Comment: 0-100 mg/dL ?? Optimal 100-129 mg/dL ??Near Optimal 130-159 mg/dL ??Borderline High 160+ mg/dL ?? High Specimen (Source) Anatomical Collection Method Collection Time Re ceived Time Location / / Volume Laterality Blood 09/29/2012 7:17 AM CDT Carlos Vang M.D. LAB BLOOD ADD-ON Performing Organization Address City/State/ZIP Code Phon e Number POWERCHART CMP (Comprehensive Metabolic Panel) (09/29/2012 7:17 AM CDT) Patholo gist Method Time Signature Glucose, Fasting, S 82 70 - 99 POWERCHART MGDL BUN (Blood Urea 11.3 6.0 - POWERCHART Nitrogen), S 21.0 MGDL Creatinine, S 0.7 0.5 - 1.2 POWERCHART MGDL HXeGFR (MDRD) >60 MLMIN POWERCHART eGFR Black/ >60 MLMIN POWERCHART Samoan Sodium, S 145 136 - 148 POWERCHART MML Potassium, S 4.1 3.5 - 5.0 POWERCHART MML Chloride, S 108 100 - 111 POWERCHART MMOLL CO2 Total 26 21 - 32 POWERCHART MMOLL Anion Gap 15 10 - 20 POWERCHART MMOLL Albumin, S 4.2 3.5 - 5.0 POWERCHART GDL Alanine 28 10 - 43 POWERCHART Amniotransferase, LD INTUL Aspartate 28 15 - 46 POWERCHART Aminotransferase INTUL (AST), S Alkaline 44 38 - 126 POWERCHART Phosphatase, S INTUL Bilirubin, Total, S 0.52 0.10 - POWERCHART 1.00 MGDL Total Protein, S 6.9 6.3 - 8.2 POWERCHART GMDL Calcium, Total, S 9.0 8.4 - POWERCHART 10.4 MGDL Comment: Falsely lowered Calcium results have been associated with gadolinium contrast in MRI scans. If this is a poss ibility, contact lab for alternatives Specimen (Source) Anatomical Collection Method Collection Time Re ceived Time Location / / Volume Laterality Blood 09/29/2012 7:17 AM CDT Carlos Vang M.D. LAB BLOOD ADD-ON Performing Organization Address City/State/ZIP Code Phon e Number POWERCHART documented in this encounter Visit Diagnoses Not on filedocumented in this encounter
--- OUTSIDE RECORDS SUMMARY | 2021-12-10 15:39 | XMS_ITS | Encounter Summary ---
:1980 Author Organization [facility] Address [address] [place] [address] Care Team Providers Name Role Phone Unavailable Primary Care Provider Unavailable Encounter Details Date Type Department Care Team Description 01/23/2013 Hospital Encounter HX [facility] Jesse Edmonds, D.P.M. 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 documented as of this encounter Progress Notes Fidel Edmonds, D.P.M. - 01/23/2013 9:21 AM CDT [id number] HISTORY OF PRESENT ILLNESS Patient and her present to clinic to follow up Urgent Care visit this morning. She presentedto [facility] with the chief complaint of pain of the left fourth digit. She reported the injury occurred in the middle of the night when she got up to use the restroom, as she was walking she struck the leg of the bed, had immediate pain. She states that the toe actually was pointed in oblique angle laterally. She did attempt to reduce back into a normal position. Has had continuous pain since that time. Presented to Urgent Care, radiographs identified a fracture of the fourth proximal phalanx which is displaced, and she presents to Podiatry clinic on consult for this. Past medical/surgical history, current medication, allergies, social history, family history reviewed from the EMR, no changes noted. PHYSICAL EXAMINATION Examination left, DP and PT 2/4. CFT is 2+ seconds. The fourth digit is still somewhat at a slightlyoblique angle laterally. She has quite a bit of pain with this. Review of radiographs reveals a displaced fracture. As best as it can be identified it appears that the digit has displaced laterally and proximally. IMPRESSION/REPORT/PLAN Displaced fracture, left fourth digit. PLAN: Discussed with patient and her treatment options. One would be to immobilize and see how the healing goes versus attempt at closed reduction. We discussed the benefits, advantages and disadvantages of the options. She did opt for closed reduction. After receiving verbal consent the digitwas anesthetized using 3 mL 0.5% Marcaine plain. Patient was transferred to the Radiology area utilizing fluoroscopy. Attempt was made to reduce into anatomical position and I was able to reduce into acorrected sagittal plane but I was not able to fully reduce the fracture distally. Discussed with patient results of attempt at closed reduction, choices are to leave in this anatomical position and cast with modification to protect the area and re-x-ray times 1 week, or discuss open reduction internal fixation. After discussion of benefits and advantages and disadvantages, she has opted to remain without attempt at open reduction at this time. We will cast her with modification at the distal aspect to encompass the digits to reduce movement. I will follow up in 1 week for re-x-ray with cast off. I did give her a prescription for Lortab 5 mg #24, 1 by mouth every 4-6 hours as needed for pain. She currently is using ibuprofen at home. Will begin her on a 600 mg 3 times a day course for the next 7-10 days; thereafter as needed. RICE protocol instructions given and patient will be seen in followup in 1 week. Danilo Edmonds D.P.M./reji Electronically Signed By: FIDEL EDMONDS DPM On: 01/25/2013 04:43 PM Source: [facility] MHSDOLBEYNONRADSYS Document Id: [id number] documented in this encounter Procedure Notes Conversion, Historical Provider Ser - 01/23/2013 10:40 AM CDT Cast Application Cast Application Entered On: 01/23/2013 10:41 CDT Performed On: 01/23/2013 10:40 CDT by HOMERO VANN Cast Application Site Assessment Pre-casting : No abnormalities Casting Material : Fiberglass Skin Protection Activities : Cotton under-cast padding, Site cleansed/dried, [place] Type of Cast : Short leg Extremity Side-Orthopedic Device : Left Post Cast Activity : Cast shoe applied Cast Application Patient Response : toes extended and compressed HOMERO VANN - 01/23/2013 10:40 CDT [facility] Document Id: [id number]!9 documented in this encounter Miscellaneous Notes Miscellaneous - Fidel Edmonds, D.P.M. - 01/23/2013 9:51 AM CDT Ambulatory Patient Summary [address] [address] Visit Information Name: JEANNINE OWENS [facility] Number: [id number] Current Date: 01/23/2013 09:51:25 Physicians Attending Provider: FIDEL EDMONDS DPM Primary Care Provider: YOBANY VANG MD Your Medications Here is a list of your medications. It is important to take your medications as directed. Use a pillbox or chart to help remind you to take your medications. Please let your doctor or nurse know if you have problems taking your medications. Medication/Strength Dose Route Frequency Indications/Special Instructions/Comments/Notes HYDROcodone-acetaminophen (Lortab 5/500 oral tablet) 1 tab(s) Oral every 4 hours as needed for Pain No more than 4,000mg acetaminophen/24hrs dextroamphetamine-amphetamine (Adderall XR 5 mg oral capsule, extended release) 5 mg Oral once a day(in the morning) multivitamin with minerals (multivitamin with minerals Multiple Vitamins with Zinc oral capsule) 1 cap(s) Oral once a day with magnesium methylphenidate (Ritalin 10 mg oral tablet) 10 mg Oral two times a day AM & Afternoon call [phone] when rx is ready ibuprofen (ibuprofen 200 [...] No Appointments found Your Goals/Additional instructions: Source: [facility] POWERCHART Document Id: [id number] Miscellaneous - Fidel Edmonds D.P.M. - 01/23/2013 9:51 AM CDT Ambulatory Depart Summary [address] [address] Visit Information Name: JEANNINE OWENS [facility] Number: [id number] Visit Date: 01/23/2013 09:51:24 Attending Provider: FIDEL EDMONDS DPM Primary Care Provider: YOBANY VANG MD JEANNINE OWENS has been given the following list of medications: Your Medications It is important to take your medications as directed. Use a pill box or chart to help remind you to take your medications. Please let your doctor or nurse know if you have problems taking your medications. Medication/Strength Dose Route Frequency Indications/Special Instructions/Comments/Notes HYDROcodone-acetaminophen (Lortab 5/500 oral tablet) 1 tab(s) Oral every 4 hours as needed for Pain No more than 4,000mg acetaminophen/24hrs dextroamphetamine-amphetamine (Adderall XR 5 mg oral capsule, extended release) 5 mg Oral once a day(in the morning) multivitamin with minerals (multivitamin with minerals Multiple Vitamins with Zinc oral capsule) 1 cap(s) Oral once a day with magnesium methylphenidate (Ritalin 10 mg oral tablet) 10 mg Oral two times a day AM & Afternoon call [phone] when rx is ready ibuprofen (ibuprofen 200 mg oral tablet) 400 mg Oral as needed as needed for Pain APAP/ASA/caffeine (Excedrin Migraine Geltab oral tablet) 2 tab(s) Oral every 6 hours Attention: If you have any medications at home that are not on this list, DO NOT take them until youcontact your provider for clarification. 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 Referred by Urgent Care. Fx of left foot. BP Location : Other: taken today in urgent care. HOMERO VANN - 01/23/2013 9:27 CDT General Info Information Given By : Patient Languages : Setswana HOMERO VANN - 01/23/2013 9:27 CDT Subjective Pain Symptoms : Yes HOMERO VANN - 01/23/2013 9:27 CDT Pain Pain Assessment Grid Pain 1 Location : Foot Laterality : Left Intensity : 8 HOMERO VANN - 01/23/2013 9:27 CDT Dependent Habits Tobacco Use/Currently Using : No Smoking Status : Never smoker HOMERO VANN - 01/23/2013 9:27 CDT Tobacco Use Grid Last Use : never HOMERO VANN - 01/23/2013 9:27 CDT Caffeine Use Grid Caffeine Use : Current Type : Soft drinks Frequency : Weekly Amount : 3 cans per week HOMERO VANN - 01/23/2013 9:27 CDT Recreational Drug Use Grid Drug Use : None HOMERO VANN R - 01/23/2013 9:27 CDT Source: [facility] SovexCHART Document Id: [id number] CDT!30 documented in this encounter Plan of Treatment Not on filedocumented as of this encounter Procedures Procedure Name Priority Date/Time Associated Diagnosis Comme nts FL FLUORO LESS THAN Routine 01/23/2013 10:33 AM R esults for this 1 HOUR CDT procedure are i n the results section. DX FOOT LEFT 2 Routine 01/23/2013 10:19 AM Result s for this VIEWS CDT procedure are i n the results section. documented in this encounter Results FL Fluoro Less Than 1 Hour (01/23/2013 10:33 AM CDT) Anatomical Region Laterality Modality Body Radiographic Imaging Specimen (Source) Anatomical Collection Method Collection Time Re ceived Time Location / / Volume Laterality 01/23/2013 10:33 AM CDT Impressions 02/16/2013 2:45 PM CDT 1. ??See above Narrative 02/16/2013 2:45 PM CDT EXAM: XR Foot Left 2 views, FL Fluorosco py less than 1 hour INDICATION: fx COMPARISON: 01/23/2013 FINDINGS: For procedure 17 seconds of fluoroscopy time was used. Closed reduction of the distal end proximal pha lanx fourth toe fracture. Procedure done by Dr. Edmonds. Procedure Note Eric Guzman M.D. - 09/11/2016Formatt ing of this note might be different from the original. EXAM: XR Foot Left 2 views, FL Fluorosco py less than 1 hour INDICATION: fx COMPARISON: 01/23/2013 FINDINGS: For procedure 17 seconds of fluoroscopy time was used. Closed reduction of the distal end proximal pha lanx fourth toe fracture. Procedure done by Dr. Edmonds. IMPRESSION: 1. See above Antonio Garrison(R) IMG FLUOROSCOPY PROCEDURES DX Foot Left 2 Views (01/23/2013 10:19 AM CDT) Anatomical Region Laterality Modality Lower Extremity, Foot Left Radiographic Imagi ng Specimen (Source) Anatomical Collection Method Collection Time Re ceived Time Location / / Volume Laterality 01/23/2013 10:19 AM CDT Impressions 02/16/2013 2:45 PM CDT 1. ??See above Narrative 02/16/2013 2:45 PM CDT EXAM: XR Foot Left 2 views, FL Fluorosco py less than 1 hour INDICATION: fx COMPARISON: 01/23/2013 FINDINGS: For procedure 17 seconds of fluoroscopy time was used. Closed reduction of the distal end proximal pha lanx fourth toe fracture. Procedure done by Dr. Edmonds. Procedure Note Eric Guzman M.D. / Provider, Jones ann M.D. - 09/11/2016 EXAM: XR Foot Left 2 views, FL Fluorosco py less than 1 hour INDICATION: fx COMPARISON: 01/23/2013 FINDINGS: For procedure 17 seconds of fluoroscopy time was used. Closed reduction of the distal end proximal pha lanx fourth toe fracture. Procedure done by Dr. Edmonds. IMPRESSION: 1. See above Antonio Garrison(Jesse) [facility] DIAGNOSTIC IMAGING PROC EDURES documented in this encounter Visit Diagnoses Not on filedocumented in this encounter
--- OUTSIDE RECORDS SUMMARY | 2021-12-10 15:39 | XMS_ITS | Encounter Summary ---
:1980 Author Organization [facility] Address [address] [place] [address] Care Team Providers Name Role Phone Unavailable Primary Care Provider Unavailable Encounter Details Date Type Department Care Team Description 02/24/2013 Hospital Encounter HX [facility] Carlos Nolan M.D. 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 documented as of this encounter Procedure Notes Yolis Lopez R.N. - 02/24/2013 4:36 PM CDT PPD Reading PPD Reading Entered On: 02/24/2013 16:37 CDT Performed On: 02/24/2013 16:36 CDT by YOLIS LOPEZ RN PPD Reading MM of Induration : 0 mm PPD Interpretation : Negative PPD Placed On : Left inner forearm PPD Date/Time Administered : 02/22/2013 16:52 CDT YOLIS LOPEZ RN - 02/24/2013 16:36 CDT Source: [facility] POWERCHART Document Id: [id number] CDT!6 documented in this encounter Plan of Treatment Not on filedocumented as of this encounter Procedures Procedure Name Priority Date/Time Associated Diagnosis Comme nts HX TB SKIN TEST-LAB Routine 02/24/2013 4:36 PM Re sults for this CDT procedure are i n the results section. documented in this encounter Results HX TB SKIN TEST-LAB (02/24/2013 4:36 PM CDT) P athologist Signature TB Skin Test 0 MM POWERCHART TB Skin Test Negative POWERCHART Specimen (Source) Anatomical Collection Method Collection Time Re ceived Time Location / / Volume Laterality 02/24/2013 4:36 PM CDT Carlos Nolan M.D. LAB HISTORICAL ORDERS Performing Organization Address City/State/ZIP Code Phon e Number POWERCHART documented in this encounter Visit Diagnoses Not on filedocumented in this encounter
--- OUTSIDE RECORDS SUMMARY | 2021-12-10 15:39 | XMS_ITS | Encounter Summary ---
:1980 Author Organization [facility] Address [address] [place] [address] Care Team Providers Name Role Phone Unavailable Primary Care Provider Unavailable Encounter Details Date Type Department Care Team Description 05/11/2012 Hospital Encounter HX [facility] FAMILYPRA Carlos Vang M.D. 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 - 05/11/2012 3:40 PM CST [id number] CHIEF COMPLAINT/REASON FOR VISIT Followup for ADHD. Subconjunctival hemorrhage left eye. HISTORY OF PRESENT ILLNESS Denice comes in today to talk about above mentioned problem. The patient currently has been takingAdderall 10 mg capsule once a day. She currently says that she feels the medicine wear off and also has tried taking it twice a day in the past. She notices up and down off the medication and currentlysays that she wishes to undergo an extended release form of the medication. She denies any side effects of the medication though. She is also here to talk about a small amount of bleed on the left side of the eye within the white portion. The patient says she woke up a couple of days ago with this. She does not recall doing anything traumatic. She does not recall doing any sneezing or severe coughing. The patient currently is also not on any form of medication pertaining to high blood pressure or any blood thinners. PAST MEDICAL/SURGICAL HISTORY Reviewed. CURRENT MEDICATIONS Reviewed. ALLERGIES Reviewed. SOCIAL HISTORY Reviewed. FAMILY HISTORY Reviewed. SYSTEMS REVIEW As above; all other systems reviewed and negative. PHYSICAL EXAMINATION VITAL SIGNS: Reviewed. GENERAL: Alert, awake and oriented times 3. HEENT: Left eye was examined and compared to the right eye. There is subconjunctival hemorrhage noted on the lateral aspect. Vision was completely normal, peripheral as well as accommodation and right reflex was normal. NEUROLOGIC: Cranial nerves 2 through 12 are normal. No sensory or motor deficits noted. Power is 5 over 5 in all extremities. Gait not compromised. IMPRESSION/REPORT/PLAN 1. ADHD. Currently the patient seems to be willing to undergo a change to extended release medication, Adderall XR 10 mg capsule once a day has been suggested. The patient will let me know in a month from now to see if she needs further management. Side effects of the medication were discussed with the patient. 2. Subconjunctival hemorrhage. We did talk about pathophysiology of the disease. Her neurologic examination looks completely normal today. No further workup has been suggested. I did reassure her that this kind of symptoms get better by themselves over time. The patient is agreeable to the plan. Return parameters including changes in vision, weakness of the extremities, gait abnormalities or slurred speech were discussed with the patient at which point I have suggested that she come to the emergencyroom immediately. Vinod Orr/jesus Electronically Signed By: CARLOS VANG MD On: 05/18/2012 07:31 PM Source: [facility] MHSDOLBEYNONRADSYS Document Id: [id number] EDGER documented in this encounter Nursing Notes Igor Coronado L.P.N. - 07/11/2012 2:55 PM CDT Patient contacted and notified that her prescription was ready to be picked up on the fourth floor of the clinic. Electronically Signed By: IGOR CORONADO On: 07/11/2012 02:56 PM [facility] Document Id: [id number] documented in this encounter Miscellaneous Notes Miscellaneous - Martita Jarrett R.N. - 06/06/2012 10:26 AM CST General Message Document Contains Addenda Addendum by JENN LR LPN on 10 June 2012 9:42 HAND EDGER patient was called. written Rx will be on 4th floor, desk monitor. From: MARTITA JARRETT ([facility] Nurse) To: CARLOS VANG MD; Sent: 06/06/2012 10:26:15 HAND EDGER Subject: General Message Returned patient's voicemail. She is currently taking Adderall XR 10mg daily. She states she feels the effects of the medication, but does not feel it's beneficial, and her head has a cloudy feeling. She is requesting to switch back to Adderall Immediate Release; 5mg twice daily. Last visit with Dr. Vang was 05/11/2012. Phone is [phone] Source: [facility] Document Id: [id number] Electronically signed by Zac [facility] Senior Director Of [employer] [id number] at 09/23/2016 10:18 PM CDT Miscellaneous - Carlos Vang M.D. - 05/11/2012 4:33 PM CST Ambulatory Patient Summary [address] [place] [address] Visit Information Name: DENICE OWENS [facility] Number: [id number] Current Date: 05/11/2012 16:33:53 Physicians Attending Provider: CARLOS VANG MD Primary [...] Dose Route Frequency Indications/Special Instructions/Comments dextroamphetamine-amphetamine (Adderall XR 10 mg oral capsule, [...] Upcoming Appointments Date Time Location Reason Provider 06/13/2012 09:15 AL[facility] Cardiology mar 2012 month viktoria Joy MD, [facility] Your Goals/Additional instructions: Source: [facility] POWERCHART Document Id: [id number] EDGER Miscellaneous - Carlos Vang M.D. - 05/11/2012 4:33 PM CST Ambulatory Depart Summary [place] [place] [address] Visit Information Name: DENICE OWENS [facility] Number: [id number] Visit Date: 05/11/2012 16:33:52 Attending Provider: CARLOS VANG MD Primary Care Provider: CARLOS VANG MD DENICE OWENS SHAQ has been given the following list of medications: Your Medications It is important to take your medications as directed. Use a pill box or chart to help remind you to take your medications. Please let your doctor or nurse know if you have problems taking your medications. Medication/Strength Dose Route Frequency Indications/Special Instructions/Comments dextroamphetamine-amphetamine (Adderall XR 10 mg oral capsule, extended release) 10 mg Oral once a day (in the morning) Attention: If you have any medications at home that are not on this list, DO NOT take them until youcontact your provider for clarification. Additional Information: Source: [facility] Document Id: [id number] EDGER Miscellaneous - Conversion, Historical Provider Ser - 05/11/2012 3:55 PM HAND EDGER PHQ-9 PHQ-9 Entered On: 05/11/2012 15:55 HAND EDGER Performed On: 05/11/2012 15:55 HAND EDGER by JENN LR LPN PHQ-9 Little interest or pleasure in [...] at all PHQ-9 Calculated Score : 0 JENN LR LPN - 05/11/2012 15:55 HAND EDGER [facility] Document Id: [id number] Miscellaneous - Conversion, Historical Provider Ser - 05/11/2012 3:55 PM HAND EDGER Quality Measures Quality Measures Entered On: 05/11/2012 15:55 HAND EDGER Performed On: 05/11/2012 15:55 HAND EDGER by JENN LR LPN Depression PHQ-9 Score : 0 JENN LR LPN - 05/11/2012 15:55 HAND EDGER Source: [facility] POWERCHART Document Id: [id number] Miscellaneous - Conversion, Historical Provider Ser - 05/11/2012 3:48 PM HAND EDGER Adult Ware Tester Intake/History Adult Ware Tester Intake/History Entered On: 05/11/2012 15:50 HAND EDGER Performed On: 05/11/2012 15:48 HAND EDGER by JENN LR LPN Intake Chief Complaint : med refills, red left eye Temperature Core : 36.6C(Converted to: 97.9DegF) Peripheral Pulse Rate : 80/min Systolic Blood Pressure : 122mmHg Diastolic Blood Pressure : 78mmHg NIBP Mean : 93mmHg BP Location : Right upper extremity Blood Pressure Cuff Size : Regular Actual Weight : 60.5kg(Converted to: 133lb 6oz) Dosing Weight Clinic : 60.50kg JENN LR LPN - 05/11/2012 15:48 HAND EDGER Subjective Pain Symptoms : No JENN LR LPN - 05/11/2012 15:48 HAND EDGER Dependent Habits Tobacco Use/Currently Using : No Smoking Status : Never smoker JENN LR LPN - 05/11/2012 15:48 HAND EDGER Tobacco Use Grid Last Use : never JENN LR LPN - 05/11/2012 15:48 HAND EDGER Caffeine Use Grid Caffeine Use : Current Type : Soft drinks Frequency : Daily JENN LR LPN - 05/11/2012 15:48 HAND EDGER Recreational Drug Use Grid Drug Use : None JENN LR LPN 05/11/2012 15:48 HAND EDGER Allergy Allergies (Active) NKA Estimated Onset Date: Unspecified ; Created By: BRITTANY WALTON; Reaction Status: Active ; Category: Drug ; Substance: NKA ; Type: Allergy ; Updated By: BRITTANY WALTON; Reviewed Date: 05/11/2012 15:47 HAND EDGER Source: [facility] POWERCHART Document Id: [id number] documented in this encounter Plan of Treatment Not on filedocumented as of this encounter Visit Diagnoses Not on filedocumented in this encounter
--- OUTSIDE RECORDS SUMMARY | 2021-12-10 15:39 | XMS_ITS | Encounter Summary ---
:1980 Author Organization [facility] Address [address] [place] [address] Care Team Providers Name Role Phone Unavailable Primary Care Provider Unavailable Encounter Details Date Type Department Care Team Description 02/22/2013 Hospital Encounter HX [facility]ILY[facility] Carlos Nolan M.D. 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 documented as of this encounter Plan of Treatment Not on filedocumented as of this encounter Visit Diagnoses Not on filedocumented in this encounter
--- OUTSIDE RECORDS SUMMARY | 2021-12-10 15:39 | XMS_ITS | Encounter Summary ---
:1980 Author Organization [facility] Address [address] [place] [address] Care Team Providers Name Role Phone Unavailable Primary Care Provider Unavailable Encounter Details Date Type Department Care Team Description 10/20/2013 Hospital Encounter [facility]X [facility] Carlos Vang M.D. 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 documented as of this encounter Miscellaneous Notes Miscellaneous - Carlos Vang M.D. - 10/20/2013 1:00 PM CDT Results Notification Document Contains Addenda Addendum by YANA LOPEZ RN on 25 October 2013 11:03:52 CDT Patient called back and is advised of recommendations. Addendum by MAAME GRIMALDO LPN on 25 October 2013 09:49:57 CDT Left message for patient to call back. From: CARLOS VANG MD To: PEGGY Vang Nurse; Sent: 10/20/2013 13:00:36 CDT Show up: 10/20/2013 13:00:00 CDT Subject: Results Notification Could you inform Denice reyt her MRI of the brain has come back normal. No lesions or masses noted. Adalgisa sylvester Results: Date Result Type Result Name 10/20/2013 12:34 Radiology MR Brain w/ + w/o contrast Source: [facility] [employer] Document Id: [id number] Electronically signed by [facility] Pattern Developer [id number] at 09/22/2016 3:11 AM CDT Miscellaneous - Maame Grimaldo L.P.N. - 10/18/2013 2:36 PM CDT General Message Document Contains Addenda Addendum by MAAME GRIAMLDO LPN on 18 October 2013 15:37:32 CDT Patient returns call and number adjusted and letter sent back to [employer]. From: MAAME GRIMALDO LPN (PEGGY Vang Nurse) To: PEGGY Vang Nurse; Sent: 10/18/2013 14:36:00 CDT Subject: General Message Left message for patient to call back. JOSE has been trying to fax letter to [employer] regarding patients dx of ADHD and number we have for fax isn't working. Wondering if she has another number. Letter is at my desk in red folder. Source: [facility] [employer] Document Id: [id number] Electronically signed by Zac, [facility] Pattern Developer [id number] at 09/22/2016 3:11 AM CDT documented in this encounter Plan of Treatment Not on filedocumented as of this encounter Procedures Procedure Name Priority Date/Time Associated Diagnosis Comme nts MR BRAIN WITHOUT Routine 10/20/2013 10:45 AM Resu lts for this AND WITH IV CDT procedure are i n CONTRAST the results section. documented in this encounter Results MR Brain without and with IV Contrast (10/20/2013 10:45 AM CDT) Anatomical Region Laterality Modality Head, Brain N/A Magnetic Resonance Specimen (Source) Anatomical Collection Method Collection Time Re ceived Time Location / / Volume Laterality 10/20/2013 10:45 AM CDT Impressions 10/20/2013 12:31 PM CDT 1. ??No mass, mass effect or hemorrhage 2. No enhancing lesion demonstrated Narrative 10/20/2013 12:31 PM CDT EXAM: MR Brain w/ + w/o contrast INDICATION: worsening headache, blurred vision COMPARISON: None FINDINGS: MRI the brain was done in coronal, sagit sebas and axial projections before and after millimeters of intraven ous Omniscan utilizing conventional protocols. Diffusion series show no focal region of restricted diffusion. No mass or mass ef fect is seen. No midline shift is seen. Ventricular system and rainey lci are uneffaced. Solitario-white matter interface is maintained with no f ocal region of abnormal signal intensity. Include orbits and sin uses are within normal limits. Following gadolinium ministratio n there is no enhancing lesion demonstrated. Procedure Note AlyssaYo spencer M.D. / ProviderJones M.D. - 09/04/2016 EXAM: MR Brain w/ + w/o contrast INDICATION: worsening headache, blurred vision COMPARISON: None FINDINGS: MRI the brain was done in coronal, sagit sebas and axial projections before and after millimeters of intraven ous Omniscan utilizing conventional protocols. Diffusion series show no focal region of restricted diffusion. No mass or mass ef fect is seen. No midline shift is seen. Ventricular system and rainey lci are uneffaced. Solitario-white matter interface is maintained with no f ocal region of abnormal signal intensity. Include orbits and sin uses are within normal limits. Following gadolinium ministratio n there is no enhancing lesion demonstrated. IMPRESSION: 1. No mass, mass effect or hemorrhage 2. No enhancing lesion demonstrated Antonio Garrison(Jesse) IMPerfecto MRI PROCEDURES documented in this encounter Visit Diagnoses Not on filedocumented in this encounter
--- OUTSIDE RECORDS SUMMARY | 2021-12-10 15:40 | XMS_ITS | Encounter Summary ---
:1980 Author Organization [facility] Address [address] [place] [address] Care Team Providers Name Role Phone Unavailable Primary Care Provider Unavailable Encounter Details Date Type Department Care Team Description 01/21/2011 Hospital Encounter HX [facility] MRI Gustavo Johnson M.D. 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 - 07/02/2011 3:19 PM CST General Message Document Contains Addenda Addendum by HANSA PARKINSON on 03 July 2011 18:28:49 LITERACY EDUCATION PROFESSOR Pt notified that note will be faxed. She states understanding. Addendum by HANSA PARKINSON on 03 July 2011 18:24:41 LITERACY EDUCATION PROFESSOR Left message to return call at [phone] Addendum by CARLOS VANG MD on 03 July 2011 17:33:47 LITERACY EDUCATION PROFESSOR From: CARLOS VANG MD To: PEGGY [facility] Triage Nurse; Sent: 07/03/2011 17:33:47 LITERACY EDUCATION PROFESSOR Subject: RE: General Message Please let her know that the note will be faxed. Thank You Carlos Addendum by YOLIS LOPEZ RN on 02 July 2011 16:23:21 LITERACY EDUCATION PROFESSOR From: YOLIS LOPEZ RN ([facility] Triage Nurse) To: CARLOS VANG MD; Sent: 07/02/2011 16:23:21 LITERACY EDUCATION PROFESSOR Subject: FW: General Message Addendum by YOLIS LOPEZ RN on 02 July 2011 16:23:12 LITERACY EDUCATION PROFESSOR Patient called back. She works for a [employer] and they are currently doing fitness testing. She is requesting a note to be faxed to [phone] stating she is restricted from this activity until diagnosis has been confirmed. She wanted you to know she is having all of the same symptoms as yesterday and maybe a little worse. Heart rate consistantly running high in the 150s today. C/O bad headache L side of head, slight SOB and her body feels heavy with walking. She took Lorazepam andfeels it maybe helped a little. She can be reached at [phone] with further questions or recommendations. Addendum by YOLIS LOPEZ RN on 02 July 2011 16:13:23 LITERACY EDUCATION PROFESSOR Voice mail left asking for return call. Addendum by CARLOS VANG MD on 02 July 2011 15:33:08 LITERACY EDUCATION PROFESSOR I have called her and left a message to call back. Carlos Addendum by YOLIS LOPEZ RN on 02 July 2011 15:22:49 LITERACY EDUCATION PROFESSOR From: YOLIS LOPEZ RN ([facility] Triage Nurse) To: [facility] Triage Nurse; Sent: 07/02/2011 15:22:49 LITERACY EDUCATION PROFESSOR Subject: FW: General Message Addendum by YOLIS LOPEZ RN on 02 July 2011 15:22:13 LITERACY EDUCATION PROFESSOR From: YOILS LOPEZ RN ([facility] Triage Nurse) To: CARLOS VANG MD; Sent: 07/02/2011 15:22:13 LITERACY EDUCATION PROFESSOR Subject: FW: General Message Message sent back to triage to get more information. From: YOLIS LOPEZ RN ([facility] Triage Nurse) To: CARLOS VANG MD; Sent: 07/02/2011 15:19:02 LITERACY EDUCATION PROFESSOR Subject: General Message Voice mail left stating she had some questions and concerns from visit this am. She needs documentation for work. Left message at [phone] to return call for more information. Source: [facility] POWERCHART Document Id: [id number] Electronically signed by Conversion, [facility] Veterinary Practice Manager [id number] at 09/27/2016 2:54 PM CDT documented in this encounter Plan of Treatment Not on filedocumented as of this encounter Procedures Procedure Name Priority Date/Time Associated Diagnosis Comme nts MR KNEE RIGHT Routine 01/21/2011 8:28 AM Results for this WITHOUT IV CONTRAST CDT procedur e are in the results section. documented in this encounter Results MR Knee Right without IV Contrast (01/21/2011 8:28 AM CDT) Anatomical Region Laterality Modality Lower Extremity, Knee Right Magnetic Resonance Specimen (Source) Anatomical Collection Method Collection Time Re ceived Time Location / / Volume Laterality 01/21/2011 8:28 AM CDT Narrative 01/21/2011 9:14 AM CDT Indication: Fracture proximal fibula fol lowup ?? Right knee MRI without contrast. ?? Comparison to November 10, 2010 ?? Again seen is the horizontal low signal linear area of the proximal fibula on the T1 sequence which is brigh ter signal on the T2 sequence. Signal intensity is slightly less than p revious exam of November 10, 2010. No adjacent bone marrow edema. No displa cement. Normal amount of fluid in the knee joint. No meniscal tear. The cruciate ligaments are intact. The quadriceps and patellar tend ons are normal. The collateral ligaments are normal. ?? Impression: Stable position of healing u ndisplaced proximal fibular fracture Procedure Note Provider, Shakila Villagran - 09/17/2016F ormatting of this note might be different from the original. Indication: Fracture proximal fibula fol lowup Right knee MRI without contrast. Comparison to November 10, 2010 Again seen is the horizontal low signal linear area of the proximal fibula on the T1 sequence which is brigh ter signal on the T2 sequence. Signal intensity is slightly less than p revious exam of November 10, 2010. No adjacent bone marrow edema. No displa cement. Normal amount of fluid in the knee joint. No meniscal tear. The cruciate ligaments are intact. The quadriceps and patellar tend ons are normal. The collateral ligaments are normal. Impression: Stable position of healing u ndisplaced proximal fibular fracture Lexi Garrison(R)(CT), RCinthiaTCinthia(R) IMG MRI PROCEDUR ES documented in this encounter Visit Diagnoses Not on filedocumented in this encounter
--- OUTSIDE RECORDS SUMMARY | 2021-12-10 15:40 | XMS_ITS | Encounter Summary ---
:1980 Author Organization [facility] Address [address] [place] [address] Care Team Providers Name Role Phone Unavailable Primary Care Provider Unavailable Encounter Details Date Type Department Care Team Description 01/14/2011 Hospital Encounter HX [facility] ORTHO Valentine Woodson M.D. 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 - 01/14/2011 12:00 AM CDT [id number] Denice is in for followup of her right knee. Dr. Gaspar had seen her three weeks ago and recommended casting for six weeks. She had the cast removed up in the [facility] three weeks ago. She feels like she is improving. She has no longer had any of the massive bruising that she had. She still remains with a small chronic bruise right over the fibular head. On exam there is some firm swelling here, it almost has the feel of heterotopic ossification. Ligamentous testing is unremarkable. She has full range of motion of her knee. Still slightly tender over the fibular head. I obtained x-rays which were negative. Discussed with her I think that this is most likely a fracture and because of the lateral collateral insertion into an area when she stands it just keeps it aggravated. We are going to continue with a hinged knee brace. She will work on range of motion and I am anticipating resolution of her symptoms. If not I would be happy to see her again. She seemed pleased with this approach. 15 minutes, almost all of which was discussion. David Woodson M.D./brian Electronically Signed By: DAVID WOODSON MD On: 01/27/2011 04:58 PM Source: [facility] MHSDOLBEYNONRADSYS Document Id: [id number] documented in this encounter Miscellaneous Notes Miscellaneous - Denice Farr RJennifer. - 01/14/2011 3:45 PM CDT General Message Document Contains Addenda Addendum by DENICE FARR RN on 16 January 2011 13:42:22 CDT This has been mailed. Addendum by DENICE FARR RN on 16 January 2011 08:47:58 CDT Will do. patient advised and voices understanding. Addendum by CHITO BETTS PA-C on 16 January 2011 08:35:53 CDT From: CHITO BETTS PA-C To: [facility]/PM&R/Neuro Triage Nurse; Sent: 01/16/2011 08:35:53 CDT Subject: RE: General Message she should not be participating in those activites. please write note and place on my desk to sign From: DENICE FARR RN ([facility]/PM&R/Neuro Triage Nurse) To: FRANCOIS SHELL; Sent: 01/14/2011 15:45:32 CDT Subject: General Message patient calls stating she had seen Dr. Woodson today for a proximal tibial stress fx in the right legand was given a brace to wear. patient is in the and is wondering if she can still perform biking, running, etc and if she can have a note stating this for the . Please advise. Will call # [phone]. Source: [facility] POWERCHART Document Id: [id number] Miscellaneous - David Woodson M.D. - 01/14/2011 3:29 PM CDT Ambulatory Patient Summary [place] - [address] [place] [address] Visit Information Name: DENICE OWENS Current Date: 01/14/2011 15:29:18 Primary Care Provider: ROYA BLACK MD Your Medications Here is a list of your medications. It is important to take your medications as directed. Use a pillbox or chart to help remind you to take your medications. Please let your doctor or nurse know if you have problems taking your medications. Medication/Strength Dose Route Frequency Indications/Special Instructions/Comments tramadol (tramadol 50 mg oral tablet) 50 mg Oral every 4 hours as needed for pain tramadol (tramadol 50 mg oral tablet) 100 mg Oral every 6 hours as needed for Pain predniSONE (predniSONE) 10 mg Oral once a day take 5 tabs daily for 3 days. then 4 tabs daily for 3 days followed by 3 tabs daily for 3 days. Then 2 tabs daily for 3 days and then 1 tab daily for 3 days.-- stop ondansetron (Zofran 4 mg oral tablet) 4 mg Oral every 8 hours as needed for Nausea Nausea acetaminophen-codeine (Tylenol with Codeine #3 oral tablet) 1 to 2 tablets Oral every 4 hours as needed for Pain pain / No more than 4,000mg acetaminophen/24hrs atenolol (atenolol 25 mg oral tablet) 25 mg Oral once a day Your Allergies & Intolerances Substance Reaction Symptoms Category Comments NKA Drug Your Problem List Problem Status Onset Comments Headache Migraine Resolved 2000 acute pyelonephritis Resolved 2010 delivery NOS Resolved 2001 section Resolved 1999 Appendectomy Resolved 1997 Bilateral tubal ligation Resolved 2008 Your Recommendations We want to make sure you get the tests, immunizations, and guidance you need to stay healthy. Here is a customized list of recommendations, based on information we have in your medical record. Your doctor may have additional recommendations for you, based on your personal medical history and risk factors. You can help us by calling us to make an appointment when you are due for your tests. Additional information regarding recommendations: Test/Treatment Last Done Next Due Additional Information Screening Pap Smear every 3 years Women 21-65 12/19/2010 01/18/2011 Checks for signs of cancer of the cervix. Lipid Panel every 5 years Age 20-75 12/19/2010 01/18/2011 Checks blood for good (HDL) and bad (LDL) cholesterol. Know your numbers, they are one indicator of your risk for heart attack and stroke. Vaccine: Tetanus every 10 years 12/19/2010 01/18/2011 Immunization to help prevent you from getting the serious disease Tetanus (Lockjaw). Your Upcoming Appointments Date Time Location Reason Provider No Appointments found Your Goals/Additional instructions: Source: [facility] POWERCHART Document Id: [id number] Miscellaneous - David Woodson M.D. - 01/14/2011 3:29 PM CDT Ambulatory Depart Summary [address] [address] Visit Information Name: DENICE OWENS Current Date: 01/14/2011 15:29:17 Primary Care Provider: ROYA BLACK MD DENICE OWENS has been given the following list of medications: Your Medications It is important to take your medications as directed. Use a pill box or chart to help remind you to take your medications. Please let your doctor or nurse know if you have problems taking your medications. Medication/Strength Dose Route Frequency Indications/Special Instructions/Comments tramadol (tramadol 50 mg oral tablet) 50 mg Oral every 4 hours as needed for pain tramadol (tramadol 50 mg oral tablet) 100 mg Oral every 6 hours as needed for Pain predniSONE (predniSONE) 10 mg Oral once a day take 5 tabs daily for 3 days. then 4 tabs daily for 3 days followed by 3 tabs daily for 3 days. Then 2 tabs daily for 3 days and then 1 tab daily for 3 days.-- stop ondansetron (Zofran 4 mg oral tablet) 4 mg Oral every 8 hours as needed for Nausea Nausea acetaminophen-codeine (Tylenol with Codeine #3 oral tablet) 1 to 2 tablets Oral every 4 hours as needed for Pain pain / No more than 4,000mg acetaminophen/24hrs atenolol (atenolol 25 mg oral tablet) 25 mg Oral once a day Additional Information: Yes - Current list of reconciled medications is provided and explained to the patient and/or family, guardian/caregiver. 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 Patient was having problems with the [place]. Pain has decreased rates 4/10 on and off with or without movement. BP Location: Other: B/P normal past 30 days MARCELA YOU - 01/14/2011 14:45 CDT Subjective Pain Symptoms: Yes MARCELA YOU - 01/14/2011 14:45 CDT Pain Pain Assessment Grid Pain 1 Location: Knee Laterality: Right Intensity: 4 Time Pattern: Intermittent MARCELA YOU - 01/14/2011 14:45 CDT Dependent Habits Tobacco Use/Currently Using: No MARCELA YOU - 01/14/2011 14:45 CDT Caffeine Use Grid Caffeine Use: Current Type: Soft drinks Frequency: Daily MARCELA YOU - 01/14/2011 14:45 CDT Recreational Drug Use Grid Drug Use: None WALTER YOUWendie Pressley - 01/14/2011 14:45 CDT Allergy Allergies (Active) NKA Estimated Onset Date: Unspecified ; Created By: BRITTANY WALTON; Reaction Status: Active ; Category: Drug ; Substance: NKA ; Type: Allergy ; Updated By: BRITTANY WALTON; Reviewed Date: 01/14/2011 14:44 CDT Source: [facility] Document Id: [id number] CDT!23 documented in this encounter Plan of Treatment Not on filedocumented as of this encounter Procedures Procedure Name Priority Date/Time Associated Diagnosis Comme nts DX KNEE RIGHT 3 Routine 01/14/2011 3:09 PM Result s for this VIEWS CDT procedure are i n the results section. documented in this encounter Results DX Knee Right 3 Views (01/14/2011 3:09 PM CDT) Anatomical Region Laterality Modality Lower Extremity, Knee Right Radiographic Imagi ng Specimen (Source) Anatomical Collection Method Collection Time Re ceived Time Location / / Volume Laterality 01/14/2011 3:09 PM CDT Narrative 01/27/2011 7:06 PM CDT Reason for study: Knee pain ?? Multiple views of the right knee are obt ained. No definitive fractures or dislocations are noted. ?? Impression: Negative right knee film Procedure Note David Woodson M.D. / Provider, Chun hernandez M.D. - 09/17/2016 Reason for study: Knee pain Multiple views of the right knee are obt ained. No definitive fractures or dislocations are noted. Impression: Negative right knee film Alice Garrison(R)(CT), R.TCinthia(R) IMG DIAGNOSTIC I MAGING PROCEDURES documented in this encounter Visit Diagnoses Not on filedocumented in this encounter
--- OUTSIDE RECORDS SUMMARY | 2021-12-10 15:40 | XMS_ITS | Encounter Summary ---
:1980 Author Organization [facility] Address [address] [place] [address] Care Team Providers Name Role Phone Unavailable Primary Care Provider Unavailable Encounter Details Date Type Department Care Team Description 02/04/2011 Hospital Encounter [facility] Valentine Prado M.D. 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 - 02/04/2011 12:00 AM CDT [id number] HISTORY OF PRESENT ILLNESS Jeannine is in for her repeat MRI of her right knee. Since I last saw her she has had no longer any further spontaneous bruising. She is feeling somewhat better. The MRI was compared to the one taken in October and there has been triple healing of the proximal fibular fracture, it is not completely healed but definitely less signal than previous. I do not see any other abnormalities on the MRI. I discussed this with her. I still think she should hold off on any aggressive activity until it is completely healed. I think that will take another 8 weeks. It is difficult for me to explain the spontaneous bruising. If that continues we may need to get a second opinion. She is not having this bruising anywhere so I do not think it is a systemic issue. 10 minutes, most of which was discussion. David Woodson M.D./sugar Electronically Signed By: DAVID WOODSON MD On: 02/10/2011 09:37 AM Source: [facility] MHSDOLBEYNONRADSYS Document Id: [id number] documented in this encounter Miscellaneous Notes Miscellaneous - Kevin Alegre P.A. - 02/04/2011 3:25 PM CDT Ambulatory Patient Summary [place] - [address] [place] [address] Visit Information Name: JEANNINE OWENS Current Date: 02/04/2011 15:25:23 Primary Care Provider: ROYA BLACK MD Your [...] No Appointments found Your Goals/Additional instructions: Source: [facility] POWERCHART Document Id: [id number] Miscellaneous - Kevin Alegre P.A. - 02/04/2011 3:25 PM CDT Ambulatory Depart Summary [address] [address] Visit Information Name: JEANNINE OWENS Current Date: 02/04/2011 15:25:21 Primary Care Provider: ROYA BLACK MD JEANNINE OWENS has been given the [...] to the patient and/or family, guardian/caregiver. 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/History Adult Manager Landscape Intake/History Entered On: 02/04/2011 15:00 CDT Performed On: 02/04/2011 14:58 CDT by ANNE RUDOLPH Intake Chief Complaint: Rt Knee MRI Results Systolic Blood Pressure: 110mmHg Diastolic Blood Pressure: 70mmHg NIBP Mean: 83mmHg BP Location: Right upper extremity (Comment: Large Cuff [ANNE RUDOLPH - 02/04/2011 14:58 CDT] ) ANNE RUDOLPH - 02/04/2011 14:58 CDT Subjective Pain Symptoms: No ANNE RUDOLPH - 02/04/2011 14:58 CDT Dependent Habits Tobacco Use/Currently Using: No ANNE RUDOLPH - 02/04/2011 14:58 CDT Caffeine Use Grid Caffeine Use: Current Type: Soft drinks Frequency: Daily ANNE RUDOLPH - 02/04/2011 14:58 CDT Recreational Drug Use Grid Drug Use: None ANNE RUDOLPH - 02/04/2011 14:58 CDT Allergy Allergies (Active) NKA Estimated Onset Date: Unspecified ; Created By: BRITTANY WALTON Reaction Status: Active ; Category: Drug ; Substance: NKA ; Type: Allergy ; Updated By: BRITTANY WALTON; Reviewed Date: 02/04/2011 14:58 CDT Source: [facility] [employer] Document Id: [id number] CDT!19 documented in this encounter Plan of Treatment Not on filedocumented as of this encounter Visit Diagnoses Not on filedocumented in this encounter
--- OUTSIDE RECORDS SUMMARY | 2021-12-10 15:40 | XMS_ITS | Encounter Summary ---
:1980 Author Organization [facility] Address [address] [place] [address] Care Team Providers Name Role Phone Unavailable Primary Care Provider Unavailable Encounter Details Date Type Department Care Team Description 11/10/2010 Hospital Encounter [facility]X [facility] MRI Gustavo Johnson M.D. 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 documented in this encounter Results MR Knee Right without IV Contrast (11/10/2010 3:55 PM CDT) Anatomical Region Laterality Modality Lower Extremity, Knee Right Magnetic Resonance Specimen (Source) Anatomical Collection Method Collection Time Re ceived Time Location / / Volume Laterality 11/10/2010 3:55 PM CDT Narrative 11/10/2010 4:53 PM CDT Right knee MRI ?? Indication: Pain ?? There is a horizontal low signal linear area of the proximal fibula on the T1 sequence which is bright signal o n the T2 sequence. No displacement. Normal amount of fluid in the knee joint. No meniscal tear. The cruciate ligaments are intact. The quadriceps and patellar tendons are normal. The collateral ligam ents are normal. Results were discussed the Dr. Gustavo Johnson M.D. ?? Impression: Undisplaced proximal fibular fracture Procedure Note Provider, Shakila Villagran - 09/17/2016F ormatting of this note might be different from the original. Right knee MRI Indication: Pain There is a horizontal low signal linear area of the proximal fibula on the T1 sequence which is bright signal o n the T2 sequence. No displacement. Normal amount of fluid in the knee joint. No meniscal tear. The cruciate ligaments are intact. The quadriceps and patellar tendons are normal. The collateral ligam ents are normal. Results were discussed the Dr. Gustavo Johnson M.D. Impression: Undisplaced proximal fibular fracture Elli Berman R.T.(R)(CT), R.T.(R) IMG MRI PROCEDURES documented in this encounter Visit Diagnoses Not on filedocumented in this encounter
--- OUTSIDE RECORDS SUMMARY | 2021-12-10 15:40 | XMS_ITS | Encounter Summary ---
:1980 Author Organization [facility] Address [address] [place] [address] Care Team Providers Name Role Phone Unavailable Primary Care Provider Unavailable Encounter Details Date Type Department Care Team Description 12/26/2010 Hospital Encounter [facility]X [facility]RGENTCAR Ev aNvarro M.D. 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 - 12/26/2010 12:00 AM CDT [id number] CHIEF COMPLAINT/REASON FOR VISIT Scalp irritation HISTORY OF PRESENT ILLNESS The patient had a hair replacement that was performed in the [facility] approximately 10-14 days ago. She was concerned about the pain and irritation and requested to have the sutures removed. However the patient had multiple sutures, well over 30 sutures. They were the same color as her hair itself. I am not familiar with the exact procedure that was performed with the hair transplant and advised that the patient would follow up with the plastic surgeon that performed this task fearing that I will miss numerous sutures or will frustrate the surgical repair. She has mentioned she has had difficulty finding transportation to have a follow up but in lieu of the fact that I would recommend that it is optimal to follow up with the plastic surgeon who knows her best. I advised of my discomfort about performing the procedure. I talked to Dr. Flowers and he recommends that she would find ways to follow up as well. Therefore, by evoking the Hippocratic Oath, I do not want to harm the current surgery that was performed. Unfortunately she has no fever, no purulent discharge that would indicate an infection or a complication of a serious medical emergency. Patient appeared to be disappointed but we did explain that any plastic surgery should be followed up by the surgeon themselves. Ev Navarro M.D./yi Electronically Signed By: EV NAVARRO On: 01/29/2011 09:34 AM Source: [facility] MHSDOLBEYNONRADSYS Document Id: [id number] documented in this encounter Miscellaneous Notes Miscellaneous - Lydia Young L.P.N. - 12/26/2010 11:24 AM CDT Adult Solution Coordinator Intake/History Adult Solution Coordinator Intake/History Entered On: 12/26/2010 11:25 CDT Performed On: 12/26/2010 11:24 CDT by LYDIA YOUNG Intake Chief Complaint: Suture removal, back of head. Pt. is concerned that she may have an infection. Temperature Core: 36.4C(Converted to: 97.5DegF) (LOW) LYDIA YOUNG - 12/26/2010 11:24 CDT Subjective Pain Symptoms: Yes LYDIA YOUNG - 12/26/2010 11:24 CDT Pain Pain Assessment Grid Pain 1 Location: Head Intensity: 6 LYDIA YOUNG - 12/26/2010 11:24 CDT Dependent Habits Tobacco Use/Currently Using: No LYDIA YOUNG - 12/26/2010 11:24 CDT Caffeine Use Grid Caffeine Use: Current Type: Soft drinks Frequency: Daily LYDIA YOUNG - 12/26/2010 11:24 CDT Recreational Drug Use Grid Drug Use: None LYDIA YOUNG - 12/26/2010 11:24 CDT Allergy Allergies (Active) NKA Estimated Onset Date: Unspecified ; Created By: BRITTANY WALTON; Reaction Status: Active ; Category: Drug ; Substance: NKA ; Type: Allergy ; Updated By: BRITTANY WALTON; Reviewed Date: 12/26/2010 11:24 CDT Source: [facility] [employer] Document Id: [id number] CDT!21 documented in this encounter Plan of Treatment Not on filedocumented as of this encounter Visit Diagnoses Not on filedocumented in this encounter
--- OUTSIDE RECORDS SUMMARY | 2021-12-10 15:40 | XMS_ITS | Encounter Summary ---
:1980 Author Organization [facility] Address [address] [place] [address] Care Team Providers Name Role Phone Unavailable Primary Care Provider Unavailable Encounter Details Date Type Department Care Team Description 08/13/2010 Hospital Encounter [facility]X [facility] Melony Murillo P.A.-C. 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 - 08/13/2010 12:00 AM CDT [id number] CHIEF COMPLAINT/REASON FOR VISIT Leg pain. HISTORY OF PRESENT ILLNESS Patient is a 30-year-old female who comes today for the above. She states that on August 02 she got . 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 Thought maybe she just sprained or strained something. Seem to be mostly a burning pain. Trying to get by taking naproxen for it. She states that she went to [employer] last weekend in [place]. She ended up slipping and falling striking the front of the lower leg. She states it just seemed to make the situation worse. Her leg has been quite sore when she tries to fully straighten it. The area that she points to is the posterior thigh just above the knee down to the area just below the knee. It has not been in the calf itself. She states that it is creating what seems to be the worst charley horse of her life at night. She went to a physician in [place] who states that she seemed to have sprained it. Was given Flexeril as well as Tylenol No. 3. It has not seemed to help at all. She is rotating between ice and heat. She is able to walk on it. Certain movements seem to make it a little bit worse. There really has not been any redness, swelling. The only bruising that she had was on the front of the lower leg where she hit the step when she slipped and fell. She has not tried doing any nonweightbearing. Her past medical history otherwise is unremarkable. She says she is usually healthy. ALLERGIES Reviewed. CURRENT MEDICATIONS Reviewed. PHYSICAL EXAM VITAL SIGNS: Are stable. GENERAL: Alert 30-year-old female. Slightly tearful but in no acute distress otherwise. Examination of the right lower extremity from the hip all the way to the toes does not show any obvious swelling or erythema. There is mild ecchymosis noted on the anterior tib/fibula area. On palpation she has no tenderness up in the hip. She can fully flex and extend at the hip but only has pain with straight leg extension. I can abduct/adduct as well as internally/externally rotate without any problem. There is no crepitus. She has no posterior thigh tenderness and nothing anteriorly. She has some increased pain in the area of the distal biceps femoris that extends down into the calf. She has no pain directly over the patella or over the medial or lateral collateral ligament. No posterior tenderness either. There is no tenderness in the posterior calf. The veins are easily compressible. She has no pain along the Achilles or any dimpling or disruption. The Achilles performs correctly with patient prone on bed with leg in flexion. She has no pain other than minimal along lines where she is ecchymotic of the anterior aspect. There is no compartment tenseness. She has a good pulse in the popliteal area as well as on the dorsum of the foot in the posterior tibialis. The distal neurovascular exam is normal. Only with full extension does she have some increased discomfort and this is lateral posterior around the knee area. Ultrasound done. No fluid collection noted. X-rays done that shows no abnormalities. I spoke to Dr. Johnson as well as Kevin Alegre PAncelmo today. Explained the situation with the increased pain that does not seem to be helped by any of the modalities patient has tried. It was suggested to put the patient nonweightbearing for a week or two. I will change her to Toradol as well as something such as Vicodin for nighttime use. Will have her follow up if this is not improving. IMPRESSION/REPORT/PLAN 1. Limb pain. 2. Strain/sprain. PLAN: Toradol 10 mg every 6 hours as needed. Take with food. Crutches to be nonweightbearing. Vicodin 5/500 to use for severe breakthrough pain at night. She can continue the muscle relaxer. Discontinue the Tylenol No. 3. Follow up as noted. Lenny Key/jhon Electronically Signed By: ELANA MURILLO PA-C On: 08/14/2010 09:02 Source: [facility] MHSDOLBEYNONRADSYS Document Id: [id number] documented in this encounter Miscellaneous Notes Miscellaneous - Elana Murillo P.A.-C. - 08/13/2010 11:50 AM CDT Ambulatory Patient Summary [facility] , Visit Information Name: DENICE CRUZ Current Date: 08/13/2010 11:50:56 Primary Care Provider: ROYA BLACK MD Your Medications Here is a list of your medications. It is important to take your medications as directed. Use a pillbox or chart to help remind you to take your medications. Please let your doctor or nurse know if you have problems taking your medications. Medication/Strength Dose Route Frequency Indications/Special Instructions/Comments hydrocodone-acetaminophen (Vicodin 5 mg-500 mg oral tablet) 1 to 2 tablets Oral every 6 hours as needed for Pain Take narcotics as little as possible as they can be addictive, can lead to tolerance of the medication, and can cause constipation. The goal is to make the pain tolerable, NOT to take the pain away completelty. ketorolac (Toradol 10 mg oral tablet) 1 TABLET Oral four times a day TAKE WITH FOOD acetaminophen-codeine (Tylenol with Codeine #3 oral tablet) 1 tab(s) Oral every 4 hours as needed for Pain No more than 4,000mg acetaminophen/24hrs cyclobenzaprine (Flexeril 10 mg oral tablet) 1 tab(s) Oral three times a day as needed for Muscle spasm Your Allergies & Intolerances Substance Reaction Symptoms Category Comments NKA Drug Your Problem List Problem Status Onset Comments No Problems found Your Recommendations We want to make sure [...] Pap Smear every 3 years Women 21-65 08/13/2010 Checks for signs of cancer of the cervix. Lipid Panel every 5 years Age 20-75 08/13/2010 Checks blood for good (HDL) and bad (LDL) cholesterol. Know your numbers, they are one indicator of your risk for heart attack and stroke. Vaccine: Tetanus every 10 years 08/13/2010 Immunization to help prevent you from getting the seriousdisease Tetanus (Lockjaw). Your Upcoming Appointments Date Time Location Reason Provider No Appointments found Your Goals/Additional instructions: Source: [facility] POWERCHART Document Id: [id number] Miscellaneous - Elana Murillo P.A.-C. - 08/13/2010 11:50 AM CDT Ambulatory Depart Summary [facility] , Visit Information Name: DENICE CRUZ Current Date: 08/13/2010 11:50:55 Primary Care Provider: ROYA BLACK MD DENICE CRUZ has been given the following list of medications: Your Medications It is important to take your medications as directed. Use a pill box or chart to help remind you to take your medications. Please let your doctor or nurse know if you have problems taking your medications. Medication/Strength Dose Route Frequency Indications/Special Instructions/Comments hydrocodone-acetaminophen (Vicodin 5 mg-500 mg oral tablet) 1 to 2 tablets Oral every 6 hours as needed for Pain Take narcotics as little as possible as they can be addictive, can lead to tolerance of the medication, and can cause constipation. The goal is to make the pain tolerable, NOT to take the pain away completelty. ketorolac (Toradol 10 mg oral tablet) 1 TABLET Oral four times a day TAKE WITH FOOD acetaminophen-codeine (Tylenol with Codeine #3 oral tablet) 1 tab(s) Oral every 4 hours as needed for Pain No more than 4,000mg acetaminophen/24hrs cyclobenzaprine (Flexeril 10 mg oral tablet) 1 tab(s) Oral three times a day as needed for Muscle spasm Additional Information: Yes - Current list of reconciled medications is provided and explained to the patient and/or family, guardian/caregiver. 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 Mechanic Intake/History Entered On: 08/13/2010 10:06 CDT Performed On: 08/13/2010 10:05 CDT by BRITTANY WALTON Intake Chief Complaint: rt leg pain Temperature Core: 36.6C(Converted to: 97.9DegF) Peripheral Pulse Rate: 103/min (HI) Respiratory Rate: 18/min Systolic Blood Pressure: 110mmHg Diastolic Blood Pressure: 68mmHg NIBP Mean: 82mmHg BP Location: Right upper extremity (Comment: regular cuff used [BRITTANY WALTON - 08/13/2010 10:05 CDT] ) Actual Weight: 55.700kg(Converted to: 122lb 13oz) Weight Source: Standing scale Dosing Weight Clinic: 55.70kg BRITTANY WALTON - 08/13/2010 10:05 CDT Subjective Pain Symptoms: Yes BRTITANY WALTON - 08/13/2010 10:05 CDT Pain Pain Assessment Grid Pain 1 Location: Lower leg Intensity: 7 BRITTANY WALTON - 08/13/2010 10:05 CDT Dependent Habits Tobacco Use/Currently Using: No ANABELGarrick BRITTANY Pressley - 08/13/2010 10:05 CDT Allergies Allergies (Active) NKA Estimated Onset Date: Unspecified ; Created By: BRITTANY WALTON; Reaction Status: Active ; Category: Drug ; Substance: NKA ; Type: Allergy ; Updated By: BRITTANY WALTON; Reviewed Date: 08/13/2010 10:01 CDT Source: [employer] Document Id: [id number] CDT!22 Miscellaneous - Conversion, Historical Provider Ser - 08/13/2010 10:05 AM CDT Health Assessment Health Assessment Entered On: 08/13/2010 10:06 CDT Performed On: 08/13/2010 10:05 CDT by BRITTANY WALTON Nutrition Nutrition Risk Factors by History Adult: None ISABELLE BRITTANY Pressley - 08/13/2010 10:05 CDT Functional Current Daily Living Assistance: None BRITTANY WALTON - 08/13/2010 10:05 CDT Dependent Habits Tobacco Use/Currently Using: No Alcohol Use: Yes BRITTANY WALTON - 08/13/2010 10:05 CDT AUDIT Tool How Often Do You Have A Drink: Monthly or less How Many Drinks in a Day When Drinkin or 2 Six or More Drinks On One Occassion: Never Audit Phase 1 Score: 1 BRITTANY WALTON - 08/13/2010 10:05 CDT Psychosocial Domestic Concerns: None BRITTANY WALTON - 08/13/2010 10:05 CDT Advance Directive Advanced Directives: No BRITTANY WALTON - 08/13/2010 10:05 CDT Educ Needs Learning Style Preference Adult Grid Patient: None Family: None BRITTANY WALTON - 08/13/2010 10:05 CDT [facility] Document Id: [id number] CDT!21 documented in this encounter Plan of Treatment Not on filedocumented as of this encounter Procedures Procedure Name Priority Date/Time Associated Diagnosis Comme nts DX KNEE RIGHT 3 Routine 08/13/2010 11:35 AM Resul ts for this VIEWS CDT procedure are i n the results section. US NON VASCULAR Routine 08/13/2010 10:30 AM Resul ts for this EXTREMITY RIGHT CDT procedure ar e in the results section. documented in this encounter Results DX Knee Right 3 Views (08/13/2010 11:35 AM CDT) Anatomical Region Laterality Modality Lower Extremity, Knee Right Radiographic Imagi ng Specimen (Source) Anatomical Collection Method Collection Time Re ceived Time Location / / Volume Laterality 08/13/2010 11:35 AM CDT Narrative 08/13/2010 11:37 AM CDT Indication: Pain laterally ?? Right Knee: ?? The bones and joints are normal. ?? Impression: Normal Procedure Note ProviderTyshawn M.D. - 09/16/2016 ormatting of this note might be different from the original. Indication: Pain laterally Right Knee: The bones and joints are normal. Impression: Normal Historical Provider IMG DIAGNOSTIC IMAGING PROCE KATRIN US Non Vascular Extremity Right (08/13/2010 10:30 AM CDT) Anatomical Region Laterality Modality Upper Extremity, Lower Extremity Right Ultraso und Specimen (Source) Anatomical Collection Method Collection Time Re ceived Time Location / / Volume Laterality 08/13/2010 10:30 AM CDT Narrative 08/13/2010 10:51 AM CDT Indication: Pain laterally at the knee, 2 injuries, mild swelling ?? Right knee ultrasound ?? No abnormal fluid collections. ?? Impression: Normal limited exam Procedure Note ProviderTyshawn M.D. - 09/16/2016F ormatting of this note might be different from the original. Indication: Pain laterally at the knee, 2 injuries, mild swelling Right knee ultrasound No abnormal fluid collections. Impression: Normal limited exam Historical Provider IMG US PROCEDURES documented in this encounter Visit Diagnoses Not on filedocumented in this encounter
--- OUTSIDE RECORDS SUMMARY | 2021-12-10 15:40 | XMS_ITS | Encounter Summary ---
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 Her right sided knee pain began approximately 3 weeks ago when she was at her wedding and was dancing more than she would normally and she started to have lateral sided right knee pain with what she calls them charley horses. These never really went away and then about a week later she fell up the stairs landing what she thinks was on her right lateral aspect of her leg. She did not notice any bruising or any swelling and the charley horses seem to have gotten worse. Then she went to the Urgent Care where they obtained x-rays and did an ultrasound both of which were negative and then about a week ago she was standing at the mirror putting on her makeup and her knee gave out on her and she fell and then decided that she needed to be seen in Orthopedics. She states that it really has not gotten any better at this time. She states that the spasms still wake her up at night. She complains of a burning pain on the lateral aspect of her knee. She does have some giving out symptoms. She has never injured her knee before. PHYSICAL EXAM On examination, she has a large area of ecchymosis and swelling over the lateral aspect of her knee. This is right over the fibular head. It extends down into the pretibial area as well. She is exquisitely tender over her fibular head. She is also tender over her hamstring tendons in the biceps femoris area. She has full extension. She can flex to 110 degrees without any issue. Varus stress testing reproduces pain and possibly a minimal amount of laxity. She is tender over the lateral collateral ligament. Valgus stress testing is negative. Taylor's reproduces some anxiety and some pain over the lateral aspect. Anterior cruciate ligament appears intact. LABORATORY/RADIOLOGY X-rays reviewed showed no bony pathology. IMPRESSION/REPORT/PLAN Lateral collateral ligament strain, possible occult fibula fracture, possible partial rupture of the biceps femoris tendon. At this point, we are going to try a hinged knee brace. She is going to wear this for a week to 10 days. If her pain does not get any better and she continues to have some mechanical symptoms we would obtain an MRI. I did give her some tramadol to help her with pain. She has some Flexeril at home which seems to help. We are going to use heat for the muscle spasms followed with ice for the swelling. She will give us a call in a week to let us know how she is doing. Over 25 minutes spent with the patient, most of which was counseling and coordination of care. NURSE NOTE Patient escorted to room. Chief complaint taken. Brace application. Lenny Ruby/primo Electronically Signed By: CHITO BETTS PA-C On: 08/20/2010 11:33 Source: [facility] MHSDOLBEYNAMOSSYS Document Id: [id number] documented in this encounter Miscellaneous Notes Miscellaneous - Arabella Ragland L.P.N. 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 Has bruising noted to lateral knee. Swelling comes and goes. Was seen in UC x2 and ER x1. X-ray and ultrasound done. Given immobilizer but is too uncomfortable to wear. Has Gus horses frequently. Onset of Symptoms: DOI: injured while dancing at her [employer] dance on 08/02/10. Fell down stairs on 08/10/10 ARABELLA RAGLAND - 08/19/2010 15:00 CDT Subjective Pain Symptoms: Yes ARABELLA RAGLAND - 08/19/2010 15:00 CDT Pain Pain Assessment Grid Pain 1 Location: Knee Laterality: Right Intensity: 7 ARABELLA RAGLAND - 08/19/2010 15:00 CDT Dependent Habits Tobacco Use/Currently Using: No ARABELLA RAGLAND - 08/19/2010 15:00 CDT Recreational Drug Use Grid Drug Use: None ARABELLA RAGLAND - 08/19/2010 15:00 CDT Allergy Allergies (Active) NKA Estimated Onset Date: Unspecified ; Created By: BRITTANY WALTON; Reaction Status: Active ; Category: Drug ; Substance: NKA ; Type: Allergy ; Updated By: BRITTANY WALTON; Reviewed Date: 08/16/2010 14:31 CDT Source: [facility] [employer] Document Id: [id number] CDT!17 documented in this encounter Plan of Treatment Not on filedocumented as of this encounter Visit Diagnoses Not on filedocumented in this encounter
--- OUTSIDE RECORDS SUMMARY | 2021-12-10 15:40 | XMS_ITS | Encounter Summary ---
:[address] [facility] Address [address] [place] [address] Care Team Providers Name Role Phone Unavailable Primary Care Provider Unavailable Encounter Details Date Type Department Care Team Description 08/16/2010 Hospital Encounter [facility] Jewels Taylor P.A.-C. 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 HISTORY OF PRESENT ILLNESS 30-year-old female presents to Urgent Care Clinic this morning with her . Denice states that she is still having significant pain involving her right lower leg. She states that back on August 02, 2010 she got . Somehow with all of the dancing at the wedding celebration she injured her right lower leg. She states she then reinjured it on August 09. She has been evaluated both in the Urgent Care Center and the emergency room. She was in the Urgent Care Center on August 13 where she received 15 Vicodin tablets. She was then in the emergency room yesterday and received 15 more Vicodin tablets, tramadol and Flexeril. She states she was given a morphine injection in the emergency room which helped significantly. She did take the Vicodin last night because of her significant pain but states she is almost out of those pain pills and is requesting a refill. She states she has noticed increased bruising and swelling of the area since yesterday morning but denies any new specific injury at that time. She states that it was suggested she follow up in Orthopedics as she may have an occult fracture although all of her x-rays have been normal as well as a venous Doppler ultrasound which was within normal limits which she had completed within the past few days. She has no new concerns at this time. CURRENT MEDICATIONS Reviewed. Please see electronic medical record. ALLERGIES No known drug allergies. PHYSICAL EXAM Denice's blood pressure is 122/88, temperature 37.7, pulse 104, respiratory rate 16. She has a knee immobilizer in place and is ambulating with the assistance of crutches. On exam of her right lower leg there is a large area of ecchymosis in the area lateral to her knee joint. There is soft tissue swelling in that area as well. There is no overlying erythema, increased warmth or break in the skin. There is no pain specifically over the gastrocnemius muscle. There is no specific knee joint pain or erythema. Mildly tender in the lateral joint line. There is also a faint area of ecchymosis over the mid anterior tibia. There is no ankle or foot pain. Pedal pulses intact. She can flex and extend her foot comfortably. I requested she show me range of motion of her knee but she is hesitant to do this. IMPRESSION/REPORT/PLAN Contusion right lower leg. PLAN: Patient already has the immobilizing knee brace and crutches to assist with ambulation. She is already elevating the right lower extremity as much as possible as well as applying ice to the area for 20 minutes intermittently. She is to take an anti-inflammatory medication such as ibuprofen or Naproxen. For additional pain control at night time I provided her with Vicodin tablets 5 mg, one or two every 6 hours as needed. She is awaiting the orthopedic referral and they should be contacting her in the next few days. Lenny Angela/mehul Electronically Signed By: JEWELS CARRANZA PA-C On: 09/02/2010 04:21 Modified by and Electronically Signed by: JEWELS CARRANZA PA-C On: 09/02/2010 04:21 pm Source: [facility] MHSDOLBEYNONRADSYS Document Id: [id number] documented in this encounter Miscellaneous Notes Miscellaneous - Denice Ross R.N. - 08/18/2010 11:17 AM CDT General Message Document Contains Addenda Addendum by DENICE ROSS RN on 19 August 2010 10:18:14 CDT Please schedule for 1430 today with Janell Rickey PAC. Addendum by DENICE ROSS RN on 18 August 2010 14:39:37 CDT Please call patient for an appointment this week. Addendum by CHITO BETTS PA-C on 18 August 2010 14:27:45 CDT From: CHITO BETTS PA-C To: [facility] Ortho/Pod/PMNR/Neuro Triage Nurse; Sent: 08/18/2010 14:27:45 CDT Subject: RE: General Message i can see her this week Addendum by DENICE ROSS RN on 18 August 2010 13:50:38 CDT Addendum by DENICE ROSS RN on 18 August 2010 13:50:24 CDT Patient was able to get an appt on 08/27/10 at 1330 and is wondering if she can be seen any sooner.Pt calls back wondering if she can be seen any earlier as she is rating her right knee pain at a 6after taking VICODIN and a 9 after. C/O bruising in posterio-lateral knee. Pt had injured it dancing on 08/02/09 and down stairson 08/10/10. Pt has also had swelling in posterior knee which is golf bll sized. US was done. CMS is equal in kristopher. LE . Admits to warmth. Patient also c/o Gus Horses 1 day prior to SDC visit. Denies shortness of breath or fever. Patient is also in a knee immobilizer.pt is also taking NAROSYN 500 mg bid between VICODIN dosing. Please advise. Will call # [phone]. From: DENICE ROSS RN ([facility] Ortho/Pod/PMNR/Neuro Triage Nurse) To: [facility] Ortho/Pod/PMNR/Neuro Triage Nurse; Sent: 08/18/2010 11:17:07 CDT Subject: General Message SDC referral for leg pain called per Brook Kumari for leg pain in the posterior thigh just above the knee down to the area just below the knee. Orthopedist advises appt in 10-14 days, please schedulewith either Dr. Gaspar or Dr. Johnson. Source: [facility] POWERCHART Document Id: [id number] Miscellaneous - Marcela Mayo, L.P.N. 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 Entered On: 08/16/2010 9:32 CDT Performed On: 08/16/2010 9:27 CDT by MARCELA MAYO Intake Chief Complaint: injured rigth leg a couple of weeks ago-seen in er yesterday- gus horses and needs more pain med Temperature Core: 37.7C(Converted to: 99.9DegF) Peripheral Pulse Rate: 104/min (HI) Respiratory Rate: 16/min Systolic Blood Pressure: 122mmHg Diastolic Blood Pressure: 88mmHg NIBP Mean: 99mmHg BP Location: Right upper extremity (Comment: large bp cuff [MARCELA MAYO - 08/16/2010 9:27 CDT] ) MARCELA MAYO - 08/16/2010 9:27 CDT Subjective Pain Symptoms: Yes MARCELA MAYO - 08/16/2010 9:27 CDT Pain Pain Assessment Grid Pain 1 Location: Lower leg Laterality: Right Intensity: 7 MARCELA MAYO - 08/16/2010 9:27 CDT Dependent Habits Tobacco Use/Currently Using: No MARCELA MAYO - 08/16/2010 9:27 CDT Recreational Drug Use Grid Drug Use: None MARCELA MAYO - 08/16/2010 9:27 CDT Allergies Allergies (Active) NKA Estimated Onset Date: Unspecified ; Created By: BRITTANY WALTON; Reaction Status: Active ; Category: Drug ; Substance: NKA ; Type: Allergy ; Updated By: BRITTANY WALTON; Reviewed Date: 08/15/2010 13:24 CDT Source: [email or web address] Document Id: [id number] CDT!23 documented in this encounter Plan of Treatment Not on filedocumented as of this encounter Visit Diagnoses Not on filedocumented in this encounter
--- OUTSIDE RECORDS SUMMARY | 2021-12-10 15:40 | XMS_ITS | Encounter Summary ---
:1980 Author Organization [facility] Address [address] [place] [address] Care Team Providers Name Role Phone Unavailable Primary Care Provider Unavailable Encounter Details Date Type Department Care Team Description 07/04/2011 Hospital Encounter [facility]X [facility] Nayla Whatley, P.A. 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 - 07/04/2011 12:00 AM CST [id number] CHIEF COMPLAINT/PURPOSE OF VISIT 1. Headache 2. Nausea 3. Elevated pulse HISTORY OF PRESENT ILLNESS Patient is a 31-year-old female with a history of tachycardia, headache and elevated blood pressure for the last few weeks; however, it seems to be getting worse. Patient presents with her today. Patient did present to the emergency room on Wednesday and of this last week for the same issues. That was treated with Zofran and pain medication that seem to get her some sleep. However, she states that she has not been sleeping well the last couple nights, more so last night. Stating this mostly has been due to restlessness and she is not able to hold still while laying down in bed. She also states this morning she noticed that her feet turned purple while she was in the shower; however, upon sitting down coloration returned to normal of her feet. She has been monitoring her pulse and states that it was 171 this morning while she was brushing her teeth. When she sat down it went down to 150 and then as she laid down it went down to 98. The patient does have an appointment with dental hygienist mobile coordinator up in the [facility] next week and hoping today to have some symptomatic relief in order to get some sleep and relief from nausea until that time. She does feel more nauseated now than she did on her presentation to the emergency room on . ALLERGIES Reviewed. CURRENT MEDICATIONS Reviewed. SYSTEMS REVIEW As above, otherwise negative. PHYSICAL EXAM VITAL SIGNS: Reviewed. Blood pressure 128/98, temperature 37.4, pulse 108, respirations 16. GENERAL: Patient presents in no acute distress. Is pleasant and cooperative. HEENT: Eyes pupils equal, round, reactive to light and accommodation. Extraocular movements intact. Ears tympanic membranes pearly monreal with normal landmarks bilaterally. Nose moist mucosa. Sinuses are nontender to palpation bilaterally. NECK: Supple without lymphadenopathy. HEART: Regular rate and rhythm. LUNGS: Clear to auscultation bilaterally. IMPRESSION/REPORT/PLAN 1. Nausea 2. Headache 3. Elevated blood pressure 4. Tachycardia In discussion with the patient I will not be starting her on any blood pressure medications at this time. It should be done by primary care or by her providing dental hygienist mobile coordinator that she sees this week. Recommend that they will probably start her on treatment for that then. For headache patient was offered shot of Toradol as this has seemed to help in the past; however, she declined this at this time. Patient given a prescription for Zofran as this has helped with her nausea before. Patient requesting something for sleep. In discussion with the patient she has taken Adderall that has seemed to help her calm down and to be able to get some sleep; however, this contraindicated with her tachycardia. Patient has failed treatment with Ativan. It is recommended that she try prescription of Restoril; however, I informed her that through the Urgent Care I would only give her enough for the weekend and then she is to follow up with primary care provider. She may inform them if this seems to work or not and they may change prescriptions as they see necessary. Patient verbalized understanding and agreement with plan. 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 Entered On: 07/04/2011 8:35 MATRIX DRIER TENDER Performed On: 07/04/2011 8:30 MATRIX DRIER TENDER by CHERYL CASTAÑEDA Intake Chief Complaint : pulse was 170--in er yesterday for [id number] and pulse--not sleeping-bp and pulse change all the time-is going to be seen on the 14ht with a cardiology Temperature Oral : 37.4C(Converted to: 99.3DegF) (HI) Peripheral Pulse Rate : 108/min (HI) Respiratory Rate : 16/min Systolic Blood Pressure : 128mmHg Diastolic Blood Pressure : 98mmHg (>HHI) NIBP Mean : 108mmHg Actual Weight : 52.6kg(Converted to: 115lb 15oz) Weight Source : Standing scale Dosing Weight Clinic : 52.60kg CHERYL CASTAÑEDA - 07/04/2011 8:30 MATRIX DRIER TENDER Subjective Pain Symptoms : Yes CHERYL CASTAÑEDA 07/04/2011 8:30 MATRIX DRIER TENDER Pain Pain Assessment Grid Pain 1 Location : Other: headache Intensity : 8 CHERYL CASTAÑEDA 07/04/2011 8:30 MATRIX DRIER TENDER Dependent Habits Tobacco Use/Currently Using : No Smoking Status : Never smoker CHERYL CASTAÑEDA - 07/04/2011 8:30 MATRIX DRIER TENDER Tobacco Use Grid Last Use : never CHERYL CASTAÑEDA 07/04/2011 8:30 MATRIX DRIER TENDER Caffeine Use Grid Caffeine Use : Current Type : Soft drinks Frequency : Daily CHERYL CASTAÑEDA - 07/04/2011 8:30 MATRIX DRIER TENDER Recreational Drug Use Grid Drug Use : None CHERYL CASTAÑEDA - 07/04/2011 8:30 MATRIX DRIER TENDER Allergy Allergies (Active) NKA Estimated Onset Date: Unspecified ; Created By: BRITTANY WALTON; Reaction Status: Active ; Category: Drug ; Substance: NKA ; Type: Allergy ; Updated By: BRITTANY WALTON; Reviewed Date: 07/02/2011 20:27 MATRIX DRIER TENDER Source: [facility] [employer] Document Id: [id number] MATRIX DRIER TENDER!33 IX DRIER TENDER documented in this encounter Plan of Treatment Not on filedocumented as of this encounter Visit Diagnoses Not on filedocumented in this encounter
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
--- OUTSIDE RECORDS SUMMARY | 2021-12-10 15:40 | XMS_ITS | Encounter Summary ---
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 - 08/27/2010 12:00 AM CDT [id number] CHIEF COMPLAINT/REASON FOR VISIT Continued headache, nausea, ears plugged and dizziness HISTORY OF PRESENT ILLNESS Jeannine is a 30-year-old female in attendance to the Urgent Care this evening with her with complaints of continued headache, nausea, ears feeling plugged and dizziness. She does have a history of migraines but she says that this headache is different. She was seen recently on the by Dr. Adriana Topete for this same problem, has been seen by Dr. Nolan on August 21 to establish care for syncope and rapid heartbeat. She states her headache is a throbbing sensation in the back of her head and tension into the front of her head. She can get cloudy vision with this. She does not take triptans for headaches due to a squeezing chest feeling and shortness of breath. She does complain of some photophobia, phonophobia, and irritability. She is also currently being treated for right lower leg pain with possible fracture or muscle tear with tramadol. She has been on Vicodin which she said gave her nausea and did not work, was switched to tramadol last week, . She has had headache problems since approximately Wednesday, particularly headaches with dizziness and nausea. Her last tramadol dose was this morning. She does take naproxen 250 mg two tablets twice a day for her headache, tramadol for her knee pain. She has also been started on atenolol for her heart. ALLERGIES Reviewed, as of right now, none. CURRENT MEDICATIONS Reviewed PHYSICAL EXAM VITAL SIGNS: Temperature 37.1 degrees Celsius. Heart rate of 88. Respiratory rate of 16. Blood pressure 126/92. Pain 8/10. GENERAL: Pleasant female in no acute distress, nontoxic in appearance. She has a look that she is in pain. HEENT: Head normocephalic without masses or visible scalp lesions. Pupils equal, round and reactive to light and accommodation. EOMs intact. No ptosis, exophthalmos, or nystagmus. TMs clear, pearly monreal, intact with good cone of light reflex bilaterally. Tragus mobile and nontender. Oropharynx not erythematous and without exudate. Uvula midline. Mucous membranes moist and pink. Sinuses without pain to palpation of frontal and maxillary. NECK: Supple without masses, palpable lymphadenopathy, or JVD. No carotid bruits upon auscultation. Thyroid within normal limits without palpable nodules. Trachea midline. HEART: Regular rate and rhythm with S1 and S2. There are no S3, S4, murmurs, rubs, clicks, or gallops. LUNGS: Clear to auscultation in all lobes bilaterally; without wheezes, crackles, or rhonchi. No respiratory distress noted. ABDOMEN: Abdomen flat and nontender with bowel sounds present x4 quadrants. No organomegaly, masses, rebound tenderness, guarding or rigidity noted. No inguinal hernia noted. No CVA tenderness bilaterally. IMPRESSION/REPORT/PLAN 1. Headache 2. Nausea PLAN: After further discussion of patient with Dr. Adriana Topete who saw her earlier in the week and doing a little research, it is felt that headaches and nausea are possibly related to tramadol use. Patient seemed to develop these symptoms after starting tramadol. The plan is to discontinue tramadol and trial Tylenol No. 3 for musculoskeletal pain and Zofran 4 mg one tablet every eight hours as needed for nausea. Both of these medications she has had in the past without problems. We did also discuss potential need for brain MRI, particularly if these symptoms do not improve. She has been on Vicodin in the past as well but she said that did not help her pain and it caused nausea. Medication list was updated, printed off, given to patient as was the Tylenol No. 3 prescription. She will follow up with Dr. Nolan in the near future and will be seen sooner if symptoms worsen or do not dissipate. To Ngo R.N. C.N.P./brian Electronically Signed By: TO NGO RN, CNP On: 09/02/2010 08:21 Source: [facility] Document Id: [id number] documented in this encounter Miscellaneous Notes Miscellaneous - To Ngo C.N.P. - 08/27/2010 6:54 PM CDT Ambulatory Patient Summary Formerly [facility] , Visit Information Name: JEANNINE CRUZ Current Date: 08/27/2010 18:54:02 Primary Care Provider: ROYA BLACK MD Your Medications Here is a list of your medications. It is important to take your medications as directed. Use a pillbox or chart to help remind you to take your medications. Please let your doctor or nurse know if you have problems taking your medications. Medication/Strength Dose Route Frequency Indications/Special Instructions/Comments ondansetron (Zofran 4 mg oral tablet) 4 mg Oral every 8 hours as needed for Nausea Nausea acetaminophen-codeine (Tylenol with Codeine #3 oral tablet) 1 to 2 tablets Oral every 4 hours as needed for Pain pain / No more than 4,000mg acetaminophen/24hrs atenolol (atenolol 25 mg oral tablet) 25 mg Oral once a day cyclobenzaprine (Flexeril 10 mg oral tablet) naproxen (naproxen 250 mg oral tablet) 1 tab(s) Oral two times a day with meals Your Allergies & Intolerances Substance Reaction Symptoms [...] Pap Smear every 3 years Women 21-65 08/27/2010 Checks for signs of cancer of the cervix. Lipid Panel every 5 years Age 20-75 08/27/2010 Checks blood for good (HDL) and bad (LDL) cholesterol. Know your numbers, they are one indicator of your risk for heart attack and stroke. Vaccine: Tetanus every 10 years 08/27/2010 Immunization to help prevent you from getting the seriousdisease Tetanus (Lockjaw). Your Upcoming Appointments Date Time Location Reason Provider 09/24/2010 14:30 [facility] LEG PAIN/RCK SAME DAY PER JEANNINE Your Goals/Additional instructions: Source: [facility] [employer]OWER[employer]ART Document Id: [id number] Electronically signed by Zac [facility] Office Services Clerk [id number] at 09/27/2016 8:00 PM CDT Miscellaneous - To Ngo C.N.P. - 08/27/2010 6:54 PM CDT Ambulatory Depart Summary [facility] , Visit Information Name: JEANNINE CRUZ Current Date: 08/27/2010 18:54:01 Primary Care Provider: ROYA BLACK MD JEANNINE CRUZ has been given the following list of medications: Your Medications It is important to take your medications as directed. Use a pill box or chart to help remind you to take your medications. Please let your doctor or nurse know if you have problems taking your medications. Medication/Strength Dose Route Frequency Indications/Special Instructions/Comments ondansetron (Zofran 4 mg oral tablet) 4 mg Oral every 8 hours as needed for Nausea Nausea acetaminophen-codeine (Tylenol with Codeine #3 oral tablet) 1 to 2 tablets Oral every 4 hours as needed for Pain pain / No more than 4,000mg acetaminophen/24hrs atenolol (atenolol 25 mg oral tablet) 25 mg Oral once a day cyclobenzaprine (Flexeril 10 mg oral tablet) naproxen (naproxen 250 mg oral tablet) 1 tab(s) Oral two times a day with meals Additional Information: Yes - Current list of reconciled medications is provided and explained to the patient and/or family, guardian/caregiver. Source: [facility] POWERCHART Document Id: [id number] Electronically signed by Zac, [facility] Office Services Clerk [id number] at 09/27/2016 8:00 PM CDT Miscellaneous - Cheryl Mayo, L.P.N. 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 Intake/History Entered On: 08/27/2010 18:00 CDT Performed On: 08/27/2010 17:54 CDT by CHERYL MAYO Intake Chief Complaint: here last week and last weekend-dizzy, epdglh-liaijbz-ebgf pulse-had a ekg which was abnormal-had a ekd here and it was normal-now nauseated -diarrhea-blurred jmyiem-oytra-kyuaerhg-still nauseated and headache Temperature Core: 37.1C(Converted to: 98.8DegF) Peripheral Pulse Rate: 88/min Respiratory Rate: 16/min Systolic Blood Pressure: 126mmHg Diastolic Blood Pressure: 92mmHg (>HHI) NIBP Mean: 103mmHg BP Location: Right upper extremity (Comment: large bp cuff [CHERYL MAYO - 08/27/2010 17:54 CDT] ) CHERYL MAYO - 08/27/2010 17:54 CDT Subjective Pain Symptoms: Yes CHERYL MAYO - 08/27/2010 17:54 CDT Pain Pain Assessment Grid Pain 1 Location: Other: headache Laterality: Bilateral Intensity: 8 CHERYL MAYO - 08/27/2010 17:54 CDT Dependent Habits Tobacco Use/Currently Using: No CHERYL MAYO - 08/27/2010 17:54 CDT Caffeine Use Grid Caffeine Use: Current Type: Soft drinks Frequency: Daily CHERYL MAYO - 08/27/2010 17:54 CDT Recreational Drug Use Grid Drug Use: None CHERYL MAYO - 08/27/2010 17:54 CDT Allergy Allergies (Active) NKA Estimated Onset Date: Unspecified ; Created By: BRITTANY WALTON; Reaction Status: Active ; Category: Drug ; Substance: NKA ; Type: Allergy ; Updated By: BRITTANY WALTON; Reviewed Date: 08/24/2010 16:14 CDT Source: [employer] Document Id: [id number] CDT!28 documented in this encounter Plan of Treatment Not on filedocumented as of this encounter Visit Diagnoses Not on filedocumented in this encounter
--- OUTSIDE RECORDS SUMMARY | 2021-12-10 15:40 | XMS_ITS | Encounter Summary ---
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 Last Filed Vital Signs Vital Sign Reading Time Taken Comments Blood Pressure 138/98 07/12/2011 6:00 AM CDT Pulse - - Temperature - - Respiratory Rate 16 07/12/2011 4:47 AM CDT Oxygen Saturation - - Inhaled Oxygen Concentration - - Weight 51.7 kg (113 lb 15.7 oz) 07/12/2011 4:47 AM CDT Height - - Body Mass Index 18.76 07/01/2011 9:30 AM 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 The following includes patient education materials and information regarding your injury/illness. Chief Complaint: CHRISTINE - Headache; WEAKNESS/SOB/CHRISTINE/NAUSEA Follow-Up Instructions: With: Address: When: ROYA BLACK [address] [place] [address] [place] [id number] Business (1) Within As Needed Comments: We gave you 2 mg haldol IV and 50 mg benadryl for the Headache We gave you dilaudid 2 mg for the belly pain The [facility] I mentioned is the [facility] it's on the web Patient Education Materials: ED Tests and Procedures: Order Status Discharge Prescriptions & Home Medications: Medication/Strength Dose Route Frequency Indications/Special Instructions/Comments metoclopramide (Reglan 10 mg oral tablet) 20 mg Oral once 2 tablets one time for each headache oxycodone-acetaminophen (Percocet 5/325 oral tablet) 1 to 2 tablets Oral every 6 hours No more than 4,000mg acetaminophen/24hrs dextroamphetamine-amphetamine (Adderall) 10 mg Oral once a [...] information about how to take those medications. JEANNINE OWENS or anitha has reviewed the home medications you have [...] arrange a ride home with a responsible republican. IROMAN JENNIFER LYNN , or responsible republican have received this information and my questions have been answered. I have discussed any challenges I see with this plan with the nurse or physician. Patient Signature or Responsible Green Party/Relationship Date/Time Provider Signature Date/Time Medication Reconciliation: Reconciliation is a process of identifying the most accurate list of all medications a patient is taking - including name, dosage, frequency, and route - and using this list to provide to the patient information about how to take those medications. JEANNINE OWENS or designee has reviewed the home [...] arrange a ride home with a responsible republican. ROMAN Velasco JENNIFER LYNN , or responsible republican have received this information and my questions have been answered. I have discussed any challenges I see with this plan with the nurse or physician. Patient Signature or Responsible Green Party/Relationship Date/Time Provider Signature Date/Time Source: DoYouRemember Document Id: [id number] Conversion, Historical Provider Ser - 07/12/2011 7:03 AM CDT ED Depart Summary [facility] Clinical Discharge Summary PERSON INFORMATION Name JEANNINE OWENS Age 31 Years 1980 12:00 AM Sex Female Language North Korean PCP ROYA BLACK MD Marital Status Visit Id Visit Reason CHRISTINE - Headache; WEAKNESS/SOB/CHRISTINE/NAUSEA Specialty Enc Type Emergency Med Service Emergency Medicine Referred by Track Group [facility] ED/UC Discharge 07/12/2011 6:52 AM Tracking Id [id number] Checkout 07/12/2011 6:52 AM Checkin 07/12/2011 4:41 AM Acuity 3 -Urgent Dispo Type * Discharged to Home or Self Care Arrival 07/12/2011 4:41 AM Reg Status Complete LOS 000 02:11 Address: [address] [place] [address] [place] [phone] Comment: PROVIDER INFORMATION Provider Role Provider Contact Time ALEXIS JHAVERI MD ED Provider 07/12/11 04:47 MARC ALMAZNAR RN ED Nurse 07/12/11 04:47 ALEXIS JHAVERI MD ED Provider 07/12/11 05:02 DIAGNOSIS Comment: PATIENT EDUCATION INFORMATION Instructions: Follow up: With: Address: When: ROYA BLACK [address] [place], [place] [address] [place], [place] [phone] [facility] (1) Within As Needed Comments: We gave you 2 mg haldol IV and 50 mg benadryl for the Headache We gave you dilaudid 2 mg for the belly pain The [facility] I mentioned is the [facility] it's on the web Source: DoYouRemember Document Id: [id number] documented in this encounter Nursing Notes Conversion, Historical Provider Ser - 07/12/2011 5:45 AM CDT PRN Response PRN Response Entered On: 07/12/2011 5:44 CDT Performed On: 07/12/2011 5:45 CDT by MARC ALMANZAR RN PRN Medication Effectiveness Evaluation PRN Medication Effective : Yes Post Medication Pain Assessment : 5 MARC ALMANZAR RN - 07/12/2011 5:44 CDT Source: DoYouRemember Document Id: [id number] CDT!4 Conversion, Historical Provider Ser - 07/12/2011 4:47 AM CDT ED Primary Assessment ED Primary Assessment Entered On: 07/12/2011 4:56 CDT Performed On: 07/12/2011 4:47 CDT by MARC ALMANZAR RN Reason For Visit Problems(Active) Anxiety disorder NOS Name of Problem: Anxiety disorder NOS ; Onset Date: 07/01/2011 ; Recorder: LEEANN SANDERS MD; Confirmation: Confirmed ; Classification: Medical ; Code: 1231 ; Last Updated: 07/01/2011 5:45 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 ; Life Cycle Status: Active ; Responsible Provider: LEEANN SANDERS MD; Vocabulary: ICD-9-CM Palpitation Name of Problem: Palpitation ; Onset Date: 07/01/2011 ; Recorder: LEEANN SANDERS MD; Confirmation: Confirmed ; Classification: Medical ; Code: 1231 ; Last Updated: 07/01/2011 6:47 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 Pt states she's feeling sick to her stomach now but denies SOB. pt states apneic episodes Information Given By : Patient, Significant other Accompanied By : Significant other Mode of Arrival ED : Private vehicle Track : Medical Languages : [place] Vital Signs Assessed : Yes GCS Assessed : Yes Treatments Prior to Arrival : Other: furinol MARC ALMANZAR RN - 07/12/2011 4:47 CDT Vital Signs Temperature Core : 37.1C(Converted to: 98.8DegF) Apical Heart Rate : 91/min Respiratory Rate : 16/min Systolic Blood Pressure : 126mmHg Diastolic Blood Pressure : 97mmHg (>HHI) NIBP Mean : 107mmHg BP Location : Right upper extremity SpO2 : 100% Oxygen Saturation Monitoring Frequency : Continuous Oxygen Therapy : Room air Actual Weight : 51.7kg Actual Weight Conversion to Pounds : 113.740lb Weight Source : Bed scale MARC ALMANZAR RN - 07/12/2011 4:47 CDT Irene Coma Eye Opening Response Irene : Spontaneously Best Verbal Response [place] : Oriented Best Motor Response [place] : Obeys simple commands Irene Coma Score : 15 MARC ALMANZAR RN - 07/12/2011 4:47 CDT Pain Assessment Pain Symptoms : Yes MARC ALMANZAR RN - 07/12/2011 4:47 CDT Pain Pain Assessment Grid Pain 1 Pain 2 Location : Abdomen Head MARC ALMANZAR RN - 07/12/2011 4:47 CDT MARC ALMANZAR RN - 07/12/2011 4:47 CDT HORACIO HORACIO Level 1 : No HORACIO Level 2 : No HORACIO Level 3 : Many Vital Signs HORACIO : No MARC ALMANZAR RN - 07/12/2011 4:47 CDT DCP GENERIC CODE Tracking Acuity : 3 -Urgent Tracking Group : [facility] ED/ MARC ALMANZAR RN - 07/12/2011 4:47 CDT Allergy Allergies (Active) NKA Estimated Onset Date: Unspecified ; Created By: BRITTANY WALTON; Reaction Status: Active ; Category: Drug ; Substance: NKA ; Type: Allergy ; Updated By: BRITTANY WALTON; Reviewed Date: 07/04/2011 8:35 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 Respiratory Airway : Patent Respirations : Unlabored Respiratory Pattern : Regular Oxygen Therapy : Room air MARC ALMANZAR RN - 07/12/2011 4:47 CDT Cardiovascular Heart Rhythm : Regular Skin Color : Normal for ethnicity Skin Description : Dry Skin Temperature : Warm MARC ALMANZAR RN - 07/12/2011 4:47 CDT Neurological Level of Consciousness : Drowsy Orientation : Oriented x 3 Characteristics of Speech : Appropriate for age Neuro Patient Stated Symptoms : Dizziness, Drowsiness, Visual changes Gait : Unsteady Swallowing Difficulty/Aspiration Risk : None Loss of Consciousness : No MARC ALMANZAR RN - 07/12/2011 4:47 CDT ED Psychosocial Affect/Behavior : Restless Domestic Abuse Concerns : None Emotional Support Available : Yes MARC ALMANZAR RN - 07/12/2011 4:47 CDT Gastrointestinal Nutrition ED : Adequate MARC ALMANZAR RN - 07/12/2011 4:47 CDT Musculoskeletal Fall Prevention Education Provided : Yes MARC ALMANZAR RN - 07/12/2011 4:47 CDT Social Habits Tobacco Use/Currently Using : No Tobacco Use/Last 12 months : No Smoking Status : Never smoker MARC ALMANZAR RN - 07/12/2011 4:47 CDT Tobacco Use Grid Last Use : never MARC ALMANZAR RN - 07/12/2011 4:47 CDT Alcohol Use Grid Alcohol Use : Yes Type : Wine Frequency : Weekly Amount : 2 glasses MARC ALMANZAR RN - 07/12/2011 4:47 CDT Recreational Drug Use Grid Drug Use : None MARC ALMANZAR RN - 07/12/2011 4:47 CDT Source: [facility] Document Id: [id number] CDT!88 documented in this encounter ED Notes Tyshawn Frank Provider Ser - 07/12/2011 6:52 AM CDT ED Treatments and Procedures ED Treatments and Procedures Entered On: 07/12/2011 7:00 CDT Performed On: 07/12/2011 6:52 CDT by MARC ALMANZAR RN Peripheral IV Peripheral IV Assess/Intervention Grid Peripheral IV #1 IV Activity : Discontinue Number of Attempts : 1 Date of Insertion : 07/12/2011 CDT IV Site : Hand Laterality : Left Catheter Size : 20 Catheter Type : Protective Primary Tubing Changed : 07/12/2011 CDT MARC ALMANZAR RN - 07/12/2011 6:59 CDT Source: DoYouRemember Document Id: [id number] CDT!12 Conversion, Historical Provider Ser - 07/12/2011 6:52 AM CDT ED Disposition Summary ED Disposition Summary Entered On: 07/12/2011 7:02 CDT Performed On: 07/12/2011 6:52 CDT by MARC ALMANZAR RN ED Disposition Summary Accompanied By : Significant other Mode of Discharge : Ambulatory Transportation : Private vehicle Discharge From ED With : Home Med List Printed Discharge Instructions Given to Patient : Yes Patient Status at Discharge from ED : Improved MARC ALMANZAR RN - 07/12/2011 7:01 CDT Source: DoYouRemember Document Id: [id number] CDT!8 Conversion, Historical Provider Ser - 07/12/2011 6:40 AM CDT ED Nurse Reassess ED Nurse Reassess Entered On: 07/12/2011 6:44 CDT Performed On: 07/12/2011 6:40 CDT by MARC ALMANZAR RN Pain Assessment Pain Symptoms : Yes MARC ALMANZAR RN - 07/12/2011 6:43 CDT Pain Pain Assessment Grid Pain 1 Pain 2 Location : Abdomen Head Intensity : 1 1 MARC ALMANZAR RN - 07/12/2011 6:43 CDT MARC ALMANZAR RN - 07/12/2011 6:43 CDT Neuro Reassess Neuro Patient Stated Symptoms : None Level of Consciousness : Alert Orientation : Oriented x 3 Characteristics of Speech : Appropriate for age Gait : Steady Neuro Note : pt states having almost no pain at all. MUCH more talkative and alert. States ready to go home and sleep. MARC ALMANZAR RN - 07/12/2011 6:43 CDT GI Reassess GI Patient Stated Symptoms : None MARC ALMANZAR RN - 07/12/2011 6:43 CDT Source: DoYouRemember Document Id: [id number] CDT!20 Conversion, Historical Provider Ser - 07/12/2011 6:15 AM CDT ED Nurse Reassess ED Nurse Reassess Entered On: 07/12/2011 6:29 CDT Performed On: 07/12/2011 6:15 CDT by MARC ALMANZAR RN Pain Assessment Pain Symptoms : Yes MARC ALMANZAR RN - 07/12/2011 6:28 CDT Pain Pain Assessment Grid Pain 1 Pain 2 Location : Abdomen Head Intensity : 5 5 MARC ALMANZAR RN - 07/12/2011 6:28 CDT MARC ALMANZAR RN - 07/12/2011 6:28 CDT Neuro Reassess Neuro Patient Stated Symptoms : None Level of Consciousness : Alert Orientation : Oriented x 3 Characteristics of Speech : Appropriate for age Gait : Steady Swallowing Difficulty/Aspiration Risk : None Neuro Note : pt more alert. In room smiling, talking to , states feeling a lot better. MARC ALMANZAR RN - 07/12/2011 6:28 CDT GI Reassess GI Patient Stated Symptoms : Abdominal pain MARC ALMANZAR RN - 07/12/2011 6:28 CDT Source: DoYouRemember Document Id: [id number] CDT!21 Conversion, Historical Provider Ser - 07/12/2011 5:00 AM CDT ED Nurse Reassess ED Nurse Reassess Entered On: 07/12/2011 5:54 CDT Performed On: 07/12/2011 5:00 CDT by MARC ALMANZAR RN Pain Assessment Pain Symptoms : Yes MARC ALMANZAR RN - 07/12/2011 5:53 CDT Pain Pain Assessment Grid Pain 1 Pain 2 Location : Abdomen Head Intensity : 9 9 MARC ALMANZAR RN - 07/12/2011 5:53 CDT MARC ALMANZAR RN - 07/12/2011 5:53 CDT Resp Reassess Respiratory Patient Stated Symptoms : None Distress : None Respirations : Unlabored Cough : None MARC ALMANZAR RN - 07/12/2011 5:53 CDT CV Reassess CV Patient Stated Symptoms : None Skin Color : Normal for ethnicity Skin Description : Dry Skin Temperature : Warm MARC ALMANZAR RN - 07/12/2011 5:53 CDT Neuro Reassess Neuro Patient Stated Symptoms : Dizziness, Drowsiness, Visual changes Level of Consciousness : Drowsy Orientation : Oriented x 3 Characteristics of Speech : Appropriate for age Gait : Unsteady MARC ALMANZAR RN - 07/12/2011 5:53 CDT GI Reassess GI Patient Stated Symptoms : Abdominal pain Abdomen Description : Symmetric MARC ALMANZAR RN - 07/12/2011 5:53 CDT Integ Reassess Integ Note : old bruises from previous IV sites Integumentary Patient Stated Symptoms : Bruising MARC ALMANZAR RN - 07/12/2011 5:53 CDT Source: [facility] Document Id: [id number] CDT!33 Conversion, Historical Provider Ser - 07/12/2011 4:56 AM CDT CHRISTINE - Headache Document Contains Addenda Patient: JEANNINE OWENS Age: 31 years Sex: Female : 1980 Author: ALEXIS JHAVERI MD Attachments: None Associated Diagnosis: Migraine headache Basic Information Additional information:: Chief Complaint from Nursing Triage Note : Chief Complaint Description. 07/12/2011 4:47 CDT Chief Complaint Description pt had some n/v, sob, and headache last week and continuing into this week. Pt states she's feeling sick to her stomach now but denies SOB. pt states apneic episodes It sounds if she was agitated the so-called apneic episode was brief and didnt cause cyanosis it did not sound significant she was very agitated and stressed when she first presented and would hardly answer us due to stress History of Present Illness The patient presents with headache and abdominal pain. The degree at maximum was severe. The degree at present is severe. The relieving factor is none. Risk factors consist of none. Prior episodes: frequent. Therapy today: none. Preceding symptoms: none. Associated symptoms: nausea and denies vomiting. Review of Systems Constitutional symptoms: no fever Skin symptoms: no rash Respiratory symptoms: no shortness of breath Health Status Allergies: . Allergic Reactions (Selected) NKA Past Medical/ Family/ Social History Medical history: Medical history. Resolved acute pyelonephritis (590.10): Onset in 2010 at 30 years. Resolved. Bilateral tubal ligation (490348885): Onset in 2008 at 28 years. Resolved. delivery NOS (669.71): Onset in 2001 at 21 years. Resolved. Headache Migraine (346.90): Onset in 2000 at 20 years. Resolved. section (81411520): Onset in 1999 at 19 years. Resolved. Appendectomy (684895973): Onset in 1997 at 17 years. Resolved. Surgical history: Surgical history. No active procedure history items have been selected or recorded. Family history: Family history. Hypertension Father Physical Examination Vital signs: Vital Signs. 07/12/2011 6:00 CDT Apical Heart Rate 107 /min HI Systolic Blood Pressure 138 mmHg Diastolic Blood Pressure 98 mmHg >HHI BP Location Right upper 07/12/2011 5:30 CDT Apical Heart Rate 114 /min HI Systolic Blood Pressure 140 mmHg Diastolic Blood Pressure 82 mmHg BP Location Right upper 07/12/2011 5:06 CDT Apical Heart Rate 96 /min Systolic Blood Pressure 133 mmHg Diastolic Blood Pressure 95 mmHg >HHI BP Location Right upper 07/12/2011 4:47 CDT Temperature Core 37.1 C Apical Heart Rate 91 /min Respiratory Rate 16 /min SpO2 100 % Systolic Blood Pressure 126 mmHg Diastolic Blood Pressure 97 mmHg >HHI Mean Arterial Pressure 107 mmHg BP Location Right upper General: Severe distress. anxious. distress was due to anxiety and stress. Skin: Warm. dry. Head: Atraumatic Respiratory: Lungs are clear to auscultation. respirations are non-labored. Gastrointestinal: Soft. Nontender. Neurological: Alert and oriented to person, place, time, and situation. No focal neurological deficit observed. tells us that the tachycardia is not new and her Drs havent found any serious cause for it She was almost overwhelmed by stress whe first seen and she would hardly speak to us Medical Decision Making OrdersLaunch Orders, Pharmacy: NS 1000 mL Bolus and Continuous 1000 mL (Order Processing): 100 mL/hr, IV Reglan (Order Processing): 20 mg, IV, Once Dilaudid (Order Processing): 1 mg, IV, q30min, PRN, PainLaunch Orders. Pharmacy: Benadryl (Order Processing): 50 mg, IV, Once Benadryl (Order Processing): 50 mg, IM, Once Reexamination/ Reevaluation received 2 mgf haldol because reglan and compazine not available Stopped headache abdomen is not tender no guarding no rebound The headache is gone now abdomen doesnt hurt not nauseated smiling and happy looks normal very much improved from her initial presentation Reglan is out of supply, she was given 2 mg IV haldol as alternative Impression and Plan Diagnosis Migraine headache (Discharge, Emergency medicine, Medical) [address]79 Discharge plan Prescriptions: Prescription Change Management Lead. Pharmacy: Reglan 10 mg oral tablet (Ordered): 20 mg, 2 tab(s), PO, Once, 2 tablets one time for each headache,10 tab(s) Percocet 5/325 oral tablet (Ordered): 1 to 2 tablets, PO, q6hr, 15 tab(s) Follow up with: ROYA BLACK Within As Needed We gave you 2 mg haldol IV and 50 mg benadryl for the Headache We gave you dilaudid 2 mg for the belly pain The [facility] I mentioned is the [facility] it's on the web. Notes: she did not have any irregular breathing while here. She was very stressed on arrival i DONT THINK SHE had a true apneic episode. Addendum She has plans to discuss this event with Dr Gonzalez this week Electronically Signed By: ALEXIS JHAVERI MD On: 07/13/2011 05:25 PM Modified by and Electronically Signed by: ALEXIS JHAVERI MD On: 07/12/2011 05:02 AM Source: [facility] Document Id: [id number] Conversion, Historical Provider Ser - 07/12/2011 4:55 AM CDT ED Treatments and Procedures ED Treatments and Procedures Entered On: 07/12/2011 6:26 CDT Performed On: 07/12/2011 4:55 CDT by MARC ALMANZAR RN Peripheral IV Peripheral IV Assess/Intervention Grid Peripheral IV #1 IV Activity : Start Number of Attempts : 1 Date of Insertion : 07/12/2011 CDT IV Site : Hand Laterality : Left Catheter Size : 20 Catheter Type : Protective Site Condition : No complications Drainage Description : None Infiltration Score : 0 Phlebitis Score : 0 Primary Tubing Changed : 07/12/2011 CDT Dressing/ Activity : Dry, Transparent Flow/ Patency : No complications MARC ALMANZAR RN - 07/12/2011 6:25 CDT [facility] Document Id: [id number] CDT!18 documented in this encounter Miscellaneous Notes Miscellaneous - Conversion, Historical Provider Ser - 07/12/2011 6:52 AM CDT Valuables/Belongings Valuables/Belongings Entered On: 07/12/2011 7:02 CDT Performed On: 07/12/2011 6:52 CDT by MARC ALMANZAR RN Valuables/Belongings Valuables/Belongings Grid Valuables with Patient Clothes, Patient Valuables : Pants, Shirt Monetary Items : Purse MARC ALMANZAR RN - 07/12/2011 7:02 CDT Room Orientation/Facility Policy Reviewed : Yes Home Medication Disposition : None brought in with patient MARC ALMANZAR RN - 07/12/2011 7:02 CDT Source: [facility] [employer] Document Id: [id number] CDT!8 Miscellaneous - Conversion, Historical Provider Ser - 07/12/2011 4:41 AM CDT Facility Charge Ticket Facility Charge Ticket Entered On: 07/19/2011 11:16 CDT Performed On: 07/12/2011 4:41 CDT by REGINA MELLO Facility Charge TVL Level for Facility Charge Ticket : Level 4 Mode of Arrival ED : Private vehicle [facility] Mode of Arrival Interpreted : Standard [facility] Process Management : None [facility] Order Management : None 30 Minutes Critical Care : No [facility] Nursing Assessment : Triage and 3-5 nursing assessments [facility] Disposition : Discharge [facility] Total Points with Diagnosis Control : 8 [facility] Visit Level : 26194 Level 4 REGINA MELLO - 07/19/2011 11:16 CDT [facility] Document Id: [id number] CDT!12 documented in this encounter Plan of Treatment Not on filedocumented as of this encounter Visit Diagnoses Not on filedocumented in this encounter
--- OUTSIDE RECORDS SUMMARY | 2021-12-10 15:40 | XMS_ITS | Encounter Summary ---
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
--- OUTSIDE RECORDS SUMMARY | 2021-12-10 15:40 | XMS_ITS | Encounter Summary ---
:1980 Author Organization [facility] Address [address] [place] [address] Care Team Providers Name Role Phone Unavailable Primary Care Provider Unavailable Encounter Details Date Type Department Care Team Description 07/02/[address] [facility] ED Ev Jeffrey M .D. 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 - 07/02/2011 10:17 PM CST ED Discharge Instructions [address] [address] or [phone] Name: DENICE OWENS Date of : 1980 12:00 AM Visit Date: 07/02/2011 7:52 PM Address: [id number] [place] [phone] Primary Care Provider: ROYA BLACK MD IMPORTANT: [facility] in [place] would like to thank you for allowing us to assistyou with your healthcare needs. The following includes patient education materials and information regarding your injury/illness. Chief Complaint: Headache - Recurrent; Tachycardia; rapid heart rate Follow-Up Instructions: With: Address: When: ROYA BLACK [address] [facility] [place] [phone] Business (1) Within As Needed Comments: Call for follow up appointment Patient Education Materials: [id number] MEDICATION: CATAPRES You have been prescribed Catapres (generic: clonidine) to control high blood pressure. It is also used to prevent migraine headaches and to prevent narcotic withdrawal symptoms. It is available in pills and as a skin patch. DIRECTIONS FOR USE: If you were given this medicine to treat high blood pressure, measure your own blood pressure every few days to check your response. You may measure your own blood pressure at home, or have someone do it for you at a pharmacy, clinic or your doctor's office. Notify your doctor if your pressure does not begin to improve within one week; or if the blood pressure goes below 110/60 on two readings in a row (this is too low). The goal for most persons is to get their blood pressure below 140/90. If you were told to take this medicine every day, do not skip doses or suddenly stop taking this medicine since this might make your condition worse. Talk to your doctor before stopping this medicine so you can reduce the dose gradually. This medicine must be taken at regular intervals on a daily basis to be effective. Take the medicineas directed. If the label says EVERY 12 HOURS that means twice a day. Take the last dose of the day at bedtime. PATCH: -- Find an area of unbroken skin without hair on your upper arm or chest and clean it with soap and water, then dry it completely. -- Remove the plastic strip from the backside of the patch and apply the patch firmly. If the patch loosens, use adhesive tape to hold it in place. -- Change the patch as directed by your doctor (usually every seven days). -- Fold used patches in half with the sticky side together, so that others will not come in contact with the medicine. PILLS: -- Take the medicine by mouth with or without food. WHAT TO WATCH FOR: POSSIBLE SIDE EFFECTS: Dizziness if you stand up too fast --> (Get up more slowly). Drowsiness, dry mouth, constipation, headache, itching or skin irritation from the patch --> (Contact your doctor if any of these symptoms persist or become severe). *--------- IMPORTANT MEDICAL CONDITIONS: Before starting this medicine, be sure your doctor knows if you have any of the following conditions: -- or breast feeding DRUG INTERACTIONS: Before starting this medicine, be sure your doctor knows if you are taking any ofthe following drugs: -- Diuretics (water pills), other blood pressure medicines -- Tricyclic anti-depressants [Elavil (amitriptyline), Norpramin (desipramine) and others] -- Beta Blockers [Corgard (nadolol), Tenormin (atenolol), Trandate (labetalol), Lopressor (metoprolol), Inderal (propranolol) and others] WARNING: -- DO NOT DRIVE, ride a bicycle or operate dangerous equipment while you are taking this medicine until you know how it will affect you. [NOTE: This information topic may not include all directions, precautions, medical conditions, drug/food interactions and warnings for this drug. Check with your doctor, nurse or pharmacist for any questions that you may have.] ?? [id number] [employer], [address] [place] [address]. All rights reserved. This information is not intended as a substitute for professional medical care. Always follow your healthcare professional's instructions. [id number] HIGH BLOOD PRESSURE -- to be confirmed [No tx] Your blood pressure was higher today than normal. Sometimes anxiety or pain can cause a temporary rise in blood pressure that later returns to normal. If your blood pressure is high on one measurement,this does not mean that you have hypertension (a chronic illness). However, you must have your bloodpressure measured again within the next few days to find out if its still high. A normal blood pressure is 120/80 or less. The first (top) number is the systolic pressure. The second (bottom) number is the diastolic pressure. Hypertension exists when either the top number is 140 or higher, OR the bottom number is 90 or higher on repeated measurements. Blood pressure in the range of 120-140 (systolic) or 80-89 (diastolic) is considered pre-hypertension. This means your are at risk for getting hypertension. You should have regular blood pressure checks to be sure your blood pressure is not rising. HOME CARE: 1. Measure your blood pressure on 3 different days and write down the results. This can be done at your doctor's office or this facility. Some pharmacies and grocery stores offer automated blood pressure machines for your use. FOLLOW UP: If your blood pressure is high (over 120/80) on 2 out of 3 days, you will need to follow up with your doctor for further evaluation and treatment. DO NOT PUT THIS OFF! Untreated high blood pressure increases the risk for heart attack and stroke. It is a treatable condition. GET PROMPT MEDICAL ATTENTION if any of the following occur: ?? Chest pain or shortness of breath ?? Severe headache ?? Throbbing or rushing sound in the ears ?? Nosebleed ?? Sudden severe abdominal pain ?? Extreme drowsiness, confusion or fainting ?? Dizziness or vertigo (dizziness with spinning sensation) ?? Weakness of an arm or leg or one side of the face Difficulty with speech or vision ?? [id number] [employer], [address] [place] [address], [place] [address]. All rights reserved. This information is not intended as a substitute for professional medical care. Always follow your healthcare professional's instructions. [id number] TACHYCARDIA:P.A.T. (P.S.V.T.) P.A.T. stands for Paroxysmal Atrial Tachycardia (also called P.S.V.T. or Paroxysmal Supraventricular Tachycardia). This means sudden onset of fast heart beating. This may feel like your heart is racing or pounding. Because of the suddenness of onset, it is often scary but is usually not a dangerous condition. Episodes may last seconds, minutes or hours. This can occur in otherwise healthy persons who have used excessive amounts of stimulants such as tobacco or caffeine (coffee, tea, cola or medicines containing caffeine). Also certain mhmg-qrf-dprdlavqsmh & sinus remedies, as well as diet pills and some herbal supplements can over-stimulate the heart. Obviously, cocaine and amphetamine are the most powerful heart stimulants and must be avoided. Overactive thyroid and some types of heart valve disorders can also cause P.A.T. If your doctor suspects this, tests may be done to find out if this is the cause in your case. HOME CARE: 1) Rest today and resume your normal activities as soon as you are feeling back to normal. Sometimesa prolonged episode of P.A.T. can leave you feeling tired and weak for a while. 2) To prevent a recurrence, avoid ALL the stimulants mentioned above. If you have trouble eliminating coffee, switch to decaf. Smokers should make every effort to stop or at least switch to a filtered,low-nicotine type of cigarette while you look for a stop-smoking program. 3) If another episode of P.A.T. occurs, lie down and try to remain calm. These spells usually stop by themselves within a few minutes. FOLLOW UP with your doctor within the week or as instructed by our staff. [NOTE: If you had an X-ray or EKG (cardiogram), it will be reviewed by a specialist. You will be notified of any new findings that may affect your care.] GET PROMPT MEDICAL ATTENTION if any of the following occur: -- Chest, shoulder, arm, neck or back pain -- Shortness of breath -- Weakness -- Fainting or light-headedness -- Fast or pounding heartbeat that lasts over 20 minutes ?? [id number] [employer], [address] [place] [address]. All rights reserved. This information is not intended as a substitute for professional medical care. Always follow your healthcare professional's instructions. ED Tests and Procedures: Order Status Comprehensive Metabolic Panel Completed Urinalysis with Microscopic Ordered EKG-Lab. InProcess C-Reactive Protein Completed Discharge Prescriptions & Home Medications: Medication/Strength Dose Route Frequency Indications/Special Instructions/Comments lorazepam (Ativan 0.5 mg oral tablet) 0.5 mg Oral three times a day as needed for Anxiety Comment: Attention: If you have any medications [...] to take those medications. DENICE OWENS or anitha has reviewed the home [...] home medications as previously prescribed by [facility] IMPORTANT: We examined and treated you [...] nurse or physician. Patient Signature or Responsible Constitution Party/Relationship Date/Time Provider Signature Date/Time Medication Reconciliation: Reconciliation is a process of identifying the most accurate list of all medications a patient is taking - including name, dosage, frequency, and route - and using this list to provide to the patient information about how to take those medications. DENICE OWENS or anitha has reviewed the home [...] nurse or physician. Patient Signature or Responsible Constitution Party/Relationship Date/Time Provider Signature Date/Time This document has images extracted. Please consider using [employer] for all your patient education needs. Source: [facility] [employer] Document Id: [id number] AND BEVERAGE ASSISTANT Priya Ríos R.N. - 07/02/2011 10:17 PM CST ED Depart Summary [facility] Emergency Department Clinical Discharge Summary PERSON INFORMATION Name DENICE OWENS Age 31 Years 1980 12:00 AM Sex Female Language Indian PCP ROYA BLACK MD Marital Status Visit Id Visit Reason Headache - Recurrent; Tachycardia; rapid heart rate Specialty Enc Type Emergency Med Service Emergency Medicine Referred by Track Group [facility] ED/UC Discharge 07/02/2011 10:17 PM Tracking Id [id number] Checkout 07/02/2011 10:17 PM Checkin 07/02/2011 7:52 PM Acuity 3 -Urgent Dispo Type * Discharged to Home or Self Care Arrival 07/02/2011 7:52 PM Reg Status Complete LOS 000 02:25 Address: [address] [place] [phone] Comment: PROVIDER INFORMATION Provider Role Provider Contact Time PRIYA RÍOS TRAINING DESIGNER Nurse 07/02/11 19:56 EV JEFFREY MD ED Provider 07/02/11 20:13 DIAGNOSIS Migraine headache; Hypertension Comment: PATIENT EDUCATION INFORMATION Instructions: CLONIDINE; HYPERTENSION, To Be Confirmed; PAT (P.A.T.) Follow up: With: Address: When: ROYA BLACK [address] [place] [address] [place] [phone] Business (1) Within As Needed Comments: Call for follow up appointment Source: [facility] [employer] Document Id: [id number] AND BEVERAGE ASSISTANT documented in this encounter Nursing Notes Priya Ríos R.N. - 07/02/2011 9:12 PM CST ED Pain Assessment ED Pain Assessment Entered On: 07/02/2011 21:12 FOOD AND BEVERAGE ASSISTANT Performed On: 07/02/2011 21:12 FOOD AND BEVERAGE ASSISTANT by PRIYA RÍOS RN Pain Assessment Pain Symptoms : Yes PRIYA RÍOS RN - 07/02/2011 21:12 FOOD AND BEVERAGE ASSISTANT Pain Pain Assessment Grid Pain 1 Location : Head Intensity : 2 PRIYA RÍOS RN - 07/02/2011 21:12 FOOD AND BEVERAGE ASSISTANT Source: [facility] [employer] Document Id: [id number] FOOD AND BEVERAGE ASSISTANT!8 AND BEVERAGE ASSISTANT Priya Ríos R.N. - 07/02/2011 7:55 PM CST ED Primary Assessment ED Primary Assessment Entered On: 07/02/2011 20:19 FOOD AND BEVERAGE ASSISTANT Performed On: 07/02/2011 19:55 FOOD AND BEVERAGE ASSISTANT by PRIYA RÍOS RN Reason For Visit Problems(Active) Anxiety disorder NOS Name of Problem: Anxiety disorder NOS ; Onset Date: 07/01/2011 ; Recorder: LEEANN SANDERS MD; Confirmation: Confirmed ; Classification: Medical ; Code: 1231 ; Last Updated: 07/01/2011 5:45 FOOD AND BEVERAGE ASSISTANT ; Life Cycle Status: Active ; Responsible Provider: LEEANN SANDERS MD; Vocabulary: ICD-9-CM Palpitation Name of Problem: Palpitation ; Onset Date: 07/01/2011 ; Recorder: LEEANN SANDERS MD; Confirmation: Confirmed ; Classification: Medical ; Code: 1231 ; Last Updated: 07/01/2011 6:47 FOOD AND BEVERAGE ASSISTANT ; Life Cycle Status: Active ; Responsible Provider: LEEANN SANDERS MD; Vocabulary: ICD-9-CM Diagnoses(Active) Tachycardia Date: 07/02/2011 ; Diagnosis Type: Reason For Visit ; Confirmation: Complaint of ; Clinical Dx: Tachycardia ; Classification: Medical ; Clinical Service: Emergency medicine ; Code: PNED ; Probability: 0 ; Diagnosis Code: [id number] Triage Chief Complaint Description : Presents to ER with fast heart rate. States was in the 155 range earlier yefri 120's Information Given By : Patient, Spouse Accompanied By : Spouse Mode of Arrival ED : Private vehicle Track : Medical Languages : Indian Vital Signs Assessed : Yes RPIYA RÍOS RN - 07/02/2011 20:17 FOOD AND BEVERAGE ASSISTANT Vital Signs Temperature Core : 37.4C(Converted to: 99.3DegF) Apical Heart Rate : 124/min (HI) Respiratory Rate : 20/min Systolic Blood Pressure : 149mmHg (HI) Diastolic Blood Pressure : 119mmHg (>HHI) NIBP Mean : 129mmHg BP Location : Right upper extremity SpO2 : 100% Oxygen Saturation Monitoring Frequency : Intermittent Oxygen Therapy : Room air PRIYA RÍOS RN - 07/02/2011 20:17 FOOD AND BEVERAGE ASSISTANT Pain Assessment Pain Symptoms : No PRIYA RÍOS RN - 07/02/2011 20:17 FOOD AND BEVERAGE ASSISTANT HORACIO HORACIO Level 1 : No HORACIO Level 2 : No HORACIO Level 3 : Many Vital Signs HORACIO : No PRIYA RÍOS RN - 07/02/2011 20:17 FOOD AND BEVERAGE ASSISTANT DCP GENERIC CODE Tracking Acuity : 3 -Urgent Tracking Group : [facility] ED/ PRIYA RÍOS RN - 07/02/2011 20:17 FOOD AND BEVERAGE ASSISTANT Allergy Allergies (Active) NKA Estimated Onset Date: Unspecified ; Created By: BRITTANY WALTON; Reaction Status: Active ; Category: Drug ; Substance: NKA ; Type: Allergy ; Updated By: BRITTANY WALTON; Reviewed Date: 07/01/2011 9:29 FOOD AND BEVERAGE ASSISTANT Respiratory Airway : Patent Respirations : Unlabored Respiratory Pattern : Regular PRIYA RÍOS RN - 07/02/2011 20:17 FOOD AND BEVERAGE ASSISTANT Cardiovascular Heart Rhythm : Regular Skin Color : Normal for ethnicity Skin Description : Dry Skin Temperature : Warm PRIYA RÍOS RN - 07/02/2011 20:17 FOOD AND BEVERAGE ASSISTANT Neurological Level of Consciousness : Alert Orientation : Oriented x 3 Characteristics of Speech : Appropriate for age Neuro Patient Stated Symptoms : None PRIYA RÍOS RN - 07/02/2011 20:17 FOOD AND BEVERAGE ASSISTANT ED Psychosocial Affect/Behavior : Calm, Cooperative, Appropriate Domestic Abuse Concerns : None PRIYA RÍOS RN - 07/02/2011 20:17 FOOD AND BEVERAGE ASSISTANT Gastrointestinal Nutrition ED : Adequate PRIYA RÍOS RN - 07/02/2011 20:17 FOOD AND BEVERAGE ASSISTANT Musculoskeletal Fall Prevention Education Provided : Yes PRIYA RÍOS RN - 07/02/2011 20:17 FOOD AND BEVERAGE ASSISTANT Social Habits Tobacco Use/Currently Using : No Tobacco Use/Last 12 months : No Smoking Status : Unknown if ever smoke PRIYA RÍOS RN - 07/02/2011 20:17 FOOD AND BEVERAGE ASSISTANT Tobacco Use Grid Last Use : never PRIYA RÍOS RN - 07/02/2011 20:17 FOOD AND BEVERAGE ASSISTANT Alcohol Use Grid Alcohol Use : No PRIYA RÍOS RN - 07/02/2011 20:17 FOOD AND BEVERAGE ASSISTANT Recreational Drug Use Grid Drug Use : None PRIYA RÍOS RN - 07/02/2011 20:17 FOOD AND BEVERAGE ASSISTANT Source: [employer] Document Id: [id number] FOOD AND BEVERAGE ASSISTANT!62 AND BEVERAGE ASSISTANT documented in this encounter ED Notes Priya Ríos R.N. - 07/02/2011 10:17 PM CST ED Treatments and Procedures ED Treatments and Procedures Entered On: 07/02/2011 22:17 FOOD AND BEVERAGE ASSISTANT Performed On: 07/02/2011 22:17 FOOD AND BEVERAGE ASSISTANT by PRIYA RÍOS RN Peripheral IV Peripheral IV Assess/Intervention Grid Peripheral IV #1 IV Activity : Discontinue Number of Attempts : 2 Date of Insertion : 07/02/2011 FOOD AND BEVERAGE ASSISTANT IV Site : Forearm Laterality : Left Catheter Size : 20 Catheter Type : Protective PRIYA RÍOS RN - 07/02/2011 22:17 FOOD AND BEVERAGE ASSISTANT Source: [employer] Document Id: [id number] FOOD AND BEVERAGE ASSISTANT!11 AND BEVERAGE ASSISTANT Priya Ríos R.N. - 07/02/2011 10:15 PM CST ED Disposition Summary ED Disposition Summary Entered On: 07/02/2011 22:16 FOOD AND BEVERAGE ASSISTANT Performed On: 07/02/2011 22:15 FOOD AND BEVERAGE ASSISTANT by PRIYA RÍOS RN ED Disposition Summary Accompanied By : Spouse Mode of Discharge : Ambulatory Transportation : Private vehicle Discharge From ED With : Home Med List Printed Discharge Instructions Given to Patient : Yes Patient Status at Discharge from ED : Improved PRIYA RÍOS RN - 07/02/2011 22:15 FOOD AND BEVERAGE ASSISTANT Source: [employer] Document Id: [id number] FOOD AND BEVERAGE ASSISTANT!8 AND BEVERAGE ASSISTANT Priya Ríos R.N. - 07/02/2011 10:14 PM CST ED Education ED Education Entered On: 07/02/2011 22:15 FOOD AND BEVERAGE ASSISTANT Performed On: 07/02/2011 22:14 FOOD AND BEVERAGE ASSISTANT by PRIYA RÍOS RN Education ED Education Grid Topics : Diagnostic results, Equipment, Importance of follow-up visits, Medication, Plan of care Individuals Taught : Patient, Spouse Barriers to Learning : None evident Teaching Method : Explanation Teaching Evaluation : Verbalizes understanding PRIYA RÍOS RN - 07/02/2011 22:14 FOOD AND BEVERAGE ASSISTANT Source: [employer] Document Id: [id number] FOOD AND BEVERAGE ASSISTANT!9 AND BEVERAGE ASSISTANT Ev Jeffrey M.D. - 07/02/2011 8:26 PM CST Tachycardia, Headache - Recurrent Patient: DENICE OWENS Age: 31 years Sex: Female : 1980 Author: EV JEFFREY MD Attachments: None Associated Diagnosis: Migraine headache; Hypertension Basic Information Additional information:: Chief Complaint from Nursing Triage Note : Chief Complaint Description. 07/02/2011 19:55 FOOD AND BEVERAGE ASSISTANT Chief Complaint Description Presents to ER with fast heart rate. States was in the 155 range earlier yefri 120's 07/01/2011 5:28 FOOD AND BEVERAGE ASSISTANT Chief Complaint Description WHILE GETTING READY THIS MORINIG FELT DIZZY AND TINGLY IN THE SHOWER. FEELING PASSED. IN THE CAR ABOUT 0440 HAD CHEST PAIN, RACING HEART, AND HER BODY FELT TINGLY. IS DOCTORING FOR THE RACING HEART. History of Present Illness The patient presents with headache andPatient with recurrent migraine headaches but this right sidedheadache is worse than normal. She is also having sudden episode of fast heart beating She has been having these episodes of recurrent fast heart beating,elevated blood pressure, and anxious feeling. She is awaiting cardiology consultation as well as testing for pheochromocytoma.. The onset was 1 hours ago. The course/duration of symptoms is constant. Location: Right frontal temporal retro-orbital. Radiating pain: none. The character of symptoms is sharp, pressure and throbbing. The degree at onset was minimal. The degree at maximum was severe. The degree at present is severe. Exacerbating factors c onsist of light, noise exertion. The relieving factor is none. Risk factors consist of none. Prior episodes: frequent. Therapy today: prescription medications. Preceding symptoms: none. Associated symptoms: nausea and numbness of the left foot.. The patient presents with heart racing and palpitations. The onset was 1 hours ago, abrupt and at rest. The course/duration of symptoms is constant. Character of symptoms fast. The degree at onset was severe. The degree at present is severe. Exacerbating factors consist of none. The relieving factoris rest. Risk factors consist of none. Prior episodes: frequent. Therapy today: none. Associated symptoms: nausea. Additional history: none. Review of Systems Constitutional symptoms: Negative except as documented in HPI. Skin symptoms: Negative except as documented in HPI. Eye symptoms: Negative except as documented in HPI. ENMT symptoms: Negative except as documented in HPI. Respiratory symptoms: Negative except as documented in HPI. Cardiovascular symptoms: Negative except as documented in HPI. Gastrointestinal symptoms: Negative except as documented in HPI. Genitourinary symptoms: Negative except as documented in HPI. Musculoskeletal symptoms: Negative except as documented in HPI. Neurologic symptoms: Negative except as documented in HPI. Psychiatric symptoms: Negative except as documented in HPI. Endocrine symptoms: Negative except as documented in HPI. Hematologic/Lymphatic symptoms: Negative except as documented in HPI. Allergy/immunologic symptoms: Negative except as documented in HPI. Additional review of systems information:All other systems reviewed and otherwise negative. Health Status Allergies: . Allergic Reactions (Selected) NKA Medications: . Prescriptions and Home Medications lorazepam (Ativan 0.5 mg oral tablet), 0.5 mg, 1 tab(s), PO, 3xDay, 21 tab(s), PRN: Anxiety Past Medical/ Family/ Social History Medical history: Medical history. Resolved acute pyelonephritis (590.10): Onset in 2010 at 30 years. Resolved. Bilateral tubal ligation ([id number]): Onset in 2008 at 28 years. Resolved. delivery NOS (669.71): Onset in 2001 at 21 years. Resolved. Headache Migraine (346.90): Onset in 2000 at 20 years. Resolved. section ([id number]): Onset in 1999 at 19 years. Resolved. Appendectomy (895411021): Onset in 1997 at 17 years. Resolved. Surgical history: Surgical history. No active procedure history items have been selected or recorded. Family history: Family history. Hypertension Father Problem list: . All Problems Anxiety disorder NOS / 300.00 / Confirmed Palpitation / 785.1 / Confirmed Physical Examination Vital signs: Vital Signs, 07/02/2011 19:55 FOOD AND BEVERAGE ASSISTANT Temperature Core 37.4 C Apical Heart Rate 124 /min HI Respiratory Rate 20 /min SpO2 100 % Systolic Blood Pressure 149 mmHg HI Diastolic Blood Pressure 119 mmHg >HHI Mean Arterial Pressure 129 mmHg BP Location Right upper 07/01/2011 9:30 FOOD AND BEVERAGE ASSISTANT Temperature Core 37.2 C Peripheral Pulse Rate 80 /min Systolic Blood Pressure 126 mmHg Diastolic Blood Pressure 84 mmHg Mean Arterial Pressure 98 mmHg BP Location Right upper Blood Pressure Cuff Size Regular 07/01/2011 9:00 FOOD AND BEVERAGE ASSISTANT Heart Rate Monitored 98 /min Systolic Blood Pressure 147 mmHg HI Diastolic Blood Pressure 102 mmHg >HHI Mean Arterial Pressure 117 mmHg 07/01/2011 8:45 FOOD AND BEVERAGE ASSISTANT Heart Rate Monitored 106 /min HI Systolic Blood Pressure 151 mmHg HI Diastolic Blood Pressure 105 mmHg >HHI Mean Arterial Pressure 120 mmHg 07/01/2011 8:30 FOOD AND BEVERAGE ASSISTANT Heart Rate Monitored 95 /min Systolic Blood Pressure 140 mmHg Diastolic Blood Pressure 101 mmHg >HHI Mean Arterial Pressure 114 mmHg 07/01/2011 8:15 FOOD AND BEVERAGE ASSISTANT Heart Rate Monitored 114 /min HI Systolic Blood Pressure 139 mmHg Diastolic Blood Pressure 101 mmHg >HHI Mean Arterial Pressure 114 mmHg 07/01/2011 8:00 FOOD AND BEVERAGE ASSISTANT Heart Rate Monitored 117 /min HI Systolic Blood Pressure 139 mmHg Diastolic Blood Pressure 101 mmHg >HHI Mean Arterial Pressure 114 mmHg 07/01/2011 7:45 FOOD AND BEVERAGE ASSISTANT Heart Rate Monitored 117 /min HI Systolic Blood Pressure 136 mmHg Diastolic Blood Pressure 99 mmHg >HHI Mean Arterial Pressure 111 mmHg 07/01/2011 7:30 FOOD AND BEVERAGE ASSISTANT Heart Rate Monitored 93 /min Systolic Blood Pressure 142 mmHg HI Diastolic Blood Pressure 97 mmHg >HHI Mean Arterial Pressure 112 mmHg 07/01/2011 7:15 FOOD AND BEVERAGE ASSISTANT Heart Rate Monitored 98 /min Systolic Blood Pressure 145 mmHg HI Diastolic Blood Pressure 101 mmHg >HHI Mean Arterial Pressure 116 mmHg 07/01/2011 7:00 FOOD AND BEVERAGE ASSISTANT Apical Heart Rate 100 /min Respiratory Rate 20 /min SpO2 100 % Systolic Blood Pressure 146 mmHg HI Diastolic Blood Pressure 103 mmHg >HHI BP Location Right upper 07/01/2011 6:45 FOOD AND BEVERAGE ASSISTANT Apical Heart Rate 104 /min HI SpO2 100 % Systolic Blood Pressure 146 mmHg HI Diastolic Blood Pressure 110 mmHg >HHI BP Location Right upper 07/01/2011 6:30 FOOD AND BEVERAGE ASSISTANT Apical Heart Rate 94 /min Systolic Blood Pressure 144 mmHg HI Diastolic Blood Pressure 105 mmHg >HHI BP Location Right upper 07/01/2011 6:15 FOOD AND BEVERAGE ASSISTANT Apical Heart Rate 95 /min Respiratory Rate 24 /min HI Systolic Blood Pressure 133 mmHg Diastolic Blood Pressure 107 mmHg >HHI BP Location Right upper 07/01/2011 6:08 FOOD AND BEVERAGE ASSISTANT Apical Heart Rate Date\Time Correction SpO2 Date\Time Correction Systolic Blood Pressure Date\Time Correction Diastolic Blood Pressure Date\Time Correction BP Location Date\Time Correction 07/01/2011 6:00 FOOD AND BEVERAGE ASSISTANT Apical Heart Rate 94 /min SpO2 100 % Systolic Blood Pressure 127 mmHg Diastolic Blood Pressure 97 mmHg >HHI BP Location Right upper 07/01/2011 5:45 FOOD AND BEVERAGE ASSISTANT Apical Heart Rate 102 /min HI (Modified) SpO2 100 % (Modified) Systolic Blood Pressure 129 mmHg (Modified) Diastolic Blood Pressure 99 mmHg >HHI (Modified) BP Location Right upper (Modified) 07/01/2011 5:30 FOOD AND BEVERAGE ASSISTANT Apical Heart Rate 98 /min Systolic Blood Pressure 131 mmHg Diastolic Blood Pressure 90 mmHg HI BP Location Right upper 07/01/2011 5:28 FOOD AND BEVERAGE ASSISTANT Temperature Core 36.6 C Apical Heart Rate 112 /min HI Respiratory Rate 24 /min HI SpO2 100 % Systolic Blood Pressure 142 mmHg HI Diastolic Blood Pressure 109 mmHg >HHI Mean Arterial Pressure 120 mmHg BP Location Right upper Measurements, 07/01/2011 9:30 FOOD AND BEVERAGE ASSISTANT Height 166 cm Dosing Weight 54.80 kg Actual Weight 54.8 kg Body Mass Index 19.89 kg/m2 BSA 1.59 07/01/2011 5:28 FOOD AND BEVERAGE ASSISTANT Height 166 cm Dosing Weight 55 kg Estimated Weight 55 kg Oxygen saturation Oxygen Therapy & Oxygenation Information. 07/02/2011 19:55 FOOD AND BEVERAGE ASSISTANT Oxygen Therapy Room air Oxygen Saturation Monitoring Frequency Intermittent 07/01/2011 7:00 FOOD AND BEVERAGE ASSISTANT Oxygen Therapy Room air 07/01/2011 6:45 FOOD AND BEVERAGE ASSISTANT Oxygen Therapy Room air 07/01/2011 6:08 FOOD AND BEVERAGE ASSISTANT Oxygen Therapy Date\Time Correction 07/01/2011 6:00 FOOD AND BEVERAGE ASSISTANT Oxygen Therapy Room air 07/01/2011 5:45 FOOD AND BEVERAGE ASSISTANT Oxygen Therapy Room air (Modified) 07/01/2011 5:28 FOOD AND BEVERAGE ASSISTANT Oxygen Therapy Room air General: Alert. mild distress. anxious. Skin: Warm. dry. pink. intact. no pallor. no rash. normal for ethnicity. Head: Normocephalic. atraumatic. Neck: Supple. trachea midline. no tenderness. no JVD. Eye: Pupils are equal, round and reactive to light. extraocular movements are intact. normal conjunctiva. vision unchanged. Ears, nose, mouth and throat: Tympanic membranes clear. Oral mucosa moist. No pharyngeal erythema orexudate. Cardiovascular: No murmur. Normal peripheral perfusion. No edema. Tachycardia. Respiratory: Lungs are clear to auscultation. respirations are non-labored. breath sounds are equal.Symmetrical chest wall expansion. Chest wall: No tenderness. No deformity. Back: Nontender. Normal range of motion. Normal alignment. no step-offs. Musculoskeletal: Normal ROM. normal strength. no tenderness. no swelling. no deformity. Gastrointestinal: Soft. Nontender. Non distended. Normal bowel sounds. No organomegaly. Genitourinary Neurological: Alert and oriented to person, place, time, and situation. No focal neurological deficit observed. CN II-XII intact. normal sensory observed. normal motor observed. normal speech observed.normal coordination observed. Lymphatics: No lymphadenopathy Psychiatric: Cooperative. appropriate mood & affect. normal judgment. non-suicidal. Medical Decision Making Differential Diagnosis:: Tachycardia, RULE OUT PHEOCHROMOCYTOMA. Differential Diagnosis:Migraine, tension headache. Documents reviewed:Emergency department nurses' notes. OrdersLaunch Orders, Laboratory: CRP (Order Processing): Stat, 07/02/2011 20:29 FOOD AND BEVERAGE ASSISTANT, Once, Blood Pharmacy: Toradol (Order Processing): 30 mg, IV, Once Zofran (Order Processing): 4 mg, IV, Once Dilaudid (Order Processing): 1 mg, IV, Once NS 1000 mL Bolus and Continuous 1000 mL (Order Processing): 999 mL/hr, IVLaunch Orders. Laboratory: UA with Microscopic (Order Processing): Stat, 07/02/2011 20:34 FOOD AND BEVERAGE ASSISTANT, Once, Urine, Clean Void Urine Comprehensive Metabolic Panel (Order Processing): Stat, 07/02/2011 20:34 FOOD AND BEVERAGE ASSISTANT, Once, Blood Impression and Plan Diagnosis Migraine headache (Discharge, Emergency medicine, Medical) Hypertension (Discharge, Emergency medicine, Medical) tachycardia rule out pheochromocytoma 89306 Discharge plan Condition: Improved. Dispositioned: Time 07/02/2011 21:52:00, To home. Prescriptions: Prescription Relationship Advisor. Pharmacy: [facility] (Order Processing): 2 tab(s), PO, q4hr Patient was given the following educational materials: CLONIDINE, HYPERTENSION, To Be Confirmed, PAT(P.A.T.), CLONIDINE, HYPERTENSION, To Be Confirmed, PAT (P.A.T.). 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 No work for 7 days.. Follow up with: ROYA BLACK Within As Needed Call for follow up appointment. Counseled: Patient, Family, Regarding diagnosis, Regarding diagnostic results, Regarding treatment plan, Regarding prescription, Patient indicated understanding of instructions. Electronically Signed By: EV JEFFREY MD On: 07/03/2011 02:45 AM Modified by and Electronically Signed by: EV JEFFREY MD On: 07/03/2011 02:45 AM Source: [facility] POWERCHART Document Id: [id number]} AND BEVERAGE ASSISTANT Priya Ríos R.N. - 07/02/2011 8:00 PM CST ED Treatments and Procedures ED Treatments and Procedures Entered On: 07/02/2011 20:51 FOOD AND BEVERAGE ASSISTANT Performed On: 07/02/2011 20:00 FOOD AND BEVERAGE ASSISTANT by PRIYA RÍOS RN Peripheral IV Peripheral IV Assess/Intervention Grid Peripheral IV #1 IV Activity : Start Number of Attempts : 2 Date of Insertion : 07/02/2011 FOOD AND BEVERAGE ASSISTANT IV Site : Forearm Laterality : Left Catheter Size : 20 Catheter Type : Protective Site Condition : No complications PRIYA RÍOS RN - 07/02/2011 20:46 FOOD AND BEVERAGE ASSISTANT Source: [facility] DataMotion Document Id: [id number] FOOD AND BEVERAGE ASSISTANT!12 AND BEVERAGE ASSISTANT documented in this encounter Miscellaneous Notes Miscellaneous - Priya Ríos R.N. - 07/02/2011 10:15 PM CST Valuables/Belongings Valuables/Belongings Entered On: 07/02/2011 22:15 FOOD AND BEVERAGE ASSISTANT Performed On: 07/02/2011 22:15 FOOD AND BEVERAGE ASSISTANT by PRIYA RÍOS RN Valuables/Belongings Belongings Sent Home With : all personal belonings sent home with patient Home Medication Disposition : None brought in with patient PRIYA RÍOS RN - 07/02/2011 22:15 FOOD AND BEVERAGE ASSISTANT Source: [facility] DataMotion Document Id: [id number] FOOD AND BEVERAGE ASSISTANT!4 AND BEVERAGE ASSISTANT Miscellaneous - Conversion, Historical Provider Ser - 07/02/2011 7:52 PM FOOD AND BEVERAGE ASSISTANT Facility Charge Ticket Facility Charge Ticket Entered On: 07/08/2011 11:26 CDT Performed On: 07/02/2011 19:52 FOOD AND BEVERAGE ASSISTANT by REGINA MELLO Facility Charge TVL Level for Facility Charge Ticket : Level 5 Mode of Arrival ED : Private vehicle [facility] Mode of Arrival Interpreted : Standard [facility] Process Management : None [facility] Order Management : Lab tests 30 Minutes Critical Care : No [place] Nursing Assessment : Triage and 1-2 nursing assessments [facility] Disposition : Discharge [facility] Total Points with Diagnosis Control : 12 [facility] Visit Level : 79385 Level 4 REGINA MELLO - 07/08/2011 11:25 CDT Source: [facility] POWERCHART Document Id: [id number] CDT!12 documented in this encounter Plan of Treatment Not on filedocumented as of this encounter Procedures Procedure Name Priority Date/Time Associated Comments Diagnosis C-REACTIVE PROTEIN Routine 07/02/2011 8:05 PM Res ults for this (CRP), S/P FOOD AND BEVERAGE ASSISTANT procedure are i n the results section. COMPREHENSIVE Routine 07/02/2011 8:05 PM Results for this METABOLIC PANEL, S/P FOOD AND BEVERAGE ASSISTANT procedu re are in the results section. documented in this encounter Results CMP (Comprehensive Metabolic Panel) (07/02/2011 8:05 PM FOOD AND BEVERAGE ASSISTANT) P athologist Signature Glucose 109 70 - 139 POWERCHART MGDL Comment: Reference Range: 70 - 99 mg/dL - Fasting 70 - 139 mg/dL - Non Fasting BUN (Blood Urea Nitrogen), S 15.1 6.0 - 21.0 MGDL POWERCHART Creatinine, S 0.6 0.6 - 1.4 MGDL POWERCHART HXeGFR (MDRD) >60 MLMIN POWERCHART eGFR Black/ >60 MLMIN PO WERCHART BUN/Creatinine Ratio 25 POWERCHAR T Sodium, S 140 136 - 148 MML POWERCHART Potassium, S 3.8 3.5 - 5.0 MML POWERCHART Chloride, S 106 100 - 111 MMOLL POWERCHART CO2 Total 21 21 - 32 MMOLL POWERCHART Anion Gap 17 10 - 20 MMOLL POWERCHART Albumin, S 4.4 3.5 - 5.0 GDL POWERCHART Alanine Amniotransferase, LD <20.0 10 - 43 INTUL POWERCHART Aspartate Aminotransferase (AST), S 20 15 - 46 INTUL POWERCHART Alkaline Phosphatase, S 53 38 - 126 INTUL P OWERCHART Bilirubin, Total, S 0.50 0.10 - 1.00 MGDL POW ERCHART Total [...] Time Location / / Volume Laterality Blood 07/02/2011 8:05 PM FOOD AND BEVERAGE ASSISTANT Ev Jeffrey M.D. LAB BLOOD ADD-ON Performing Organization Address City/State/ZIP Code Phon e Number POWERCHART CRP (C-Reactive Protein) (07/02/2011 8:05 PM FOOD AND BEVERAGE ASSISTANT) P athologist Signature C-Reactive <0.50 0.3 - 0.9 POWERCHART Protein (CRP), MGDL S Specimen (Source) Anatomical Collection Method Collection Time Re ceived Time Location / / Volume Laterality Blood 07/02/2011 8:05 PM FOOD AND BEVERAGE ASSISTANT Ev Jeffrey M.D. LAB BLOOD ADD-ON Performing Organization Address City/State/ZIP Code Phon e Number POWERCHART documented in this encounter Visit Diagnoses Not on filedocumented in this encounter
--- OUTSIDE RECORDS SUMMARY | 2021-12-10 15:40 | XMS_ITS | Encounter Summary ---
:1980 Author Organization [facility] Address [address] [place] [address] Care Team Providers Name Role Phone Unavailable Primary Care Provider Unavailable Encounter Details Date Type Department Care Team Description 07/01/2011 Hospital Encounter HX [facility] Rusty Macias M.D. [address] [place], [place] [id number] (Wo rk) Social History Tobacco Use Types Packs/Day Years Used Date Smoking Tobacco: Never Assessed Sex Assigned at Date Recorded Female 04/15/2017 7:38 PM COMPUTATIONAL CHEMIST documented as of this encounter Last Filed Vital Signs Vital Sign Reading Time Taken Comments Blood Pressure 126/84 07/01/2011 9:30 AM COMPUTATIONAL CHEMIST Pulse 80 07/01/2011 9:30 AM COMPUTATIONAL CHEMIST Temperature - - Respiratory Rate - - Oxygen Saturation - - Inhaled Oxygen Concentration - - Weight 54.8 kg (120 lb 13 oz) 07/01/2011 9:30 AM COMPUTATIONAL CHEMIST Height 166 cm (5' 5.35) 07/01/2011 9:30 AM COMPUTATIONAL CHEMIST Body Mass Index 19.89 07/01/2011 9:30 AM COMPUTATIONAL CHEMIST documented in this encounter Progress Notes Carlos Vang M.D. - 07/01/2011 12:00 AM CST [id number] CHIEF COMPLAINT/REASON FOR VISIT 1. Palpitation. 2. Chest pain. 3. Flushing. HISTORY OF PRESENT ILLNESS This 31-year-old lady comes in today right from the ER visit today. She presented to the ER after noticing significant amount of palpitation as well as possible chest pressure. The patient was driving to go to her work this morning and suddenly started with resting heart rate. This lasted for around 10 minutes and in the meantime she felt slightly dizzy and some chest pressure. She pulled over and called 911. The patient was evaluated in the ER and a cardiac workup was completely done and was reported to be negative. The patient currently has a followup to see if further workup is needed. The patient also gives a history of having almost dizzy spell around a week ago while running on the treadmill. She noticed her heart rate was around 175 at that point. The patient was seen by me a few months ago regarding possible near syncope. At that time was noted to be benign in nature and we had not undergone any further workup. The patient currently wants to see if anything further should be done. Currently denies any chest pain, shortness of breath, nausea, vomiting, diarrhea. She does say that the lorazepam which was given in the ER did make her feel a lot of better. PAST MEDICAL/SURGICAL HISTORY Reviewed. CURRENT MEDICATIONS Reviewed. ALLERGIES Reviewed. SOCIAL HISTORY Reviewed. FAMILY HISTORY Reviewed. SYSTEMS REVIEW As above. All other systems were reviewed and were negative. PHYSICAL EXAM VITAL SIGNS: Reviewed. GENERAL: In no apparent distress, comfortable and cooperative. HEENT: Normocephalic, atraumatic. EOMI. PERRL. No conjunctival injection. Nose patent bilaterally without erythema or drainage. Oropharynx: [place] mucous membranes without lesions, exudate or drainage. NECK: Supple without lymphadenopathy. No thyromegaly or thyroid masses. CARDIOVASCULAR: Regular rate and rhythm without murmur, gallop or rubs. LUNGS: Clear to auscultation bilaterally without wheezing or rales. ABDOMEN: Soft, nontender and nondistended. Normal active positive bowel sounds. No hepatosplenomegaly or masses appreciated. EXTREMITIES: No clubbing, cyanosis or edema. LABORATORY/RADIOLOGY Labs from this morning was also reviewed with the patient. EKG was reviewed as well. IMPRESSION/REPORT/PLAN Palpitations associated with flushing as well as dizziness. Her initial cardiac workup was negative. Upon further questioning it was discovered that she does have a lot of flushing through the day as well as starts sweating once in a while. We had a thyroid panel done in the past and today as well and they were all normal. I will send the patient for serum metanephrine as well as urine 5 hydroxyindoleacetic acid level today. I will also send the patient for cardiac stress testing as well as event monitoring. Further management will depend on how things are represented. In the meantime I have suggested that if she comes up with similar symptoms she should present to the ER immediately. I have provided her some lorazepam today. Side effects of the medication as well as long-term use, complications were also discussed with the patient. The patient will be seen back as needed. Isabell Tamayo,B.S./ulises Electronically Signed By: CARLOS VANG MD On: 07/08/2011 02:56 PM Source: [facility] [id number] Document Id: [id number] documented in this encounter Nursing Notes Conversion, Historical Provider Ser - 07/01/2011 10:37 AM CST Event Monitor an event monitor has been ordered from [facility] and will be sent to patient. Electronically Signed By: JENN LR LPN On: 07/01/2011 10:37 AM Source: [facility] POWERCHART Document Id: [id number] documented in this encounter Miscellaneous Notes Miscellaneous - Yolis Lopez, RCinthiaN. - 07/16/2011 12:14 PM CDT General Message From: YOLIS LOPEZ RN ([facility] Triage Nurse) To: CARLOS VANG MD; Sent: 07/16/2011 12:14:14 CDT Subject: General Message Patient was seen on 07/13 for followup from ER for elevated B/P and headaches. She continues to havea headache rating pain at 5-6/10 with Motrin prn. She tried the Percocet but felt it did not help and only made her sick. She was gvien Ambien 10 mg po at hs and has tried this the past two nights. Sheis still not sleeping more than 2 hours per night and questions what else she can do? She states shefeels tired when going to bed but is very restless. She has decreased her caffeine intake and deniesany new stressors in her life. In regards to her fast heart rate she feels that is about the same. Madi with NKDA. [phone]. Source: [facility] POWERCHART Document Id: [id number] Electronically signed by Conversion, [facility] Truck Crane Operator [id number] at 09/27/2016 3:17 AM CDT Miscellaneous - Conversion, Historical Provider Ser - 07/01/2011 9:30 AM COMPUTATIONAL CHEMIST Adult Hand Box Folder Intake/History Adult Hand Box Folder Intake/History Entered On: 07/01/2011 9:32 COMPUTATIONAL CHEMIST Performed On: 07/01/2011 9:30 COMPUTATIONAL CHEMIST by JENN LR LPN Intake Chief Complaint : follow up from ER Temperature Core : 37.2C(Converted to: 99.0DegF) Peripheral Pulse Rate : 80/min Systolic Blood Pressure : 126mmHg Diastolic Blood Pressure : 84mmHg NIBP Mean : 98mmHg BP Location : Right upper extremity Blood Pressure Cuff Size : Regular Height : 166cm(Converted to: 5ft 5inch(es), 65.35inch(es)) Actual Weight : 54.8kg(Converted to: 120lb 13oz) Dosing Weight Clinic : 54.80kg Clinic BSA : 1.59 Body Mass Index : 19.89kg/m2 JENN LR LPN - 07/01/2011 9:30 COMPUTATIONAL CHEMIST Subjective Pain Symptoms : Yes JENN LR LPN - 07/01/2011 9:30 COMPUTATIONAL CHEMIST Pain Pain Assessment Grid Pain 1 Location : Head Intensity : 7 JENN LR LPN - 07/01/2011 9:30 COMPUTATIONAL CHEMIST Dependent Habits Tobacco Use/Currently Using : No Smoking Status : Never smoker JENN LR LPN - 07/01/2011 9:30 COMPUTATIONAL CHEMIST Tobacco Use Grid Last Use : never JENN LR LPN - 07/01/2011 9:30 COMPUTATIONAL CHEMIST Caffeine Use Grid Caffeine Use : Current Type : Soft drinks Frequency : Daily JENN LR [facility] - 07/01/2011 9:30 COMPUTATIONAL CHEMIST Recreational Drug Use Grid Drug Use : None JENN LR [facility] - 07/01/2011 9:30 COMPUTATIONAL CHEMIST Allergy Allergies (Active) NKA Estimated Onset Date: Unspecified ; Created By: BRITTANY WALTON; Reaction Status: Active ; Category: Drug ; Substance: NKA ; Type: Allergy ; Updated By: BRITTANY WALTON; Reviewed Date: 07/01/2011 9:29 COMPUTATIONAL CHEMIST Source: [facility] POWERCHART Document Id: [id number] COMPUTATIONAL CHEMIST!36 documented in this encounter Plan of Treatment Not on filedocumented as of this encounter Procedures Procedure Name Priority Date/Time Associated Diagnosis Comme nts 5-HYDROXYINDOLEACET Routine 07/14/2011 8:00 AM Re sults for this IC ACID, 24 HR U CDT procedure a re in the results section. METANEPHRINES, Routine 07/01/2011 10:25 AM Result s for this FRACTIONATED, FREE, COMPUTATIONAL CHEMIST procedur e are in P the results section. documented in this encounter Results 5-Hydroxyindoleacetic Acid (5-HIAA), 24 Hour, Urine (07/14/2011 8:00 AM CDT) athologist Signature 5-Hydroxyindole 2.5 <=8.0 POWERCHART acetic Acid, U MG24HR HXHrs 24 HR POWERCHART 5-HIAA-[place] HXTV 1175 ML POWERCHART 5-HIAA-[place] Comment: Test Performed by: [facility] Dpt of Lab Med and Pathology [address] [place] [address] Stock Mixer: Hitesh blake III, M.D. Specimen (Source) Anatomical Collection Method Collection Time Re ceived Time Location / / Volume Laterality Urine 07/14/2011 8:00 AM CDT Carlos Vang M.D. LAB URINE ORDERABLES Performing Organization Address City/State/ZIP Code Phon e Number POWERCHART Metanephrines, Fractionated, Free (07/01/2011 10:25 AM COMPUTATIONAL CHEMIST) P athologist Signature Normetanephrine 0.33 <0.90 NMOLL POWERCHART , Free Metanephrine, <0.20 <0.50 NMOLL POWERCHART Free Comment: Test Performed by: [facility] Dpt of Lab Med and Pathology [address] [place] [id number] Stock Mixer: Hitesh blake III, M.D. Specimen (Source) Anatomical Collection Method Collection Time Re ceived Time Location / / Volume Laterality Blood 07/01/2011 10:25 AM COMPUTATIONAL CHEMIST Carlos Vang M.D. LAB BLOOD NON ADD-ON Performing Organization Address City/State/ZIP Code Phon e Number POWERCHART documented in this encounter Visit Diagnoses Not on filedocumented in this encounter
--- OUTSIDE RECORDS SUMMARY | 2021-12-10 15:40 | XMS_ITS | Encounter Summary ---
:1980 Author Organization [facility] Address [address] [place] [address] Care Team Providers Name Role Phone Unavailable Primary Care Provider Unavailable Encounter Details Date Type Department Care Team Description 07/01/2011 Hospital Encounter HX [facility] Quintin De Paz M.D. [address] [place], [place] [address] (Wo rk) Social History Tobacco Use Types Packs/Day Years Used Date Smoking Tobacco: Never Assessed Sex Assigned at Date Recorded Female 04/15/2017 7:38 PM SECURITY LEAD documented as of this encounter Last Filed Vital Signs Vital Sign Reading Time Taken Comments Blood Pressure 147/102 07/01/2011 9:00 AM SECURITY LEAD Pulse - - Temperature - - Respiratory Rate 20 07/01/2011 7:00 AM SECURITY LEAD Oxygen Saturation - - Inhaled Oxygen Concentration - - Weight - - Height 166 cm (5' 5.35) 07/01/2011 5:28 AM SECURITY LEAD Body Mass Index - - documented in this encounter Discharge Summaries Daisy Mckeon RChoco - 07/01/2011 9:45 AM CST ED Discharge Instructions [facility] [address] [place] [address] or [phone] Name: DENICE OWENS Date of : 1980 12:00 AM Visit Date: 07/01/2011 5:20 AM Address: [address] [place] [phone] Primary Care Provider: ROYA BLACK MD IMPORTANT: [employer] in [place] would like to thank you for allowing us to assistyou with your healthcare needs. The following includes patient education materials and information regarding your injury/illness. Chief Complaint: Chest pain; HIGH BP/HEART ISSUES Follow-Up Instructions: With: Address: When: Follow up with primary care provider Within As Needed Comments: Call for follow up appointment For recheck If symptoms worsen With: Address: When: ROYA BLACK [address] [facility] [place], [place] [phone] [facility] (1) Within As Needed Comments: Patient Education Materials: [id number] DYSPNEA - Shortness of Breath Shortness of Breath (also known as Dyspnea) is the sense that you can't catch your breath or can'tget enough air. Dyspnea can be caused by many different conditions such as: ?? Acute asthma attack ?? Worsening of emphysema (also called COPD) -- a lung disease that is caused by smoking ?? A mucus plug blocks a large air passage in the lung -- this can occur with emphysema or chronic bronchitis ?? Congestive Heart Failure (CHF) -- when a weak heart muscle allows excess fluid to collect in the lungs ?? Panic attacks, anxiety -- fear can cause rapid breathing (hyperventilation) ?? Pneumonia -- infection in the lung tissue ?? Exposure to toxic fumes or smoke ?? Pulmonary embolus (blood clot to the lung) Based on your visit today, the exact cause of your shortness of breath is not certain. Your tests donot show any of the serious causes of dyspnea. Sometimes, further testing is needed to find out if aserious problem exists. Therefore, it is important for you to watch for any new symptoms or worsening of your condition and follow up with your doctor as directed. HOME CARE: 1) When your symptoms are better, resume your usual activities. 2) If you smoke, you need to stop. Join a stop-smoking program or ask your doctor for help. FOLLOW UP with your doctor or as advised by our staff. [NOTE: If you had an X-ray or EKG (cardiogram), it will be reviewed by a specialist. You will be notified of any new findings that may affect your care.] GET PROMPT MEDICAL ATTENTION if any of the following occur: -- Increasing shortness of breath or wheezing -- Redness, pain or swelling in one leg -- Swelling in both legs or ankles -- Unexpected weight gain -- Chest, arm, shoulder, neck or upper back pain -- Dizziness, weakness or fainting -- Palpitations (the sense that your heart is fluttering, beating fast or hard) -- Fever over 100.0?? F (37.8?? C) -- Cough with dark colored or bloody sputum (mucus) ?? [id number] [employer] [address] [place] [address], [place] [id number]. All rights reserved. This information is not intended as a substitute for professional medical care. Always follow your healthcare professional's instructions. ED Tests and Procedures: Order Status Oxygen - ER Ordered EKG-Lab. InProcess Basic Metabolic Panel Completed CBC (includes Auto Differential) Completed PT/INR Completed PTT Completed Troponin T Completed Automated Diff-5 Part Completed Ethanol Level Completed Urinalysis with Microscopic Completed Urine Drug Screen Medical Completed Discharge Prescriptions & Home Medications: Medication/Strength Dose Route Frequency Indications/Special Instructions/Comments No Medications found Comment: Attention: If you have any medications [...] arrange a ride home with a responsible alliance party. IROMAN JENNIFER LYNN , or responsible alliance party have received this information and my questions have been answered. I have discussed any challenges I see with this plan with the nurse or physician. Patient Signature or Responsible Libertarian/Relationship Date/Time Provider Signature Date/Time Medication Reconciliation: Reconciliation [...] arrange a ride home with a responsible alliance party. ROMAN Velasco JENNIFER LYNN , or responsible alliance party have received this information and my questions have been answered. I have discussed any challenges I see with this plan with the nurse or physician. Patient Signature or Responsible Libertarian/Relationship Date/Time Provider Signature Date/Time Source: [facility] [employer] Document Id: [id number] RITY LEAD Daisy Mckeon R.N. - 07/01/2011 9:45 AM CST ED Depart Summary [facility] Emergency Department Clinical Discharge Summary PERSON INFORMATION Name DENICE OWENS Age 31 Years 1980 12:00 AM Sex Female Language Brazilian PCP ROYA BLACK MD Marital Status Visit Id Visit Reason Chest pain; HIGH BP/HEART ISSUES Specialty Enc Type Emergency Med Service Emergency Medicine Referred by Track Group [facility] ED/UC Discharge 07/01/2011 9:15 AM Tracking Id [id number] Checkout 07/01/2011 9:15 AM Checkin 07/01/2011 5:20 AM Acuity 3 -Urgent Dispo Type * Discharged to Home or Self Care Arrival 07/01/2011 5:20 AM Reg Status Complete LOS 000 03:55 Address: [address] [place] [phone] Comment: PROVIDER INFORMATION Provider Role Provider Contact Time QUINTIN DE PAZ MD ED Provider 07/01/11 05:26 GABRIEL SCOTT RN ED Nurse 07/01/11 05:36 DIAGNOSIS Dyspnea; Anxiety disorder NOS; Palpitation Comment: PATIENT EDUCATION INFORMATION Instructions: DYSPNEA Follow up: With: Address: When: Follow up with primary care provider Within As Needed Comments: Call for follow up appointment For recheck If symptoms worsen With: Address: When: ROYA BLACK [address] [place] [phone] [facility] () Within As Needed Comments: Source: [facility] [employer] Document Id: [id number] RITY LEAD documented in this encounter Nursing Notes Gabriel Scott R.N. - 07/01/2011 5:28 AM CST ED Primary Assessment ED Primary Assessment Entered On: 07/01/2011 5:33 SECURITY LEAD Performed On: 07/01/2011 5:28 SECURITY LEAD by GABRIEL SCOTT RN Reason For Visit Diagnoses(Active) Chest pain Date: 07/01/2011 ; Diagnosis Type: Reason For Visit ; Confirmation: Complaint of ; Clinical Dx: Chest pain ; Classification: Medical ; Clinical Service: Emergency medicine ; Code: PNED ; Probability: 0 ; Diagnosis Code: [id number] Triage Chief Complaint Description : WHILE GETTING READY THIS MORINIG FELT DIZZY AND TINGLY IN THE SHOWER. FEELING PASSED. IN THE CAR ABOUT 0440 HAD CHEST PAIN, RACING HEART, AND HER BODY FELT TINGLY. IS DOCTORING FOR THE RACING HEART. Information Given By : Patient, EMS Accompanied By : EMS Mode of Arrival ED : Ambulance Track : Medical Languages : Brazilian Vital Signs Assessed : Yes GCS Assessed : Yes GABRIEL SCOTT RN - 07/01/2011 5:28 SECURITY LEAD Vital Signs Temperature Core : 36.6C(Converted to: 97.9DegF) Apical Heart Rate : 112/min (HI) Respiratory Rate : 24/min (HI) Systolic Blood Pressure : 142mmHg (HI) Diastolic Blood Pressure : 109mmHg (>HHI) NIBP Mean : 120mmHg BP Location : Right upper extremity SpO2 : 100% Oxygen Therapy : Room air Height : 166cm(Converted to: 5ft 5inch(es)) Dosing Weight : 55kg Dosing Weight Conversion to Pounds : 121.000lb Estimated Weight : 55kg Estimated Weight Conversion to Pounds : 121.00lb GABRIEL SCOTT RN - 07/01/2011 5:28 SECURITY LEAD [place] Coma Eye Opening Response [place] : Spontaneously Best Verbal Response [place] : Oriented Best Motor Response [place] : Obeys simple commands [place] Coma Score : 15 GABRIEL SCOTT RN - 07/01/2011 5:28 SECURITY LEAD Pain Assessment Pain Symptoms : Yes GABRIEL SCOTT RN - 07/01/2011 5:28 SECURITY LEAD Pain Pain Assessment Grid Pain 1 Location : Head Laterality : Right Intensity : 6 Acceptable Intensity : 0 Time Pattern : Chronic Onset : Gradual Quality : Aching Pain Radiation : No Aggravating Factors : None Alleviating Factors : None Associated Symptoms : None GABRIEL SCOTT RN - 07/01/2011 5:28 SECURITY LEAD HORACIO HORACIO Level 1 : No HORACIO Level 2 : No HORACIO Level 3 : Many Vital Signs HORACIO : No GABRIEL SCOTT RN - 07/01/2011 5:28 SECURITY LEAD DCP GENERIC CODE Tracking Acuity : 3 -Urgent Tracking Group : [facility] ED/ GABRIEL SCOTT RN - 07/01/2011 5:28 SECURITY LEAD Allergy Allergies (Active) NKA Estimated Onset Date: Unspecified ; Created By: BRITTANY WALTON; Reaction Status: Active ; Category: Drug ; Substance: NKA ; Type: Allergy ; Updated By: BRITTANY WALTON; Reviewed Date: 04/09/2011 10:46 SECURITY LEAD Immunizations Last Tetanus : < 5 years GABRIEL SCOTT RN - 07/01/2011 5:28 SECURITY LEAD Respiratory Airway : Patent Respirations : Unlabored Respiratory Pattern : Regular GABRIEL SCOTT RN - 07/01/2011 5:28 SECURITY LEAD Cardiovascular Heart Rhythm : Regular Skin Color : Normal for ethnicity Skin Description : Dry Skin Temperature : Warm TANIYA Risk Score Access : Yes Cardiovascular Detailed Assessment : Yes GABRIEL SCOTT RN - 07/01/2011 5:28 SECURITY LEAD CV Detailed CV Patient Stated Symptoms : Chest pain Nail Bed Color : Hollins Capillary Refill : Less than 2 seconds Cardiac Rhythm : Sinus tachycardia GABRIEL SCOTT RN - 07/01/2011 5:28 SECURITY LEAD TANIYA Risk Score Age TANIYA : No ASA TANIYA : No Angina TANIYA : No ST Deviation TANIYA : No Biomarkers TANIYA : No CAD Risk TANIYA : No Stenosis TANIYA : No TANIYA score : 0 GABRIEL SCOTT RN - 07/01/2011 5:28 SECURITY LEAD Neurological Level of Consciousness : Alert Orientation : Oriented x 3 Characteristics of Speech : Appropriate for age Neuro Patient Stated Symptoms : None Swallowing Difficulty/Aspiration Risk : None Loss of Consciousness : No GABRIEL SCOTT RN - 07/01/2011 5:28 SECURITY LEAD ED Psychosocial Affect/Behavior : Cooperative Domestic Abuse Concerns : None GABRIEL SCOTT RN - 07/01/2011 5:28 SECURITY LEAD Gastrointestinal Nutrition ED : Adequate GABRIEL SCOTT RN - 07/01/2011 5:28 SECURITY LEAD Musculoskeletal Fall Prevention Education Provided : Yes GABRIEL SCOTT RN - 07/01/2011 5:28 SECURITY LEAD Social Habits Tobacco Use/Currently Using : No Tobacco Use/Last 12 months : No Tobacco Use/Advised to Quit : No Smoking Status : Never smoker GABRIEL SCOTT RN - 07/01/2011 5:28 SECURITY LEAD Tobacco Use Grid Last Use : never GABRIEL SCOTT RN - 07/01/2011 5:28 SECURITY LEAD Alcohol Use Grid Alcohol Use : No GABRIEL SCOTT RN - 07/01/2011 5:28 SECURITY LEAD Recreational Drug Use Grid Drug Use : None GABRIEL SCOTT RN - 07/01/2011 5:28 SECURITY LEAD Peripheral IV Peripheral IV Assess/Intervention Grid Peripheral IV #1 IV Activity : Field start Number of Attempts : 1 Date of Insertion : 07/01/2011 SECURITY LEAD IV Site : Forearm Laterality : Left Catheter Size : 18 Catheter Type : Protective Site Condition : No complications Drainage Description : None Infiltration Score : 0 Phlebitis Score : 0 Site/Line Care : Secured with tape Dressing/ Activity : Transparent Flow/ Patency : No complications IV Equipment/Supplies : Regular GABRIEL SCOTT RN - 07/01/2011 5:28 SECURITY LEAD Source: [facility] [employer] Document Id: [id number] SECURITY LEAD!127 RITY LEAD documented in this encounter ED Notes Daisy Mckeon R.N. - 07/01/2011 9:15 AM CST ED Disposition Summary ED Disposition Summary Entered On: 07/01/2011 9:43 SECURITY LEAD Performed On: 07/01/2011 9:15 SECURITY LEAD by DAISY MCKEON RN ED Disposition Summary Accompanied By : Spouse Mode of Discharge : Wheelchair Nurse Receiving Report : Pt taken to Dr. Nolan's office Discharge From ED With : Home Med List Printed Discharge Instructions Given to Patient : Yes Patient Status at Discharge from ED : Improved DAISY MCKEON RN - 07/01/2011 9:43 SECURITY LEAD Source: [facility] [employer] Document Id: [id number] SECURITY LEAD!8 RITY LEAD Daisy Mckeon R.N. - 07/01/2011 9:15 AM CST ED Education ED Education Entered On: 07/01/2011 9:44 SECURITY LEAD Performed On: 07/01/2011 9:15 SECURITY LEAD by DAISY MCKEON RN Education ED Education Grid Topics : Plan of care Individuals Taught : Patient, Spouse Barriers to Learning : None evident Teaching Method : Explanation, Printed materials Teaching Evaluation : Verbalizes understanding DAISY MCKEON RN - 07/01/2011 9:43 SECURITY LEAD Source: [facility] [employer] Document Id: [id number] SECURITY LEAD!9 RITY LEAD Daisy Mckeon R.N. - 07/01/2011 9:15 AM CST ED Treatments and Procedures ED Treatments and Procedures Entered On: 07/01/2011 9:44 SECURITY LEAD Performed On: 07/01/2011 9:15 SECURITY LEAD by DAISY MCKEON burlap roll coverer Monitoring Monitoring Lead Informatics Spec : Discontinued DAISY MCKEON RN - 07/01/2011 9:44 SECURITY LEAD Peripheral IV Peripheral IV Assess/Intervention Grid Peripheral IV #1 IV Activity : Discontinue Number of Attempts : 1 Date of Insertion : 07/01/2011 SECURITY LEAD IV Site : Forearm Laterality : Left Catheter Size : 18 Catheter Type : Protective DAISY MCKEON RN - 07/01/2011 9:44 SECURITY LEAD Source: [facility] [employer] Document Id: [id number] SECURITY LEAD!13 Daisy Crockett R.N. - 07/01/2011 8:30 AM CST ED Nurse Reassess ED Nurse Reassess Entered On: 07/01/2011 9:36 SECURITY LEAD Performed On: 07/01/2011 8:30 SECURITY LEAD by DAISY MCKEON RN Pain Assessment Pain Symptoms : Yes DAISY MCKEON RN - 07/01/2011 9:35 SECURITY LEAD Pain Pain Assessment Grid Pain 1 Location : Head Laterality : Right Intensity : 5 Acceptable Intensity : 0 DAISY MCKEON RN - 07/01/2011 9:35 SECURITY LEAD Resp Reassess Respiratory Patient Stated Symptoms : None Distress : None Airway : Patent Respirations : Unlabored Cough : None DAISY MCKEON RN - 07/01/2011 9:35 SECURITY LEAD CV Reassess CV Patient Stated Symptoms : None Skin Color : Normal for ethnicity Skin Description : Dry Skin Temperature : Warm Nail Bed Color : Hollins Cardiac Rhythm : Sinus rhythm DAISY MCKEON RN - 07/01/2011 9:35 SECURITY LEAD Neuro Reassess Neuro Patient Stated Symptoms : None Level of Consciousness : Alert Orientation : Oriented x 3 Characteristics of Speech : Appropriate for age DAISY MCKEON RN - 07/01/2011 9:35 SECURITY LEAD [facility] Document Id: [id number] SECURITY LEAD!28 RITY LEAD Daisy Mckeon R.N. - 07/01/2011 7:45 AM CST ED Nurse Reassess ED Nurse Reassess Entered On: 07/01/2011 9:35 SECURITY LEAD Performed On: 07/01/2011 7:45 SECURITY LEAD by DAISY MCKEON RN Pain Assessment Pain Symptoms : Yes DAISY MCKEON RN - 07/01/2011 9:35 SECURITY LEAD Pain Pain Assessment Grid Pain 1 Location : Head Laterality : Right Intensity : 6 Acceptable Intensity : 0 DAISY MCKEON RN - 07/01/2011 9:35 SECURITY LEAD Resp Reassess Respiratory Patient Stated Symptoms : None Distress : None Airway : Patent Respirations : Unlabored Cough : None DAISY MCKEON RN - 07/01/2011 9:35 SECURITY LEAD CV Reassess CV Patient Stated Symptoms : None Skin Color : Normal for ethnicity Skin Description : Dry Skin Temperature : Warm Nail Bed Color : Hollins Cardiac Rhythm : Sinus tachycardia DAISY MCKEON RN - 07/01/2011 9:35 SECURITY LEAD Neuro Reassess Neuro Patient Stated Symptoms : None Level of Consciousness : Alert Orientation : Oriented x 3 Characteristics of Speech : Appropriate for age DAISY MCKEON Wendie RN - 07/01/2011 9:35 SECURITY LEAD Source: [employer] Document Id: [id number] SECURITY LEAD!28 RITY LEAD Gabriel Scott R.N. - 07/01/2011 7:09 AM CST ED Nurse Reassess ED Nurse Reassess Entered On: 07/01/2011 7:09 SECURITY LEAD Performed On: 07/01/2011 7:09 SECURITY LEAD by GABRIEL SCOTT RN Pain Assessment Pain Symptoms : Yes GABRIEL SCOTT RN - 07/01/2011 7:09 SECURITY LEAD Pain Pain Assessment Grid Pain 1 Location : Head Laterality : Right Intensity : 7 GABRIEL SCOTT RN - 07/01/2011 7:09 SECURITY LEAD Resp Reassess Respiratory Patient Stated Symptoms : None Distress : None Airway : Patent Respirations : Unlabored Cough : None GABRIEL SCOTT RN - 07/01/2011 7:09 SECURITY LEAD CV Reassess CV Patient Stated Symptoms : None Skin Color : Normal for ethnicity Skin Description : Dry Skin Temperature : Warm GABRIEL SCOTT RN - 07/01/2011 7:09 SECURITY LEAD Neuro Reassess Neuro Patient Stated Symptoms : None Level of Consciousness : Alert Orientation : Oriented x 3 Characteristics of Speech : Appropriate for age Swallowing Difficulty/Aspiration Risk : None GABRIEL SCOTT RN - 07/01/2011 7:09 SECURITY LEAD Behavioral Health Screen/Safety Reassmt Affect/Behavior : Calm, Cooperative GABRIEL SCOTT RN - 07/01/2011 7:09 SECURITY LEAD Source: [employer] Document Id: [id number] SECURITY LEAD!28 RITY LEAD Gabriel Scott R.N. - 07/01/2011 6:40 AM CST ED Nurse Reassess ED Nurse Reassess Entered On: 07/01/2011 6:51 SECURITY LEAD Performed On: 07/01/2011 6:40 SECURITY LEAD by GABRIEL SCOTT RN Pain Assessment Pain Symptoms : Yes GABRIEL SCOTT RN - 07/01/2011 6:51 SECURITY LEAD Pain Pain Assessment Grid Pain 1 Location : Head Laterality : Right Intensity : 6 GABRIEL SCOTT RN - 07/01/2011 6:51 SECURITY LEAD Resp Reassess Respiratory Patient Stated Symptoms : None Distress : None Airway : Patent Respirations : Unlabored Cough : None GABRIEL SCOTT RN - 07/01/2011 6:51 SECURITY LEAD CV Reassess CV Patient Stated Symptoms : None Skin Color : Normal for ethnicity Skin Description : Dry Skin Temperature : Warm GABRIEL SCOTT RN - 07/01/2011 6:51 SECURITY LEAD Neuro Reassess Neuro Patient Stated Symptoms : None Level of Consciousness : Alert Orientation : Oriented x 3 Characteristics of Speech : Appropriate for age Swallowing Difficulty/Aspiration Risk : None GABRIEL SCOTT RN - 07/01/2011 6:51 SECURITY LEAD Behavioral Health Screen/Safety Reassmt Affect/Behavior : Calm, Cooperative GABRIEL SCOTT RN - 07/01/2011 6:51 SECURITY LEAD Source: [facility] [employer] Document Id: [id number] SECURITY LEAD!28 RITY LEAD Gabriel Scott R.N. - 07/01/2011 6:09 AM CST ED Nurse Reassess ED Nurse Reassess Entered On: 07/01/2011 6:09 SECURITY LEAD Performed On: 07/01/2011 6:09 SECURITY LEAD by GABRIEL SCOTT RN Pain Assessment Pain Symptoms : Yes GABRIEL SCOTT RN - 07/01/2011 6:09 SECURITY LEAD Pain Pain Assessment Grid Pain 1 Location : Head Laterality : Right Intensity : 6 GABRIEL SCOTT RN - 07/01/2011 6:09 SECURITY LEAD Resp Reassess Respiratory Patient Stated Symptoms : None Distress : None Airway : Patent Respirations : Unlabored Cough : None GABRIEL SCOTT RN - 07/01/2011 6:09 SECURITY LEAD CV Reassess CV Patient Stated Symptoms : None Skin Color : Normal for ethnicity Skin Description : Dry Skin Temperature : Warm GABRIEL SCOTT RN - 07/01/2011 6:09 SECURITY LEAD Neuro Reassess Neuro Patient Stated Symptoms : None Level of Consciousness : Alert Orientation : Oriented x 3 Characteristics of Speech : Appropriate for age Swallowing Difficulty/Aspiration Risk : None GABRIEL SCOTT RN - 07/01/2011 6:09 SECURITY LEAD Behavioral Health Screen/Safety Reassmt Affect/Behavior : Calm, Cooperative GABRIEL SCOTT RN - 07/01/2011 6:09 SECURITY LEAD Source: [employer] Document Id: [id number] SECURITY LEAD!28 RITY LEAD Gabriel Scott R.N. - 07/01/2011 5:53 AM CST ED Nurse Reassess ED Nurse Reassess Entered On: 07/01/2011 5:53 SECURITY LEAD Performed On: 07/01/2011 5:53 SECURITY LEAD by GABRIEL SCOTT RN Pain Assessment Pain Symptoms : Yes GABRIEL SCOTT RN - 07/01/2011 5:53 SECURITY LEAD Pain Pain Assessment Grid Pain 1 Location : Head Laterality : Right Intensity : 6 GABRIEL SCOTT RN - 07/01/2011 5:53 SECURITY LEAD Resp Reassess Respiratory Patient Stated Symptoms : None Distress : None Airway : Patent Respirations : Unlabored Cough : None GABRIEL SCOTT RN - 07/01/2011 5:53 SECURITY LEAD CV Reassess CV Patient Stated Symptoms : None Skin Color : Normal for ethnicity Skin Description : Dry Skin Temperature : Warm GABRIEL SCOTT RN - 07/01/2011 5:53 SECURITY LEAD Neuro Reassess Neuro Patient Stated Symptoms : None Level of Consciousness : Alert Orientation : Oriented x 3 Characteristics of Speech : Appropriate for age Swallowing Difficulty/Aspiration Risk : None GABRIEL SCOTT RN - 07/01/2011 5:53 SECURITY LEAD Behavioral Health Screen/Safety Reassmt Affect/Behavior : Calm, Cooperative GABRIEL SCOTT RN - 07/01/2011 5:53 SECURITY LEAD Source: [facility] [employer] Document Id: [id number] SECURITY LEAD!28 RITY LEAD Quintin De Paz M.D. - 07/01/2011 5:42 AM CST Chest pain Patient: DENICE OWENS Age: 31 years Sex: Female : 1980 Author: QUINTIN DE PAZ MD Attachments: None Associated Diagnosis: Dyspnea; Palpitation Basic Information Additional information:: Chief Complaint from Nursing Triage Note : Chief Complaint Description. 07/01/2011 5:28 SECURITY LEAD Chief Complaint Description WHILE GETTING READY THIS MORINIG FELT DIZZY AND TINGLY IN THE SHOWER. FEELING PASSED. IN THE CAR ABOUT 0440 HAD CHEST PAIN, RACING HEART, AND HER BODY FELT TINGLY. IS DOCTORING FOR THE RACING HEART. History of Present Illness The patient presents with chest pain. The onset was just prior to arrival. The course/duration of symptoms is constant. Location: generalized. Radiating pain:lower leg felt tingling and got concerned and came to ER. The character of symptoms is dull. The degree at onset was minimal. The degree at maximum was minimal. The degree at present is none. Exacerbating factors consist of none. The relieving factor is none. Risk factors consist of none. Prior episodes: none. Therapy today None. Associated symptoms: shortness of breath and anxiety. she noted foot getting cold taking shower and had episodes offeeling heart racing and had another epsidoes today and came in by EMS.. Review of Systems Constitutional symptoms: no fever no chills. Skin symptoms: no rash Eye symptoms: no recent vision problems no pain. Gastrointestinal symptoms: no abdominal pain no nausea, no vomiting. Neurologic symptoms: no headache no altered level of consciousness, no weakness. Additional review of systems information:All other systems reviewed and otherwise negative. Health Status Allergies: . Allergic Reactions (Selected) NKA Medications: . Medication Orders Sodium Chloride 0.9% (Saline flush), 10 mL, IV Push, PRN, PRN: Maintain IV access Prescriptions and Home Medications amitriptyline (amitriptyline 50 mg oral tablet), 50 mg, 1 tab(s), PO, Bedtime, 30 tab(s) Past Medical/ Family/ Social History Medical history: Medical history. Resolved acute pyelonephritis (590.10): Onset in 2010 at 30 years. Resolved. Bilateral tubal ligation ([id number]): Onset in 2008 at 28 years. Resolved. delivery NOS (669.71): Onset in 2001 at 21 years. Resolved. Headache Migraine (346.90): Onset in 2000 at 20 years. Resolved. section (68421721): Onset in 1999 at 19 years. Resolved. Appendectomy (714798810): Onset in 1997 at 17 years. Resolved. Surgical history: Surgical history. No active procedure history items have been selected or recorded. Family history: Family history. Hypertension Father Physical Examination Vital signs: Vital Signs. 07/01/2011 5:28 SECURITY LEAD Temperature Core 36.6 C Apical Heart Rate 112 /min HI Respiratory Rate 24 /min HI SpO2 100 % Systolic Blood Pressure 142 mmHg HI Diastolic Blood Pressure 109 mmHg >HHI Mean Arterial Pressure 120 mmHg BP Location Right upper General: No acute distress Skin: Warm. intact. moist. Head: Normocephalic. atraumatic. Neck: Supple. trachea midline. no tenderness. no JVD. Eye: Pupils are equal, round and reactive to light. extraocular movements are intact. normal conjunctiva. vision unchanged. Cardiovascular: Regular rate and rhythm. No murmur. Normal peripheral perfusion. Respiratory: Lungs are clear to auscultation. respirations are non-labored. breath sounds are equal.Symmetrical chest wall expansion. Chest wall: No tenderness. No deformity. Back: Nontender. Normal range of motion. Normal alignment. no step-offs. Musculoskeletal: Normal ROM. normal strength. no tenderness. no swelling. Gastrointestinal: Soft. Nontender. Non distended. Normal bowel sounds. No organomegaly. Genitourinary: No tenderness Neurological: Level of consciousness: appropriate for age. Speech: normal. Lymphatics: No lymphadenopathy Psychiatric: Cooperative. appropriate mood & affect. normal judgment. Medical Decision Making Differential Diagnosis:Atypical chest pain, palpitations. Results review:Lab results : Lab View. 07/01/2011 6:46 SECURITY LEAD UUA Source. UA Color LT. YELLOW UA Spec Grav 1.010 UA pH 7.0 UA Protein NEGATIVE mg/dL UA Glucose Negative UA Ketones NEGATIVE UA Bili Negative UA Urobilinogen 0.2 E.U./dl UA Blood Negative UA Nitrite NEGATIVE UA Leuk Est Negative UA WBC None Seen UA RBC None Seen UA Appear CLEAR 07/01/2011 5:44 SECURITY LEAD Hgb 12.3 g/dL Hct 35.8 % LOW WBC 4.5 x10(9)/L RBC 3.80 x10(6)uL LOW MCV 94 fL RDW 13.1 % Platelet 142 x10(9)/L Neutro % 54.8 % Lymph % 36.9 % [place] % 5.9 % Eos % 1.7 % Baso % 0.7 % Neutro Absolute 2.5 10(9)/L Lymph Absolute 1.7 x10(9)/L [place] Absolute 0.3 K/mm3 Eos Absolute 0.1 K/mm3 Baso Absolute 0.0 K/mm3 PT 14.0 second(s) INR 1.1 NA PTT 25.8 second(s) Sodium Lvl 138 mM/L Potassium Lvl 4.2 mM/L Chloride 107 mmol/L CO2 23 mmol/L AGAP 12 mmol/L Glucose Lvl 81 mg/dL Creatinine 0.7 mg/dL EGFR >60 mL/min NA EGFR >60 mL/min NA BUN 14.1 mg/dL BUN/Creat Ratio 20 NA Calcium Lvl 8.2 mg/dL LOW Troponin-T <0.010 ng/mL Impression and Plan Diagnosis Dyspnea (Discharge, Emergency medicine, Medical) Palpitation (Discharge, Emergency medicine, Medical) Discharge plan Condition: Improved. Dispositioned: To home. Patient was given the following educational materials: DYSPNEA, DYSPNEA. Limitations: Limited activity. Follow up with: ROYA BLACK Within As Needed; Follow up with primary care provider Within As Needed Call for follow up appointment For recheck If symptoms worsen. Counseled: Patient, Family. Notes: will plan to have patient follow up [facility] cardiology later this morning for further workup andplan. patient stable and resting fine now. she is worried about her heart being fast at times. Electronically Signed By: QUINTIN DE PAZ MD On: 07/14/2011 07:05 AM Modified by and Electronically Signed by: QUINTIN DE PAZ MD On: 07/01/2011 05:45 AM Source: [facility] [place] Document Id: [id number]} documented in this encounter Miscellaneous Notes Miscellaneous - Daisy Mckeon R.N. - 07/01/2011 9:15 AM CST Adult Pain Assessment Adult Pain Assessment Entered On: 07/01/2011 9:44 SECURITY LEAD Performed On: 07/01/2011 9:15 SECURITY LEAD by DAISY MCKEON RN Pain Pain Assessment Grid Pain 1 Location : Head Laterality : Right Intensity : 5 DAISY MCKEON RN - 07/01/2011 9:44 SECURITY LEAD Source: [facility] [place] Document Id: [id number] SECURITY LEAD!7 RITY LEAD Miscellaneous - Daisy Mckeon R.N. - 07/01/2011 9:15 AM CST Valuables/Belongings Valuables/Belongings Entered On: 07/01/2011 9:45 SECURITY LEAD Performed On: 07/01/2011 9:15 SECURITY LEAD by DAISY MCKEON RN Valuables/Belongings Valuables/Belongings Grid Valuables with Patient Clothes, Patient Valuables : Coat, Pants, Shirt, Shoes Electronic Devices : None Jewelry : None Monetary Items : None Personal Devices : None Miscellaneous : None DAISY MCKEON RN - 07/01/2011 9:44 SECURITY LEAD Belongings Sent Home With : all belongings with patient Home Medication Disposition : None brought in with patient DAISY MCKEON RN - 07/01/2011 9:44 SECURITY LEAD Source: [facility] [place] Document Id: [id number] SECURITY LEAD!12 RITY LEAD Miscellaneous - Daisy Mckeon R.N. - 07/01/2011 9:00 AM CST Communication Note Communication Note Entered On: 07/01/2011 9:42 SECURITY LEAD Performed On: 07/01/2011 9:00 SECURITY LEAD by DAISY MCKEON RN Communication Assessment Communication Note : call placed to Dr. Nolan's nurse. report given to nurse. Dr's nurse stated pt could be brought up to office to be see. Plan explained to patient and her and they are in agreement to set up a local primary dr. Patient taken to Dr. Nolan's office by via chair. DAISY MCKEON RN - 07/01/2011 9:40 SECURITY LEAD Source: [employer] Document Id: [id number] SECURITY LEAD!3 RITY LEAD Jennifercellmadeline - Gbariel Scott R.N. - 07/01/2011 6:51 AM CST Communication Note Communication Note Entered On: 07/01/2011 6:51 SECURITY LEAD Performed On: 07/01/2011 6:51 SECURITY LEAD by GABRIEL SCOTT RN Communication Assessment Communication Note : PATIENT UP TO BATHROOM. TOLERATED GOOD. URINE SAMPLE OBTAINED AND SENT TO LAB. GABRIEL SCOTT RN - 07/01/2011 6:51 SECURITY LEAD Source: [employer] Document Id: [id number] SECURITY LEAD!3 RITY LEAD Jennifercellmadeline - Gabriel Scott R.N. - 07/01/2011 5:36 AM CST Communication Note Communication Note Entered On: 07/01/2011 5:36 SECURITY LEAD Performed On: 07/01/2011 5:36 SECURITY LEAD by GABRIEL SCOTT RN Communication Assessment Communication Note : IN ROOM WITH PATIENT GABRIEL SCOTT RN - 07/01/2011 5:36 SECURITY LEAD Source: [facility] [place] Document Id: [id number] SECURITY LEAD!3 RITY LEAD Miscellaneous - Gabriel Scott R.N. - 07/01/2011 5:30 AM CST Communication Note Communication Note Entered On: 07/01/2011 5:36 SECURITY LEAD Performed On: 07/01/2011 5:30 SECURITY LEAD by GABRIEL SCOTT RN Communication Assessment Communication Note : LAB IN ROOM FOR EKG AND BLOOD DRAW GABRIEL SCOTT RN - 07/01/2011 5:36 SECURITY LEAD Source: [facility] [place] Document Id: [id number] SECURITY LEAD!3 RITY LEAD Miscellaneous - Conversion, Historical Provider Ser - 07/01/2011 5:20 AM SECURITY LEAD Facility Charge Ticket Facility Charge Ticket Entered On: 07/07/2011 15:37 CDT Performed On: 07/01/2011 5:20 SECURITY LEAD by REGINA MELLO Facility Charge TVL Level for Facility Charge Ticket : Level 5 Mode of Arrival ED : Amb[facility] Mode of Arrival Interpreted : BLS/Police [place] Process Management : None [facility] Order Management : EKG, RT, Ancillary Services, Lab tests 30 Minutes Critical Care : No [place] Nursing Assessment : Triage and 6+ nursing assessments [facility] Disposition : Discharge [place] Total Points with Diagnosis Control : 16 [place] Visit Level : 28278 Level 5 REGINA MELLO - 07/07/2011 15:37 CDT Source: [facility] [place] Document Id: [id number]!12 documented in this encounter Plan of Treatment Not on filedocumented as of this encounter Procedures Procedure Name Priority Date/Time Associated Comments Diagnosis DRUG SCREEN URINE Routine 07/01/2011 6:46 AM Resu lts for this SECURITY LEAD procedure are i n the results section. URINALYSIS WITH Routine 07/01/2011 6:46 AM Result s for this MICROSCOPIC SECURITY LEAD procedure are i n the results section. AUTOMATED DIFFERENTIAL, Routine 07/01/2011 5:44 AM Results for this B SECURITY LEAD procedure are i n the results section. ACTIVATED PARTIAL Routine 07/01/2011 5:44 AM Resu lts for this THROMBOPLASTIN TIME SECURITY LEAD procedur e are in (APTT), P the results section. PROTHROMBIN TIME (PT), Routine 07/01/2011 5:44 AM Results for this P SECURITY LEAD procedure are i n the results section. CBC WITH DIFFERENTIAL, Routine 07/01/2011 5:44 AM Results for this B SECURITY LEAD procedure are i n the results section. TROPONIN T, 5TH GEN, P Routine 07/01/2011 5:44 AM Results for this SECURITY LEAD procedure are i n the results section. ETHANOL, S Routine 07/01/2011 5:44 AM Results f or this SECURITY LEAD procedure are i n the results section. BASIC METABOLIC PANEL, Routine 07/01/2011 5:44 AM Results for this S/P SECURITY LEAD procedure are i n the results section. documented in this encounter Results Drug Screen Urine (07/01/2011 6:46 AM SECURITY LEAD) [facility] [employer] Method Time Signature HX U Negative Negative POWERCHART Phencyclidine HX U Benzodia Negative Negative POWERCHART Scrn Cocaine Negative Negative POWERCHART HXU Amphet Scrn Positive Negative POWERCHART Carboxy-THC Negative Negative POWERCHART Immunoassay Screen Opiates Negative Negative POWERCHART Barbiturates Negative Negative POWERCHART HXU Tricyclic Scr Negative Negative POWERCHART Specimen (Source) Anatomical Collection Method Collection Time Re ceived Time Location / / Volume Laterality Urine 07/01/2011 6:46 AM SECURITY LEAD Quintin De Paz M.D. LAB URINE ORDERABLES Performing Organization Address City/State/ZIP Code Phon e Number POWERCHART Urinalysis, Complete, Includes Microscopic (07/01/2011 6:46 AM SECURITY LEAD) [facility] [employer] Method Time Signature Source Clean Void POWERCHART Urine HXUr Color LT. YELLOW POWERCHART Appearance CLEAR POWERCHART Glucose Negative Negative POWERCHART HXBILIRUBIN Negative Negative POWERCHART Ketones, QL(U) NEGATIVE POWERCHART Specific 1.010 1.001 - POWERCHART [place], POCT, U 1.030 HXBLOOD Negative Negative POWERCHART pH, POCT, Urine 7.0 4.5 - 8.0 POWERCHART Protein, Ur, Dip NEGATIVE MGDL POWERCHART Urobilinogen 0.2 1.0 EUDL POWERCHART HXNITRITE NEGATIVE POWERCHART Leukocyte Negative Negative POWERCHART Esterase HXUr WBC None Seen None Seen POWERCHART Red Blood Cell None Seen None Seen POWERCHART Clump, Urine Specimen (Source) Anatomical Collection Method Collection Time Re ceived Time Location / / Volume Laterality Urine 07/01/2011 6:46 AM SECURITY LEAD Quintin De Paz M.D. LAB URINE ORDERABLES Performing Organization Address City/State/ZIP Code Phon e Number POWERCHART Automated Differential (07/01/2011 5:44 AM SECURITY LEAD) P athologist Signature Neutro % 54.8 41.0 - POWERCHART 77.0 Lymphocytes % 36.9 20.0 - POWERCHART 45.0 HX [place] % 5.9 0.0 - 12.0 POWERCHART HX Eos % 1.7 0.0 - 6.0 POWERCHART HX Baso % 0.7 0.0 - 2.0 POWERCHART Absolute 2.5 1.7 - 7.0 POWERCHART Neutrophils 109L Lymphocytes 1.7 0.9 - 2.9 POWERCHART X109L Monocytes 0.3 0.0 - 0.8 POWERCHART KMM3 Eosinophils 0.1 0.0 - 0.5 POWERCHART KMM3 Absolute 0.0 0.0 - 0.2 POWERCHART Basophil KMM3 Specimen Anatomical Collection Method Collection Time Receive d Time (Source) Location / / Volume Laterality Blood 07/01/2011 5:44 AM 2 5:44 SECURITY LEAD AM SECURITY LEAD Quintin De Paz M.D. LAB BLOOD ADD-ON Performing Organization Address City/State/ZIP Code Phon e Number POWERCHART (ABNORMAL) CBC with Differential (07/01/2011 5:44 AM SECURITY LEAD) Analysis Performed At Patho logist Time Signature Leukocytes 4.5 3.8 - 10.0 POWERCHART X109L Erythrocytes 3.80 (L) 3.85 - POWERCHART 5.01 X106UL Hemoglobin 12.3 12.0 - POWERCHART 15.5 GDL Hematocrit 35.8 (L) 36.0 - POWERCHART 48.0 MCV 94 80 - 100 POWERCHART FL HX RDW 13.1 10.0 - POWERCHART 15.0 Platelet Count 142 140 - 400 POWERCHART X109L Specimen (Source) Anatomical Collection Method Collection Time Re ceived Time Location / / Volume Laterality Blood 07/01/2011 5:44 AM SECURITY LEAD Quintin De Paz M.D. LAB BLOOD ADD-ON Performing Organization Address City/State/ZIP Code Phon e Number POWERCHART APTT (Activated Partial Thromboplastin Time) (07/01/2011 5:44 AM SECURITY LEAD) Analysis Performed At Patho logist Time Signature Prothrombin 25.8 22.0 - 35.0 POWERCHART Time, P SECONDS Specimen (Source) Anatomical Collection Method Collection Time Re ceived Time Location / / Volume Laterality Blood 07/01/2011 5:44 AM SECURITY LEAD Quintin De Paz M.D. LAB BLOOD ADD-ON Performing Organization Address City/[facility]/ZIP Code Phon e Number POWERCHART PT (Prothrombin Time) with INR (07/01/2011 5:44 AM SECURITY LEAD) Analysis Performed At Patho logist Time Signature Prothrombin 14.0 12.0 - 14.6 POWERCHART Time, P SECONDS INR 1.1 POWERCHART Specimen (Source) Anatomical Collection Method Collection Time Re ceived Time Location / / Volume Laterality Blood 07/01/2011 5:44 AM SECURITY LEAD Quintin De Paz M.D. LAB BLOOD ADD-ON Performing Organization Address City/State/ZIP Code Phon e Number POWERCHART Ethanol Level (07/01/2011 5:44 AM SECURITY LEAD) P athologist Signature Ethanol, S <10 <=10.0 MGDL POWERCHART Specimen (Source) Anatomical Collection Method Collection Time Re ceived Time Location / / Volume Laterality Blood 07/01/2011 5:44 AM SECURITY LEAD Quintin De Paz M.D. LAB BLOOD NON ADD-ON Performing Organization Address City/State/ZIP Code Phon e Number POWERCHART Troponin T (07/01/2011 5:44 AM SECURITY LEAD) P athologist Signature Troponin T, S <0.010 0.000 - POWERCHART 0.010 NGML Specimen (Source) Anatomical Collection Method Collection Time Re ceived Time Location / / Volume Laterality Blood 07/01/2011 5:44 AM SECURITY LEAD Quintin De Paz M.D. LAB BLOOD ADD-ON Performing Organization Address City/State/ZIP Code Phon e Number POWERCHART (ABNORMAL) BMP (Basic Metabolic Panel) (07/01/2011 5:44 AM SECURITY LEAD) P athologist Signature Glucose 81 70 - 139 POWERCHART MGDL Comment: Reference Range: 70 - 99 mg/dL - Fasting 70 - 139 mg/dL - Non Fasting BUN (Blood Urea Nitrogen), S 14.1 6.0 - 21.0 MGDL POWERCHART Creatinine, S 0.7 0.6 - 1.4 MGDL POWERCHART HXeGFR (MDRD) >60 MLMIN POWERCHART eGFR Black/ >60 MLMIN PO WERCHART BUN/Creatinine Ratio 20 POWERCHAR T Sodium, S 138 136 - 148 MML POWERCHART Potassium, S 4.2 3.5 - 5.0 MML POWERCHART Chloride, S 107 100 - 111 MMOLL POWERCHART CO2 Total 23 21 - 32 MMOLL POWERCHART Anion Gap 12 10 - 20 MMOLL POWERCHART Calcium, Total, S 8.2 (L) 8.4 - 10.4 MGDL POWERC RUIZ Comment: Falsely lowered Calcium results have been associated with gadolinium contrast in MRI scans. If this is a poss ibility, contact lab for alternatives Specimen (Source) Anatomical Collection Method Collection Time Re ceived Time Location / / Volume Laterality Blood 07/01/2011 5:44 AM SECURITY LEAD Quintin De Paz M.D. LAB BLOOD ADD-ON Performing Organization Address City/State/ZIP Code Phon e Number POWERCHART documented in this encounter Visit Diagnoses Not on filedocumented in this encounter
--- OUTSIDE RECORDS SUMMARY | 2021-12-10 15:40 | XMS_ITS | Encounter Summary ---
:1980 Author Organization [facility] Address [address] [place] [address] Care Team Providers Name Role Phone Unavailable Primary Care Provider Unavailable Encounter Details Date Type Department Care Team Description 09/24/2010 Hospital Encounter HX [facility] Valentine Prado M.D. 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 - 09/24/2010 12:00 AM CDT [id number] HISTORY OF PRESENT ILLNESS Ms. Arcos is in for a followup of her right knee. She has really not gotten any better. She continues to have lateral knee pain. PHYSICAL EXAM I reexamined her extensively. She is tender over the lateral joint line. Taylor's causes her lateral joint line pain but no click or catch is noted. She saw some residual bruising. Ligamentous testing to my exam appears to be intact. IMPRESSION/REPORT/PLAN Discussed with her she is having continued lateral knee pain. She has not resolved with time or conservative treatment. An MRI is indicated. We will go ahead and get the MRI and followup with her for the results. I saw the patient as did Dolores Lang. 15 minutes, most of which was discussion. NURSE NOTE Patient escorted to room. Chief complaint taken. David Woodson M.D./sugar Electronically Signed By: DAVID WOODSON MD On: 09/30/2010 08:34 AM Source: [facility] [employer] Document Id: [id number] documented in this encounter Miscellaneous Notes Miscellaneous - Mari Paz, L.P.N. 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 Patient informed that insurance may or may not cover this Faucility she wished to proceed with scheduling for 09/26/10. MARCELA YOU - 09/24/2010 15:45 CDT Chief Complaint: right leg / knee injury fell in July on some stairs. Having lateral knee pain Systolic Blood Pressure: 112mmHg Diastolic Blood Pressure: 78mmHg NIBP Mean: 89mmHg BP Location: Right upper extremity (Comment: regular cuff [MARI PAZ - 09/24/2010 14:54 CDT] ) PARADISEMARI AL - 09/24/2010 14:54 CDT Subjective Pain Symptoms: Yes PARADISEMARI AL - 09/24/2010 14:54 CDT Pain Pain Assessment Grid Pain 1 Location: Knee Laterality: Right Intensity: 4 MARI PAZ - 09/24/2010 14:54 CDT Dependent Habits Tobacco Use/Currently Using: No MARI PAZ - 09/24/2010 14:54 CDT Caffeine Use Grid Caffeine Use: Current Type: Soft drinks Frequency: Daily MARI PAZ - 09/24/2010 14:54 CDT Recreational Drug Use Grid Drug Use: None PARADISEMARI AL - 09/24/2010 14:54 CDT Allergy Allergies (Active) NKA Estimated Onset Date: Unspecified ; Created By: BRITTANY WALTON; Reaction Status: Active ; Category: Drug ; Substance: NKA ; Type: Allergy ; Updated By: BRITTANY WALTON; Reviewed Date: 09/24/2010 14:54 CDT Source: [facility] [employer] [place] Document Id: [id number] CDT!3 Telephone Encounter - Carol Ann Gates R.N. - 09/15/2010 2:44 PM CDT General Message Document Contains Addenda Addendum by BEN PETYT on 15 Sep 2010 15:51:25 CDT Phan was notified that Rx had been refilled. Addendum by DOLORES LANG PA-C on 15 Sep 2010 15:22:41 CDT From: DOLORES LANG PA-C To: [facility] Nurse; Sent: 09/15/2010 15:22:41 CDT Subject: RE: General Message rx sent to pharmacy From: CAROL ANN GATES RN ([facility] Ortho Nurse) To: DOLORES LANG PA-C; Sent: 09/15/2010 14:44:59 CDT Subject: General Message Patient's Phan meng, called staing has appt scheduled with for 09/24/10 for further evaluation oif right knee pain. She would like refill of Tramdol to get to appt please. Last appt withyou 08/19/10 and last refill of medication was 08/27. can be reached at [phone] if done. Pharmacy is [facility] Source: [facility] [employer]CHART Document Id: [id number] documented in this encounter Plan of Treatment Not on filedocumented as of this encounter Visit Diagnoses Not on filedocumented in this encounter
--- OUTSIDE RECORDS SUMMARY | 2021-12-10 15:40 | XMS_ITS | Encounter Summary ---
:1980 Author Organization [facility] Address [address] [place] [address] Care Team Providers Name Role Phone Unavailable Primary Care Provider Unavailable Encounter Details Date Type Department Care Team Description 12/19/2010 Hospital Encounter HX [facility] Mj Morrow M.D. 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 - 12/19/2010 12:00 AM CDT [id number] HISTORY OF PRESENT ILLNESS Denice comes in as established patient, seen Dr. Johnson in the past. She has got proximal fibula fracture on the right. This was diagnosed by an MRI. The problem is the patient was worried because it still hurts. Dr. Johnson saw her a little less than 2 weeks ago and took her off of weight with crutches and this has still been hurting and swelling. She is concerned, it is over 4 months since the injury. We did talk about the mechanism of injury. She tripped up the stairs and ended up falling down. It was quite significant. PHYSICAL EXAM Her exam today shows that she still has quite a bit of swelling over the proximal aspect of the fibula. There is some ecchymosis which is resolving both above the fibular head and anterior to the fibular head. She has pain especially with varus stress on the lateral collateral ligament. No pain with valgus stress. She has full range of motion but does not like the knee fully extended. Direct palpation in the area of the proximal fibula is very tender. The patient's leg is otherwise neurovascularly intact. There is no evidence of compartment syndrome. No evidence of complex regional pain syndrome at this time. I did review the MRI it shows a proximal fibular avulsion. IMPRESSION/REPORT/PLAN In my opinion in think that this fracture should be immobilized in addition to nonweightbearing. I think it has just proven itself not to be resolving with simple nonweightbearing. I think there is a lot of tension where the lateral collateral ligament is inserted and this is keeping the fracture from healing. I think if we immobilize and keep her weight off it has a better chance to heal and she will keep from reinjuring it which is I think what she has been doing. I will have her wear this cast for 6 weeks, have her followup with Dr. Johnson at that time. At that time examination and 4 views of the knee prior to being seen. We will probably start physical therapy at that point. If she has any other issues or concerns she will contact us. Cast care instructions were given. 15 minutes spent with her, most of the time in counseling and coordination of care. Maricarmen Morrow M.D./delvin Electronically Signed By: MARICARMEN MORROW MD On: 12/22/2010 01:46 PM Source: [facility] [employer] Document Id: [id number] documented in this encounter Procedure Notes Pauline Davis L.P.N. - 12/19/2010 2:33 PM CDT Cast Application Cast Application Entered On: 12/19/2010 14:34 CDT Performed On: 12/19/2010 14:33 CDT by PAULINE DAVIS Cast Application Site Assessment Pre-casting: No abnormalities Casting Material: Fiberglass Skin Protection Activities: Padding, Stockinette Type of Cast: Long leg Extremity Side-Orthopedic Device: Right Cast Application Patient Response: tolerated well PAULINE DAVIS - 12/19/2010 14:33 CDT Education Cast Care Education Grid Topics: Cast care Individuals Taught: Patient Barriers to Learning: None evident Teaching Method: Explanation, Printed materials Teaching Evaluation: Verbalizes understanding JUDY, PAULINE Lin - 12/19/2010 14:33 CDT Source: [facility] [employer] Document Id: [id number] CDT!16 documented in this encounter Miscellaneous Notes Miscellaneous - Pauline Davis L.P.N. 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 Onset of Symptoms: 08/04 Systolic Blood Pressure: 92mmHg Diastolic Blood Pressure: 62mmHg NIBP Mean: 72mmHg BP Location: Left upper extremity (Comment: regular cuff [JUDYCYNTHIAPATRICE Lin 12/19/2010 13:10 CDT] ) JUDYCYNTHIAPATRICE Lin - 12/19/2010 13:10 CDT Subjective Pain Symptoms: Yes JUDYCYNTHIADY Riley 12/19/2010 13:10 CDT Pain Pain Assessment Grid Pain 1 Location: Lower leg Laterality: Right Intensity: 8 PAULINE DAVIS 12/19/2010 13:10 CDT Dependent Habits Tobacco Use/Currently Using: No Tobacco Use/Last 12 months: No JUDYCYNTHIADY Riley 12/19/2010 13:10 CDT Caffeine Use Grid Caffeine Use: Current Type: Soft drinks Frequency: Daily JUDY PAULINE M 12/19/2010 13:10 CDT Recreational Drug Use Grid Drug Use: None JUDY, PAULINE Riley 12/19/2010 13:10 CDT Allergy Allergies (Active) NKA Estimated Onset Date: Unspecified ; Created By: BRITTANY WALTON; Reaction Status: Active ; Category: Drug ; Substance: NKA ; Type: Allergy ; Updated By: BRITTANY WALTON; Reviewed Date: 12/19/2010 13:08 CDT Source: [facility] [employer] Document Id: [id number] CDT!27 documented in this encounter Plan of Treatment Not on filedocumented as of this encounter Visit Diagnoses Not on filedocumented in this encounter
--- OUTSIDE RECORDS SUMMARY | 2021-12-10 15:40 | XMS_ITS | Encounter Summary ---
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 - 08/24/2010 12:00 AM CDT [id number] HISTORY OF PRESENT ILLNESS Patient is a 30-year-old female here with her with complaint of headache, nausea and lightheadedness going on since last night. She states the headache is not like her usual migraine. It is all over the head and throbbing in nature. She generally does not feel well because of it. She is not having any other more specific symptoms such as runny nose, congestion, sore throat, stomachache, vomiting or diarrhea. Patient's last menstrual period was remote. She has had ablation. She has also had a tubal. Patient has recent history of a presyncopal episode. She also had apparent tachycardia during that episode. She had an electrocardiogram that she did bring in to her provider family practice appointment. That was sent for scanning but is not yet scanned. She was seen by a family practice provider on . Had a repeat electrocardiogram at that time which was normal with a rate of 73 and no acute changes. Patient today is not feeling palpitations or any chest discomfort. She is not feeling quite the way she did during her original episode that prompted an electrocardiogram a week or so ago. Patient had a recent leg injury and was taking Vicodin. She is no longer taking that. She did try Ultram today for the headache, not for the leg pain, so she is not taking that routinely either. PHYSICAL EXAM VITAL SIGNS: Reviewed and normal, other than pulse 111 initially, 130 during my recheck. GENERAL: Patient appears mildly anxious. She is tearful but cooperative. HEENT: Eyes are clear. Ears normal. Mouth is moist. Pharynx nonerythematous. NECK: Without lymphadenopathy. LUNGS: Are clear. HEART: Regular with no murmur or rub appreciated. Neuromuscular exam grossly intact. LABORATORY/RADIOLOGY Electrocardiogram repeated today shows a tachycardia at 102, but this is a sinus tach with no other obvious changes. IMPRESSION/REPORT/PLAN 1. Headache. Patient was given Toradol 30 mg intramuscularly x1 and Phenergan 25 mg intramuscularly x1. Patient did feel improved with her nausea and headache. Rating her pain initially as a 9/10 and after approximately 20 minutes a 4/10. She will return home and continue symptomatic care for headache and lightheadedness. 2. Tachycardia. Unclear etiology. Patient does not seem to be dehydrated. She had labs recently that found normal chemistries and normal TSH. Those were not repeated today. She may have postural orthostatic sinus tachycardia (POTS) or syndrome of inappropriate sinus tachycardia. I recommend the patient follow up with her primary care provider. I did give her a prescription for atenolol 25-mg tablet only to try once daily. She will see how she responds to that; see if this seems to reduce her symptoms at all. She may also have anxiety disorder of some sort and again should follow up with primary care to investigate that issue Julia Topete M.D./dennys Electronically Signed By: JULIA TOPETE MD On: 08/27/2010 12:44 Source: [facility] MHSDOLBEYNONRADSYS Document Id: [id number] documented in this encounter Miscellaneous Notes Miscellaneous - Jeannine Ross R.N. - 08/27/2010 1:54 PM CDT Medication Refill Msg Document Contains Addenda Addendum by JEANNINE ROSS RN on 28 Aug 2010 08:55:26 CDT Answering service continues to states answering machine has not yet been set up by prescriber. Willawait return call. Addendum by CHITO BETTS PA-C on 28 Aug 2010 08:15:39 CDT From: CHITO BETTS PA-C To: [facility] Ortho/Pod/PMNR/Neuro Triage Nurse; Sent: 08/28/2010 08:15:39 CDT Subject: RE: Medication Refill Msg sent to [facility], should have MRI if still painful. Addendum by CHITO BETTS PA-C on 28 Aug 2010 08:15:14 CDT Submitted: Order Drug: tramadol (tramadol 50 mg oral tablet) 2 tab(s) PO q6hr Qty: 50 tab(s) Refills: 0 Pain Fax - [facility] Signed by CHITO BETTS PA-C 08/28/2010 08:14:57 From: JEANNINE ROSS RN (AL Ortho/Pod/PMNR/Neuro Triage Nurse) To: CHITO BETTS; Sent: 08/27/2010 13:54:15 CDT Subject: Medication Refill Msg Caller is: ( ) Patient ( ) Mother ( ) Father ( ) Spouse ( ) Daughter ( ) Son ( ) Pharmacy ( ) Other: Physician: Chito Betts PAC Patient MRN #: Reviewed Allergies: ( ) Yes ( ) No ( )Call to Pharmacy: [facility] [place] ( )Fax to Pharmacy: ( )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 Name of Medication: TRAMADOL 50 mg Dosage: Dispense: #50 ( ) New ( ) Refill # of Refills: Comment: Last visit and refill: 08/19/10 for right sided knee pain at which time you had stated torin should have an MRI if knee pain continued. Patient called at home. Unable to leave message as itstated, answering service had not yet been set up by subscriber. 2. Name of Medication: Dosage: Dispense: ( ) New ( ) Refill # of Refills: Comment: 3. Name of Medication: Dosage: Dispense: ( ) New ( ) Refill # of Refills: Comment: 4. Name of Medication: Dosage: Dispense: ( ) New ( ) Refill # of Refills: Comment: Source: [facility] [email or web address] Document Id: [id number] Electronically signed by Conversion, [facility] Clinical Psychologist Licensed [id number] at 09/27/2016 8:00 PM CDT Miscellmadeline - Julia Topete M.D. - 08/24/2010 4:47 PM CDT Ambulatory Patient Summary [facility] , Visit Information Name: JEANNINE CRUZ Current Date: 08/24/2010 16:47:31 Primary Care Provider: ROYA BLACK MD Your Medications Here is a list of your medications. It is important to take your medications as directed. Use a pillbox or chart to help remind you to take your medications. Please let your doctor or nurse know if you have problems taking your medications. Medication/Strength Dose Route Frequency Indications/Special Instructions/Comments atenolol (atenolol 25 mg oral tablet) 25 mg Oral once a day tramadol (tramadol 50 mg oral tablet) 100 mg Oral every 6 hours as needed for Pain cyclobenzaprine (Flexeril 10 mg oral tablet) naproxen [...] Pap Smear every 3 years Women 21-65 08/24/2010 Checks for signs of cancer of the cervix. Lipid Panel every 5 years Age 20-75 08/24/2010 Checks blood for good (HDL) and bad (LDL) cholesterol. Know your numbers, they are one indicator of your risk for heart attack and stroke. Vaccine: Tetanus every 10 years 08/24/2010 Immunization to help prevent you from getting the seriousdisease Tetanus (Lockjaw). Your Upcoming Appointments Date Time Location Reason Provider 08/27/2010 13:30 [facility] LEG PAIN/RCK SAME DAY PER JEANNINE Your Goals/Additional instructions: Source: [facility] POWERCHART Document Id: [id number] Electronically signed by Zac [facility] Clinical Psychologist Licensed [id number] at 09/27/2016 8:00 PM CDT Miscellaneous - Julia Topete M.D. - 08/24/2010 4:47 PM CDT Ambulatory Depart Summary [facility] , Visit Information Name: JEANNINE CRUZ Current Date: 08/24/2010 16:47:30 Primary Care Provider: ROYA BLACK MD JEANNINE CRUZ has been given the following list of medications: Your Medications It is important to take your medications as directed. Use a pill box or chart to help remind you to take your medications. Please let your doctor or nurse know if you have problems taking your medications. Medication/Strength Dose Route Frequency Indications/Special Instructions/Comments atenolol (atenolol 25 mg oral tablet) 25 mg Oral once a day tramadol (tramadol 50 mg oral tablet) 100 mg Oral every 6 hours as needed for Pain cyclobenzaprine (Flexeril 10 mg oral tablet) naproxen (naproxen 250 mg oral tablet) 1 tab(s) Oral two times a day with meals Additional Information: Source: [facility] POWERCHART Document Id: [id number] Electronically signed by [facility]ac [facility] Clinical Psychologist Licensed [id number] at 09/27/2016 8:00 PM CDT Miscellaneous - Conversion, Historical Provider Ser - 08/24/2010 2:22 PM CDT 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 Entered On: 08/24/2010 14:26 CDT Performed On: 08/24/2010 14:22 CDT by BRITTANY WALTON Intake Chief Complaint: feels faint had a abnormal then a normal ekg Temperature Core: 36.8C(Converted to: 98.2DegF) Peripheral Pulse Rate: 111/min (HI) Respiratory Rate: 18/min Systolic Blood Pressure: 118mmHg Diastolic Blood Pressure: 82mmHg NIBP Mean: 94mmHg BP Location: Right upper extremity (Comment: regular cuff used [BRITTANY WALTON - 08/24/2010 14:22 CDT] ) BRITTANY WALTON - 08/24/2010 14:22 CDT Subjective Pain Symptoms: Yes BRITTANY WALTON - 08/24/2010 14:22 CDT Pain Pain Assessment Grid Pain 1 Location: Head Intensity: 8 BRITTANY WALTON - 08/24/2010 14:22 CDT Dependent Habits Tobacco Use/Currently Using: No BRITTANY WALTON - 08/24/2010 14:22 CDT Caffeine Use Grid Caffeine Use: Current Type: Soft drinks Frequency: Daily BRITTANY WALTON - 08/24/2010 14:22 CDT Recreational Drug Use Grid Drug Use: None BRITTANY WALTON - 08/24/2010 14:22 CDT Allergy Allergies (Active) NKA Estimated Onset Date: Unspecified ; Created By: BRITTANY WALTON; Reaction Status: Active ; Category: Drug ; Substance: NKA ; Type: Allergy ; Updated By: BRITTANY WALTON; Reviewed Date: 08/24/2010 14:20 CDT [facility] Document Id: [id number] CDT!27 Miscellaneous - Conversion, Historical Provider Ser - 08/24/2010 2:22 PM CDT Health Assessment Health Assessment Entered On: 08/24/2010 14:26 CDT Performed On: 08/24/2010 14:22 CDT by BRITTANY WALTON Nutrition Risk Factors by History Adult: None BRITTANY WALTON - 08/24/2010 14:22 CDT Functional Current Daily Living Assistance: None BRITTANY WALTON - 08/24/2010 14:22 CDT Dependent Habits Tobacco Use/Currently Using: No Alcohol Use: No BRITTANY WALTON - 08/24/2010 14:22 CDT Caffeine Use Grid Caffeine Use: Current Type: Soft drinks Frequency: Daily BRITTANY WALTON - 08/24/2010 14:22 CDT Recreational Drug Use Grid Drug Use: None BRITTANY WALTON - 08/24/2010 14:22 CDT Psychosocial Domestic Concerns: None BRITTANY WALTON - 08/24/2010 14:22 CDT Advance Directive Advanced Directives: No BRITTANY WALTON - 08/24/2010 14:22 CDT Educ Needs Learning Style Preference Adult Grid Patient: None Family: BRITTANY Welch 08/24/2010 14:22 CDT [facility] Document Id: [id number] CDT!24 documented in this encounter Plan of Treatment Not on filedocumented as of this encounter Visit Diagnoses Not on filedocumented in this encounter
--- OUTSIDE RECORDS SUMMARY | 2021-12-10 15:40 | XMS_ITS | Encounter Summary ---
:1980 Author Organization [facility] Address [address] [place] [address] Care Team Providers Name Role Phone Unavailable Primary Care Provider Unavailable Encounter Details Date Type Department Care Team Description 07/01/2011 Hospital Encounter HX NO MAPPING Quintin De Paz M.D. 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
--- OUTSIDE RECORDS SUMMARY | 2021-12-10 15:40 | XMS_ITS | Encounter Summary ---
:1980 Author Organization [facility] Address [address] [place] [address] Care Team Providers Name Role Phone Unavailable Primary Care Provider Unavailable Encounter Details Date Type Department Care Team Description 07/19/2011 Hospital Encounter [facility]X [facility] [place] P.A.-C. 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 - 07/20/2011 12:25 PM CDT Talked to Denice over the phone after her recent ER visit. She says that she still gets these palpitations specially when its quiet and while sleeping. Does feel dizzy too. She did go to the gandy dancer at the [facility] who suggested anxiety attack. She would like to be evaluated here but has anappointment later in July. I have suggested that she get a 24hr holter monitoring. She is quite symptomatic as well. Metoprolol 25 mg twicw a day after the monitoring is done. A baseline ECHO will also be obtained. She agrees with the plan. Carlos Electronically Signed By: CARLOS VANG MD On: 07/20/2011 12:34 PM Source: [facility] POWERCHART Document Id: [id number] Denice Wood P.A.-C. - 07/19/2011 12:00 AM CDT [id number] CHIEF COMPLAINT/REASON FOR VISIT 1. Headache. 2. Abdominal pain. 3. Increased blood pressure. 4. Heart palpitations. HISTORY OF PRESENT ILLNESS Patient has been treated for these symptoms both in ER, urgent care and saw Sly Motta R.N. C.N.P. last week. She states that they gave her some medication for the insomnia that she has, but that is not working and she just is not sleeping at all and her confirms this. She states that she is developing again a very bad headache that has really only resolved with treatment with Dilaudid and Haldol which is done in the emergency room. She has heart palpitations that have been worked up and she does have dobutamine stress echo that is scheduled for Wednesday of this week and a cardiology appointment in July. Today she feels like she is having more nausea, stomach pain although she did eat lunch today, just increased restlessness as well as an increased blood pressure. The symptoms are very similar to everything she has had before she comes in to Urgent Care this evening at November 20 primarily because of the headache. The feeling is that the headache is the canal driver of some of the other issues she is having such as the abdominal pain. She states that the abdominal pain is generally on the left more than the right. She states that this headache is like the headaches that she has had recently but atypical from her regular migraine headaches. CURRENT MEDICATIONS Reviewed. ALLERGIES Reviewed. PHYSICAL EXAM VITAL SIGNS: Blood pressure 122/96 with a recheck of 120/96. Temperature is 37. Pulse rate 112. Respirations 16. O2 is 99% on room air. The patient is laying on the exam table when I enter the room. She never really did sit up the entire time. The headache is the predominant symptom that she needs to have taken care of. ABDOMEN: Is soft without guarding or rebound. A little bit of tenderness to palpation in the left lower quadrant. She is not exactly sure when her last bowel movement was because she has had diarrhea within the last couple of days. Also concerned about the restlessness and sleep. Given the kind of medications that she is using for her headaches and the fact that it is recalcitrant to medications prescribed out of urgent care I did contact the emergency room physician oY Machado M.D. asking that they would please see this patient for the headache and the management of that. I am not sure how much needs to be done on the other symptoms as this has been worked up in the past and these symptoms have not changed. She was escorted to the emergency room by our nurses where a room was ready for her. Lenny Goncalves/arias Electronically Signed By: DENICE WOOD PA-C On: 08/12/2011 02:50 PM Source: [facility] MHSDOLBEYNONRADSYS Document Id: [id number] documented in this encounter Nursing Notes Marcela Mayo L.P.N. - 07/19/2011 7:52 PM CDT to er per provider to provider Electronically Signed By: MARCELA MAYO On: 07/19/2011 07:52 PM Source: [facility] POWERCHART Document Id: [id number] documented in this encounter Miscellaneous Notes Miscellaneous - Yana Lopez R.N. - 07/20/2011 10:53 AM CDT General Message From: YANA LOPEZ RN ([facility] Triage Nurse) To: CARLOS VANG MD; Sent: 07/20/2011 10:53:15 CDT Subject: General Message Patient was seen in ER last night for CHRISTINE and HTN. SHe is calling today with continued concerns of ismonia and headaches. She is askiong for medication to maintain symptoms until she can be seen by cardiology. [phone] She has tried Ambien and it does not help. She is scheduled for a stress test on July 22. She states the headache is always there but spirals after not getting sleep. Currently rates headache at 08/03. Source: [facility] [employer] Document Id: [id number] Electronically signed by Zac [facility] Cream Dipper [id number] at 09/27/2016 7:36 AM CDT Miscellaneous - Lydia Young, LCinthiaP.N. - 07/19/2011 7:35 PM CDT Ambulatory Vitals Height Weight Ambulatory Vitals Height Weight Entered On: 07/19/2011 19:36 CDT Performed On: 07/19/2011 19:35 CDT by LYDIA YOUNG Vitals/Ht/Wt Systolic Blood Pressure : 120mmHg Diastolic Blood Pressure : 96mmHg (>HHI) NIBP Mean : 104mmHg BP Location : Right upper extremity (Comment: Regular cuff. [LYDIA YOUNG - 07/19/2011 19:35 CDT] ) LYDIA YOUNG - 07/19/2011 19:35 CDT Source: [facility] [employer] Document Id: [id number] CDT!6 Miscellaneous - Lydia Young L.P.N. 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 Patient is scheduled for a stress test this week. Patient feels restless, notes abdominal pain and headache. Patient states she hasn't slept for days. Patient reports the Ambien is not working. Temperature Core : 37.0C(Converted to: 98.6DegF) Peripheral Pulse Rate : 112/min (HI) Respiratory Rate : 16/min Systolic Blood Pressure : 122mmHg Diastolic Blood Pressure : 96mmHg (>HHI) NIBP Mean : 105mmHg BP Location : Right upper extremity (Comment: Regular cuff. Hypertension protocol. [LYDIA YOUNG 07/19/2011 19:31 CDT] ) SpO2 : 99% Oxygen Therapy : Room air Actual Weight : 53.3kg(Converted to: 117lb 8oz) Dosing Weight Clinic : 53.30kg LYDIA YOUNG 07/19/2011 19:31 CDT Subjective Pain Symptoms : Yes LYDIA YOUNG 07/19/2011 19:31 CDT Pain Pain Assessment Grid Pain 1 Pain 2 Location : Head Abdomen Intensity : 8 8 LYDIA YOUNG 07/19/2011 19:31 CDT LYDIA YOUNG 07/19/2011 19:31 CDT Dependent Habits Tobacco Use/Currently Using : No Smoking Status : Never smoker LYDIA YOUNG 07/19/2011 19:31 CDT Tobacco Use Grid Last Use : never LYDIA YOUNG 07/19/2011 19:31 CDT Caffeine Use Grid Caffeine Use : Current Type : Soft drinks Frequency : Daily LYDIA YOUNG 07/19/2011 19:31 CDT Recreational Drug Use Grid Drug Use : None LYDIA YOUNG 07/19/2011 19:31 CDT Allergy Allergies (Active) NKA Estimated Onset Date: Unspecified ; Created By: BRITTANY WALTON; Reaction Status: Active ; Category: Drug ; Substance: NKA ; Type: Allergy ; Updated By: BRITTANY WALTON; Reviewed Date: 07/19/2011 19:30 CDT Source: [facility] POWERCHART Document Id: [id number] CDT!38 documented in this encounter Plan of Treatment Not on filedocumented as of this encounter Visit Diagnoses Not on filedocumented in this encounter
--- OUTSIDE RECORDS SUMMARY | 2021-12-10 15:40 | XMS_ITS | Encounter Summary ---
:1980 Author Organization [facility] Address [address] [place] [address] Care Team Providers Name Role Phone Unavailable Primary Care Provider Unavailable Encounter Details Date Type Department Care Team Description 07/14/2011 Hospital Encounter HX [facility] Rigoberto Ngo, C.N.P., R.N. 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 - 07/14/2011 12:00 AM CDT [id number] CHIEF COMPLAINT/REASON FOR VISIT Followup from emergency room two days ago for increased heart rate and headaches HISTORY OF PRESENT ILLNESS Denice is a 31-year-old female who comes to the clinic today in followup of her ER visit two days ago. She was seen because of increased heart rate, dizziness, flushing and nausea which caused a headache and a lot of restlessness. Patient has been seeing Dr. Nolan for workup for palpitations, chest pain and flushing. Patient was also given clonidine by a provider in the [facility] for increased blood pressure and was told to take one if she had symptoms causing her heart rate to go up. Patient does say she did take a clonidine on Wednesday evening but she still had the episodes which culminated in the morning around 4:00. Her stated that she also had an episode of holding her breath and then gasping awake and not remembering this episode. She said that for about the past month she has had problems with frequent episodes of increased heart rate, dizziness and flushing causing worsening headache. She does have a history of migraine headaches. She said she typically has an overall headache with increased pain to the right side of her head which is where she typically gets her migraines. Right now her pain is 5-6 out of 10. In the emergency room two days ago she received IV fluids 2 mg of Dilaudid and 2 mg of Haldol with 15 mg of Benadryl and she said she actually went home, slept and felt really good for a day. While in the room, patient monitored her heart rate from sitting to standing with a wrist apparatus and showed her heart rate going from average in the 80s sitting to up to 130s and 140s just standing up. Patient is scheduled for a cardiac stress test next week, July 22. She has also had some labs drawn through Dr. Nolan. She has a cardiology appointment August 12, 2011. Patient is also supposed to have event recording which she states she has received an apparatus in the mail but has not had a chance to use it yet. She says that she is supposed to put it on when she is having these episodes and it holds about six 30-second events and she is to call these in. Patient says that she has been on Imitrex in the past for her headaches but that causes chest heaviness and increased heart rate. She has also been on some other form of migraine medication which causes feelings of someone sitting on her legs and rubber bands around her arms. Overall patient says that she is not sleeping well at all and says that she and her go to bed anywhere between 10:00 and 11:00 p.m. and she is usually up and wide awake by 1:00 or 1:30 in the morning. She has tried lorazepam with 0.5 mg which has caused her to have what she calls mush mouth meaning slurred speech but she states she is still very much awake. SOCIAL HISTORY She is . 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 Tobacco use, denies. Drug use, denies. Alcohol, one to two glasses of wine an evening. PHYSICAL EXAM VITAL SIGNS: Blood pressure 135/100 followed by 138/100. Pulse 84-86 and 88 apically. Weight 53.8 kg. GENERAL: Pleasant female in no acute distress, nontoxic in appearance. HEART: Regular rate and rhythm with S1 and S2. There are no S3, S4, murmurs, rubs, clicks, or gallops. LUNGS: Clear to auscultation in all lobes bilaterally; without wheezes, crackles, or rhonchi. No respiratory distress noted. IMPRESSION/REPORT/PLAN 1. Sleep disturbance 2. Tachycardia with flushing and increased headaches PLAN: Patient to continue with current testing and strongly encouraged to capture some events with her event recorder. For her sleep issues, we are going to try Ambien 10 mg one tablet orally nightly. This prescription was printed off, signed, given to patient. Patient is strongly encouraged to follow up with her primary provider Dr. Nolan. Otherwise, instructed that he will follow up with them with testing results. Patient is scheduled for a dobutamine stress echo next week, , July 23, 2011. Patient is in agreement with plan of care. To Ngo R.N. C.N.P./brian Electronically Signed By: TO NGO RN CHEF KITCHEN MANAGER On: 07/17/2011 06:24 PM Source: [facility] MHSDOLBEYNONRADSYS Document Id: [id number] documented in this encounter Miscellaneous Notes Miscellaneous - Pauline Davis L.P.N. - 07/14/2011 1:53 PM CDT Ambulatory Vitals Height Weight Ambulatory Vitals Height Weight Entered On: 07/14/2011 13:54 CDT Performed On: 07/14/2011 13:53 CDT by PAULINE DAVIS Vitals/Ht/Wt Systolic Blood Pressure : 138mmHg Diastolic Blood Pressure : 100mmHg (>HHI) NIBP Mean : 113mmHg BP Location : Right upper extremity Blood Pressure Cuff Size : Regular JUDY, PAULINE M - 07/14/2011 13:53 CDT Source: [facility] POWERCHART Document Id: [id number] CDT!7 Miscellaneous - Pauline Davis L.P.N. 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 Intake/History Entered On: 07/14/2011 13:53 CDT Performed On: 07/14/2011 13:49 CDT by PAULINE DAVIS Intake Chief Complaint : follow up from ED visit wednesday, for increased heart rate and headaches Peripheral Pulse Rate : 86/min Apical Heart Rate : 84/min Systolic Blood Pressure : 135mmHg Diastolic Blood Pressure : 100mmHg (>HHI) NIBP Mean : 112mmHg BP Location : Right upper extremity Blood Pressure Cuff Size : Regular (Comment: HTN addrssed [JUDYPAULINE Molina - 07/14/2011 13:49 CDT] ) PAULINE DAVIS 07/14/2011 13:49 CDT Subjective Pain Symptoms : Yes CYNTHIA DAVISDY Riley 07/14/2011 13:49 CDT Pain Pain Assessment Grid Pain 1 Location : Head Laterality : Bilateral Intensity : 6 PAULINE DAVIS 07/14/2011 13:49 CDT Dependent Habits Tobacco Use/Currently Using : No Tobacco Use/Advised to Quit : No Smoking Status : Never smoker JUDY, PAULINE Riley 07/14/2011 13:49 CDT Tobacco Use Grid Last Use : never CYNTHIA DAVISDY Riley 07/14/2011 13:49 CDT Caffeine Use Grid Caffeine Use : Current Type : Soft drinks Frequency : Daily JUDYCYNTHIADY Riley 07/14/2011 13:49 CDT Recreational Drug Use Grid Drug Use : None CYNTHIA DAVISDY Riley 07/14/2011 13:49 CDT Allergy Allergies (Active) NKA Estimated Onset Date: Unspecified ; Created By: BRITTANY WALTON Reaction Status: Active ; Category: Drug ; Substance: NKA ; Type: Allergy ; Updated By: BRITTANY WALTON; Reviewed Date: 07/14/2011 13:46 CDT Source: [facility] [employer] Document Id: [id number] CDT!33 documented in this encounter Plan of Treatment Not on filedocumented as of this encounter Visit Diagnoses Not on filedocumented in this encounter
--- OUTSIDE RECORDS SUMMARY | 2021-12-10 15:40 | XMS_ITS | Encounter Summary ---
:1980 Author Organization [facility] Address [address] [place] [address] Care Team Providers Name Role Phone Unavailable Primary Care Provider Unavailable Encounter Details Date Type Department Care Team Description 04/09/2011 Hospital Encounter HX [facility] Carlos Vang M.D. 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 - 04/09/2011 12:00 AM CST [id number] CHIEF COMPLAINT/REASON FOR VISIT Tension headache. HISTORY OF PRESENT ILLNESS This 30-year-old lady comes in today complaining of spasms of the right side of the body. 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 She complains of spasms more and starting at the neck area and sometimes associated with headache which goes around the head and causes her to have headache. Currently rating the pain of headache at around 4-5/10. She says these spasms can happen sometimes but there are moments where it lasts the whole day. Denies any stressors. Denies any anxiety or depression. Denies any nausea, vomiting, diarrhea. Denies any fever, unintentional weight loss. Also, denies any history of autoimmune diseases with herself or within the family. Denies any history of any cardiac problems in herself or in the family. PAST MEDICAL/SURGICAL HISTORY Reviewed. CURRENT MEDICATIONS Reviewed. ALLERGIES Reviewed. SOCIAL HISTORY Reviewed. FAMILY HISTORY Reviewed. SYSTEMS REVIEW As above, all other systems reviewed and negative. PHYSICAL EXAM VITAL SIGNS: Reviewed. GENERAL: In no apparent distress, comfortable and cooperative. HEENT: Normocephalic, atraumatic. EOMI. PERRL. No conjunctival injection. Nose patent bilaterally without erythema or drainage. Oropharynx: Chauvin mucous membranes without lesions, exudate or drainage. NECK: Supple without lymphadenopathy. No thyromegaly or thyroid masses. CARDIOVASCULAR: Regular rate and rhythm without murmur, gallop or rubs. LUNGS: Clear to auscultation bilaterally without wheezing or rales. ABDOMEN: Soft, nontender and nondistended. Normal active positive bowel sounds. No hepatosplenomegaly or masses appreciated. EXTREMITIES: No clubbing, cyanosis or edema. NEUROLOGIC: Cranial nerves II-XII are normal. Gait is normal. Deep tendon reflexes normal. Power 5/5 in all extremities. Trigger point tenderness checked but not <__IM_1: unclear > . Gait is not compromised. IMPRESSION/REPORT/PLAN Spasms especially in the neck associated with headache. Currently tension kind of headache. She currently denies any stressors or anxiety issues but I have asked her to start taking amitriptyline 50 mg in the bedtime. We will see how she does in a month from now. In the meantime if she thinks it is not enough she can increase it up to 100 mg. Side effects of the medications were also discussed with the patient. I am going to see the patient back in a month from now. Isabell Tamayo,B.S./jhon Electronically Signed By: CARLOS VANG MD On: 04/15/2011 07:29 PM Source: [facility] MHSDOLBEYNONRADSYS Document Id: [id number] ING ASSISTANT documented in this encounter Miscellaneous Notes Miscellaneous - Julia Gann, R.N. - 07/03/2011 1:45 PM CST General Message Document Contains Addenda Addendum by HANSA PARKINSON on 03 July 2011 18:28:15 PARKING ASSISTANT Pt notified that Dr. Vang said he would not start any medication now until we have a study done. Advised that any discomfort should go to ER. Pt states understanding and agrees to plan. Addendum by HANAS PARKINSON on 03 July 2011 18:25:50 PARKING ASSISTANT Left message already for pt to return call from previous message. See both messages when she returns call Addendum by CARLOS VANG MD on 03 July 2011 17:35:27 PARKING ASSISTANT From: CARLOS VANG MD To: [facility] Triage Nurse; Sent: 07/03/2011 17:35:27 PARKING ASSISTANT Subject: RE: General Message Please advise her that I would not start any medicine now until we have a study done. If she has significant discomfort, she should be in seen in the ER. Thanks Carlos From: JULIA GANN RN ([facility] Triage Nurse) To: CARLOS VANG MD; Sent: 07/03/2011 13:45:57 PARKING ASSISTANT ! Subject: General Message Patient was seen last by PCP on 04/09/11. She was seen yesterday in ER for chest pain and increasedheart rate. She is calling today to let provider know that she has a follow up appointment in cardiology in the [facility] on 07/08/11. States that she was not able to get in to see locally. Last visit she was started on amitriptylene for muscle spasms. She did not feel it was effective so she has quit taking a while ago. She has been monitering her heart rate. Today it has ranged from the high 90's to 130s. Does not feel any chest pain but feels uncomfortable. She was told to follow up with PCP to seeif he can advise any other interventions. She has tried ativan and does not feel that this is effecti ve. Also was given fiornal to try and she things this actually made her feel worse instead of better. Please advise. . Source: [facility] POWERCHART Document Id: [id number] Miscellaneous - Denice Farr R.N. - 05/28/2011 4:10 PM CST General Message Document Contains Addenda Addendum by DENICE FARR RN on 02 June 2011 09:02:16 PARKING ASSISTANT Patient advised and voices understanding. Addendum by MARICARMEN MORROW MD on 02 June 2011 08:58:09 PARKING ASSISTANT From: MARICARMEN MORROW MD To: [facility]/Neuro Triage Nurse; Sent: 06/02/2011 08:58:09 PARKING ASSISTANT Subject: FW: General Message Addendum by DAVID WOODSON MD on 02 June 2011 08:52:01 PARKING ASSISTANT From: DAVID WOODSON MD To: CHITO BETTS PA-C; Sent: 06/02/2011 08:52:01 PARKING ASSISTANT Subject: RE: General Message i didctated letter Addendum by CHITO BETTS PA-C on 28 May 2011 16:42:34 PARKING ASSISTANT From: CHITO BETTS PA-C To: DAVID WOODSON MD; Sent: 05/28/2011 16:42:34 PARKING ASSISTANT Subject: FW: General Message what do you think? From: DENICE FARR RN ([facility]/PM&R/Neuro Triage Nurse) To: CHITO BETTS PA-C; Sent: 05/28/2011 16:10:07 PARKING ASSISTANT Subject: General Message Patient calls stating she is in the and had fx her fibula and was seeing you (Dr. Woodson) for this. DOI was this Summer and pt had come off of restriction April 23, 2011. Patient needs a px 42 days after last day of restriction for the and is wondering if you can extend the restriction for 30 more days? Patient is having muscle cramping after exercise and needs to rest for two days after, although, stated it has improved. . Patient stated a RTW note would be fine. Source: [facility] POWERCHART Document Id: [id number] Miscellaneous - Malu Eddy, R.N. - 04/13/2011 3:40 PM CST General Message Document Contains Addenda Addendum by JULIA GANN RN on 13 April 2011 16:22:48 PARKING ASSISTANT This message was called back to patient who states that she understands information. Addendum by CARLOS VANG MD on 13 April 2011 16:04:00 PARKING ASSISTANT From: CARLOS VANG MD To: [facility]/Cardiology Triage Nurse; Sent: 04/13/2011 16:04:00 PARKING ASSISTANT Subject: RE: General Message Please let the patient know that she should be able to take both the medications. No significant interaction has been noted. Thanks Carlos From: MALU EDDY RN ([place] [facility]/IM/Cardiology Triage Nurse) To: CARLOS VANG MD; Sent: 04/13/2011 15:40:30 PARKING ASSISTANT Subject: General Message Pt. called and states she saw you last week for back and neck muscle spasms, and Amitriptyline was ordered. She forgot to tell you that she had [facility] andhad been put on Adderall as needed. She questions if there is a drug interaction, and has not filledthe Amitriptyline yet. Please advise if it is OK to take or if something else needs to be ordered. [facility]. Pt. may be contacted at [phone] Source: [facility] POWERCHART Document Id: [id number] Miscellaneous - Carlos Vang M.D. - 04/09/2011 10:59 AM CST Ambulatory Patient Summary [address] [address] Visit Information Name: DENICE OWENS Current Date: 04/09/2011 10:59:49 Primary Care Provider: ROYA BLACK MD Your Medications Here is a list of your medications. It is important to take your medications as directed. Use a pillbox or chart to help remind you to take your medications. Please let your doctor or nurse know if you have problems taking your medications. Medication/Strength Dose Route Frequency Indications/Special Instructions/Comments amitriptyline (amitriptyline 50 mg oral tablet) 50 mg Oral once a day (at bedtime) Your Allergies & Intolerances Substance Reaction Symptoms [...] Test/Treatment Last Done Next Due Additional Information Health Assessment every 1 year 04/09/2011 04/08/2012 Screening Pap Smear every 3 years Women 21-65 04/09/2011 05/09/2011 Checks for signs of cancer of the cervix. Lipid Panel every 5 years Age 20-75 12/19/2010 01/18/2011 Checks blood for good (HDL) and bad (LDL) cholesterol. Know your numbers, they are one indicator of your risk for heart attack and stroke. Vaccine: Tetanus every 10 years 04/09/2011 05/09/2011 Immunization to help prevent you from getting the serious disease Tetanus (Lockjaw). Your Upcoming Appointments Date Time Location Reason Provider No Appointments found Your Goals/Additional instructions: Source: [facility] POWERCHART Document Id: [id number] ING ASSISTANT Miscellaneous - Carlos Vang M.D. - 04/09/2011 10:59 AM CST Ambulatory Depart Summary [address] [address] Visit Information Name: DENICE OWENS Current Date: 04/09/2011 10:59:49 Physicians Attending Physician: CARLOS VANG MD Primary Care Provider: ROYA BLACK MD DENICE OWENS has been given the following list of medications: Your Medications It is important to take your medications as directed. Use a pill box or chart to help remind you to take your medications. Please let your doctor or nurse know if you have problems taking your medications. Medication/Strength Dose Route Frequency Indications/Special Instructions/Comments amitriptyline (amitriptyline 50 mg oral tablet) 50 mg Oral once a day (at bedtime) Additional Information: Yes - Current list of reconciled medications is provided and explained to the patient and/or family, guardian/caregiver. Source: [facility] POWERCHART Document Id: [id number] ING ASSISTANT Miscellaneous - Conversion, Historical Provider Ser - 04/09/2011 10:50 AM PARKING ASSISTANT Health Assessment Health Assessment Entered On: 04/09/2011 10:50 PARKING ASSISTANT Performed On: 04/09/2011 10:50 PARKING ASSISTANT by JENN LR LPN Health Assessment Complete Health Assessment Complete or Modified : Annual Health Assessment Annual Health Assessment Completed : Yes JENN LR LPN - 04/09/2011 10:50 PARKING ASSISTANT Nutrition Nutrition Risk Factors by History Adult : None JENN LR LPN - 04/09/2011 10:50 PARKING ASSISTANT Functional Current Daily Living Assistance : None JENN LR LPN - 04/09/2011 10:50 PARKING ASSISTANT Dependent Habits Tobacco Use/Currently Using : No Smoking Status : Never smoker JENN LR LPN - 04/09/2011 10:50 PARKING ASSISTANT Tobacco Use Grid Last Use : never JENN LR LPN - 04/09/2011 10:50 PARKING ASSISTANT Caffeine Use Grid Caffeine Use : Current Type : Soft drinks Frequency : Daily JENN LR LPN - 04/09/2011 10:50 PARKING ASSISTANT Recreational Drug Use Grid Drug Use : None JENN LR LPN - 04/09/2011 10:50 PARKING ASSISTANT Psychosocial Domestic Abuse Concerns : None JENN LR LPN - 04/09/2011 10:50 PARKING ASSISTANT Advance Directive Advanced Directives : No JENN LR LPN - 04/09/2011 10:50 PARKING ASSISTANT Educ Needs Learning Style Preference Adult Grid Patient : None Family : None HOODHAWKSONAMJENNMARY Saez LPN - 04/09/2011 10:50 PARKING ASSISTANT Source: [employer] Document Id: [id number] PARKING ASSISTANT!30 Miscellaneous - Conversion, Historical Provider Ser - 04/09/2011 10:46 AM PARKING ASSISTANT 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/History 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/History Entered On: 04/09/2011 10:48 PARKING ASSISTANT Performed On: 04/09/2011 10:46 PARKING ASSISTANT by JENN LR LPN Intake Chief Complaint : muscle cramps, right side of body Onset of Symptoms : couple months Temperature Core : 37.4C(Converted to: 99.3DegF) Peripheral Pulse Rate : 80/min Systolic Blood Pressure : 132mmHg Diastolic Blood Pressure : 86mmHg NIBP Mean : 101mmHg BP Location : Right upper extremity Blood Pressure Cuff Size : Regular Actual Weight : 53.3kg(Converted to: 117lb 8oz) Dosing Weight Clinic : 53.30kg JENN LR [facility] - 04/09/2011 10:46 PARKING ASSISTANT Subjective Pain Symptoms : No JENN LR LOGISTICIAN - 04/09/2011 10:46 PARKING ASSISTANT Dependent Habits Tobacco Use/Currently Using : No Smoking Status : Never smoker JENN LR [facility] - 04/09/2011 10:46 PARKING ASSISTANT Tobacco Use Grid Last Use : never JENN LR LPN 04/09/2011 10:46 PARKING ASSISTANT Caffeine Use Grid Caffeine Use : Current Type : Soft drinks Frequency : Daily JENN LR LPN - 04/09/2011 10:46 PARKING ASSISTANT Recreational Drug Use Grid Drug Use : None JENN LR LPN 04/09/2011 10:46 PARKING ASSISTANT Allergy Allergies (Active) NKA Estimated Onset Date: Unspecified ; Created By: BRITTANY WALTON; Reaction Status: Active ; Category: Drug ; Substance: NKA ; Type: Allergy ; Updated By: BRITTANY WALTON; Reviewed Date: 04/09/2011 10:46 PARKING ASSISTANT Source: [facility] POWERCHART Document Id: [id number] PARKING ASSISTANT!29 documented in this encounter Plan of Treatment Not on filedocumented as of this encounter Visit Diagnoses Not on filedocumented in this encounter
--- OUTSIDE RECORDS SUMMARY | 2021-12-10 15:40 | XMS_ITS | Encounter Summary ---
:1980 Author Organization [facility] Address [address] [place] [address] Care Team Providers Name Role Phone Unavailable Primary Care Provider Unavailable Encounter Details Date Type Department Care Team Description 08/15/2010 Hospital Encounter [facility]X [facility] ED Ramiro Price M.D. [address] 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 Discharge Summaries Laila Claudio, [place] - 08/15/2010 2:27 PM CDT ED Depart Summary [facility] Emergency Department / Urgent Care Clinical Discharge Summary PERSON INFORMATION Name DENICE CRUZ Age 30 Years 1980 12:00 AM Sex Female Language Romansh PCP ROYA BLACK MD Marital Status Visit Id Visit Reason Leg pain-swelling; SWOLLEN KNEE Specialty Enc Type Emergency Med Service Emergency Medicine Referred by Track Group [facility] ED/UC Discharge 08/15/2010 2:27 PM Tracking Id [id number] Checkout 08/15/2010 2:27 PM Checkin 08/15/2010 1:09 PM Acuity 3 -Urgent Dispo Type Discharged to Home or Self Care Arrival 08/15/2010 1:09 PM Reg Status Complete LOS 000 01:18 Address: [address] [place] [id number] Comment: PROVIDER INFORMATION Provider Role Assigned Unassigned LAILA CLAUDIO SCOOP FILLER Nurse 08/15/2010 1:12 PM RAMIRO PRICE MD ED Provider 08/15/2010 1:14 PM DIAGNOSIS Tendonitis NOS Comment: PATIENT EDUCATION INFORMATION Instructions: TENDONITIS Follow up: With: Address: When: ROYA BLACK [address] [place] [address] phone, [employer] (1) In 2 weeks 08/29/2010 Comments: Call if not getting better as an MRI may be needed Source: [facility] POWERCHART Document Id: [id number] Laila Claudio [place] - 08/15/2010 2:27 PM CDT ED Discharge Instructions [address] [address] or [phone] Name: DENICE CRUZ Date of : 1980 12:00 AM Visit Date: 08/15/2010 1:09 PM Address: [address] [place] [address] Primary Care Provider: ROYA BLACK MD IMPORTANT: [facility] would like to thank you for allowing us to assist you with yourhealthcare needs. The following includes patient education materials and information regarding your injury/illness. Follow-Up Instructions: With: Address: When: ROYA SOFIA [address] [place] [phone] phone, [employer] (1) In 2 weeks 08/29/2010 Comments: Call if not getting better as an MRI may be needed Patient Education Materials: [id number] TENDONITIS A tendon is the thick fibrous cord that joins muscle to bone and causes joints to move. Tendonitis is inflammation of the tendon which may be due to overuse, injury or infection. This usually involves the shoulders, forearm, wrist, hands and foot. Symptoms include local pain, swelling and tenderness to the touch. Movement of the involved joint increases the pain. Tendonitis requires about 4 to 6 weeks to heal. It is treated by preventing motion of the tendon with a splint or brace and use of anti-inflammatory medicine. HOME CARE: 1) Apply an ice pack (ice cubes in a plastic bag, wrapped in a towel) over the injured area for 20 minutes every 1-2 hours the first day for pain relief. Continue this 3-4 times a day until the pain and swelling goes away. 2) Rest the inflamed joint and protect it from movement. 3) You may use ibuprofen (Motrin, Advil) or naproxen (Aleve, Naprosyn) to treat pain and inflammation, unless another medicine was prescribed. If you can't take these medicines, acetaminophen (Tylenol)may help with the pain, but does not treat inflammation. [ NOTE : If you have chronic liver or kidney disease or ever had a stomach ulcer or GI bleeding, talk with your doctor before using these medicines.] 4) As your symptoms improve, begin gradual motion at the involved joint. FOLLOW UP with your doctor if not improving after the first five days of treatment. GET PROMPT MEDICAL ATTENTION if any of the following occur: -- Redness over the painful area -- Increasing pain or swelling at the joint -- Fever over 100.0?? F (37.8?? C) ?? [id number] [employer], [address] [place] [address], [place] [address]. All rights reserved. This information is not intended as a substitute for professional medical care. Always follow your healthcare professional's instructions. Discharge Prescriptions & Home Medications: Medication/Strength Dose Route Frequency Indications/Special Instructions/Comments tramadol (tramadol 50 mg oral tablet) 1-2 tabs Oral every 6 hours as needed for Pain hydrocodone-acetaminophen (Vicodin 5 mg-500 mg oral tablet) 1 to 2 tablets Oral every 6 hours as needed for Pain Take narcotics as little as possible as they can be addictive, can lead to tolerance of the medication, and can cause constipation. The goal is to make the pain tolerable, NOT to take the pain away completelty. Attention: If you have any medications at home that are not on this list, please contact your provider for clarification. Medication Reconciliation: Reconciliation is a process of identifying the most accurate list of all medications a patient is taking - including name, dosage, frequency, and route - and using this list to provide to the patient information about how to take those medications. DENICE CRUZ or anitha has reviewed the home medications [...] the instructions above carefully. If you are a patient that is being discharged from the Emergency Department after receiving narcotics or other medications that may impair your judgment you may be a risk to yourself or others if you operate a motor vehicle. We recommend that you arrange a ride home with a responsible libertarian. I, DENICE CRUZ , or responsible libertarian have received this information and my questions have been answered. I have discussed any challenges I see with this plan with the nurse or physician. Patient Signature or Responsible Alliance Party Date/Time Provider Signature Date/Time Medication Reconciliation: Reconciliation is a process of identifying the most accurate list of all medications a patient is taking - including name, dosage, frequency, and route - and using this list to provide to the patient information about how to take those medications. DENICE CRUZ or anitha has reviewed the home medications [...] the instructions above carefully. If you are a patient that is being discharged from the Emergency Department after receiving narcotics or other medications that may impair your judgment you may be a risk to yourself or others if you operate a motor vehicle. We recommend that you arrange a ride home with a responsible libertarian. I, NANCY, DENICE , or responsible libertarian have received this information and my questions have been answered. I have discussed any challenges I see with this plan with the nurse or physician. Patient Signature or Responsible Alliance Party Date/Time Provider Signature Date/Time Source: [employer] Document Id: [id number] documented in this encounter Nursing Notes Laila Claudio R.N. - 08/15/2010 2:09 PM CDT ED Pain Assessment ED Pain Assessment Entered On: 08/15/2010 14:09 CDT Performed On: 08/15/2010 14:09 CDT by LAILA CLAUDIO RN Pain Pain Assessment Grid Pain 1 Location: Lower leg Laterality: Right Intensity: 4 Acceptable Intensity: 0 Time Pattern: Acute Onset: Sudden Duration: 3 weeks Quality: Throbbing Pain Radiation: Yes Radiation Characteristics: to foot and calf Aggravating Factors: Movement Alleviating Factors: Repositioning, Rest LAILA CLAUDIO RN - 08/15/2010 14:09 CDT Source: [employer] Document Id: [id number] CDT!16 Laila Claudio R.N. - 08/15/2010 1:45 PM CDT ED Pain Assessment ED Pain Assessment Entered On: 08/15/2010 13:49 CDT Performed On: 08/15/2010 13:45 CDT by LAILA CLAUDIO RN Pain Pain Assessment Grid Pain 1 Location: Lower leg Laterality: Right Intensity: 10 Acceptable Intensity: 0 Time Pattern: Acute Onset: Sudden Duration: 3 weeks Quality: Throbbing Pain Radiation: Yes Radiation Characteristics: to foot and calf Aggravating Factors: Movement Alleviating Factors: Repositioning, Rest Comments (Comment: morphine give for pain [LAILA CLAUDIO RN - 08/15/2010 13:49 CDT] ) LAILA CLAUDIO RN - 08/15/2010 13:49 CDT Source: [employer] Document Id: [id number] CDT!16 Laila Claudio R.N. - 08/15/2010 1:12 PM CDT ED Primary Assessment ED Primary Assessment Entered On: 08/15/2010 13:22 CDT Performed On: 08/15/2010 13:12 CDT by LAILA CLAUDIO RN Reason For Visit Diagnoses(Active) Leg pain-swelling Date: 08/15/2010 13:14 CDT ; Diagnosis Type: Reason For Visit ; Confirmation: Complaint of ; Classification: Medical ; Clinical Service: Emergency medicine ; Code: PNED ; Probability:0 ; Diagnosis Code: [id number] Triage Chief Complaint Description: started on august 02 injured right leg on the side of the knee and behindit, seen in [place], [place] with flexeril and that didn't help, feel like charilie horses , re injured 5 days ago falling down some steps, seen in on with vicodin Information Given By: Patient, Spouse Accompanied By: Spouse Mode of Arrival ED: Private vehicle Track: Trauma Other Languages: Romansh Pain Symptoms: Yes Pain Medication Requested: Yes Vital Signs Assessed: Yes GCS Assessed: Yes LAILA CLAUDIO RN - 08/15/2010 13:12 CDT Pain Pain Assessment Grid Pain 1 Location: Lower leg Laterality: Right Intensity: 10 Acceptable Intensity: 0 Time Pattern: Acute Onset: Sudden Duration: 3 weeks Quality: Throbbing Pain Radiation: Yes Radiation Characteristics: to foot and calf Aggravating Factors: Movement Alleviating Factors: Repositioning, Rest BOB LAILA Peña RN - 08/15/2010 13:12 CDT Vital Signs Temperature Core: 37.0C(Converted to: 98.6DegF) Apical Heart Rate: 104/min (HI) Respiratory Rate: 20/min Systolic Blood Pressure: 135mmHg Diastolic Blood Pressure: 107mmHg (>HHI) NIBP Mean: 116mmHg BP Location: Right upper extremity SpO2: 98% Oxygen Therapy: Room air Dosing Weight: 54.500kg Dosing Weight Conversion to Pounds: 119.900lb Estimated Weight: 54.50kg Estimated Weight Conversion to Pounds: 119.90lb LAILA CLAUDIO RN - 08/15/2010 13:12 CDT Irene Coma Eye Opening Response [place]: Spontaneously Best Verbal Response [place]: Oriented Best Motor Response [place]: Obeys simple commands Speedwell Coma Score: 15 LAILA CLAUDIO RN - 08/15/2010 13:12 CDT ED Physician Notification Time ED Physician Notification Time: 08/15/2010 13:19 CDT LAILA CLAUDIO RN - 08/15/2010 13:12 CDT HORACIO HORACIO Level 1: No HORACIO Level 2: No HORACIO Level 3: Many LAILA CLAUDIO RN - 08/15/2010 13:12 CDT DCP GENERIC CODE Tracking Acuity: 3 -Urgent Tracking Group: [facility] ED/ LAILA CLAUDIO RN - 08/15/2010 13:12 CDT Allergy Latex Screening: No LAILA CLAUDIO RN - 08/15/2010 13:12 CDT Allergies (Active) NKA Estimated Onset Date: Unspecified ; Created By: BRITTANY WALTON; Reaction Status: Active ; Category: Drug ; Substance: NKA ; Type: Allergy ; Updated By: BRITTANY WALTON; Reviewed Date: 08/13/2010 10:01 CDT ID Screen Drug Resistant Organism: No LAILA CLAUDIO RN - 08/15/2010 13:12 CDT Immunizations Immunizations Current: Yes Last Tetanus: < 5 years Pneumovac: Last 5 years Influenza: This year LAILA CLAUDIO RN - 08/15/2010 13:12 CDT Respiratory Airway: Patent Respirations: Unlabored Respiratory Pattern: Regular LAILA CLAUDIO RN - 08/15/2010 13:12 CDT Cardiovascular Heart Rhythm: Regular Skin Color: Normal for ethnicity Skin Description: Dry Skin Temperature: Warm LAILA CLAUDIO RN - 08/15/2010 13:12 CDT Neurological Level of Consciousness: Alert Orientation: Oriented x 3 Characteristics of Speech: Clear LAILA CLAUDIO RN - 08/15/2010 13:12 CDT ED Psychosocial Affect/Behavior: Crying Domestic Concerns: None Emotional Support Available: Yes LAILA CLAUDIO RN - 08/15/2010 13:12 CDT Gastrointestinal Nutrition ED: Adequate LAILA CLAUDIO RN - 08/15/2010 13:12 CDT /OB Assessment Patient Stated Symptoms: None LAILA CLAUDIO RN - 08/15/2010 13:12 CDT Integumentary Integumentary Patient Stated Symptoms: None Skin Turgor: Elastic Skin Integrity: Intact Mucous Membrane Color: Trona Mucous Membrane Description: Moist LAILA CLAUDIO RN - 08/15/2010 13:12 CDT Musculoskeletal Fall Prevention Education Provided: Yes Musculoskeletal Note: pain in right lower leg by knee, more swelling noted in the last two hours after feeling leg give way this am LAILA CLAUDIO RN - 08/15/2010 13:12 CDT Social Habits Alcohol Use Grid Alcohol Use: No LAILA CLAUDIO RN - 08/15/2010 13:12 CDT Tobacco Use Grid Tobacco Use: None LAILA CLAUDIO RN - 08/15/2010 13:12 CDT Recreational Drug Use Grid Drug Use: None LAILA CLAUDIO RN - 08/15/2010 13:12 CDT Source: [facility] POWERCHART Document Id: [id number] CDT!104 documented in this encounter ED Notes Laila Claudio R.N. - 08/15/2010 2:26 PM CDT ED Nurse Reassess ED Nurse Reassess Entered On: 08/15/2010 14:26 CDT Performed On: 08/15/2010 14:26 CDT by LAILA CLAUDIO RN Musculoskeletal Reassess Musculoskeletal Note: immobilizer applied to right leg, LAILA CLAUDIO RN - 08/15/2010 14:26 CDT Source: [employer] Document Id: [id number] CDT!3 Laila Claudio R.N. - 08/15/2010 2:26 PM CDT ED Disposition Summary ED Disposition Summary Entered On: 08/15/2010 14:27 CDT Performed On: 08/15/2010 14:26 CDT by LAILA CLAUDIO SCOOP FILLER Disposition Summary Accompanied By: Spouse Mode of Discharge: Other: crutches Transportation: Private vehicle Discharge From ED With: Home Med List LAILA CLAUDIO RN - 08/15/2010 14:26 CDT Source: [employer] Document Id: [id number] CDT!6 Ramiro Price M.D. - 08/15/2010 1:19 PM CDT Leg pain-swelling Patient: DENICE CRUZ - XL MRN Age: 30 years Sex: Female : 1980 Author: RAMIRO PRICE MD Basic Information Time seen: Date & time 08/15/2010 13:29:00. History source: Patient. Arrival mode: Private vehicle. History limitation: None. History of Present Illness The patient presents with lower extremity pain and lower extremity swelling. 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 The course/duration of symptoms is worsening. Type of injury: fall, direct blow and about five days ago shehit her right arechiga and felt a burning sensation in her right knee which has gotten worse. Location: Right lateral knee leg. The character of symptoms is pain, swelling and burning. The degree at present is severe and 9 /10. . Exacerbating factors consist of movement walking. The relieving factor is none. Risk factors consist of none. Prior episodes: none. Therapy today: prescription medications including vicodin, flexeril not helping. Associated symptoms: none. Review of Systems Constitutional symptoms: Negative [...] except as documented in HPI. Musculoskeletal symptoms: Joint pain. Neurologic symptoms: Negative except as documented in HPI. Psychiatric symptoms: Negative except as documented in HPI. Endocrine symptoms: Negative except as documented in HPI. Hematologic/Lymphatic symptoms: Negative except as documented in HPI. Allergy/immunologic symptoms: Negative except as documented in HPI. Additional review of systems information:All other systems reviewed and otherwise negative. Health Status Allergies: . Allergic Reactions (all) NKA Medications: . Prescriptions and Home Medications cyclobenzaprine (Flexeril 10 mg oral tablet), 1 tab(s), PO, 3xDay, 30 tab(s), PRN acetaminophen-codeine (Tylenol with Codeine #3 oral tablet), 1 tab(s), PO, q4hr, tab(s), PRN, No more than 4,000mg acetaminophen/24hrs ketorolac (Toradol 10 mg oral tablet), 1 TABLET, PO, 4xDay, TAKE WITH FOOD, 20 tab(s) hydrocodone-acetaminophen (Vicodin 5 mg-500 mg oral tablet), 1 to 2 tablets, PO, q6hr, Take narcotics as little as possible as they can be addictive, can lead to tolerance of the medication, and can cause constipation. The goal is to make the pain tolerable, NOT to take the pain away completelty., 15 tab(s), PRN Past Medical/ Family/ Social History Medical history: Medical history. No active or resolved past medical history items have been selected or recorded. Surgical history: Surgical history. No active procedure history items have been selected or recorded. Family history: Not significant. Social history: Alcohol use: Occasionally, Tobacco use: Denies, Family/social situation: . Physical Examination Vital signs: Time 08/15/2010 13:49:00, Vital Signs. 08/15/2010 13:12 CDT Temperature Core 37.0 C Apical Heart Rate 104 /min HI Respiratory Rate 20 /min SpO2 98 % Systolic Blood Pressure 135 mmHg Diastolic Blood Pressure 107 mmHg >HHI Mean Arterial Pressure 116 mmHg BP Location Right upper General: Alert. mild distress. tearful on exam of her right knee. Skin: Warm. dry. intact. Swelling, ecchymosis and warmth lateral right knee . Musculoskeletal: Normal ROM. normal strength. Lower extremity: right, lateral, knee, tenderness, swelling, ecchymosis and Nontender palpating proximal fibula, but tenderness and swelling is just lateral to proximal fibula at the location of the tibialis anterior insertion. There is increased pain withdorsiflexion of the right foot, extension of the right knee, and rotation of the ankle., no erythema. Neurological: No focal neurological deficit observed Medical Decision Making Differential Diagnosis:Cellulitis, contusion, sprain, strain, tendonitis, hematoma, fracture, internal knee injury. Documents reviewed:Emergency department nurses' notes, prior records, recent x- ray reports. OrdersLaunch Orders, Pharmacy: morphine (Order Processing): 6 mg, Subcut., OnceLaunch Orders. Patient Care: Immobilizer Apply (Order Processing): 08/15/2010 13:55 CDT, Once Reexamination/ Reevaluation Re-examination/Re-evaluation:Time 08/15/2010 14:11:00, Pain status Decreased, Knee immobilizer placed. Impression and Plan 24221 Tendonitis NOS (Discharge, Emergency medicine, Medical) Discharge plan Condition: Improved. Dispositioned: To home. Prescriptions Patient was given the following educational materials: TENDONITIS. Limitations: No weight bearing. Must wear splint until knee is no longer painful. Follow up with: ROYA BLACK In 2 weeks 08/29/2010 Call if not getting better as an MRI may be needed. Counseled: Patient, Regarding diagnosis, Regarding treatment plan, Patient indicated understanding of instructions. Source: [facility] POWERCHART Document Id: [id number]} documented in this encounter Miscellaneous Notes Miscellaneous - Laila Claudio R.N. - 08/15/2010 2:27 PM CDT Valuables/Belongings Valuables/Belongings Entered On: 08/15/2010 14:27 CDT Performed On: 08/15/2010 14:27 CDT by LAILA CLAUDIO RN Valuables/Belongings Belongings Sent Home With: patient LAILA CLAUDIO RN - 08/15/2010 14:27 CDT Source: [facility] [employer] Document Id: [id number] CDT!3 Miscellaneous - Laila Claudio R.N. - 08/15/2010 1:25 PM CDT Advance Directive Advance Directive Entered On: 08/15/2010 13:25 CDT Performed On: 08/15/2010 13:25 CDT by LAILA CLAUDIO RN Advance Directive Advanced Directives: No LAILA CLAUDIO RN - 08/15/2010 13:25 CDT Source: [facility] [employer] Document Id: [id number] CDT!3 Miscellaneous - Conversion, Historical Provider Ser - 08/15/2010 1:09 PM CDT Facility Charge Ticket Facility Charge Ticket Entered On: 08/20/2010 9:54 CDT Performed On: 08/15/2010 13:09 CDT by REGINA MELLO Facility Charge TVL Level for Facility Charge Ticket: Level 3 Mode of Arrival ED: Private vehicle [facility] Mode of Arrival Interpreted: Standard [facility] Process Management: None [facility] Order Management: None 30 Minutes Critical Care: No [facility] Nursing Assessment: Triage and 3-5 nursing assessments [facility] Disposition: Discharge [facility] Total Points with Diagnosis Control: 6 [facility] Visit Level: 36123 Level 3 REGINA MELLO - 08/20/2010 9:53 CDT Source: [facility] POWERCHART Document Id: [id number] CDT!12 documented in this encounter Plan of Treatment Not on filedocumented as of this encounter Visit Diagnoses Not on filedocumented in this encounter
--- OUTSIDE RECORDS SUMMARY | 2021-12-10 15:40 | XMS_ITS | Encounter Summary ---
:1980 Author Organization [facility] Address [address] [place] [address] Care Team Providers Name Role Phone Unavailable Primary Care Provider Unavailable Encounter Details Date Type Department Care Team Description 09/05/2010 Hospital Encounter HX [facility] Carlos Vang M.D. [address] [place], [place] [address] (Wo rk) Social History Tobacco Use Types Packs/Day Years Used Date Smoking Tobacco: Never Assessed Sex Assigned at Date Recorded Female 04/15/2017 7:38 PM [employer] documented as of this encounter Progress Notes Carlos Vang M.D. - 09/05/2010 12:00 AM CDT [id number] CHIEF COMPLAINT/REASON FOR VISIT 1. Dizziness. 2. Headache. HISTORY OF PRESENT ILLNESS This 30-year-old lady was last seen by me on August 21, 2010 at which point she had an episode of near syncope. We did review the EKG at that point and was noted to be in sinus rhythm without any abnormal maintained rhythm. We sent for a chem. 14, thyroid panel at that point which was reported as negative. Patient came to the urgent care on August 24, 2010 complaining of dizziness as well as headache. She was noted to have a very high heart rate, was given some dose of atenolol which the patient did take for a couple of days then stopped taking is because her heart rate would come back and she could not see any benefit from it. Patient currently states that she still has the dizziness and headache. She states the dizziness is more in her head. Denies any spinning of the room or spinning of the body. Does complain of headache which is global and currently rates at around 5/10. Does complain of mild nausea associated with it. Patient does have a history of migraine headache, takes Imitrex for the headache and states she does not get it more than 3 in a year. Currently does not know if anything was going on. Patient also does complain of some palpitations once in a while without having shortness of breath or chest pain. PAST MEDICAL/SURGICAL HISTORY Reviewed. CURRENT MEDICATIONS Reviewed. ALLERGIES Reviewed. SOCIAL HISTORY Reviewed. FAMILY HISTORY Reviewed. SYSTEMS REVIEW As above, all other systems reviewed and negative. PHYSICAL EXAMINATION VITAL SIGNS: Her blood pressure today is 100/70, heart rate of 88, temperature of 37.1, respiratory rate 16, saturating at 98%, weighs 56.2 kg and measures 168 cm. GENERAL: In no apparent distress, comfortable and cooperative. HEENT: Normocephalic, atraumatic. EOMI. PERRL. No conjunctival injection. Nose patent bilaterally without erythema or drainage. Oropharynx: [place] mucous membranes without lesions, exudate or drainage. NECK: Supple without lymphadenopathy. No thyromegaly or thyroid masses. CARDIOVASCULAR: Regular rate and rhythm without murmur, gallop or rubs. LUNGS: Clear to auscultation bilaterally without wheezing or rales. ABDOMEN: Soft, nontender and nondistended. Normal active positive bowel sounds. No hepatosplenomegaly or masses appreciated. EXTREMITIES: No clubbing, cyanosis or edema. Also Gil-Hallpike maneuver was performed which was negative. IMPRESSION/REPORT/PLAN Headache as well as dizziness currently unknown etiology probably secondary to migraine. Today I have given her a tapering course of prednisone to see if it helps with the headache and dizziness. Patient agrees with the plan. If this does not help her we will be pursuing a workup for palpitations or get an MRI. Patient agrees with the plan. I am going to see the patient back in a couple of weeks from now. Isabell Tamayo,B.S./delvin Electronically Signed By: CARLOS VANG MD On: 09/09/2010 08:32 AM Source: [facility] [id number] Document Id: [id number] documented in this encounter Miscellaneous Notes Miscellaneous - Marybeth Moss, L.P.N. - 09/05/2010 8:47 AM CDT Adult Career Counselor Intake/History Adult Career Counselor Intake/History Entered On: 09/05/2010 8:49 CDT Performed On: 09/05/2010 8:47 CDT by MARYBETH MOSS Intake Chief Complaint: headache/nausea/dizziness Systolic Blood Pressure: 100mmHg Diastolic Blood Pressure: 70mmHg NIBP Mean: 80mmHg BP Location: Right upper extremity (Comment: reg cuff [MARYBETH MOSS - 09/05/2010 8:47 CDT] ) Actual Weight: 56.200kg(Converted to: 123lb 14oz) Weight Source: Standing scale Dosing Weight Clinic: 56.20kg MARYBETH MOSS 09/05/2010 8:47 CDT Subjective Pain Symptoms: Yes MARYBETH MOSS 09/05/2010 8:47 CDT Pain Pain Assessment Grid Pain 1 Location: Head Laterality: Bilateral Intensity: 5 Time Pattern: Constant MARYBETH MOSS 09/05/2010 8:47 CDT Dependent Habits Tobacco Use/Currently Using: No MARYBETH MOSS 09/05/2010 8:47 CDT Caffeine Use Grid Caffeine Use: Current Type: Soft drinks Frequency: Daily MARYBETH MOSS 09/05/2010 8:47 CDT Recreational Drug Use Grid Drug Use: None MARYBETH MOSS 09/05/2010 8:47 CDT Allergy Allergies (Active) NKA Estimated Onset Date: Unspecified ; Created By: BRITTANY WALTON; Reaction Status: Active ; Category: Drug ; Substance: NKA ; Type: Allergy ; Updated By: BRITTANY WALTON; Reviewed Date: 09/05/2010 8:46 CDT Source: [facility] [employer] Document Id: [id number] documented in this encounter Plan of Treatment Not on filedocumented as of this encounter Visit Diagnoses Not on filedocumented in this encounter
--- OUTSIDE RECORDS SUMMARY | 2021-12-10 15:40 | XMS_ITS | Encounter Summary ---
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 - 07/20/2011 2:16 AM CDT ED Discharge Instructions [address] [address] or [phone] Name: DENICE OWENS Date of : 1980 12:00 AM Visit Date: 07/19/2011 7:55 PM Address: [address] [place] [phone] Primary Care Provider: YOBANY VANG MD IMPORTANT: [facility] in [place] would like to thank you for allowing us to assistyou with your healthcare needs. The following includes patient education materials and information regarding your injury/illness. Chief Complaint: Anxiety; Headache; HEART PALP/ABD PAIN Follow-Up Instructions: With: Address: Jonathan: YOBANY VANG [address] [place] [address] [place] [id number] [facility] (1) Within AsNeeded Comments: Call for follow up appointment Patient Education Materials: [id number] HEADACHE [unspecified] The cause of your headache today is not clear, but it does not appear to be the sign of any serious illness. Under stress, some people tense the muscles of their shoulder, neck and scalp without knowing it. Ifthis condition lasts long enough, a TENSION HEADACHE can occur. A MIGRAINE HEADACHE is caused by changes in blood flow to the brain. A migraine attack may be triggered by emotional stress, hormone changes during the menstrual cycle, oral contraceptives, alcohol use, certain foods containing tyramine, eye strain, weather changes, missing meals, lack of sleep or over sleeping. Other causes of headache include a viral illness with high fever, head injury with concussion, sinus, ear or throat infection, dental pain and TMJ (jaw joint) pain. More serious but less common causes of headache include stroke, brain hemorrhage, brain tumor, meningitis and encephalitis. HOME CARE: 1. If you were given pain medicine for this headache, do not drive yourself home. Arrange for a ride, instead. When you get home, try to sleep. You should feel much better when you wake up. 2. Apply heat to the back of your neck to relieve neck muscle spasm. Migraine headaches may respond best to an ice pack on the forehead or at the base of the skull. 3. If you are having nausea or vomiting, follow a light diet until your headache is relieved. 4. If you have a migraine type headache, use sunglasses when in the daylight or around bright indoorlighting until symptoms improve. Bright glaring light can worsen this kind of headache. FOLLOW UP with your doctor if the headache is not better within the next 24 hours. If you have frequent headaches you should discuss a treatment plan with your primary care doctor. By being aware of the earliest signs of headache, and starting treatment right away, you may be able to stop the pain yourself. GET PROMPT MEDICAL ATTENTION if any of the following occur: ?? Worsening of your head pain or no improvement within 24 hours ?? Repeated vomiting (unable to keep liquids down) ?? Fever over 100.0??F (37.8??C) ?? Stiff neck ?? Extreme drowsiness, confusion or fainting ?? Dizziness, vertigo (dizziness with spinning sensation) ?? Weakness of an arm or leg or one side of the face Difficulty with speech or vision ?? [id number] [employer], [address] [place] [address], [place] [id number]. All rights reserved. This information is not intended as a substitute for professional medical care. Always follow your healthcare professional's instructions. [id number] HIGH BLOOD PRESSURE -- to be confirmed [...] face Difficulty with speech or vision ?? [id number] [employer], [address] [place] [address]. All rights reserved. This information is not intended as a substitute for professional medical care. Always follow your healthcare professional's instructions. [id number] FAINTING:Vagal Reaction Fainting (syncope) is a temporary loss of consciousness (passing out). It occurs when blood flow to the brain is reduced. Your doctor believes that your episode was due to a vagal reaction. This condition is not a sign of serious disease. A vagal reaction is a reflex response that causes the pulse to slow down or the blood vessels to dilate. This causes the blood pressure to fall, reducing the blood flow to the brain if you are standingor sitting. That results in dizziness, near-fainting or fainting. Lying down usually stops the reaction within 60 seconds. This reflex response can occur during sudden fear, severe pain, emotional stress, overexertion, overheating, hunger, nausea or vomiting, prolonged standing or standing up after sitting or lying for a long time. HOME CARE: 1) Rest today and resume your normal activities as soon as you are feeling back to normal. 2) If you become light-headed or dizzy, lie down immediately or sit with your head lowered between your knees. FOLLOW UP with your doctor as instructed. GET PROMPT MEDICAL ATTENTION if any of the following occur: -- Another fainting spell occurs, which is not explained by the common causes listed above -- Chest, arm, neck, jaw, back or abdominal pain -- Shortness of breath -- Severe headache or seizure -- Blood in vomit, stools (black or red color) -- Unexpected vaginal bleeding -- Palpitations (very rapid or very slow or irregular heart beat) -- Signs of stroke: ?? Weakness of an arm or leg or one side of the face ?? Difficulty with speech or vision Extreme drowsiness, confusion, dizziness or fainting ?? [employer], [address] [place] [address]. All rights reserved. This information is not intended as a substitute for professional medical care. Always follow your healthcare professional's instructions. ED Tests and Procedures: Order Status CBC (includes Auto Differential) Completed Comprehensive Metabolic Panel Completed Urinalysis with Microscopic Ordered Lipase Level Completed C-Reactive Protein Completed CT Head w/o contrast Completed Automated Diff-5 Part Completed Discharge Prescriptions & Home Medications: Medication/Strength Dose Route Frequency Indications/Special Instructions/Comments alprazolam (Xanax 1 mg oral tablet) 1 [...] arrange a ride home with a responsible constitution party. I, DENICE OWENS , or responsible constitution party have received this information and my [...] your doctor about any new or lasting problems . We cannot recognize and treat all injuries or illnesses in one Emergency Department visit. If you had special tests, such as EKG's or X-rays,we will review them again within 24 hours. We will call you if there are any new suggestions. Pleasefollow the instructions above carefully. If you are being transferred to another facility your follow up plan of care will be determined by the receiving facility. If you are a patient that is being discharged from the Emergency Department after receiving narcotics or other medications that may impair your judgment you may be a risk to yourself or others if you operate a motor vehicle. We recommend that you arrange a ride home with a responsible constitution party. ROMAN Velasco JENNIFER LYNN , or responsible constitution party have received this information and my questions have been answered. I have discussed any challenges I see with this plan with the nurse or physician. Patient Signature or Responsible Green Party/Relationship Date/Time Provider Signature Date/Time This document has images extracted. Please consider using [employer] for all your patient education needs. Source: [facility] POWERCHART Document Id: [id number] Kristi Alexander R.N. - 07/20/2011 2:16 AM CDT ED Depart Summary [facility] Emergency Department Clinical Discharge Summary PERSON INFORMATION Name DENICE OWENS Age 31 Years 1980 12:00 AM Sex Female Language Lithuanian PCP YOBANY VANG MD Marital Status Visit Id Visit Reason Anxiety; Headache; HEART PALP/ABD PAIN Specialty Enc Type Emergency Med Service Emergency Medicine Referred by Debi Goodrich [facility] ED/UC Discharge 07/20/2011 1:12 AM Tracking Id [id number] Checkout 07/20/2011 1:12 AM Checkin 07/19/2011 7:55 PM Acuity 3 -Urgent Dispo Type * Discharged to Home or Self Care Arrival 07/19/2011 7:55 PM Reg Status Complete LOS 000 05:17 Address: [address] [place] [phone] Comment: PROVIDER INFORMATION Provider Role Provider Contact Time EV JEFFREY MD ED Provider 07/19/11 20:00 KRISTI ALEXANDER CARDIAC SONOGRAPHER Nurse 07/19/11 20:08 ROXY HOWARD ED Coke Loader 07/19/11 20:23 DIAGNOSIS Headache; Hypertension Comment: PATIENT EDUCATION INFORMATION Instructions: HEADACHE, Unspecified; HYPERTENSION, To Be Confirmed; SYNCOPE, Vasovagal Follow up: With: Address: When: YOBANY VANG [address] [place] [id number] [facility] () Within AsNeeded Comments: Call for follow up appointment Source: [facility] [email or web address] Document Id: [id number] documented in this encounter Nursing Notes Kristi Alexander R.N. - 07/20/2011 1:00 AM CDT ED Pain Assessment ED Pain Assessment Entered On: 07/20/2011 1:08 CDT Performed On: 07/20/2011 1:00 CDT by KRISTI ALEXANDER RN Pain Assessment Pain Symptoms : Yes KRISTI ALEXANDER RN - 07/20/2011 1:07 CDT Pain Pain Assessment Grid Pain 1 Pain 2 Location : Head Abdomen Intensity : 2 KRISTI ALEXANDER RN - 07/20/2011 1:07 CDT KRISTI ALEXANDER RN - 07/20/2011 1:07 CDT Source: [employer] Document Id: [id number] CDT!10 Kristi Alexander R.N. - 07/20/2011 12:20 AM CDT ED Pain Assessment ED Pain Assessment Entered On: 07/20/2011 1:09 CDT Performed On: 07/20/2011 0:20 CDT by KRISTI ALEXANDER RN Pain Assessment Pain Symptoms : Yes KRISTI ALEXANDER RN - 07/20/2011 1:08 CDT Pain Pain Assessment Grid Pain 1 Pain 2 Location : Head Abdomen Intensity : 3 KRISTI ALEXANDER RN - 07/20/2011 1:08 CDT KRISTI ALEXANDER RN - 07/20/2011 1:08 CDT Source: [employer] Document Id: [id number] CDT!10 Kristi Alexander R.N. - 07/19/2011 9:40 PM CDT ED Pain Assessment ED Pain Assessment Entered On: 07/19/2011 23:53 CDT Performed On: 07/19/2011 21:40 CDT by KRISTI ALEXANDER RN Pain Assessment Pain Symptoms : Yes KRISTI ALEXANDER RN - 07/19/2011 23:52 CDT Pain Pain Assessment Grid Pain 1 Pain 2 Location : Head Abdomen Intensity : 9 KRISTI ALEXANDER RN - 07/19/2011 23:52 CDT KRISTI ALEXANDER RN - 07/19/2011 23:52 CDT Source: [facility] POWERCHART Document Id: [id number] CDT!10 Kristi Alexander R.N. 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 ; Life Cycle Status: Active ; [...] Code: 1231 ; Last Updated: 07/01/2011 6:47 BLOOD BANK SPECIALIST ; Life Cycle Status: Active ; [...] TO NGO RN, CNP; Vocabulary: ICD-9-CM Diagnoses(Active) Anxiety Date: 07/19/2011 ; Diagnosis Type: Reason For Visit ; Confirmation: Complaint of ; Clinical Dx: Anxiety ; Classification: Medical ; Clinical Service: Emergency medicine ; Code: PNED ; Probability: 0 ; Diagnosis Code: [id number] Headache Date: 07/19/2011 ; Diagnosis Type: Reason For Visit ; Confirmation: Complaint of ; ClinicalDx: Headache ; Classification: Medical ; Clinical Service: Emergency medicine ; Code: PNED ; Probability: 0 ; Diagnosis Code: [id number] Triage Chief Complaint Description : Patient arrives with complaints of headache, abd pain, and heart racing. Patient does have anxiety problems, has not slept in days. Multiple problems that statesstarts to snowball and then she gets sick. Information Given By : Patient, Spouse Accompanied By : Spouse Mode of Arrival ED : Private vehicle Track : Medical Languages : Lithuanian Vital Signs Assessed : Yes GCS Assessed : Yes KRISTI ALEXANDER RN - 07/19/2011 20:29 CDT Vital Signs Temperature Core : 36.7C(Converted to: 98.1DegF) Apical Heart Rate : 93/min Respiratory Rate : 16/min Systolic Blood Pressure : 142mmHg (HI) Diastolic Blood Pressure : 108mmHg (>HHI) NIBP Mean : 119mmHg BP Location : Right upper extremity SpO2 : 100% Oxygen Therapy : Room air Height : 165cm(Converted to: 5ft 5inch(es)) Estimated Weight : 53kg Estimated Weight Conversion to Pounds : 116.60lb KRISTI ALEXANDER RN - 07/19/2011 20:29 CDT [place] Coma Eye Opening Response [place] : Spontaneously Best Verbal Response Irene : Oriented Best Motor Response [place] : Obeys simple commands [place] Coma Score : 15 KRISTI ALEXANDER RN - 07/19/2011 20:29 CDT Pain Assessment Pain Symptoms : Yes KRISTI ALEXANDER RN - 07/19/2011 20:29 CDT Pain Pain Assessment Grid Pain 1 Pain 2 Location : Head Abdomen Laterality : Bilateral Bilateral (Comment: lower abd [KRISTI ALEXANDER RN - 07/19/2011 20:29 CDT]) Intensity : 8 8 Acceptable Intensity : 0 0 Time Pattern : Acute Acute Onset : Gradual Gradual Quality : Aching Aching Pain Radiation : No No Aggravating Factors : Light None Alleviating Factors : None, Rest Rest Associated Symptoms : Nausea, Palpitations Nausea Interventions : Medications Medications KRISTI ALEXANDER RN - 07/19/2011 20:29 CDT KRISTI ALEXANDER RN - 07/19/2011 20:29 CDT ED Physician Notification Time ED Physician Notification Time : 07/19/2011 20:00 CDT KRISTI ALEXANDER RN - 07/19/2011 20:29 CDT HORACIO HORACIO Level 1 : No HORACIO Level 2 : No HORACIO Level 3 : Many Vital Signs HORACIO : No KRISTI ALEXANDER RN - 07/19/2011 20:29 CDT DCP GENERIC CODE Tracking Acuity : 3 -Urgent Tracking Group : [facility] ED/ KRISTI ALEXANDER RN - 07/19/2011 20:29 CDT Allergy Allergies (Active) NKA Estimated Onset Date: Unspecified ; Created By: BRITTANY WALTON; Reaction Status: Active ; Category: Drug ; Substance: NKA ; Type: Allergy ; Updated By: BRITTANY WALTON; Reviewed Date: 07/19/2011 20:15 CDT Respiratory Airway : Patent Respirations : Unlabored Respiratory Pattern : Regular Oxygen Therapy : Room air KRISTI ALEXANDER RN - 07/19/2011 20:29 CDT Cardiovascular Heart Rhythm : Regular Skin Color : Normal for ethnicity Skin Description : Dry Skin Temperature : Warm KRISTI ALEXANDER RN - 07/19/2011 20:29 CDT Neurological Level of Consciousness : Alert Orientation : Oriented x 3 Characteristics of Speech : Clear Neuro Patient Stated Symptoms : None Gait : Steady Swallowing Difficulty/Aspiration Risk : None Loss of Consciousness : No KRISTI ALEXANDER RN - 07/19/2011 20:29 CDT ED Psychosocial Affect/Behavior : Calm, Cooperative, Flat Domestic Abuse Concerns : None Emotional Support Available : Yes ED Psychosocial Deviation : at bedside KRISTI ALEXANDER RN - 07/19/2011 20:29 CDT Gastrointestinal Nutrition ED : Adequate GI Detailed Assessment : Yes KRISTI ALEXANDER RN - 07/19/2011 20:29 CDT GI Detailed GI Patient Stated Symptoms : Abdominal pain Abdomen Description : Symmetric KRISTI ALEXANDER RN - 07/19/2011 20:29 CDT Musculoskeletal Fall Prevention Education Provided : NA KRISTI ALEXANDER RN - 07/19/2011 20:29 CDT Social Habits Tobacco Use/Currently Using : No Smoking Status : Unknown if ever smoke KRISTI ALEXANDER RN - 07/19/2011 20:29 CDT Tobacco Use Grid Last Use : never KRISTI ALEXANDER RN - 07/19/2011 20:29 CDT Alcohol Use Grid Alcohol Use : Yes Type : Wine Frequency : Weekly Amount : 2 glasses KRISTI ALEXANDER RN - 07/19/2011 20:29 CDT Recreational Drug Use Grid Drug Use : None KRISTI ALEXANDER RN - 07/19/2011 20:29 CDT Source: [employer] Document Id: [id number] CDT!114 documented in this encounter ED Notes Kristi Alexander R.N. - 07/20/2011 1:12 AM CDT ED Disposition Summary ED Disposition Summary Entered On: 07/20/2011 2:14 CDT Performed On: 07/20/2011 1:12 CDT by KRISTI ALEXANDER RN ED Disposition Summary Accompanied By : Spouse Mode of Discharge : Ambulatory Transportation : Private vehicle Discharge From ED With : Home Med List Printed Discharge Instructions Given to Patient : Yes Patient Status at Discharge from ED : Improved Comment : Refused wheelchair. States she can walk with at her side. KRISTI ALEXANDER RN - 07/20/2011 2:13 CDT Source: [employer] Document Id: [id number] CDT!9 Kristi Alexander R.N. - 07/20/2011 12:45 AM CDT ED Nurse Reassess ED Nurse Reassess Entered On: 07/20/2011 1:35 CDT Performed On: 07/20/2011 0:45 CDT by KRISTI ALEXANDER RN Pain Assessment Pain Symptoms : Yes KRISTI ALEXANDER RN - 07/20/2011 1:34 CDT Neuro Reassess Neuro Patient Stated Symptoms : None Level of Consciousness : Alert Orientation : Oriented x 3 Characteristics of Speech : Clear Neuro Note : at bedside. KRISTI ALEXANDER RN - 07/20/2011 1:34 CDT Source: [employer] Document Id: [id number] CDT!9 Kristi Alexander R.N. - 07/20/2011 12:15 AM CDT ED Nurse Reassess ED Nurse Reassess Entered On: 07/20/2011 1:34 CDT Performed On: 07/20/2011 0:15 CDT by KRISTI ALEXANDER RN Pain Assessment Pain Symptoms : Yes KRISTI ALEXANDER RN - 07/20/2011 1:33 CDT Neuro Reassess Neuro Patient Stated Symptoms : None Level of Consciousness : Alert Orientation : Oriented x 3 Characteristics of Speech : Clear Neuro Note : at bedside. KRISTI ALEXANDER RN - 07/20/2011 1:33 CDT Source: [employer] Document Id: [id number] CDT!9 Kristi Alexander R.N. - 07/19/2011 11:45 PM CDT ED Nurse Reassess ED Nurse Reassess Entered On: 07/20/2011 1:33 CDT Performed On: 07/19/2011 23:45 CDT by KRISTI ALEXANDER RN Pain Assessment Pain Symptoms : Yes KRISTI ALEXANDER RN - 07/20/2011 1:33 CDT Neuro Reassess Neuro Patient Stated Symptoms : None Level of Consciousness : Alert Orientation : Oriented x 3 Characteristics of Speech : Clear Neuro Note : remains at bedside. KRISTI ALEXANDER RN - 07/20/2011 1:33 CDT [facility] Document Id: [id number] CDT!9 Kristi Alexander R.N. - 07/19/2011 11:15 PM CDT ED Nurse Reassess ED Nurse Reassess Entered On: 07/20/2011 1:33 CDT Performed On: 07/19/2011 23:15 CDT by KRISTI ALEXANDER RN Pain Assessment Pain Symptoms : Yes KRISTI ALEXANDER RN - 07/20/2011 1:32 CDT Neuro Reassess Neuro Patient Stated Symptoms : None Level of Consciousness : Alert Orientation : Oriented x 3 Characteristics of Speech : Clear Neuro Note : at bedside. KRISTI ALEXANDER RN - 07/20/2011 1:32 CDT Source: [employer] Document Id: [id number] CDT!9 Kristi Alexander R.N. - 07/19/2011 11:05 PM CDT ED Nurse Reassess ED Nurse Reassess Entered On: 07/20/2011 1:35 CDT Performed On: 07/19/2011 23:05 CDT by KRISTI ALEXANDER RN Pain Assessment Pain Symptoms : Yes KRISTI ALEXANDER RN - 07/20/2011 1:35 CDT /OB Reassess /OB Note : Up to bathroom. Steady on feet. at side. KRISTI ALEXANDER RN - 07/20/2011 1:35 CDT Source: [facility] [employer] Document Id: [id number] CDT!5 Kristi Alexander R.N. - 07/19/2011 10:45 PM CDT ED Nurse Reassess ED Nurse Reassess Entered On: 07/20/2011 1:31 CDT Performed On: 07/19/2011 22:45 CDT by KRISTI ALEXANDER RN Pain Assessment Pain Symptoms : Yes KRISTI ALEXANDER RN - 07/20/2011 1:30 CDT Neuro Reassess Neuro Patient Stated Symptoms : None Level of Consciousness : Alert Orientation : Oriented x 3 Characteristics of Speech : Clear Neuro Note : at bedside. KRISTI ALEXANDER RN - 07/20/2011 1:30 CDT Source: [employer] Document Id: [id number] CDT!9 Kristi Alexander R.N. - 07/19/2011 10:15 PM CDT ED Nurse Reassess ED Nurse Reassess Entered On: 07/20/2011 1:30 CDT Performed On: 07/19/2011 22:15 CDT by KRISTI ALEXANDER RN Pain Assessment Pain Symptoms : Yes KRISTI ALEXANDER RN - 07/20/2011 1:30 CDT Neuro Reassess Neuro Patient Stated Symptoms : None Level of Consciousness : Alert Orientation : Oriented x 3 Characteristics of Speech : Clear Swallowing Difficulty/Aspiration Risk : None Neuro Note : at bedside. KRISTI ALEXANDER RN - 07/20/2011 1:30 CDT Source: [employer] Document Id: [id number] CDT!10 Kristi Alexander R.N. - 07/19/2011 10:00 PM CDT ED Treatments and Procedures ED Treatments and Procedures Entered On: 07/20/2011 3:41 CDT Performed On: 07/19/2011 22:00 CDT by KRISTI ALEXANDER RN Incision/Wound Incision/Wound Care Grid Wound Numbering : 1 Activity : Assessed Type : Hematoma Location : Head (Comment: Upper left forehead [KRISTI ALEXANDER RN - 07/20/2011 3:40 CDT] ) Laterality : Left Description : Dry, Raised, Tender Color : Red Drainage : None Drainage Amount : None Surrounding Tissue : Dry, Intact KRISTI ALEXANDER RN - 07/20/2011 3:40 CDT Source: [employer] Document Id: [id number] CDT!14 Kristi Alexander R.N. - 07/19/2011 9:50 PM CDT ED Treatments and Procedures ED Treatments and Procedures Entered On: 07/20/2011 1:20 CDT Performed On: 07/19/2011 21:50 CDT by KRISTI ALEXANDER RN Orthopedic Tx Orthopedic Treatment Instructions Given Treatment Site : Other: Left forehead Treatment Laterality : Left Treatments Done : Ice applied Treatment Performed By : ELIO Neal SHARI ANN RN - 07/20/2011 1:19 CDT Source: [employer] Document Id: [id number] CDT!8 Ev Jeffrey M.D. - 07/19/2011 8:15 PM CDT Headache *ED Patient: DENICE OWENS Age: 31 years Sex: Female : 1980 Author: EV JEFFREY MD Attachments: None Associated Diagnosis: Headache; Hypertension Basic Information Time seen: Date & time 07/19/2011 20:05:00, Immediately upon arrival. History source: Patient, significant other. Arrival mode: Private vehicle. History limitation: None. History of Present Illness The patient presents with headache andinsomnia;abdominal pain;hypertension- all conditions are episodic with insomnia one of the worse. Patient scheduled for exersize treadmill test in 4 days.. The onset was 3 days ago and chronic. The course/duration of symptoms is worsening and episodic: with multiple episodes. Location: generalized. Radiating pain: none. The character of symptoms is sharp, achy and pressure. The degree at onset was minimal. The degree at maximum was severe. The degree at present is severe and 8 /10. . Exacerbating factors consist of exertion. The relieving factor is none. Risk factors consist of none. Prior episodes: frequent. Therapy today: prescription medications. Preceding s ymptoms: none. Associated symptoms: nausea, dizziness and near- syncope. Review of Systems Constitutional symptoms: Negative except [...] NKA Medications: . Prescriptions and Home Medications dextroamphetamine-amphetamine (Adderall), 10 mg, PO, Daily AM metoclopramide (Reglan 10 mg oral tablet), 20 mg, 2 tab(s), PO, Once, 2 tablets one time for each headache, 10 tab(s) zolpidem (Ambien 10 mg oral tablet), 10 mg, 1 tab(s), PO, Bedtime, sleep disturbance, 21 tab(s) Past Medical/ Family/ Social History Medical history: Medical history. Resolved acute pyelonephritis (590.10): Onset in 2010 at 30 years. Resolved. Bilateral tubal ligation ([id number]): Onset in 2008 at 28 years. Resolved. delivery NOS (669.71): Onset in 2001 at 21 years. Resolved. Headache Migraine (346.90): Onset in 2000 at 20 years. Resolved. section (47974435): Onset in 1999 at 19 years. Resolved. Appendectomy (359237349): Onset in 1997 at 17 years. Resolved. Surgical history: Surgical history. Pap smear ([id number]) in 2010 at 30 Years. Comments: 07/14/2011 13:49 - PAULINE KIM normal results Family history: Family history. Hypertension Father Problem list: . All Problems Anxiety disorder NOS / 300.00 / Confirmed Flushing / 782.62 / Confirmed Headache / 784.0 / Confirmed Palpitation / 785.1 / Confirmed Sleep disturbance, unspecified / 780.50 / Confirmed Tachycardia NOS / 785.0 / Confirmed Physical Examination Vital signs: Vital Signs, 07/19/2011 19:35 CDT Systolic Blood Pressure 120 mmHg Diastolic Blood Pressure 96 mmHg >HHI Mean Arterial Pressure 104 mmHg BP Location Right upper 07/19/2011 19:31 CDT Temperature Core 37.0 C Peripheral Pulse Rate 112 /min HI Respiratory Rate 16 /min SpO2 99 % Systolic Blood Pressure 122 mmHg Diastolic Blood Pressure 96 mmHg >HHI Mean Arterial Pressure 105 mmHg BP Location Right upper Measurements, 07/19/2011 19:31 CDT Dosing Weight 53.30 kg Actual Weight 53.3 kg Oxygen saturation Oxygen Therapy & Oxygenation Information. 07/19/2011 19:31 CDT Oxygen Therapy Room air General: Alert. moderate distress. Skin: Warm. dry. pink. intact. no pallor. [...] Normal bowel sounds. No organomegaly. Genitourinary: No tenderness. no discharge. normal external genitalia. no lesions. Neurological: Alert and oriented to person, place, time, and situation. No focal neurological deficit observed. CN II-XII intact. normal sensory observed. normal motor observed. normal speech observed.normal coordination observed. Lymphatics: No lymphadenopathy Psychiatric: Cooperative. appropriate mood & affect. normal judgment. non-suicidal. Medical Decision Making OrdersLaunch Orders, Pharmacy: Dilaudid (Order Processing): 1 mg, IV, OnceLaunch Orders. Pharmacy: Haldol (Order Processing): 2 mg, IV, Once Results review:Lab results : Lab View. 07/19/2011 20:20 CDT Hgb 13.5 g/dL Hct 39.3 % WBC 7.2 x10(9)/L RBC 4.18 x10(6)uL MCV 94 fL RDW 12.4 % Platelet 160 x10(9)/L Neutro % 39.8 % LOW Lymph % 50.8 % HI Tama % 6.6 % Eos % 2.2 % Baso % 0.6 % Neutro Absolute 2.9 10(9)/L Lymph Absolute 3.6 x10(9)/L HI Tama Absolute 0.5 K/mm3 Eos Absolute 0.2 K/mm3 Baso Absolute 0.0 K/mm3 Sodium Lvl 142 mM/L Potassium Lvl 3.4 mM/L LOW Chloride 106 mmol/L CO2 22 mmol/L AGAP 17 mmol/L Alkaline Phosphatase 52 IntU/L Glucose Lvl 80 mg/dL Creatinine 0.7 mg/dL EGFR (MDRD) >60 mL/min NA EGFR (MDRD) >60 mL/min NA BUN 15.4 mg/dL BUN/Creat Ratio 22 NA Calcium Lvl 8.9 mg/dL Protein Total 6.9 gm/dL Albumin Lvl 3.9 G/DL AST 18 IntU/L ALT <20 IntU/L Bili Total <0.40 mg/dL Lipase Lvl 106 IntU/L CRP <0.5 mg/dL Reexamination/ Reevaluation Re-examination/Re-evaluation:Time 07/19/2011 21:36:00, Vital signsPatient tried to stand without signalling for nurse's help after scooting down to the end of her bed. She became lightheaded and fainted falling to the floor hitting her left forehead without loss of consciousness. She has a bruise on the left side of her forehead. Her neurologic exam is normal and she states that this lightheadedness has occurred quite alot. Patient is being sent for a non- contrast head CT. This occurred at 21:35., Radiologist called back about 22:10 to say that the patient's Head CT was normal. The patient and her were informed of the results. The patient is doing okay but states that the headache pain which had decreased to a level of 3 to 4 is now back up to 8 or 9/10. She would like some more pain medication.. Impression and Plan Diagnosis Headache (Discharge, Emergency medicine, Medical) Hypertension (Discharge, Emergency medicine, Medical) abdominal pain vasovagal syncope 71111 Discharge plan Condition: Improved. Dispositioned: To home. Patient was given the following educational materials: HEADACHE, Unspecified, HYPERTENSION, To Be Confirmed, SYNCOPE, Vasovagal, HEADACHE, Unspecified, HYPERTENSION, To Be Confirmed, SYNCOPE, Vasovagal. Limitations: note to the effect that it is appropriate to work at home for the next 2 weeks while undergoing a series of medical tests. From 07/20/2011 to 08/03/2011.. Follow up with: YOBANY Wild As Needed Call for follow up appointment. Counseled: Patient, Family, Regarding diagnosis, Regarding diagnostic results, Regarding treatment plan, Regarding prescription, Patient indicated understanding of instructions. Electronically Signed By: EV JEFFREY MD On: 07/20/2011 01:05 AM Modified by and Electronically Signed by: EV JEFFREY MD On: 07/20/2011 01:05 AM Source: [facility] POWERCHART Document Id: [id number]} documented in this encounter Miscellaneous Notes Miscellaneous - Kristi Alexander RCinthiaN. - 07/20/2011 1:12 AM CDT Valuables/Belongings Valuables/Belongings Entered On: 07/20/2011 2:14 CDT Performed On: 07/20/2011 1:12 CDT by KRISTI ALEXANDER RN Valuables/Belongings Valuables/Belongings Grid Valuables with Patient Clothes, Patient Valuables : Pants, Shirt, Shoes Monetary Items : KRISTI Zacarias RN - 07/20/2011 2:14 CDT Home Medication Disposition : None brought in with patient KRISTI ALEXANDER RN - 07/20/2011 2:14 CDT Source: [facility] [employer] Document Id: [id number] CDT!7 Jennifercellmadeline - Kristi Alexander R.N. - 07/20/2011 1:12 AM CDT Adult Pain Assessment Adult Pain Assessment Entered On: 07/20/2011 2:15 CDT Performed On: 07/20/2011 1:12 CDT by KRISTI ALEXANDER RN Pain Pain Assessment Grid Pain 1 Pain 2 Location : Head Abdomen Intensity : 2 0 KRISTI ALEXANDER RN - 07/20/2011 2:14 CDT KRISTI ALEXANDER RN - 07/20/2011 2:14 CDT Source: [employer] Document Id: [id number] CDT!9 Andree - Kristi Alexander R.N. - 07/19/2011 11:35 PM CDT Communication Note Communication Note Entered On: 07/19/2011 23:43 CDT Performed On: 07/19/2011 23:35 CDT by KRISTI ALEXANDER RN Communication Assessment Communication Note : Meds given. Will monitor. Call light at bedside. at bedside. KRISTI ALEXANDER RN - 07/19/2011 23:43 CDT Source: [facility] [employer] Document Id: [id number] CDT!3 Andree - Kristi Alexander R.N. - 07/19/2011 9:50 PM CDT Communication Note Communication Note Entered On: 07/20/2011 1:22 CDT Performed On: 07/19/2011 21:50 CDT by KRISTI ALEXANDER RN Communication Assessment Communication Note : here. Explained fall to him and post care. in understanding and questions answered. States she does this at home at times where she will fall and then takes several gasps for air and then comes to. KRISTI ALEXANDER RN - 07/20/2011 1:20 CDT Source: [facility] POWERCHART Document Id: [id number] CDT!3 Miscellaneous - Kristi Alexander R.N. - 07/19/2011 9:35 PM CDT Communication Note Communication Note Entered On: 07/19/2011 22:51 CDT Performed On: 07/19/2011 21:35 CDT by KRISTI ALEXANDER RN Communication Subject of Note : Fall Assessment Communication Note : Patient found laying on the floor. Unable arouse patient and yelled for help. Nurse x2 carried patient back to bed. Patient with eyes open at this time, slow to come around. Skin cool to touch. After approx 30 seconds, patient alert and able to state where she is. Goose-egg noted to left forehead, tender with touch. Denies neck pain or pain any where else. Patient states she woke up and felt dizzy. Call light was within patients reach, hanging on the side of the bed. States she scooted to the end of the bed to put her head between her legs and doesn't remember anything after that. Patient found approximately several steps away from the bed, face down. States she does not remember falling or hitting the floor. Staff did not hear patient fall. Patient rates head pain 8/10 after falling. Vitals taken, stable at this time. flux core welder applied. Will apply ice to forehead. Rough Patcher notified. Intervention : Physician/Provider notified, Patient/Family reassured, Safety measures in place Name of provider notified : EV JEFFREY MD Name of provider notified d/t : 07/19/2011 21:35 CDT Response : Will continue with Neuro checks on patient. will be notified of event when he arrives. Explained to patient the neuro checks and frequent vitals. Patient in understanding. KRISTI ALEXANDER RN - 07/19/2011 21:58 CDT Source: [facility] [email or web address] Document Id: [id number] CDT!8 Miscellaneous - Kristi Alexander R.N. - 07/19/2011 9:15 PM CDT Communication Note Communication Note Entered On: 07/19/2011 21:48 CDT Performed On: 07/19/2011 21:15 CDT by KRISTI ALEXANDER RN Communication Assessment Communication Note : Patient appears to be sleeping. KRISTI ALEXANDER RN - 07/19/2011 21:47 CDT Source: [facility] [employer] Document Id: [id number] CDT!3 Miscellaneous - Kristi Alexander R.N. - 07/19/2011 8:50 PM CDT Communication Note Document Has Been Updated Communication Note Entered On: 07/19/2011 21:47 CDT Performed On: 07/19/2011 20:50 CDT by KRISTI ALEXANDER RN Communication Assessment Communication Note : Meds given. Will monitor and assess. left to go home for a short while. Call light within reach on bed. KRISTI ALEXANDER RN - 07/19/2011 21:54 CDT Source: [facility] [employer] Document Id: [id number] CDT!3 Miscellaneous - Zac, Historical Provider Ser - 07/19/2011 7:55 PM CDT Facility Charge Ticket Facility Charge Ticket Entered On: 07/24/2011 15:54 CDT Performed On: 07/19/2011 19:55 CDT by REGINA MELLO Facility Charge TVL Level for Facility Charge Ticket : Level 4 Mode of Arrival ED : Private vehicle [facility] Mode of Arrival Interpreted : Standard [facility] Process Management : None [facility] Order Management : CT/MRI/Ultrasound, Lab tests 30 Minutes Critical Care : No [facility] Nursing Assessment : Triage and 6+ nursing assessments [facility] Disposition : Discharge [facility] Total Points with Diagnosis Control : 12 [facility] Visit Level : 98559 Level 4 REGINA MELLO - 07/24/2011 15:53 CDT Source: [employer] Document Id: [id number] CDT!12 documented in this encounter Plan of Treatment Not on filedocumented as of this encounter Procedures Procedure Name Priority Date/Time Associated Comments Diagnosis CT HEAD WITHOUT IV Routine 07/19/2011 9:53 PM Res ults for this CONTRAST CDT procedure are i n the results section. AUTOMATED Routine 07/19/2011 8:20 PM Results f or this DIFFERENTIAL, B CDT procedure ar e in the results section. CBC WITH DIFFERENTIAL, Routine 07/19/2011 8:20 PM Results for this B CDT procedure are i n the results section. C-REACTIVE PROTEIN Routine 07/19/2011 8:20 PM Res ults for this (CRP), S/P CDT procedure are i n the results section. LIPASE, S/P Routine 07/19/2011 8:20 PM Results f or this CDT procedure are i n the results section. COMPREHENSIVE Routine 07/19/2011 8:20 PM Results for this METABOLIC PANEL, S/P CDT procedu re are in the results section. documented in this encounter Results CT Head without IV Contrast (07/19/2011 9:53 PM CDT) Anatomical Region Laterality Modality Head N/A Computed Tomography Specimen (Source) Anatomical Collection Method Collection Time Re ceived Time Location / / Volume Laterality 07/19/2011 9:53 PM CDT Impressions 07/19/2011 10:09 PM CDT Negative head. Narrative 07/19/2011 10:09 PM CDT EXAM: CT Head w/o contrast INDICATION: patient fell in the er; head pain COMPARISON: No prior examination availab le for comparison. FINDINGS: No intracranial hemorrhage, ma ss effect, or evidence of acute ischemia. No calvarial fracture. P aranasal sinuses are clear. Results phones to Dr. Ev Jeffrey at 1 0:05pm on 07/19/2011. Procedure Note Mayelin Wills M.D. / Provider, Juve alberts M.D. - 09/15/2016 EXAM: CT Head w/o contrast INDICATION: patient fell in the er; head pain COMPARISON: No prior examination availab le for comparison. FINDINGS: No intracranial hemorrhage, ma ss effect, or evidence of acute ischemia. No calvarial fracture. P aranasal sinuses are clear. Results phones to Dr. Ev Jeffrey at 1 0:05pm on 07/19/2011. IMPRESSION: Negative head. Patricia Garcia RTrina(R), RCinthiaTCinthia(R)(M) IMG CT PROCEDURE S (ABNORMAL) Automated Differential (07/19/2011 8:20 PM CDT) Patholo gist Method Time Signature Neutro % 39.8 (L) 41.0 - POWERCHART 77.0 Lymphocytes % 50.8 (H) 20.0 - POWERCHART 45.0 HX Tama % 6.6 0.0 - 12.0 POWERCHART HX Eos % 2.2 0.0 - 6.0 POWERCHART HX Baso % 0.6 0.0 - 2.0 POWERCHART Absolute 2.9 1.7 - 7.0 POWERCHART Neutrophils 109L Lymphocytes 3.6 (H) 0.9 - 2.9 POWERCHART X109L Monocytes 0.5 0.0 - 0.8 POWERCHART KMM3 Eosinophils 0.2 0.0 - 0.5 POWERCHART KMM3 Absolute 0.0 0.0 - 0.2 POWERCHART Basophil KMM3 Comment: slide review correlates. Specimen Anatomical Collection Method Collection Time Receive d Time (Source) Location / / Volume Laterality Blood 07/19/2011 8:20 PM 2 8:20 CDT PM CDT Ev Jeffrey M.D. LAB BLOOD ADD-ON Performing Organization Address City/State/ZIP Code Phon e Number POWERCHART CBC with Differential (07/19/2011 8:20 PM CDT) athologist Signature Leukocytes 7.2 3.8 - 10.0 POWERCHART X109L Erythrocytes 4.18 3.85 - 5.01 POWERCHART X106UL Hemoglobin 13.5 12.0 - 15.5 POWERCHART GDL Hematocrit 39.3 36.0 - 48.0 POWERCHART MCV 94 80 - 100 FL POWERCHART HX RDW 12.4 10.0 - 15.0 POWERCHART Platelet Count 160 140 - 400 POWERCHART X109L Specimen (Source) Anatomical Collection Method Collection Time Re ceived Time Location / / Volume Laterality Blood 07/19/2011 8:20 PM CDT Ev Jeffrey M.D. LAB BLOOD ADD-ON Performing Organization Address City/State/ZIP Code Phon e Number POWERCHART CRP (C-Reactive Protein) (07/19/2011 8:20 PM CDT) P athologist Signature C-Reactive <0.5 0.3 - 0.9 POWERCHART Protein (CRP), MGDL S Specimen (Source) Anatomical Collection Method Collection Time Re ceived Time Location / / Volume Laterality Blood 07/19/2011 8:20 PM CDT Ev Jeffrey M.D. LAB BLOOD ADD-ON Performing Organization Address City/State/ZIP Code Phon e Number POWERCHART Lipase (07/19/2011 8:20 PM CDT) athologist Signature Lipase, S 106 23 - 300 POWERCHART INTUL Specimen (Source) Anatomical Collection Method Collection Time Re ceived Time Location / / Volume Laterality Blood 07/19/2011 8:20 PM CDT Ev Jeffrey M.D. LAB BLOOD ADD-ON Performing Organization Address City/State/ZIP Code Phon e Number POWERCHART (ABNORMAL) CMP (Comprehensive Metabolic Panel) (07/19/2011 8:20 PM CDT) P athologist Signature Glucose 80 70 - 139 POWERCHART MGDL Comment: Reference Range: 70 - 99 mg/dL - Fasting 70 - 139 mg/dL - Non Fasting BUN (Blood Urea Nitrogen), S 15.4 6.0 - 21.0 MGDL POWERCHART Creatinine, S 0.7 0.6 - 1.4 MGDL POWERCHART HXeGFR (MDRD) >60 MLMIN POWERCHART eGFR Black/ >60 MLMIN PO WERCHART BUN/Creatinine Ratio 22 POWERCHAR T Sodium, S 142 136 - 148 MML POWERCHART Potassium, S 3.4 (L) 3.5 - 5.0 MML POWERCHART Chloride, S 106 100 - 111 MMOLL POWERCHART CO2 Total 22 21 - 32 MMOLL POWERCHART Anion Gap 17 10 - 20 MMOLL POWERCHART Albumin, S 3.9 3.5 - 5.0 GDL POWERCHART Alanine Amniotransferase, LD <20 10 - 43 INTUL POWERCHART Aspartate Aminotransferase (AST), S 18 15 - 46 INTUL POWERCHART Alkaline Phosphatase, S 52 38 - 126 INTUL P OWERCHART Bilirubin, Total, S <0.40 0.10 - 1.00 MGDL POW ERCHART Total Protein, S 6.9 6.3 - 8.2 GMDL POWERCHA RT Calcium, Total, S 8.9 8.4 - 10.4 MGDL POWERC RUIZ Comment: Falsely lowered Calcium results have been associated with gadolinium contrast in MRI scans. If this is a poss ibility, contact lab for alternatives Specimen (Source) Anatomical Collection Method Collection Time Re ceived Time Location / / Volume Laterality Blood 07/19/2011 8:20 PM CDT Ev Jeffrey M.D. LAB BLOOD ADD-ON Performing Organization Address City/State/ZIP Code Phon e Number POWERCHART documented in this encounter Visit Diagnoses Not on filedocumented in this encounter
--- OUTSIDE RECORDS SUMMARY | 2021-12-10 15:40 | XMS_ITS | Encounter Summary ---
:1980 Author Organization [facility] Address [address] [place] [address] Care Team Providers Name Role Phone Unavailable Primary Care Provider Unavailable Encounter Details Date Type Department Care Team Description 09/24/2010 Hospital Encounter HX [facility] MRI Gustavo Johnson M.D. 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
--- OUTSIDE RECORDS SUMMARY | 2021-12-10 15:40 | XMS_ITS | Encounter Summary ---
:1980 Author Organization [facility] Address [address] [place] [address] Care Team Providers Name Role Phone Unavailable Primary Care Provider Unavailable Encounter Details Date Type Department Care Team Description 08/21/2010 Hospital Encounter HX [facility] FAMILY[facility] Carlos Vang M.D. 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 - 08/21/2010 12:00 AM CDT [id number] CHIEF COMPLAINT/REASON FOR VISIT Near syncope. HISTORY OF PRESENT ILLNESS This 30-year-old lady comes here today complaining of an episode of near syncope which she sustained yesterday. Patient was at work when she suddenly felt as if she was going to pass out. She had some headache too and she took a blood pressure reading at that point. It was noted that her blood pressure at that point was around 145/117 with a heart rate of 140. Patient was then sent immediately to [place] emergency room where they looked at an EKG which was done in the patient's working place and said that it was nothing concerning and was sent home. Patient was really shaky at that point. Did not have any other physical problems and denied any chest pain. No shortness of breath but the symptoms lasted for almost 4 hours. It got better slowly. She did take a dose of tramadol yesterday morning for her right knee pain. Patient currently says that she feels almost normal. Denies any ongoing complaints. Denies shortness of breath. Denies nausea, vomiting, diarrhea. Denies chest pain. Denies dizziness or any visual disturbance. PAST MEDICAL/SURGICAL HISTORY Reviewed. CURRENT MEDICATIONS Reviewed. ALLERGIES Reviewed. SOCIAL HISTORY Reviewed. FAMILY HISTORY Reviewed. SYSTEMS REVIEW As above. All other systems reviewed and negative. PHYSICAL EXAM VITAL SIGNS: Blood pressure of 108/70. Heart rate of 92. Temperature 37.7. Saturating at 98% with weight of 56 kg and height is 168.70 cm. GENERAL: In no apparent distress, comfortable and cooperative. HEENT: Normocephalic, atraumatic. EOMI. PERRL. No conjunctival injection. Nose patent bilaterally without erythema or drainage. Oropharynx: [place] mucous membranes without lesions, exudate or drainage. NECK: Supple without lymphadenopathy. No thyromegaly or thyroid masses. CARDIOVASCULAR: Regular rate and rhythm without murmur, gallop or rubs. LUNGS: Clear to auscultation bilaterally without wheezing or rales. ABDOMEN: Soft, nontender and nondistended. Normal active positive bowel sounds. No hepatosplenomegaly or masses appreciated. EXTREMITIES: No clubbing, cyanosis or edema. LABORATORY/RADIOLOGY EKG which was done yesterday and which was performed today, another one, was reviewed with the patient. Currently the patient is in sinus rhythm without any HDOT. Report also reviewed with the patient. IMPRESSION/REPORT/PLAN Near syncope, first episode for the patient. Patient denies any prior such episodes in the past. Denies any history of heart disease. Also denies any history of family history of significant heart disease or sudden in the family. Since this is a first attack I did tell her about the benign nature of the disease. I do not suspect hypertension would have been the culprit in the sensation. I have asked her to monitor the symptoms for now. In the meantime I have sent her for CBC with differential with chem 14 and thyroid panel. Patient agrees with the plan. I am going to see the patient back as needed. Isabell Tamayo,B.S./sugar Electronically Signed By: CARLOS VANG MD On: 09/01/2010 11:05 Source: 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 Services Consultant Intake/History Entered On: 08/21/2010 8:43 CDT Performed On: 08/21/2010 8:40 CDT by JENN LR LPN Intake Chief Complaint: HTN Peripheral Pulse Rate: 92/min Systolic Blood Pressure: 108mmHg Diastolic Blood Pressure: 70mmHg NIBP Mean: 83mmHg BP Location: Right upper extremity (Comment: large cuff [JENN LR LPN - 08/21/2010 8:40 CDT] ) Height: 168.70cm(Converted to: 5ft 6in, 66.42in) Actual Weight: 56.000kg(Converted to: 123lb 7oz) Dosing Weight Clinic: 56.00kg Clinic BSA: 1.62 Body Mass Index: 19.68kg/m2 JENN LR LPN - 08/21/2010 8:40 CDT Subjective Pain Symptoms: No JENN LR LPN - 08/21/2010 8:40 CDT Dependent Habits Tobacco Use/Currently Using: No Tobacco Use/Last 12 months: No Alcohol Use: Yes JENN LR LPN - 08/21/2010 8:40 CDT Caffeine Use Grid Caffeine Use: Current Type: Soft drinks Frequency: Daily JENN LR LPN - 08/21/2010 8:40 CDT Recreational Drug Use Grid Drug Use: None JENN LR LPN 08/21/2010 8:40 CDT Allergy Allergies (Active) NKA Estimated Onset Date: Unspecified ; Created By: BRITTANY WALTON; Reaction Status: Active ; Category: Drug ; Substance: NKA ; Type: Allergy ; Updated By: BRITTANY WALTON; Reviewed Date: 08/21/2010 8:39 CDT Source: [employer] Document Id: [id number] CDT!27 documented in this encounter Plan of Treatment Not on filedocumented as of this encounter Visit Diagnoses Not on filedocumented in this encounter
[2021-12-10 16:52] LABS: Potassium* 4.2 mmol/L (3.6-5.1)
== END 2021-12-10 15:28 | disposition home or self-care (01) ==
LOC: NPINS 15:27
PROVIDERS: PCP Family Medicine
DX: L70.0 Acne vulgaris (principal)
CPT/HCPCS: 84132